=== PATIENT | male | born 1950 | race Caucasian/White ===

== ENCOUNTER 2016-11-12 08:51 | Inpatient (IN) | payer MEDICARE, OTHER ==
[2016-11-12] VITALS (17 sets, daily range): BP systolic 72–136; BP diastolic 44–91; PULSE 102–128; RESP 17–23; TEMP 97–100.4; O2SAT 90–100
[~2016-11-12] VITALS: Ht 177.8 cm; Wt 81.3 kg
[~2016-11-12 08:51] MED LIST: ALBU0.08 NEB; ATEN25TA PO; CARD180C5 PO; DULC10SU3 RECTAL; ENOX60P SQ; FOLI1TAB4 PO; LEVA750T PO; LIPI40TA PO; LISI-519 PO; MAGN400T3 PO; METO25TA3 PO; METR-1 PO; PLAV75TA29 PO; PRED10 PO; REST15CA PO; SPIRCAP INH; THERTAB15 PO; VENTAER INH; VITA100T2 PO; VITA500T PO; ZINC220C3 PO
[2016-11-12] MEDS ORDERED: PIPERACIL-TAZO 4.5 GM PREMIX 100 ML IV STA (09:08)
[2016-11-12] MEDS ORDERED: SODIUM CHLOR 0.9% 1000 ML INJ 700 ML IV ONE (09:08)
[2016-11-12] MEDS ORDERED: SODIUM CHLOR 0.9% 1000 ML INJ 1,000 ML IV ONE ×3 (09:08→13:30)
--- NOTE | 2016-11-12 10:06 | PD ---
HPI Chief Complaint: Altered Mental Status Time Seen by Provider: 09:08 Travel History International Travel<30 days: No Contact w/Intl Traveler<30days: No Traveled to known affect area: No History of Present Illness HPI This is a 65 year-old gentleman history of lung cancer, COPD, coronary artery disease, who presents from the snf with elevated temperature, hypotension, confusion. The patient was in the process of being started on antibiotics for a UTI however prior to starting the antibiotics, he was found to be profoundly hypotensive, confused with an elevated temperature. The patient also has multiple skin ulcers including his sacral area and his bilateral ankles. The patient is unable to give any history. He arrived his systolic blood pressure was in the 70s. He had a rectal temperature of 100.4. He was also tachycardic with a heart rate of 106. PFSH Past Medical History Cancer: No Cardiovascular Problems: No Diabetes: No Diminished Hearing: No Endocrine: No Genitourinary: No Hepatitis: No Hiatal Hernia: No Hypertension: Yes Immune Disorder: No Musculoskeletal: No Neurologic: No Psychiatric: No Respiratory: Yes (COPD) Thyroid Disease: No Past Surgical History Abdominal Surgery: Yes (appendectomy,left inguinal hernia repair x2) AICD: No Joint Replacement: No Oral Surgery: Yes (t&a) Pacemaker: No Other Surgery: Yes Social History Alcohol Use: No Tobacco Use: No Substance Use: No Allergies-Medications (Allergen,Severity, Reaction): Coded Allergies: No Known Allergies (Unverified , 07/08/16) Reported Meds & Prescriptions Reported Meds & Active Scripts Active Spiriva Handihaler (Tiotropium Inh) 18 Mcg Cap 18 Mcg INH DAILY 30 Days Ventolin Hfa 18 GM Inh (Albuterol Sulfate) 90 Mcg/Act Aer 2 Puff INH Q6H 30 Days Thera/Beta-Carotene (Multiple Vitamin) 1 Tab Tab 1 Tab PO DAILY 30 Days Zinc Sulfate 220 Mg Cap 220 Mg PO DAILY Vitamin B-1 (Thiamine HCl) 100 Mg Tab 100 Mg PO DAILY Lisinopril 5 Mg Tab 2.5 Mg PO DAILY Cardizem CD 24 HR (Diltiazem CD 24 HR) 180 Mg Caper 180 Mg PO DAILY Lipitor (Atorvastatin Calcium) 40 Mg Tab 40 Mg PO HS Atenolol 25 Mg Tab 12.5 Mg PO DAILY Vitamin C (Ascorbic Acid) 500 Mg Tab 500 Mg PO BID Reported Cipro (Ciprofloxacin HCl) 500 Mg Tab 500 Mg PO BID 7 Days Pyridium (Phenazopyridine HCl) 100 Mg Tab 100 Mg PO TID START:11/13/2016 Prosource Plus (Nutritional Supplements) 1 Liq Liq 30 Ml PO TID Lac-Hydrin (Lactic Acid (Ammonium Lactate)) 12% Lotn 1 Applic TOPICAL BID Apply to entire body excluding skin folds and web spaces Lovenox Inj (Enoxaparin Sodium) 100 Mg/Ml Syr 90 Mg SQ DAILY Remeron (Mirtazapine) 15 Mg Tab 15 Mg PO HS Ativan (Lorazepam) 0.5 Mg Tab 0.5 Mg PO Q8H PRN Ventolin Hfa 18 GM Inh (Albuterol Sulfate) 90 Mcg/Act Aer 2 Puff INH Q4H PRN Restoril (Temazepam) 15 Mg Cap 15 Mg PO HS Zofran (Ondansetron HCl) 8 Mg Tab 8 Mg PO Q8HR PRN Citroma Liq (Magnesium Citrate) 300 Ml Liq 300 Ml PO DAILY PRN Enema Disposable (Sodium Phosphates) 1 Veronica Veronica 1 Applic [place] DAILY PRN Milk of Magnesia Liq (Magnesium Hydroxide) 400 Mg/5 Ml Susp 30 Ml PO DAILY PRN Prednisone 10 Mg Tab 10 Mg PO DAILY Melatonin 3 Mg Tab 3 Mg PO HS Magnesium Oxide 400 Mg Tab 400 Mg PO BID Albuterol Neb (Albuterol Sulfate) 2.5 Mg/3 Ml Neb 2.5 Mg NEB Q2HR PRN Albuterol Neb (Albuterol Sulfate) 2.5 Mg/3 Ml Neb 2.5 Mg NEB QID Tylenol (Acetaminophen) 325 Mg Tab 650 Mg PO Q4H PRN Plavix (Clopidogrel Bisulfate) 75 Mg Tab 75 Mg PO DAILY Folate (Folic Acid) 1 Mg Tab 1 Mg PO DAILY Dulcolax Supp (Bisacodyl) 10 Mg Supp 10 Mg RECTAL DAILY PRN Review of Systems ROS Limitations: Clinical Condition, Altered Mental Status Except as stated in HPI: all other systems reviewed are Neg Physical Exam Narrative GENERAL: Elderly ill appearing gentleman in no acute respiratory distress. SKIN: Warm and dry. HEAD: Atraumatic. Normocephalic. EYES: No scleral icterus. No injection or drainage. ENT: No nasal bleeding or discharge. Dry mucous membranes NECK: Trachea midline. No JVD. CARDIOVASCULAR: Tachycardic with regular rhythm. No murmur appreciated. RESPIRATORY: No accessory muscle use. Clear to auscultation. Decreased respiratory effort GASTROINTESTINAL: Abdomen soft, cachectic, non-tender, nondistended. BACK: The patient has stage I and stage II pressure sores on his buttocks. There was a pressure dressing placed here. MUSCULOSKELETAL: Bilateral ankle pressure wounds. NEUROLOGICAL: Lethargic and obtunded. Would not follow commands but was observed moving his extremities on his own. Data Data Last Documented VS Vital Signs Date Time Temp Pulse Resp B/P Pulse Ox O2 Delivery O2 Flow Rate FiO2 11/12/16 11:00 98.4 104 17 104/59 98 Non-Rebreather 100 Orders Complete Blood Count With Diff (11/12/16 09:08) Comprehensive Metabolic Panel (11/12/16 09:08) Lactic Acid Sepsis Protocol (11/12/16 09:08) Urinalysis - C+S If Indicated (11/12/16 09:08) Blood Culture (11/12/16 09:08) Chest, Single Ap (11/12/16 09:08) Blood Glucose (11/12/16 09:08) Ecg Monitoring (11/12/16 09:08) Iv Access Insert/Monitor (11/12/16 09:08) Oximetry (11/12/16 09:08) Oxygen Administration (11/12/16 09:08) Piperacil-Tazo 4.5 Gm Premix (Zosyn 4.5 (11/12/16 09:08) Sodium Chlor 0.9% 1000 Ml Inj (Ns 1000 M (11/12/16 09:08) Sodium Chlor 0.9% 1000 Ml Inj (Ns 1000 M (11/12/16 09:08) Sodium Chlor 0.9% 1000 Ml Inj (Ns 1000 M (11/12/16 09:08) Consult Vascular Access Team (11/12/16 ) Vascular Poc Ultrasound (11/12/16 ) Norepinephrine-Dextrose Drip (Levophed-D (11/12/16 11:00) Urine Culture (11/12/16 09:57) Piperacil-Tazo 4.5 Gm Premix (Zosyn 4.5 (11/12/16 16:00) Admit To Inpatient (11/12/16 ) Code Status (11/12/16 10:57) Vital Signs (Adult) VILMA.Q1H (11/12/16 10:57) ^ Elevate Head Of Bed (11/12/16 10:57) Diet Npo (11/12/16 Lunch) Sodium Chlor 0.9% 1000 Ml Inj (Ns 1000 M (11/12/16 10:57) Sodium Chloride 0.9% Flush (Ns Flush) (11/12/16 11:00) Sodium Chloride 0.9% Flush (Ns Flush) (11/12/16 21:00) Acetaminophen (Tylenol) (11/12/16 12:00) Pantoprazole Inj (Protonix Inj) (11/13/16 09:00) Albuterol-Ipratropium Neb (Duoneb Neb) (11/12/16 16:00) Albuterol-Ipratropium Neb (Duoneb Neb) (11/12/16 12:00) Complete Blood Count With Diff (11/13/16 04:00) Comprehensive Metabolic Panel (11/13/16 04:00) Count Team Member / Telemetry (11/12/16 10:57) Enoxaparin Inj (Lovenox Inj) (11/12/16 12:00) Scd Bilateral/Knee High VILMA.BID (11/12/16 10:57) Benny Bilateral/Knee High VILMA.QSHIFT (11/12/16 10:57) ^ Initiate Protocol (11/12/16 10:57) ^ Instruction (11/12/16 10:57) [facility] [place] [facility] Information (11/12/16 11:00) Chlorhexidine 2% Cloth (Chlorhexidine 2% (11/13/16 04:00) Chlorhexidine 2% Cloth (Chlorhexidine 2% (11/12/16 11:00) Mrsa Pcr Surveillance (11/12/16 10:57) Inpatient Certification (11/12/16 ) Tiotropium Inh (Spiriva Inh) (11/13/16 09:00) Clopidogrel (Plavix) (11/13/16 09:00) Hydrocortisone Inj (Solucortef Inj) (11/12/16 14:00) Ct Thorax/ Chest Wo Iv Contras (11/12/16 ) Heparin Infusion VILMA.Q1H (11/12/16 11:08) Heparin-D5w Inj (Heparin-D5w Inj) (11/12/16 11:15) Act Partial Throm Time (Ptt) (11/12/16 11:08) Prothrombin Time / Inr (Pt) (11/12/16 11:08) Cbc No Diff, Includes Plts (11/12/16 11:08) Cbc No Diff, Includes Plts (11/15/16 06:00) Act Partial Throm Time (Ptt) (11/12/16 18:08) Occult Blood (Hemoccult) Stool (11/12/16 11:08) Labs Laboratory Tests Test 11/12/16 11/12/16 11/12/16 09:35 09:45 09:57 White Blood Count 4.4 TH/MM3 Red Blood Count 2.42 MIL/MM3 Hemoglobin 7.3 GM/DL Hematocrit 22.2 % Mean Corpuscular Volume 91.5 FL Mean Corpuscular Hemoglobin 30.1 PG Mean Corpuscular Hemoglobin 32.9 % Concent Red Cell Distribution Width 19.8 % Platelet Count 200 TH/MM3 Mean Platelet Volume 7.5 FL Neutrophils (%) (Auto) 87.3 % Lymphocytes (%) (Auto) 2.0 % Monocytes (%) (Auto) 10.4 % Eosinophils (%) (Auto) 0.2 % Basophils (%) (Auto) 0.1 % Neutrophils # (Auto) 3.9 TH/MM3 Lymphocytes # (Auto) 0.1 TH/MM3 Monocytes # (Auto) 0.5 TH/MM3 Eosinophils # (Auto) 0.0 TH/MM3 Basophils # (Auto) 0.0 TH/MM3 CBC Comment AUTO DIFF Differential Total Cells 100 Counted Neutrophils % (Manual) 33 % Band Neutrophils % 44 % Lymphocytes % 4 % Monocytes % 17 % Neutrophils # (Manual) 3.5 TH/MM3 Myelocytes 2 % Differential Comment FINAL DIFF MANUAL Toxic Vacuolation PRESENT Platelet Estimate NORMAL Platelet Morphology Comment NORMAL Sodium Level 133 MEQ/L Potassium Level 3.8 MEQ/L Chloride Level 98 MEQ/L Carbon Dioxide Level 23.3 MEQ/L Anion Gap 12 MEQ/L Blood Urea Nitrogen 36 MG/DL Creatinine 1.09 MG/DL Estimat Glomerular Filtration 67 ML/MIN Rate Random Glucose 103 MG/DL Calcium Level 7.4 MG/DL Protein Corrected Calcium 8.8 MG/DL Total Bilirubin 0.4 MG/DL Aspartate Amino Transf 11 U/L (AST/SGOT) Alanine Aminotransferase 11 U/L (ALT/SGPT) Alkaline Phosphatase 76 U/L Total Protein 4.7 GM/DL Albumin 1.5 GM/DL Lactic Acid Level 2.4 mmol/L Urine Color YELLOW Urine Turbidity HAZY Urine pH 7.0 Urine Specific [place] 1.022 Urine Protein 100 mg/dL Urine Glucose (UA) NEG mg/dL Urine Ketones TRACE mg/dL Urine Occult Blood MOD Urine Nitrite NEG Urine Bilirubin NEG Urine Urobilinogen 2.0 MG/DL Urine Leukocyte Esterase MOD Urine RBC /hpf Urine WBC /hpf Urine WBC Clumps MANY Urine Squamous Epithelial 3 /hpf Cells Urine Transitional Epithelial 11 /hpf Cells Urine Amorphous Sediment MOD Urine Mucus FEW /lpf Microscopic Urinalysis Comment CATH-CULTURE IND MDM Medical Decision Making Medical Screen Exam Complete: Yes Emergency Medical Condition: Yes Differential Diagnosis Sepsis versus metabolic arrangement versus dehydration Narrative Course This is a 65 year-old gentleman who presents from the snf with hypotension and fever. The patient has a known UTI and was to be started on antibiotics at the snf. He presents today with blood pressure in the 70 systolic. Sepsis protocol was initiated. He was given 3 L of IVD fluid. His blood pressure did increase to 104 systolic. He's been started on Zosyn as I believe the source is his urine. Dr. Shelia Dan, line tender [place], has been gracious enough to come to see the patient and he'll be taken to the intensive care unit. Diagnosis Primary Impression: Septic shock Additional Impressions: Hypotension Anemia UTI (urinary tract infection) Kiel Cox MD Nov 12, 2016 10:06
[2016-11-12 10:14] LABS: AUTOMATED NEUTROPHIL # 3.9 TH/MM3 (1.8-7.7); BASOPHIL % 0.1 % (0.0-2.0); EOSINOPHIL % 0.2 % (0.0-4.0); HEMATOCRIT 22.2 % (39.0-51.0); LYMPHOCYTE # 0.1 TH/MM3 (1.0-4.8); MEAN CELL VOLUME 91.5 FL (80.0-100.0); MEAN CORPUSCULAR HEMOGLOBIN 30.1 PG (27.0-34.0); MEAN CORPUSCULAR HGB CONC 32.9 % (32.0-36.0); MONO % 10.4 % (0.0-8.0); NEUT % 87.3 % (16.0-70.0); PLATELET COUNT 200 TH/MM3 (150-450); RED BLOOD COUNT 2.42 MIL/MM3 (4.50-5.90); RED CELL DISTRIBUTION WIDTH 19.8 % (11.6-17.2); WHITE BLOOD COUNT 4.4 TH/MM3 (4.0-11.0)
[2016-11-12] MEDS ORDERED: ALBU0.08 NEB ×2 (10:22)
[2016-11-12] MEDS ORDERED: MILKSUS PO (10:22)
[2016-11-12] MEDS ORDERED: REST15CA PO (10:22)
[2016-11-12] MEDS ORDERED: MAGN400T2 PO (10:22)
[2016-11-12] MEDS ORDERED: LORA-392 PO (10:22)
[2016-11-12] MEDS ORDERED: VENTAER INH (10:22)
[2016-11-12] MEDS ORDERED: ZOFR8TAB PO (10:22)
[2016-11-12] MEDS ORDERED: PHEN0.4T PO (10:22)
[2016-11-12] MEDS ORDERED: PRED10 PO (10:22)
[2016-11-12] MEDS ORDERED: PROSLIQ PO (10:22)
[2016-11-12] MEDS ORDERED: ENOX100P SQ (10:22)
[2016-11-12] MEDS ORDERED: CITRSOL4 PO (10:22)
[2016-11-12] MEDS ORDERED: ENEMENE5 PR (10:22)
[2016-11-12] MEDS ORDERED: CIPR-9 PO (10:22)
[2016-11-12] MEDS ORDERED: MELA3TAB PO (10:22)
[2016-11-12] MEDS ORDERED: REME15TA PO (10:22)
[2016-11-12] MEDS ORDERED: TYLE325T PO (10:22)
[2016-11-12] MEDS ORDERED: LAC-12LO3 TOPICAL (10:22)
[2016-11-12 10:30] LABS: HEMO FLAGS AUTO DIFF
[2016-11-12 10:41] LABS: BICARBONATE 23.3 MEQ/L (21.0-32.0); CALCIUM-PROTEIN CORRECTED 8.8 MG/DL (8.5-10.1); POTASSIUM 3.8 MEQ/L (3.5-5.1); TOTAL BILIRUBIN ADULT 0.4 MG/DL (0.2-1.0)
[2016-11-12 10:53] LABS: BANDS 44 % (0-6); MYELOCYTES 2 % (0-0); NEUTROPHIL # MANUAL DIFF 3.5 TH/MM3 (1.8-7.7); PLATELET ESTIMATE SMEAR NORMAL (NORMAL); PLATELET MORPHOLOGY NORMAL (NORMAL); POLYS (SEG NEUTROPHILS) 33 % (16-70); SCAN/DIFF FINAL DIFF MANUAL; WBC DIFF SAMPLE 100
[2016-11-12 10:55] LABS: TOXIC VACUOLATION PRESENT (NONE SEEN)
[2016-11-12 10:55] LABS: BLOOD, URINE MOD (NEG); COMMENT (UR) CATH-CULTURE IND; CULTURE IF INDICATED CATH CULTURE IND; GLUCOSE,URINE NEG (NEG); KETONE, URINE TRACE mg/dL (NEG); MUCUS URINE FEW /lpf (OCC); NITRITE,URINE NEG (NEG); SQUAMOUS EPITHELIAL CELL URINE 3 /hpf (0-5); TRANSITIONAL EPI CELLS, URINE 11 /hpf; URINE COLOR YELLOW (YELLW/STRAW)
--- NOTE | 2016-11-12 10:55 | RADRPT ---
EXAM DATE/TIME: 11/12/2016 09:30 [facility] COMPARISON: CT THORAX W CONTRAST, August 27, 2016, 11:52. CHEST SINGLE AP, August 29, 2016, 5:26. INDICATIONS : Shortness of breath. Altered mental status. MEDICAL HISTORY : Hypertension. Chronic obstructive pulmonary disease. SURGICAL HISTORY : None. ENCOUNTER: Initial ACUITY: 1 day PAIN SCORE: Non-responsive. LOCATION: Bilateral chest FINDINGS: Single AP view of the chest. There is evidence of reexpansion of the right lung when compared to the prior study of 08/29/2016. Small moderate size left pleural effusion is now seen. Small right pleural effusion. Patchy groundglass opacity at the right lung apex. Patchy parenchymal opacity in the left p erihilar region. CONCLUSION: Left greater than right pleural effusions. Bilateral patchy parenchymal opacity in the right lung ape x and left perihilar region. Prashant Valdez MD on November 12, 2016 at 10:49 Board Certified Radiologist. This report was verified electronically.
[2016-11-12] MEDS ORDERED: MISCELLANEOUS NURSING INFORMATION XX SCH (11:00)
[2016-11-12] MEDS ORDERED: NOREPINEPHRINE-DEXTROSE DRIP 250 ML IV SCH (11:00)
[2016-11-12] MEDS ORDERED: CHLORHEXIDINE GLUCONATE 2 % 1 PACK (2 CLOTHS) TOP PRN (11:00)
--- NOTE | 2016-11-12 11:10 | HHI.HP ---
HPI Service Critical Care Medicine Primary Care Physician Pravin Calvillo MD Admission Diagnosis Diagnosis: (1) Septic shock Diagnosis: Principal (2) UTI (urinary tract infection) Diagnosis: Principal (3) Acute encephalopathy Diagnosis: Principal (4) HCAP (healthcare-associated pneumonia) Diagnosis: Principal (5) Anemia Diagnosis: Principal (6) STEMI (ST elevation myocardial infarction) Diagnosis: Secondary (7) Afib Diagnosis: Secondary (8) Pulmonary embolism Diagnosis: Secondary (9) Non-small cell lung cancer (NSCLC) Diagnosis: Secondary (10) COPD (chronic obstructive pulmonary disease) Diagnosis: Secondary Chief Complaint: Altered mentation Septic shock Travel History International Travel<30 Days: No Contact w/Intl Traveler <30 Da: No Traveled to Known Affected Are: No History of Present Illness This is a 64-year-old male with history of COPD, hypertension, coronary artery disease, STEMI on 07/08/16 s/p PCI and DELMY (Dr. Crouch), history of C. difficile colitis, non-small cell lung cancer receiving chemoradiation per Dr. Monteiro, history of pulmonary embolism on Lovenox who was admitted to hospital recently from 07/08-08/31/16 with above diagnoses. During that admission he was noted to have a mediastinal and lung mass which was invading bilateral mainstem bronchi- subsequently diagnosed as a non-small cell lung cancer(adenocarcinoma). He had complete atelectasis of the right lung last admission which required bronchoscopy 2. With chemoradiation obstruction improved with resolution of atelectasis. [facility], hypotension, confusion. Apparently patient was to be started on antibiotics for a UTI however prior to starting the antibiotics, he was found to be profoundly hypotensive, confused and was sent to ER. The patient also was noted to have diarrhea. His initial systolic blood pressure was in the 70s, rectal temperature of 100.4 and also tachycardic with a heart rate in 100's. Source of infection seems to be UTI, though HCAP cannot be ruled out. X-ray and CT of the chest shows bilateral pleural effusions left larger than right associated with infiltrate/atelectasis. He has multiple skin ulcers including his sacral area and his bilateral ankles. Patient received 3 L normal saline bolus with improvement in blood pressure. Levophed ordered. I have started patient on stress dose steroids as he was receiving pred[facility]one [facility] . Patient received Zosyn in the ED. I will place patient on cefepime, Flagyl (hx of C Diff) and IV vancomycin. Infectious disease consulted for septic shock in an immunocompromised patient. Review of Systems ROS Limitations: Altered Mental Status Past Family Social History Allergies: Coded Allergies: No Known Allergies (Unverified , 07/08/16) Past Medical History Adenocarcinoma of the lung on chemotherapy with cisplatin/Taxotere, and radiotherapy STEMI 07/08/16 status post cardiac catheterization and PCI/DELMY to D1 (Dr. 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 Peripheral vascular disease status post revascularization of the lower extremities Past Surgical History Appendectomy Inguinal hernia repair 2 Recent left heart catheterization 07/08/16 with PCI/DELMY to D1 Reported Medications Metoprolol Tartrate 25 Mg Tab 25 Mg PO Q8HR Spiriva Handihaler (Tiotropium Inh) 18 Mcg Cap 18 Mcg INH DAILY 30 Days Ventolin Hfa 18 GM Inh (Albuterol Sulfate) 90 Mcg/Act Aer 2 Puff INH Q6H 30 Days Thera/Beta-Carotene (Multiple Vitamin) 1 Tab Tab 1 Tab PO DAILY 30 Days Levaquin (Levofloxacin) 750 Mg Tab 750 Mg PO DAILY 5 Days Zinc Sulfate 220 Mg Cap 220 Mg PO DAILY Vitamin B-1 (Thiamine HCl) 100 Mg Tab 100 Mg PO DAILY Restoril (Temazepam) 15 Mg Cap 15 Mg PO HS PRN Prednisone 10 Mg Tab 10 Mg PO BID Flagyl (Metronidazole) 500 Mg Tab 500 Mg PO Q8HR Magnesium Oxide 241.3 Mg Tab 400 Mg PO BID Lisinopril 5 Mg Tab 2.5 Mg PO DAILY Lovenox Inj (Enoxaparin Sodium) 60 Mg/0.6 Ml Syr 60 Mg SQ Q12H Cardizem CD 24 HR (Diltiazem CD 24 HR) 180 Mg Caper 180 Mg PO DAILY Lipitor (Atorvastatin Calcium) 40 Mg Tab 40 Mg PO HS Atenolol 25 Mg Tab 12.5 Mg PO DAILY Vitamin C (Ascorbic Acid) 500 Mg Tab 500 Mg PO BID Albuterol Neb (Albuterol Sulfate) 2.5 Mg/3 Ml Neb 2.5 Mg NEB Q2HR NEB PRN Plavix (Clopidogrel Bisulfate) 75 Mg Tab 75 Mg PO DAILY Folate (Folic Acid) 1 Mg Tab 1 Mg PO DAILY Dulcolax Supp (Bisacodyl) 10 Mg Supp 10 Mg RECTAL DAILY PRN Active Ordered Medications Reviewed Family History Family history significant for hypertension diabetes Social History [id number] history of smoking recently quit Drinks 1-2 beers daily Physical Exam Vital Signs Vital Signs Date Time Temp Pulse Resp B/P Pulse Ox O2 Delivery O2 Flow Rate FiO2 11/12/16 10:00 99.5 103 20 84/46 97 Non-Rebreather 100 11/12/16 09:30 105 21 87/49 98 Non-Rebreather 100 11/12/16 09:15 108 21 73/48 97 Non-Rebreather 100 11/12/16 09:01 100.4 107 22 72/44 100 Non-Rebreather 100 11/12/16 09:01 Non-Rebreather 100 11/12/16 09:01 100 11/12/16 09:01 T-piece 100 11/12/16 09:01 100.4 107 22 72/44 100 Physical Exam GENERAL: Elderly ill cachectic gentleman who appears pale, critically ill, lethargic SKIN: Warm and dry. HEAD: Atraumatic. Normocephalic. EYES: No scleral icterus. No injection or drainage. ENT: No nasal bleeding or discharge. Dry mucous membranes NECK: Trachea midline. No JVD. CARDIOVASCULAR: Tachycardic with regular rhythm. No murmur appreciated. RESPIRATORY: No accessory muscle use, diminished breath sound at bases. Bedside US shows moderate L pleural effusion GASTROINTESTINAL: Abdomen soft, cachectic, non-tender, nondistended. BACK/SKIN: The patient has stage I - II pressure sores on his presacral area and ankles. MUSCULOSKELETAL: Bilateral ankle pressure wounds. NEUROLOGICAL: Lethargic and obtunded. Opens eyes on repeated requests. Moves all extremities Laboratory Laboratory Tests Test 11/12/16 11/12/16 11/12/16 09:35 09:45 09:57 White Blood Count 4.4 Red Blood Count 2.42 Hemoglobin 7.3 Hematocrit 22.2 Mean Corpuscular Volume 91.5 Mean Corpuscular Hemoglobin 30.1 Mean Corpuscular Hemoglobin 32.9 Concent Red Cell Distribution Width 19.8 Platelet Count 200 Mean Platelet Volume 7.5 Neutrophils (%) (Auto) 87.3 Lymphocytes (%) (Auto) 2.0 Monocytes (%) (Auto) 10.4 Eosinophils (%) (Auto) 0.2 Basophils (%) (Auto) 0.1 Neutrophils # (Auto) 3.9 Lymphocytes # (Auto) 0.1 Monocytes # (Auto) 0.5 Eosinophils # (Auto) 0.0 Basophils # (Auto) 0.0 CBC Comment AUTO DIFF Differential Total Cells 100 Counted Neutrophils % (Manual) 33 Band Neutrophils % 44 Lymphocytes % 4 Monocytes % 17 Neutrophils # (Manual) 3.5 Myelocytes 2 Differential Comment FINAL DIFF MANUAL Toxic Vacuolation PRESENT Platelet Estimate NORMAL Platelet Morphology Comment NORMAL Sodium Level 133 Potassium Level 3.8 Chloride Level 98 Carbon Dioxide Level 23.3 Anion Gap 12 Blood Urea Nitrogen 36 Creatinine 1.09 Estimat Glomerular Filtration 67 Rate Random Glucose 103 Calcium Level 7.4 Protein Corrected Calcium 8.8 Total Bilirubin 0.4 Aspartate Amino Transf 11 (AST/SGOT) Alanine Aminotransferase 11 (ALT/SGPT) Alkaline Phosphatase 76 Total Protein 4.7 Albumin 1.5 Lactic Acid Level 2.4 Urine Color YELLOW Urine Turbidity HAZY Urine pH 7.0 Urine Specific [place] 1.022 Urine Protein 100 Urine Glucose (UA) NEG Urine Ketones TRACE Urine Occult Blood MOD Urine Nitrite NEG Urine Bilirubin NEG Urine Urobilinogen 2.0 Urine Leukocyte Esterase MOD Urine RBC Urine WBC Urine WBC Clumps MANY Urine Squamous Epithelial 3 Cells Urine Transitional Epithelial 11 Cells Urine Amorphous Sediment MOD Urine Mucus FEW Microscopic Urinalysis Comment CATH-CULTURE IND Date/Time Procedure Status Source Growth 11/12/16 09:57 Urine Culture Received Urine Clean Catch Pending 11/12/16 09:45 Aerobic Blood Culture Received Blood Peripheral Pending 11/12/16 09:45 Anaerobic Blood Culture Received Blood Peripheral Pending Result Diagram: 11/12/1693411/12/[address] cheat L>R pleural effusion Septic Shock Reassessment Heart: Irregular Lungs: Diminished Skin: Warm Peripheral Pulses: Weak Right Radial Weak Left Radial Capillary Refill: Sluggish Assessment and Plan Assessment and Plan NEURO: Acute metabolic encephalopathy Previous CVA -Minimize sedation, watch neuro status closely RESP: Respiratory insufficiency Left more than right pleural effusion Possible HCAP COPD Adenocarcinoma of the lung -Wean FiO2 to keep saturation more than 90% -DuoNeb every 6 hours scheduled and when necessary -On chronic prednisone, start stress dose steroids -Left pleural effusion-plan for thoracentesis with further fluid studies -Empiric antibiotics, follow up on culture -On chemoradiation per Dr. Monteiro CV: Hypotension Lactic acidosis Coronary artery disease Status post STEMI 07/08/16 with PCI/DELMY to D1 Normal saline IV fluids 3L bolus and 75 ml per hour Levophed to keep map above 75 Hold beta blockers and jakub inhibitors Continue Plavix Echo 08/15 EF 55-60% GI: Diarrhea History C. difficile colitis -Check for C. difficile, start empiric Flagyl IV -Nothing by mouth until hemodynamically stable, IV Protonix : -Monitor renal function closely. Noble catheter. Continue aggressive fluid hydration ID: Septic shock UTI Possible HCAP History of C. difficile colitis -Placed on IV vancomycin 1 continued cefepime and Flagyl -Follow up on blood urine and sputum cultures, follow bun C. difficile HEME: Non-small cell lung cancer Pulmonary embolism diagnosed on 07/08/16 -Hold Lovenox start IV heparin due to anticipated procedures -Had been started on chemoradiation therapy Dr. Monteiro -Consult heme onc and pulmonary once hemodynamically more stable ENDO: -Electrolyte replacement protocol, sliding scale insulin if needed PROPH: -Bilateral lower extremity SCDs. IV heparin, IV Protonix LINES: -Utilize peripheral IVs, central line if needed CC time 95 min Code Status Full Discussed Condition With Dr. Cox Problem Qualifiers (1) UTI (urinary tract infection): (2) Anemia: (3) STEMI (ST elevation myocardial infarction): Qualified Code: I21.3 - ST elevation myocardial infarction (STEMI), unspecified artery Shelia Dan MD Nov 12, 2016 11:10
[2016-11-12] MEDS ORDERED: Vancomycin Consult Pharmacy 1 EA OTHER SCH (11:15)
[2016-11-12] MEDS: SODIUM CHLOR 0.9% 1000 ML INJ 1,000 ML IV SCH ×2 (11:34→18:26)
[2016-11-12] MEDS ORDERED: ENOXAPARIN SODIUM 40 MG/0.4 ML SYRINGE SQ SCH (12:00)
[2016-11-12] MEDS ORDERED: RESP: ALBUTEROL 2.5 MG/IPRATROPIUM 0.5 MG NEB (PRN) INH (12:00)
[2016-11-12] MEDS ORDERED: VANCOMYCIN INJ 1,250 MG in SODIUM CHLOR 0.9% 250 ML INJ 250 ML IV ONE (12:00)
[2016-11-12 12:02] LABS: LACTIC ACID GHOST NOT REPORTABLE
--- NOTE | 2016-11-12 12:06 | RADRPT ---
EXAM DATE/TIME: 11/12/2016 11:23 [facility] COMPARISON: CT THORAX W CONTRAST, August 27, 2016, 11:52. CHEST SINGLE AP, November 12, 2016, 9:30. INDICATIONS : Abnormal chest xray. Effusion. Short of breath. RADIATION DOSE: 6.86 CTDIvol (mGy) MEDICAL HISTORY : Hypertension. Chronic obstructive pulmonary disease. SURGICAL HISTORY : Appendectomy. ENCOUNTER: Initial ACUITY: 1 day PAIN SCALE: Non-responsive LOCATION: chest TECHNIQUE: Volumetric scanning of the chest was performed. Using automated exposure control and adjustment of t he mA and/or kV according to patient size, radiation dose was kept as low as reasonably achievable to obtain optimal diagnostic quality images. FINDINGS: LUNGS: Moderate-sized areas of atelectasis bilaterally at the dependent portions of the lungs. Mild pulmonar y parenchymal emphysema with upper lobe predominance. PLEURAE: Moderate-sized left pleural effusion. Small right pleural effusion. MEDIASTINUM: Mediastinal lymphadenopathy is again identified. The confluent mass in the right hilar/precarinal/sub carinal region is less prominent than on the comparison study. It now measures 6.7 x 2.1 cm compared to 8.2 x 4.8 cm. Right paratracheal lymph node measures 1.9 cm on image #24 compared to 2.8 cm on the prior study. Coronary artery calcifications. AXILLAE: Within normal limits. No lymphadenopathy. MUSCULOSKELETAL: Within normal limits for patient age. MISCELLANEOUS: The visualized upper abdominal organs demonstrate no acute abnormality. CONCLUSION: 1. Bilateral pleural effusions left greater than right. Bilateral dependent parenchymal lung opacity indicating atelectasis. 2. Decrease in size of right hilar and mediastinal mass/enlarged lymph nodes. Prashant Valdez MD on November 12, 2016 at 11:55 Board Certified Radiologist. This report was verified electronically.
[2016-11-12] MEDS ORDERED: RESP: ALBUTEROL 2.5 MG/IPRATROPIUM 0.5 MG NEB (PRN) NEB (12:30)
[2016-11-12 13:25] LABS: BLOOD GAS BASE EXCESS -2.2 mmol/L (-2-2); BLOOD GAS CARBOXYHEMOGLOBIN 1.7 % (0-4); BLOOD GAS HCO3 20 mmol/L (22-26); BLOOD GAS METHEMOGLOBIN 1.2 % (0-2); BLOOD GAS O2 HGB SATURATION 95 % (90-100); BLOOD GAS OXYGEN CONTENT 9.7 Vol % (12.0-20.0); BLOOD GAS PCO2 24 mmHg (38-42); BLOOD GAS PO2 101 mmHg (61-120); BLOOD GAS TOTAL HGB 7.1 G/DL (12.0-16.0); CRITICAL VALUE YES; TEMP CORR TO 98.6
[2016-11-12 13:26] LABS: DRAW SITE LT RADIAL; FIO2 100 %; LITER FLOW 15 L/M; NUMBER OF ARTERIAL PUNCTURES 1; STAT YES; ULNAR PULSE PRESENT
[2016-11-12] MEDS ORDERED: TERBUTALINE INJ 1 MG/ML AMP SQ PRN (13:30)
[2016-11-12 13:33] LABS: MEAN CORPUSCULAR HGB CONC 33.8 % (32.0-36.0); PLATELET COUNT 210 TH/MM3 (150-450); RED BLOOD COUNT 2.26 MIL/MM3 (4.50-5.90); RED CELL DISTRIBUTION WIDTH 19.9 % (11.6-17.2); REVIEW FLAG FINAL
[2016-11-12 13:35] LABS: HEMATOCRIT 20.1 % (39.0-51.0)
[2016-11-12 13:41] LABS: APTT (PATIENT) 37.3 SEC (24.3-30.1); PROTHROMBIN TIME - PATIENT 11.2 SEC (9.8-11.6)
[2016-11-12] MEDS ORDERED: MORPHINE SULFATE 8 MG/ML INJ ONE ×2 (13:58→14:51)
[2016-11-12] MEDS ORDERED: LORazepam 2 MG/ML VIAL ONE ×3 (14:02→14:52)
[2016-11-12] MEDS ORDERED: LIDOCAINE 1%/EPINEPHrine 1:100,000 SOLN 30 ML VIAL ONE (15:09)
--- NOTE | 2016-11-12 15:19 | RADRPT ---
EXAM DATE/TIME: 11/12/2016 14:31 [facility] COMPARISON: CHEST SINGLE AP, November 12, 2016, 9:30. INDICATIONS : Status Post Central Line Placement. MEDICAL HISTORY : Hypertension. Chronic obstructive pulmonary disease. SURGICAL HISTORY : Appendectomy. ENCOUNTER: Initial ACUITY: 1 day PAIN SCORE: Non-responsive. LOCATION: Bilateral chest FINDINGS: Single AP view of the chest. Left subclavian central venous catheter is now seen. It courses into the neck. The tip the catheter is above the [id number] of the radiograph. Hazy bilateral opacity curt cating pleural effusions/parenchymal opacity unchanged. No evidence of pneumothorax. Cardiomediastina l silhouette unchanged. CONCLUSION: 1. Left subclavian central venous catheter coursing into the neck. Tip of the catheter is above the f [id number] of the radiograph. This finding was discussed with the patient's nurse. 2. No evidence of pneumothorax. 3. No change in bilateral pleural effusions/parenchymal opacity. Prashant Valdez MD on November 12, 2016 at 15:15 Board Certified Radiologist. This report was verified electronically.
--- NOTE | 2016-11-12 15:58 | PD.PROCEDR ---
Central Line Procedure REASON FOR PROCEDURE Central venous access PROCEDURE PERFORMED Central line placement: L subclavian CONSENT Informed consent for procedure was obtained and time out was performed. The risks and benefits of the procedure were discussed to include but limited to bleeding, clot formation, infection, and even . ANESTHESIA Local injection of 1% Lidocaine DESCRIPTION OF THE PROCEDURE The patient was placed in supine, mild Trendelenburg position. The area was exposed and cleansed with ChloraPrep, times two. Large sterile drape was used to cover the patient, with the site exposed, under sterile conditions including cap, face mask, sterile gown, and sterile gloves. The introducer needle was inserted with negative pressure in syringe and venous flash was obtained. The guide wire was then advanced with some restriction and the needle was removed. The dilator was used without any complications. Using Seldinger technique the 20 CM 7F triple lumen ABX coated catheter was advanced over the guide wire to a depth of 16 centimeters. The guide wire was removed. All ports were aspirated with dark venous blood return and flushed easily with sterile saline. All ports were capped. Antibiotic disc was placed around central line at puncture site. The central line was secured to the skin with two interrupted 2.0 silk sutures. The area was bandaged with sterile see-through central line bandage. CXR showed central line advancing into the L IJ. So this line was removed and the above procedure was repeated and new L subclavian central line placed without guidewire encountering any restriction COMPLICATIONS: No apparent complications ESTIMATED BLOOD LOSS: Less than 1 cc. Shelia Dan MD Nov 12, 2016 15:58
[2016-11-12] MEDS ORDERED: PIPERACIL-TAZO 4.5 GM PREMIX 100 ML IV SCH (16:00)
[2016-11-12] MEDS ORDERED: RESP: ALBUTEROL 2.5 MG/IPRATROPIUM 0.5 MG NEB (SCH) INH (16:00)
--- NOTE | 2016-11-12 16:01 | PD.PROCEDR ---
Procedure Note Procedure Procedure Notes: Thoracentesis Indication:Moderate to Large pleural effusion A time-out was completed verifying correct patient, procedure, site, positioning , and special equipment if applicable. The patient's left side was prepped and draped in a sterile manner after the appropriate infiltration level was confirmed by ultrasound. 1% lidocaine was used anesthetize the surrounding skin. A 10-blade scalpel used to make the incision. The thoracentesis Angio cath was then introduced without difficulty and needle was removed. Sample pleural fluid was collected for further lab study. Wound was taken brown colored appearing like old blood. Catheter was connected to Vacutainer bottle currently approximately 50 ML of thick viscous brown colored fluid drained. A post-procedure chest x-ray was ordered and the fluid will be sent for several studies. Estimated Blood Loss: <1 ml The patient tolerated the procedure well and there were no immediate complications. Plan is to place a 32F large bore chest tube due to suspicion of old hemothorax Shelia Dan MD Nov 12, 2016 16:01
--- NOTE | 2016-11-12 16:07 | PD.PROCEDR ---
Procedure Note Procedure THORACOSTOMY (CHEST TUBE) PLACEMENT Date: 11/12/16 Indication: Probable left hemothorax Performed by Dr. Shelia Dan MD A time-out was completed verifying correct patient, procedure, site, positioning , and special equipment if applicable. The patient was positioned appropriately for chest tube placement. The patient's left chest was prepped and draped in sterile fashion. 1% Lidocaine was used to anesthetize the surrounding skin area. A 1 cm skin incision was made in the mid-axillary line at the inframammary crease. Utilizing blunt dissection a subcutaneous tunnel was created cephalad just adjacent to the superior rib. The pleural space was entered bluntly and gush of blood tinged pleural fluid was observed. A finger was inserted into the pleural space to check for anatomy, and guide tube insertion. With the finger sweep, it was made sure there were no adhesions. A 32F thoracostomy tube was inserted and positioned appropriately. The chest tube was sutured securely to the skin and a sterile dressing applied. A Pleuro-Vac was attached to the chest tube and a chest x-ray ordered Estimated Blood Loss: 3ml The patient tolerated the procedure well and there were no complications. Shelia Dan MD Nov 12, 2016 16:07
[2016-11-12] MEDS: RESP: ALBUTEROL 2.5 MG/IPRATROPIUM 0.5 MG NEB (SCH) NEB ×2 (16:12→21:10)
--- NOTE | 2016-11-12 16:24 | PD.ID.CON ---
History of Present Illness Service ID Consult Requested By Reason for Consult Evaluation and Mment of Septic Shock, Post Obstructive Pneumonia, UTI. Primary Care Physician Pravin Calvillo MD Diagnoses: History of Present Illness is a 65 y/o CM who looks older than stated age. His PMHx is significant for COPD, pulmonary embolism, non-small cell lung cancer diagnosis adenocarcinoma along with the mediastinal mass status post chemotherapy as well as radiation therapy who follows with Dr. Rj Monteiro. Patient was recently admitted on July 08, 2016 for chest pain diagnosed with ST elevation PA status post PCI and DELMY by Dr. Crouch cardiology. Patient also was admitted between July 08 to August 31, 2016 and underwent evaluation with diagnosis of non-small cell adenoca lung cancer. At that time was noted to have a lung mass which was invading bilateral mainstem bronchi this was diagnosed to be adenocarcinoma non-small cell lung cancer. He had complete atelectasis of the right lung which required bronchoscopy 2. Patient also underwent chemoradiation therapy and the obstruction was resolved reportedly. With this background patient presents from the snf for fever, hypotension, and confusion. Reportedly patient was started on a antibiotic regimen for UTI prior to admission. He was found to be profoundly hypotensive, confused and was sent to [facility] emergency department. Patient was also noted to have diarrhea. Off note patient does have prior history of C. difficile infection in the past. Upon arrival in the emergency department patient's systolic blood pressure was in the 70s, rectal temperature of 100.4 and tachycardic with a heart rate of 100. Sepsis workup was initiated with blood cultures. X-ray and CT of the chest showed bilateral pleural effusions left greater than right associated with infiltrate or atelectasis. Patient received 3 L normal saline bolus in the emergency department and currently is on levo fed 20 mics. Patient also received stress dose steroids as he has COPD and was on prednisone for the same. Patient received Zosyn, cefepime, Flagyl and IV vancomycin in the emergency department. At the time of my evaluation patient is in the ICU currently on a nonrebreather, on levo fed, urine output okay. Patient has undergone several procedures so far during this admission which include placement of a left subclavian line, CT on left side with thoracentesis. From review of records it appears that patient may have had a left IJ line transiently which has now been removed. Patient also was found to have left- sided effusion and is thoracentesis was done and a chest tube is in place. He' s draining serosanguineous discharge from the chest tube which is at under waterseal drainage. Per review of records it appears that patient may have had a PICC line for chemotherapy infusion until Jul 2016 for chemotherapy. No h/o line infections. There currently is no PICC line or a port in place. Patient also has a chronic Noble indwelling that was present on admission but changed and UA obtained from new Noble catheter. Reportedly patient was on ciprofloxacin as well as Pyridium prior to presentation along with prednisone. Infectious disease is consulted for evaluation and management of septic shock, obstructive pneumonia and UTI. 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 Mediastinotomy mass History of pneumonia requiring bronchoscopy 2 Failure to thrive Hypercholesterolemia GERD Arthritis Immune compromised host. Past Surgical History Bronchoscopy 2 Appendectomy Inguinal hernia repair 2 Lung biopsy 2059 Colonoscopy 2011 Tonsillectomy Left-sided chest tube placement Left-sided thoracentesis. Reported Medications Reported Meds & Active Scripts Active Spiriva Handihaler (Tiotropium Inh) 18 Mcg Cap 18 Mcg INH DAILY 30 Days Ventolin Hfa 18 GM Inh (Albuterol Sulfate) 90 Mcg/Act Aer 2 Puff INH Q6H 30 Days Thera/Beta-Carotene (Multiple Vitamin) 1 Tab Tab 1 Tab PO DAILY 30 Days Zinc Sulfate 220 Mg Cap 220 Mg PO DAILY Vitamin B-1 (Thiamine HCl) 100 Mg Tab 100 Mg PO DAILY Lisinopril 5 Mg Tab 2.5 Mg PO DAILY Cardizem CD 24 HR (Diltiazem CD 24 HR) 180 Mg Caper 180 Mg PO DAILY Lipitor (Atorvastatin Calcium) 40 Mg Tab 40 Mg PO HS Atenolol 25 Mg Tab 12.5 Mg PO DAILY Vitamin C (Ascorbic Acid) 500 Mg Tab 500 Mg PO BID Reported Cipro (Ciprofloxacin HCl) 500 Mg Tab 500 Mg PO BID 7 Days Pyridium (Phenazopyridine HCl) 100 Mg Tab 100 Mg PO TID START:11/13/2016 Prosource Plus (Nutritional Supplements) 1 Liq Liq 30 Ml PO TID Lac-Hydrin (Lactic Acid (Ammonium Lactate)) 12% Lotn 1 Applic TOPICAL BID Apply to entire body excluding skin folds and web spaces Lovenox Inj (Enoxaparin Sodium) 100 Mg/Ml Syr 90 Mg SQ DAILY Remeron (Mirtazapine) 15 Mg Tab 15 Mg PO HS Ativan (Lorazepam) 0.5 Mg Tab 0.5 Mg PO Q8H PRN Ventolin Hfa 18 GM Inh (Albuterol Sulfate) 90 Mcg/Act Aer 2 Puff INH Q4H PRN Restoril (Temazepam) 15 Mg Cap 15 Mg PO HS Zofran (Ondansetron HCl) 8 Mg Tab 8 Mg PO Q8HR PRN Citroma Liq (Magnesium Citrate) 300 Ml Liq 300 Ml PO DAILY PRN Enema Disposable (Sodium Phosphates) 1 Veronica Veronica 1 Applic MI DAILY PRN Milk of Magnesia Liq (Magnesium Hydroxide) 400 Mg/5 Ml Susp 30 Ml PO DAILY PRN Prednisone 10 Mg Tab 10 Mg PO DAILY Melatonin 3 Mg Tab 3 Mg PO HS Magnesium Oxide 400 Mg Tab 400 Mg PO BID Albuterol Neb (Albuterol Sulfate) 2.5 Mg/3 Ml Neb 2.5 Mg NEB Q2HR PRN Albuterol Neb (Albuterol Sulfate) 2.5 Mg/3 Ml Neb 2.5 Mg NEB QID Tylenol (Acetaminophen) 325 Mg Tab 650 Mg PO Q4H PRN Plavix (Clopidogrel Bisulfate) 75 Mg Tab 75 Mg PO DAILY Folate (Folic Acid) 1 Mg Tab 1 Mg PO DAILY Dulcolax Supp (Bisacodyl) 10 Mg Supp 10 Mg RECTAL DAILY PRN Active Ordered Medications Current Medications Medications (Trade) Dose Ordered Sig/Elvia Route Start Time Stop Time Status Last Admin (NS 1000 ml Inj) 1,000 ml @ 150 mls/hr Q6H40M IV 11/12/16 10:57 11/12/16 11:34 (NS Flush) 2 ml UNSCH PRN IV FLUSH 11/12/16 11:00 (NS Flush) 2 ml BID IV FLUSH 11/12/16 21:00 (Tylenol) 650 mg Q6H PRN PO 11/12/16 12:00 (Protonix Inj) 40 mg DAILY IV 11/13/16 09:00 Miscellaneous Information 1 Q361D XX 11/12/16 11:00 (Chlorhexidine 2% Cloth) 3 pack Taper DAILY@04 TOP 11/13/16 04:00 11/09/17 03:59 (Chlorhexidine 2% Cloth) 3 pack UNSCH PRN TOP 11/12/16 11:00 (Spiriva Inh) 18 mcg DAILY INH 11/13/16 09:00 (Plavix) 75 mg DAILY PO 11/13/16 09:00 Hydrocortisone Sodium Succinate 100 mg 100 mg Q8HR IV PUSH 11/12/16 14:00 Heparin Sodium/ Dextrose 250 ml @ 0 mls/hr TITRATE IV 11/12/16 11:15 (Vancomycin Consult Pharmacy) 0 ml @ 0 mls/hr UNSCH OTHER 11/12/16 11:15 Albumin Human 25 gm 25 gm Q12H IV 11/12/16 12:00 11/13/16 11:59 Cefepime HCl 2000 mg/Sodium Chloride 100 ml @ 200 mls/hr Q8H IV 11/12/16 13:00 Metronidazole 100 ml @ 100 mls/hr Q8H IV 11/12/16 14:00 (Vancomycin Inj/ NS 250 ml Inj) 250 ml @ 250 mls/hr Q18H IV 11/13/16 06:00 Miscellaneous Information SPECIFIC LAB TO BE DRAWN:VA... ONCE ONCE XX 11/13/16 23:45 11/13/16 23:46 (Levophed-Dextrose Drip) 250 ml @ 0 mls/hr TITRATE IV 11/12/16 13:30 Terbutaline Sulfate 1 mg 1 mg UNSCH PRN SQ 11/12/16 13:30 (Pitressin Inj/ D5W 100 ml Inj) 100 ml @ 0 mls/hr Q0M IV 11/12/16 13:20 Family History Could not be obtained. Per review of records it appears that there is a family history of coronary artery disease and diabetes mellitus. Social History Prior to being placed at snf patient used to live at home with his . He is retired. He has a [id number] smoking history he quit approximately 6 months prior to this admission. He reportedly drinks 1-2 beers per day. No drugs. Physical Exam Vital Signs Vital Signs Date Time Temp Pulse Resp B/P Pulse Ox O2 Delivery O2 Flow Rate FiO2 11/12/16 16:13 100 Non-Rebreather 12.00 11/12/16 11:57 102 21 117/56 100 Non-Rebreather 100 11/12/16 11:00 98.4 104 17 104/59 98 Non-Rebreather 100 11/12/16 10:00 99.5 103 20 84/46 97 Non-Rebreather 100 11/12/16 09:30 105 21 87/49 98 Non-Rebreather 100 11/12/16 09:15 108 21 73/48 97 Non-Rebreather 100 11/12/16 09:01 100.4 107 22 72/44 100 Non-Rebreather 100 11/12/16 09:01 Non-Rebreather 100 11/12/16 09:01 100 11/12/16 09:01 T-piece 100 11/12/16 09:01 100.4 107 22 72/44 100 Physical Exam GENERAL: Thin built chronically ill appearing male who looks older stated age. SKIN: No generalized rash. But skin extremely fragile infuse of flare of his tape place. HEAD: Atraumatic. Normocephalic. No temporal or scalp tenderness. EYES: Pupils equal round and reactive. Extraocular motions intact. No scleral icterus. No injection or drainage. ENT: Nose without bleeding, purulent drainage or septal hematoma. Throat without erythema, tonsillar hypertrophy or exudate. Uvula midline. Airway patent. NECK: Trachea midline. Supple, nontender, no meningeal signs. CARDIOVASCULAR: Heart sounds audible. No murmur appreciated. RESPIRATORY: Breath sounds decreased left more than right. GASTROINTESTINAL: Abdomen soft, non-tender, nondistended. MUSCULOSKELETAL: Pressure ulcers noted on lower extremity as well as sacral region. No pedal edema. No joint effusions. NEUROLOGICAL: Sedated (received Ativan for procedures) Psych could not be assessed. IV line sites with no evidence of infection. Laboratory Laboratory Tests Test 11/12/16 11/12/16 11/12/16 11/12/16 09:35 09:45 09:57 13:12 White Blood Count 4.4 Red Blood Count 2.42 Hemoglobin 7.3 Hematocrit 22.2 Mean Corpuscular Volume 91.5 Mean Corpuscular Hemoglobin 30.1 Mean Corpuscular Hemoglobin 32.9 Concent Red Cell Distribution Width 19.8 Platelet Count 200 Mean Platelet Volume 7.5 Neutrophils (%) (Auto) 87.3 Lymphocytes (%) (Auto) 2.0 Monocytes (%) (Auto) 10.4 Eosinophils (%) (Auto) 0.2 Basophils (%) (Auto) 0.1 Neutrophils # (Auto) 3.9 Lymphocytes # (Auto) 0.1 Monocytes # (Auto) 0.5 Eosinophils # (Auto) 0.0 Basophils # (Auto) 0.0 CBC Comment AUTO DIFF Differential Total Cells 100 Counted Neutrophils % (Manual) 33 Band Neutrophils % 44 Lymphocytes % 4 Monocytes % 17 Neutrophils # (Manual) 3.5 Myelocytes 2 Differential Comment FINAL DIFF MANUAL Toxic Vacuolation PRESENT Platelet Estimate NORMAL Platelet Morphology Comment NORMAL Sodium Level 133 Potassium Level 3.8 Chloride Level 98 Carbon Dioxide Level 23.3 Anion Gap 12 Blood Urea Nitrogen 36 Creatinine 1.09 Estimat Glomerular Filtration 67 Rate Random Glucose 103 Calcium Level 7.4 Protein Corrected Calcium 8.8 Total Bilirubin 0.4 Aspartate Amino Transf 11 (AST/SGOT) Alanine Aminotransferase 11 (ALT/SGPT) Alkaline Phosphatase 76 Total Protein 4.7 Albumin 1.5 Lactic Acid Level 2.4 Urine Color YELLOW Urine Turbidity HAZY Urine pH 7.0 Urine Specific Nash 1.022 Urine Protein 100 Urine Glucose (UA) NEG Urine Ketones TRACE Urine Occult Blood MOD Urine Nitrite NEG Urine Bilirubin NEG Urine Urobilinogen 2.0 Urine Leukocyte Esterase MOD Urine RBC Urine WBC Urine WBC Clumps MANY Urine Squamous Epithelial 3 Cells Urine Transitional Epithelial 11 Cells Urine Amorphous Sediment MOD Urine Mucus FEW Microscopic Urinalysis Comment CATH-CULTURE IND Blood Gas Puncture Site LT RADIAL Blood Gas Patient Temperature 98.6 Blood Gas HCO3 20 Blood Gas Base Excess -2.2 Blood Gas Oxygen Saturation 95 Arterial Blood pH 7.54 Arterial Blood Partial 24 Pressure CO2 Arterial Blood Partial 101 Pressure O2 Arterial Blood Oxygen Content 9.7 Arterial Blood 1.7 Carboxyhemoglobin Arterial Blood Methemoglobin 1.2 Blood Gas Hemoglobin 7.1 Oxygen Delivery Device Non-Rebreathing Mask Blood Gas Liter Flow 15 Blood Gas Inspired Oxygen 100 Test 11/12/16 13:22 White Blood Count 5.0 Red Blood Count 2.26 Hemoglobin 6.8 Hematocrit 20.1 Mean Corpuscular Volume 89.0 Mean Corpuscular Hemoglobin 30.0 Mean Corpuscular Hemoglobin 33.8 Concent Red Cell Distribution Width 19.9 Platelet Count 210 Mean Platelet Volume 7.3 Prothrombin Time 11.2 Prothromb Time International 1.0 Ratio Activated Partial 37.3 Thromboplast Time Lactic Acid Level 1.4 Blood Type B NEGATIVE Antibody Screen NEGATIVE Crossmatch Leukocyte-Reduced Red Blood Cells Blood Bank Comment Date/Time Procedure Status Source Growth 11/12/16 15:17 Gram Stain Received Fluid Pleural Fluid Pending 11/12/16 15:17 Body Fluid Culture Received Fluid Pleural Fluid Pending 11/12/16 15:17 Fungal Smear Received Fluid Pleural Fluid Pending 11/12/16 15:17 Fungal Culture Received Fluid Pleural Fluid Pending 11/12/16 15:17 Acid Fast Stain Received Fluid Pleural Fluid Pending 11/12/16 15:17 Mycobacterial Culture Received Fluid Pleural Fluid Pending 11/12/16 09:57 Urine Culture Received Urine Clean Catch Pending 11/12/16 09:45 Aerobic Blood Culture Received Blood Peripheral Pending 11/12/16 09:45 Anaerobic Blood Culture Received Blood Peripheral Pending Result Diagram: 11/12/16 1322 11/12/16 0935 Imaging Last Impressions Chest X-Ray 11/12/16 0908 Signed Impressions: Service Date/Time: Saturday, November 12, 2016 09:30 - CONCLUSION: Left greater than right pleural effusions. Bilateral patchy parenchymal opacity in the right lung apex and left perihilar region. Prashant Valdez MD Chest CT 11/12/16 0000 Signed Impressions: Service Date/Time: Saturday, November 12, 2016 11:23 - CONCLUSION: 1. Bilateral pleural effusions left greater than right. Bilateral dependent parenchymal lung opacity indicating atelectasis. 2. Decrease in size of right hilar and mediastinal mass/enlarged lymph nodes. Prashant Valdez MD Assessment and Plan Assessment and Plan Septic shock present on admission. Catheter associated UTI present on admission.(Has a chronic indwelling catheter. Was being treated with ciprofloxacin on admission.) Possible postobstructive or aspiration pneumonia. Left-sided pleural effusion s/p thoracentesis and CT placement Left side. Studies pending likely related to cancer or hemothorax. Rule out Empyema. Acute anemia: Blood loss query GI versus other site. Acute respiratory failure. Mild abnormal LFTs: ? sepsis related Acute metabolic encephalopathy: Likely infection related. Immune compromised host. Non-small cell adenocarcinoma of the lung with obstruction and mediastinal mass. Recs: Follow ruiz cultures Will d.w when PICC line was removed and which side it was present. Pt recd chemo using a PICC line reportedly. Continue Vanco IV (target 15-20) for bacteremia Continue Cefepime IV Continue Flagyl IV for now.(follow if diarrhea, or abdominal pain: may need CT A /P in am or if change in clinical condition) One dose IV Genta pending cultures Follow cultures Follow thoracentesis studies. Follow clinically. Imaging reviewed by me. lopez BOALÑOS and : fluid c.w ? empyema on initial CT placement. Later fluid serosanguinous. No family in room. Noted pt is full code. Melba Michel MD Nov 12, 2016 16:24
[2016-11-12 16:53] LABS: TOTAL PROTEIN,PLEURAL FLUID 2.6 GM/DL
--- NOTE | 2016-11-12 16:57 | RADRPT ---
EXAM DATE/TIME: 11/12/2016 15:53 [facility] COMPARISON: CHEST SINGLE AP, November 12, 2016, 14:31. INDICATIONS : Central line placement. MEDICAL HISTORY : Sepsis. Hypertension Chronic obstructive pulmonary disease. SURGICAL HISTORY : Appendectomy. ENCOUNTER: Subsequent ACUITY: 1 day PAIN SCORE: Non-responsive. LOCATION: Bilateral chest FINDINGS: Left chest tube present without pneumothorax. Left central line in superior vena cava. Bilateral most ly basilar airspace disease and small effusions. No pneumothorax. CONCLUSION: 1. Placement of left central line tip in superior vena cava. Left chest tube without pneumothorax. De crease in left effusion since chest tube placement. Cj Crouch MD on November 12, 2016 at 16:55 Board Certified Radiologist. This report was verified electronically.
[2016-11-12] MEDS: NOREPINEPHRINE-DEXTROSE DRIP 250 ML IV SCH ×2 (16:58→18:48)
[2016-11-12] MEDS: metroNIDAZOLE 500 MG INJ 100 ML IV SCH (16:59)
[2016-11-12] MEDS: HYDROCORTISONE SOD SUCCINATE 100 MG VIAL IV PUSH SCH (16:59)
[2016-11-12] MEDS: ALBUMIN HUMAN 25% 25 GM/100 ML BAGP IV SCH (17:00)
[2016-11-12] MEDS ORDERED: GENTAMICIN 80 MG PREMIX 100 ML IV ONE (17:00)
[2016-11-12 17:06] LABS: PLEURAL FLUID LYMPHS 1 %
[2016-11-12] MEDS: HEPARIN-D5W INJ 250 ML IV SCH (17:43)
[2016-11-12] MEDS: CEFEPIME INJ 2,000 MG in SODIUM CHLORIDE 0.9% INJ 100 ML IV SCH ×2 (18:25→21:09)
[2016-11-12] MEDS ORDERED: CHLORHEXIDINE GLUCONATE 2 % 1 PACK (2 CLOTHS)(extra cloths) TOP PRN (18:30)
[2016-11-13] VITALS (21 sets, daily range): BP systolic 97–154; BP diastolic 61–94; PULSE 86–161; RESP 15–22; TEMP 95.7–98.4; O2SAT 94–100
[2016-11-13] MEDS: ALBUMIN HUMAN 25% 25 GM/100 ML BAGP IV SCH (00:59)
[2016-11-13] MEDS: metroNIDAZOLE 500 MG INJ 100 ML IV SCH ×4 (01:04→21:08)
[2016-11-13] MEDS: HYDROCORTISONE SOD SUCCINATE 100 MG VIAL IV PUSH SCH ×4 (01:07→21:06)
[2016-11-13 01:29] LABS: APTT (PATIENT) 103.6 SEC (24.3-30.1)
[2016-11-13] MEDS: RESP: ALBUTEROL 2.5 MG/IPRATROPIUM 0.5 MG NEB (SCH) NEB ×4 (03:26→21:23)
[2016-11-13] MEDS ORDERED: CHLORHEXIDINE GLUCONATE 2 % 1 PACK (2 CLOTHS) TOP SCH (04:00)
[2016-11-13] MEDS: CHLORHEXIDINE GLUCONATE 2 % 1 PACK (2 CLOTHS)(taper/protocol) TOP SCH (04:00)
[2016-11-13 04:43] LABS: AUTOMATED NEUTROPHIL # 5.9 TH/MM3 (1.8-7.7); BASOPHIL % 0.2 % (0.0-2.0); EOSINOPHIL % 0.1 % (0.0-4.0); HEMATOCRIT 22.6 % (39.0-51.0); LYMPH % 1.3 % (9.0-44.0); LYMPHOCYTE # 0.1 TH/MM3 (1.0-4.8); MEAN CELL VOLUME 89.3 FL (80.0-100.0); MEAN CORPUSCULAR HEMOGLOBIN 30.1 PG (27.0-34.0); MEAN CORPUSCULAR HGB CONC 33.7 % (32.0-36.0); MONO % 4.8 % (0.0-8.0); NEUT % 93.6 % (16.0-70.0); PLATELET COUNT 183 TH/MM3 (150-450); RED BLOOD COUNT 2.53 MIL/MM3 (4.50-5.90); WHITE BLOOD COUNT 6.3 TH/MM3 (4.0-11.0)
[2016-11-13 04:52] LABS: APTT (PATIENT) 82.6 SEC (24.3-30.1)
[2016-11-13 04:55] LABS: HEMO FLAGS AUTO DIFF
[2016-11-13] MEDS: CEFEPIME INJ 2,000 MG in SODIUM CHLORIDE 0.9% INJ 100 ML IV SCH ×3 (04:59→21:08)
[2016-11-13 05:21] LABS: CALCIUM-PROTEIN CORRECTED 8.2 MG/DL (8.5-10.1); TOTAL BILIRUBIN ADULT 0.5 MG/DL (0.2-1.0)
[2016-11-13 05:30] LABS: POTASSIUM 2.7 MEQ/L (3.5-5.1)
[2016-11-13] MEDS: SODIUM CHLOR 0.9% 1000 ML INJ 1,000 ML IV SCH ×2 (06:27→09:07)
[2016-11-13] MEDS: SODIUM CHLORIDE 0.9% FLUSH 5 ML FLUSH IV FLUSH SCH ×3 (06:27→21:09)
[2016-11-13 07:49] LABS: BANDS 37 % (0-6); MYELOCYTES 2 % (0-0); NEUTROPHIL # MANUAL DIFF 6.1 TH/MM3 (1.8-7.7); OVALOCYTES 1+ (NORMAL); PLATELET ESTIMATE SMEAR NORMAL (NORMAL); PLATELET MORPHOLOGY NORMAL (NORMAL); POLYS (SEG NEUTROPHILS) 58 % (16-70); TOXIC GRANULATION 2+ (NORMAL); WBC DIFF SAMPLE 100
[2016-11-13 07:50] LABS: SCAN/DIFF FINAL DIFF MANUAL
[2016-11-13] MEDS: TIOTROPIUM BROMIDE 18 MCG INH INH SCH (09:00)
[2016-11-13] MEDS: CLOPIDOGREL 75 MG TAB PO SCH (09:00)
[2016-11-13] MEDS: PANTOPRAZOLE SODIUM 40 MG VIAL IV SCH (09:07)
[2016-11-13] MEDS ORDERED: MAGNESIUM OXIDE 400 MG TAB PO PRN (09:45)
[2016-11-13] MEDS ORDERED: MAGNESIUM SULFATE INJ 4 GM in SODIUM CHLORIDE 0.9% INJ 92 ML IV PRN (09:45)
[2016-11-13] MEDS ORDERED: POTASSIUM PHOSPHATE MONOBASIC 500 MG TAB PO PRN (09:45)
[2016-11-13] MEDS ORDERED: POTASSIUM CHLOR 40 MEQ PREMIX 100 ML IV PRN (09:45)
[2016-11-13] MEDS ORDERED: POTASSIUM CL 40 MEQ/30 ML LIQ UDC PO/TUBE PRN ×2 (09:45)
[2016-11-13] MEDS ORDERED: POTASSIUM PHOSPHATE INJ 30 MMOL in SODIUM CHLOR 0.9% 250 ML INJ 250 ML IV PRN (09:45)
[2016-11-13] MEDS ORDERED: POTASSIUM PHOSPHATE MONOBASIC 500 MG TAB PO/TUBE PRN (09:45)
[2016-11-13] MEDS: POTASSIUM CHLOR 40 MEQ PREMIX 100 ML IV PRN (10:10)
[2016-11-13] MEDS: VASOPRESSIN INJ 40 UNITS in DEXTROSE 5% IN WATER 100ML INJ 98 ML IV SCH ×2 (10:10)
[2016-11-13] MEDS ORDERED: GLUCAGON 1 MG/ML VIAL OTHER PRN (10:15)
[2016-11-13] MEDS: INSULIN NovoLIN REGULAR SUPPLEMENTAL SCALE SQ SCH ×3 (10:15→22:15)
[2016-11-13] MEDS ORDERED: DEXTROSE 50% IN WATER 50 ML VIAL(D50) IV PUSH PRN (10:15)
--- NOTE | 2016-11-13 10:17 | HHI.CCPN ---
Subjective Remarks/Hospital Course This is a 64-year-old male with history of COPD, hypertension, coronary artery disease, STEMI on 07/08/16 s/p PCI and DELMY (Dr. Crouch), history of C. difficile colitis, non-small cell lung cancer receiving chemoradiation per Dr. Monteiro, history of pulmonary embolism on Lovenox who was admitted to hospital recently from 07/08-08/31/16 with above diagnoses. During that admission he was noted to have a mediastinal and lung mass which was invading bilateral mainstem bronchi- subsequently diagnosed as a non-small cell lung cancer(adenocarcinoma). He had complete atelectasis of the right lung last admission which required bronchoscopy 2. With chemoradiation obstruction improved with resolution of atelectasis. [facility] for fever, hypotension, confusion. Apparently patient was to be started on antibiotics for a UTI however prior to starting the antibiotics, he was found to be profoundly hypotensive, confused and was sent to ER. The patient also was noted to have diarrhea. His initial systolic blood pressure was in the 70s, rectal temperature of 100.4 and also tachycardic with a heart rate in 100's. Source of infection seems to be UTI, though HCAP cannot be ruled out. X-ray and CT of the chest shows bilateral pleural effusions left larger than right associated with infiltrate/atelectasis. He has multiple skin ulcers including his sacral area and his bilateral ankles. Patient received 3 L normal saline bolus with improvement in blood pressure. Levophed ordered. I have started patient on stress dose steroids as he was receiving prednisone at the [facility] . Patient received Zosyn in the ED. I will place patient on cefepime, Flagyl (hx of C Diff) and IV vancomycin. Infectious disease consulted for septic shock in an immunocompromised patient. 11/13 Patient is on 35% VM, afebrile. Off Levophed Objective Vital Signs Date Time Temp Pulse Resp B/P Pulse Ox O2 Delivery O2 Flow Rate FiO2 11/13/16 09:28 94 Venturi Mask 35 11/13/16 09:00 92 16 146/92 11/13/16 08:00 95.7 Intake and Output 11/12/16 11/12/16 11/13/16 08:00 16:00 00:00 Intake Total 2472 ml 1428 ml Output Total 200 ml 500 ml Balance 2272 ml 928 ml Result Diagram: 11/13/16 0430 11/13/16 0430 Other Results Laboratory Tests Test 11/12/16 11/12/16 11/12/16 11/12/16 13:12 13:22 15:17 18:36 Blood Gas Puncture Site LT RADIAL Blood Gas Patient Temperature 98.6 Blood Gas HCO3 20 mmol/L Blood Gas Base Excess -2.2 mmol/L Blood Gas Oxygen Saturation 95 % Arterial Blood pH 7.54 Arterial Blood Partial 24 mmHg Pressure CO2 Arterial Blood Partial 101 mmHg Pressure O2 Arterial Blood Oxygen Content 9.7 Vol % Arterial Blood 1.7 % Carboxyhemoglobin Arterial Blood Methemoglobin 1.2 % Blood Gas Hemoglobin 7.1 G/DL Oxygen Delivery Device Non-Rebreathing Mask Blood Gas Liter Flow 15 L/M Blood Gas Inspired Oxygen 100 % White Blood Count 5.0 TH/MM3 Red Blood Count 2.26 MIL/MM3 Hemoglobin 6.8 GM/DL Hematocrit 20.1 % Mean Corpuscular Volume 89.0 FL Mean Corpuscular Hemoglobin 30.0 PG Mean Corpuscular Hemoglobin 33.8 % Concent Red Cell Distribution Width 19.9 % Platelet Count 210 TH/MM3 Mean Platelet Volume 7.3 FL Prothrombin Time 11.2 SEC Prothromb Time International 1.0 RATIO Ratio Activated Partial 37.3 SEC 63.0 SEC Thromboplast Time Lactic Acid Level 1.4 mmol/L Blood Type B NEGATIVE Antibody Screen NEGATIVE Crossmatch Leukocyte-Reduced Red Blood Cells Blood Bank Comment Pleural Fluid pH 8.0 Pleural Fluid WBC 1380 /MM3 Pleural Fluid RBC 1826 /MM3 Pleural Fluid Neutrophils 95 % Pleural Fluid Lymphocytes 1 % Pleural Fluid Monocytes 2 % Pleural Fluid Histiocytes 2 % Pleural Fluid Total Protein 2.6 GM/DL Pleural Fluid LDH 3550 U/L Pleural Fluid Glucose 40 MG/DL Pleural Fluid Amylase 10 U/L Test 11/13/16 11/13/16 00:45 04:30 Activated Partial 103.6 SEC 82.6 SEC Thromboplast Time White Blood Count 6.3 TH/MM3 Red Blood Count 2.53 MIL/MM3 Hemoglobin 7.6 GM/DL Hematocrit 22.6 % Mean Corpuscular Volume 89.3 FL Mean Corpuscular Hemoglobin 30.1 PG Mean Corpuscular Hemoglobin 33.7 % Concent Red Cell Distribution Width 18.0 % Platelet Count 183 TH/MM3 Mean Platelet Volume 6.6 FL Neutrophils (%) (Auto) 93.6 % Lymphocytes (%) (Auto) 1.3 % Monocytes (%) (Auto) 4.8 % Eosinophils (%) (Auto) 0.1 % Basophils (%) (Auto) 0.2 % Neutrophils # (Auto) 5.9 TH/MM3 Lymphocytes # (Auto) 0.1 TH/MM3 Monocytes # (Auto) 0.3 TH/MM3 Eosinophils # (Auto) 0.0 TH/MM3 Basophils # (Auto) 0.0 TH/MM3 CBC Comment AUTO DIFF Differential Total Cells 100 Counted Neutrophils % (Manual) 58 % Band Neutrophils % 37 % Lymphocytes % 1 % Monocytes % 2 % Neutrophils # (Manual) 6.1 TH/MM3 Myelocytes 2 % Differential Comment FINAL DIFF MANUAL Toxic Granulation 2+ Platelet Estimate NORMAL Platelet Morphology Comment NORMAL Ovalocytes 1+ Sodium Level 136 MEQ/L Potassium Level 2.7 MEQ/L Chloride Level 104 MEQ/L Carbon Dioxide Level 20.0 MEQ/L Anion Gap 12 MEQ/L Blood Urea Nitrogen 25 MG/DL Creatinine 0.38 MG/DL Estimat Glomerular Filtration 228 ML/MIN Rate Random Glucose 186 MG/DL Calcium Level 6.9 MG/DL Protein Corrected Calcium 8.2 MG/DL Total Bilirubin 0.5 MG/DL Aspartate Amino Transf 7 U/L (AST/SGOT) Alanine Aminotransferase 10 U/L (ALT/SGPT) Alkaline Phosphatase 68 U/L Total Protein 4.7 GM/DL Albumin 2.0 GM/DL Imaging Last Impressions Chest X-Ray 11/12/16 0908 Signed Impressions: Service Date/Time: Saturday, November 12, 2016 09:30 - CONCLUSION: Left greater than right pleural effusions. Bilateral patchy parenchymal opacity in the right lung apex and left perihilar region. Prashant Valdez MD Chest CT 11/12/16 0000 Signed Impressions: Service Date/Time: Saturday, November 12, 2016 11:23 - CONCLUSION: 1. Bilateral pleural effusions left greater than right. Bilateral dependent parenchymal lung opacity indicating atelectasis. 2. Decrease in size of right hilar and mediastinal mass/enlarged lymph nodes. Prashant Valdez MD Objective Remarks GENERAL: Elderly ill cachectic gentleman who appears pale, critically ill, lethargic SKIN: Warm and dry. HEAD: Atraumatic. Normocephalic. EYES: No scleral icterus. No injection or drainage. ENT: No nasal bleeding or discharge. Dry mucous membranes NECK: Trachea midline. No JVD. CARDIOVASCULAR: Tachycardic with regular rhythm. No murmur appreciated. RESPIRATORY: No accessory muscle use, diminished breath sound at bases. GASTROINTESTINAL: Abdomen soft, cachectic, non-tender, nondistended. BACK/SKIN: The patient has stage I - II pressure sores on his presacral area and ankles. MUSCULOSKELETAL: Bilateral ankle pressure wounds. NEUROLOGICAL: Opens eyes on repeated requests. Moves all extremities A/P Assessment and Plan NEURO: Acute metabolic encephalopathy Previous CVA -Minimize sedation, watch neuro status closely RESP: Respiratory insufficiency Left more than right pleural effusion Possible HCAP COPD Adenocarcinoma of the lung -Wean FiO2 to keep saturation more than 90% -DuoNeb every 6 hours scheduled and when necessary -On chronic prednisone, on Solucortef 100mg IV Q8 -s/p CT placement 11/12 for left pleural effusion-monitor CT drainage. Exudative effusion per LDH criteria -Empiric antibiotics, follow up on culture -On chemoradiation per Dr. Monteiro CV: Hypotension -resolved Lactic acidosis Coronary artery disease Status post STEMI 07/08/16 with PCI/DELMY to D1 s/p Normal saline IV fluids 3L bolus Off Levophed monitor HR and BP keep MAP>65mmHg Continue Plavix Echo 08/15 EF 55-60% GI: Diarrhea History C. difficile colitis --Speech eval , diet per speech, IV Protonix : -Monitor renal function, I/O's, electrolytes replacement per protocol -D/c IVF. Will need K replacement today ID: Septic shock UTI Possible HCAP History of C. difficile colitis -Continue with abx per ID ( Vanco, Cefepime, Flagyl IV) -Follow up on blood urine and sputum cultures, check C-diff PCR -Check strep pneumonia and Legionella urinary Ag HEME: Non-small cell lung cancer Pulmonary embolism diagnosed on 07/08/16 -Monitor CBC -Had been started on chemoradiation therapy Dr. Monteiro -Consult heme onc and pulmonary once hemodynamically more stable ENDO: -Electrolyte replacement protocol, sliding scale insulin for glycemic control PROPH: -Bilateral lower extremity SCDs. IV heparin, IV Protonix LINES: -Utilize peripheral IVs, Left subclavian CVP placed 11/12 level 3 Jimmy Fernandes MD Nov 13, 2016 10:17
[2016-11-13] MEDS: VANCOMYCIN 1,000 MG/NS 250 ML IV SCH ×2 (11:32)
[2016-11-13 11:39] LABS: APTT (PATIENT) 99.4 SEC (24.3-30.1)
--- NOTE | 2016-11-13 14:13 | HHI.IDPN ---
Subjective Subjective Remarks is a 65 y/o CM who looks older than stated age. His PMHx is significant for COPD, pulmonary embolism, non-small cell lung cancer diagnosis adenocarcinoma along with the mediastinal mass status post chemotherapy as well as radiation therapy who follows with Dr. Rj Monteiro. Patient was recently admitted on July 08, 2016 for chest pain diagnosed with ST elevation MD status post PCI and DELMY by Dr. Crouch cardiology. Patient also was admitted between July 08 to August 31, 2016 and underwent evaluation with diagnosis of non-small cell adenoca lung cancer. At that time was noted to have a lung mass which was invading bilateral mainstem bronchi this was diagnosed to be adenocarcinoma non-small cell lung cancer. He had complete atelectasis of the right lung which required bronchoscopy 2. Patient also underwent chemoradiation therapy and the obstruction was resolved reportedly. Overnight events reviewed No fever No rash No diarrhea More alert, responds appropriately. Antibiotics Cefepime IV Vanco IV Flagyl IV Lines Line sites with no e/o infection Past Medical History reviewed Allergies: Coded Allergies: No Known Allergies (Unverified , 07/08/16) Objective . Vital Signs Date Time Temp Pulse Resp B/P Pulse Ox O2 Delivery O2 Flow Rate FiO2 11/13/16 13:00 96.9 100 21 111/65 98 11/13/16 12:00 100 11/13/16 12:00 96.9 100 21 111/65 98 11/13/16 12:00 98 Nasal Cannula 3.00 11/13/16 11:00 96.6 106 15 111/73 95 11/13/16 10:00 103 11/13/16 10:00 95.9 100 17 127/65 98 11/13/16 09:28 94 Venturi Mask 35 11/13/16 09:00 92 16 146/92 97 11/13/16 08:00 97 Venturi Mask 35 11/13/16 08:00 95.7 86 15 133/77 98 11/13/16 08:00 87 11/13/16 07:00 88 18 124/73 99 11/13/16 06:00 101 11/13/16 04:00 98.4 97 18 137/82 98 11/13/16 04:00 93 11/13/16 04:00 94 Venturi Mask 40 11/13/16 03:27 Venturi Mask 31 11/13/16 02:00 91 11/13/16 00:00 91 11/13/16 00:00 97.0 106 16 154/94 96 11/13/16 00:00 Simple Mask 7.00 50 11/12/16 22:00 104 11/12/16 20:00 97.0 109 18 97/55 99 11/12/16 20:00 98 Simple Mask 7.00 11/12/16 20:00 108 11/12/16 19:31 99 Simple Mask 7.00 11/12/16 18:00 97.6 110 19 114/65 100 11/12/16 18:00 110 11/12/16 17:00 98.0 121 19 91/55 99 11/12/16 16:13 100 Non-Rebreather 12.00 11/12/16 16:00 98.0 128 17 102/56 93 11/12/16 16:00 93 Simple Mask 7.00 11/12/16 16:00 128 11/12/16 15:00 117 21 88/54 100 11/12/16 11/12/16 11/13/16 15:00 23:00 07:00 Intake Total 2472 ml 1428 ml 1661 ml Output Total 200 ml 500 ml 450 ml Balance 2272 ml 928 ml 1211 ml Intake IV Total 2147 ml 1428 ml 1661 ml Packed Cells 325 ml Output Urine Total 200 ml 250 ml 400 ml Chest Tube Drainage Total 250 ml 50 ml # Bowel Movements 3 . Laboratory Tests Test 11/12/16 11/12/16 11/13/16 09:35 13:22 04:30 White Blood Count 4.4 TH/MM3 5.0 TH/MM3 6.3 TH/MM3 Red Blood Count 2.42 MIL/MM3 2.26 MIL/MM3 2.53 MIL/MM3 Hemoglobin 7.3 GM/DL 6.8 GM/DL 7.6 GM/DL Hematocrit 22.2 % 20.1 % 22.6 % Mean Corpuscular Volume 91.5 FL 89.0 FL 89.3 FL Mean Corpuscular Hemoglobin 30.1 PG 30.0 PG 30.1 PG Mean Corpuscular Hemoglobin 32.9 % 33.8 % 33.7 % Concent Red Cell Distribution Width 19.8 % 19.9 % 18.0 % Platelet Count 200 TH/MM3 210 TH/MM3 183 TH/MM3 Mean Platelet Volume 7.5 FL 7.3 FL 6.6 FL Neutrophils (%) (Auto) 87.3 % 93.6 % Lymphocytes (%) (Auto) 2.0 % 1.3 % Monocytes (%) (Auto) 10.4 % 4.8 % Eosinophils (%) (Auto) 0.2 % 0.1 % Basophils (%) (Auto) 0.1 % 0.2 % Neutrophils # (Auto) 3.9 TH/MM3 5.9 TH/MM3 Lymphocytes # (Auto) 0.1 TH/MM3 0.1 TH/MM3 Monocytes # (Auto) 0.5 TH/MM3 0.3 TH/MM3 Eosinophils # (Auto) 0.0 TH/MM3 0.0 TH/MM3 Basophils # (Auto) 0.0 TH/MM3 0.0 TH/MM3 CBC Comment AUTO DIFF AUTO DIFF Differential Total Cells 100 100 Counted Neutrophils % (Manual) 33 % 58 % Band Neutrophils % 44 % 37 % Lymphocytes % 4 % 1 % Monocytes % 17 % 2 % Neutrophils # (Manual) 3.5 TH/MM3 6.1 TH/MM3 Myelocytes 2 % 2 % Differential Comment FINAL DIFF FINAL DIFF MANUAL MANUAL Toxic Vacuolation PRESENT Platelet Estimate NORMAL NORMAL Platelet Morphology Comment NORMAL NORMAL Toxic Granulation 2+ Ovalocytes 1+ Laboratory Tests Test 11/12/16 11/12/16 11/12/16 11/13/16 09:35 09:45 13:22 04:30 Sodium Level 133 MEQ/L 136 MEQ/L Potassium Level 3.8 MEQ/L 2.7 MEQ/L Chloride Level 98 MEQ/L 104 MEQ/L Carbon Dioxide Level 23.3 MEQ/L 20.0 MEQ/L Anion Gap 12 MEQ/L 12 MEQ/L Blood Urea Nitrogen 36 MG/DL 25 MG/DL Creatinine 1.09 MG/DL 0.38 MG/DL Estimat Glomerular Filtration 67 ML/MIN 228 ML/MIN Rate Random Glucose 103 MG/DL 186 MG/DL Calcium Level 7.4 MG/DL 6.9 MG/DL Protein Corrected Calcium 8.8 MG/DL 8.2 MG/DL Total Bilirubin 0.4 MG/DL 0.5 MG/DL Aspartate Amino Transf 11 U/L 7 U/L (AST/SGOT) Alanine Aminotransferase 11 U/L 10 U/L (ALT/SGPT) Alkaline Phosphatase 76 U/L 68 U/L Total Protein 4.7 GM/DL 4.7 GM/DL Albumin 1.5 GM/DL 2.0 GM/DL Lactic Acid Level 2.4 mmol/L 1.4 mmol/L Phosphorus Level 2.4 MG/DL Microbiology Date/Time Procedure Status Source Growth 11/12/16 09:35 Aerobic Blood Culture - Preliminary Resulted Blood Peripheral NO GROWTH IN 1 DAY 11/12/16 09:35 Anaerobic Blood Culture - Preliminary Resulted Staphylococcus Aureus 11/12/16 09:45 Aerobic Blood Culture - Preliminary Resulted Blood Peripheral Gram Positive Cocci 11/12/16 09:45 Anaerobic Blood Culture - Preliminary Resulted Gram Positive Cocci 11/12/16 09:57 Urine Culture - Preliminary Resulted Urine Clean Catch Gram Negative Tony Staphylococcus Species 11/12/16 15:17 Gram Stain - Final Resulted Fluid Pleural Fluid 11/12/16 15:17 Body Fluid Culture - Preliminary Resulted Fluid Pleural Fluid NO GROWTH IN 24 HOURS. 11/12/16 15:17 Acid Fast Stain Received Fluid Pleural Fluid Pending 11/12/16 15:17 Mycobacterial Culture Received Fluid Pleural Fluid Pending 11/12/16 15:17 Fungal Smear - Final Resulted Fluid Pleural Fluid NO FUNGAL ELEMENTS SEEN. 11/12/16 15:17 Fungal Culture Resulted Fluid Pleural Fluid Pending 11/13/16 09:18 Legionella Antigen - Final Complete Urine Catheterized Urine PRESUMPTIVE NEGATIVE FOR LEGIONELLA P... 11/13/16 09:18 Streptococcus pneumoniae Antigen (M - Final Complete Urine Catheterized Urine PRESUMPTIVE NEGATIVE FOR STREPTOCOCCU... Imaging Last Impressions Chest X-Ray 11/12/16 0908 Signed Impressions: Service Date/Time: Saturday, November 12, 2016 09:30 - CONCLUSION: Left greater than right pleural effusions. Bilateral patchy parenchymal opacity in the right lung apex and left perihilar region. Prashant Valdez MD Chest CT 11/12/16 0000 Signed Impressions: Service Date/Time: Saturday, November 12, 2016 11:23 - CONCLUSION: 1. Bilateral pleural effusions left greater than right. Bilateral dependent parenchymal lung opacity indicating atelectasis. 2. Decrease in size of right hilar and mediastinal mass/enlarged lymph nodes. Prashant Valdez MD Physical Exam GENERAL: Thin built chronically ill appearing male who looks older stated age. SKIN: No generalized rash. But skin extremely fragile infuse of flare of his tape place. HEAD: Atraumatic. Normocephalic. No temporal or scalp tenderness. EYES: Pupils equal round and reactive. Extraocular motions intact. No scleral icterus. No injection or drainage. ENT: Nose without bleeding, purulent drainage or septal hematoma. Throat without erythema, tonsillar hypertrophy or exudate. Uvula midline. Airway patent. NECK: Trachea midline. Supple, nontender, no meningeal signs. CARDIOVASCULAR: Heart sounds audible. No murmur appreciated. RESPIRATORY: Breath sounds decreased left more than right. GASTROINTESTINAL: Abdomen soft, non-tender, nondistended. MUSCULOSKELETAL: Pressure ulcers noted on lower extremity as well as sacral region. No pedal edema. No joint effusions. NEUROLOGICAL: Sedated (received Ativan for procedures) Psych could not be assessed. IV line sites with no evidence of infection. Assessment & Plan Remarks Septic shock present on admission. MSSA bacteremia Catheter associated UTI present on admission.(Has a chronic indwelling catheter. Was being treated with ciprofloxacin on admission.) Gram negative UTI infection Possible postobstructive or aspiration pneumonia. Left-sided pleural effusion s/p thoracentesis and CT placement Left side. Studies pending likely related to cancer or hemothorax. Rule out Empyema. Acute anemia: Blood loss query GI versus other site. Acute respiratory failure. Mild abnormal LFTs: ? sepsis related Acute metabolic encephalopathy: Likely infection related. Immune compromised host. Non-small cell adenocarcinoma of the lung with obstruction and mediastinal mass. Recs: Follow ruiz cultures Continue Vanco IV (target 15-20) for bacteremia Continue Cefepime IV Continue Flagyl IV ok to change to oral when able to tolerate oral. Follow cultures Follow thoracentesis studies. Follow clinically. No family in room. Noted pt is full code. Melba Michel MD Nov 13, 2016 14:13
--- NOTE | 2016-11-13 14:42 | EKG ---
Date Performed: 11/12/2016 Time Performed: 09:21:57 PTAGE: 65 years EKG: SINUS TACHYCARDIA ABNORMAL RHYTHM ECG PREVIOUS TRACING : 08/14/2016 10.59 DOCTOR: Chao Phillips Interpretating Date/Time 11/13/2016 14:36:00
[2016-11-13 18:05] LABS: APTT (PATIENT) 49.4 SEC (24.3-30.1)
[2016-11-13] MEDS: HEPARIN-D5W INJ 250 ML IV SCH (21:05)
[2016-11-13] MEDS: ACETAMINOPHEN 325 MG TAB PO PRN (21:07)
[2016-11-13] MEDS ORDERED: METOPROLOL TARTRATE 5 MG/5 ML VIAL IV PUSH ONE (22:45)
[2016-11-13] MEDS ORDERED: MORPHINE SULFATE 4 MG/ML INJ IM ONE (22:45)
--- NOTE | 2016-11-13 23:14 | RADRPT ---
EXAM DATE/TIME: 11/13/2016 22:42 [facility] COMPARISON: CHEST SINGLE AP, November 12, 2016, 15:53. INDICATIONS : Respiratory disease. MEDICAL HISTORY : Sepsis. Hypertension Chronic obstructive pulmonary disease. SURGICAL HISTORY : Appendectomy. ENCOUNTER: Subsequent ACUITY: 2 days PAIN SCORE: 0/10 LOCATION: Bilateral chest FINDINGS: There is a left chest tube in place without a pneumothorax. There is a left subclavian line in place with the tip overlying the SVC. There is increased density throughout the lungs especially the bases with silhouetting of the hemidiaphragms. The heart size is normal. CONCLUSION: Diffuse consolidation likely representing edema. Some degree or effusions needs to be considered. Sy Edwards MD on November 13, 2016 at 23:10 Board Certified Radiologist. This report was verified electronically.
[2016-11-14] VITALS (13 sets, daily range): BP systolic 89–120; BP diastolic 58–82; PULSE 102–144; RESP 18–22; TEMP 97.8–98.4; O2SAT 90–96
[2016-11-14] MEDS ORDERED: DILTIAZEM INJ 125 MG in SODIUM CHLORIDE 0.9% INJ 100 ML IV SCH (00:30)
[2016-11-14 01:05] LABS: MEAN CORPUSCULAR HEMOGLOBIN 29.7 PG (27.0-34.0); MEAN CORPUSCULAR HGB CONC 33.4 % (32.0-36.0); PLATELET COUNT 199 TH/MM3 (150-450); RED BLOOD COUNT 2.34 MIL/MM3 (4.50-5.90); RED CELL DISTRIBUTION WIDTH 18.7 % (11.6-17.2); WHITE BLOOD COUNT 13.7 TH/MM3 (4.0-11.0)
[2016-11-14 01:06] LABS: REVIEW FLAG FINAL
[2016-11-14 01:10] LABS: HEMATOCRIT 20.8 % (39.0-51.0)
[2016-11-14 01:10] LABS: APTT (PATIENT) 52.8 SEC (24.3-30.1)
[2016-11-14 01:18] LABS: POTASSIUM 3.5 MEQ/L (3.5-5.1)
[2016-11-14] MEDS: RESP: ALBUTEROL 2.5 MG/IPRATROPIUM 0.5 MG NEB (SCH) NEB ×4 (03:05→21:26)
[2016-11-14] MEDS: CHLORHEXIDINE GLUCONATE 2 % 1 PACK (2 CLOTHS)(taper/protocol) TOP SCH (04:00)
[2016-11-14] MEDS: INSULIN NovoLIN REGULAR SUPPLEMENTAL SCALE SQ SCH ×4 (04:15→23:06)
[2016-11-14] MEDS ORDERED: PHARMACY ORDERED LAB XX ONE (05:45)
[2016-11-14] MEDS: VANCOMYCIN 1,000 MG/NS 250 ML IV SCH ×2 (05:46)
[2016-11-14] MEDS: metroNIDAZOLE 500 MG INJ 100 ML IV SCH (05:46)
[2016-11-14] MEDS: HYDROCORTISONE SOD SUCCINATE 100 MG VIAL IV PUSH SCH ×3 (05:46→20:25)
[2016-11-14] MEDS: CEFEPIME INJ 2,000 MG in SODIUM CHLORIDE 0.9% INJ 100 ML IV SCH (05:46)
[2016-11-14 06:25] LABS: AUTOMATED NEUTROPHIL # 15.8 TH/MM3 (1.8-7.7); BASOPHIL % 0.1 % (0.0-2.0); HEMATOCRIT 24.5 % (39.0-51.0); LYMPHOCYTE # 0.2 TH/MM3 (1.0-4.8); MEAN CELL VOLUME 87.3 FL (80.0-100.0); MEAN CORPUSCULAR HGB CONC 33.2 % (32.0-36.0); MONO % 2.5 % (0.0-8.0); NEUT % 96.4 % (16.0-70.0); PLATELET COUNT 203 TH/MM3 (150-450); RED BLOOD COUNT 2.81 MIL/MM3 (4.50-5.90); RED CELL DISTRIBUTION WIDTH 18.7 % (11.6-17.2); WHITE BLOOD COUNT 16.4 TH/MM3 (4.0-11.0)
[2016-11-14 06:26] LABS: HEMO FLAGS AUTO DIFF
--- NOTE | 2016-11-14 06:26 | RADRPT ---
EXAM DATE/TIME: 11/14/2016 05:00 [facility] COMPARISON: CHEST SINGLE AP, November 13, 2016, 22:42. INDICATIONS : Respiratory distress. MEDICAL HISTORY : Sepsis. Hypertension Chronic obstructive pulmonary disease. SURGICAL HISTORY : Appendectomy. ENCOUNTER: Subsequent ACUITY: 3 days PAIN SCORE: Non-responsive. LOCATION: Bilateral chest FINDINGS: There is a left-sided chest tube in place. A pneumothorax is not seen. There is a left subclavian bharat e with the tip overlying the SVC. The heart size is normal. There is increased density throughout bot h lungs being worse at the bases. The silhouette of the hemidiaphragms. CONCLUSION: Diffuse increased density likely representing a combination of edema, bilateral effusions, and some d egree of consolidation and/or atelectasis at the mid and lower lungs. Sy Edwards MD on November 14, 2016 at 6:24 Board Certified Radiologist. This report was verified electronically.
[2016-11-14 06:40] LABS: APTT (PATIENT) 61.4 SEC (24.3-30.1)
[2016-11-14] MEDS ORDERED: BUMETANIDE INJ 1 MG/4 ML VIAL IV PUSH ONE (07:15)
[2016-11-14 07:18] LABS: BICARBONATE 19.2 MEQ/L (21.0-32.0); MAGNESIUM 1.5 MG/DL (1.5-2.5); POTASSIUM 3.2 MEQ/L (3.5-5.1)
--- NOTE | 2016-11-14 07:21 | HHI.CCPN ---
Subjective Remarks/Hospital Course This is a 64-year-old male with history of COPD, hypertension, coronary artery disease, STEMI on 07/08/16 s/p PCI and DELMY (Dr. Crouch), history of C. difficile colitis, non-small cell lung cancer receiving chemoradiation per Dr. Monteiro, history of pulmonary embolism on Lovenox who was admitted to hospital recently from 07/08-08/31/16 with above diagnoses. During that admission he was noted to have a mediastinal and lung mass which was invading bilateral mainstem bronchi- subsequently diagnosed as a non-small cell lung cancer(adenocarcinoma). He had complete atelectasis of the right lung last admission which required bronchoscopy 2. With chemoradiation obstruction improved with resolution of atelectasis. Today patient was brought from the sn[facility] for fever, hypotension, confusion. Apparently patient was to be started on antibiotics for a UTI however prior to starting the antibiotics, he was found to be profoundly hypotensive, confused and was sent to ER. The patient also was noted to have diarrhea. His initial systolic blood pressure was in the 70s, rectal temperature of 100.4 and also tachycardic with a heart rate in 100's. Source of infection seems to be UTI, though HCAP cannot be ruled out. X-ray and CT of the chest shows bilateral pleural effusions left larger than right associated with infiltrate/atelectasis. He has multiple skin ulcers including his sacral area and his bilateral ankles. Patient received 3 L normal saline bolus with improvement in blood pressure. Levophed ordered. I have started patient on stress dose steroids as he was receiving prednisone at the snf . Patient received Zosyn in the ED. I will place patient on cefepime, Flagyl (hx of C Diff) and IV vancomycin. Infectious disease consulted for septic shock in an immunocompromised patient. 11/13 Patient is on 35% VM, afebrile. Off Levophed 11/14 Patient was started on Cardizem drip 15mg/hr overnight in addition was given Lopressor 2.5mg IV x1 for tachycardia. Afebrile. On Heparin drip. s/p transfusion 1u PRBC for Hgb 6.9 now 8.1. Objective Vital Signs Date Time Temp Pulse Resp B/P Pulse Ox O2 Delivery O2 Flow Rate FiO2 11/13/16 22:00 150 11/13/16 21:22 94 Nasal Cannula 2.00 11/13/16 19:00 98.1 18 102/63 11/13/16 09:28 35 Intake and Output 11/13/16 11/13/16 11/14/16 08:00 16:00 00:00 Intake Total 1661 ml 1499 ml 647 ml Output Total 450 ml 345 ml 280 ml Balance 1211 ml 1154 ml 367 ml Result Diagram: 11/14/16 0550 11/13/16 0430 Other Results Laboratory Tests Test 11/13/16 11/13/16 11/13/16 11/14/16 09:10 14:58 16:30 00:15 Activated Partial 99.4 SEC 49.4 SEC 52.8 SEC Thromboplast Time Nasal Screen MRSA (PCR) NEGATIVE Test 11/14/16 11/14/16 11/14/16 00:35 02:52 05:50 White Blood Count 13.7 TH/MM3 16.4 TH/MM3 Red Blood Count 2.34 MIL/MM3 2.81 MIL/MM3 Hemoglobin 6.9 GM/DL 8.1 GM/DL Hematocrit 20.8 % 24.5 % Mean Corpuscular Volume 89.0 FL 87.3 FL Mean Corpuscular Hemoglobin 29.7 PG 29.0 PG Mean Corpuscular Hemoglobin 33.4 % 33.2 % Concent Red Cell Distribution Width 18.7 % 18.7 % Platelet Count 199 TH/MM3 203 TH/MM3 Mean Platelet Volume 7.2 FL 7.4 FL Blood Type B NEGATIVE Crossmatch Leukocyte-Reduced Red Blood Cells Blood Bank Comment Neutrophils (%) (Auto) 96.4 % Lymphocytes (%) (Auto) 1.0 % Monocytes (%) (Auto) 2.5 % Eosinophils (%) (Auto) 0.0 % Basophils (%) (Auto) 0.1 % Neutrophils # (Auto) 15.8 TH/MM3 Lymphocytes # (Auto) 0.2 TH/MM3 Monocytes # (Auto) 0.4 TH/MM3 Eosinophils # (Auto) 0.0 TH/MM3 Basophils # (Auto) 0.0 TH/MM3 CBC Comment AUTO DIFF Activated Partial 61.4 SEC Thromboplast Time Imaging Last Impressions Chest X-Ray 11/14/16 0600 Signed Impressions: Service Date/Time: Monday, November 14, 2016 05:00 - CONCLUSION: Diffuse increased density likely representing a combination of edema, bilateral effusions, and some degree of consolidation and/or atelectasis at the mid and lower lungs. Sy Edwards MD Chest CT 11/12/16 0000 Signed Impressions: Service Date/Time: Saturday, November 12, 2016 11:23 - CONCLUSION: 1. Bilateral pleural effusions left greater than right. Bilateral dependent parenchymal lung opacity indicating atelectasis. 2. Decrease in size of right hilar and mediastinal mass/enlarged lymph nodes. Prashant Valdez MD Objective Remarks GENERAL: Elderly ill cachectic gentleman who appears pale, critically ill, lethargic SKIN: Warm and dry. HEAD: Atraumatic. Normocephalic. EYES: No scleral icterus. No injection or drainage. ENT: No nasal bleeding or discharge. Dry mucous membranes NECK: Trachea midline. No JVD. CARDIOVASCULAR: Tachycardic with regular rhythm. No murmur appreciated. RESPIRATORY: No accessory muscle use, diminished breath sound at bases. GASTROINTESTINAL: Abdomen soft, cachectic, non-tender, nondistended. BACK/SKIN: The patient has stage I - II pressure sores on his presacral area and ankles. MUSCULOSKELETAL: Bilateral ankle pressure wounds. NEUROLOGICAL: Opens eyes on repeated requests. Moves all extremities A/P Assessment and Plan NEURO: Acute metabolic encephalopathy Previous CVA -Minimize sedation, monitor neuro status closely. Awake and alert RESP: Respiratory insufficiency Left more than right pleural effusion Possible HCAP COPD Adenocarcinoma of the lung -Wean FiO2 to keep saturation more than 90% -DuoNeb every 6 hours scheduled and when necessary -On chronic prednisone, on Solucortef 100mg IV Q8 -s/p CT placement 11/12 for left pleural effusion-monitor CT drainage. Exudative effusion per LDH criteria -On chemoradiation per Dr. Monteiro CV: Hypotension -resolved Lactic acidosis Coronary artery disease Status post STEMI 07/08/16 with PCI/DELMY to D1 s/p Normal saline IV fluids 3L bolus On Vasopressin monitor HR and BP keep MAP>65mmHg Wean off Cardizem drip, place on Lopressor 2.5mg IV Q6 Continue Plavix Echo 08/15 EF 55-60% GI: Diarrhea History C. difficile colitis --On full liquid diet advance as celeste. IV Protonix : -Monitor renal function, I/O's, electrolytes replacement per protocol -Diurese with Bumex 1mg x1 ID: Septic shock UTI Possible HCAP History of C. difficile colitis -Continue with abx per ID ( Rocephin, Cefazolin, Flagyl) -BC 11/12 : GPC, Staph Aureus -Urine cx 11/12: Proteus, staph species -Strep pneumonia and Legionella urinary Ag negative -Fluid cx 11/12: NGTD HEME: Non-small cell lung cancer Pulmonary embolism diagnosed on 07/08/16 -Monitor CBC, s/p transfusion 1u PRBC overnight. -Had been started on chemoradiation therapy Dr. Monteiro -Consult heme onc ENDO: -Electrolyte replacement protocol, sliding scale insulin for glycemic control PROPH: -Bilateral lower extremity SCDs. IV heparin, IV Protonix LINES: -Utilize peripheral IVs, Left subclavian CVP placed 11/12 level 3 Jimmy Fernandes MD Nov 14, 2016 07:21
[2016-11-14 07:42] LABS: CALCIUM-PROTEIN CORRECTED 8.5 MG/DL (8.5-10.1)
[2016-11-14] MEDS: METOPROLOL TARTRATE 5 MG/5 ML VIAL IV PUSH SCH ×5 (08:00→20:25)
[2016-11-14 08:02] LABS: BANDS 25 % (0-6); METAMYELOCYTES 1 % (0-1); NEUTROPHIL # MANUAL DIFF 15.6 TH/MM3 (1.8-7.7); POLYS (SEG NEUTROPHILS) 69 % (16-70); WBC DIFF SAMPLE 100
[2016-11-14 08:03] LABS: ACANTHOCYTES 1+ (NORMAL); PLATELET ESTIMATE SMEAR NORMAL (NORMAL); PLATELET MORPHOLOGY NORMAL (NORMAL)
[2016-11-14 08:04] LABS: HELMET CELLS OCC (NORMAL); KERATOCYTES OCC (NORMAL); SCAN/DIFF FINAL DIFF MANUAL; TOXIC GRANULATION 1+ (NORMAL)
[2016-11-14] MEDS: CLOPIDOGREL 75 MG TAB PO SCH (08:29)
[2016-11-14] MEDS: ceFAZolin 2 GM PREMIX 50 ML IV SCH ×3 (08:29→23:02)
[2016-11-14] MEDS: POTASSIUM CHLOR 40 MEQ PREMIX 100 ML IV PRN ×2 (08:29→10:54)
[2016-11-14] MEDS: PANTOPRAZOLE SODIUM 40 MG VIAL IV SCH (08:30)
[2016-11-14] MEDS: SODIUM CHLORIDE 0.9% FLUSH 5 ML FLUSH IV FLUSH SCH ×2 (08:30→20:25)
[2016-11-14] MEDS: TIOTROPIUM BROMIDE 18 MCG INH INH SCH (08:53)
[2016-11-14] MEDS ORDERED: LEVOFLOXACIN 500 MG TAB PO SCH (09:00)
--- NOTE | 2016-11-14 10:14 | MB ---
cc: ANNA KULKARNI MD DATE OF 12/14/1930 REASON FOR CONSULTATION Patient with a history of [id number] lung cancer who was admitted with hypotension and sepsis. HISTORY OF PRESENT ILLNESS Mr. Trujillo is a 55-year-old male who has a diagnosis of oan-vxcht-aqfo lung cancer with adenomyosis carcinoma histology. History was of EGFR, ALK fusion and ROS mutation negative. He has undergone concurrent chemotherapy and radiation. He receives cisplatin and Taxol. OTHER MEDICAL PROBLEMS 1. History of tobacco abuse. 2. COPD. 3. Hypertension. 4. Hyperlipidemia. 5. 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 6. Pulmonary embolism. He was brought to the emergency room with hypotension, confusion and fevers. He was found to have a UTI. The patient is currently admitted to the Intensive Care Unit and is on IV antibiotics. With respect to the history of his lung cancer, he was diagnosed with bulky mediastinal disease. Additionally, he had compression of his bronchus. There was some improvement of his tumor bulk with concurrent chemotherapy and radiation. He was recently seen in the clinic. The patient has been declining overall with respect to his performance status. He has been in a rehab facility. He is unable to ambulate. Based on most recent imaging, he has developed metastatic disease. However, imaging on this admission shows some improvement in mediastinal adenopathy. The right paratracheal node is also somewhat smaller. He was found to have bilateral pleural effusions, left greater than right. There was also parenchymal lung opacity with atelectasis concerning for pneumonia. Upon admission the patient received aggressive fluid resuscitation. He was started on vasopressors. He is currently on IV antibiotics including cefepime, Flagyl and IV vancomycin. The patient has improved overnight. He has a chest tube in place to drain his pleural effusion. He is awake and alert. He is currently on a nasal cannula with 4 liters of oxygen. His O2 sats are at 96%. He has been afebrile. Today his is at bedside and has numerous questions. REVIEW OF SYSTEMS A comprehensive 14-point review of systems was completed which is negative except as described in the HPI. PAST MEDICAL HISTORY 1. Non-small cell lung cancer with adenocarcinoma histology. 2. Hypertension. 3. Hyperlipidemia. 4. COPD. 5. Tobacco abuse. 6. History of CVA with residual left-sided weakness. 7. Peripheral vascular disease status post revascularization of the lower extremities. 8. History of coronary artery disease/NV, status post cardiac catheterization with PCI and drug eluding stent. PAST SURGICAL HISTORY 1. Appendectomy. 2. Inguinal hernia repair x 2. 3. Left heart catheterization with PCI. MEDICATIONS 1. Metoprolol 25 mg one tablet p.o. q.8 hours which has been stopped. 2. Spiriva 18 mcg INH daily. 3. Ventolin 18 grams INH. 4. Levaquin 750 mg one tablet p.o. daily. He was on this antibiotic prior to his admission. 5. Temazepam 15 mg one tablet p.o. q.h.s. 6. Prednisone 10 mg p.o. b.i.d. 7. Magnesium oxide 400 mg p.o. b.i.d. 8. Lisinopril 5 mg/2.5 one mg tablet p.o. daily which is on hold. 9. Lovenox injection 60 mg subcu q.12 hours. 10. Cardizem 180 mg one tablet p.o. daily on hold. 11. Lipitor 40 mg one tablet p.o. q.h.s. 12. Plavix 75 mg one tablet p.o. daily. INPATIENT MEDICATIONS 1. Vancomycin 1 gram IV q.18 hours. 2. Sliding-scale insulin oral thrush. 3. Flagyl 500 mg IV q.8 hours. 4. Cefepime 2 grams IV q.8 hours oral. 5. DuoNebs. ALLERGIES No known drug allergies. SOCIAL HISTORY He is currently in a rehab facility. He is . He has quit smoking but has more than 60 pack-years of smoking history. FAMILY HISTORY Reviewed. It is noncontributory to this admission. PHYSICAL EXAMINATION VITAL SIGNS: Blood pressure is 102/63, pulse is in the 100s, temperature is 98.1, O2 sats are 95% on nasal cannula which is now weaned down to 2 liters per minute. General: Acutely ill patient who is weak. HEENT: Pupils are equal, round, reactive to light. EOMI. No oral thrush. No oral lesions. NECK: Supple. No JVD, no bruits, no lymphadenopathy. CHEST: Bilateral rhonchi and wheezing, scattered. Left chest tube in place with serosanguineous output. There is approximately 800 cc of fluid in the container. Bilateral diminished breath sounds. ABDOMEN: Soft, nontender, nondistended. Bowel sounds are present. EXTREMITIES: Without any edema, erythema or cyanosis. SKIN: He has multiple bruises on his arms from IV sticks. The right arm is swollen. NEURO: No focal deficits. PSYCHIATRIC: Mood and affect is appropriate. LABORATORY DATA WBC is 6.3, hemoglobin is 7.6. On admission his hemoglobin was 7.3 and then dropped to 6.8. Platelet count is 183. Serum chemistries show sodium of 136, potassium of 2.7, chloride is 104, CO2 is 20, BUN is 25, creatinine is 0.38, calcium is 6.9, phosphorus is 2.4, total bilirubin is 0.5, AST 7, ALT 10, total protein is 4.7, albumin is 2. IMAGING STUDIES CT of the chest was reviewed. This shows bilateral pleural effusions, left greater than right. There is bilateral dependent parenchymal lung opacity. There is decrease in the size of the right hilar mediastinal mass and lymphadenopathy. ASSESSMENT AND PLAN This is a 65-year-old male with a past medical history of [id number] lung cancer with adenocarcinoma histology, history of COPD, tobacco abuse, hypertension, history of coronary artery disease/NV status post cardiac cath with PCI and drug-eluding stent, history of pulmonary embolism was on Lovenox. He presents to the emergency room with fevers, hypotension and confusion. 1. Sepsis with possible UTI and pneumonia/hypotension: I agree with aggressive resuscitation. The patient is currently on vasopressors. He is currently on IV antibiotics. Blood cultures are pending. Clinically he is doing better today with improvement in oxygenation. 2. Dvk-aczyt-imez lung cancer with adenocarcinoma histology. CT scan show improvement in mediastinal disease. However, he does have pleural effusions. We will follow up on his cytology. If the effusions are malignant, then he will have Stage IV disease. He has a very poor performance status. This will be a major factor in deciding his treatment in the future. He will need to substantially improve clinically. 3. Acute anemia. Hemoglobin of 7.6. Since he is hypotensive, I would recommend keeping his hemoglobin greater than 8. I will transfuse him an additional 1 unit of packed red blood cells. 4. Hypokalemia with potassium of 2.7. Replace potassium. 5. Hypophosphatemia. Replace phosphorus. 6. Malnutrition with an albumin of 2. Thank you for allowing me to participate in the care of this patient. I will continue to follow this patient along. MD PAUL Gordon/JOAQUÍN /10:43 PM /9:50 AM
--- NOTE | 2016-11-14 11:13 | HHI.IDPN ---
Subjective Subjective Remarks is a 65 y/o CM who looks older than stated age. His PMHx is significant for COPD, pulmonary embolism, non-small cell lung cancer diagnosis adenocarcinoma along with the mediastinal mass status post chemotherapy as well as radiation therapy who follows with Dr. Rj Monteiro. Patient was recently admitted on July 08, 2016 for chest pain diagnosed with ST elevation NH status post PCI and DELMY by Dr. Crouch cardiology. Patient also was admitted between July 08 to August 31, 2016 and underwent evaluation with diagnosis of non-small cell adenoca lung cancer. At that time was noted to have a lung mass which was invading bilateral mainstem bronchi this was diagnosed to be adenocarcinoma non-small cell lung cancer. He had complete atelectasis of the right lung which required bronchoscopy 2. Patient also underwent chemoradiation therapy and the obstruction was resolved reportedly. Overnight events reviewed No fever No rash No diarrhea More alert, interactive with family. Off Levophed On Vasopressin Antibiotics Cefepime IV Vanco IV Flagyl IV Lines Line sites with no e/o infection Past Medical History reviewed Allergies: Coded Allergies: No Known Allergies (Unverified , 07/08/16) Objective . Vital Signs Date Time Temp Pulse Resp B/P Pulse Ox O2 Delivery O2 Flow Rate FiO2 11/14/16 09:51 94 Nasal Cannula 2.00 11/14/16 08:00 102 11/14/16 08:00 93 Nasal Cannula 2.00 11/14/16 08:00 97.8 102 20 114/58 93 11/14/16 06:00 104 11/14/16 04:00 98.0 128 20 94/61 90 11/14/16 04:00 128 11/14/16 04:00 94 Nasal Cannula 2.00 11/14/16 00:00 93 Nasal Cannula 2.00 11/14/16 00:00 98.4 144 20 93/58 93 11/14/16 00:00 144 11/13/16 22:00 150 11/13/16 21:22 94 Nasal Cannula 2.00 11/13/16 20:00 93 Nasal Cannula 2.00 11/13/16 20:00 161 11/13/16 19:00 98.1 108 18 102/63 97 11/13/16 18:00 97.7 108 22 97/61 97 11/13/16 18:00 108 11/13/16 17:00 97.7 108 20 109/61 94 11/13/16 16:00 109 11/13/16 16:00 95 Nasal Cannula 2.00 11/13/16 16:00 97.7 109 18 102/66 95 11/13/16 15:00 97.3 108 22 98/63 100 11/13/16 14:00 97.3 103 22 103/62 100 11/13/16 14:00 103 11/13/16 13:00 96.9 100 21 111/65 98 11/13/16 12:00 100 11/13/16 12:00 96.9 100 21 111/65 98 11/13/16 12:00 98 Nasal Cannula 3.00 11/13/16 11/13/16 11/14/16 14:59 22:59 06:59 Intake Total 1499 ml 647 ml 741 ml Output Total 345 ml 280 ml 270 ml Balance 1154 ml 367 ml 471 ml Intake Oral 50 ml 100 ml 100 ml IV Total 1449 ml 547 ml 291 ml Packed Cells 350 ml Output Urine Total 315 ml 250 ml 250 ml Chest Tube Drainage Total 30 ml 30 ml 20 ml # Bowel Movements 0 . Laboratory Tests Test 11/12/16 11/13/16 11/14/16 11/14/16 13:22 04:30 00:35 05:50 White Blood Count 5.0 TH/MM3 6.3 TH/MM3 13.7 TH/MM3 16.4 TH/MM3 Red Blood Count 2.26 MIL/MM3 2.53 MIL/MM3 2.34 MIL/MM3 2.81 MIL/MM3 Hemoglobin 6.8 GM/DL 7.6 GM/DL 6.9 GM/DL 8.1 GM/DL Hematocrit 20.1 % 22.6 % 20.8 % 24.5 % Mean Corpuscular Volume 89.0 FL 89.3 FL 89.0 FL 87.3 FL Mean Corpuscular Hemoglobin 30.0 PG 30.1 PG 29.7 PG 29.0 PG Mean Corpuscular Hemoglobin 33.8 % 33.7 % 33.4 % 33.2 % Concent Red Cell Distribution Width 19.9 % 18.0 % 18.7 % 18.7 % Platelet Count 210 TH/MM3 183 TH/MM3 199 TH/MM3 203 TH/MM3 Mean Platelet Volume 7.3 FL 6.6 FL 7.2 FL 7.4 FL Neutrophils (%) (Auto) 93.6 % 96.4 % Lymphocytes (%) (Auto) 1.3 % 1.0 % Monocytes (%) (Auto) 4.8 % 2.5 % Eosinophils (%) (Auto) 0.1 % 0.0 % Basophils (%) (Auto) 0.2 % 0.1 % Neutrophils # (Auto) 5.9 TH/MM3 15.8 TH/MM3 Lymphocytes # (Auto) 0.1 TH/MM3 0.2 TH/MM3 Monocytes # (Auto) 0.3 TH/MM3 0.4 TH/MM3 Eosinophils # (Auto) 0.0 TH/MM3 0.0 TH/MM3 Basophils # (Auto) 0.0 TH/MM3 0.0 TH/MM3 CBC Comment AUTO DIFF AUTO DIFF Differential Total Cells 100 100 Counted Neutrophils % (Manual) 58 % 69 % Band Neutrophils % 37 % 25 % Lymphocytes % 1 % 1 % Monocytes % 2 % 4 % Neutrophils # (Manual) 6.1 TH/MM3 15.6 TH/MM3 Myelocytes 2 % Differential Comment FINAL DIFF FINAL DIFF MANUAL MANUAL Toxic Granulation 2+ 1+ Platelet Estimate NORMAL NORMAL Platelet Morphology Comment NORMAL NORMAL Ovalocytes 1+ Metamyelocytes 1 % Helmet Cells OCC Acanthocytes 1+ Keratocytes OCC Laboratory Tests Test 11/12/16 11/13/16 11/13/16 11/14/16 13:22 00:00 04:30 05:50 Lactic Acid Level 1.4 mmol/L Potassium Level 3.5 MEQ/L 2.7 MEQ/L 3.2 MEQ/L Phosphorus Level 2.3 MG/DL 2.4 MG/DL 2.7 MG/DL Sodium Level 136 MEQ/L 138 MEQ/L Chloride Level 104 MEQ/L 107 MEQ/L Carbon Dioxide Level 20.0 MEQ/L 19.2 MEQ/L Anion Gap 12 MEQ/L 12 MEQ/L Blood Urea Nitrogen 25 MG/DL 24 MG/DL Creatinine 0.38 MG/DL 0.41 MG/DL Estimat Glomerular Filtration 228 ML/MIN 209 ML/MIN Rate Random Glucose 186 MG/DL 158 MG/DL Calcium Level 6.9 MG/DL 7.2 MG/DL Protein Corrected Calcium 8.2 MG/DL 8.5 MG/DL Total Bilirubin 0.5 MG/DL Aspartate Amino Transf 7 U/L (AST/SGOT) Alanine Aminotransferase 10 U/L (ALT/SGPT) Alkaline Phosphatase 68 U/L Total Protein 4.7 GM/DL 4.8 GM/DL Albumin 2.0 GM/DL Magnesium Level 1.5 MG/DL Microbiology Date/Time Procedure Status Source Growth 11/12/16 09:35 Aerobic Blood Culture - Preliminary Resulted Blood Peripheral Staphylococcus Aureus 11/12/16 09:35 Anaerobic Blood Culture - Final Resulted Staphylococcus Aureus 11/12/16 09:45 Aerobic Blood Culture - Preliminary Resulted Blood Peripheral Staphylococcus Aureus 11/12/16 09:45 Anaerobic Blood Culture - Preliminary Resulted Staphylococcus Aureus 11/12/16 09:57 Urine Culture - Final Complete Urine Clean Catch Proteus Mirabilis Staphylococcus Aureus 11/12/16 15:17 Gram Stain - Final Resulted Fluid Pleural Fluid 11/12/16 15:17 Body Fluid Culture - Preliminary Resulted Fluid Pleural Fluid NO GROWTH IN 48 HOURS. 11/12/16 15:17 Acid Fast Stain Received Fluid Pleural Fluid Pending 11/12/16 15:17 Mycobacterial Culture Received Fluid Pleural Fluid Pending 11/12/16 15:17 Fungal Smear - Final Resulted Fluid Pleural Fluid NO FUNGAL ELEMENTS SEEN. 11/12/16 15:17 Fungal Culture Resulted Fluid Pleural Fluid Pending 11/13/16 09:18 Legionella Antigen - Final Complete Urine Catheterized Urine PRESUMPTIVE NEGATIVE FOR LEGIONELLA P... 11/13/16 09:18 Streptococcus pneumoniae Antigen (M - Final Complete Urine Catheterized Urine PRESUMPTIVE NEGATIVE FOR STREPTOCOCCU... 11/13/16 14:50 Aerobic Blood Culture Received Blood Peripheral Pending 11/13/16 14:50 Anaerobic Blood Culture Received Blood Peripheral Pending 11/13/16 14:58 Aerobic Blood Culture Received Blood Peripheral Pending 11/13/16 14:58 Anaerobic Blood Culture Received Blood Peripheral Pending Imaging Last Impressions Chest X-Ray 11/12/16 0908 Signed Impressions: Service Date/Time: Saturday, November 12, 2016 09:30 - CONCLUSION: Left greater than right pleural effusions. Bilateral patchy parenchymal opacity in the right lung apex and left perihilar region. Prashant Valdez MD Chest CT 11/12/16 0000 Signed Impressions: Service Date/Time: Saturday, November 12, 2016 11:23 - CONCLUSION: 1. Bilateral pleural effusions left greater than right. Bilateral dependent parenchymal lung opacity indicating atelectasis. 2. Decrease in size of right hilar and mediastinal mass/enlarged lymph nodes. Prashant Valdez MD Physical Exam GENERAL: Thin built chronically ill appearing male who looks older stated age. SKIN: No generalized rash. But skin extremely fragile infuse of flare of his tape place. HEAD: Atraumatic. Normocephalic. No temporal or scalp tenderness. EYES: Pupils equal round and reactive. Extraocular motions intact. No scleral icterus. No injection or drainage. ENT: Nose without bleeding, purulent drainage or septal hematoma. Throat without erythema, tonsillar hypertrophy or exudate. Uvula midline. Airway patent. NECK: Trachea midline. Supple, nontender, no meningeal signs. CARDIOVASCULAR: Heart sounds audible. No murmur appreciated. RESPIRATORY: Breath sounds decreased left more than right. GASTROINTESTINAL: Abdomen soft, non-tender, nondistended. MUSCULOSKELETAL: Pressure ulcers noted on lower extremity as well as sacral region. No pedal edema. No joint effusions. NEUROLOGICAL: Alert and oriented. Psych could not be assessed. IV line sites with no evidence of infection. Assessment & Plan Remarks Septic shock present on admission. MSSA bacteremia MSSA in urine : ? translocation. Proteus UTI Catheter associated UTI present on admission.(Has a chronic indwelling catheter. Was being treated with ciprofloxacin on admission.) Gram negative UTI infection Possible postobstructive or aspiration pneumonia. Left-sided pleural effusion s/p thoracentesis and CT placement Left side. Studies pending likely related to cancer or hemothorax. Rule out Empyema. Acute anemia: Blood loss query GI versus other site. Acute respiratory failure. Mild abnormal LFTs: ? sepsis related Acute metabolic encephalopathy: Likely infection related. Immune compromised host. Non-small cell adenocarcinoma of the lung with obstruction and mediastinal mass. Recs: Follow ruiz cultures DC Vanco IV DC Cefepime IV Levaquin oral (resistant Proteus: DC Levaquin) Start Ancef IV for MSSA bacteremia Start Ceftriaxone IV (for proteus UTI and Aspiration PNA) Continue Flagyl change to oral. Follow cultures Follow thoracentesis studies. Follow clinically. No family in room. Noted pt is full code. Melba Michel MD Nov 14, 2016 11:13
--- NOTE | 2016-11-14 11:45 | PD.ONC.PN ---
Subjective Subjective Remarks Afebrile overnight. Patient feeling tired today. He says he has been trying to rest. Objective Data Date Time Temp Pulse Resp B/P Pulse Ox O2 Delivery O2 Flow Rate FiO2 11/14/16 09:51 94 Nasal Cannula 2.00 11/14/16 08:00 102 11/14/16 08:00 93 Nasal Cannula 2.00 11/14/16 08:00 97.8 102 20 114/58 93 11/14/16 06:00 104 11/14/16 04:00 98.0 128 20 94/61 90 11/14/16 04:00 128 11/14/16 04:00 94 Nasal Cannula 2.00 11/14/16 00:00 93 Nasal Cannula 2.00 11/14/16 00:00 98.4 144 20 93/58 93 11/14/16 00:00 144 11/13/16 22:00 150 11/13/16 21:22 94 Nasal Cannula 2.00 11/13/16 20:00 93 Nasal Cannula 2.00 11/13/16 20:00 161 11/13/16 19:00 98.1 108 18 102/63 97 11/13/16 18:00 97.7 108 22 97/61 97 11/13/16 18:00 108 11/13/16 17:00 97.7 108 20 109/61 94 11/13/16 16:00 109 11/13/16 16:00 95 Nasal Cannula 2.00 11/13/16 16:00 97.7 109 18 102/66 95 11/13/16 15:00 97.3 108 22 98/63 100 11/13/16 14:00 97.3 103 22 103/62 100 11/13/16 14:00 103 11/13/16 13:00 96.9 100 21 111/65 98 11/13/16 12:00 100 11/13/16 12:00 96.9 100 21 111/65 98 11/13/16 12:00 98 Nasal Cannula 3.00 11/14/16 11/14/16 11/14/16 07:00 15:00 23:00 Intake Total 741 ml Output Total 270 ml Balance 471 ml Result Diagram: 11/14/16 0550 11/14/16 0550 Laboratory Results Laboratory Tests Test 11/13/16 11/13/16 11/14/1621/17 14:58 16:30 00:15 00:35 Activated Partial 49.4 SEC 52.8 SEC Thromboplast Time Nasal Screen MRSA (PCR) NEGATIVE White Blood Count 13.7 TH/MM3 Red Blood Count 2.34 MIL/MM3 Hemoglobin 6.9 GM/DL Hematocrit 20.8 % Mean Corpuscular Volume 89.0 FL Mean Corpuscular Hemoglobin 29.7 PG Mean Corpuscular Hemoglobin 33.4 % Concent Red Cell Distribution Width 18.7 % Platelet Count 199 TH/MM3 Mean Platelet Volume 7.2 FL Test 11/14/16 11/14/16 02:52 05:50 Blood Type B NEGATIVE Crossmatch Leukocyte-Reduced Red Blood Cells Blood Bank Comment White Blood Count 16.4 TH/MM3 Red Blood Count 2.81 MIL/MM3 Hemoglobin 8.1 GM/DL Hematocrit 24.5 % Mean Corpuscular Volume 87.3 FL Mean Corpuscular Hemoglobin 29.0 PG Mean Corpuscular Hemoglobin 33.2 % Concent Red Cell Distribution Width 18.7 % Platelet Count 203 TH/MM3 Mean Platelet Volume 7.4 FL Neutrophils (%) (Auto) 96.4 % Lymphocytes (%) (Auto) 1.0 % Monocytes (%) (Auto) 2.5 % Eosinophils (%) (Auto) 0.0 % Basophils (%) (Auto) 0.1 % Neutrophils # (Auto) 15.8 TH/MM3 Lymphocytes # (Auto) 0.2 TH/MM3 Monocytes # (Auto) 0.4 TH/MM3 Eosinophils # (Auto) 0.0 TH/MM3 Basophils # (Auto) 0.0 TH/MM3 CBC Comment AUTO DIFF Differential Total Cells 100 Counted Neutrophils % (Manual) 69 % Band Neutrophils % 25 % Lymphocytes % 1 % Monocytes % 4 % Neutrophils # (Manual) 15.6 TH/MM3 Metamyelocytes 1 % Differential Comment FINAL DIFF MANUAL Toxic Granulation 1+ Platelet Estimate NORMAL Platelet Morphology Comment NORMAL Helmet Cells OCC Acanthocytes 1+ Keratocytes OCC Activated Partial 61.4 SEC Thromboplast Time Sodium Level 138 MEQ/L Potassium Level 3.2 MEQ/L Chloride Level 107 MEQ/L Carbon Dioxide Level 19.2 MEQ/L Anion Gap 12 MEQ/L Blood Urea Nitrogen 24 MG/DL Creatinine 0.41 MG/DL Estimat Glomerular Filtration 209 ML/MIN Rate Random Glucose 158 MG/DL Calcium Level 7.2 MG/DL Protein Corrected Calcium 8.5 MG/DL Phosphorus Level 2.7 MG/DL Magnesium Level 1.5 MG/DL Total Protein 4.8 GM/DL Vancomycin Level Trough 10.2 MCG/ML Culture Results Microbiology Date/Time Procedure Status Source Growth 11/12/16 09:35 Aerobic Blood Culture - Preliminary Resulted Blood Peripheral Staphylococcus Aureus 11/12/16 09:35 Anaerobic Blood Culture - Final Resulted Staphylococcus Aureus 11/12/16 09:45 Aerobic Blood Culture - Preliminary Resulted Blood Peripheral Staphylococcus Aureus 11/12/16 09:45 Anaerobic Blood Culture - Preliminary Resulted Staphylococcus Aureus 11/12/16 09:57 Urine Culture - Final Complete Urine Clean Catch Proteus Mirabilis Staphylococcus Aureus 11/12/16 15:17 Gram Stain - Final Resulted Fluid Pleural Fluid 11/12/16 15:17 Body Fluid Culture - Preliminary Resulted Fluid Pleural Fluid NO GROWTH IN 48 HOURS. 11/12/16 15:17 Acid Fast Stain Received Fluid Pleural Fluid Pending 11/12/16 15:17 Mycobacterial Culture Received Fluid Pleural Fluid Pending 11/12/16 15:17 Fungal Smear - Final Resulted Fluid Pleural Fluid NO FUNGAL ELEMENTS SEEN. 11/12/16 15:17 Fungal Culture Resulted Fluid Pleural Fluid Pending 11/13/16 09:18 Legionella Antigen - Final Complete Urine Catheterized Urine PRESUMPTIVE NEGATIVE FOR LEGIONELLA P... 11/13/16 09:18 Streptococcus pneumoniae Antigen (M - Final Complete Urine Catheterized Urine PRESUMPTIVE NEGATIVE FOR STREPTOCOCCU... 11/13/16 14:50 Aerobic Blood Culture - Preliminary Resulted Blood Peripheral NO GROWTH IN 1 DAY 11/13/16 14:50 Anaerobic Blood Culture - Preliminary Resulted Blood Peripheral NO GROWTH IN 1 DAY 11/13/16 14:58 Aerobic Blood Culture - Preliminary Resulted Blood Peripheral NO GROWTH IN 1 DAY 11/13/16 14:58 Anaerobic Blood Culture - Preliminary Resulted Blood Peripheral NO GROWTH IN 1 DAY Imaging Studies Last 24 hours Impressions Chest X-Ray 11/14/16 0600 Signed Impressions: Service Date/Time: Monday, November 14, 2016 05:00 - CONCLUSION: Diffuse increased density likely representing a combination of edema, bilateral effusions, and some degree of consolidation and/or atelectasis at the mid and lower lungs. Sy Edwards MD Administered Medications Medications (Trade) Dose Ordered Sig/Elvia Route PRN Reason Start Time Stop Time Status Last Admin Dose Admin IV Flush (NS Flush) 2 ml BID IV FLUSH 11/12/16 21:00 11/14/16 08:30 Acetaminophen (Tylenol) 650 mg Q6H PRN PO PAIN 1-10 AND/OR FEVER >101F 11/12/16 12:00 11/13/16 21:07 Pantoprazole Sodium (Protonix Inj) 40 mg DAILY IV 11/13/16 09:00 11/14/16 08:30 Tiotropium Douglas (Spiriva Inh) 18 mcg DAILY INH 11/13/16 09:00 11/14/16 08:53 Clopidogrel Bisulfate (Plavix) 75 mg DAILY PO 11/13/16 09:00 11/14/16 08:29 Hydrocortisone Sodium Succinate 100 mg 100 mg Q8HR IV PUSH 11/12/16 14:00 11/14/16 05:46 Heparin Sodium/ Dextrose 250 ml @ 0 mls/hr TITRATE IV 11/12/16 11:15 11/13/16 21:05 Norepinephrine Bitartrate 250 ml @ 0 mls/hr TITRATE IV 11/12/16 13:30 11/12/16 18:48 Vasopressin/ Dextrose (Pitressin Inj/ D5W 100 ml Inj) 100 ml @ 0 mls/hr Q0M IV 11/12/16 13:20 11/13/16 10:10 Miscellaneous Information Patient in critical care unit? Ass... [id number] XX 11/12/16 18:30 11/12/16 18:30 Chlorhexidine Gluconate 3 pack 3 pack DAILY@04 TOP 11/13/16 04:00 11/17/16 04:01 11/14/16 04:00 Potassium Chloride 100 ml @ 50 mls/hr Q2H PRN IV For Potassium 2.8 - 3.2 mEq/L 11/13/16 09:45 11/14/16 10:54 Potassium Phosphate/Sodium Chloride (Potassium Phosphate Inj/NS 250 ml Inj) 260 ml @ 42 mls/hr UNSCH PRN IV SEE LABEL COMMENTS 11/13/16 09:45 11/13/16 13:05 Insulin Human Regular 1 1 Q6H SQ 11/13/16 10:15 11/14/16 10:53 Diltiazem HCl 125 mg/Sodium Chloride 125 ml @ 0 mls/hr TITRATE IV 11/14/16 00:30 11/14/16 01:30 Cefazolin Sodium/ Dextrose (Ancef 2 Gm Premix) 50 ml @ 100 mls/hr Q8H IV 11/14/16 08:00 11/14/16 08:29 Objective Remarks GENERAL: Chronically ill male, lying in bed, very weak appearing. SKIN: Warm and dry. HEAD: Normocephalic. EYES: No injection or drainage. NECK: Supple, trachea midline. CARDIOVASCULAR: IRR, rate in 130s RESPIRATORY: anterior donaldson with scattered rhonchi GASTROINTESTINAL: Abdomen soft, non-tender, nondistended. EXTREMITIES: No cyanosis MUSCULOSKELETAL: severely deconditioned. NEUROLOGICAL: awake but lethargic. Assessment/Plan Problem List: (1) Septic shock Status: Acute Plan: --currently on vasopressors + IV abx --BC no growth --CT chest showed bilateral pleural effusions, left greater than right. 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 --was some improvement of his tumor bulk with concurrent chemotherapy and radiation. --recently seen in the clinic and has declining PFS (3) Pleural effusion Status: Acute Plan: --could be cardiac vs malignant -- If the effusions are malignant, then he will have Stage IV disease. (4) Normocytic anemia Status: Acute Plan: -- recommend keeping his hemoglobin greater than 8. Assessment 65y/o with NSCLC admitted with sepsis. h/o tobacco abuse. COPD. Hypertension. Hyperlipidemia. 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 Pulmonary embolism. Peripheral vascular disease status post revascularization of the lower extremities. History of coronary artery disease/OR, status post cardiac catheterization with PCI and drug eluding stent. Plan 1. monitor hgb 2. continue antibiotics 3. supportive care. Attending Statement The exam, history, and the medical decision-making described in the above note were completed with the assistance of the mid-level provider. I reviewed and agree with the findings presented. I attest that I had a [id number] encounter with the patient on the same day, and personally performed and documented my assessment and findings in the medical record. Lizbeth Cameron Nov 14, 2016 11:45 Rj Monteiro MD Nov 15, 2016 14:22
[2016-11-14] MEDS: cefTRIAXone INJ 2,000 MG in SODIUM CHLORIDE 0.9% INJ 100 ML IV SCH (12:03)
[2016-11-14] MEDS: metroNIDAZOLE 500 MG TAB PO SCH ×2 (13:21→20:24)
[2016-11-14] MEDS: VASOPRESSIN INJ 40 UNITS in DEXTROSE 5% IN WATER 100ML INJ 98 ML IV SCH ×2 (15:43)
[2016-11-14] MEDS ORDERED: METOPROLOL TARTRATE 5 MG/5 ML VIAL IV PUSH ONE ×2 (15:45→17:45)
[2016-11-14] MEDS ORDERED: TERBUTALINE INJ 1 MG/ML AMP SQ PRN ×2 (16:15)
[2016-11-14] MEDS: PHENYLEPHRINE INJ 40 MG in DEXTROSE 5% IN WATE 500 ML INJ 496 ML IV SCH ×2 (16:28)
[2016-11-14] MEDS: SODIUM CHLORIDE 0.9% FLUSH 5 ML FLUSH IV FLUSH PRN (20:25)
--- NOTE | 2016-11-14 21:06 | EKG ---
Date Performed: 11/14/2016 Time Performed: 09:09:49 PTAGE: 65 years EKG: ATRIAL FIBRILLATION WITH RAPID VENTRICULAR RESPONSE COMPARED TO PREVIOUS TRACING PATIENT NO W IN AFIB WITH RAPID VENTRICULAR RESPONSE. ABNORMAL RHYTHM ECG PREVIOUS TRACING : 11/12/2016 09.21 DOCTOR: Tigre Sheridan Interpretating Date/Time 11/14/2016 21:06:23
[2016-11-15] VITALS (14 sets, daily range): BP systolic 109–135; BP diastolic 68–95; PULSE 89–141; RESP 18–28; TEMP 97–98.3; O2SAT 90–96
[2016-11-15] MEDS: METOPROLOL TARTRATE 5 MG/5 ML VIAL IV PUSH SCH (01:16)
[2016-11-15] MEDS: SODIUM CHLORIDE 0.9% FLUSH 5 ML FLUSH IV FLUSH PRN ×3 (01:16→08:28)
[2016-11-15] MEDS: CHLORHEXIDINE GLUCONATE 2 % 1 PACK (2 CLOTHS)(taper/protocol) TOP SCH (04:00)
[2016-11-15] MEDS ORDERED: AMIODARONE 150 MG/D5W 97 ML BOLUS 10 MINUTES IV ONE ×2 (04:00)
[2016-11-15] MEDS: RESP: ALBUTEROL 2.5 MG/IPRATROPIUM 0.5 MG NEB (SCH) NEB ×4 (04:00→21:38)
[2016-11-15] MEDS: INSULIN NovoLIN REGULAR SUPPLEMENTAL SCALE SQ SCH ×4 (04:15→22:15)
[2016-11-15] MEDS: HEPARIN-D5W INJ 250 ML IV SCH ×2 (04:35→15:16)
[2016-11-15] MEDS: HYDROCORTISONE SOD SUCCINATE 100 MG VIAL IV PUSH SCH ×3 (06:02→22:18)
[2016-11-15] MEDS: metroNIDAZOLE 500 MG TAB PO SCH ×3 (06:02→22:18)
[2016-11-15 06:18] LABS: HEMATOCRIT 30.3 % (39.0-51.0); MEAN CELL VOLUME 85.8 FL (80.0-100.0); MEAN CORPUSCULAR HEMOGLOBIN 28.6 PG (27.0-34.0); MEAN CORPUSCULAR HGB CONC 33.3 % (32.0-36.0); PLATELET COUNT 364 TH/MM3 (150-450); RED BLOOD COUNT 3.53 MIL/MM3 (4.50-5.90); RED CELL DISTRIBUTION WIDTH 18.8 % (11.6-17.2); WHITE BLOOD COUNT 47.9 TH/MM3 (4.0-11.0)
[2016-11-15 06:28] LABS: HEMO FLAGS AUTO DIFF
[2016-11-15 07:22] LABS: BICARBONATE 20.6 MEQ/L (21.0-32.0); MAGNESIUM 1.4 MG/DL (1.5-2.5)
[2016-11-15 07:25] LABS: POTASSIUM 2.8 MEQ/L (3.5-5.1)
[2016-11-15 07:45] LABS: APTT (PATIENT) 66.7 SEC (24.3-30.1)
--- NOTE | 2016-11-15 07:59 | HHI.CCPN ---
Subjective Remarks/Hospital Course This is a 64-year-old male with history of COPD, hypertension, coronary artery disease, STEMI on 07/08/16 s/p PCI and DELMY (Dr. Crouch), history of C. difficile colitis, non-small cell lung cancer receiving chemoradiation per Dr. Monteiro, history of pulmonary embolism on Lovenox who was admitted to hospital recently from 07/08-08/31/16 with above diagnoses. During that admission he was noted to have a mediastinal and lung mass which was invading bilateral mainstem bronchi- subsequently diagnosed as a non-small cell lung cancer(adenocarcinoma). He had complete atelectasis of the right lung last admission which required bronchoscopy 2. With chemoradiation obstruction improved with resolution of atelectasis. Today patient was brought from the intermediate for fever, hypotension, confusion. Apparently patient was to be started on antibiotics for a UTI however prior to starting the antibiotics, he was found to be profoundly hypotensive, confused and was sent to ER. The patient also was noted to have diarrhea. His initial systolic blood pressure was in the 70s, rectal temperature of 100.4 and also tachycardic with a heart rate in 100's. Source of infection seems to be UTI, though HCAP cannot be ruled out. X-ray and CT of the chest shows bilateral pleural effusions left larger than right associated with infiltrate/atelectasis. He has multiple skin ulcers including his sacral area and his bilateral ankles. Patient received 3 L normal saline bolus with improvement in blood pressure. Levophed ordered. I have started patient on stress dose steroids as he was receiving prednisone at the intermediate . Patient received Zosyn in the ED. I will place patient on cefepime, Flagyl (hx of C Diff) and IV vancomycin. Infectious disease consulted for septic shock in an immunocompromised patient. 11/13 Patient is on 35% VM, afebrile. Off Levophed 11/14 Patient was started on Cardizem drip 15mg/hr overnight in addition was given Lopressor 2.5mg IV x1 for tachycardia. Afebrile. On Heparin drip. s/p transfusion 1u PRBC for Hgb 6.9 now 8.1. 11/15 Patient is on Neosyn 40 mics, off vasopressin. He was given Amiodarone bolus overnight for Afib with RVR HR remains 120-130's. Afebrile. Objective Vital Signs Date Time Temp Pulse Resp B/P Pulse Ox O2 Delivery O2 Flow Rate FiO2 11/15/16 06:00 123 11/15/16 04:00 98.3 24 128/95 92 11/15/16 04:00 Nasal Cannula 3.00 11/13/16 09:28 35 Intake and Output 11/14/16 11/14/16 11/15/16 08:00 16:00 00:00 Intake Total 741 ml 575 ml 324 ml Output Total 270 ml 1550 ml 430 ml Balance 471 ml -975 ml -106 ml Result Diagram: 11/15/16 0410 11/15/16 0410 Other Results Laboratory Tests Test 11/14/16 11/15/16 18:10 04:10 Potassium Level 3.0 MEQ/L 2.8 MEQ/L White Blood Count 47.9 TH/MM3 Red Blood Count 3.53 MIL/MM3 Hemoglobin 10.1 GM/DL Hematocrit 30.3 % Mean Corpuscular Volume 85.8 FL Mean Corpuscular Hemoglobin 28.6 PG Mean Corpuscular Hemoglobin 33.3 % Concent Red Cell Distribution Width 18.8 % Platelet Count 364 TH/MM3 Mean Platelet Volume 7.1 FL Neutrophils (%) (Auto) % Lymphocytes (%) (Auto) % Monocytes (%) (Auto) % Eosinophils (%) (Auto) % Basophils (%) (Auto) % Neutrophils # (Auto) TH/MM3 Lymphocytes # (Auto) TH/MM3 Monocytes # (Auto) TH/MM3 Eosinophils # (Auto) TH/MM3 Basophils # (Auto) TH/MM3 CBC Comment AUTO DIFF Sodium Level 139 MEQ/L Chloride Level 107 MEQ/L Carbon Dioxide Level 20.6 MEQ/L Anion Gap 11 MEQ/L Blood Urea Nitrogen 9 MG/DL Creatinine 0.50 MG/DL Estimat Glomerular Filtration 166 ML/MIN Rate Random Glucose 129 MG/DL Calcium Level 7.7 MG/DL Phosphorus Level 1.5 MG/DL Magnesium Level 1.4 MG/DL Imaging Last Impressions Chest X-Ray 11/14/16 0600 Signed Impressions: Service Date/Time: Monday, November 14, 2016 05:00 - CONCLUSION: Diffuse increased density likely representing a combination of edema, bilateral effusions, and some degree of consolidation and/or atelectasis at the mid and lower lungs. Sy Edwards MD Chest CT 2/19/17 0000 Signed Impressions: Service Date/Time: Saturday, November 12, 2016 11:23 - CONCLUSION: 1. Bilateral pleural effusions left greater than right. Bilateral dependent parenchymal lung opacity indicating atelectasis. 2. Decrease in size of right hilar and mediastinal mass/enlarged lymph nodes. Prashant Valdez MD Objective Remarks GENERAL: Elderly ill cachectic gentleman who appears pale, critically ill, SKIN: Warm and dry. HEAD: Atraumatic. Normocephalic. EYES: No scleral icterus. No injection or drainage. ENT: No nasal bleeding or discharge. Dry mucous membranes NECK: Trachea midline. No JVD. CARDIOVASCULAR: Tachycardic with regular rhythm. No murmur appreciated. RESPIRATORY: No accessory muscle use, diminished breath sound at bases. GASTROINTESTINAL: Abdomen soft, cachectic, non-tender, nondistended. BACK/SKIN: The patient has stage I - II pressure sores on his presacral area and ankles. MUSCULOSKELETAL: Bilateral ankle pressure wounds. NEUROLOGICAL: Opens eyes on repeated requests. Moves all extremities A/P Assessment and Plan NEURO: Acute metabolic encephalopathy Previous CVA -Minimize sedation, monitor neuro status closely. Awake and alert RESP: Respiratory insufficiency Left more than right pleural effusion Possible HCAP COPD Adenocarcinoma of the lung -Wean FiO2 to keep saturation more than 90% -DuoNeb every 6 hours scheduled and when necessary -On chronic prednisone, on Solucortef 100mg IV Q8 -s/p CT placement 11/12 for left pleural effusion-monitor CT drainage. Exudative effusion per LDH criteria -On chemoradiation per Dr. Monteiro CV: Afib with RVR Hypotension - Coronary artery disease Status post STEMI 07/08/16 with PCI/DELMY to D1 off Neosyn monitor HR and BP keep MAP>65mmHg. Lactic acid 1.4 today Continue with Amiodarone drip will add Cardizem drip discussed with Dr. Crouch. Check 2D echo to eval LV function, Echo 08/15 EF 55-60% Continue Plavix, check cardiac enzymes, TSH, Cards eval. GI: Diarrhea History C. difficile colitis --Will get modified barium swallow per speech recommendations r/o aspiration. - On IV IV Protonix : -Monitor renal function, I/O's, electrolytes replacement per protocol -Will need K, Mg, Phos replacement today ID: Staph Bacteremia Septic shock UTI Possible HCAP History of C. difficile colitis -Continue with abx per ID- Dr. Fabien Michel ( Rocephin, Cefazolin, Flagyl) add PO Vanco 125mg QID. monitor for signs of infections ( Fever, WBC) repeat CBC, check C-diff PCR -BC 11/13: NGTD -BC 11/12 : Staph Aureus -Urine cx 11/12: Proteus Mirabilis, staph species -Strep pneumonia and Legionella urinary Ag negative -Fluid cx 11/12: NGTD HEME: Non-small cell lung cancer Pulmonary embolism diagnosed on 07/08/16 -Monitor CBC, -Had been started on chemoradiation therapy Dr. Monteiro -Heme onc is following- Dr. Monteiro ENDO: -Electrolyte replacement protocol, sliding scale insulin for glycemic control PROPH: -Bilateral lower extremity SCDs. IV heparin, IV Protonix LINES: -Utilize peripheral IVs, Left subclavian CVP placed 11/12 Level 3 Jimmy Fernandes MD Nov 15, 2016 07:59
[2016-11-15 08:05] LABS: BANDS 6 % (0-6); METAMYELOCYTES 1 % (0-1); MYELOCYTES 6 % (0-0); NEUTROPHIL # MANUAL DIFF 45.5 TH/MM3 (1.8-7.7); POLYS (SEG NEUTROPHILS) 82 % (16-70); WBC DIFF SAMPLE 100
[2016-11-15 08:08] LABS: ACANTHOCYTES OCC (NORMAL); BURR CELLS 1+ (NORMAL); TOXIC GRANULATION 1+ (NORMAL)
[2016-11-15 08:09] LABS: PLATELET ESTIMATE SMEAR NORMAL (NORMAL); PLATELET MORPHOLOGY NORMAL (NORMAL); SCAN/DIFF FINAL DIFF MANUAL
[2016-11-15] MEDS: ceFAZolin 2 GM PREMIX 50 ML IV SCH ×3 (08:26→22:17)
[2016-11-15] MEDS: POTASSIUM CHLOR 40 MEQ PREMIX 100 ML IV PRN ×2 (08:26→11:25)
[2016-11-15] MEDS: PANTOPRAZOLE SODIUM 40 MG VIAL IV SCH (08:27)
[2016-11-15] MEDS: SODIUM CHLORIDE 0.9% FLUSH 5 ML FLUSH IV FLUSH SCH ×2 (08:28→22:21)
[2016-11-15] MEDS: CLOPIDOGREL 75 MG TAB PO SCH (08:28)
[2016-11-15] MEDS: TIOTROPIUM BROMIDE 18 MCG INH INH SCH (08:29)
[2016-11-15 08:38] LABS: AUTOMATED NEUTROPHIL # 40.9 TH/MM3 (1.8-7.7); BASOPHIL % 0.1 % (0.0-2.0); HEMATOCRIT 29.6 % (39.0-51.0); LYMPH % 1.1 % (9.0-44.0); LYMPHOCYTE # 0.5 TH/MM3 (1.0-4.8); MEAN CELL VOLUME 86.4 FL (80.0-100.0); MEAN CORPUSCULAR HEMOGLOBIN 28.2 PG (27.0-34.0); MEAN CORPUSCULAR HGB CONC 32.7 % (32.0-36.0); MONO % 2.7 % (0.0-8.0); NEUT % 96.1 % (16.0-70.0); PLATELET COUNT 317 TH/MM3 (150-450); RED BLOOD COUNT 3.43 MIL/MM3 (4.50-5.90); WHITE BLOOD COUNT 42.6 TH/MM3 (4.0-11.0)
[2016-11-15 08:39] LABS: HEMO FLAGS AUTO DIFF
--- NOTE | 2016-11-15 09:06 | RADRPT ---
EXAM DATE/TIME: 11/15/2016 08:10 [facility] COMPARISON: CHEST SINGLE AP, November 14, 2016, 5:00. INDICATIONS : Short of breath. MEDICAL HISTORY : Hypertension. SURGICAL HISTORY : Appendectomy. ENCOUNTER: Initial ACUITY: 4 - 6 days PAIN SCORE: 1/10 LOCATION: Bilateral chest FINDINGS: Left chest tube remains in place with no pneumothorax. Left subclavian venous catheter are unchanged. Pulmonary opacities persist in the majority probably representing some degree of pleural effusion st able on the right and minimally improved with better definition hemidiaphragm on the left. CONCLUSION: Essentially stable chest Luca Alford MD on November 15, 2016 at 9:04 Board Certified Radiologist. This report was verified electronically.
[2016-11-15] MEDS: AMIODARONE INJ 450 MG in DEXTROSE 5% IN WATE(EXCEL) INJ 241 ML IV SCH ×6 (09:07→22:19)
[2016-11-15 09:15] LABS: BANDS 15 % (0-6); MYELOCYTES 4 % (0-0); NEUTROPHIL # MANUAL DIFF 40.9 TH/MM3 (1.8-7.7); POLYS (SEG NEUTROPHILS) 77 % (16-70); WBC DIFF SAMPLE 100
[2016-11-15 09:16] LABS: TOXIC GRANULATION 1+ (NORMAL)
[2016-11-15 09:17] LABS: ACANTHOCYTES OCC (NORMAL); BURR CELLS 1+ (NORMAL); PLATELET ESTIMATE SMEAR NORMAL (NORMAL); PLATELET MORPHOLOGY NORMAL (NORMAL); SCAN/DIFF FINAL DIFF MANUAL
[2016-11-15] MEDS: cefTRIAXone INJ 2,000 MG in SODIUM CHLORIDE 0.9% INJ 100 ML IV SCH (11:26)
[2016-11-15] MEDS ORDERED: DIGOXIN 0.5 MG/2 ML VIAL IV PUSH ONE ×3 (12:15→21:15)
[2016-11-15] MEDS: VANCOMYCIN 500 MG VIAL (FOR ORAL USE ONLY) PO SCH ×3 (12:34→22:19)
[2016-11-15] MEDS: PHENYLEPHRINE INJ 40 MG in DEXTROSE 5% IN WATE 500 ML INJ 496 ML IV SCH ×2 (12:54)
--- NOTE | 2016-11-15 14:19 | PD.ONC.PN ---
Subjective Subjective Remarks remains critically ill. had Afib with RVR overnight.On Cardiazem GTT and amiodarone awake and alert. chest tube in place. Objective Data Date Time Temp Pulse Resp B/P Pulse Ox O2 Delivery O2 Flow Rate FiO2 11/15/16 06:00 123 11/15/16 04:00 125 11/15/16 04:00 98.3 125 24 128/95 92 11/15/16 04:00 92 Nasal Cannula 3.00 11/15/16 02:00 139 11/15/16 00:00 97.8 136 18 124/72 96 11/15/16 00:00 96 Nasal Cannula 5.00 11/15/16 00:00 136 11/14/16 22:00 123 11/14/16 21:26 96 Nasal Cannula 3.00 11/14/16 20:00 132 11/14/16 20:00 98.0 132 22 120/82 96 11/14/16 20:00 96 Nasal Cannula 5.00 11/14/16 18:00 91 Nasal Cannula 5.00 11/14/16 18:00 128 11/14/16 16:00 91 Nasal Cannula 5.00 11/14/16 16:00 130 11/14/16 16:00 98.3 128 22 89/58 91 11/14/16 14:30 93 Nasal Cannula 5.00 11/15/16 11/15/16 11/15/16 07:00 15:00 23:00 Intake Total 535 ml Output Total 210 ml Balance 325 ml Result Diagram: 11/15/16 0800 11/15/16 0410 Laboratory Results Laboratory Tests Test 11/14/16 11/15/16 11/15/16 11/15/16 18:10 04:10 07:20 08:00 Potassium Level 3.0 MEQ/L 2.8 MEQ/L White Blood Count 47.9 TH/MM3 42.6 TH/MM3 Red Blood Count 3.53 MIL/MM3 3.43 MIL/MM3 Hemoglobin 10.1 GM/DL 9.7 GM/DL Hematocrit 30.3 % 29.6 % Mean Corpuscular Volume 85.8 FL 86.4 FL Mean Corpuscular Hemoglobin 28.6 PG 28.2 PG Mean Corpuscular Hemoglobin 33.3 % 32.7 % Concent Red Cell Distribution Width 18.8 % 19.0 % Platelet Count 364 TH/MM3 317 TH/MM3 Mean Platelet Volume 7.1 FL 6.8 FL Neutrophils (%) (Auto) % 96.1 % Lymphocytes (%) (Auto) % 1.1 % Monocytes (%) (Auto) % 2.7 % Eosinophils (%) (Auto) % 0.0 % Basophils (%) (Auto) % 0.1 % Neutrophils # (Auto) TH/MM3 40.9 TH/MM3 Lymphocytes # (Auto) TH/MM3 0.5 TH/MM3 Monocytes # (Auto) TH/MM3 1.2 TH/MM3 Eosinophils # (Auto) TH/MM3 0.0 TH/MM3 Basophils # (Auto) TH/MM3 0.0 TH/MM3 CBC Comment AUTO DIFF AUTO DIFF Differential Total Cells 100 100 Counted Neutrophils % (Manual) 82 % 77 % Band Neutrophils % 6 % 15 % Lymphocytes % 2 % 1 % Monocytes % 3 % 3 % Neutrophils # (Manual) 45.5 TH/MM3 40.9 TH/MM3 Metamyelocytes 1 % Myelocytes 6 % 4 % Differential Comment FINAL DIFF FINAL DIFF MANUAL MANUAL Toxic Granulation 1+ 1+ Platelet Estimate NORMAL NORMAL Platelet Morphology Comment NORMAL NORMAL Yulissa Cells 1+ 1+ Acanthocytes OCC OCC Sodium Level 139 MEQ/L Chloride Level 107 MEQ/L Carbon Dioxide Level 20.6 MEQ/L Anion Gap 11 MEQ/L Blood Urea Nitrogen 9 MG/DL Creatinine 0.50 MG/DL Estimat Glomerular Filtration 166 ML/MIN Rate Random Glucose 129 MG/DL Calcium Level 7.7 MG/DL Phosphorus Level 1.5 MG/DL Magnesium Level 1.4 MG/DL Activated Partial 66.7 SEC Thromboplast Time Lactic Acid Level 1.4 mmol/L Total Creatine Kinase 23 U/L Troponin I 0.02 NG/ML Thyroid Stimulating Hormone 0.983 uIU/ML 3rd Gen Culture Results Microbiology Date/Time Procedure Status Source Growth 11/12/16 15:17 Gram Stain - Final Complete Fluid Pleural Fluid 11/12/16 15:17 Body Fluid Culture - Final Complete Fluid Pleural Fluid NO GROWTH IN 72 HRS.--AEROBICALLY OR ... 11/12/16 15:17 Acid Fast Stain - Final Resulted Fluid Pleural Fluid NO ACID FAST BACILLI SEEN 11/12/16 15:17 Mycobacterial Culture Resulted Fluid Pleural Fluid Pending 11/12/16 15:17 Fungal Smear - Final Resulted Fluid Pleural Fluid NO FUNGAL ELEMENTS SEEN. 11/12/16 15:17 Fungal Culture Resulted Fluid Pleural Fluid Pending 11/13/16 09:18 Legionella Antigen - Final Complete Urine Catheterized Urine PRESUMPTIVE NEGATIVE FOR LEGIONELLA P... 11/13/16 09:18 Streptococcus pneumoniae Antigen (M - Final Complete Urine Catheterized Urine PRESUMPTIVE NEGATIVE FOR STREPTOCOCCU... 11/13/16 14:50 Aerobic Blood Culture - Preliminary Resulted Blood Peripheral NO GROWTH IN 2 DAYS 11/13/16 14:50 Anaerobic Blood Culture - Preliminary Resulted Blood Peripheral NO GROWTH IN 2 DAYS 11/13/16 14:58 Aerobic Blood Culture - Preliminary Resulted Blood Peripheral NO GROWTH IN 2 DAYS 11/13/16 14:58 Anaerobic Blood Culture - Preliminary Resulted Blood Peripheral NO GROWTH IN 2 DAYS Imaging Studies Last 24 hours Impressions Chest X-Ray 11/15/16 0000 Signed Impressions: Service Date/Time: Tuesday, November 15, 2016 08:10 - CONCLUSION: Essentially stable chest Luca Alford MD Administered Medications Medications (Trade) Dose Ordered Sig/Elvia Route PRN Reason Start Time Stop Time Status Last Admin Dose Admin IV Flush (NS Flush) 2 ml UNSCH PRN IV FLUSH FLUSH AFTER USING IV ACCESS 11/12/16 11:00 11/15/16 08:28 IV Flush (NS Flush) 2 ml BID IV FLUSH 11/12/16 21:00 11/15/16 08:28 Acetaminophen (Tylenol) 650 mg Q6H PRN PO PAIN 1-10 AND/OR FEVER >101F 11/12/16 12:00 11/13/16 21:07 Pantoprazole Sodium (Protonix Inj) 40 mg DAILY IV 11/13/16 09:00 11/15/16 08:27 Tiotropium Chester (Spiriva Inh) 18 mcg DAILY INH 11/13/16 09:00 11/15/16 08:29 Clopidogrel Bisulfate (Plavix) 75 mg DAILY PO 11/13/16 09:00 11/15/16 08:28 Hydrocortisone Sodium Succinate 100 mg 100 mg Q8HR IV PUSH 11/12/16 14:00 11/15/16 06:02 Heparin Sodium/ Dextrose 250 ml @ 0 mls/hr TITRATE IV 11/12/16 11:15 11/15/16 04:35 Norepinephrine Bitartrate 250 ml @ 0 mls/hr TITRATE IV 11/12/16 13:30 11/12/16 18:48 Vasopressin/ Dextrose (Pitressin Inj/ D5W 100 ml Inj) 100 ml @ 0 mls/hr Q0M IV 11/12/16 13:20 11/14/16 15:43 Miscellaneous Information Patient in critical care unit? Ass... [id number] XX 11/12/16 18:30 11/12/16 18:30 Chlorhexidine Gluconate 3 pack 3 pack DAILY@04 TOP 11/13/16 04:00 11/17/16 04:01 11/15/16 04:00 Potassium Chloride 100 ml @ 50 mls/hr Q2H PRN IV For Potassium 2.8 - 3.2 mEq/L 11/13/16 09:45 11/15/16 11:25 Potassium Phosphate/Sodium Chloride (Potassium Phosphate Inj/NS 250 ml Inj) 260 ml @ 42 mls/hr UNSCH PRN IV SEE LABEL COMMENTS 11/13/16 09:45 11/13/16 13:05 Insulin Human Regular 1 1 Q6H SQ 11/13/16 10:15 11/14/16 23:06 Diltiazem HCl 125 mg/Sodium Chloride 125 ml @ 0 mls/hr TITRATE IV 11/14/16 00:30 11/14/16 01:30 Cefazolin Sodium/ Dextrose (Ancef 2 Gm Premix) 50 ml @ 100 mls/hr Q8H IV 11/14/16 08:00 11/15/16 08:26 Metronidazole 500 mg 500 mg Q8HR PO 11/14/16 14:00 11/15/16 06:02 Ceftriaxone Sodium 2000 mg/ Sodium Chloride 100 ml @ 200 mls/hr Q24H IV 11/14/16 11:00 11/15/16 11:26 Phenylephrine HCl 40 mg/Dextrose 500 ml @ 0 mls/hr TITRATE IV 11/14/16 17:15 11/15/16 12:54 Amiodarone HCl/ Dextrose (Cordarone Inj/ D5W (Hemlock) Inj) 250 ml @ 0 mls/hr CONTINUOUS IV 11/15/16 07:45 11/15/16 09:07 Vancomycin HCl (VANCOMYCIN for oral use only) 125 mg QID PO 11/15/16 13:00 11/15/16 12:34 Objective Remarks GENERAL: critically ill NECK: Supple, trachea midline. No JVD or lymphadenopathy. LYMPHATIC: No adenopathy. CARDIOVASCULAR: IRIR. RESPIRATORY: b/l rhochi. decreased sounds at bases. chest tube in place GASTROINTESTINAL: Abdomen soft, non-tender, nondistended. EXTREMITIES: No cyanosis, or edema. Assessment/Plan Problem List: (1) Septic shock Status: Acute Plan: --currently on vasopressors + IV abx --BC no growth --CT chest showed bilateral pleural effusions, left greater than right. 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 --was some improvement of his tumor bulk with concurrent chemotherapy and radiation. --recently seen in the clinic and has declining PFS (3) Pleural effusion Status: Acute Plan: --could be cardiac vs malignant -- If the effusions are malignant, then he will have Stage IV disease. (4) Normocytic anemia Status: Acute Plan: -- recommend keeping his hemoglobin greater than 8. Assessment 65y/o with NSCLC admitted with sepsis. h/o tobacco abuse. COPD. Hypertension. Hyperlipidemia. 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 Pulmonary embolism. Peripheral vascular disease status post revascularization of the lower extremities. History of coronary artery disease/MT, status post cardiac catheterization with PCI and drug eluding stent. Plan Leukocytosis due to infection/sepsis. on abx. appreciate ID assistance Anemia: Hb stable. Transfuse to keep Hb > 7.5 Supprotive care per primary team . Cytology results pending from pleural fluid Poor prognosis with multiple co-mobilities. Rj Monteiro MD Nov 15, 2016 14:19
[2016-11-15] MEDS ORDERED: DILTIAZEM HCL 25 MG/5 ML VIAL IV ONE ×2 (15:15→17:00)
[2016-11-15 16:39] LABS: BLOOD GAS CARBOXYHEMOGLOBIN 1.5 % (0-4); BLOOD GAS HCO3 18 mmol/L (22-26); BLOOD GAS O2 HGB SATURATION 90 % (90-100); BLOOD GAS OXYGEN CONTENT 13.2 Vol % (12.0-20.0); BLOOD GAS PCO2 22 mmHg (38-42); BLOOD GAS PO2 60 mmHg (61-120); BLOOD GAS TOTAL HGB 10.5 G/DL (12.0-16.0); TEMP CORR TO 98.6
[2016-11-15 16:40] LABS: CRITICAL VALUE YES; DRAW SITE RT RADIAL; LITER FLOW 4 L/M; NUMBER OF ARTERIAL PUNCTURES 1; OXYGEN DEVICE NASAL CANNULA; STAT NO; ULNAR PULSE PRESENT
[2016-11-15] MEDS: SODIUM PHOSPHATE INJ 30 MMOL in SODIUM CHLOR 0.9% 250 ML INJ 240 ML IV PRN (16:59)
[2016-11-15] MEDS: MAGNESIUM SULFATE INJ 2 GM in SODIUM CHLORIDE 0.9% INJ 96 ML IV PRN (16:59)
[2016-11-15] MEDS: DILTIAZEM INJ 125 MG in SODIUM CHLORIDE 0.9% INJ 100 ML IV SCH ×2 (17:49→22:19)
--- NOTE | 2016-11-15 18:45 | HHI.IDPN ---
Subjective Subjective Remarks is a 65 y/o CM who looks older than stated age. His PMHx is significant for COPD, pulmonary embolism, non-small cell lung cancer diagnosis adenocarcinoma along with the mediastinal mass status post chemotherapy as well as radiation therapy who follows with Dr. Rj Monteiro. Patient was recently admitted on July 08, 2016 for chest pain diagnosed with ST elevation CA status post PCI and DELMY by Dr. Crouch cardiology. Patient also was admitted between July 08 to August 31, 2016 and underwent evaluation with diagnosis of non-small cell adenoca lung cancer. At that time was noted to have a lung mass which was invading bilateral mainstem bronchi this was diagnosed to be adenocarcinoma non-small cell lung cancer. He had complete atelectasis of the right lung which required bronchoscopy 2. Patient also underwent chemoradiation therapy and the obstruction was resolved reportedly. Delayed entry patient seen at 10:30 am ~ Overnight events reviewed No fever No rash No diarrhea More alert, interactive with family. On Vasopressin Afib with RVR persistent. Cardiology consulted. WBC elevated markedly but clinically no change to suggest worsening sepsis. Antibiotics Ancef IV Ceftriaxone IV Flagyl oral Lines Line sites with no e/o infection Past Medical History reviewed Allergies: Coded Allergies: No Known Allergies (Unverified , 07/08/16) Objective . Vital Signs Date Time Temp Pulse Resp B/P Pulse Ox O2 Delivery O2 Flow Rate FiO2 11/15/16 16:00 129 11/15/16 14:00 125 11/15/16 12:00 131 11/15/16 10:00 131 11/15/16 08:00 137 11/15/16 06:00 123 11/15/16 04:00 125 11/15/16 04:00 98.3 125 24 128/95 92 11/15/16 04:00 92 Nasal Cannula 3.00 11/15/16 02:00 139 11/15/16 00:00 97.8 136 18 124/72 96 11/15/16 00:00 96 Nasal Cannula 5.00 11/15/16 00:00 136 11/14/16 22:00 123 11/14/16 21:26 96 Nasal Cannula 3.00 11/14/16 20:00 132 11/14/16 20:00 98.0 132 22 120/82 96 11/14/16 20:00 96 Nasal Cannula 5.00 11/14/16 11/14/1617 15:00 23:00 07:00 Intake Total 575 ml 324 ml 535 ml Output Total 1550 ml 430 ml 210 ml Balance -975 ml -106 ml 325 ml Intake Oral 120 ml 50 ml 50 ml IV Total 455 ml 274 ml 485 ml Output Urine Total 1500 ml 400 ml 200 ml Chest Tube Drainage Total 50 ml 30 ml 10 ml # Bowel Movements 1 . Laboratory Tests Test 11/14/16 11/14/16 11/15/16 11/15/16 00:35 05:50 04:10 08:00 White Blood Count 13.7 TH/MM3 16.4 TH/MM3 47.9 TH/MM3 42.6 TH/MM3 Red Blood Count 2.34 MIL/MM3 2.81 MIL/MM3 3.53 MIL/MM3 3.43 MIL/MM3 Hemoglobin 6.9 GM/DL 8.1 GM/DL 10.1 GM/DL 9.7 GM/DL Hematocrit 20.8 % 24.5 % 30.3 % 29.6 % Mean Corpuscular Volume 89.0 FL 87.3 FL 85.8 FL 86.4 FL Mean Corpuscular Hemoglobin 29.7 PG 29.0 PG 28.6 PG 28.2 PG Mean Corpuscular Hemoglobin 33.4 % 33.2 % 33.3 % 32.7 % Concent Red Cell Distribution Width 18.7 % 18.7 % 18.8 % 19.0 % Platelet Count 199 TH/MM3 203 TH/MM3 364 TH/MM3 317 TH/MM3 Mean Platelet Volume 7.2 FL 7.4 FL 7.1 FL 6.8 FL Neutrophils (%) (Auto) 96.4 % % 96.1 % Lymphocytes (%) (Auto) 1.0 % % 1.1 % Monocytes (%) (Auto) 2.5 % % 2.7 % Eosinophils (%) (Auto) 0.0 % % 0.0 % Basophils (%) (Auto) 0.1 % % 0.1 % Neutrophils # (Auto) 15.8 TH/MM3 TH/MM3 40.9 TH/MM3 Lymphocytes # (Auto) 0.2 TH/MM3 TH/MM3 0.5 TH/MM3 Monocytes # (Auto) 0.4 TH/MM3 TH/MM3 1.2 TH/MM3 Eosinophils # (Auto) 0.0 TH/MM3 TH/MM3 0.0 TH/MM3 Basophils # (Auto) 0.0 TH/MM3 TH/MM3 0.0 TH/MM3 CBC Comment AUTO DIFF AUTO DIFF AUTO DIFF Differential Total Cells 100 100 100 Counted Neutrophils % (Manual) 69 % 82 % 77 % Band Neutrophils % 25 % 6 % 15 % Lymphocytes % 1 % 2 % 1 % Monocytes % 4 % 3 % 3 % Neutrophils # (Manual) 15.6 TH/MM3 45.5 TH/MM3 40.9 TH/MM3 Metamyelocytes 1 % 1 % Differential Comment FINAL DIFF FINAL DIFF FINAL DIFF MANUAL MANUAL MANUAL Toxic Granulation 1+ 1+ 1+ Platelet Estimate NORMAL NORMAL NORMAL Platelet Morphology Comment NORMAL NORMAL NORMAL Helmet Cells OCC Acanthocytes 1+ OCC OCC Keratocytes OCC Myelocytes 6 % 4 % Yulissa Cells 1+ 1+ Laboratory Tests Test 11/14/16 11/14/16 11/15/16 11/15/16 05:50 18:10 04:10 08:00 Sodium Level 138 MEQ/L 139 MEQ/L Potassium Level 3.2 MEQ/L 3.0 MEQ/L 2.8 MEQ/L Chloride Level 107 MEQ/L 107 MEQ/L Carbon Dioxide Level 19.2 MEQ/L 20.6 MEQ/L Anion Gap 12 MEQ/L 11 MEQ/L Blood Urea Nitrogen 24 MG/DL 9 MG/DL Creatinine 0.41 MG/DL 0.50 MG/DL Estimat Glomerular Filtration 209 ML/MIN 166 ML/MIN Rate Random Glucose 158 MG/DL 129 MG/DL Calcium Level 7.2 MG/DL 7.7 MG/DL Protein Corrected Calcium 8.5 MG/DL Phosphorus Level 2.7 MG/DL 1.5 MG/DL Magnesium Level 1.5 MG/DL 1.4 MG/DL Total Protein 4.8 GM/DL Lactic Acid Level 1.4 mmol/L Total Creatine Kinase 23 U/L Troponin I 0.02 NG/ML Thyroid Stimulating Hormone 0.983 uIU/ML 3rd Gen Microbiology Date/Time Procedure Status Source Growth 11/13/16 09:18 Legionella Antigen - Final Complete Urine Catheterized Urine PRESUMPTIVE NEGATIVE FOR LEGIONELLA P... 11/13/16 09:18 Streptococcus pneumoniae Antigen (M - Final Complete Urine Catheterized Urine PRESUMPTIVE NEGATIVE FOR STREPTOCOCCU... 11/13/16 14:50 Aerobic Blood Culture - Preliminary Resulted Blood Peripheral NO GROWTH IN 2 DAYS 11/13/16 14:50 Anaerobic Blood Culture - Preliminary Resulted Blood Peripheral NO GROWTH IN 2 DAYS 11/13/16 14:58 Aerobic Blood Culture - Preliminary Resulted Blood Peripheral NO GROWTH IN 2 DAYS 11/13/16 14:58 Anaerobic Blood Culture - Preliminary Resulted Blood Peripheral NO GROWTH IN 2 DAYS Imaging Last Impressions Chest X-Ray 11/12/16 0908 Signed Impressions: Service Date/Time: Saturday, November 12, 2016 09:30 - CONCLUSION: Left greater than right pleural effusions. Bilateral patchy parenchymal opacity in the right lung apex and left perihilar region. Prashant Valdez MD Chest CT 11/12/16 0000 Signed Impressions: Service Date/Time: Saturday, November 12, 2016 11:23 - CONCLUSION: 1. Bilateral pleural effusions left greater than right. Bilateral dependent parenchymal lung opacity indicating atelectasis. 2. Decrease in size of right hilar and mediastinal mass/enlarged lymph nodes. Prashant Valdez MD Physical Exam GENERAL: Thin built chronically ill appearing male who looks older stated age. SKIN: No generalized rash. But skin extremely fragile infuse of flare of his tape place. HEAD: Atraumatic. Normocephalic. No temporal or scalp tenderness. EYES: Pupils equal round and reactive. Extraocular motions intact. No scleral icterus. No injection or drainage. ENT: Nose without bleeding, purulent drainage or septal hematoma. Throat without erythema, tonsillar hypertrophy or exudate. Uvula midline. Airway patent. NECK: Trachea midline. Supple, nontender, no meningeal signs. CARDIOVASCULAR: Heart sounds audible. No murmur appreciated. RESPIRATORY: Breath sounds decreased left more than right. CT still in place. GASTROINTESTINAL: Abdomen soft, non-tender, nondistended. MUSCULOSKELETAL: Pressure ulcers noted on lower extremity as well as sacral region. No pedal edema. No joint effusions. NEUROLOGICAL: Alert and oriented. Psych could not be assessed. IV line sites with no evidence of infection. Assessment & Plan Remarks Septic shock present on admission. MSSA bacteremia MSSA in urine : ? translocation. Proteus UTI Prior h.o cdiff. Catheter associated UTI present on admission.(Has a chronic indwelling catheter. Was being treated with ciprofloxacin on admission.) Gram negative UTI infection Possible postobstructive or aspiration pneumonia. Left-sided pleural effusion s/p thoracentesis and CT placement Left side. Studies pending likely related to cancer or hemothorax. Rule out Empyema. Acute anemia: Blood loss query GI versus other site. Acute respiratory failure. Mild abnormal LFTs: ? sepsis related Acute metabolic encephalopathy: Likely infection related. Immune compromised host. Non-small cell adenocarcinoma of the lung with obstruction and mediastinal mass. Recs: Follow ruiz cultures Continue Ancef IV for MSSA bacteremia Continue Ceftriaxone IV (for proteus UTI and Aspiration PNA) Continue Flagyl change to oral. Start Oral Vanco Check Cdiff PCR. Patient has prior h.o Cdiff. Check 2 D ECHO May need repeat CT C/A/P if WBC still remains high and no source given MSSA bacteremia would like to r.o dissemination and follow up on Pleural effusion and Pneumonia. Follow cultures Follow thoracentesis studies. Follow clinically. No family in room. Noted pt is full code. Melba Michel MD Nov 15, 2016 18:45
--- NOTE | 2016-11-15 20:03 | EC ---
Study Study Date:11/15/2016 STUDY CONCLUSIONS SUMMARY - Left ventricle: The cavity size was normal. Wall thickness was normal. Systolic function was moderately reduced. The estimated ejection fraction was in the range of 35% to 40%. Wall motion was normal; there were no regional wall motion abnormalities. - Aortic valve: Trace regurgitation. If LV function is below 40, please consider prescribing an ACEI or ARB or document rationale for non-use. PROCEDURE DATA STUDY STATUS: Elective. Procedure: Transthoracic echocardiography. Image quality was good. Scanning was performed from the parasternal, apical, and subcostal acoustic windows. Study completion: The patient tolerated the procedure well. Transthoracic echocardiography. M-mode, complete 2D, complete spectral Doppler, and color Doppler. Patient status: Inpatient. CARDIAC ANATOMY LEFT VENTRICLE: The cavity size was normal. Wall thickness was normal. Systolic function was moderately reduced. The estimated ejection fraction was in the range of 35% to 40%. Wall motion was normal; there were no regional wall motion abnormalities. AORTIC VALVE: Trileaflet; normal thickness leaflets. Doppler: Transvalvular velocity was within the normal range. There was no stenosis. Trace regurgitation. AORTA: Aortic root: The aortic root was normal in size. MITRAL VALVE: Structurally normal valve. Doppler: Transvalvular velocity was within the normal range. There was no evidence for stenosis. Trace regurgitation. Peak gradient: 3mm Hg (D). LEFT ATRIUM: The atrium was normal in size. RIGHT VENTRICLE: The cavity size was normal. Wall thickness was normal. PULMONIC VALVE: Doppler: Transvalvular velocity was within the normal range. There was no evidence for stenosis. No regurgitation. TRICUSPID VALVE: Structurally normal valve. Doppler: Transvalvular velocity was within the normal range. Trace regurgitation. PULMONARY ARTERY: The main pulmonary artery was normal-sized. Systolic pressure was within the normal range. RIGHT ATRIUM: The atrium was normal in size. PERICARDIUM: There was no pericardial effusion. SYSTEMIC VEINS: Inferior vena cava: The vessel was normal in size. BASIC MEASUREMENTS ADULT Normal Left ventricle LV internal dimension, ED, chordal level, 44.4 mm 43-52 PLAX LV internal dimension, ES, chordal level, *41.2 mm 23-38 PLAX Fractional shortening, chordal level, PLAX *7 % >29 LV posterior wall thickness, ED 6.55 mm IVS/LVPW ratio, ED 1.27 <1.3 Ventricular septum Septal thickness, ED 8.33 mm Left atrium Anterior-posterior dimension 33 mm Right ventricle RV internal dimension, ED, PLAX 20.5 mm 19-38 DOPPLER MEASUREMENTS ADULT Normal Main pulmonary artery Pressure, S 28 mm Hg =30 Mitral valve Peak E-wave velocity 82.9 cm/s Peak gradient, D 3 mm Hg Tricuspid valve Regurgitant peak velocity 184 cm/s Peak RV-RA gradient, S 14 mm Hg Maximal regurgitant velocity 184 cm/s Systemic veins Estimated CVP 5 mm Hg Right ventricle RV pressure, S 28 mm Hg <30 LEGEND: Mean values are shown as u=mean value. Asterisk (*) huddleston values outside specified normal range. Amended Quadrat, Terry [id number]
--- NOTE | 2016-11-15 20:48 | MB ---
cc: YISSEL RIVERO M.D. DATE OF CONSULTATION 11/15/2016 REASON FOR CONSULTATION Atrial fibrillation with rapid ventricular response. HISTORY OF PRESENT ILLNESS The patient is a 65-year-old white male with a history of multiple medical problems including recently diagnosed non-small cell cancer of the lung, COPD, CVA, pulmonary embolism, coronary artery disease, paroxysmal atrial fibrillation who was initially admitted with hypotension, fever, confusion, sepsis. Here in hospital he has been in atrial fibrillation with rapid ventricular response. He denies chest pain, shortness of breath, palpitations, dizziness, syncope, near-syncope, paroxysmal nocturnal dyspnea, pedal edema. PAST MEDICAL HISTORY 1. Hypertension. 2. COPD. 3. Two CVAs, the last one approximately 2008 with now residual left-sided weakness. 4. Left lower lobe pulmonary embolism diagnosed June 2016. 5. Coronary artery disease status post ST elevation myocardial infarction and subsequent stenting of the diagonal by Dr. Chao Crouch 07/08/2016. 6. [id number]-[id number] lung cancer status post radiation therapy and chemotherapy. He is to receive further chemotherapy in the future. 7. Paroxysmal atrial fibrillation apparently diagnosed July 2016. PAST SURGICAL HISTORY 1. Irrigation and debridement of necrotic right calf muscle tissue 06/22/2015. 2. Appendectomy. 3. Left inguinal hernia repair x2. 4. Tonsillectomy. MEDICATIONS His current cardiac medications: 1. Amiodarone drip. 2. Plavix 75 mg p.o. daily. 3. Heparin drip. ALLERGIES NO KNOWN DRUG ALLERGIES. FAMILY HISTORY Noncontributory. SOCIAL HISTORY The patient quit smoking a few months ago. He denies alcohol abuse. REVIEW OF SYSTEMS As in the history of present illness otherwise negative or noncontributory. He also denies headache, abdominal pain, melena, dyspepsia, bright red blood per rectum, nausea, vomiting. PHYSICAL EXAMINATION VITAL SIGNS: His blood pressure 128/95 with a pulse of 123. Respiratory rate 24. GENERAL: He is a well-developed, well-nourished white male in no acute distress. HEENT/NECK: Jugular venous pressure is normal. Carotid pulses are 2+ bilaterally and without bruits. LUNGS: Examination of the chest reveals clear lung donaldson anteriorly. CARDIOVASCULAR: On cardiac examination he has a tachycardic, irregular rhythm without S3 or murmur. ABDOMEN: He has a soft, nontender abdomen. Bowel sounds are present. There is no definite hepatosplenomegaly. EXTREMITIES: Examination of the extremities reveals no clubbing, cyanosis or edema. LABORATORY DATA Includes WBC 42.6, hemoglobin 9.7, platelets 317. Potassium 2.8, BUN 9, creatinine 0.50, magnesium 1.4. PTT 66.7. IMPRESSION Elevated heart rates, atrial fibrillation in this 65-year-old white male with a history of coronary artery disease, pulmonary embolism, [id number] lung cancer, CVA, COPD, paroxysmal atrial fibrillation. At this time he continues to have heart rates in 120s. For the most part he is asymptomatic. There is no definite evidence for recurrent acute coronary syndrome. The etiology of the elevated heart rates may be multifactorial including sepsis, dehydration, pulmonary embolism, respiratory insufficiency. An echocardiogram about 3 months ago reportedly showed ejection fraction of 60%. There was no definite evidence for congestive heart failure. RECOMMENDATIONS 1. Consider trying to resume intravenous Cardizem. 2. Intravenous digoxin. 3. Continue intravenous amiodarone. 4. Dual antiplatelet therapy for his history of drug-eluting stent; would resume aspirin and continue Plavix. 5. Replete his potassium. MD SUKI Almonte/DAVINA /4:23 PM /7:48 PM HALINA
[2016-11-15] MEDS ORDERED: AMIODARONE INJ 150 MG in DEXTROSE 5% IN WATER 100ML INJ 97 ML IV ONE ×2 (21:15)
[2016-11-15] MEDS: TEMAZEPAM 7.5 MG CAP PO PRN (22:47)
[2016-11-16] VITALS (14 sets, daily range): BP systolic 107–135; BP diastolic 67–87; PULSE 81–95; RESP 18–25; TEMP 97–97.9; O2SAT 92–99
[2016-11-16] MEDS: RESP: ALBUTEROL 2.5 MG/IPRATROPIUM 0.5 MG NEB (SCH) NEB ×2 (04:00→10:15)
[2016-11-16] MEDS: CHLORHEXIDINE GLUCONATE 2 % 1 PACK (2 CLOTHS)(taper/protocol) TOP SCH (04:00)
[2016-11-16] MEDS: INSULIN NovoLIN REGULAR SUPPLEMENTAL SCALE SQ SCH ×4 (04:15→22:09)
--- NOTE | 2016-11-16 05:41 | RADRPT ---
EXAM DATE/TIME: 11/16/2016 03:48 [place] COMPARISON: CHEST SINGLE AP, November 15, 2016, 8:10. INDICATIONS : Shortness of breath, possible pulmonary disease. MEDICAL HISTORY : Hypertension. SURGICAL HISTORY : Appendectomy. ENCOUNTER: Subsequent ACUITY: 4 - 6 days PAIN SCORE: 0/10 LOCATION: Bilateral chest FINDINGS: The heart size is normal. The lungs demonstrate diffuse consolidation. Bilateral effusions are presen t. There is a left chest tube in place. There is a left subclavian line good position. CONCLUSION: Diffuse consolidation and bilateral effusions likely related to diffuse edema. This appears worse on the current exam. Sy Edwards MD on November 16, 2016 at 5:38 Board Certified Radiologist. This report was verified electronically.
[2016-11-16] MEDS: HYDROCORTISONE SOD SUCCINATE 100 MG VIAL IV PUSH SCH ×3 (05:50→22:02)
[2016-11-16] MEDS: metroNIDAZOLE 500 MG TAB PO SCH ×3 (05:50→22:02)
[2016-11-16 07:12] LABS: APTT (PATIENT) 36.9 SEC (24.3-30.1)
[2016-11-16 07:20] LABS: HEMATOCRIT 27.3 % (39.0-51.0); MEAN CELL VOLUME 87.5 FL (80.0-100.0); MEAN CORPUSCULAR HEMOGLOBIN 28.7 PG (27.0-34.0); MEAN CORPUSCULAR HGB CONC 32.8 % (32.0-36.0); PLATELET COUNT 242 TH/MM3 (150-450); RED BLOOD COUNT 3.12 MIL/MM3 (4.50-5.90); WHITE BLOOD COUNT 35.7 TH/MM3 (4.0-11.0)
[2016-11-16 07:21] LABS: HEMO FLAGS AUTO DIFF
[2016-11-16] MEDS: ceFAZolin 2 GM PREMIX 50 ML IV SCH ×2 (08:00→16:00)
[2016-11-16 08:05] LABS: BICARBONATE 19.9 MEQ/L (21.0-32.0); MAGNESIUM 1.7 MG/DL (1.5-2.5)
[2016-11-16 08:09] LABS: ACANTHOCYTES OCC (NORMAL); BANDS 6 % (0-6); METAMYELOCYTES 1 % (0-1); MYELOCYTES 1 % (0-0); NEUTROPHIL # MANUAL DIFF 35.7 TH/MM3 (1.8-7.7); PLATELET ESTIMATE SMEAR NORMAL (NORMAL); PLATELET MORPHOLOGY NORMAL (NORMAL); POLYS (SEG NEUTROPHILS) 91 % (16-70); PROMYELOCYTES 1 % (0-0); SCAN/DIFF FINAL DIFF MANUAL; WBC DIFF SAMPLE 100
--- NOTE | 2016-11-16 08:22 | PD.CARD.PN ---
Subjective Subjective Remarks Denies CP, dyspnea, dizziness, palpitations, nausea. Slept well. Objective Medications Item Value Date Time Diltiazem HCl 125 125 ml @ 0 mls/hr 11/15/16 1630 mg/Sodium Chloride TITRATE/IV 11/15/162218 Amiodarone HCl 250 ml @ 0 mls/hr 11/15/16 0745 450 mg/Dextrose CONTINUOUS/IV 11/15/162218 Clopidogrel 75 mg 11/13/16 0900 Bisulfate DAILY/PO 11/15/16 0828 (Plavix) Vital Signs / I&O Vital Signs Date Time Temp Pulse Resp B/P Pulse Ox O2 Delivery O2 Flow Rate FiO2 11/16/16 08:17 92 Nasal Cannula 2.00 11/16/16 06:00 90 11/16/16 04:00 89 11/16/16 04:00 93 Nasal Cannula 4.00 11/16/16 04:00 97.7 89 25 111/71 93 11/16/16 02:00 87 11/16/16 00:00 87 11/16/16 00:00 97.0 87 19 107/67 95 11/16/16 00:00 95 Nasal Cannula 4.00 11/15/16 23:00 91 11/15/16 23:00 91 11/15/16 22:00 91 11/15/16 21:39 94 Nasal Cannula 4.00 11/15/16 20:00 89 11/15/16 20:00 93 Nasal Cannula 4.00 11/15/16 20:00 97.0 89 23 124/73 93 11/15/16 18:00 129 11/15/16 16:00 97.7 129 28 109/68 90 11/15/16 16:00 129 11/15/16 16:00 93 Nasal Cannula 4.00 11/15/16 14:00 125 11/15/16 12:00 98.1 131 26 123/83 94 11/15/16 12:00 94 Nasal Cannula 4.00 11/15/16 12:00 131 11/15/16 10:00 131 I/O 11/15/16 11/15/16 11/15/16 11/16/16 11/16/16 11/16/16 07:00 15:00 23:00 07:00 15:00 23:00 Intake Total 535 ml 1042 ml 730 ml 261 ml Output Total 210 ml 150 ml 250 ml 160 ml Balance 325 ml 892 ml 480 ml 101 ml Intake Oral 50 ml 100 ml 30 ml IV Total 485 ml 942 ml 700 ml 261 ml Output Urine Total 200 ml 150 ml 250 ml 150 ml Chest Tube Drainage Total 10 ml 10 ml # Bowel Movements 0 Physical Exam GENERAL: Well developed, well nourished. No acute distress. HEENT: Jugular venous pressure is normal. CHEST: Lungs clear to auscultation anteriorly. CARDIAC: Regular rate and rhythm without S3, S4, or murmur. ABDOMEN: Soft, nontender, no hepatosplenomegaly. Bowel sounds present. EXTREMITIES: No clubbing, cyanosis, or edema. Laboratory Laboratory Tests Test 11/15/16 11/15/16 11/16/16 16:30 22:00 05:40 Blood Gas Puncture Site RT RADIAL Blood Gas Patient Temperature 98.6 Blood Gas HCO3 18 mmol/L Blood Gas Base Excess -5.0 mmol/L Blood Gas Oxygen Saturation 90 % Arterial Blood pH 7.52 Arterial Blood Partial 22 mmHg Pressure CO2 Arterial Blood Partial 60 mmHg Pressure O2 Arterial Blood Oxygen Content 13.2 Vol % Arterial Blood 1.5 % Carboxyhemoglobin Arterial Blood Methemoglobin 1.0 % Blood Gas Hemoglobin 10.5 G/DL Oxygen Delivery Device NASAL CANNULA Blood Gas Liter Flow 4 L/M Potassium Level 3.2 MEQ/L White Blood Count 35.7 TH/MM3 Red Blood Count 3.12 MIL/MM3 Hemoglobin 9.0 GM/DL Hematocrit 27.3 % Mean Corpuscular Volume 87.5 FL Mean Corpuscular Hemoglobin 28.7 PG Mean Corpuscular Hemoglobin 32.8 % Concent Red Cell Distribution Width 19.0 % Platelet Count 242 TH/MM3 Mean Platelet Volume 6.9 FL Neutrophils (%) (Auto) % Lymphocytes (%) (Auto) % Monocytes (%) (Auto) % Eosinophils (%) (Auto) % Basophils (%) (Auto) % Neutrophils # (Auto) TH/MM3 Lymphocytes # (Auto) TH/MM3 Monocytes # (Auto) TH/MM3 Eosinophils # (Auto) TH/MM3 Basophils # (Auto) TH/MM3 CBC Comment AUTO DIFF Differential Total Cells 100 Counted Neutrophils % (Manual) 91 % Band Neutrophils % 6 % Neutrophils # (Manual) 35.7 TH/MM3 Metamyelocytes 1 % Myelocytes 1 % Promyelocytes 1 % Differential Comment FINAL DIFF MANUAL Platelet Estimate NORMAL Platelet Morphology Comment NORMAL Acanthocytes OCC Activated Partial 36.9 SEC Thromboplast Time Sodium Level 137 MEQ/L Chloride Level 105 MEQ/L Carbon Dioxide Level 19.9 MEQ/L Anion Gap 12 MEQ/L Blood Urea Nitrogen 19 MG/DL Creatinine 0.43 MG/DL Estimat Glomerular Filtration 197 ML/MIN Rate Random Glucose 119 MG/DL Calcium Level 7.2 MG/DL Phosphorus Level 2.5 MG/DL Magnesium Level 1.7 MG/DL Assessment and Plan Problem List: (1) Paroxysmal atrial fibrillation Assessment and Plan: Back in NSR with occasional PACs. Recommend continue IV Cardizem as BP's tolerate. Continue IV Amiodarone. Thromboembolic risk overall low. Rec daily baby aspirin. (2) CAD (coronary artery disease) Assessment and Plan: History of STEMI, stent diagonal 06/2016. Stable. No recurrent angina. EF reportedly normal on 07/2016 echo. Code Status full code Discussed Condition With patient Problem Qualifiers (1) CAD (coronary artery disease): Qualified Code: I25.10 - Coronary artery disease involving [place] coronary artery of [place] heart without angina pectoris Rene Kaiser MD Nov 16, 2016 08:22
[2016-11-16 08:23] LABS: CALCIUM-PROTEIN CORRECTED 8.6 MG/DL (8.5-10.1)
[2016-11-16 08:26] LABS: POTASSIUM 2.9 MEQ/L (3.5-5.1)
[2016-11-16] MEDS: TIOTROPIUM BROMIDE 18 MCG INH INH SCH (09:00)
[2016-11-16] MEDS: cefTRIAXone INJ 2,000 MG in SODIUM CHLORIDE 0.9% INJ 100 ML IV SCH (11:00)
--- NOTE | 2016-11-16 11:05 | PD.ONC.PN ---
Subjective Subjective Remarks Afebrile overnight. Patient with at bedside. He is waiting to go for barium swallow today. Objective Data Date Time Temp Pulse Resp B/P Pulse Ox O2 Delivery O2 Flow Rate FiO2 11/16/16 10:17 95 Nasal Cannula 3.00 11/16/16 08:17 92 Nasal Cannula 2.00 11/16/16 06:00 90 11/16/16 04:00 89 11/16/16 04:00 93 Nasal Cannula 4.00 11/16/16 04:00 97.7 89 25 111/71 93 11/16/16 02:00 87 11/16/16 00:00 87 11/16/16 00:00 97.0 87 19 107/67 95 11/16/16 00:00 95 Nasal Cannula 4.00 11/15/16 23:00 91 11/15/16 23:00 91 11/15/16 22:00 91 11/15/16 21:39 94 Nasal Cannula 4.00 11/15/16 20:00 89 11/15/16 20:00 93 Nasal Cannula 4.00 11/15/16 20:00 97.0 89 23 124/73 93 11/15/16 18:00 129 11/15/16 16:00 97.7 129 28 109/68 90 11/15/16 16:00 129 11/15/16 16:00 93 Nasal Cannula 4.00 11/15/16 14:00 125 11/15/16 12:00 98.1 131 26 123/83 94 11/15/16 12:00 94 Nasal Cannula 4.00 11/15/16 12:00 131 11/16/16 11/16/16 11/16/16 07:00 15:00 23:00 Intake Total 261 ml Output Total 160 ml Balance 101 ml Result Diagram: 11/16/16 0540 11/16/16 0540 Laboratory Results Laboratory Tests Test 11/15/16 11/15/16 11/16/16 16:30 22:00 05:40 Blood Gas Puncture Site RT RADIAL Blood Gas Patient Temperature 98.6 Blood Gas HCO3 18 mmol/L Blood Gas Base Excess -5.0 mmol/L Blood Gas Oxygen Saturation 90 % Arterial Blood pH 7.52 Arterial Blood Partial 22 mmHg Pressure CO2 Arterial Blood Partial 60 mmHg Pressure O2 Arterial Blood Oxygen Content 13.2 Vol % Arterial Blood 1.5 % Carboxyhemoglobin Arterial Blood Methemoglobin 1.0 % Blood Gas Hemoglobin 10.5 G/DL Oxygen Delivery Device NASAL CANNULA Blood Gas Liter Flow 4 L/M Potassium Level 3.2 MEQ/L 2.9 MEQ/L White Blood Count 35.7 TH/MM3 Red Blood Count 3.12 MIL/MM3 Hemoglobin 9.0 GM/DL Hematocrit 27.3 % Mean Corpuscular Volume 87.5 FL Mean Corpuscular Hemoglobin 28.7 PG Mean Corpuscular Hemoglobin 32.8 % Concent Red Cell Distribution Width 19.0 % Platelet Count 242 TH/MM3 Mean Platelet Volume 6.9 FL Neutrophils (%) (Auto) % Lymphocytes (%) (Auto) % Monocytes (%) (Auto) % Eosinophils (%) (Auto) % Basophils (%) (Auto) % Neutrophils # (Auto) TH/MM3 Lymphocytes # (Auto) TH/MM3 Monocytes # (Auto) TH/MM3 Eosinophils # (Auto) TH/MM3 Basophils # (Auto) TH/MM3 CBC Comment AUTO DIFF Differential Total Cells 100 Counted Neutrophils % (Manual) 91 % Band Neutrophils % 6 % Neutrophils # (Manual) 35.7 TH/MM3 Metamyelocytes 1 % Myelocytes 1 % Promyelocytes 1 % Differential Comment FINAL DIFF MANUAL Platelet Estimate NORMAL Platelet Morphology Comment NORMAL Acanthocytes OCC Activated Partial 36.9 SEC Thromboplast Time Sodium Level 137 MEQ/L Chloride Level 105 MEQ/L Carbon Dioxide Level 19.9 MEQ/L Anion Gap 12 MEQ/L Blood Urea Nitrogen 19 MG/DL Creatinine 0.43 MG/DL Estimat Glomerular Filtration 197 ML/MIN Rate Random Glucose 119 MG/DL Calcium Level 7.2 MG/DL Protein Corrected Calcium 8.6 MG/DL Phosphorus Level 2.5 MG/DL Magnesium Level 1.7 MG/DL Total Protein 4.6 GM/DL Culture Results Microbiology Date/Time Procedure Status Source Growth 11/13/16 14:50 Aerobic Blood Culture - Preliminary Resulted Blood Peripheral NO GROWTH IN 2 DAYS 11/13/16 14:50 Anaerobic Blood Culture - Preliminary Resulted Blood Peripheral NO GROWTH IN 2 DAYS 11/13/16 14:58 Aerobic Blood Culture - Preliminary Resulted Blood Peripheral NO GROWTH IN 2 DAYS 11/13/16 14:58 Anaerobic Blood Culture - Preliminary Resulted Blood Peripheral NO GROWTH IN 2 DAYS Imaging Studies Last 24 hours Impressions Chest X-Ray 11/16/16 0000 Signed Impressions: Service Date/Time: October 03:48 - CONCLUSION: Diffuse consolidation and bilateral effusions likely related to diffuse edema. This appears worse on the current exam. Sy Edwards MD Administered Medications Medications (Trade) Dose Ordered Sig/Elvia Route PRN Reason Start Time Stop Time Status Last Admin Dose Admin IV Flush (NS Flush) 2 ml UNSCH PRN IV FLUSH FLUSH AFTER USING IV ACCESS 11/12/16 11:00 11/15/16 08:28 IV Flush (NS Flush) 2 ml BID IV FLUSH 11/12/16 21:00 11/15/16 22:21 Acetaminophen (Tylenol) 650 mg Q6H PRN PO PAIN 1-10 AND/OR FEVER >101F 11/12/16 12:00 11/13/16 21:07 Pantoprazole Sodium (Protonix Inj) 40 mg DAILY IV 11/13/16 09:00 11/15/16 08:27 Tiotropium [place] (Spiriva Inh) 18 mcg DAILY INH 11/13/16 09:00 11/15/16 08:29 Clopidogrel Bisulfate (Plavix) 75 mg DAILY PO 11/13/16 09:00 11/15/16 08:28 Hydrocortisone Sodium Succinate 100 mg 100 mg Q8HR IV PUSH 11/12/16 14:00 11/16/16 05:50 Heparin Sodium/ Dextrose 250 ml @ 0 mls/hr TITRATE IV 11/12/16 11:15 11/15/16 15:16 Norepinephrine Bitartrate 250 ml @ 0 mls/hr TITRATE IV 11/12/16 13:30 11/12/16 18:48 Vasopressin/ Dextrose (Pitressin Inj/ D5W 100 ml Inj) 100 ml @ 0 mls/hr Q0M IV 11/12/16 13:20 11/14/16 15:43 Miscellaneous Information Patient in critical care unit? Ass... [id number] XX 11/12/16 18:30 11/12/16 18:30 Chlorhexidine Gluconate 3 pack 3 pack DAILY@04 TOP 11/13/16 04:00 11/17/16 04:01 11/16/16 04:00 Potassium Chloride 100 ml @ 50 mls/hr Q2H PRN IV For Potassium 2.8 - 3.2 mEq/L 11/13/16 09:45 11/15/16 11:25 Magnesium Sulfate 2 gm/Sodium Chloride 100 ml @ 50 mls/hr UNSCH PRN IV For Magnesium 1.2 - 1.6 mg/dL 11/13/16 09:45 11/15/16 16:59 Sodium Phosphate 30 mmol/Sodium Chloride 250 ml @ 42 mls/hr UNSCH PRN IV For Phosphorus < 2.5 mg/dL 11/13/16 09:45 11/15/16 16:59 Potassium Phosphate/Sodium Chloride (Potassium Phosphate Inj/NS 250 ml Inj) 260 ml @ 42 mls/hr UNSCH PRN IV SEE LABEL COMMENTS 11/13/16 09:45 11/13/16 13:05 Insulin Human Regular 1 1 Q6H SQ 11/13/16 10:15 11/15/16 17:48 Diltiazem HCl 125 mg/Sodium Chloride 125 ml @ 0 mls/hr TITRATE IV 11/14/16 00:30 Hold 11/14/16 01:30 Cefazolin Sodium/ Dextrose (Ancef 2 Gm Premix) 50 ml @ 100 mls/hr Q8H IV 11/14/16 08:00 11/15/16 22:17 Metronidazole 500 mg 500 mg Q8HR PO 11/14/16 14:00 11/16/16 05:50 Ceftriaxone Sodium 2000 mg/ Sodium Chloride 100 ml @ 200 mls/hr Q24H IV 11/14/16 11:00 11/15/16 11:26 Phenylephrine HCl 40 mg/Dextrose 500 ml @ 0 mls/hr TITRATE IV 11/14/16 17:15 11/15/16 12:54 Amiodarone HCl/ Dextrose (Cordarone Inj/ D5W ([place]) Inj) 250 ml @ 0 mls/hr CONTINUOUS IV 11/15/16 07:45 11/15/16 22:19 Vancomycin HCl 125 mg 125 mg QID PO 11/15/16 13:00 11/15/16 22:19 Diltiazem HCl/ Sodium Chloride (Cardizem Inj/NS Inj) 125 ml @ 0 mls/hr TITRATE IV 11/15/16 16:30 11/15/16 22:19 Temazepam (Restoril) 7.5 mg HS PRN PO SLEEP 11/15/16 22:45 11/15/16 22:47 Objective Remarks GENERAL: Chronically ill male, supine in bed. Cheerful today. SKIN: Warm and dry. HEAD: Normocephalic. EYES: No injection or drainage. NECK: Supple, trachea midline. CARDIOVASCULAR: IRR RESPIRATORY: scattered rhonchi in anterior lung [place]. GASTROINTESTINAL: Abdomen soft, non-tender, nondistended. EXTREMITIES: No cyanosis MUSCULOSKELETAL: severely deconditioned. NEUROLOGICAL: awake and alert. normal speech. Assessment/Plan Problem List: (1) Septic shock Status: Acute Plan: --currently on vasopressors + IV abx --BC no growth --CT chest showed bilateral pleural effusions, left greater than right. 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 --was some improvement of his tumor bulk with concurrent chemotherapy and radiation. --recently seen in the clinic and has declining PFS (3) Pleural effusion Status: Acute Plan: --could be cardiac vs malignant -- If the effusions are malignant, then he will have Stage IV disease. (4) Normocytic anemia Status: Acute Plan: -- recommend keeping his hemoglobin greater than 8. (5) Afib Status: Chronic Plan: --on cardizem drip --on heparin gtt --cardiology following. Assessment 65y/o with NSCLC admitted with sepsis. h/o tobacco abuse. COPD. Hypertension. Hyperlipidemia. 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 Pulmonary embolism. Peripheral vascular disease status post revascularization of the lower extremities. History of coronary artery disease/[place], status post cardiac catheterization with PCI and drug eluding stent. Plan 1. continue supportive care 2. no transfusion needed at present 3. I had a discussion with patient and at bedside regarding code status. We discussed what it means to be a full code, including shock, ACLS drugs, chest compressions and potential intubation. They indicated they were not aware what full code meant and seemed to want more time to process the information. The indicated to me that she had been told by family members that she should make the patient a "DNR" but wasn't really sure what it meant. I talked with them about the patient's multiple comorbidities and extremely poor prognosis. I recommended a no code status given these multiple comorbidities and diagnosis of NSCLC, but reiterated the decision was Mr. Trujillo 's to make. They expressed appreciation for the conversation. I offered to have the palliative care service sit down and talk with both of them about code status further and overall goals of care. They seemed very interested in this, so I have placed a consult to palliative care. d/w Dr. Dan, patient, patient's nurse Attending Statement The exam, history, and the medical decision-making described in the above note were completed with the assistance of the mid-level provider. I reviewed and agree with the findings presented. I attest that I had a [id number] encounter with the patient on the same day, and personally performed and documented my assessment and findings in the medical record. poor prognosis.Wants to be DNR. palliative care consulted. appreciate their assistance. Long discussion with patient and Lizbeth Cameron Nov 16, 2016 11:05 Rj Monteiro MD Nov 16, 2016 20:14
[2016-11-16] MEDS: POTASSIUM CHLOR 20 MEQ PREMIX 100 ML IV PRN (11:10)
[2016-11-16] MEDS: SODIUM CHLORIDE 0.9% FLUSH 5 ML FLUSH IV FLUSH SCH ×2 (11:10→22:04)
[2016-11-16] MEDS: VANCOMYCIN 500 MG VIAL (FOR ORAL USE ONLY) PO SCH ×4 (11:11→22:03)
[2016-11-16] MEDS: ASPIRIN EC 81 MG TABEC PO SCH (11:11)
[2016-11-16] MEDS: CLOPIDOGREL 75 MG TAB PO SCH (11:11)
[2016-11-16] MEDS: PANTOPRAZOLE SODIUM 40 MG VIAL IV SCH (11:12)
--- NOTE | 2016-11-16 15:22 | HHI.CCPN ---
Subjective Remarks/Hospital Course This is a 64-year-old male with history of COPD, hypertension, coronary artery disease, STEMI on 07/08/16 s/p PCI and DELMY (Dr. Crouch), history of C. difficile colitis, non-small cell lung cancer receiving chemoradiation per Dr. Monteiro, history of pulmonary embolism on Lovenox who was admitted to hospital recently from 07/08-08/31/16 with above diagnoses. During that admission he was noted to have a mediastinal and lung mass which was invading bilateral mainstem bronchi- subsequently diagnosed as a non-small cell lung cancer(adenocarcinoma). He had complete atelectasis of the right lung last admission which required bronchoscopy 2. With chemoradiation obstruction improved with resolution of atelectasis. [facility], hypotension, confusion. Apparently patient was to be started on antibiotics for a UTI however prior to starting the antibiotics, he was found to be profoundly hypotensive, confused and was sent to ER. The patient also was noted to have diarrhea. His initial systolic blood pressure was in the 70s, rectal temperature of 100.4 and also tachycardic with a heart rate in 100's. Source of infection seems to be UTI, though HCAP cannot be ruled out. X-ray and CT of the chest shows bilateral pleural effusions left larger than right associated with infiltrate/atelectasis. He has multiple skin ulcers including his sacral area and his bilateral ankles. Patient received 3 L normal saline bolus with improvement in blood pressure. Levophed ordered. I have started patient on stress dose steroids as he was receiving pred[facility]one [facility] . Patient received Zosyn in the ED. I will place patient on cefepime, Flagyl (hx of C Diff) and IV vancomycin. Infectious disease consulted for septic shock in an immunocompromised patient. 11/13 Patient is on 35% VM, afebrile. Off Levophed 11/14 Patient was started on Cardizem drip 15mg/hr overnight in addition was given Lopressor 2.5mg IV x1 for tachycardia. Afebrile. On Heparin drip. s/p transfusion 1u PRBC for Hgb 6.9 now 8.1. 11/15 Patient is on Neosyn 40 mics, off vasopressin. He was given Amiodarone bolus overnight for Afib with RVR HR remains 120-130's. Afebrile. 11/16: Remains on Cardizem and amiodarone. Off vasopressors. Patient's CXR appears worse. He does not appear in distress. Palliative care consulted and family and patient will decide on hospice after d/w Dr. Monteiro Objective Vital Signs Date Time Temp Pulse Resp B/P Pulse Ox O2 Delivery O2 Flow Rate FiO2 11/16/16 10:17 95 Nasal Cannula 3.00 11/16/16 06:00 90 11/16/16 04:00 97.7 25 111/71 11/13/16 09:28 35 Intake and Output 11/15/16 11/15/16 11/16/16 08:00 16:00 00:00 Intake Total 535 ml 1042 ml 730 ml Output Total 210 ml 150 ml 250 ml Balance 325 ml 892 ml 480 ml Result Diagram: 11/16/16 0540 11/16/16 0540 Other Results Laboratory Tests Test 11/15/16 16:30 Blood Gas Puncture Site RT RADIAL Blood Gas Patient Temperature 98.6 Blood Gas HCO3 18 mmol/L (22-26) Blood Gas Base Excess -5.0 mmol/L (-2-2) Blood Gas Oxygen Saturation 90 % (90-100) Arterial Blood pH 7.52 (7.380-7.420) Arterial Blood Partial 22 mmHg (38-42) Pressure CO2 Arterial Blood Partial 60 mmHg Pressure O2 (61-120) Arterial Blood Oxygen Content 13.2 Vol % (12.0-20.0) Arterial Blood 1.5 % (0-4) Carboxyhemoglobin Arterial Blood Methemoglobin 1.0 % (0-2) Blood Gas Hemoglobin 10.5 G/DL (12.0-16.0) Oxygen Delivery Device NASAL CANNULA Blood Gas Liter Flow 4 L/M Imaging Last Impressions Chest X-Ray 11/14/16 0600 Signed Impressions: Service Date/Time: Monday, November 14, 2016 05:00 - CONCLUSION: Diffuse increased density likely representing a combination of edema, bilateral effusions, and some degree of consolidation and/or atelectasis at the mid and lower lungs. Sy Edwards MD Chest CT 11/12/16 0000 Signed Impressions: Service Date/Time: Saturday, November 12, 2016 11:23 - CONCLUSION: 1. Bilateral pleural effusions left greater than right. Bilateral dependent parenchymal lung opacity indicating atelectasis. 2. Decrease in size of right hilar and mediastinal mass/enlarged lymph nodes. Prashant Valdez MD Objective Remarks GENERAL: Elderly ill cachectic gentleman who appears pale, critically ill, SKIN: Warm and dry. HEAD: Atraumatic. Normocephalic. EYES: No scleral icterus. No injection or drainage. ENT: No nasal bleeding or discharge. Dry mucous membranes NECK: Trachea midline. No JVD. CARDIOVASCULAR: Tachycardic with regular rhythm. No murmur appreciated. On Cardizem and amiodarone infusion RESPIRATORY: No accessory muscle use, diminished breath sound at bases. GASTROINTESTINAL: Abdomen soft, cachectic, non-tender, nondistended. BACK/SKIN: The patient has stage I - II pressure sores on his presacral area and ankles. MUSCULOSKELETAL: Bilateral ankle pressure wounds. NEUROLOGICAL: Opens eyes to command and follows commands. Moves all extremities Urinary Catheter: Yes Assessment to: Continue Vascular Central Line Catheter: Yes Assessment to: Continue A/P Assessment and Plan NEURO: Acute metabolic encephalopathy Previous CVA -Minimize sedation, monitor neuro status closely. Awake and alert RESP: Respiratory insufficiency Left more than right pleural effusion Possible HCAP COPD Adenocarcinoma of the lung -Wean FiO2 to keep saturation more than 90% -DuoNeb every 6 hours scheduled and when necessary -On chronic prednisone, on Solucortef 100mg IV Q8 -s/p CT placement 11/12 for left pleural effusion-monitor CT drainage. Exudative effusion per LDH criteria. -Drainage is minimal, remove chest tube in 24 hours -Chemoradiation per Dr. Monteiro CV: Afib with RVR Hypotension - Coronary artery disease Status post STEMI 07/08/16 with PCI/DELMY to D1 off Neosyn monitor HR and BP keep MAP>65mmHg. Lactic acid 1.4 today Continue with Amiodarone drip and Cardizem drip discussed with Dr. Crouch. Echo 08/15 EF 55-60% Continue Plavix GI: Diarrhea History C. difficile colitis - Diet per speech recommendation - On IV IV Protonix : -Monitor renal function, I/O's, electrolytes replacement per protocol ID: Staph Bacteremia Septic shock UTI Possible HCAP History of C. difficile colitis -Continue with abx per ID- Dr. Fabien Michel ( Rocephin, Cefazolin, Flagyl) PO Vanco 125mg QID. -monitor for signs of infections ( Fever, WBC) repeat CBC, check C-diff PCR -BC 11/13: NGTD -BC 11/12 : Staph Aureus -Urine cx 11/12: Proteus Mirabilis, staph species -Strep pneumonia and Legionella urinary Ag negative -Fluid cx 11/12: NGTD HEME: Non-small cell lung cancer Pulmonary embolism diagnosed on 07/08/16 -Monitor CBC, -Had been started on chemoradiation therapy Dr. Monteiro -Heme onc is following- Dr. Monteiro ENDO: -Electrolyte replacement protocol, sliding scale insulin for glycemic control PROPH: -Bilateral lower extremity SCDs. IV heparin, IV Protonix LINES: -Utilize peripheral IVs, Left subclavian CVP placed 11/12 Level 2 Patient may opt for Hospice after discussion with Shelia Peralta MD Nov 16, 2016 15:22 Shelia Dan MD Nov 16, 2016 15:22
--- NOTE | 2016-11-16 15:27 | PD.CONS ---
Consult Service Palliative Care Consult Requested By Claudine Barroso Primary Care Physician Pravin Calvillo MD . Reason for Consultation a. To assist with evaluation and management of symptoms including: Dyspnea b. To assist medical decision maker(s) with: better understanding of current medical conditions; weighing benefits/burdens of medical treatment options; making medical treatment decisions. . HPI History of Present Illness This 65-year-old male, with a past history of metastatic non-small cell adenocarcinoma of lung June 2016, chemotherapy and radiation, anemia, COPD, CVA, PVD, failure to thrive, and DVT/PE, presented to the hospital from his halfway with altered mental status, fever, and hypotension on 11/12/16. The patient was admitted here 07/08/16 because of chest pain and shortness of breath, and he was found to have an acute MS and underwent stenting. At the same time, he was noted to have a large left lung mass with adenopathy, and biopsy revealed non-small cell adenocarcinoma. He began radiation therapy on , and began cisplatin/Taxotere soon thereafter. He had a prolonged hospitalization, but was finally discharged to a nursing home facility on 08/31/16. Some rehab/therapy was attempted, but the patient and his report that he was never able to stand on his own or ambulate again. His most recent chemotherapy treatment was 10 or 11 days ago. He remained in the halfway until becoming ill and presenting to the emergency department now with signs of sepsis. In the emergency department, findings included: * Confusion, hypotension, fever, multiple skin tears, cachexia * Temp 100.4, pulse 104, respirations 17, and initial blood pressure in the 70s. Oxygen saturation was 98% on a nonrebreather * White count 4.4, hemoglobin 7.3 * Sodium 133, creatinine 1.09, albumin 1.5 * Lactic acid 2.4 * Urinalysis consistent with UTI * Chest x-ray revealed the mass, adenopathy, and new pleural effusions bilateral Resuscitation was begun with fluids, and antibiotics were started after cultures were obtained. Blood cultures eventually grew staph aureus, and the urine grew Proteus. The patient required pressor drugs intermittently the first day or 2. He remained somewhat hypoxic, requiring initially nonrebreather , then a Ventimask at 35%, and now nasal cannula oxygen at 4 L. An echocardiogram revealed that his ejection fraction was down to 35-40%. He developed rapid atrial fib, and that was controlled with Cardizem. He had a thoracentesis, and then a left thoracostomy tube was placed. The patient remained profoundly weak, and the chest x-ray today appeared worse, with more consolidation and persistent effusions. Palliative Care was consulted to assist with symptom management, and to enter into discussions with the patient and his regarding the current medical problems, the poor overall prognosis, and the benefits and burdens of the various treatment choices going forward. . Function/Cognitive Trajectory Prior to the patient's July 08, 2016 admission, he had become somewhat weaker but was still ambulating independently. The patient and his report that he has not been able to stand or walk since that admission. In fact, the reports, "his legs are basically gone" and profoundly weak. He continues to lose weight. The confusion he had when he was admitted with the sepsis seems to have cleared now. . Review of Systems Constitutional: COMPLAINS OF: Fever, Weight loss Endocrine: DENIES: Polyuria Eyes: DENIES: Eye inflammation Ears, nose, mouth, throat: DENIES: Epistaxis Respiratory: COMPLAINS OF: Cough, Shortness of breath Cardiovascular: COMPLAINS OF: Dyspnea on Exertion, DENIES: Chest pain Gastrointestinal: DENIES: Bloody stools, Diarrhea, Vomiting Genitourinary: DENIES: Hematuria Musculoskeletal: DENIES: Back pain, Neck pain Integumentary: DENIES: Rash Hematologic/Lymphatics: COMPLAINS OF: Bruising (arms and legs) Immunologic/Allergic: DENIES: Urticaria Neurologic: DENIES: Localized weakness, Seizures Psychiatric: COMPLAINS OF: Confusion, Depression, DENIES: Hallucinations Past Family Social History Coded Allergies: No Known Allergies (Unverified , 07/08/16) Past Medical History * Septic shock * Hypoxic respiratory failure * Metastatic adenocarcinoma of lung, status post radiation and chemotherapy * New pleural effusions, s/p thoracentesis and thoracostomy * Anemia * History of DVT, history of PE June 2016 * COPD * History of C. difficile infection * Hypertension * History of CVA 2, with left-sided weakness * History of PVD and revascularization * Malnutrition, failure to thrive . Past Surgical History * Tonsils * Appendectomy * Hernia 2 * Heart catheterization 07/09 * Revascularization of legs / PVD * Lung biopsy . Reported Medications Spiriva Handihaler (Tiotropium Inh) 18 Mcg Cap 18 Mcg INH DAILY 30 Days Ventolin Hfa 18 GM Inh (Albuterol Sulfate) 90 Mcg/Act Aer 2 Puff INH Q6H 30 Days Thera/Beta-Carotene (Multiple Vitamin) 1 Tab Tab 1 Tab PO DAILY 30 Days Zinc Sulfate 220 Mg Cap 220 Mg PO DAILY Vitamin B-1 (Thiamine HCl) 100 Mg Tab 100 Mg PO DAILY Lisinopril 5 Mg Tab 2.5 Mg PO DAILY Cardizem CD 24 HR (Diltiazem CD 24 HR) 180 Mg Caper 180 Mg PO DAILY Lipitor (Atorvastatin Calcium) 40 Mg Tab 40 Mg PO HS Atenolol 25 Mg Tab 12.5 Mg PO DAILY Vitamin C (Ascorbic Acid) 500 Mg Tab 500 Mg PO BID Cipro (Ciprofloxacin HCl) 500 Mg Tab 500 Mg PO BID 7 Days Pyridium (Phenazopyridine HCl) 100 Mg Tab 100 Mg PO TID START:11/13/2016 Prosource Plus (Nutritional Supplements) 1 Liq Liq 30 Ml PO TID Lac-Hydrin (Lactic Acid (Ammonium Lactate)) 12% Lotn 1 Applic TOPICAL BID Apply to entire body excluding skin folds and web spaces Lovenox Inj (Enoxaparin Sodium) 100 Mg/Ml Syr 90 Mg SQ DAILY Remeron (Mirtazapine) 15 Mg Tab 15 Mg PO HS Ativan (Lorazepam) 0.5 Mg Tab 0.5 Mg PO Q8H PRN Ventolin Hfa 18 GM Inh (Albuterol Sulfate) 90 Mcg/Act Aer 2 Puff INH Q4H PRN Restoril (Temazepam) 15 Mg Cap 15 Mg PO HS Zofran (Ondansetron HCl) 8 Mg Tab 8 Mg PO Q8HR PRN Citroma Liq (Magnesium Citrate) 300 Ml Liq 300 Ml PO DAILY PRN Enema Disposable (Sodium Phosphates) 1 Veronica Veronica 1 Applic MA DAILY PRN Milk of Magnesia Liq (Magnesium Hydroxide) 400 Mg/5 Ml Susp 30 Ml PO DAILY PRN Prednisone 10 Mg Tab 10 Mg PO DAILY Melatonin 3 Mg Tab 3 Mg PO HS Magnesium Oxide 400 Mg Tab 400 Mg PO BID Albuterol Neb (Albuterol Sulfate) 2.5 Mg/3 Ml Neb 2.5 Mg NEB Q2HR PRN Albuterol Neb (Albuterol Sulfate) 2.5 Mg/3 Ml Neb 2.5 Mg NEB QID Tylenol (Acetaminophen) 325 Mg Tab 650 Mg PO Q4H PRN Plavix (Clopidogrel Bisulfate) 75 Mg Tab 75 Mg PO DAILY Folate (Folic Acid) 1 Mg Tab 1 Mg PO DAILY Dulcolax Supp (Bisacodyl) 10 Mg Supp 10 Mg RECTAL DAILY PRN . Current Medications Medications (Trade) Dose Ordered Sig/Elvia Route Start Time Stop Time Status Last Admin (NS Flush) 2 ml UNSCH PRN IV FLUSH 11/12/16 11:00 11/15/16 08:28 (NS Flush) 2 ml BID IV FLUSH 11/12/16 21:00 11/16/16 11:10 (Tylenol) 650 mg Q6H PRN PO 11/12/16 12:00 11/13/16 21:07 (Protonix Inj) 40 mg DAILY IV 11/13/16 09:00 11/16/16 11:12 (Spiriva Inh) 18 mcg DAILY INH 11/13/16 09:00 11/15/16 08:29 (Plavix) 75 mg DAILY PO 11/13/16 09:00 11/16/16 11:11 Hydrocortisone Sodium Succinate 100 mg 100 mg Q8HR IV PUSH 11/12/16 14:00 11/16/16 05:50 Heparin Sodium/ Dextrose 250 ml @ 0 mls/hr TITRATE IV 11/12/16 11:15 11/15/16 15:16 (Levophed-Dextrose Drip) 250 ml @ 0 mls/hr TITRATE IV 11/12/16 13:30 11/12/16 18:48 Terbutaline Sulfate 1 mg 1 mg UNSCH PRN SQ 11/12/16 13:30 (Pitressin Inj/ D5W 100 ml Inj) 100 ml @ 0 mls/hr Q0M IV 11/12/16 13:20 11/14/16 15:43 Miscellaneous Information Patient in critical care unit? Ass... Q361D XX 11/12/16 18:30 11/12/16 18:30 (Chlorhexidine 2% Cloth) 3 pack DAILY@04 TOP 11/13/16 04:00 11/17/16 04:01 11/16/16 04:00 Chlorhexidine Gluconate 3 pack 3 pack UNSCH PRN TOP 11/12/16 18:30 11/17/16 18:18 Potassium Chloride 100 ml @ 50 mls/hr Q2H PRN IV 11/13/16 09:45 11/15/16 11:25 (KCl 20 Meq Premix Inj) 100 ml @ 50 mls/hr Q2H PRN IV 11/13/16 09:45 11/16/16 11:10 Potassium Chloride 40 meq 40 meq UNSCH PRN PO/TUBE 11/13/16 09:45 Potassium Chloride 100 ml @ 25 mls/hr UNSCH PRN IV 11/13/16 09:45 Potassium Chloride 100 ml @ 50 mls/hr Q2H PRN IV 11/13/16 09:45 (Magnesium Sulfate Inj/NS Inj) 100 ml @ 50 mls/hr UNSCH PRN IV 11/13/16 09:45 Magnesium Oxide 800 mg 800 mg UNSCH PRN PO 11/13/16 09:45 (Magnesium Sulfate Inj/NS Inj) 100 ml @ 50 mls/hr UNSCH PRN IV 11/13/16 09:45 11/15/16 16:59 Potassium Phosphate 2000 mg 2,000 mg Q4H PRN PO 11/13/16 09:45 (Sodium Phosphate Inj/NS 250 ml Inj) 250 ml @ 42 mls/hr UNSCH PRN IV 11/13/16 09:45 11/15/16 16:59 (KCl 40 Meq/30 ml Liq) 40 meq UNSCH PRN PO/TUBE 11/13/16 09:45 Potassium Phosphate 2000 mg 2,000 mg UNSCH PRN PO/TUBE 11/13/16 09:45 (Potassium Phosphate Inj/NS 250 ml Inj) 260 ml @ 42 mls/hr UNSCH PRN IV 11/13/16 09:45 11/13/16 13:05 (D50w (Vial) Inj) 25 ml UNSCH PRN IV PUSH 11/13/16 10:15 (Glucagon Inj) 1 mg UNSCH PRN OTHER 11/13/16 10:15 Insulin Human Regular 1 1 Q6H SQ 11/13/16 10:15 11/15/16 17:48 Diltiazem HCl 125 mg/Sodium Chloride 125 ml @ 0 mls/hr TITRATE IV 11/14/16 00:30 Hold 11/14/16 01:30 (Ancef 2 Gm Premix) 50 ml @ 100 mls/hr Q8H IV 11/14/16 08:00 11/15/16 22:17 Metronidazole 500 mg 500 mg Q8HR PO 11/14/16 14:00 11/16/16 05:50 Ceftriaxone Sodium 2000 mg/ Sodium Chloride 100 ml @ 200 mls/hr Q24H IV 11/14/16 11:00 11/15/16 11:26 (Neosynephrine Inj/D5W 500 ml Inj) 500 ml @ 0 mls/hr TITRATE IV 11/14/16 17:15 11/15/16 12:54 Terbutaline Sulfate 1 mg 1 mg UNSCH PRN SQ 11/14/16 16:15 (Cordarone Inj/ D5W ([place]) Inj) 250 ml @ 0 mls/hr CONTINUOUS IV 11/15/16 07:45 11/15/16 22:19 Vancomycin HCl 125 mg 125 mg QID PO 11/15/16 13:00 11/16/16 11:11 (Cardizem Inj/NS Inj) 125 ml @ 0 mls/hr TITRATE IV 11/15/16 16:30 11/15/16 22:19 (Restoril) 7.5 mg HS PRN PO 11/15/16 22:45 11/15/16 22:47 (Ecotrin Ec) 81 mg DAILY PO 11/16/16 09:00 11/16/16 11:11 Family History The patient's mother is living at age 98. The patient's father at 88 of "old age." A grandfather had prostate cancer, but there is no family history of lung cancer. . Substance Use Tobacco: The patient smoked for more than 50 years, but quit about 4 months ago. Alcohol: Occasional. Prescription med abuse: None Illicits: None . Psychosocial History The patient was born in [place], and moved to [place] with his 22 years ago. He had been living with his locally, but they report that they are now essentially homeless. The patient was twice, currently for 36 years. The patient and his each had 1 child prior to their current marriage, and then had 2 children together, both living in [place]. 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 . Spiritual/Cultural Factors The patient reports he is not spiritual or latter day, and he does not desire college specialist visits. . Living Will: Never completed Health Care Surrogate: Never completed Durable Power of Mechanic And Welder: Never completed Today's verbally stated goals: The patient says that just today he understands that he is terminal, and what is important to him now is to be able to get back home and spend time with his and family. He would like to speak with hospice about their services. He also does not want to be on artificial life support machines or to be resuscitated. . Family/friends goals: The patient's concurs with the patient's goals and requests. . Ethical and Legal Issues There are no ethical issues that would impact his care were decision-making at this time. The patient has capacity for decision-making at this time. When he loses that capacity in the upcoming days, his will be his proxy decision maker. . Physical Exam Vital Signs Date Time Temp Pulse Resp B/P Pulse Ox O2 Delivery O2 Flow Rate FiO2 11/16/16 10:17 95 Nasal Cannula 3.00 11/16/16 08:17 92 Nasal Cannula 2.00 11/16/16 06:00 90 11/16/16 04:00 89 11/16/16 04:00 93 Nasal Cannula 4.00 11/16/16 04:00 97.7 89 25 111/71 93 11/16/16 02:00 87 11/16/16 00:00 87 11/16/16 00:00 97.0 87 19 107/67 95 11/16/16 00:00 95 Nasal Cannula 4.00 11/15/16 23:00 91 11/15/16 23:00 91 11/15/16 22:00 91 11/15/16 21:39 94 Nasal Cannula 4.00 11/15/16 20:00 89 11/15/16 20:00 93 Nasal Cannula 4.00 11/15/16 20:00 97.0 89 23 124/73 93 11/15/16 18:00 129 11/15/16 16:00 97.7 129 28 109/68 90 11/15/16 16:00 129 11/15/16 16:00 93 Nasal Cannula 4.00 11/15/16 11/16/16 19:00 07:00 Intake Total 1042 ml 991 ml Output Total 150 ml 410 ml Balance 892 ml 581 ml Intake Oral 100 ml 30 ml IV Total 942 ml 961 ml Output Urine Total 150 ml 400 ml Chest Tube Drainage Total 10 ml # Bowel Movements 0 Exam CONSTITUTIONAL/GENERAL: This is a profoundly weak and somewhat cachectic patient , in mild respiratory distress. TUBES/LINES/DRAINS: IV, nasal cannula SKIN: No jaundice, rashes, or lesions. Ecchymoses and some skin tears on upper extremities. Skin temperature appropriate. Not diaphoretic. HEAD: Atraumatic. Normocephalic. EYES: Pupils equal and round and reactive. Extraocular motions intact. No scleral icterus. No injection or drainage. Fundi not examined. ENT: Hearing grossly normal. Nose without bleeding or purulent drainage. Throat without visible erythema, exudates, masses, or lesions. NECK: Trachea midline. Supple, nontender. No palpable thyroid enlargement or nodularity. CARDIOVASCULAR: Irregularly irregular rhythm without murmurs or rubs. No JVD. Peripheral pulses weak/symmetric. RESPIRATORY/CHEST: Symmetric, mildly labored respirations. Scattered rales and rhonchi. GASTROINTESTINAL: Abdomen soft, non-tender, nondistended. No hepato-splenomegaly , or palpable masses. No guarding. Bowel sounds present. GENITOURINARY: Without palpable bladder distension. MUSCULOSKELETAL: Extremities without clubbing, cyanosis, but there is some 1+ edema in his right arm and both feet.. No joint tenderness or effusion noted. No calf tenderness. No mottling or clubbing. LYMPHATICS: No palpable cervical or supraclavicular adenopathy. NEUROLOGICAL: Awake and alert. He is profoundly weak globally. Follows commands. Cognitively sharp. Moves all extremities. PSYCHIATRIC: No obvious anxiety/depression. no apparent hallucinations or other psychotic thought process. . Diagnostic Tests Laboratory Laboratory Tests Test 11/13/16 11/13/16 11/14/16 11/14/16 14:58 16:30 00:15 00:35 Activated Partial 49.4 SEC 52.8 SEC Thromboplast Time (24.3-30.1) (24.3-30.1) Nasal Screen MRSA (PCR) NEGATIVE (NEGATIVE) White Blood Count 13.7 TH/MM3 (4.0-11.0) Red Blood Count 2.34 MIL/MM3 (4.50-5.90) Hemoglobin 6.9 GM/DL (13.0-17.0) Hematocrit 20.8 % (39.0-51.0) Mean Corpuscular Volume 89.0 FL (80.0-100.0) Mean Corpuscular Hemoglobin 29.7 PG (27.0-34.0) Mean Corpuscular Hemoglobin 33.4 % Concent (32.0-36.0) Red Cell Distribution Width 18.7 % (11.6-17.2) Platelet Count 199 TH/MM3 (150-450) Mean Platelet Volume 7.2 FL (7.0-11.0) Test 11/14/16 11/14/16 11/14/16 11/15/16 02:52 05:50 18:10 04:10 Blood Type B NEGATIVE Crossmatch Leukocyte-Reduced Red Blood Cells Blood Bank Comment White Blood Count 16.4 TH/MM3 47.9 TH/MM3 (4.0-11.0) (4.0-11.0) Red Blood Count 2.81 MIL/MM3 3.53 MIL/MM3 (4.50-5.90) (4.50-5.90) Hemoglobin 8.1 GM/DL 10.1 GM/DL (13.0-17.0) (13.0-17.0) Hematocrit 24.5 % 30.3 % (39.0-51.0) (39.0-51.0) Mean Corpuscular Volume 87.3 FL 85.8 FL (80.0-100.0) (80.0-100.0) Mean Corpuscular Hemoglobin 29.0 PG 28.6 PG (27.0-34.0) (27.0-34.0) Mean Corpuscular Hemoglobin 33.2 % 33.3 % Concent (32.0-36.0) (32.0-36.0) Red Cell Distribution Width 18.7 % 18.8 % (11.6-17.2) (11.6-17.2) Platelet Count 203 TH/MM3 364 TH/MM3 (150-450) (150-450) Mean Platelet Volume 7.4 FL 7.1 FL (7.0-11.0) (7.0-11.0) Neutrophils (%) (Auto) 96.4 % % (16.0-70.0) (16.0-70.0) Lymphocytes (%) (Auto) 1.0 % % (9.0-44.0) (9.0-44.0) Monocytes (%) (Auto) 2.5 % (0.0-8.0) % (0.0-8.0) Eosinophils (%) (Auto) 0.0 % (0.0-4.0) % (0.0-4.0) Basophils (%) (Auto) 0.1 % (0.0-2.0) % (0.0-2.0) Neutrophils # (Auto) 15.8 TH/MM3 TH/MM3 (1.8-7.7) (1.8-7.7) Lymphocytes # (Auto) 0.2 TH/MM3 TH/MM3 (1.0-4.8) (1.0-4.8) Monocytes # (Auto) 0.4 TH/MM3 TH/MM3 (0-0.9) (0-0.9) Eosinophils # (Auto) 0.0 TH/MM3 TH/MM3 (0-0.4) (0-0.4) Basophils # (Auto) 0.0 TH/MM3 TH/MM3 (0-0.2) (0-0.2) CBC Comment AUTO DIFF AUTO DIFF Differential Total Cells 100 100 Counted Neutrophils % (Manual) 69 % (16-70) 82 % (16-70) Band Neutrophils % 25 % (0-6) 6 % (0-6) Lymphocytes % 1 % (9-44) 2 % (9-44) Monocytes % 4 % (0-8) 3 % (0-8) Neutrophils # (Manual) 15.6 TH/MM3 45.5 TH/MM3 (1.8-7.7) (1.8-7.7) Metamyelocytes 1 % (0-1) 1 % (0-1) Differential Comment FINAL DIFF FINAL DIFF MANUAL MANUAL Toxic Granulation 1+ (NORMAL) 1+ (NORMAL) Platelet Estimate NORMAL NORMAL (NORMAL) (NORMAL) Platelet Morphology Comment NORMAL NORMAL (NORMAL) (NORMAL) Helmet Cells OCC (NORMAL) Acanthocytes 1+ (NORMAL) OCC (NORMAL) Keratocytes OCC (NORMAL) Activated Partial 61.4 SEC Thromboplast Time (24.3-30.1) Sodium Level 138 MEQ/L 139 MEQ/L (136-145) (136-145) Potassium Level 3.2 MEQ/L 3.0 MEQ/L 2.8 MEQ/L (3.5-5.1) (3.5-5.1) (3.5-5.1) Chloride Level 107 MEQ/L 107 MEQ/L (98-107) (98-107) Carbon Dioxide Level 19.2 MEQ/L 20.6 MEQ/L (21.0-32.0) (21.0-32.0) Anion Gap 12 MEQ/L (5-15) 11 MEQ/L (5-15) Blood Urea Nitrogen 24 MG/DL (7-18) 9 MG/DL (7-18) Creatinine 0.41 MG/DL 0.50 MG/DL (0.60-1.30) (0.60-1.30) Estimat Glomerular Filtration 209 ML/MIN 166 ML/MIN Rate (>89) (>89) Random Glucose 158 MG/DL 129 MG/DL (74-106) (74-106) Calcium Level 7.2 MG/DL 7.7 MG/DL (8.5-10.1) (8.5-10.1) Protein Corrected Calcium 8.5 MG/DL (8.5-10.1) Phosphorus Level 2.7 MG/DL 1.5 MG/DL (2.5-4.9) (2.5-4.9) Magnesium Level 1.5 MG/DL 1.4 MG/DL (1.5-2.5) (1.5-2.5) Total Protein 4.8 GM/DL (6.4-8.2) Vancomycin Level Trough 10.2 MCG/ML (5.0-10.0) Myelocytes 6 % (0-0) Yulissa Cells 1+ (NORMAL) Test 11/15/16 11/15/16 11/15/16 11/15/16 07:20 08:00 16:30 22:00 Activated Partial 66.7 SEC Thromboplast Time (24.3-30.1) White Blood Count 42.6 TH/MM3 (4.0-11.0) Red Blood Count 3.43 MIL/MM3 (4.50-5.90) Hemoglobin 9.7 GM/DL (13.0-17.0) Hematocrit 29.6 % (39.0-51.0) Mean Corpuscular Volume 86.4 FL (80.0-100.0) Mean Corpuscular Hemoglobin 28.2 PG (27.0-34.0) Mean Corpuscular Hemoglobin 32.7 % Concent (32.0-36.0) Red Cell Distribution Width 19.0 % (11.6-17.2) Platelet Count 317 TH/MM3 (150-450) Mean Platelet Volume 6.8 FL (7.0-11.0) Neutrophils (%) (Auto) 96.1 % (16.0-70.0) Lymphocytes (%) (Auto) 1.1 % (9.0-44.0) Monocytes (%) (Auto) 2.7 % (0.0-8.0) Eosinophils (%) (Auto) 0.0 % (0.0-4.0) Basophils (%) (Auto) 0.1 % (0.0-2.0) Neutrophils # (Auto) 40.9 TH/MM3 (1.8-7.7) Lymphocytes # (Auto) 0.5 TH/MM3 (1.0-4.8) Monocytes # (Auto) 1.2 TH/MM3 (0-0.9) Eosinophils # (Auto) 0.0 TH/MM3 (0-0.4) Basophils # (Auto) 0.0 TH/MM3 (0-0.2) CBC Comment AUTO DIFF Differential Total Cells 100 Counted Neutrophils % (Manual) 77 % (16-70) Band Neutrophils % 15 % (0-6) Lymphocytes % 1 % (9-44) Monocytes % 3 % (0-8) Neutrophils # (Manual) 40.9 TH/MM3 (1.8-7.7) Myelocytes 4 % (0-0) Differential Comment FINAL DIFF MANUAL Toxic Granulation 1+ (NORMAL) Platelet Estimate NORMAL (NORMAL) Platelet Morphology Comment NORMAL (NORMAL) Yulissa Cells 1+ (NORMAL) Acanthocytes OCC (NORMAL) Lactic Acid Level 1.4 mmol/L (0.4-2.0) Total Creatine Kinase 23 U/L (39-308) Troponin I 0.02 NG/ML (0.02-0.05) Thyroid Stimulating Hormone 0.983 uIU/ML 3rd Gen (0.358-3.740) Blood Gas Puncture Site RT RADIAL Blood Gas Patient Temperature 98.6 Blood Gas HCO3 18 mmol/L (22-26) Blood Gas Base Excess -5.0 mmol/L (-2-2) Blood Gas Oxygen Saturation 90 % (90-100) Arterial Blood pH 7.52 (7.380-7.420) Arterial Blood Partial 22 mmHg (38-42) Pressure CO2 Arterial Blood Partial 60 mmHg Pressure O2 (61-120) Arterial Blood Oxygen Content 13.2 Vol % (12.0-20.0) Arterial Blood 1.5 % (0-4) Carboxyhemoglobin Arterial Blood Methemoglobin 1.0 % (0-2) Blood Gas Hemoglobin 10.5 G/DL (12.0-16.0) Oxygen Delivery Device NASAL CANNULA Blood Gas Liter Flow 4 L/M Potassium Level 3.2 MEQ/L (3.5-5.1) Test 11/16/16 05:40 White Blood Count 35.7 TH/MM3 (4.0-11.0) Red Blood Count 3.12 MIL/MM3 (4.50-5.90) Hemoglobin 9.0 GM/DL (13.0-17.0) Hematocrit 27.3 % (39.0-51.0) Mean Corpuscular Volume 87.5 FL (80.0-100.0) Mean Corpuscular Hemoglobin 28.7 PG (27.0-34.0) Mean Corpuscular Hemoglobin 32.8 % Concent (32.0-36.0) Red Cell Distribution Width 19.0 % (11.6-17.2) Platelet Count 242 TH/MM3 (150-450) Mean Platelet Volume 6.9 FL (7.0-11.0) Neutrophils (%) (Auto) % (16.0-70.0) Lymphocytes (%) (Auto) % (9.0-44.0) Monocytes (%) (Auto) % (0.0-8.0) Eosinophils (%) (Auto) % (0.0-4.0) Basophils (%) (Auto) % (0.0-2.0) Neutrophils # (Auto) TH/MM3 (1.8-7.7) Lymphocytes # (Auto) TH/MM3 (1.0-4.8) Monocytes # (Auto) TH/MM3 (0-0.9) Eosinophils # (Auto) TH/MM3 (0-0.4) Basophils # (Auto) TH/MM3 (0-0.2) CBC Comment AUTO DIFF Differential Total Cells 100 Counted Neutrophils % (Manual) 91 % (16-70) Band Neutrophils % 6 % (0-6) Neutrophils # (Manual) 35.7 TH/MM3 (1.8-7.7) Metamyelocytes 1 % (0-1) Myelocytes 1 % (0-0) Promyelocytes 1 % (0-0) Differential Comment FINAL DIFF MANUAL Platelet Estimate NORMAL (NORMAL) Platelet Morphology Comment NORMAL (NORMAL) Acanthocytes OCC (NORMAL) Activated Partial 36.9 SEC Thromboplast Time (24.3-30.1) Sodium Level 137 MEQ/L (136-145) Potassium Level 2.9 MEQ/L (3.5-5.1) Chloride Level 105 MEQ/L (98-107) Carbon Dioxide Level 19.9 MEQ/L (21.0-32.0) Anion Gap 12 MEQ/L (5-15) Blood Urea Nitrogen 19 MG/DL (7-18) Creatinine 0.43 MG/DL (0.60-1.30) Estimat Glomerular Filtration 197 ML/MIN Rate (>89) Random Glucose 119 MG/DL (74-106) Calcium Level 7.2 MG/DL (8.5-10.1) Protein Corrected Calcium 8.6 MG/DL (8.5-10.1) Phosphorus Level 2.5 MG/DL (2.5-4.9) Magnesium Level 1.7 MG/DL (1.5-2.5) Total Protein 4.6 GM/DL (6.4-8.2) Result Diagram: 11/16/16 0540 11/16/16 0540 Microbiology Microbiology Date/Time Procedure Status Source Growth 11/13/16 14:58 Aerobic Blood Culture - Preliminary Resulted Blood Peripheral NO GROWTH IN 3 DAYS 11/13/16 14:58 Anaerobic Blood Culture - Preliminary Resulted Blood Peripheral NO GROWTH IN 3 DAYS Imaging Last Impressions Chest X-Ray 11/16/16 0000 Signed Impressions: Service Date/Time: October 03:48 - CONCLUSION: Diffuse consolidation and bilateral effusions likely related to diffuse edema. This appears worse on the current exam. Sy Edwards MD Chest CT 11/12/16 0000 Signed Impressions: Service Date/Time: Saturday, November 12, 2016 11:23 - CONCLUSION: 1. Bilateral pleural effusions left greater than right. Bilateral dependent parenchymal lung opacity indicating atelectasis. 2. Decrease in size of right hilar and mediastinal mass/enlarged lymph nodes. Prashant Valdez MD Patient/Family Conference Present at Family Conference: Patient's is at bedside. . Family Conference Time (mins): 41 Family Conference Location: Bedside Issues Discussed: * Palliative care role, purpose, approach * Hospice care role, purpose, approach; hospice Care Center options and processes * Additional medical, psychosocial, and spiritual history * Patients general health, functional status, and cognitive changes in the months leading up to the current hospitalization * Patient/family understanding of the current medical problems * Patient/family understanding of prognosis * Patients goals of care as best understood from advance directives and/or conversations and/or values * Current medical treatment options and benefits/burdens of those options * Likely scenarios comparing ongoing aggressive care with a transition to comfort measures only * Questions answered to the best of my ability * Palliative care contact information provided . Assessment and Plan Disease Oriented Problem List: (1) septic shock / UTI / bacteremia (2) hypoxic respiratory failure (3) metastatic adenocarcinoma of lung, s/p radiation and chemotherapy (4) homelessness (5) Pleural effusions, s/p thoracentesis and thoracostomy (6) malnutrition, failure to thrive (7) history of C. 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 They have 2 children locally. Spiritual: He says he is not spiritual or latter day, and he does not desire college specialist visits. Legal: The patient has capacity for decision-making at this time. When he loses that capacity in the upcoming days, his will be his proxy decision maker. Ethical issues impacting care: None. . Important Contacts Spouse: Tala Trujillo [phone], but she is almost always at the bedside and [place] [facility] [place] . Prognosis The patient is terminal. He likely has just days or weeks to live. . Code Status: No Code Plan * DO NOT RESUSCITATE - per request of patient and spouse 11/16/16. * DECISION-MAKING: The patient has capacity for decision-making at this time. When he loses that capacity in the upcoming days, his will be his proxy decision maker. * GOALS: The patient says that just today he understands that he is terminal, and what is important to him now is to be able to get back out of the hospital and spend time with his and family. He would like to speak with hospice about their services, and perhaps [facility]. He also does not want to be on artificial life support machines or to be resuscitated. * SYMPTOMS: The patient still has some dyspnea, although that has improved. If he does transition to comfort care, he will benefit from judicious opiate and benzodiazepine dosing to manage his dyspnea. * Hospice consulted. * Palliative Care will continue to follow the patient during this hospitalization . Time Spent Total Floor Time (mins): 93 Face to Face Time (mins): 59 >50% Counseling/Coord of Care: Yes (d/w Claudine Ramirez PA-C, and with RN) Thank you for the opportunity to participate in the care of Mr. Trujillo. Attestation To help prompt me to consider important information that might be impacting today's encounter and assessment, information from prior notes written by myself or my colleagues may have been "brought forward" into today's note. My signature on this note, however, is an attestation that I personally performed the exam, history, and/or decision-making noted today, and, unless otherwise indicated, the interactions with patient, family, and staff as well as the review of records all occurred today. I also attest that the listed assessment and stated plan reflect my best clinical judgment today based on the combination of historical information, prior notes, and today's exam/ interactions. When time spent is documented, it refers only to time spent today by the signer, or if indicated, combined time spent today by collaborating physician/nurse practitioner. Luz Martinez MD Nov 16, 2016 15:27
--- NOTE | 2016-11-16 18:38 | EKG ---
Date Performed: 11/16/2016 Time Performed: 11:00:07 PTAGE: 65 years EKG: Sinus rhythm LOW QRS VOLTAGE IN EXTREMITY LEADS BORDERLINE ECG PREVIOUS TRACING : 11/14/2016 09.09 Compared to the previous tracing, previously afib DOCTOR: Kenroy Brown Interpretating Date/Time 11/16/2016 18:37:39
[2016-11-16] MEDS: DILTIAZEM INJ 125 MG in SODIUM CHLORIDE 0.9% INJ 100 ML IV SCH (22:01)
[2016-11-16] MEDS: TEMAZEPAM 7.5 MG CAP PO PRN (22:01)
[2016-11-16] MEDS: AMIODARONE INJ 450 MG in DEXTROSE 5% IN WATE(EXCEL) INJ 241 ML IV SCH ×2 (22:01)
[2016-11-16] MEDS: HEPARIN-D5W INJ 250 ML IV SCH (22:06)
[2016-11-16 23:09] LABS: APTT (PATIENT) 73.1 SEC (24.3-30.1)
[2016-11-17] VITALS (11 sets, daily range): BP systolic 108–135; BP diastolic 61–80; PULSE 81–89; RESP 20–27; TEMP 97–98.2; O2SAT 92–98
[2016-11-17] MEDS: ceFAZolin 2 GM PREMIX 50 ML IV SCH ×3 (01:53→17:57)
[2016-11-17] MEDS: CHLORHEXIDINE GLUCONATE 2 % 1 PACK (2 CLOTHS)(taper/protocol) TOP SCH (04:00)
[2016-11-17] MEDS: INSULIN NovoLIN REGULAR SUPPLEMENTAL SCALE SQ SCH ×4 (04:15→22:15)
[2016-11-17 05:58] LABS: APTT (PATIENT) 121.3 SEC (24.3-30.1)
[2016-11-17] MEDS: HYDROCORTISONE SOD SUCCINATE 100 MG VIAL IV PUSH SCH ×3 (06:33→22:14)
[2016-11-17] MEDS: metroNIDAZOLE 500 MG TAB PO SCH ×3 (06:33→22:14)
[2016-11-17] MEDS: POTASSIUM CHLOR 20 MEQ PREMIX 100 ML IV PRN (06:47)
--- NOTE | 2016-11-17 08:27 | PD.CARD.PN ---
Subjective Subjective Remarks Denies CP, dyspnea, palpitations, dizziness, PND. Slept well. Objective Medications Item Value Date Time Aspirin 81 mg 11/16/16 0900 (Ecotrin Ec) DAILY/PO 11/16/16 1111 Diltiazem HCl 125 125 ml @ 0 mls/hr 11/15/16 1630 mg/Sodium Chloride TITRATE/IV 11/16/162200 Amiodarone HCl 250 ml @ 0 mls/hr 11/15/16 0745 450 mg/Dextrose CONTINUOUS/IV 11/16/16 220 Clopidogrel 75 mg 11/13/16 0900 Bisulfate DAILY/PO 11/16/16 1111 (Plavix) Heparin Sodium/ 250 ml @ 0 mls/hr 11/12/16 1115 Dextrose TITRATE/IV 11/16/166 Vital Signs / I&O Vital Signs Date Time Temp Pulse Resp B/P Pulse Ox O2 Delivery O2 Flow Rate FiO2 11/17/16 08:03 96 Nasal Cannula 3.00 11/17/16 07:00 86 11/17/16 04:00 97.4 88 22 134/77 92 11/17/16 04:00 93 Nasal Cannula 3.00 11/17/16 00:00 93 Nasal Cannula 3.00 11/17/16 00:00 97.7 81 22 135/77 93 11/16/16 23:00 81 11/16/16 20:36 99 4.00 11/16/16 20:00 97.7 91 25 135/85 97 11/16/16 20:00 97 Nasal Cannula 3.00 11/16/16 16:00 95 Nasal Cannula 4.00 11/16/16 16:00 97.3 85 24 127/74 97 11/16/16 15:00 91 11/16/16 12:00 97.8 95 22 130/80 96 11/16/16 12:00 95 Nasal Cannula 4.00 11/16/16 10:17 95 Nasal Cannula 3.00 I/O 11/16/16 11/16/16 11/16/16 11/17/16 11/17/16 11/17/16 07:00 15:00 23:00 07:00 15:00 23:00 Intake Total 261 ml 246 ml 468 ml 360 ml Output Total 160 ml 600 ml 250 ml 30 ml Balance 101 ml -354 ml 218 ml 330 ml Intake Oral 30 ml 50 ml IV Total 261 ml 246 ml 438 ml 310 ml Output Urine Total 150 ml 600 ml 250 ml 20 ml Chest Tube Drainage Total 10 ml 10 ml Physical Exam GENERAL: Well developed, well nourished. No acute distress. HEENT: Jugular venous pressure is normal. CHEST: Lungs clear to auscultation anteriorly. CARDIAC: Regular rate and rhythm without S3, S4, or murmur. ABDOMEN: Soft, nontender, no hepatosplenomegaly. Bowel sounds present. EXTREMITIES: No clubbing, cyanosis, or edema. Laboratory Laboratory Tests Test 11/16/16 11/17/16 22:00 04:25 Activated Partial 73.1 SEC 121.3 SEC Thromboplast Time Potassium Level 3.3 MEQ/L Assessment and Plan Problem List: (1) Paroxysmal atrial fibrillation Assessment and Plan: Remains in NSR with occasional PACs. Recommend change IV Cardizem to IV metoprolol given his severely reduced EF. Continue IV Amiodarone. With EF now down to about 30% thromboembolic risk at least moderately elevated. (2) CAD (coronary artery disease) Assessment and Plan: History of STEMI, stent diagonal 06/2016. Stable. No recurrent angina. Continue Plavix, baby aspirin. (3) Dilated cardiomyopathy Assessment and Plan: Echo this admission reviewed. Suspect EF closer to 30% rather than 35-40%. CXR suggestive of CHF. REC diuresis, add beta elan, NICHOLAS-I. Code Status no code Discussed Condition With patient Problem Qualifiers (1) CAD (coronary artery disease): Qualified Code: I25.10 - Coronary artery disease involving [place] coronary artery of [place] heart without angina pectoris Rene Kaiser MD Nov 17, 2016 08:27
[2016-11-17] MEDS ORDERED: FUROSEMIDE 40 MG/4 ML VIAL IV PUSH SCH (09:00)
[2016-11-17] MEDS: ASPIRIN EC 81 MG TABEC PO SCH (09:00)
[2016-11-17] MEDS: TIOTROPIUM BROMIDE 18 MCG INH INH SCH (09:00)
[2016-11-17] MEDS: VANCOMYCIN 500 MG VIAL (FOR ORAL USE ONLY) PO SCH ×4 (09:00→22:15)
[2016-11-17] MEDS: ENALAPRILAT 2.5 MG/2 ML VIAL IV PUSH SCH (10:07)
[2016-11-17] MEDS: METOPROLOL TARTRATE 5 MG/5 ML VIAL IV PUSH SCH ×3 (10:08→21:00)
[2016-11-17] MEDS: CLOPIDOGREL 75 MG TAB PO SCH (10:08)
[2016-11-17] MEDS: PANTOPRAZOLE SODIUM 40 MG VIAL IV SCH (10:08)
[2016-11-17] MEDS: SODIUM CHLORIDE 0.9% FLUSH 5 ML FLUSH IV FLUSH SCH ×2 (10:28→22:15)
[2016-11-17] MEDS: cefTRIAXone INJ 2,000 MG in SODIUM CHLORIDE 0.9% INJ 100 ML IV SCH (11:00)
[2016-11-17] MEDS: AMIODARONE INJ 450 MG in DEXTROSE 5% IN WATE(EXCEL) INJ 241 ML IV SCH ×2 (12:59)
--- NOTE | 2016-11-17 16:24 | HHI.CCPN ---
Subjective Remarks/Hospital Course This is a 64-year-old male with history of COPD, hypertension, coronary artery disease, STEMI on 07/08/16 s/p PCI and DELMY (Dr. Crouch), history of C. difficile colitis, non-small cell lung cancer receiving chemoradiation per Dr. Monteiro, history of pulmonary embolism on Lovenox who was admitted to hospital recently from 07/08-08/31/16 with above diagnoses. During that admission he was noted to have a mediastinal and lung mass which was invading bilateral mainstem bronchi- subsequently diagnosed as a non-small cell lung cancer(adenocarcinoma). He had complete atelectasis of the right lung last admission which required bronchoscopy 2. With chemoradiation obstruction improved with resolution of atelectasis. Today patient was brought from the custodial for fever, hypotension, confusion. Apparently patient was to be started on antibiotics for a UTI however prior to starting the antibiotics, he was found to be profoundly hypotensive, confused and was sent to ER. The patient also was noted to have diarrhea. His initial systolic blood pressure was in the 70s, rectal temperature of 100.4 and also tachycardic with a heart rate in 100's. Source of infection seems to be UTI, though HCAP cannot be ruled out. X-ray and CT of the chest shows bilateral pleural effusions left larger than right associated with infiltrate/atelectasis. He has multiple skin ulcers including his sacral area and his bilateral ankles. Patient received 3 L normal saline bolus with improvement in blood pressure. Levophed ordered. I have started patient on stress dose steroids as he was receiving prednisone at the custodial . Patient received Zosyn in the ED. I will place patient on cefepime, Flagyl (hx of C Diff) and IV vancomycin. Infectious disease consulted for septic shock in an immunocompromised patient. 11/13 Patient is on 35% VM, afebrile. Off Levophed 11/14 Patient was started on Cardizem drip 15mg/hr overnight in addition was given Lopressor 2.5mg IV x1 for tachycardia. Afebrile. On Heparin drip. s/p transfusion 1u PRBC for Hgb 6.9 now 8.1. 11/15 Patient is on Neosyn 40 mics, off vasopressin. He was given Amiodarone bolus overnight for Afib with RVR HR remains 120-130's. Afebrile. 11/16: Remains on Cardizem and amiodarone. Off vasopressors. Patient's CXR appears worse. He does not appear in distress. Palliative care consulted and family and patient will decide on hospice after d/w Dr. Monteiro 11/17: Bedside ultrasound shows fairly large left pleural effusion despite chest tube. Possibly loculated. We'll hold off thoracentesis to additional chest tube and the patient makes decisions about comfort measures versus aggressive care. Patient waiting to talk to Dr. Monteiro to decide on hospice Objective Vital Signs Date Time Temp Pulse Resp B/P Pulse Ox O2 Delivery O2 Flow Rate FiO2 11/17/16 08:03 96 Nasal Cannula 3.00 11/17/16 07:00 86 11/17/16 04:00 97.4 22 134/77 11/13/16 09:28 35 Intake and Output 11/16/16 11/16/16 11/17/16 08:00 16:00 00:00 Intake Total 261 ml 246 ml 468 ml Output Total 160 ml 600 ml 250 ml Balance 101 ml -354 ml 218 ml Result Diagram: 11/16/16 0540 11/17/16 0425 Imaging Last Impressions Chest X-Ray 11/14/16 0600 Signed Impressions: Service Date/Time: Monday, November 14, 2016 05:00 - CONCLUSION: Diffuse increased density likely representing a combination of edema, bilateral effusions, and some degree of consolidation and/or atelectasis at the mid and lower lungs. Sy Edwards MD Chest CT 11/12/16 0000 Signed Impressions: Service Date/Time: Saturday, November 12, 2016 11:23 - CONCLUSION: 1. Bilateral pleural effusions left greater than right. Bilateral dependent parenchymal lung opacity indicating atelectasis. 2. Decrease in size of right hilar and mediastinal mass/enlarged lymph nodes. Prashant Valdez MD Objective Remarks GENERAL: Elderly ill cachectic gentleman who appears pale, ill SKIN: Warm and dry. HEAD: Atraumatic. Normocephalic. EYES: No scleral icterus. No injection or drainage. ENT: No nasal bleeding or discharge. Dry mucous membranes NECK: Trachea midline. No JVD. CARDIOVASCULAR: Tachycardic with regular rhythm. No murmur appreciated. On amiodarone infusion RESPIRATORY: No accessory muscle use, diminished breath sound at bases. L chest tube with minimal output. US shows large L pl effusion GASTROINTESTINAL: Abdomen soft, cachectic, non-tender, nondistended. BACK/SKIN: The patient has stage I - II pressure sores on his presacral area and ankles. MUSCULOSKELETAL: Bilateral ankle pressure wounds. NEUROLOGICAL: Opens eyes to command and follows commands. Moves all extremities A/P Assessment and Plan NEURO: Acute metabolic encephalopathy Previous CVA -Minimize sedation, monitor neuro status closely. Awake and alert RESP: Respiratory insufficiency Left more than right pleural effusion Possible HCAP COPD Adenocarcinoma of the lung -Wean FiO2 to keep saturation more than 90% -DuoNeb every 6 hours scheduled and when necessary -On chronic prednisone, on Solucortef 100mg IV Q8 -s/p CT placement 11/12 for left pleural effusion-monitor CT drainage. Exudative effusion per LDH criteria. -Drainage is minimal, but patient continues to have large left pleural effusion -After discussion with Dr. Joseph if patient wants to have aggressive care, proceed with second lower chest tube placement -Chemoradiation per Dr. Monteiro CV: Afib with RVR Hypotension - Coronary artery disease Status post STEMI 07/08/16 with PCI/DELMY to D1 off Neosyn monitor HR and BP keep MAP>65mmHg. Lactic acid 1.4 today Continue with Amiodarone drip and IV metoprolol per Dr. Kaiser IV Lasix started by Dr. Kaiser, EF 30% according to him Continue Plavix GI: Diarrhea History C. difficile colitis - Diet per speech recommendation - On IV IV Protonix : -Monitor renal function, I/O's, electrolytes replacement per protocol ID: Staph Bacteremia Septic shock UTI Possible HCAP History of C. difficile colitis -Continue with abx per ID- Dr. Fabien Michel ( Rocephin, Cefazolin, Flagyl) PO Vanco 125mg QID. -monitor for signs of infections ( Fever, WBC) repeat CBC, check C-diff PCR -BC 11/13: NGTD -BC 11/12 : Staph Aureus -Urine cx 11/12: Proteus Mirabilis, staph species -Strep pneumonia and Legionella urinary Ag negative -Fluid cx 11/12: NGTD HEME: Non-small cell lung cancer Pulmonary embolism diagnosed on 07/08/16 -Monitor CBC, -Had been started on chemoradiation therapy Dr. Monteiro -Heme onc is following- Dr. Monteiro ENDO: -Electrolyte replacement protocol, sliding scale insulin for glycemic control PROPH: -Bilateral lower extremity SCDs. IV heparin, IV Protonix LINES: -Utilize peripheral IVs, Left subclavian CVP placed 11/12 Level 2 Patient may opt for Hospice after discussion with Dr. Monteiro. Shelia Dan MD Nov 17, 2016 16:24
--- NOTE | 2016-11-17 16:29 | HHI.HCPN ---
Reason for visit a. To assist with evaluation and management of symptoms including: Dyspnea b. To assist medical decision maker(s) with: better understanding of current medical conditions; weighing benefits/burdens of medical treatment options; making medical treatment decisions. . Subjective/Interval History INTERVAL NOTE: The patient thinks his breathing is a little better. He denies pain. He tells me that his oncologist came by and informed him that he was too weak to get any more chemotherapy. The patient says "I am stubborn, I am going to get stronger." I told him that, with advanced cancer, he will not have improving strength, and in fact will continue to decline. He says, "I know that 's what she say, but I am stubborn." The patient's says she supports her 's decisions, and they do not want hospice services at this time. I told him that usually, in advanced cancer patients, life is not shortened by engaging hospice services; he says "not now." As per initial consultation on 11/16/16 by Sheree Martinez MD: This 65-year-old male, with a past history of metastatic non-small cell adenocarcinoma of lung June 2016, chemotherapy and radiation, anemia, COPD, CVA, PVD, failure to thrive, and DVT/PE, presented to the hospital from his assisted with altered mental status, fever, and hypotension on 11/12/16. The patient was admitted here 07/08/16 because of chest pain and shortness of breath, and he was found to have an acute ND and underwent stenting. At the same time, he was noted to have a large left lung mass with adenopathy, and biopsy revealed non-small cell adenocarcinoma. He began radiation therapy on , and began cisplatin/Taxotere soon thereafter. He had a prolonged hospitalization, but was finally discharged to a [facility] facility on 08/31/16. Some rehab/therapy was attempted, but the patient and his report that he was never able to stand on his own or ambulate again. His most recent chemotherapy treatment was 10 or 11 days ago. He remained in the assisted until becoming ill and presenting to the emergency department now with signs of sepsis. In the emergency department, findings included: * Confusion, hypotension, fever, multiple skin tears, cachexia * Temp 100.4, pulse 104, respirations 17, and initial blood pressure in the 70s. Oxygen saturation was 98% on a nonrebreather * White count 4.4, hemoglobin 7.3 * Sodium 133, creatinine 1.09, albumin 1.5 * Lactic acid 2.4 * Urinalysis consistent with UTI * Chest x-ray revealed the mass, adenopathy, and new pleural effusions bilateral Resuscitation was begun with fluids, and antibiotics were started after cultures were obtained. Blood cultures eventually grew staph aureus, and the urine grew Proteus. The patient required pressor drugs intermittently the first day or 2. He remained somewhat hypoxic, requiring initially nonrebreather , then a Ventimask at 35%, and now nasal cannula oxygen at 4 L. An echocardiogram revealed that his ejection fraction was down to 35-40%. He developed rapid atrial fib, and that was controlled with Cardizem. He had a thoracentesis, and then a left thoracostomy tube was placed. The patient remained profoundly weak, and the chest x-ray today appeared worse, with more consolidation and persistent effusions. Palliative Care was consulted to assist with symptom management, and to enter into discussions with the patient and his regarding the current medical problems, the poor overall prognosis, and the benefits and burdens of the various treatment choices going forward. . Family/friend interactions Patient's is present again, and we reviewed his terminal diagnosis and condition . Advance Directives Living Will: Never completed Health Care Surrogate: Never completed Durable Power of Medical Case Worker: Never completed Objective Vital Signs Date Time Temp Pulse Resp B/P Pulse Ox O2 Delivery O2 Flow Rate FiO2 11/17/16 08:03 96 Nasal Cannula 3.00 11/17/16 07:00 86 11/17/16 04:00 97.4 88 22 134/77 92 11/17/16 04:00 93 Nasal Cannula 3.00 11/17/16 00:00 93 Nasal Cannula 3.00 11/17/16 00:00 97.7 81 22 135/77 93 11/16/16 23:00 81 11/16/16 20:36 99 4.00 11/16/16 20:00 97.7 91 25 135/85 97 11/16/16 20:00 97 Nasal Cannula 3.00 Intake & Output 11/17/16 11/17/16 07:00 19:00 Intake Total 828 ml Output Total 280 ml Balance 548 ml Intake Oral 80 ml IV Total 748 ml Output Urine Total 270 ml Chest Tube Drainage Total 10 ml Physical Exam CONSTITUTIONAL/GENERAL: This is a profoundly weak and somewhat cachectic patient , in no distress. NECK: Trachea midline. Supple, nontender. No palpable thyroid enlargement or nodularity. CARDIOVASCULAR: Irregularly irregular rhythm without murmurs or rubs. No JVD. Peripheral pulses weak/symmetric. RESPIRATORY/CHEST: Symmetric, mildly labored respirations. Scattered rales and rhonchi. GASTROINTESTINAL: Abdomen soft, non-tender, nondistended. No hepato-splenomegaly , or palpable masses. No guarding. Bowel sounds present. GENITOURINARY: Without palpable bladder distension. MUSCULOSKELETAL: Extremities without clubbing, cyanosis, but there is some 1+ edema in his right arm and both feet.. No joint tenderness or effusion noted. No calf tenderness. No mottling or clubbing. NEUROLOGICAL: Awake and alert. He is profoundly weak globally. Follows commands. Cognitively sharp. Moves all extremities. PSYCHIATRIC: No obvious anxiety/depression. no apparent hallucinations or other psychotic thought process. . Diagnostic Tests Laboratory Laboratory Tests Test 11/14/16 11/15/16 11/15/16 11/15/16 18:10 04:10 07:20 08:00 Potassium Level 3.0 MEQ/L 2.8 MEQ/L (3.5-5.1) (3.5-5.1) White Blood Count 47.9 TH/MM3 42.6 TH/MM3 (4.0-11.0) (4.0-11.0) Red Blood Count 3.53 MIL/MM3 3.43 MIL/MM3 (4.50-5.90) (4.50-5.90) Hemoglobin 10.1 GM/DL 9.7 GM/DL (13.0-17.0) (13.0-17.0) Hematocrit 30.3 % 29.6 % (39.0-51.0) (39.0-51.0) Mean Corpuscular Volume 85.8 FL 86.4 FL (80.0-100.0) (80.0-100.0) Mean Corpuscular Hemoglobin 28.6 PG 28.2 PG (27.0-34.0) (27.0-34.0) Mean Corpuscular Hemoglobin 33.3 % 32.7 % Concent (32.0-36.0) (32.0-36.0) Red Cell Distribution Width 18.8 % 19.0 % (11.6-17.2) (11.6-17.2) Platelet Count 364 TH/MM3 317 TH/MM3 (150-450) (150-450) Mean Platelet Volume 7.1 FL 6.8 FL (7.0-11.0) (7.0-11.0) Neutrophils (%) (Auto) % (16.0-70.0) 96.1 % (16.0-70.0) Lymphocytes (%) (Auto) % (9.0-44.0) 1.1 % (9.0-44.0) Monocytes (%) (Auto) % (0.0-8.0) 2.7 % (0.0-8.0) Eosinophils (%) (Auto) % (0.0-4.0) 0.0 % (0.0-4.0) Basophils (%) (Auto) % (0.0-2.0) 0.1 % (0.0-2.0) Neutrophils # (Auto) TH/MM3 40.9 TH/MM3 (1.8-7.7) (1.8-7.7) Lymphocytes # (Auto) TH/MM3 0.5 TH/MM3 (1.0-4.8) (1.0-4.8) Monocytes # (Auto) TH/MM3 (0-0.9) 1.2 TH/MM3 (0-0.9) Eosinophils # (Auto) TH/MM3 (0-0.4) 0.0 TH/MM3 (0-0.4) Basophils # (Auto) TH/MM3 (0-0.2) 0.0 TH/MM3 (0-0.2) CBC Comment AUTO DIFF AUTO DIFF Differential Total Cells 100 100 Counted Neutrophils % (Manual) 82 % (16-70) 77 % (16-70) Band Neutrophils % 6 % (0-6) 15 % (0-6) Lymphocytes % 2 % (9-44) 1 % (9-44) Monocytes % 3 % (0-8) 3 % (0-8) Neutrophils # (Manual) 45.5 TH/MM3 40.9 TH/MM3 (1.8-7.7) (1.8-7.7) Metamyelocytes 1 % (0-1) Myelocytes 6 % (0-0) 4 % (0-0) Differential Comment FINAL DIFF FINAL DIFF MANUAL MANUAL Toxic Granulation 1+ (NORMAL) 1+ (NORMAL) Platelet Estimate NORMAL NORMAL (NORMAL) (NORMAL) Platelet Morphology Comment NORMAL NORMAL (NORMAL) (NORMAL) Yulissa Cells 1+ (NORMAL) 1+ (NORMAL) Acanthocytes OCC (NORMAL) OCC (NORMAL) Sodium Level 139 MEQ/L (136-145) Chloride Level 107 MEQ/L (98-107) Carbon Dioxide Level 20.6 MEQ/L (21.0-32.0) Anion Gap 11 MEQ/L (5-15) Blood Urea Nitrogen 9 MG/DL (7-18) Creatinine 0.50 MG/DL (0.60-1.30) Estimat Glomerular Filtration 166 ML/MIN Rate (>89) Random Glucose 129 MG/DL (74-106) Calcium Level 7.7 MG/DL (8.5-10.1) Phosphorus Level 1.5 MG/DL (2.5-4.9) Magnesium Level 1.4 MG/DL (1.5-2.5) Activated Partial 66.7 SEC Thromboplast Time (24.3-30.1) Lactic Acid Level 1.4 mmol/L (0.4-2.0) Total Creatine Kinase 23 U/L (39-308) Troponin I 0.02 NG/ML (0.02-0.05) Thyroid Stimulating Hormone 0.983 uIU/ML 3rd Gen (0.358-3.740) Test 11/15/16 11/15/16 11/16/16 11/16/16 16:30 22:00 05:40 22:00 Blood Gas Puncture Site RT RADIAL Blood Gas Patient Temperature 98.6 Blood Gas HCO3 18 mmol/L (22-26) Blood Gas Base Excess -5.0 mmol/L (-2-2) Blood Gas Oxygen Saturation 90 % (90-100) Arterial Blood pH 7.52 (7.380-7.420) Arterial Blood Partial 22 mmHg (38-42) Pressure CO2 Arterial Blood Partial 60 mmHg Pressure O2 (61-120) Arterial Blood Oxygen Content 13.2 Vol % (12.0-20.0) Arterial Blood 1.5 % (0-4) Carboxyhemoglobin Arterial Blood Methemoglobin 1.0 % (0-2) Blood Gas Hemoglobin 10.5 G/DL (12.0-16.0) Oxygen Delivery Device NASAL CANNULA Blood Gas Liter Flow 4 L/M Potassium Level 3.2 MEQ/L 2.9 MEQ/L (3.5-5.1) (3.5-5.1) White Blood Count 35.7 TH/MM3 (4.0-11.0) Red Blood Count 3.12 MIL/MM3 (4.50-5.90) Hemoglobin 9.0 GM/DL (13.0-17.0) Hematocrit 27.3 % (39.0-51.0) Mean Corpuscular Volume 87.5 FL (80.0-100.0) Mean Corpuscular Hemoglobin 28.7 PG (27.0-34.0) Mean Corpuscular Hemoglobin 32.8 % Concent (32.0-36.0) Red Cell Distribution Width 19.0 % (11.6-17.2) Platelet Count 242 TH/MM3 (150-450) Mean Platelet Volume 6.9 FL (7.0-11.0) Neutrophils (%) (Auto) % (16.0-70.0) Lymphocytes (%) (Auto) % (9.0-44.0) Monocytes (%) (Auto) % (0.0-8.0) Eosinophils (%) (Auto) % (0.0-4.0) Basophils (%) (Auto) % (0.0-2.0) Neutrophils # (Auto) TH/MM3 (1.8-7.7) Lymphocytes # (Auto) TH/MM3 (1.0-4.8) Monocytes # (Auto) TH/MM3 (0-0.9) Eosinophils # (Auto) TH/MM3 (0-0.4) Basophils # (Auto) TH/MM3 (0-0.2) CBC Comment AUTO DIFF Differential Total Cells 100 Counted Neutrophils % (Manual) 91 % (16-70) Band Neutrophils % 6 % (0-6) Neutrophils # (Manual) 35.7 TH/MM3 (1.8-7.7) Metamyelocytes 1 % (0-1) Myelocytes 1 % (0-0) Promyelocytes 1 % (0-0) Differential Comment FINAL DIFF MANUAL Platelet Estimate NORMAL (NORMAL) Platelet Morphology Comment NORMAL (NORMAL) Acanthocytes OCC (NORMAL) Activated Partial 36.9 SEC 73.1 SEC Thromboplast Time (24.3-30.1) (24.3-30.1) Sodium Level 137 MEQ/L (136-145) Chloride Level 105 MEQ/L (98-107) Carbon Dioxide Level 19.9 MEQ/L (21.0-32.0) Anion Gap 12 MEQ/L (5-15) Blood Urea Nitrogen 19 MG/DL (7-18) Creatinine 0.43 MG/DL (0.60-1.30) Estimat Glomerular Filtration 197 ML/MIN Rate (>89) Random Glucose 119 MG/DL (74-106) Calcium Level 7.2 MG/DL (8.5-10.1) Protein Corrected Calcium 8.6 MG/DL (8.5-10.1) Phosphorus Level 2.5 MG/DL (2.5-4.9) Magnesium Level 1.7 MG/DL (1.5-2.5) Total Protein 4.6 GM/DL (6.4-8.2) Test 11/17/16 04:25 Activated Partial 121.3 SEC Thromboplast Time (24.3-30.1) Potassium Level 3.3 MEQ/L (3.5-5.1) Result Diagram: 11/16/16 0540 11/17/16 0425 Imaging Last Impressions Chest X-Ray 11/16/16 0000 Signed Impressions: Service Date/Time: October 03:48 - CONCLUSION: Diffuse consolidation and bilateral effusions likely related to diffuse edema. This appears worse on the current exam. Sy Edwards MD Chest CT 11/12/16 0000 Signed Impressions: Service Date/Time: Saturday, November 12, 2016 11:23 - CONCLUSION: 1. Bilateral pleural effusions left greater than right. Bilateral dependent parenchymal lung opacity indicating atelectasis. 2. Decrease in size of right hilar and mediastinal mass/enlarged lymph nodes. Prashant Valdez MD Procedures Thoracentesis and thoracostomy, left chest . Assessment and Plan Disease Oriented Problem List: (1) septic shock / UTI / bacteremia (2) hypoxic respiratory failure (3) metastatic adenocarcinoma of lung, s/p radiation and chemotherapy (4) homelessness (5) Pleural effusions, s/p thoracentesis and thoracostomy (6) malnutrition, failure to thrive (7) history of C. 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 They have 2 children locally. Spiritual: He says he is not spiritual or mandaeism, and he does not desire milk hauler visits. Legal: The patient has capacity for decision-making at this time. When he loses that capacity in the upcoming days, his will be his proxy decision maker. Ethical issues impacting care: None. . Important Contacts Spouse: Tala Trujillo [phone], but she is almost always at the bedside and [place] [facility] [place] essentially [place] . Prognosis The patient is terminal. He likely has just days or weeks to live. . Code Status: No Code Plan * DO NOT RESUSCITATE - per request of patient and spouse 11/16/16. * DECISION-MAKING: The patient has capacity for decision-making at this time. When he loses that capacity in the upcoming days, his will be his proxy decision maker. * GOALS: The patient says that he understands that he is terminal, but he does not want to "give up." He tells me that his oncologist came by 11/17/16 and informed him that he was too weak to get any more chemotherapy. The patient says "I am stubborn, I am going to get stronger." I told him that, with advanced cancer, he will not have improving strength, and in fact will continue to decline. He says, "I know that's what they say, but I am stubborn." The patient's says she supports her 's decisions, and they do not want hospice services at this time. I told him that usually, in advanced cancer patients, life is not shortened by engaging hospice services; he says "not now. ". * SYMPTOMS: The patient still has some dyspnea, although that has improved. If he does transition to comfort care, he will benefit from judicious opiate and benzodiazepine dosing to manage his dyspnea. * Hospice will continue to follow the patient, as I anticipate he will continue to decline in the upcoming days and at some point will accept hospice services. * Palliative Care will continue to follow the patient during this hospitalization . Time Spent Total Floor Time (mins): 37 Face to Face Time (mins): 19 >50% Counseling/Coord of Care: Yes (d/w RN) Attestation To help prompt me to consider important information that might be impacting today's encounter and assessment, information from prior notes written by myself or my colleagues may have been "brought forward" into today's note. My signature on this note, however, is an attestation that I personally performed the exam, history, and/or decision-making noted today, and, unless otherwise indicated, the interactions with patient, family, and staff as well as the review of records all occurred today. I also attest that the listed assessment and stated plan reflect my best clinical judgment today based on the combination of historical information, prior notes, and today's exam/ interactions. When time spent is documented, it refers only to time spent today by the signer, or if indicated, combined time spent today by collaborating physician/nurse practitioner. Luz Martinez MD Nov 17, 2016 16:29
[2016-11-17 16:31] LABS: APTT (PATIENT) 60.8 SEC (24.3-30.1)
[2016-11-17] MEDS: POTASSIUM CHLOR 40 MEQ PREMIX 100 ML IV PRN ×2 (17:58→22:14)
--- NOTE | 2016-11-17 21:34 | PD.ONC.PN ---
Subjective Subjective Remarks I had a long conversation with the patient and his and explained to them that he has several comorbidities and he is acutely very ill and he would not be able to get any treatment for his lung cancer. I discussed his poor prognosis and that his recovery would be very difficult. Answered their questions. He and his stated that they would like to pursue everything possible at this time and hope for his recovery. Continue full supportive care at this. discussed with Dr. Dan Objective Data Date Time Temp Pulse Resp B/P Pulse Ox O2 Delivery O2 Flow Rate FiO2 11/17/16 20:19 93 Nasal Cannula 3.00 11/17/16 16:00 96 Nasal Cannula 3.00 11/17/16 16:00 97.7 89 20 108/61 98 11/17/16 15:00 86 11/17/16 12:00 96 Nasal Cannula 3.00 11/17/16 12:00 97.5 89 20 118/61 95 11/17/16 08:03 96 Nasal Cannula 3.00 11/17/16 08:00 93 Nasal Cannula 3.00 11/17/16 08:00 97.0 83 20 130/72 95 11/17/16 07:00 86 11/17/16 04:00 97.4 88 22 134/77 92 11/17/16 04:00 93 Nasal Cannula 3.00 11/17/16 00:00 93 Nasal Cannula 3.00 11/17/16 00:00 97.7 81 22 135/77 93 11/16/16 23:00 81 11/17/16 11/17/16 11/17/16 07:00 15:00 23:00 Intake Total 360 ml 1273 ml Output Total 30 ml 1400 ml Balance 330 ml -127 ml Result Diagram: 11/16/16 0540 11/17/16 1545 Laboratory Results Laboratory Tests Test 11/16/16 11/17/16 11/17/16 22:00 04:25 15:45 Activated Partial 73.1 SEC 121.3 SEC 60.8 SEC Thromboplast Time Potassium Level 3.3 MEQ/L 2.6 MEQ/L Administered Medications Medications (Trade) Dose Ordered Sig/Elvia Route PRN Reason Start Time Stop Time Status Last Admin Dose Admin IV Flush (NS Flush) 2 ml UNSCH PRN IV FLUSH FLUSH AFTER USING IV ACCESS 11/12/16 11:00 11/15/16 08:28 IV Flush (NS Flush) 2 ml BID IV FLUSH 11/12/16 21:00 11/17/16 10:28 Acetaminophen (Tylenol) 650 mg Q6H PRN PO PAIN 1-10 AND/OR FEVER >101F 11/12/16 12:00 11/13/16 21:07 Pantoprazole Sodium (Protonix Inj) 40 mg DAILY IV 11/13/16 09:00 11/17/16 10:08 Tiotropium [place] (Spiriva Inh) 18 mcg DAILY INH 11/13/16 09:00 11/15/16 08:29 Clopidogrel Bisulfate (Plavix) 75 mg DAILY PO 11/13/16 09:00 Future Hold 11/17/16 10:08 Hydrocortisone Sodium Succinate 100 mg 100 mg Q8HR IV PUSH 11/12/16 14:00 11/17/16 15:48 Heparin Sodium/ Dextrose 250 ml @ 0 mls/hr TITRATE IV 11/12/16 11:15 Future Hold 11/16/16 22:06 Norepinephrine Bitartrate 250 ml @ 0 mls/hr TITRATE IV 11/12/16 13:30 11/12/16 18:48 Vasopressin/ Dextrose (Pitressin Inj/ D5W 100 ml Inj) 100 ml @ 0 mls/hr Q0M IV 11/12/16 13:20 11/14/16 15:43 Miscellaneous Information Patient in critical care unit? Ass... [id number] 11/12/16 18:30 11/12/16 18:30 Potassium Chloride 100 ml @ 50 mls/hr Q2H PRN IV For Potassium 2.8 - 3.2 mEq/L 11/13/16 09:45 11/17/16 17:58 Potassium Chloride 100 ml @ 50 mls/hr Q2H PRN IV For Potassium 2.8 - 3.2 mEq/L 11/13/16 09:45 11/16/16 11:10 Potassium Chloride 100 ml @ 50 mls/hr Q2H PRN IV For Potassium 3.3 - 3.5 mEq/L 11/13/16 09:45 11/17/16 06:47 Magnesium Sulfate 2 gm/Sodium Chloride 100 ml @ 50 mls/hr UNSCH PRN IV For Magnesium 1.2 - 1.6 mg/dL 11/13/16 09:45 11/15/16 16:59 Sodium Phosphate 30 mmol/Sodium Chloride 250 ml @ 42 mls/hr UNSCH PRN IV For Phosphorus < 2.5 mg/dL 11/13/16 09:45 11/15/16 16:59 Potassium Phosphate/Sodium Chloride (Potassium Phosphate Inj/NS 250 ml Inj) 260 ml @ 42 mls/hr UNSCH PRN IV SEE LABEL COMMENTS 11/13/16 09:45 11/13/16 13:05 Insulin Human Regular 1 1 Q6H SQ 11/13/16 10:15 11/16/16 16:15 Cefazolin Sodium/ Dextrose (Ancef 2 Gm Premix) 50 ml @ 100 mls/hr Q8H IV 11/14/16 08:00 11/17/16 17:57 Metronidazole 500 mg 500 mg Q8HR PO 11/14/16 14:00 11/17/16 15:48 Ceftriaxone Sodium 2000 mg/ Sodium Chloride 100 ml @ 200 mls/hr Q24H IV 11/14/16 11:00 11/17/16 11:00 Phenylephrine HCl 40 mg/Dextrose 500 ml @ 0 mls/hr TITRATE IV 11/14/16 17:15 11/15/16 12:54 Amiodarone HCl/ Dextrose (Cordarone Inj/ D5W ([place]) Inj) 250 ml @ 0 mls/hr CONTINUOUS IV 11/15/16 07:45 11/17/16 12:59 Vancomycin HCl (VANCOMYCIN for oral use only) 125 mg QID PO 11/15/16 13:00 11/16/16 22:03 Temazepam (Restoril) 7.5 mg HS PRN PO SLEEP 11/15/16 22:45 11/16/16 22:01 Aspirin (Ecotrin Ec) 81 mg DAILY PO 11/16/16 09:00 Future Hold 11/17/16 09:00 Metoprolol Tartrate (Lopressor Inj) 5 mg Q6H IV PUSH 11/17/16 09:00 11/17/16 15:48 Enalaprilat (Vasotec Inj) 2.5 mg DAILY IV PUSH 11/17/16 09:00 11/17/16 10:07 Objective Remarks GENERAL: acutely ill SKIN: Warm and dry. LYMPHATIC: No adenopathy. CARDIOVASCULAR: Regular rate and rhythm without murmurs. RESPIRATORY:scattered rhonchi, chest tube in place GASTROINTESTINAL: Abdomen soft, non-tender, nondistended. EXTREMITIES: No cyanosis, or edema. Assessment/Plan Problem List: (1) Septic shock Status: Acute Plan: --currently on vasopressors + IV abx --BC no growth --CT chest showed bilateral pleural effusions, left greater than right. 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 --was some improvement of his tumor bulk with concurrent chemotherapy and radiation. --recently seen in the clinic and has declining PFS (3) Pleural effusion Status: Acute Plan: --could be cardiac vs malignant -- If the effusions are malignant, then he will have Stage IV disease. (4) Normocytic anemia Status: Acute Plan: -- recommend keeping his hemoglobin greater than 8. (5) Afib Status: Chronic Plan: --on cardizem drip --on heparin gtt --cardiology following. Assessment 65y/o with NSCLC admitted with sepsis. h/o tobacco abuse. COPD. Hypertension. Hyperlipidemia. 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 Pulmonary embolism. Peripheral vascular disease status post revascularization of the lower extremities. History of coronary artery disease/AK, status post cardiac catheterization with PCI and drug eluding stent. Plan 1. continue supportive care 2. no transfusion needed at present Rj Monteiro MD Nov 17, 2016 21:34
[2016-11-17] MEDS: FUROSEMIDE 40 MG/4 ML VIAL IV PUSH SCH (22:14)
[2016-11-17] MEDS: TEMAZEPAM 7.5 MG CAP PO PRN (22:14)
[2016-11-18] VITALS (12 sets, daily range): BP systolic 93–137; BP diastolic 63–88; PULSE 82–104; RESP 15–23; TEMP 97–98.2; O2SAT 93–100
[2016-11-18] MEDS: METOPROLOL TARTRATE 5 MG/5 ML VIAL IV PUSH SCH ×2 (03:00→09:47)
[2016-11-18] MEDS: ceFAZolin 2 GM PREMIX 50 ML IV SCH ×2 (03:01→09:46)
[2016-11-18] MEDS: AMIODARONE INJ 450 MG in DEXTROSE 5% IN WATE(EXCEL) INJ 241 ML IV SCH ×2 (03:01)
[2016-11-18] MEDS: INSULIN NovoLIN REGULAR SUPPLEMENTAL SCALE SQ SCH ×4 (04:15→21:48)
--- NOTE | 2016-11-18 04:39 | RADRPT ---
EXAM DATE/TIME: 11/18/2016 03:34 [facility] COMPARISON: CHEST SINGLE AP, November 16, 2016, 3:48. INDICATIONS : No significant change has occurred. MEDICAL HISTORY : Hypertension. SURGICAL HISTORY : Appendectomy. ENCOUNTER: Subsequent ACUITY: 1 week PAIN SCORE: 0/10 LOCATION: Bilateral chest FINDINGS: A single view of the chest demonstrates the lungs to be symmetrically aerated without evidence of mas s, infiltrate or effusion. The cardiomediastinal contours are unremarkable. Osseous structures are intact. CONCLUSION: Bilateral effusions and consolidation are again seen right greater than left. Left subclavian line an d left-sided chest tube are present. I do not see a pneumothorax. Heart size normal. Jan Arias MD on November 18, 2016 at 4:37 Board Certified Radiologist. This report was verified electronically.
[2016-11-18] MEDS: metroNIDAZOLE 500 MG TAB PO SCH ×3 (05:39→21:37)
[2016-11-18] MEDS: HYDROCORTISONE SOD SUCCINATE 100 MG VIAL IV PUSH SCH ×3 (05:40→21:37)
[2016-11-18 06:49] LABS: ALKALINE PHOSPHATASE 105 U/L (45-117); ALT (GPT) LESS THAN 6 U/L (12-78); ANION GAP 11 MEQ/L (5-15); AST (GOT) 6 U/L (15-37); BICARBONATE 24.5 MEQ/L (21.0-32.0); BLOOD UREA NITROGEN 13 MG/DL (7-18); CALCIUM-PROTEIN CORRECTED 8.8 MG/DL (8.5-10.1); CHLORIDE 104 MEQ/L (98-107); GLOMERULAR FILTRATION RATE 162 ML/MIN (>89); MAGNESIUM 1.1 MG/DL (1.5-2.5); SODIUM (NA) 139 MEQ/L (136-145); TOTAL BILIRUBIN ADULT 0.2 MG/DL (0.2-1.0)
[2016-11-18 06:53] LABS: POTASSIUM 2.7 MEQ/L (3.5-5.1)
[2016-11-18] MEDS: POTASSIUM CHLOR 40 MEQ PREMIX 100 ML IV PRN ×2 (06:57→09:46)
[2016-11-18 07:09] LABS: AUTOMATED NEUTROPHIL # 47.4 TH/MM3 (1.8-7.7); BASOPHIL % 0.1 % (0.0-2.0); HEMATOCRIT 32.2 % (39.0-51.0); LYMPH % 0.9 % (9.0-44.0); LYMPHOCYTE # 0.4 TH/MM3 (1.0-4.8); MEAN CELL VOLUME 87.4 FL (80.0-100.0); MEAN CORPUSCULAR HEMOGLOBIN 27.8 PG (27.0-34.0); MEAN CORPUSCULAR HGB CONC 31.8 % (32.0-36.0); MONO % 1.9 % (0.0-8.0); NEUT % 97.1 % (16.0-70.0); PLATELET COUNT 323 TH/MM3 (150-450); RED BLOOD COUNT 3.69 MIL/MM3 (4.50-5.90); WHITE BLOOD COUNT 48.8 TH/MM3 (4.0-11.0)
[2016-11-18 07:43] LABS: HEMO FLAGS AUTO DIFF
[2016-11-18] MEDS: cefTRIAXone INJ 2,000 MG in SODIUM CHLORIDE 0.9% INJ 100 ML IV SCH (09:46)
[2016-11-18] MEDS: SODIUM CHLORIDE 0.9% FLUSH 5 ML FLUSH IV FLUSH SCH ×2 (09:46→19:56)
[2016-11-18] MEDS: SODIUM CHLORIDE 0.9% FLUSH 5 ML FLUSH IV FLUSH PRN (09:47)
[2016-11-18] MEDS: ENALAPRILAT 2.5 MG/2 ML VIAL IV PUSH SCH (09:47)
[2016-11-18] MEDS: FUROSEMIDE 40 MG/4 ML VIAL IV PUSH SCH ×2 (09:47→19:55)
[2016-11-18] MEDS: PANTOPRAZOLE SODIUM 40 MG VIAL IV SCH (09:53)
[2016-11-18] MEDS: VANCOMYCIN 500 MG VIAL (FOR ORAL USE ONLY) PO SCH ×2 (09:53→14:31)
[2016-11-18] MEDS: TIOTROPIUM BROMIDE 18 MCG INH INH SCH (09:54)
--- NOTE | 2016-11-18 10:17 | PD.CARD.PN ---
Subjective Subjective Remarks Denies pain, dyspnea, dizziness, nausea, palpitations. Objective Medications Item Value Date Time Furosemide 40 mg 11/17/16 2100 (Lasix Inj) Q12H/IV PUSH 11/18/16 0947 Metoprolol 5 mg 11/17/16 0900 Tartrate Q6H/IV PUSH 11/18/16 0947 (Lopressor Inj) Enalaprilat 2.5 mg 11/17/16 0900 (Vasotec Inj) DAILY/IV PUSH 11/18/16 0947 Amiodarone HCl 250 ml @ 0 mls/hr 11/15/16 0745 450 mg/Dextrose CONTINUOUS/IV 11/18/16 0301 Vital Signs / I&O Vital Signs Date Time Temp Pulse Resp B/P Pulse Ox O2 Delivery O2 Flow Rate FiO2 11/18/16 07:45 98 Nasal Cannula 2.00 11/18/16 04:00 97 Nasal Cannula 3.00 11/18/16 04:00 98.2 86 19 132/80 97 11/18/16 00:00 96 Nasal Cannula 3.00 11/18/16 00:00 98.2 82 19 116/74 96 11/17/16 23:00 88 11/17/16 20:19 93 Nasal Cannula 3.00 11/17/16 20:00 98.2 88 27 114/80 94 11/17/16 20:00 94 Nasal Cannula 3.00 11/17/16 16:00 96 Nasal Cannula 3.00 11/17/16 16:00 97.7 89 20 108/61 98 11/17/16 15:00 86 11/17/16 12:00 96 Nasal Cannula 3.00 11/17/16 12:00 97.5 89 20 118/61 95 I/O 11/17/16 11/17/16 11/17/16 11/18/16 11/18/16 11/18/16 07:00 15:00 23:00 07:00 15:00 23:00 Intake Total 360 ml 1273 ml 424 ml 202 ml Output Total 30 ml 1400 ml 1200 ml 1450 ml Balance 330 ml -127 ml -776 ml -1248 ml Intake Oral 50 ml 240 ml IV Total 310 ml 1033 ml 424 ml 202 ml Output Urine Total 20 ml 1400 ml 1200 ml 1400 ml Chest Tube Drainage Total 10 ml 50 ml Physical Exam GENERAL: Well developed, well nourished. No acute distress. HEENT: Jugular venous pressure is normal. CHEST: Diminished breath sounds diffusely. CARDIAC: Regular rate and rhythm without S3, S4, or murmur. ABDOMEN: Soft, nontender, no hepatosplenomegaly. Bowel sounds present. EXTREMITIES: No clubbing, cyanosis, or edema. Laboratory Laboratory Tests Test 11/17/16 11/17/16 11/18/16 15:45 22:30 05:45 Activated Partial 60.8 SEC Thromboplast Time Potassium Level 2.6 MEQ/L 4.2 MEQ/L 2.7 MEQ/L White Blood Count 48.8 TH/MM3 Red Blood Count 3.69 MIL/MM3 Hemoglobin 10.3 GM/DL Hematocrit 32.2 % Mean Corpuscular Volume 87.4 FL Mean Corpuscular Hemoglobin 27.8 PG Mean Corpuscular Hemoglobin 31.8 % Concent Red Cell Distribution Width 19.0 % Platelet Count 323 TH/MM3 Mean Platelet Volume 7.0 FL Neutrophils (%) (Auto) 97.1 % Lymphocytes (%) (Auto) 0.9 % Monocytes (%) (Auto) 1.9 % Eosinophils (%) (Auto) 0.0 % Basophils (%) (Auto) 0.1 % Neutrophils # (Auto) 47.4 TH/MM3 Lymphocytes # (Auto) 0.4 TH/MM3 Monocytes # (Auto) 0.9 TH/MM3 Eosinophils # (Auto) 0.0 TH/MM3 Basophils # (Auto) 0.0 TH/MM3 CBC Comment AUTO DIFF Sodium Level 139 MEQ/L Chloride Level 104 MEQ/L Carbon Dioxide Level 24.5 MEQ/L Anion Gap 11 MEQ/L Blood Urea Nitrogen 13 MG/DL Creatinine 0.51 MG/DL Estimat Glomerular Filtration 162 ML/MIN Rate Random Glucose 145 MG/DL Calcium Level 7.4 MG/DL Protein Corrected Calcium 8.8 MG/DL Magnesium Level 1.1 MG/DL Total Bilirubin 0.2 MG/DL Aspartate Amino Transf 6 U/L (AST/SGOT) Alanine Aminotransferase LESS THAN 6 U/L (ALT/SGPT) Alkaline Phosphatase 105 U/L Total Protein 4.7 GM/DL Albumin 1.7 GM/DL Assessment and Plan Problem List: (1) Paroxysmal atrial fibrillation Assessment and Plan: Remains in NSR. Recommend change IV Amiodarone/ metoprolol to oral administration. With EF now down to about 30% thromboembolic risk at least moderately elevated. (2) CAD (coronary artery disease) Assessment and Plan: History of STEMI, stent diagonal 06/2016. Stable. No recurrent angina. Resume Plavix, baby aspirin when possible. (3) Dilated cardiomyopathy Assessment and Plan: Echo this admission reviewed. Suspect EF closer to 30% rather than 35-40%. CXR suggestive of CHF. REC diuresis, beta elan, NICHOLAS- I. Await thoracentesis. Code Status No Code Discussed Condition With patient and Problem Qualifiers (1) CAD (coronary artery disease): Qualified Code: I25.10 - Coronary artery disease involving [place] coronary artery of [place] heart without angina pectoris Rene Kaiser MD Nov 18, 2016 10:17
[2016-11-18] MEDS: METOPROLOL TARTRATE 25 MG TAB PO SCH ×2 (10:30→19:56)
--- NOTE | 2016-11-18 10:51 | PD.PROCEDR ---
Procedure Note Procedure Procedure Notes: Right Thoracentesis Indication: Large right pleural effusion A time-out was completed verifying correct patient, procedure, site, positioning , and special equipment if applicable. The patient's right side was prepped and draped in a sterile manner after the appropriate infiltration level was confirmed by ultrasound. 1% lidocaine was used anesthetize the surrounding skin. A 10-blade scalpel used to make the incision. The thoracentesis Angio cath was then introduced without difficulty and needle was removed. Sample pleural fluid was collected for further lab study. Catheter was connected to Vacutainer bottle and approximately 1250 clear straw-colored pleural fluid drained. A post-procedure chest x-ray was ordered and the fluid will be sent for several studies. Estimated Blood Loss: <1 ml Shelia Dan MD Nov 18, 2016 10:51
--- NOTE | 2016-11-18 11:13 | HHI.CCPN ---
Subjective Remarks/Hospital Course This is a 64-year-old male with history of COPD, hypertension, coronary artery disease, STEMI on 07/08/16 s/p PCI and DELMY (Dr. Crouch), history of C. difficile colitis, non-small cell lung cancer receiving chemoradiation per Dr. Monteiro, history of pulmonary embolism on Lovenox who was admitted to hospital recently from 07/08-08/31/16 with above diagnoses. During that admission he was noted to have a mediastinal and lung mass which was invading bilateral mainstem bronchi- subsequently diagnosed as a non-small cell lung cancer(adenocarcinoma). He had complete atelectasis of the right lung last admission which required bronchoscopy 2. With chemoradiation obstruction improved with resolution of atelectasis. [facility] fever, hypotension, confusion. Apparently patient was to be started on antibiotics for a UTI however prior to starting the antibiotics, he was found to be profoundly hypotensive, confused and was sent to ER. The patient also was noted to have diarrhea. His initial systolic blood pressure was in the 70s, rectal temperature of 100.4 and also tachycardic with a heart rate in 100's. Source of infection seems to be UTI, though HCAP cannot be ruled out. X-ray and CT of the chest shows bilateral pleural effusions left larger than right associated with infiltrate/atelectasis. He has multiple skin ulcers including his sacral area and his bilateral ankles. Patient received 3 L normal saline bolus with improvement in blood pressure. Levophed ordered. I have started patient on stress dose steroids as he was receiving prednisone at the prison . Patient received Zosyn in the ED. I will place patient on cefepime, Flagyl (hx of C Diff) and IV vancomycin. Infectious disease consulted for septic shock in an immunocompromised patient. 11/13 Patient is on 35% VM, afebrile. Off Levophed 11/14 Patient was started on Cardizem drip 15mg/hr overnight in addition was given Lopressor 2.5mg IV x1 for tachycardia. Afebrile. On Heparin drip. s/p transfusion 1u PRBC for Hgb 6.9 now 8.1. 11/15 Patient is on Neosyn 40 mics, off vasopressin. He was given Amiodarone bolus overnight for Afib with RVR HR remains 120-130's. Afebrile. 11/16: Remains on Cardizem and amiodarone. Off vasopressors. Patient's CXR appears worse. He does not appear in distress. Palliative care consulted and family and patient will decide on hospice after d/w Dr. Monteiro 11/17: Bedside ultrasound shows fairly large left pleural effusion despite chest tube. Possibly loculated. We'll hold off thoracentesis to additional chest tube and the patient makes decisions about comfort measures versus aggressive care. Patient waiting to talk to Dr. Monteiro to decide on hospice 11/18: Patient declined hospice and wants to continue aggressive care at this time. White count has increased to 48.9 with 97% neutrophils, I have requested ID reevaluation. Large right pleural effusion drained today 1.2 L clear fluid. UO 4L in 24 hours Objective Vital Signs Date Time Temp Pulse Resp B/P Pulse Ox O2 Delivery O2 Flow Rate FiO2 11/18/16 07:45 98 Nasal Cannula 2.00 11/18/16 04:00 98.2 86 19 132/80 Intake and Output 11/17/16 11/17/16 11/18/16 08:00 16:00 00:00 Intake Total 360 ml 1273 ml 424 ml Output Total 30 ml 1400 ml 1200 ml Balance 330 ml -127 ml -776 ml Result Diagram: 11/18/16 0545 11/18/16 0545 Imaging Last Impressions Chest X-Ray 11/14/16 0600 Signed Impressions: Service Date/Time: Monday, November 14, 2016 05:00 - CONCLUSION: Diffuse increased density likely representing a combination of edema, bilateral effusions, and some degree of consolidation and/or atelectasis at the mid and lower lungs. Sy Edwards MD Chest CT 11/12/16 0000 Signed Impressions: Service Date/Time: Saturday, November 12, 2016 11:23 - CONCLUSION: 1. Bilateral pleural effusions left greater than right. Bilateral dependent parenchymal lung opacity indicating atelectasis. 2. Decrease in size of right hilar and mediastinal mass/enlarged lymph nodes. Prashant Valdez MD Objective Remarks GENERAL: Elderly ill cachectic gentleman who appears pale, ill SKIN: Warm and dry. HEAD: Atraumatic. Normocephalic. EYES: No scleral icterus. No injection or drainage. ENT: No nasal bleeding or discharge. Dry mucous membranes NECK: Trachea midline. No JVD. CARDIOVASCULAR: Tachycardic with regular rhythm. No murmur appreciated. On amiodarone infusion. Hepin held for thoracentesis RESPIRATORY: No accessory muscle use, diminished breath sound at bases. L chest tube with minimal output. US shows large r pl effusion. s/p thoracentesis 11/18 with 1.2 L removed GASTROINTESTINAL: Abdomen soft, cachectic, non-tender, nondistended. BACK/SKIN: The patient has stage I - II pressure sores on his presacral area and ankles. MUSCULOSKELETAL: Bilateral ankle pressure wounds. NEUROLOGICAL: Opens eyes to command and follows commands. Moves all extremities A/P Assessment and Plan NEURO: Acute metabolic encephalopathy Previous CVA -Minimize sedation, monitor neuro status closely. Awake and alert RESP: Respiratory insufficiency Bilateral pleural effusion Possible HCAP COPD Adenocarcinoma of the lung -Wean FiO2 to keep saturation more than 90% -DuoNeb every 6 hours scheduled and when necessary -At home on chronic prednisone, on Solucortef 100mg IV Q8-reduce to 50 q 8 -s/p CT placement 11/12 for left pleural effusion-monitor CT drainage. Exudative effusion per LDH criteria. -Drainage is minimal, but patient continues to have moderate left pleural effusion-plan for thoracentesis today -Status post right thoracentesis with 1.2L fluid removed, appears transudative -After discussion with Dr. Joseph patient wants to continue aggressive care, proceed with second lower chest tube placement -Chemoradiation per Dr. Monteiro CV: Acute on chronic systolic heart failure Ischemic cardiomyopathy Afib with RVR Hypotension Coronary artery disease Status post STEMI 07/08/16 with PCI/DELMY to D1 Started on IV Lasix 40 mg IV q12 on 11/17/16 with excellent urine output DC Amiodarone drip -change to PO 400 mg daily and metoprolol 12.5 mg by mouth twice a day EF 30% according to him Continue Plavix GI: Diarrhea History C. difficile colitis - Diet per speech recommendation - On IV IV Protonix : -Monitor renal function, I/O's, electrolytes replacement per protocol ID: Staph Bacteremia Severe sepsis with worsening leukocytosis UTI Possible HCAP History of C. difficile colitis -Continue with abx per ID- Dr. Fabien Michel ( Rocephin, Cefazolin, Flagyl) PO Vanco 125mg QID. -monitor for signs of infections ( Fever, WBC) repeat CBC, check C-diff PCR -BC 11/13: NGTD -BC 11/12 : Staph Aureus -Urine cx 11/12: Proteus Mirabilis, staph species -Strep pneumonia and Legionella urinary Ag negative -Fluid cx 11/12: NGTD HEME: Non-small cell lung cancer Pulmonary embolism diagnosed on 07/08/16 -Monitor CBC, -Had been started on chemoradiation therapy Dr. Monteiro -[facility] is following- Dr. Monteiro -Heparin on hold for thoracentesis ENDO: -Electrolyte replacement protocol, sliding scale insulin for glycemic control PROPH: -Bilateral lower extremity SCDs. IV heparin, IV Protonix LINES: -Utilize peripheral IVs, Left subclavian CVP placed 11/12 Level 3 Shelia Dan MD Nov 18, 2016 11:12
--- NOTE | 2016-11-18 11:51 | RADRPT ---
EXAM DATE/TIME: 11/18/2016 10:55 [facility] COMPARISON: CHEST SINGLE AP, November 18, 2016, 3:34. INDICATIONS : Post right thoracentesis MEDICAL HISTORY : Hypertension. SURGICAL HISTORY : None. ENCOUNTER: Initial ACUITY: 1 day PAIN SCORE: Non-responsive. LOCATION: Right chest FINDINGS: Single AP view of the chest. Left-sided subclavian central venous catheter and left-sided chest tube remain in place. Right-sided pleural effusion no longer seen. Left-sided pleural effusion unchanged. No evidence of pneumothorax. Cardiomediastinal silhouette unchanged. CONCLUSION: 1. No change in left pleural effusion. 2. Right pleural effusion no longer seen. 3. No evidence of pneumothorax. Prashant Valdez MD on November 18, 2016 at 11:48 Board Certified Radiologist. This report was verified electronically.
[2016-11-18] MEDS: POTASSIUM CHLORIDE 10 MEQ CONTROLLED RELEASE TAB PO SCH (12:08)
[2016-11-18] MEDS: AMIODARONE 200 MG TAB PO SCH (12:09)
[2016-11-18 13:05] LABS: TOTAL PROTEIN,PLEURAL FLUID 1.4 GM/DL
[2016-11-18] MEDS ORDERED: MORPHINE SULFATE 8 MG/ML INJ ONE (14:06)
[2016-11-18] MEDS ORDERED: ALBUMIN HUMAN 25% 25 GM/100 ML BAGP IV ONE ×2 (14:17→14:45)
[2016-11-18] MEDS ORDERED: VASOPRESSIN INJ 40 UNITS in DEXTROSE 5% IN WATER 100ML INJ 98 ML IV SCH ×2 (14:45)
[2016-11-18] MEDS ORDERED: MORPHINE SULFATE 4 MG/ML INJ IV ONE (14:45)
[2016-11-18 14:47] LABS: PLEURAL FLUID LYMPHS 33 %
--- NOTE | 2016-11-18 14:52 | PD.PROCEDR ---
Procedure Note Procedure PIGTAIL CHEST TUBE) PLACEMENT Date: 11/18/16 Indication: large L pleural effusion despite large L chest tube Performed by Dr. Shelia Dan MD A time-out was completed verifying correct patient, procedure, site, positioning , and special equipment if applicable. The patient was positioned appropriately for chest tube placement. The patient's left chest was prepped and draped in sterile fashion. 1% Lidocaine was used to anesthetize the surrounding skin area. A 1 cm skin incision was made at the site marked with US. 18 f access needle was introduced into the pleural space, and dark leni colored pleura fluid was aspirated. A guide wire was placed and track was dilated. A 10F pigtail chest tube was inserted over guide wire using Seldinger technique. The chest tube was sutured securely to the skin and a sterile Stay Fix dressing applied. A Pleuro-Vac was attached to the chest tube and a chest x-ray ordered Estimated Blood Loss: <1ml The patient tolerated the procedure well and there were no complications. There was intermittent airleak and initial output was 400 ml of dark leni fluid Shelia Dan MD Nov 18, 2016 14:52
--- NOTE | 2016-11-18 15:20 | RADRPT ---
EXAM DATE/TIME: 11/18/2016 14:38 [facility] COMPARISON: CHEST SINGLE AP, November 18, 2016, 10:55. INDICATIONS : Short of Breath, Left Side Pigtail Chest Tube. MEDICAL HISTORY : Hypertension. SURGICAL HISTORY : Appendectomy. ENCOUNTER: Subsequent ACUITY: 1 week PAIN SCORE: 0/10 LOCATION: Bilateral chest FINDINGS: A single view of the chest demonstrates 2 left-sided chest tubes. No pneumothorax. Left subclavian ce ntral line in stable position. Left lung is better aerated. Right midlung and right basilar density. The cardiomediastinal contours are unremarkable. Right clavicle fracture. CONCLUSION: Left lung better aerated. 2 left-sided chest tubes without pneumothorax. Right midlung and right basilar density. Albaro Singleton MD on November 18, 2016 at 15:17 Board Certified Radiologist. This report was verified electronically.
[2016-11-18 15:23] LABS: BANDS 7 % (0-6); METAMYELOCYTES 1 % (0-1); MYELOCYTES 3 % (0-0); NEUTROPHIL # MANUAL DIFF 48.3 TH/MM3 (1.8-7.7); POLYS (SEG NEUTROPHILS) 88 % (16-70); WBC DIFF SAMPLE 100
[2016-11-18 15:24] LABS: PLATELET ESTIMATE SMEAR NORMAL (NORMAL); PLATELET MORPHOLOGY NORMAL (NORMAL); SCAN/DIFF FINAL DIFF MANUAL
--- NOTE | 2016-11-18 15:53 | HHI.IDPN ---
Subjective Subjective Remarks ID COVERAGE is a 65 y/o CM who looks older than stated age. His PMHx is significant for COPD, pulmonary embolism, non-small cell lung cancer diagnosis adenocarcinoma along with the mediastinal mass status post chemotherapy as well as radiation therapy who follows with Dr. Rj Monteiro. Patient was recently admitted on July 08, 2016 for chest pain diagnosed with ST elevation [place] status post PCI and DELMY by Dr. Crouch cardiology. Patient also was admitted between July 08 to August 31, 2016 and underwent evaluation with diagnosis of non-small cell adenoca lung cancer. At that time was noted to have a lung mass which was invading bilateral mainstem bronchi this was diagnosed to be adenocarcinoma non-small cell lung cancer. He had complete atelectasis of the right lung which required bronchoscopy 2. Patient also underwent chemoradiation therapy and the obstruction was resolved reportedly. Notes reviewed Asked by Dr Dan to see to evaluate for worsening leukocytosis Temps ok Off pressors Has R thoracentesis, L tap and placement of second CT Has been on Rx for MSSA Bacteremia and Proteus/MSSA UTI His pleural fluid C/S L is negative Last BC, one with [facility] Has central line place 11/12 No diarrhea Monitor shows NSR Patient declined hospice, and still wants aggressive care Antibiotics Ancef IV Ceftriaxone IV Flagyl oral Lines Line sites with no e/o infection Past Medical History reviewed Allergies: Coded Allergies: No Known Allergies (Unverified , 07/08/16) Objective . Vital Signs Date Time Temp Pulse Resp B/P Pulse Ox O2 Delivery O2 Flow Rate FiO2 11/18/16 07:45 98 Nasal Cannula 2.00 11/18/16 04:00 97 Nasal Cannula 3.00 11/18/16 04:00 98.2 86 19 132/80 97 11/18/16 00:00 96 Nasal Cannula 3.00 11/18/16 00:00 98.2 82 19 116/74 96 11/17/16 23:00 88 11/17/16 20:19 93 Nasal Cannula 3.00 11/17/16 20:00 98.2 88 27 114/80 94 11/17/16 20:00 94 Nasal Cannula 3.00 11/17/16 16:00 96 Nasal Cannula 3.00 11/17/16 16:00 97.7 89 20 108/61 98 11/17/16 11/17/16 11/18/16 15:00 23:00 07:00 Intake Total 1273 ml 424 ml 202 ml Output Total 1400 ml 1200 ml 1450 ml Balance -127 ml -776 ml -1248 ml Intake Oral 240 ml IV Total 1033 ml 424 ml 202 ml Output Urine Total 1400 ml 1200 ml 1400 ml Chest Tube Drainage Total 50 ml . Laboratory Tests Test 11/18/16 05:45 White Blood Count 48.8 TH/MM3 Red Blood Count 3.69 MIL/MM3 Hemoglobin 10.3 GM/DL Hematocrit 32.2 % Mean Corpuscular Volume 87.4 FL Mean Corpuscular Hemoglobin 27.8 PG Mean Corpuscular Hemoglobin 31.8 % Concent Red Cell Distribution Width 19.0 % Platelet Count 323 TH/MM3 Mean Platelet Volume 7.0 FL Neutrophils (%) (Auto) 97.1 % Lymphocytes (%) (Auto) 0.9 % Monocytes (%) (Auto) 1.9 % Eosinophils (%) (Auto) 0.0 % Basophils (%) (Auto) 0.1 % Neutrophils # (Auto) 47.4 TH/MM3 Lymphocytes # (Auto) 0.4 TH/MM3 Monocytes # (Auto) 0.9 TH/MM3 Eosinophils # (Auto) 0.0 TH/MM3 Basophils # (Auto) 0.0 TH/MM3 CBC Comment AUTO DIFF Differential Total Cells 100 Counted Neutrophils % (Manual) 88 % Band Neutrophils % 7 % Monocytes % 1 % Neutrophils # (Manual) 48.3 TH/MM3 Metamyelocytes 1 % Myelocytes 3 % Differential Comment FINAL DIFF MANUAL Platelet Estimate NORMAL Platelet Morphology Comment NORMAL Laboratory Tests Test 11/17/16 11/17/16 11/17/16 11/18/16 04:25 15:45 22:30 05:45 Potassium Level 3.3 MEQ/L 2.6 MEQ/L 4.2 MEQ/L 2.7 MEQ/L Sodium Level 139 MEQ/L Chloride Level 104 MEQ/L Carbon Dioxide Level 24.5 MEQ/L Anion Gap 11 MEQ/L Blood Urea Nitrogen 13 MG/DL Creatinine 0.51 MG/DL Estimat Glomerular Filtration 162 ML/MIN Rate Random Glucose 145 MG/DL Calcium Level 7.4 MG/DL Protein Corrected Calcium 8.8 MG/DL Magnesium Level 1.1 MG/DL Total Bilirubin 0.2 MG/DL Aspartate Amino Transf 6 U/L (AST/SGOT) Alanine Aminotransferase LESS THAN 6 U/L (ALT/SGPT) Alkaline Phosphatase 105 U/L Total Protein 4.7 GM/DL Albumin 1.7 GM/DL Microbiology Date/Time Procedure Status Source Growth 11/18/16 10:40 Gram Stain Received Fluid Pleural Fluid Pending 11/18/16 10:40 Body Fluid Culture Received Fluid Pleural Fluid Pending 11/18/16 10:40 Acid Fast Stain Received Fluid Pleural Fluid Pending 11/18/16 10:40 Mycobacterial Culture Received Fluid Pleural Fluid Pending 11/18/16 10:40 Fungal Smear Received Fluid Pleural Fluid Pending 11/18/16 10:40 Fungal Culture Received Fluid Pleural Fluid Pending Imaging Chest X-Ray 11/18/16 0600 Signed Impressions: Service Date/Time: Friday, November 18, 2016 03:34 - CONCLUSION: Bilateral effusions and consolidation are again seen right greater than left. Left subclavian line and left-sided chest tube are present. I do not see a pneumothorax. Heart size normal. Jan Arias MD Chest CT 11/12/16 0000 Signed Impressions: Service Date/Time: Saturday, November 12, 2016 11:23 - CONCLUSION: 1. Bilateral pleural effusions left greater than right. Bilateral dependent parenchymal lung opacity indicating atelectasis. 2. Decrease in size of right hilar and mediastinal mass/enlarged lymph nodes. Prashant Valdez MD Chest X-Ray 11/12/16 0908 Signed Impressions: Service Date/Time: Saturday, November 12, 2016 09:30 - CONCLUSION: Left greater than right pleural effusions. Bilateral patchy parenchymal opacity in the right lung apex and left perihilar region. Prashant Valdez MD Chest CT 11/12/16 0000 Signed Impressions: Service Date/Time: Saturday, November 12, 2016 11:23 - CONCLUSION: 1. Bilateral pleural effusions left greater than right. Bilateral dependent parenchymal lung opacity indicating atelectasis. 2. Decrease in size of right hilar and mediastinal mass/enlarged lymph nodes. Prashant Valdez MD Physical Exam GENERAL: Chronically ill appearing male who looks older stated age. NAD. Awake and alert SKIN: Dry skin, warm. No generalized rash. HEAD: Atraumatic. Normocephalic. No temporal or scalp tenderness. EYES: Pale conjunctiva, no petechia. No scleral icterus. No injection or drainage. ENT: Nose without bleeding, or purulent drainage. Dry oral mucosa. Throat without erythema, or exudate. NECK: Trachea midline. Supple, nontender, no meningeal signs. CARDIOVASCULAR: Heart sounds audible. No murmur appreciated. RESPIRATORY: Breath sounds decreased at both bases. 2 CT on L side, one more serosanguineous output than the other. GASTROINTESTINAL: Abdomen soft, non-tender, nondistended. BS (+) MUSCULOSKELETAL: Pressure ulcers noted on lower extremity as well as sacral region. Mild pedal edema. No joint effusions. NEUROLOGICAL: Alert and oriented. Psych Calm and cooperative IV line sites with no evidence of infection. : Noble in place, with some sediment Assessment & Plan Remarks Septic shock present on admission. MSSA bacteremia MSSA in urine : ? translocation. Proteus UTI, catheter related Prior h.o cdiff. - no diarrhea currently Bilateral pleural effusions - has had jonnie tap, has 2 CT on L Acute anemia: Blood loss query GI versus other site. Acute respiratory failure. Mild abnormal LFTs: ? sepsis related Acute metabolic encephalopathy: Likely infection related. Immune compromised host. Non-small cell adenocarcinoma of the lung with obstruction and mediastinal mass. Worsening leukocytosis - ?new infection Recs: Agree with repeat BC UA and C/S Follow new pleural fluid C/S Add IV Vancomycin Change to cefepime and stop Ancef and Rocephin Add antifungal Continue Flagyl Follow CBC Monitor progress Stop oral vanco Will follow Spoke with WilfredRhianna MD Nov 18, 2016 15:53
[2016-11-18] MEDS ORDERED: VANCOMYCIN INJ 1,000 MG in SODIUM CHLOR 0.9% 250 ML INJ 250 ML IV ONE (16:15)
[2016-11-18] MEDS ORDERED: Vancomycin Consult Pharmacy 1 EA OTHER SCH (16:15)
[2016-11-18] MEDS: CEFEPIME INJ 2,000 MG in SODIUM CHLORIDE 0.9% INJ 100 ML IV SCH (17:54)
[2016-11-18] MEDS: MICAFUNGIN INJ 100 MG in SODIUM CHLORIDE 0.9% INJ 100 ML IV SCH (17:54)
[2016-11-18] MEDS: VANCOMYCIN INJ 1,500 MG in SODIUM CHLORID 0.9% 500 ML INJ 500 ML IV SCH (17:55)
[2016-11-18] MEDS: TEMAZEPAM 7.5 MG CAP PO PRN (21:37)
[2016-11-18] MEDS: POTASSIUM CHLOR 20 MEQ PREMIX 100 ML IV PRN (23:15)
[2016-11-19] VITALS (14 sets, daily range): BP systolic 87–149; BP diastolic 50–82; PULSE 63–96; RESP 13–19; TEMP 97.1–98; O2SAT 96–100
[2016-11-19] MEDS: POTASSIUM CHLOR 20 MEQ PREMIX 100 ML IV PRN ×3 (01:58→05:02)
[2016-11-19] MEDS: INSULIN NovoLIN REGULAR SUPPLEMENTAL SCALE SQ SCH ×4 (04:15→22:15)
--- NOTE | 2016-11-19 04:58 | RADRPT ---
EXAM DATE/TIME: 11/19/2016 03:22 [facility] COMPARISON: CHEST SINGLE AP, November 18, 2016, 14:38. INDICATIONS : Shortness of breath, possible pulmonary disease. MEDICAL HISTORY : Hypertension. SURGICAL HISTORY : Appendectomy. ENCOUNTER: Subsequent ACUITY: 1 week PAIN SCORE: 0/10 LOCATION: Bilateral chest FINDINGS: Left basilar chest tube, left subclavian line and left apical chest tube again noted. There is a smal l right effusion and patchy bilateral basilar airspace disease, slightly increased. CONCLUSION: Mild increased airspace disease. Jan Arias MD on November 19, 2016 at 4:56 Board Certified Radiologist. This report was verified electronically.
[2016-11-19] MEDS: CEFEPIME INJ 2,000 MG in SODIUM CHLORIDE 0.9% INJ 100 ML IV SCH ×2 (05:02→18:11)
[2016-11-19] MEDS: metroNIDAZOLE 500 MG TAB PO SCH ×3 (05:37→20:43)
[2016-11-19] MEDS: VANCOMYCIN INJ 1,500 MG in SODIUM CHLORID 0.9% 500 ML INJ 500 ML IV SCH ×2 (05:37→18:11)
[2016-11-19] MEDS: HYDROCORTISONE SOD SUCCINATE 100 MG VIAL IV PUSH SCH ×3 (05:38→20:42)
[2016-11-19 05:45] LABS: AUTOMATED NEUTROPHIL # 44.3 TH/MM3 (1.8-7.7); BASOPHIL % 0.1 % (0.0-2.0); HEMATOCRIT 29.8 % (39.0-51.0); LYMPH % 0.9 % (9.0-44.0); LYMPHOCYTE # 0.4 TH/MM3 (1.0-4.8); MEAN CELL VOLUME 87.6 FL (80.0-100.0); MEAN CORPUSCULAR HEMOGLOBIN 28.5 PG (27.0-34.0); MEAN CORPUSCULAR HGB CONC 32.5 % (32.0-36.0); MONO % 2.4 % (0.0-8.0); NEUT % 96.6 % (16.0-70.0); PLATELET COUNT 284 TH/MM3 (150-450); RED CELL DISTRIBUTION WIDTH 18.8 % (11.6-17.2); WHITE BLOOD COUNT 45.9 TH/MM3 (4.0-11.0)
[2016-11-19 05:55] LABS: HEMO FLAGS AUTO DIFF
[2016-11-19 05:58] LABS: ALT (GPT) LESS THAN 6 U/L (12-78); ANION GAP 9 MEQ/L (5-15); AST (GOT) 8 U/L (15-37); BLOOD UREA NITROGEN 14 MG/DL (7-18); CHLORIDE 105 MEQ/L (98-107); GLOMERULAR FILTRATION RATE 197 ML/MIN (>89); POTASSIUM 3.9 MEQ/L (3.5-5.1); SODIUM (NA) 140 MEQ/L (136-145)
[2016-11-19 06:01] LABS: ALKALINE PHOSPHATASE 81 U/L (45-117); CALCIUM-PROTEIN CORRECTED 8.8 MG/DL (8.5-10.1); TOTAL BILIRUBIN ADULT 0.3 MG/DL (0.2-1.0)
[2016-11-19] MEDS ORDERED: HEPARIN-D5W INJ 250 ML IV SCH (07:30)
[2016-11-19] MEDS: PANTOPRAZOLE SODIUM 40 MG VIAL IV SCH (08:46)
[2016-11-19] MEDS: ENALAPRILAT 2.5 MG/2 ML VIAL IV PUSH SCH (08:47)
[2016-11-19] MEDS: FUROSEMIDE 40 MG/4 ML VIAL IV PUSH SCH ×2 (08:49→20:43)
[2016-11-19] MEDS: POTASSIUM CHLORIDE 10 MEQ CONTROLLED RELEASE TAB PO SCH (08:50)
[2016-11-19] MEDS: METOPROLOL TARTRATE 25 MG TAB PO SCH ×2 (08:51→20:43)
[2016-11-19] MEDS: AMIODARONE 200 MG TAB PO SCH (08:51)
[2016-11-19 08:55] LABS: HEMATOCRIT 30.1 % (39.0-51.0); MEAN CELL VOLUME 87.7 FL (80.0-100.0); MEAN CORPUSCULAR HEMOGLOBIN 28.3 PG (27.0-34.0); MEAN CORPUSCULAR HGB CONC 32.2 % (32.0-36.0); PLATELET COUNT 289 TH/MM3 (150-450); RED BLOOD COUNT 3.44 MIL/MM3 (4.50-5.90); RED CELL DISTRIBUTION WIDTH 18.8 % (11.6-17.2); WHITE BLOOD COUNT 45.5 TH/MM3 (4.0-11.0)
[2016-11-19] MEDS: SODIUM CHLORIDE 0.9% FLUSH 5 ML FLUSH IV FLUSH PRN (09:00)
[2016-11-19] MEDS: SODIUM CHLORIDE 0.9% FLUSH 5 ML FLUSH IV FLUSH SCH ×2 (09:00→20:43)
[2016-11-19 09:01] LABS: REVIEW FLAG FINAL
[2016-11-19 09:08] LABS: APTT (PATIENT) 35.3 SEC (24.3-30.1); INTERNATIONAL NORMALIZED RATIO 1.2 RATIO; PROTHROMBIN TIME - PATIENT 13.4 SEC (9.8-11.6)
[2016-11-19] MEDS: TIOTROPIUM BROMIDE 18 MCG INH INH SCH (09:09)
--- NOTE | 2016-11-19 09:40 | HHI.IDPN ---
Subjective Subjective Remarks ID COVERAGE is a 65 y/o CM who looks older than stated age. His PMHx is significant for COPD, pulmonary embolism, non-small cell lung cancer diagnosis adenocarcinoma along with the mediastinal mass status post chemotherapy as well as radiation therapy who follows with Dr. Rj Monteiro. Patient was recently admitted on July 08, 2016 for chest pain diagnosed with ST elevation LA status post PCI and DELMY by Dr. Crouch cardiology. Patient also was admitted between July 08 to August 31, 2016 and underwent evaluation with diagnosis of non-small cell adenoca lung cancer. At that time was noted to have a lung mass which was invading bilateral mainstem bronchi this was diagnosed to be adenocarcinoma non-small cell lung cancer. He had complete atelectasis of the right lung which required bronchoscopy 2. Patient also underwent chemoradiation therapy and the obstruction was resolved reportedly. Notes reviewed Temps ok Feels better today, slept well last night One BC 11/13 with GPC, no ID yet Has R thoracentesis, L tap and placement of second CT One of CT not draining a lot Has been on Rx for MSSA Bacteremia and Proteus/MSSA UTI His pleural fluid C/S L is negative Has central line place 11/12 No diarrhea Monitor shows NSR Patient declined hospice, and still wants aggressive care Antibiotics Cefepime Flagyl Micafungin Vancomycin Lines Line sites with no e/o infection Past Medical History reviewed Allergies: Coded Allergies: No Known Allergies (Unverified , 07/08/16) Objective . Vital Signs Date Time Temp Pulse Resp B/P Pulse Ox O2 Delivery O2 Flow Rate FiO2 11/19/16 07:39 100 Nasal Cannula 2.00 11/19/16 06:00 81 11/19/16 04:00 98 Nasal Cannula 3.00 11/19/16 04:00 76 11/19/16 04:00 97.1 76 13 136/73 98 11/19/16 02:00 63 11/19/16 00:00 99 Nasal Cannula 3.00 11/19/16 00:00 77 11/19/16 00:00 97.3 77 18 106/66 99 11/18/16 22:00 82 11/18/16 20:00 93 Nasal Cannula 3.00 11/18/16 20:00 97.0 100 21 105/65 100 11/18/16 20:00 100 11/18/16 19:42 94 Nasal Cannula 2.00 11/18/16 18:00 93 11/18/16 16:00 93 Nasal Cannula 3.00 11/18/16 16:00 93 11/18/16 16:00 98.2 93 15 93/65 93 11/18/16 14:00 104 11/18/16 12:00 98.0 90 23 99/63 94 11/18/16 12:00 90 11/18/16 12:00 94 Nasal Cannula 3.00 11/18/16 10:00 88 11/18/16 11/18/16 11/19/16 15:00 23:00 07:00 Intake Total 747 ml 698 ml 1063 ml Output Total 1180 ml 825 ml 1175 ml Balance -433 ml -127 ml -112 ml Intake Oral 240 ml 50 ml 50 ml IV Total 507 ml 648 ml 1013 ml Output Urine Total 750 ml 700 ml 1150 ml Chest Tube Drainage Total 430 ml 125 ml 25 ml # Bowel Movements 0 . Laboratory Tests Test 11/18/16 11/19/16 11/19/16 05:45 04:56 08:00 White Blood Count 48.8 TH/MM3 45.9 TH/MM3 45.5 TH/MM3 Red Blood Count 3.69 MIL/MM3 3.40 MIL/MM3 3.44 MIL/MM3 Hemoglobin 10.3 GM/DL 9.7 GM/DL 9.7 GM/DL Hematocrit 32.2 % 29.8 % 30.1 % Mean Corpuscular Volume 87.4 FL 87.6 FL 87.7 FL Mean Corpuscular Hemoglobin 27.8 PG 28.5 PG 28.3 PG Mean Corpuscular Hemoglobin 31.8 % 32.5 % 32.2 % Concent Red Cell Distribution Width 19.0 % 18.8 % 18.8 % Platelet Count 323 TH/MM3 284 TH/MM3 289 TH/MM3 Mean Platelet Volume 7.0 FL 6.8 FL 6.9 FL Neutrophils (%) (Auto) 97.1 % 96.6 % Lymphocytes (%) (Auto) 0.9 % 0.9 % Monocytes (%) (Auto) 1.9 % 2.4 % Eosinophils (%) (Auto) 0.0 % 0.0 % Basophils (%) (Auto) 0.1 % 0.1 % Neutrophils # (Auto) 47.4 TH/MM3 44.3 TH/MM3 Lymphocytes # (Auto) 0.4 TH/MM3 0.4 TH/MM3 Monocytes # (Auto) 0.9 TH/MM3 1.1 TH/MM3 Eosinophils # (Auto) 0.0 TH/MM3 0.0 TH/MM3 Basophils # (Auto) 0.0 TH/MM3 0.0 TH/MM3 CBC Comment AUTO DIFF AUTO DIFF Differential Total Cells 100 Counted Neutrophils % (Manual) 88 % Band Neutrophils % 7 % Monocytes % 1 % Neutrophils # (Manual) 48.3 TH/MM3 Metamyelocytes 1 % Myelocytes 3 % Differential Comment FINAL DIFF MANUAL Platelet Estimate NORMAL Platelet Morphology Comment NORMAL Laboratory Tests Test 11/17/16 11/17/16 11/18/16 11/18/16 15:45 22:30 05:45 22:10 Potassium Level 2.6 MEQ/L 4.2 MEQ/L 2.7 MEQ/L 2.8 MEQ/L Sodium Level 139 MEQ/L Chloride Level 104 MEQ/L Carbon Dioxide Level 24.5 MEQ/L Anion Gap 11 MEQ/L Blood Urea Nitrogen 13 MG/DL Creatinine 0.51 MG/DL Estimat Glomerular Filtration 162 ML/MIN Rate Random Glucose 145 MG/DL Calcium Level 7.4 MG/DL Protein Corrected Calcium 8.8 MG/DL Magnesium Level 1.1 MG/DL Total Bilirubin 0.2 MG/DL Aspartate Amino Transf 6 U/L (AST/SGOT) Alanine Aminotransferase LESS THAN 6 U/L (ALT/SGPT) Alkaline Phosphatase 105 U/L Total Protein 4.7 GM/DL Albumin 1.7 GM/DL Test 11/19/16 04:56 Sodium Level 140 MEQ/L Potassium Level 3.9 MEQ/L Chloride Level 105 MEQ/L Carbon Dioxide Level 26.0 MEQ/L Anion Gap 9 MEQ/L Blood Urea Nitrogen 14 MG/DL Creatinine 0.43 MG/DL Estimat Glomerular Filtration 197 ML/MIN Rate Random Glucose 111 MG/DL Calcium Level 7.3 MG/DL Protein Corrected Calcium 8.8 MG/DL Magnesium Level 1.0 MG/DL Total Bilirubin 0.3 MG/DL Aspartate Amino Transf 8 U/L (AST/SGOT) Alanine Aminotransferase LESS THAN 6 U/L (ALT/SGPT) Alkaline Phosphatase 81 U/L Total Protein 4.5 GM/DL Albumin 2.0 GM/DL Microbiology Date/Time Procedure Status Source Growth 11/18/16 10:40 Gram Stain - Final Resulted Fluid Pleural Fluid 11/18/16 10:40 Body Fluid Culture Resulted Fluid Pleural Fluid Pending 11/18/16 10:40 Acid Fast Stain Received Fluid Pleural Fluid Pending 11/18/16 10:40 Mycobacterial Culture Received Fluid Pleural Fluid Pending 11/18/16 10:40 Fungal Smear Received Fluid Pleural Fluid Pending 11/18/16 10:40 Fungal Culture Received Fluid Pleural Fluid Pending 11/19/16 08:00 Gram Stain Received Fluid Pleural Fluid Pending 11/19/16 08:00 Body Fluid Culture Received Fluid Pleural Fluid Pending 11/19/16 08:00 Acid Fast Stain Received Fluid Pleural Fluid Pending 11/19/16 08:00 Mycobacterial Culture Received Fluid Pleural Fluid Pending 11/19/16 08:00 Fungal Smear Received Fluid Pleural Fluid Pending 11/19/16 08:00 Fungal Culture Received Fluid Pleural Fluid Pending Imaging Chest X-Ray 11/18/16 0600 Signed Impressions: Service Date/Time: Friday, November 18, 2016 03:34 - CONCLUSION: Bilateral effusions and consolidation are again seen right greater than left. Left subclavian line and left-sided chest tube are present. I do not see a pneumothorax. Heart size normal. Jan Arias MD Chest CT 11/12/16 0000 Signed Impressions: Service Date/Time: Saturday, November 12, 2016 11:23 - CONCLUSION: 1. Bilateral pleural effusions left greater than right. Bilateral dependent parenchymal lung opacity indicating atelectasis. 2. Decrease in size of right hilar and mediastinal mass/enlarged lymph nodes. Prashant Valdez MD Chest X-Ray 11/12/16 0908 Signed Impressions: Service Date/Time: Saturday, November 12, 2016 09:30 - CONCLUSION: Left greater than right pleural effusions. Bilateral patchy parenchymal opacity in the right lung apex and left perihilar region. Prashant Valdez MD Chest CT 11/12/16 0000 Signed Impressions: Service Date/Time: Saturday, November 12, 2016 11:23 - CONCLUSION: 1. Bilateral pleural effusions left greater than right. Bilateral dependent parenchymal lung opacity indicating atelectasis. 2. Decrease in size of right hilar and mediastinal mass/enlarged lymph nodes. Prashant Valdez MD Physical Exam GENERAL: Chronically ill appearing, NAD. Awake and alert SKIN: Dry skin, warm. No generalized rash. No emboli HEENT: Pale conjunctiva, no petechia or hemorrhage. No scleral icterus. No injection or drainage. ENT: Nose without bleeding, or purulent drainage. Dry oral mucosa. Throat without erythema, or exudate. NECK: Trachea midline. Supple, nontender, no meningeal signs. CARDIOVASCULAR: Heart sounds audible. No murmur appreciated. RESPIRATORY: Breath sounds decreased at both bases. 2 CT on L side. GASTROINTESTINAL: Abdomen soft, non-tender, nondistended. BS (+) MUSCULOSKELETAL: Mild pedal edema. No joint effusions. NEUROLOGICAL: Alert and oriented. Psych Calm and cooperative IV line sites with no evidence of infection. : Noble in place, with some sediment Assessment & Plan Remarks Septic shock present on admission. MSSA bacteremia MSSA in urine : ? translocation. Proteus UTI, catheter related Prior h.o cdiff. - no diarrhea currently Bilateral pleural effusions - has had jonnie tap, has 2 CT on L Acute anemia: Blood loss query GI versus other site. Acute respiratory failure. Mild abnormal LFTs: ? sepsis related Acute metabolic encephalopathy: Likely infection related. Immune compromised host. Non-small cell adenocarcinoma of the lung with obstruction and mediastinal mass. Worsening leukocytosis - ?new infection Recs: Follow new C/S Continue IV Vancomycin Continue Cefepime IV Continue Micafungin IV Continue Flagyl PO Follow CBC Monitor progress Will follow Rhianna Hardin MD Nov 19, 2016 09:40
[2016-11-19 10:12] LABS: PLEURAL FLUID LYMPHS 1 %
--- NOTE | 2016-11-19 10:13 | PD.CARD.PN ---
Subjective Subjective Remarks Denies dyspnea, CP, dizziness, palpitations, PND. Slept fairly well. Appetite good. Objective Medications Item Value Date Time Heparin Sodium/ 250 ml @ 0 mls/hr 11/19/16 0730 Dextrose TITRATE/IV 11/19/16 0858 Metoprolol 12.5 mg 11/18/16 1030 Tartrate Q12HR/PO 11/19/16 0851 (Lopressor) Amiodarone HCl 400 mg 11/18/16 1030 (Cordarone) DAILY/PO 11/19/16 0851 Furosemide 40 mg 11/17/16 2100 (Lasix Inj) Q12H/IV PUSH 11/19/16 0849 Enalaprilat 2.5 mg 11/17/16 0900 (Vasotec Inj) DAILY/IV PUSH 11/19/16 0847 Vital Signs / I&O Vital Signs Date Time Temp Pulse Resp B/P Pulse Ox O2 Delivery O2 Flow Rate FiO2 11/19/16 07:39 100 Nasal Cannula 2.00 11/19/16 06:00 81 11/19/16 04:00 98 Nasal Cannula 3.00 11/19/16 04:00 76 11/19/16 04:00 97.1 76 13 136/73 98 11/19/16 02:00 63 11/19/16 00:00 99 Nasal Cannula 3.00 11/19/16 00:00 77 11/19/16 00:00 97.3 77 18 106/66 99 11/18/16 22:00 82 11/18/16 20:00 93 Nasal Cannula 3.00 11/18/16 20:00 97.0 100 21 105/65 100 11/18/16 20:00 100 11/18/16 19:42 94 Nasal Cannula 2.00 11/18/16 18:00 93 11/18/16 16:00 93 Nasal Cannula 3.00 11/18/16 16:00 93 11/18/16 16:00 98.2 93 15 93/65 93 11/18/16 14:00 104 11/18/16 12:00 98.0 90 23 99/63 94 11/18/16 12:00 90 11/18/16 12:00 94 Nasal Cannula 3.00 I/O 11/18/16 11/18/16 11/18/16 11/19/16 11/19/1611/19/17 07:00 15:00 23:00 07:00 15:00 23:00 Intake Total 202 ml 747 ml 698 ml 1063 ml Output Total 1450 ml 1180 ml 825 ml 1175 ml Balance -1248 ml -433 ml -127 ml -112 ml Intake Oral 240 ml 50 ml 50 ml IV Total 202 ml 507 ml 648 ml 1013 ml Output Urine Total 1400 ml 750 ml 700 ml 1150 ml Chest Tube Drainage Total 50 ml 430 ml 125 ml 25 ml # Bowel Movements 0 Physical Exam GENERAL: Well developed, well nourished. No acute distress. HEENT: Jugular venous pressure is normal. CHEST: Diminished breath sounds diffusely. CARDIAC: Regular rate and rhythm without S3, S4, or murmur. ABDOMEN: Soft, nontender, no hepatosplenomegaly. Bowel sounds present. EXTREMITIES: No clubbing, cyanosis, or edema. Laboratory Laboratory Tests Test 11/18/16 11/18/16 11/19/16 11/19/16 10:40 22:10 04:56 08:00 Pleural Fluid pH 8.0 Pleural Fluid WBC 51 /MM3 Pleural Fluid RBC 0 /MM3 Pleural Fluid Neutrophils 56 % Pleural Fluid Lymphocytes 33 % Pleural Fluid Monocytes 11 % Pleural Fluid Comment Pleural Fluid Total Protein 1.4 GM/DL Pleural Fluid LDH 129 U/L Pleural Fluid Glucose 142 MG/DL Pleural Fluid Amylase 14 U/L Potassium Level 2.8 MEQ/L 3.9 MEQ/L White Blood Count 45.9 TH/MM3 45.5 TH/MM3 Red Blood Count 3.40 MIL/MM3 3.44 MIL/MM3 Hemoglobin 9.7 GM/DL 9.7 GM/DL Hematocrit 29.8 % 30.1 % Mean Corpuscular Volume 87.6 FL 87.7 FL Mean Corpuscular Hemoglobin 28.5 PG 28.3 PG Mean Corpuscular Hemoglobin 32.5 % 32.2 % Concent Red Cell Distribution Width 18.8 % 18.8 % Platelet Count 284 TH/MM3 289 TH/MM3 Mean Platelet Volume 6.8 FL 6.9 FL Neutrophils (%) (Auto) 96.6 % Lymphocytes (%) (Auto) 0.9 % Monocytes (%) (Auto) 2.4 % Eosinophils (%) (Auto) 0.0 % Basophils (%) (Auto) 0.1 % Neutrophils # (Auto) 44.3 TH/MM3 Lymphocytes # (Auto) 0.4 TH/MM3 Monocytes # (Auto) 1.1 TH/MM3 Eosinophils # (Auto) 0.0 TH/MM3 Basophils # (Auto) 0.0 TH/MM3 CBC Comment AUTO DIFF Sodium Level 140 MEQ/L Chloride Level 105 MEQ/L Carbon Dioxide Level 26.0 MEQ/L Anion Gap 9 MEQ/L Blood Urea Nitrogen 14 MG/DL Creatinine 0.43 MG/DL Estimat Glomerular Filtration 197 ML/MIN Rate Random Glucose 111 MG/DL Calcium Level 7.3 MG/DL Protein Corrected Calcium 8.8 MG/DL Magnesium Level 1.0 MG/DL Total Bilirubin 0.3 MG/DL Aspartate Amino Transf 8 U/L (AST/SGOT) Alanine Aminotransferase LESS THAN 6 U/L (ALT/SGPT) Alkaline Phosphatase 81 U/L Total Protein 4.5 GM/DL Albumin 2.0 GM/DL Prothrombin Time 13.4 SEC Prothromb Time International 1.2 RATIO Ratio Activated Partial 35.3 SEC Thromboplast Time Assessment and Plan Problem List: (1) Paroxysmal atrial fibrillation Assessment and Plan: Remains in NSR. Tolerating medications. Continue oral Amiodarone, metoprolol. With EF now down to about 30% thromboembolic risk at least moderately elevated. Consider starting oral anticoagulation therapy at some point. (2) Dilated cardiomyopathy Assessment and Plan: Echo this admission reviewed. Suspect EF closer to 30% rather than 35-40%. CXR suggestive of CHF. Patient asymptomatic, stable s/p thoracentesis. REC diuresis, beta elan, NICHOLAS-I. (3) CAD (coronary artery disease) Assessment and Plan: History of STEMI, stent diagonal 06/2016. Stable. No recurrent angina. Resume Plavix, baby aspirin when possible. Code Status No Code Discussed Condition With patient Problem Qualifiers (1) CAD (coronary artery disease): Qualified Code: I25.10 - Coronary artery disease involving [place]well coronary artery of cantwell heart without angina pectoris Rene Kaiser MD Nov 19, 2016 10:13
[2016-11-19 10:25] LABS: BANDS 15 % (0-6); MYELOCYTES 2 % (0-0); NEUTROPHIL # MANUAL DIFF 43.1 TH/MM3 (1.8-7.7); POLYS (SEG NEUTROPHILS) 77 % (16-70); WBC DIFF SAMPLE 100
[2016-11-19 10:26] LABS: BURR CELLS 1+ (NORMAL); OVALOCYTES 1+ (NORMAL); PLATELET ESTIMATE SMEAR NORMAL (NORMAL); PLATELET MORPHOLOGY NORMAL (NORMAL); SCAN/DIFF FINAL DIFF MANUAL; TOXIC GRANULATION 1+ (NORMAL)
[2016-11-19 10:34] LABS: TOTAL PROTEIN,PLEURAL FLUID 1.7 GM/DL
--- NOTE | 2016-11-19 13:47 | HHI.CCPN ---
Subjective Remarks/Hospital Course This is a 64-year-old male with history of COPD, hypertension, coronary artery disease, STEMI on 07/08/16 s/p PCI and DELMY (Dr. Crouch), history of C. difficile colitis, non-small cell lung cancer receiving chemoradiation per Dr. Monteiro, history of pulmonary embolism on Lovenox who was admitted to hospital recently from 07/08-08/31/16 with above diagnoses. During that admission he was noted to have a mediastinal and lung mass which was invading bilateral mainstem bronchi- subsequently diagnosed as a non-small cell lung cancer(adenocarcinoma). He had complete atelectasis of the right lung last admission which required bronchoscopy 2. With chemoradiation obstruction improved with resolution of atelectasis. Today patient was brought from the care home for fever, hypotension, confusion. Apparently patient was to be started on antibiotics for a UTI however prior to starting the antibiotics, he was found to be profoundly hypotensive, confused and was sent to ER. The patient also was noted to have diarrhea. His initial systolic blood pressure was in the 70s, rectal temperature of 100.4 and also tachycardic with a heart rate in 100's. Source of infection seems to be UTI, though HCAP cannot be ruled out. X-ray and CT of the chest shows bilateral pleural effusions left larger than right associated with infiltrate/atelectasis. He has multiple skin ulcers including his sacral area and his bilateral ankles. Patient received 3 L normal saline bolus with improvement in blood pressure. Levophed ordered. I have started patient on stress dose steroids as he was receiving prednisone at the care home . Patient received Zosyn in the ED. I will place patient on cefepime, Flagyl (hx of C Diff) and IV vancomycin. Infectious disease consulted for septic shock in an immunocompromised patient. 11/13 Patient is on 35% VM, afebrile. Off Levophed 11/14 Patient was started on Cardizem drip 15mg/hr overnight in addition was given Lopressor 2.5mg IV x1 for tachycardia. Afebrile. On Heparin drip. s/p transfusion 1u PRBC for Hgb 6.9 now 8.1. 11/15 Patient is on Neosyn 40 mics, off vasopressin. He was given Amiodarone bolus overnight for Afib with RVR HR remains 120-130's. Afebrile. 11/16: Remains on Cardizem and amiodarone. Off vasopressors. Patient's CXR appears worse. He does not appear in distress. Palliative care consulted and family and patient will decide on hospice after d/w Dr. Monteiro 11/17: Bedside ultrasound shows fairly large left pleural effusion despite chest tube. Possibly loculated. We'll hold off thoracentesis to additional chest tube and the patient makes decisions about comfort measures versus aggressive care. Patient waiting to talk to Dr. Monteiro to decide on hospice 11/18: Patient declined hospice and wants to continue aggressive care at this time. White count has increased to 48.9 with 97% neutrophils, I have requested ID reevaluation. Large right pleural effusion drained today 1.2 L clear fluid. UO 4L in 24 hours 11/19/16: Patient had right thoracentesis yesterday 11/18 with 1.2 L pleural fluid removed. A new left pigtail chest tube was placed also yesterday 11/18 with 580 mL of slightly blood-tinged pleural fluid removal over 24 hours. Patient now on nasal cannula tolerating well. Left 32 [place] chest tube was removed today Objective Vital Signs Date Time Temp Pulse Resp B/P Pulse Ox O2 Delivery O2 Flow Rate FiO2 11/19/16 07:39 100 Nasal Cannula 2.00 11/19/16 06:00 81 11/19/16 04:00 97.1 13 136/73 Intake and Output 11/18/16 11/18/16 11/19/16 08:00 16:00 00:00 Intake Total 202 ml 747 ml 698 ml Output Total 1450 ml 1180 ml 825 ml Balance -1248 ml -433 ml -127 ml Result Diagram: 11/19/16 0800 11/19/16 0456 Imaging Last Impressions Chest X-Ray 11/14/16 0600 Signed Impressions: Service Date/Time: Monday, November 14, 2016 05:00 - CONCLUSION: Diffuse increased density likely representing a combination of edema, bilateral effusions, and some degree of consolidation and/or atelectasis at the mid and lower lungs. Sy Edwards MD Chest CT 11/12/16 0000 Signed Impressions: Service Date/Time: Saturday, November 12, 2016 11:23 - CONCLUSION: 1. Bilateral pleural effusions left greater than right. Bilateral dependent parenchymal lung opacity indicating atelectasis. 2. Decrease in size of right hilar and mediastinal mass/enlarged lymph nodes. Prsahant Valdez MD Objective Remarks GENERAL: Elderly ill cachectic gentleman who appears pale, ill SKIN: Warm and dry. HEAD: Atraumatic. Normocephalic. EYES: No scleral icterus. No injection or drainage. ENT: No nasal bleeding or discharge. Dry mucous membranes NECK: Trachea midline. No JVD. CARDIOVASCULAR: Tachycardic with regular rhythm. No murmur appreciated. On amiodarone infusion. RESPIRATORY: No accessory muscle use, diminished breath sound at bases. s/p thoracentesis 11/18 with 1.2 L removed GASTROINTESTINAL: Abdomen soft, cachectic, non-tender, nondistended. BACK/SKIN: The patient has stage I - II pressure sores on his presacral area and ankles. MUSCULOSKELETAL: Bilateral ankle pressure wounds. NEUROLOGICAL: Opens eyes to command and follows commands. Moves all extremities A/P Assessment and Plan NEURO: Acute metabolic encephalopathy-resolved Previous CVA -Minimize sedation, monitor neuro status closely. Awake and alert RESP: Respiratory insufficiency Bilateral pleural effusion Possible HCAP COPD Adenocarcinoma of the lung -Wean FiO2 to keep saturation more than 90% -DuoNeb every 6 hours scheduled and when necessary -At home on chronic prednisone, on Solucortef 100mg IV Q8-reduce to 50 q 8 -s/p 32F CT placement 11/12 for left pleural effusion-Exudative effusion per LDH criteria. Removed today 11/19/16 -Status post right thoracentesis with 1.2L fluid removed, appears transudative -Status post left pigtail catheter placement for drainage of lower pleural effusion-580 ml output since placement on 11/18/16 -After discussion with Dr. Monteiro patient wants to continue aggressive care CV: Acute on chronic systolic heart failure Ischemic cardiomyopathy Afib with RVR Hypotension Coronary artery disease Status post STEMI 07/08/16 with PCI/DELMY to D1 IV Lasix 40 mg IV q12 on 11/17/16 with excellent urine output Amiodarone 400 mg daily and metoprolol 12.5 mg by mouth twice a day EF 30% according to him Continue Plavix GI: Diarrhea History C. difficile colitis - Diet per speech recommendation - On IV IV Protonix : -Monitor renal function, I/O's, electrolytes replacement per protocol ID: Staph aureus Bacteremia Severe sepsis with worsening leukocytosis UTI Possible HCAP History of C. difficile colitis -Continue with abx per ID- Dr. Fabien Michel ( Rocephin, Cefazolin, Flagyl) PO Vanco 125mg QID. -monitor for signs of infections ( Fever, WBC) repeat CBC, check C-diff PCR -BC 11/13: / . S Aureus -BC 11/12 : Staph Aureus -Urine cx 11/12: Proteus Mirabilis, staph species -Strep pneumonia and Legionella urinary Ag negative -Fluid cx 11/12: NGTD HEME: Non-small cell lung cancer Pulmonary embolism diagnosed on 07/08/16 -Monitor CBC, -Had been started on chemoradiation therapy Dr. Monteiro -[facility] is following- Dr. Monteiro -Heparin on hold for thoracentesis, resumed today ENDO: -Electrolyte replacement protocol, sliding scale insulin for glycemic control PROPH: -Bilateral lower extremity SCDs. IV heparin, IV Protonix LINES: -Utilize peripheral IVs, Left subclavian CVP placed 11/12 Level 2 PT/OT Shelia Dan MD Nov 19, 2016 13:47 Shelia Dan MD Nov 19, 2016 13:47
--- NOTE | 2016-11-19 14:20 | RADRPT ---
EXAM DATE/TIME: 11/19/2016 13:52 [facility] COMPARISON: CHEST SINGLE AP, November 19, 2016, 3:22. INDICATIONS : Respiratory disease Chest tube MEDICAL HISTORY : Hypertension. SURGICAL HISTORY : Appendectomy. Left chest tube, infusaport ENCOUNTER: Subsequent ACUITY: 1 week PAIN SCORE: 6/10 LOCATION: Bilateral chest FINDINGS: Patchy consolidation again seen in the bases, right more so than left and given differences in techni que not significantly changed. No large effusion seen. No pneumothorax. Large caliber chest tube previously seen at the apex has been removed. A small caliber chest tube rem ains at the base. I don't see a pneumothorax. Heart size stable, within normal limits. Left subclavian central venous catheter with tip in the supe rior vena cava again noted. CONCLUSION: 1. No significant change mild basilar consolidation, right more so the left. 2. The left chest tube at the apex has been removed. The chest tube at the left base remains. No pneu mothorax seen. Sy Egan MD on November 19, 2016 at 14:17 Board Certified Radiologist. This report was verified electronically.
[2016-11-19] MEDS ORDERED: MORPHINE SULFATE 4 MG/ML INJ IV ONE (16:00)
[2016-11-19] MEDS ORDERED: ALBUMIN HUMAN 25% 25 GM/100 ML BAGP IV ONE (16:00)
[2016-11-19 16:03] LABS: ALKALINE PHOSPHATASE 97 U/L (45-117); ALT (GPT) LESS THAN 6 U/L (12-78); ANION GAP 9 MEQ/L (5-15); AST (GOT) 9 U/L (15-37); BICARBONATE 26.8 MEQ/L (21.0-32.0); BLOOD UREA NITROGEN 14 MG/DL (7-18); CALCIUM-PROTEIN CORRECTED 8.7 MG/DL (8.5-10.1); CHLORIDE 104 MEQ/L (98-107); GLOMERULAR FILTRATION RATE 178 ML/MIN (>89); SODIUM (NA) 140 MEQ/L (136-145); TOTAL BILIRUBIN ADULT 0.3 MG/DL (0.2-1.0)
[2016-11-19 16:06] LABS: POTASSIUM 2.7 MEQ/L (3.5-5.1)
[2016-11-19] MEDS: MICAFUNGIN INJ 100 MG in SODIUM CHLORIDE 0.9% INJ 100 ML IV SCH (16:26)
[2016-11-19] MEDS: POTASSIUM CHLOR 40 MEQ PREMIX 100 ML IV SCH ×3 (18:12→22:39)
[2016-11-19 18:14] LABS: APTT (PATIENT) GREATER THAN 153.4 SEC (24.3-30.1)
[2016-11-19 20:13] LABS: APTT (PATIENT) GREATER THAN 153.4 SEC (24.3-30.1)
[2016-11-19] MEDS: TEMAZEPAM 7.5 MG CAP PO PRN (22:39)
[2016-11-19 22:52] LABS: APTT (PATIENT) 105.6 SEC (24.3-30.1)
[2016-11-20] VITALS (14 sets, daily range): BP systolic 112–144; BP diastolic 72–80; PULSE 78–97; RESP 13–22; TEMP 97.6–99; O2SAT 92–99
[2016-11-20 01:07] LABS: APTT (PATIENT) GREATER THAN 153.4 SEC (24.3-30.1)
[2016-11-20 02:29] LABS: APTT (PATIENT) 97.6 SEC (24.3-30.1)
[2016-11-20] MEDS: INSULIN NovoLIN REGULAR SUPPLEMENTAL SCALE SQ SCH ×4 (04:15→21:24)
[2016-11-20 04:21] LABS: AUTOMATED NEUTROPHIL # 40.4 TH/MM3 (1.8-7.7); BASOPHIL # 0.4 TH/MM3 (0-0.2); BASOPHIL % 0.9 % (0.0-2.0); HEMATOCRIT 27.7 % (39.0-51.0); LYMPH % 0.8 % (9.0-44.0); LYMPHOCYTE # 0.3 TH/MM3 (1.0-4.8); MEAN CORPUSCULAR HEMOGLOBIN 28.8 PG (27.0-34.0); MEAN CORPUSCULAR HGB CONC 32.7 % (32.0-36.0); MONO % 3.1 % (0.0-8.0); NEUT % 95.2 % (16.0-70.0); PLATELET COUNT 275 TH/MM3 (150-450); RED BLOOD COUNT 3.14 MIL/MM3 (4.50-5.90); RED CELL DISTRIBUTION WIDTH 18.9 % (11.6-17.2); WHITE BLOOD COUNT 42.5 TH/MM3 (4.0-11.0)
[2016-11-20 04:35] LABS: HEMO FLAGS AUTO DIFF
[2016-11-20 04:38] LABS: ALKALINE PHOSPHATASE 80 U/L (45-117); ALT (GPT) LESS THAN 6 U/L (12-78); ANION GAP 9 MEQ/L (5-15); AST (GOT) 6 U/L (15-37); BICARBONATE 27.3 MEQ/L (21.0-32.0); BLOOD UREA NITROGEN 14 MG/DL (7-18); CALCIUM-PROTEIN CORRECTED 8.6 MG/DL (8.5-10.1); CHLORIDE 107 MEQ/L (98-107); GLOMERULAR FILTRATION RATE 178 ML/MIN (>89); MAGNESIUM 1.4 MG/DL (1.5-2.5); POTASSIUM 3.4 MEQ/L (3.5-5.1); SODIUM (NA) 143 MEQ/L (136-145); TOTAL BILIRUBIN ADULT 0.4 MG/DL (0.2-1.0)
[2016-11-20 04:45] LABS: APTT (PATIENT) 122.3 SEC (24.3-30.1)
[2016-11-20] MEDS: POTASSIUM CHLOR 20 MEQ PREMIX 100 ML IV PRN ×2 (04:50→06:26)
[2016-11-20] MEDS ORDERED: PHARMACY ORDERED LAB XX ONE (05:45)
[2016-11-20] MEDS: metroNIDAZOLE 500 MG TAB PO SCH ×3 (05:57→21:13)
[2016-11-20] MEDS: HYDROCORTISONE SOD SUCCINATE 100 MG VIAL IV PUSH SCH ×3 (05:59→21:14)
[2016-11-20] MEDS: CEFEPIME INJ 2,000 MG in SODIUM CHLORIDE 0.9% INJ 100 ML IV SCH ×2 (05:59→16:47)
[2016-11-20] MEDS: VANCOMYCIN INJ 1,500 MG in SODIUM CHLORID 0.9% 500 ML INJ 500 ML IV SCH (06:24)
[2016-11-20 06:33] LABS: APTT (PATIENT) 41.3 SEC (24.3-30.1)
[2016-11-20 07:08] LABS: BANDS 12 % (0-6); METAMYELOCYTES 1 % (0-1); MYELOCYTES 2 % (0-0); NEUTROPHIL # MANUAL DIFF 41.7 TH/MM3 (1.8-7.7); POLYS (SEG NEUTROPHILS) 83 % (16-70); WBC DIFF SAMPLE 100
[2016-11-20 07:09] LABS: ACANTHOCYTES OCC (NORMAL); HELMET CELLS OCC (NORMAL)
[2016-11-20 07:10] LABS: PLATELET ESTIMATE SMEAR NORMAL (NORMAL); PLATELET MORPHOLOGY NORMAL (NORMAL); SCAN/DIFF FINAL DIFF MANUAL
[2016-11-20] MEDS: ENALAPRIL MALEATE 2.5 MG TAB PO SCH (08:48)
[2016-11-20] MEDS: AMIODARONE 200 MG TAB PO SCH (08:48)
[2016-11-20] MEDS: METOPROLOL TARTRATE 25 MG TAB PO SCH ×2 (08:48→19:55)
[2016-11-20] MEDS: POTASSIUM CHLORIDE 10 MEQ CONTROLLED RELEASE TAB PO SCH (08:49)
[2016-11-20] MEDS: SODIUM CHLORIDE 0.9% FLUSH 5 ML FLUSH IV FLUSH SCH ×2 (08:50→19:55)
[2016-11-20] MEDS: PANTOPRAZOLE SODIUM 40 MG VIAL IV SCH (08:50)
[2016-11-20] MEDS: FUROSEMIDE 40 MG/4 ML VIAL IV PUSH SCH ×2 (08:50→19:54)
[2016-11-20] MEDS: TIOTROPIUM BROMIDE 18 MCG INH INH SCH (08:50)
--- NOTE | 2016-11-20 09:14 | PD.CARD.PN ---
Subjective Subjective Remarks Denies pain, dyspnea, palpitations, nausea, dizziness. Slept fairly well. Objective Medications Item Value Date Time Vasopressin 40 100 ml @ 0 mls/hr 11/12/16 1320 units/Dextrose Q0M/IV 11/14/16 1543 Norepinephrine 250 ml @ 0 mls/hr 11/12/16 1330 Bitartrate TITRATE/IV 11/12/16 1848 Enalapril Maleate 2.5 mg 11/20/16 0900 (Vasotec) DAILY/PO 11/20/16 0848 Heparin Sodium/ 250 ml @ 0 mls/hr 11/19/16 0730 Dextrose TITRATE/IV 11/19/16 0858 Amiodarone HCl 400 mg 11/18/16 1030 (Cordarone) DAILY/PO 11/20/16 0848 Metoprolol 12.5 mg 11/18/16 1030 Tartrate Q12HR/PO 11/20/16 0848 (Lopressor) Furosemide 40 mg 11/17/16 2100 (Lasix Inj) Q12H/IV PUSH 11/20/16 0850 Vital Signs / I&O Vital Signs Date Time Temp Pulse Resp B/P Pulse Ox O2 Delivery O2 Flow Rate FiO2 11/20/16 06:00 87 11/20/16 04:00 82 11/20/16 04:00 98.0 96 17 129/76 97 11/20/16 04:00 97 Nasal Cannula 1.50 11/20/16 02:00 81 11/20/16 00:00 99 Nasal Cannula 1.50 11/20/16 00:00 98.0 96 18 123/72 99 11/20/16 00:00 78 11/19/16 22:00 92 11/19/16 20:00 96 11/19/16 20:00 99 Nasal Cannula 3.00 11/19/16 20:00 98.0 96 18 101/65 99 11/19/16 19:55 96 Nasal Cannula 2.00 11/19/16 18:00 87 11/19/16 16:00 98.0 87 17 96/62 99 11/19/16 16:00 99 Nasal Cannula 3.00 11/19/16 16:00 87 11/19/16 14:00 90 11/19/16 12:00 97 Nasal Cannula 3.00 11/19/16 12:00 80 11/19/16 12:00 97.8 80 19 87/50 97 11/19/16 10:00 88 I/O 11/19/16 11/19/16 11/19/16 11/20/16 11/20/16 11/20/16 07:00 15:00 23:00 07:00 15:00 23:00 Intake Total 1063 ml 1170 ml 1061 ml 358 ml Output Total 1175 ml 1430 ml 1800 ml 570 ml Balance -112 ml -260 ml -739 ml -212 ml Intake Oral 50 ml 400 ml 50 ml 50 ml IV Total 1013 ml 770 ml 1011 ml 308 ml Output Urine Total 1150 ml 1350 ml 1800 ml 550 ml Chest Tube Drainage Total 25 ml 80 ml 20 ml # Bowel Movements 0 0 0 0 Physical Exam GENERAL: Well developed, well nourished. No acute distress. HEENT: Jugular venous pressure is normal. CHEST: Diminished breath sounds diffusely. CARDIAC: Regular rate and rhythm without S3, S4, or murmur. ABDOMEN: Soft, nontender, no hepatosplenomegaly. Bowel sounds present. EXTREMITIES: No clubbing, cyanosis, or edema. Laboratory Laboratory Tests Test 11/19/16 11/19/16 11/19/16 11/19/16 14:55 16:30 18:30 22:00 Sodium Level 140 MEQ/L Potassium Level 2.7 MEQ/L Chloride Level 104 MEQ/L Carbon Dioxide Level 26.8 MEQ/L Anion Gap 9 MEQ/L Blood Urea Nitrogen 14 MG/DL Creatinine 0.47 MG/DL Estimat Glomerular Filtration 178 ML/MIN Rate Random Glucose 180 MG/DL Calcium Level 7.3 MG/DL Protein Corrected Calcium 8.7 MG/DL Total Bilirubin 0.3 MG/DL Aspartate Amino Transf 9 U/L (AST/SGOT) Alanine Aminotransferase LESS THAN 6 U/L (ALT/SGPT) Alkaline Phosphatase 97 U/L Total Protein 4.6 GM/DL Albumin 2.0 GM/DL Activated Partial GREATER THAN GREATER THAN 105.6 SEC Thromboplast Time 153.4 SEC 153.4 SEC Test 11/20/16 11/20/16 11/20/16 11/20/16 00:00 02:05 04:00 05:45 Activated Partial GREATER THAN 97.6 SEC 122.3 SEC Thromboplast Time 153.4 SEC White Blood Count 42.5 TH/MM3 Red Blood Count 3.14 MIL/MM3 Hemoglobin 9.1 GM/DL Hematocrit 27.7 % Mean Corpuscular Volume 88.0 FL Mean Corpuscular Hemoglobin 28.8 PG Mean Corpuscular Hemoglobin 32.7 % Concent Red Cell Distribution Width 18.9 % Platelet Count 275 TH/MM3 Mean Platelet Volume 6.7 FL Neutrophils (%) (Auto) 95.2 % Lymphocytes (%) (Auto) 0.8 % Monocytes (%) (Auto) 3.1 % Eosinophils (%) (Auto) 0.0 % Basophils (%) (Auto) 0.9 % Neutrophils # (Auto) 40.4 TH/MM3 Lymphocytes # (Auto) 0.3 TH/MM3 Monocytes # (Auto) 1.3 TH/MM3 Eosinophils # (Auto) 0.0 TH/MM3 Basophils # (Auto) 0.4 TH/MM3 CBC Comment AUTO DIFF Differential Total Cells 100 Counted Neutrophils % (Manual) 83 % Band Neutrophils % 12 % Monocytes % 2 % Neutrophils # (Manual) 41.7 TH/MM3 Metamyelocytes 1 % Myelocytes 2 % Differential Comment FINAL DIFF MANUAL Platelet Estimate NORMAL Platelet Morphology Comment NORMAL Helmet Cells OCC Acanthocytes OCC Sodium Level 143 MEQ/L Potassium Level 3.4 MEQ/L Chloride Level 107 MEQ/L Carbon Dioxide Level 27.3 MEQ/L Anion Gap 9 MEQ/L Blood Urea Nitrogen 14 MG/DL Creatinine 0.47 MG/DL Estimat Glomerular Filtration 178 ML/MIN Rate Random Glucose 133 MG/DL Calcium Level 7.3 MG/DL Protein Corrected Calcium 8.6 MG/DL Magnesium Level 1.4 MG/DL Total Bilirubin 0.4 MG/DL Aspartate Amino Transf 6 U/L (AST/SGOT) Alanine Aminotransferase LESS THAN 6 U/L (ALT/SGPT) Alkaline Phosphatase 80 U/L Total Protein 4.8 GM/DL Albumin 2.2 GM/DL Vancomycin Level Trough 26.1 MCG/ML Test 11/20/16 06:00 Activated Partial 41.3 SEC Thromboplast Time Assessment and Plan Problem List: (1) Paroxysmal atrial fibrillation Assessment and Plan: Remains in NSR. Tolerating medications. Continue oral Amiodarone, metoprolol. With EF now down to about 30% thromboembolic risk at least moderately elevated. Consider starting oral anticoagulation therapy at some point. Rec try to maintain K > 4.0 while on Amiodarone. (2) Dilated cardiomyopathy Assessment and Plan: Echo this admission reviewed. Suspect EF closer to 30% rather than 35-40%. CXR suggestive of CHF. Patient asymptomatic, stable s/p thoracentesis. REC diuresis, beta elan, NICHOLAS-I. (3) CAD (coronary artery disease) Assessment and Plan: History of STEMI, stent diagonal 06/2016. Stable. No recurrent angina. Resume Plavix, baby aspirin when possible. Code Status No Code Discussed Condition With patient and Problem Qualifiers (1) CAD (coronary artery disease): Qualified Code: I25.10 - Coronary artery disease involving [place] coronary artery of [place] heart without angina pectoris Rene Kaiser MD Nov 20, 2016 09:14
--- NOTE | 2016-11-20 12:02 | RADRPT ---
EXAM DATE/TIME: 11/20/2016 10:33 [facility] COMPARISON: CHEST SINGLE AP, November 19, 2016, 13:52. INDICATIONS : Respiratory disease. MEDICAL HISTORY : Carcinoma, lung. Hypertension SURGICAL HISTORY : Appendectomy. Peripheral vascular stent. ENCOUNTER: Subsequent ACUITY: 2 weeks PAIN SCORE: 0/10 LOCATION: chest FINDINGS: A single view of the chest demonstrates improving bibasilar airspace disease. Pigtail catheter left l ower chest. Left subclavian central line stable position. Osseous structures are intact. CONCLUSION: 1. Improving bibasilar airspace disease. 2. Left-sided chest tube without pneumothorax. Albaro Singleton MD on November 20, 2016 at 12:00 Board Certified Radiologist. This report was verified electronically.
--- NOTE | 2016-11-20 12:19 | HHI.IDPN ---
Subjective Subjective Remarks ID COVERAGE is a 65 y/o CM who looks older than stated age. His PMHx is significant for COPD, pulmonary embolism, non-small cell lung cancer diagnosis adenocarcinoma along with the mediastinal mass status post chemotherapy as well as radiation therapy who follows with Dr. Rj Monteiro. Patient was recently admitted on July 08, 2016 for chest pain diagnosed with ST elevation NH status post PCI and DELMY by Dr. Crouch cardiology. Patient also was admitted between July 08 to August 31, 2016 and underwent evaluation with diagnosis of non-small cell adenoca lung cancer. At that time was noted to have a lung mass which was invading bilateral mainstem bronchi this was diagnosed to be adenocarcinoma non-small cell lung cancer. He had complete atelectasis of the right lung which required bronchoscopy 2. Patient also underwent chemoradiation therapy and the obstruction was resolved reportedly. Notes reviewed Temps ok One of CT removed yesterday WBC slightly down 42K Nothing new in C/S One BC 11/13 with MSSA Has R thoracentesis, L tap and placement of second CT Has been on Rx for MSSA Bacteremia and Proteus/MSSA UTI His pleural fluid C/S L is negative Has central line place 11/12 No diarrhea Antibiotics Cefepime Flagyl Micafungin Vancomycin Lines Line sites with no e/o infection Past Medical History reviewed Allergies: Coded Allergies: No Known Allergies (Unverified , 07/08/16) Objective . Vital Signs Date Time Temp Pulse Resp B/P Pulse Ox O2 Delivery O2 Flow Rate FiO2 11/20/16 11:22 99 Nasal Cannula 2.00 11/20/16 08:00 96 Nasal Cannula 1.50 11/20/16 06:00 87 11/20/16 04:00 82 11/20/16 04:00 98.0 96 17 129/76 97 11/20/16 04:00 97 Nasal Cannula 1.50 11/20/16 02:00 81 11/20/16 00:00 99 Nasal Cannula 1.50 11/20/16 00:00 98.0 96 18 123/72 99 11/20/16 00:00 78 11/19/16 22:00 92 11/19/16 20:00 96 11/19/16 20:00 99 Nasal Cannula 3.00 11/19/16 20:00 98.0 96 18 101/65 99 11/19/16 19:55 96 Nasal Cannula 2.00 11/19/16 18:00 87 11/19/16 16:00 98.0 87 17 96/62 99 11/19/16 16:00 99 Nasal Cannula 3.00 11/19/16 16:00 87 11/19/16 14:00 90 11/19/16 11/19/16 11/20/16 15:00 23:00 07:00 Intake Total 1170 ml 1061 ml 358 ml Output Total 1430 ml 1800 ml 570 ml Balance -260 ml -739 ml -212 ml Intake Oral 400 ml 50 ml 50 ml IV Total 770 ml 1011 ml 308 ml Output Urine Total 1350 ml 1800 ml 550 ml Chest Tube Drainage Total 80 ml 20 ml # Bowel Movements 0 0 0 . Laboratory Tests Test 11/19/16 11/19/16 11/20/16 04:56 08:00 04:00 White Blood Count 45.9 TH/MM3 45.5 TH/MM3 42.5 TH/MM3 Red Blood Count 3.40 MIL/MM3 3.44 MIL/MM3 3.14 MIL/MM3 Hemoglobin 9.7 GM/DL 9.7 GM/DL 9.1 GM/DL Hematocrit 29.8 % 30.1 % 27.7 % Mean Corpuscular Volume 87.6 FL 87.7 FL 88.0 FL Mean Corpuscular Hemoglobin 28.5 PG 28.3 PG 28.8 PG Mean Corpuscular Hemoglobin 32.5 % 32.2 % 32.7 % Concent Red Cell Distribution Width 18.8 % 18.8 % 18.9 % Platelet Count 284 TH/MM3 289 TH/MM3 275 TH/MM3 Mean Platelet Volume 6.8 FL 6.9 FL 6.7 FL Neutrophils (%) (Auto) 96.6 % 95.2 % Lymphocytes (%) (Auto) 0.9 % 0.8 % Monocytes (%) (Auto) 2.4 % 3.1 % Eosinophils (%) (Auto) 0.0 % 0.0 % Basophils (%) (Auto) 0.1 % 0.9 % Neutrophils # (Auto) 44.3 TH/MM3 40.4 TH/MM3 Lymphocytes # (Auto) 0.4 TH/MM3 0.3 TH/MM3 Monocytes # (Auto) 1.1 TH/MM3 1.3 TH/MM3 Eosinophils # (Auto) 0.0 TH/MM3 0.0 TH/MM3 Basophils # (Auto) 0.0 TH/MM3 0.4 TH/MM3 CBC Comment AUTO DIFF AUTO DIFF Differential Total Cells 100 100 Counted Neutrophils % (Manual) 77 % 83 % Band Neutrophils % 15 % 12 % Lymphocytes % 3 % Monocytes % 3 % 2 % Neutrophils # (Manual) 43.1 TH/MM3 41.7 TH/MM3 Myelocytes 2 % 2 % Differential Comment FINAL DIFF FINAL DIFF MANUAL MANUAL Toxic Granulation 1+ Platelet Estimate NORMAL NORMAL Platelet Morphology Comment NORMAL NORMAL Ovalocytes 1+ Yulissa Cells 1+ Metamyelocytes 1 % Helmet Cells OCC Acanthocytes OCC Laboratory Tests Test 11/18/16 11/19/16 11/19/16 11/20/16 22:10 04:56 14:55 04:00 Potassium Level 2.8 MEQ/L 3.9 MEQ/L 2.7 MEQ/L 3.4 MEQ/L Sodium Level 140 MEQ/L 140 MEQ/L 143 MEQ/L Chloride Level 105 MEQ/L 104 MEQ/L 107 MEQ/L Carbon Dioxide Level 26.0 MEQ/L 26.8 MEQ/L 27.3 MEQ/L Anion Gap 9 MEQ/L 9 MEQ/L 9 MEQ/L Blood Urea Nitrogen 14 MG/DL 14 MG/DL 14 MG/DL Creatinine 0.43 MG/DL 0.47 MG/DL 0.47 MG/DL Estimat Glomerular Filtration 197 ML/MIN 178 ML/MIN 178 ML/MIN Rate Random Glucose 111 MG/DL 180 MG/DL 133 MG/DL Calcium Level 7.3 MG/DL 7.3 MG/DL 7.3 MG/DL Protein Corrected Calcium 8.8 MG/DL 8.7 MG/DL 8.6 MG/DL Magnesium Level 1.0 MG/DL 1.4 MG/DL Total Bilirubin 0.3 MG/DL 0.3 MG/DL 0.4 MG/DL Aspartate Amino Transf 8 U/L 9 U/L 6 U/L (AST/SGOT) Alanine Aminotransferase LESS THAN 6 U/L LESS THAN 6 U/L LESS THAN 6 U/L (ALT/SGPT) Alkaline Phosphatase 81 U/L 97 U/L 80 U/L Total Protein 4.5 GM/DL 4.6 GM/DL 4.8 GM/DL Albumin 2.0 GM/DL 2.0 GM/DL 2.2 GM/DL Microbiology Date/Time Procedure Status Source Growth 11/18/16 10:40 Gram Stain - Final Resulted Fluid Pleural Fluid 11/18/16 10:40 Body Fluid Culture - Preliminary Resulted Fluid Pleural Fluid NO GROWTH IN 48 HOURS. 11/18/16 10:40 Acid Fast Stain Received Fluid Pleural Fluid Pending 11/18/16 10:40 Mycobacterial Culture Received Fluid Pleural Fluid Pending 11/18/16 10:40 Fungal Smear Received Fluid Pleural Fluid Pending 11/18/16 10:40 Fungal Culture Received Fluid Pleural Fluid Pending 11/19/16 08:00 Gram Stain - Final Resulted Fluid Pleural Fluid 11/19/16 08:00 Body Fluid Culture - Preliminary Resulted Fluid Pleural Fluid NO GROWTH IN 24 HOURS. 11/19/16 08:00 Acid Fast Stain Received Fluid Pleural Fluid Pending 11/19/16 08:00 Mycobacterial Culture Received Fluid Pleural Fluid Pending 11/19/16 08:00 Fungal Smear - Final Resulted Fluid Pleural Fluid NO FUNGAL ELEMENTS SEEN. 11/19/16 08:00 Fungal Culture Resulted Fluid Pleural Fluid Pending Imaging Chest X-Ray 11/18/16 0600 Signed Impressions: Service Date/Time: Friday, November 18, 2016 03:34 - CONCLUSION: Bilateral effusions and consolidation are again seen right greater than left. Left subclavian line and left-sided chest tube are present. I do not see a pneumothorax. Heart size normal. Jan Arias MD Chest CT 11/12/16 0000 Signed Impressions: Service Date/Time: Saturday, November 12, 2016 11:23 - CONCLUSION: 1. Bilateral pleural effusions left greater than right. Bilateral dependent parenchymal lung opacity indicating atelectasis. 2. Decrease in size of right hilar and mediastinal mass/enlarged lymph nodes. Prashant Valdez MD Chest X-Ray 11/12/16 0908 Signed Impressions: Service Date/Time: Saturday, November 12, 2016 09:30 - CONCLUSION: Left greater than right pleural effusions. Bilateral patchy parenchymal opacity in the right lung apex and left perihilar region. Prashant Valdez MD Chest CT 11/12/16 0000 Signed Impressions: Service Date/Time: Saturday, November 12, 2016 11:23 - CONCLUSION: 1. Bilateral pleural effusions left greater than right. Bilateral dependent parenchymal lung opacity indicating atelectasis. 2. Decrease in size of right hilar and mediastinal mass/enlarged lymph nodes. Prashant Valdez MD Physical Exam GENERAL: NAD. Awake and alert SKIN: Dry skin, warm. No generalized rash. No emboli HEENT: Pale conjunctiva, no petechia or hemorrhage. No scleral icterus. Dry oral mucosa. NECK: Trachea midline. Supple, nontender, no meningeal signs. CARDIOVASCULAR: Heart sounds audible. No murmur appreciated. RESPIRATORY: Breath sounds decreased at both bases. One CT on L side. GASTROINTESTINAL: Abdomen soft, non-tender, nondistended. BS (+) MUSCULOSKELETAL: Mild pedal edema. No joint effusions. NEUROLOGICAL: Alert and oriented. Psych Calm and cooperative IV line sites with no evidence of infection. : Noble in place, with some sediment Assessment & Plan Remarks Septic shock present on admission. MSSA bacteremia MSSA in urine : ? translocation. Proteus UTI, catheter related Prior h.o cdiff. - no diarrhea currently Bilateral pleural effusions - has had jonnie tap, has 2 CT on L Acute anemia: Blood loss query GI versus other site. Acute respiratory failure. Mild abnormal LFTs: ? sepsis related Acute metabolic encephalopathy: Likely infection related. Immune compromised host. Non-small cell adenocarcinoma of the lung with obstruction and mediastinal mass. Worsening leukocytosis - ?new infection Recs: Follow new C/S - deescalate Abx once C/S finalized Continue IV Vancomycin Continue Cefepime IV Continue Micafungin IV Continue Flagyl PO Follow CBC Monitor progress Will follow Rhianna Hardin MD Nov 20, 2016 12:19
--- NOTE | 2016-11-20 12:22 | HHI.CCPN ---
Subjective Remarks/Hospital Course This is a 64-year-old male with history of COPD, hypertension, coronary artery disease, STEMI on 07/08/16 s/p PCI and DELMY (Dr. Crouch), history of C. difficile colitis, non-small cell lung cancer receiving chemoradiation per Dr. Monteiro, history of pulmonary embolism on Lovenox who was admitted to hospital recently from 07/08-08/31/16 with above diagnoses. During that admission he was noted to have a mediastinal and lung mass which was invading bilateral mainstem bronchi- subsequently diagnosed as a non-small cell lung cancer(adenocarcinoma). He had complete atelectasis of the right lung last admission which required bronchoscopy 2. With chemoradiation obstruction improved with resolution of atelectasis. Today patient was brought from the [facility] for fever, hypotension, confusion. Apparently patient was to be started on antibiotics for a UTI however prior to starting the antibiotics, he was found to be profoundly hypotensive, confused and was sent to ER. The patient also was noted to have diarrhea. His initial systolic blood pressure was in the 70s, rectal temperature of 100.4 and also tachycardic with a heart rate in 100's. Source of infection seems to be UTI, though HCAP cannot be ruled out. X-ray and CT of the chest shows bilateral pleural effusions left larger than right associated with infiltrate/atelectasis. He has multiple skin ulcers including his sacral area and his bilateral ankles. Patient received 3 L normal saline bolus with improvement in blood pressure. Levophed ordered. I have started patient on stress dose steroids as he was receiving prednisone at the [facility] . Patient received Zosyn in the ED. I will place patient on cefepime, Flagyl (hx of C Diff) and IV vancomycin. Infectious disease consulted for septic shock in an immunocompromised patient. 11/13 Patient is on 35% VM, afebrile. Off Levophed 11/14 Patient was started on Cardizem drip 15mg/hr overnight in addition was given Lopressor 2.5mg IV x1 for tachycardia. Afebrile. On Heparin drip. s/p transfusion 1u PRBC for Hgb 6.9 now 8.1. 11/15 Patient is on Neosyn 40 mics, off vasopressin. He was given Amiodarone bolus overnight for Afib with RVR HR remains 120-130's. Afebrile. 11/16: Remains on Cardizem and amiodarone. Off vasopressors. Patient's CXR appears worse. He does not appear in distress. Palliative care consulted and family and patient will decide on hospice after d/w Dr. Monteiro 11/17: Bedside ultrasound shows fairly large left pleural effusion despite chest tube. Possibly loculated. We'll hold off thoracentesis to additional chest tube and the patient makes decisions about comfort measures versus aggressive care. Patient waiting to talk to Dr. Monteiro to decide on hospice 11/18: Patient declined hospice and wants to continue aggressive care at this time. White count has increased to 48.9 with 97% neutrophils, I have requested ID reevaluation. Large right pleural effusion drained today 1.2 L clear fluid. UO 4L in 24 hours 11/19/16: Patient had right thoracentesis yesterday 11/18 with 1.2 L pleural fluid removed. A new left pigtail chest tube was placed also yesterday 11/18 with 580 mL of slightly blood-tinged pleural fluid removal over 24 hours. Patient now on nasal cannula tolerating well. Left 32 [place] chest tube was removed today 11/20: Breathing more comfortably now. Large bore chest tube removed yesterday. No pneumothorax. WBC count slightly improved from 45.5 to 42.5 Objective Vital Signs Date Time Temp Pulse Resp B/P Pulse Ox O2 Delivery O2 Flow Rate FiO2 11/20/16 11:22 99 Nasal Cannula 2.00 11/20/16 06:00 87 11/20/16 04:00 98.0 17 129/76 Intake and Output 11/19/16 11/19/16 11/20/16 08:00 16:00 00:00 Intake Total 1063 ml 1170 ml 1061 ml Output Total 1175 ml 1430 ml 1800 ml Balance -112 ml -260 ml -739 ml Result Diagram: 11/20/16 0400 11/20/16 0400 Imaging Last Impressions Chest X-Ray 11/14/16 0600 Signed Impressions: Service Date/Time: Monday, November 14, 2016 05:00 - CONCLUSION: Diffuse increased density likely representing a combination of edema, bilateral effusions, and some degree of consolidation and/or atelectasis at the mid and lower lungs. Sy Edwards MD Chest CT 11/12/16 0000 Signed Impressions: Service Date/Time: Saturday, November 12, 2016 11:23 - CONCLUSION: 1. Bilateral pleural effusions left greater than right. Bilateral dependent parenchymal lung opacity indicating atelectasis. 2. Decrease in size of right hilar and mediastinal mass/enlarged lymph nodes. Prashant Valdez MD Objective Remarks GENERAL: Elderly ill cachectic gentleman who appears pale, ill SKIN: Warm and dry. HEAD: Atraumatic. Normocephalic. EYES: No scleral icterus. No injection or drainage. ENT: No nasal bleeding or discharge. Dry mucous membranes NECK: Trachea midline. No JVD. CARDIOVASCULAR: Heart rate-controlled. No murmur appreciated. RESPIRATORY: No accessory muscle use, diminished breath sound at bases. s/p thoracentesis 11/18 with 1.2 L removed GASTROINTESTINAL: Abdomen soft, cachectic, non-tender, nondistended. BACK/SKIN: The patient has stage I - II pressure sores on his presacral area and ankles. MUSCULOSKELETAL: Bilateral ankle pressure wounds. NEUROLOGICAL: Opens eyes to command and follows commands. Moves all extremities Urinary Catheter: Yes Assessment to: Continue A/P Assessment and Plan NEURO: Acute metabolic encephalopathy-resolved Previous CVA -Minimize sedation, monitor neuro status closely. Awake and alert RESP: Respiratory insufficiency Bilateral pleural effusion Possible HCAP COPD Adenocarcinoma of the lung History of pulmonary embolus -Wean FiO2 to keep saturation more than 90% -DuoNeb every 6 hours scheduled and when necessary -At home on chronic prednisone, on Solucortef 50 q 8 -s/p 32F CT placement 11/12 for left pleural effusion-Exudative effusion per LDH criteria. Removed 11/19/16 -Status post right thoracentesis with 1.2L fluid removed, appears transudative -Status post left pigtail catheter placement for drainage of lower pleural effusion-on 11/18/16. 100 ml output in 24 hours -After discussion with Dr. Monteiro patient wants to continue aggressive care CV: Acute on chronic systolic heart failure Ischemic cardiomyopathy Afib with RVR Hypotension Coronary artery disease Status post STEMI 07/08/16 with PCI/DELMY to D1 IV Lasix 40 mg IV q12 on 11/17/16 with excellent urine output Amiodarone 400 mg daily and metoprolol 12.5 mg by mouth twice a day EF 30% according to him Continue Plavix GI: Diarrhea History C. difficile colitis - Diet per speech recommendation - On IV IV Protonix : -Monitor renal function, I/O's, electrolytes replacement per protocol ID: Staph aureus Bacteremia Severe sepsis with worsening leukocytosis UTI Possible HCAP History of C. difficile colitis -Continue with abx per ID- Dr. Fabien Michel. Continue IV Vancomycin, Cefepime IV, Micafungin IV and Flagyl PO -monitor for signs of infections ( Fever, WBC) repeat CBC, check C-diff PCR -BC 11/13: 09/25 . S Aureus -BC 11/12 : Staph Aureus -Urine cx 11/12: Proteus Mirabilis, staph species -Strep pneumonia and Legionella urinary Ag negative -Fluid cx 11/12: NGTD HEME: Non-small cell lung cancer Pulmonary embolism diagnosed on 07/08/16 -Monitor CBC, -Had been started on chemoradiation therapy Dr. Monteiro -Heme onc is following- Dr. Monteiro -Heparin gtt DC and start Lovenox 60 mg q12 11/20/16 ENDO: -Electrolyte replacement protocol, sliding scale insulin for glycemic control PROPH: -Bilateral lower extremity SCDs. IV heparin-DC and start Lovenox 60 mg subcutaneous every 12, IV Protonix LINES: -Utilize peripheral IVs, Left subclavian CVP placed 11/12-DC after establishing PIV Level 2 PT/OT Shelia Dan MD Nov 20, 2016 12:22
--- NOTE | 2016-11-20 14:14 | PD.ONC.PN ---
Subjective Subjective Remarks Afebrile overnight. Patient resting. No family members at bedside. He says he is tired of being poked and prodded, "but I'm not ready to give up yet." Objective Data Date Time Temp Pulse Resp B/P Pulse Ox O2 Delivery O2 Flow Rate FiO2 11/20/16 11:22 99 Nasal Cannula 2.00 11/20/16 08:00 96 Nasal Cannula 1.50 11/20/16 06:00 87 11/20/16 04:00 82 11/20/16 04:00 98.0 96 17 129/76 97 11/20/16 04:00 97 Nasal Cannula 1.50 11/20/16 02:00 81 11/20/16 00:00 99 Nasal Cannula 1.50 11/20/16 00:00 98.0 96 18 123/72 99 11/20/16 00:00 78 11/19/16 22:00 92 11/19/16 20:00 96 11/19/16 20:00 99 Nasal Cannula 3.00 11/19/16 20:00 98.0 96 18 101/65 99 11/19/16 19:55 96 Nasal Cannula 2.00 11/19/16 18:00 87 11/19/16 16:00 98.0 87 17 96/62 99 11/19/16 16:00 99 Nasal Cannula 3.00 11/19/16 16:00 87 11/20/16 11/20/16 11/20/16 07:00 15:00 23:00 Intake Total 358 ml Output Total 570 ml Balance -212 ml Result Diagram: 11/20/16 0400 11/20/16 0400 Laboratory Results Laboratory Tests Test 11/19/16 11/19/16 11/19/16 11/19/16 14:55 16:30 18:30 22:00 Sodium Level 140 MEQ/L Potassium Level 2.7 MEQ/L Chloride Level 104 MEQ/L Carbon Dioxide Level 26.8 MEQ/L Anion Gap 9 MEQ/L Blood Urea Nitrogen 14 MG/DL Creatinine 0.47 MG/DL Estimat Glomerular Filtration 178 ML/MIN Rate Random Glucose 180 MG/DL Calcium Level 7.3 MG/DL Protein Corrected Calcium 8.7 MG/DL Total Bilirubin 0.3 MG/DL Aspartate Amino Transf 9 U/L (AST/SGOT) Alanine Aminotransferase LESS THAN 6 U/L (ALT/SGPT) Alkaline Phosphatase 97 U/L Total Protein 4.6 GM/DL Albumin 2.0 GM/DL Activated Partial GREATER THAN GREATER THAN 105.6 SEC Thromboplast Time 153.4 SEC 153.4 SEC Test 11/20/16 11/20/16 11/20/16 11/20/16 00:00 02:05 04:00 05:45 Activated Partial GREATER THAN 97.6 SEC 122.3 SEC Thromboplast Time 153.4 SEC White Blood Count 42.5 TH/MM3 Red Blood Count 3.14 MIL/MM3 Hemoglobin 9.1 GM/DL Hematocrit 27.7 % Mean Corpuscular Volume 88.0 FL Mean Corpuscular Hemoglobin 28.8 PG Mean Corpuscular Hemoglobin 32.7 % Concent Red Cell Distribution Width 18.9 % Platelet Count 275 TH/MM3 Mean Platelet Volume 6.7 FL Neutrophils (%) (Auto) 95.2 % Lymphocytes (%) (Auto) 0.8 % Monocytes (%) (Auto) 3.1 % Eosinophils (%) (Auto) 0.0 % Basophils (%) (Auto) 0.9 % Neutrophils # (Auto) 40.4 TH/MM3 Lymphocytes # (Auto) 0.3 TH/MM3 Monocytes # (Auto) 1.3 TH/MM3 Eosinophils # (Auto) 0.0 TH/MM3 Basophils # (Auto) 0.4 TH/MM3 CBC Comment AUTO DIFF Differential Total Cells 100 Counted Neutrophils % (Manual) 83 % Band Neutrophils % 12 % Monocytes % 2 % Neutrophils # (Manual) 41.7 TH/MM3 Metamyelocytes 1 % Myelocytes 2 % Differential Comment FINAL DIFF MANUAL Platelet Estimate NORMAL Platelet Morphology Comment NORMAL Helmet Cells OCC Acanthocytes OCC Sodium Level 143 MEQ/L Potassium Level 3.4 MEQ/L Chloride Level 107 MEQ/L Carbon Dioxide Level 27.3 MEQ/L Anion Gap 9 MEQ/L Blood Urea Nitrogen 14 MG/DL Creatinine 0.47 MG/DL Estimat Glomerular Filtration 178 ML/MIN Rate Random Glucose 133 MG/DL Calcium Level 7.3 MG/DL Protein Corrected Calcium 8.6 MG/DL Magnesium Level 1.4 MG/DL Total Bilirubin 0.4 MG/DL Aspartate Amino Transf 6 U/L (AST/SGOT) Alanine Aminotransferase LESS THAN 6 U/L (ALT/SGPT) Alkaline Phosphatase 80 U/L Total Protein 4.8 GM/DL Albumin 2.2 GM/DL Vancomycin Level Trough 26.1 MCG/ML Test 11/20/16 06:00 Activated Partial 41.3 SEC Thromboplast Time Culture Results Microbiology Date/Time Procedure Status Source Growth 11/18/16 10:40 Gram Stain - Final Resulted Fluid Pleural Fluid 11/18/16 10:40 Body Fluid Culture - Preliminary Resulted Fluid Pleural Fluid NO GROWTH IN 48 HOURS. 11/18/16 10:40 Acid Fast Stain Received Fluid Pleural Fluid Pending 11/18/16 10:40 Mycobacterial Culture Received Fluid Pleural Fluid Pending 11/18/16 10:40 Fungal Smear Received Fluid Pleural Fluid Pending 11/18/16 10:40 Fungal Culture Received Fluid Pleural Fluid Pending 11/19/16 08:00 Gram Stain - Final Resulted Fluid Pleural Fluid 11/19/16 08:00 Body Fluid Culture - Preliminary Resulted Fluid Pleural Fluid NO GROWTH IN 24 HOURS. 11/19/16 08:00 Acid Fast Stain Received Fluid Pleural Fluid Pending 11/19/16 08:00 Mycobacterial Culture Received Fluid Pleural Fluid Pending 11/19/16 08:00 Fungal Smear - Final Resulted Fluid Pleural Fluid NO FUNGAL ELEMENTS SEEN. 11/19/16 08:00 Fungal Culture Resulted Fluid Pleural Fluid Pending Imaging Studies Last 24 hours Impressions Chest X-Ray 11/20/16 0000 Signed Impressions: Service Date/Time: Sunday, November 20, 2016 10:33 - CONCLUSION: 1. Improving bibasilar airspace disease. 2. Left-sided chest tube without pneumothorax. Albaro Singleton MD Administered Medications Medications (Trade) Dose Ordered Sig/Elvia Route PRN Reason Start Time Stop Time Status Last Admin Dose Admin IV Flush (NS Flush) 2 ml UNSCH PRN IV FLUSH FLUSH AFTER USING IV ACCESS 11/12/16 11:00 11/19/16 09:00 IV Flush (NS Flush) 2 ml BID IV FLUSH 11/12/16 21:00 11/20/16 08:50 Acetaminophen (Tylenol) 650 mg Q6H PRN PO PAIN 1-10 AND/OR FEVER >101F 11/12/16 12:00 11/13/16 21:07 Pantoprazole Sodium (Protonix Inj) 40 mg DAILY IV 11/13/16 09:00 11/20/16 08:50 Tiotropium [place] (Spiriva Inh) 18 mcg DAILY INH 11/13/16 09:00 11/20/16 08:50 Clopidogrel Bisulfate 75 mg 75 mg DAILY PO 11/13/16 09:00 Hold 11/17/16 10:08 Norepinephrine Bitartrate (Levophed-Dextrose Drip) 250 ml @ 0 mls/hr TITRATE IV 11/12/16 13:30 11/12/16 18:48 Miscellaneous Information Patient in critical care unit? Ass... [id number] XX 11/12/16 18:30 11/12/16 18:30 Potassium Chloride 100 ml @ 50 mls/hr Q2H PRN IV For Potassium 2.8 - 3.2 mEq/L 11/13/16 09:45 11/18/16 09:46 Potassium Chloride 100 ml @ 50 mls/hr Q2H PRN IV For Potassium 2.8 - 3.2 mEq/L 11/13/16 09:45 11/19/16 05:02 Potassium Chloride 100 ml @ 50 mls/hr Q2H PRN IV For Potassium 3.3 - 3.5 mEq/L 11/13/16 09:45 11/20/16 06:26 Magnesium Sulfate 4 gm/Sodium Chloride 100 ml @ 50 mls/hr UNSCH PRN IV For Magnesium 0.9 - 1.1 mg/dL 11/13/16 09:45 11/19/16 09:02 Magnesium Sulfate 2 gm/Sodium Chloride 100 ml @ 50 mls/hr UNSCH PRN IV For Magnesium 1.2 - 1.6 mg/dL 11/13/16 09:45 11/15/16 16:59 Sodium Phosphate 30 mmol/Sodium Chloride 250 ml @ 42 mls/hr UNSCH PRN IV For Phosphorus < 2.5 mg/dL 11/13/16 09:45 11/15/16 16:59 Potassium Phosphate/Sodium Chloride (Potassium Phosphate Inj/NS 250 ml Inj) 260 ml @ 42 mls/hr UNSCH PRN IV SEE LABEL COMMENTS 11/13/16 09:45 11/13/16 13:05 Insulin Human Regular (NovoLIN R SUPPLEMENTAL SCALE) 1 Q6H SQ 11/13/16 10:15 11/19/16 16:25 Metronidazole 500 mg 500 mg Q8HR PO 11/14/16 14:00 11/20/16 05:57 Phenylephrine HCl/ Dextrose (Neosynephrine Inj/D5W 500 ml Inj) 500 ml @ 0 mls/hr TITRATE IV 11/14/16 17:15 11/15/16 12:54 Temazepam (Restoril) 7.5 mg HS PRN PO SLEEP 11/15/16 22:45 11/19/16 22:39 Aspirin (Ecotrin Ec) 81 mg DAILY PO 11/16/16 09:00 Hold 11/17/16 09:00 Furosemide (Lasix Inj) 40 mg Q12H IV PUSH 11/17/16 21:00 11/20/16 08:50 Amiodarone HCl (Cordarone) 400 mg DAILY PO 11/18/16 10:30 11/20/16 08:48 Metoprolol Tartrate (Lopressor) 12.5 mg Q12HR PO 11/18/16 10:30 11/20/16 08:48 Potassium Chloride (KCl) 30 meq DAILY PO 11/18/16 12:00 11/20/16 08:49 Hydrocortisone Sodium Succinate 50 mg 50 mg Q8HR IV PUSH 11/18/16 14:00 11/20/16 05:59 Vasopressin 40 units/Dextrose 100 ml @ 0 mls/hr Q0M IV 11/18/16 14:45 11/18/16 14:59 Cefepime HCl 2000 mg/Sodium Chloride 100 ml @ 200 mls/hr Q12H IV 11/18/16 18:00 11/20/16 05:59 Micafungin Sodium 100 mg/Sodium Chloride 100 ml @ 100 mls/hr Q24H IV 11/18/16 17:00 11/19/16 16:26 Vancomycin HCl/ Sodium Chloride (Vancomycin Inj/ NS 500 ml Inj) 515 ml @ 250 mls/hr Q12H IV 11/18/16 18:00 Hold 11/20/16 06:24 Enalapril Maleate (Vasotec) 2.5 mg DAILY PO 11/20/16 09:00 11/20/16 08:48 Objective Remarks GENERAL: Chronically ill frail male, lying in bed. SKIN: Warm and dry. ecchymoses noted on bilateral arms HEAD: Normocephalic. EYES: No scleral icterus. No injection or drainage. NECK: Supple, trachea midline. CARDIOVASCULAR: +S1/S2 RESPIRATORY: Breath sounds equal bilaterally. No accessory muscle use. GASTROINTESTINAL: Abdomen soft, non-tender, nondistended. EXTREMITIES: No cyanosis NEUROLOGICAL: awake and alert, normal speech. Assessment/Plan Problem List: (1) Septic shock Status: Acute Plan: --on IV abx --BC, 11/13 +S. Aureus --CT chest showed bilateral pleural effusions, left greater than right. 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 --was some improvement of his tumor bulk with concurrent chemotherapy and radiation. (3) Pleural effusion Status: Acute Plan: --s/p pigtail chest tube placement, 11/18, cytology pending --could be cardiac vs malignant -- If the effusions are malignant, then he will have Stage IV disease. (4) Normocytic anemia Status: Acute Plan: -- recommend keeping his hemoglobin greater than 8. (5) Afib Status: Chronic Plan: --on Lovenox 60mg SQ BID --cardiology following. --on Amiodarone + Lopressor Assessment 65y/o with NSCLC admitted with sepsis. h/o tobacco abuse. COPD. Hypertension. Hyperlipidemia. 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 Pulmonary embolism. Peripheral vascular disease status post revascularization of the lower extremities. History of coronary artery disease/RI, status post cardiac catheterization with PCI and drug eluding stent. Plan 1. monitor CBC 2. continue aggressive, supportive care. Attending Statement The exam, history, and the medical decision-making described in the above note were completed with the assistance of the mid-level provider. I reviewed and agree with the findings presented. I attest that I had a [id number] encounter with the patient on the same day, and personally performed and documented my assessment and findings in the medical record. Lizbeth Cameron Nov 20, 2016 14:14 Rj Monteiro MD Nov 20, 2016 22:53
[2016-11-20] MEDS: POTASSIUM CHLOR 40 MEQ PREMIX 100 ML IV PRN ×2 (14:55→16:47)
--- NOTE | 2016-11-20 15:56 | HHI.HCPN ---
Reason for visit a. To assist with evaluation and management of symptoms including: Dyspnea b. To assist medical decision maker(s) with: better understanding of current medical conditions; weighing benefits/burdens of medical treatment options; making medical treatment decisions. . Subjective/Interval History Pt currently denies pain and stated he is breathing better after chest tube place. I asked him if he was ready for hospice. He reaffirms that he was not ready for hospice. When I ask him why? "Do you think hospice will kill you, and just give you comfort meds?" He stated "no, I am just not ready to ." He understands that he is going to pass away from his cancer. Ask him if there are anything I could clarify for him about hospice. "He just stated, I am just not ready to ." Continue to endorse DNR. Pt's was not at bedside. He is appreciative of the visit, amenable for me to continue to follow. Family/friend interactions no family at bedside today. Advance Directives Living Will: Never completed Health Care Surrogate: Never completed Durable Power of Field Scout: Never completed Objective Vital Signs Date Time Temp Pulse Resp B/P Pulse Ox O2 Delivery O2 Flow Rate FiO2 11/20/16 14:00 88 11/20/16 12:00 98.3 97 22 112/76 97 11/20/16 12:00 97 Nasal Cannula 1.50 11/20/16 12:00 87 11/20/16 11:22 99 Nasal Cannula 2.00 11/20/16 10:00 90 11/20/16 08:00 97.6 96 13 144/79 96 11/20/16 08:00 86 11/20/16 08:00 96 Nasal Cannula 1.50 11/20/16 06:00 87 11/20/16 04:00 82 11/20/16 04:00 98.0 96 17 129/76 97 11/20/16 04:00 97 Nasal Cannula 1.50 11/20/16 02:00 81 11/20/16 00:00 99 Nasal Cannula 1.50 11/20/16 00:00 98.0 96 18 123/72 99 11/20/16 00:00 78 11/19/16 22:00 92 11/19/16 20:00 96 11/19/16 20:00 99 Nasal Cannula 3.00 11/19/16 20:00 98.0 96 18 101/65 99 11/19/16 19:55 96 Nasal Cannula 2.00 11/19/16 18:00 87 11/19/16 16:00 98.0 87 17 96/62 99 11/19/16 16:00 99 Nasal Cannula 3.00 11/19/16 16:00 87 Intake & Output 11/20/16 11/20/16 07:00 19:00 Intake Total 1419 ml 783 ml Output Total 2370 ml 1445 ml Balance -951 ml -662 ml Intake Oral 100 ml 120 ml IV Total 1319 ml 663 ml Output Urine Total 2350 ml 1425 ml Chest Tube Drainage Total 20 ml 20 ml # Bowel Movements 0 1 Physical Exam CONSTITUTIONAL/GENERAL: This is a profoundly weak and somewhat cachectic patient , in no distress. NECK: Trachea midline. Supple, nontender. No palpable thyroid enlargement or nodularity. CARDIOVASCULAR: Irregularly irregular rhythm without murmurs or rubs. No JVD. Peripheral pulses weak/symmetric. RESPIRATORY/CHEST: Symmetric, mildly labored respirations. Scattered rales and rhonchi. chest tube. GASTROINTESTINAL: Abdomen soft, non-tender, nondistended. No hepato-splenomegaly , or palpable masses. No guarding. Bowel sounds present. GENITOURINARY: Without palpable bladder distension. MUSCULOSKELETAL: Extremities without clubbing, cyanosis, but there is some 1+ edema in his right arm and both feet.. No joint tenderness or effusion noted. No calf tenderness. No mottling or clubbing. NEUROLOGICAL: Awake and alert. He is profoundly weak globally. Follows commands. Cognitively sharp. Moves all extremities. PSYCHIATRIC: No obvious anxiety/depression. no apparent hallucinations or other psychotic thought process. . Diagnostic Tests Laboratory Laboratory Tests Test 11/17/16 11/17/16 11/18/16 11/18/16 15:45 22:30 05:45 10:40 Activated Partial 60.8 SEC Thromboplast Time (24.3-30.1) Potassium Level 2.6 MEQ/L 4.2 MEQ/L 2.7 MEQ/L (3.5-5.1) (3.5-5.1) (3.5-5.1) White Blood Count 48.8 TH/MM3 (4.0-11.0) Red Blood Count 3.69 MIL/MM3 (4.50-5.90) Hemoglobin 10.3 GM/DL (13.0-17.0) Hematocrit 32.2 % (39.0-51.0) Mean Corpuscular Volume 87.4 FL (80.0-100.0) Mean Corpuscular Hemoglobin 27.8 PG (27.0-34.0) Mean Corpuscular Hemoglobin 31.8 % Concent (32.0-36.0) Red Cell Distribution Width 19.0 % (11.6-17.2) Platelet Count 323 TH/MM3 (150-450) Mean Platelet Volume 7.0 FL (7.0-11.0) Neutrophils (%) (Auto) 97.1 % (16.0-70.0) Lymphocytes (%) (Auto) 0.9 % (9.0-44.0) Monocytes (%) (Auto) 1.9 % (0.0-8.0) Eosinophils (%) (Auto) 0.0 % (0.0-4.0) Basophils (%) (Auto) 0.1 % (0.0-2.0) Neutrophils # (Auto) 47.4 TH/MM3 (1.8-7.7) Lymphocytes # (Auto) 0.4 TH/MM3 (1.0-4.8) Monocytes # (Auto) 0.9 TH/MM3 (0-0.9) Eosinophils # (Auto) 0.0 TH/MM3 (0-0.4) Basophils # (Auto) 0.0 TH/MM3 (0-0.2) CBC Comment AUTO DIFF Differential Total Cells 100 Counted Neutrophils % (Manual) 88 % (16-70) Band Neutrophils % 7 % (0-6) Monocytes % 1 % (0-8) Neutrophils # (Manual) 48.3 TH/MM3 (1.8-7.7) Metamyelocytes 1 % (0-1) Myelocytes 3 % (0-0) Differential Comment FINAL DIFF MANUAL Platelet Estimate NORMAL (NORMAL) Platelet Morphology Comment NORMAL (NORMAL) Sodium Level 139 MEQ/L (136-145) Chloride Level 104 MEQ/L (98-107) Carbon Dioxide Level 24.5 MEQ/L (21.0-32.0) Anion Gap 11 MEQ/L (5-15) Blood Urea Nitrogen 13 MG/DL (7-18) Creatinine 0.51 MG/DL (0.60-1.30) Estimat Glomerular Filtration 162 ML/MIN Rate (>89) Random Glucose 145 MG/DL (74-106) Calcium Level 7.4 MG/DL (8.5-10.1) Protein Corrected Calcium 8.8 MG/DL (8.5-10.1) Magnesium Level 1.1 MG/DL (1.5-2.5) Total Bilirubin 0.2 MG/DL (0.2-1.0) Aspartate Amino Transf 6 U/L (15-37) (AST/SGOT) Alanine Aminotransferase LESS THAN 6 (ALT/SGPT) U/L (12-78) Alkaline Phosphatase 105 U/L (45-117) Total Protein 4.7 GM/DL (6.4-8.2) Albumin 1.7 GM/DL (3.4-5.0) Pleural Fluid pH 8.0 Pleural Fluid WBC 51 /MM3 (0-10) Pleural Fluid RBC 0 /MM3 (0-0) Pleural Fluid Neutrophils 56 % Pleural Fluid Lymphocytes 33 % Pleural Fluid Monocytes 11 % Pleural Fluid Comment Pleural Fluid Total Protein 1.4 GM/DL Pleural Fluid LDH 129 U/L Pleural Fluid Glucose 142 MG/DL Pleural Fluid Amylase 14 U/L Test 11/18/16 11/19/16 11/19/16 11/19/16 22:10 04:56 08:00 14:55 Potassium Level 2.8 MEQ/L 3.9 MEQ/L 2.7 MEQ/L (3.5-5.1) (3.5-5.1) (3.5-5.1) White Blood Count 45.9 TH/MM3 45.5 TH/MM3 (4.0-11.0) (4.0-11.0) Red Blood Count 3.40 MIL/MM3 3.44 MIL/MM3 (4.50-5.90) (4.50-5.90) Hemoglobin 9.7 GM/DL 9.7 GM/DL (13.0-17.0) (13.0-17.0) Hematocrit 29.8 % 30.1 % (39.0-51.0) (39.0-51.0) Mean Corpuscular Volume 87.6 FL 87.7 FL (80.0-100.0) (80.0-100.0) Mean Corpuscular Hemoglobin 28.5 PG 28.3 PG (27.0-34.0) (27.0-34.0) Mean Corpuscular Hemoglobin 32.5 % 32.2 % Concent (32.0-36.0) (32.0-36.0) Red Cell Distribution Width 18.8 % 18.8 % (11.6-17.2) (11.6-17.2) Platelet Count 284 TH/MM3 289 TH/MM3 (150-450) (150-450) Mean Platelet Volume 6.8 FL 6.9 FL (7.0-11.0) (7.0-11.0) Neutrophils (%) (Auto) 96.6 % (16.0-70.0) Lymphocytes (%) (Auto) 0.9 % (9.0-44.0) Monocytes (%) (Auto) 2.4 % (0.0-8.0) Eosinophils (%) (Auto) 0.0 % (0.0-4.0) Basophils (%) (Auto) 0.1 % (0.0-2.0) Neutrophils # (Auto) 44.3 TH/MM3 (1.8-7.7) Lymphocytes # (Auto) 0.4 TH/MM3 (1.0-4.8) Monocytes # (Auto) 1.1 TH/MM3 (0-0.9) Eosinophils # (Auto) 0.0 TH/MM3 (0-0.4) Basophils # (Auto) 0.0 TH/MM3 (0-0.2) CBC Comment AUTO DIFF Differential Total Cells 100 Counted Neutrophils % (Manual) 77 % (16-70) Band Neutrophils % 15 % (0-6) Lymphocytes % 3 % (9-44) Monocytes % 3 % (0-8) Neutrophils # (Manual) 43.1 TH/MM3 (1.8-7.7) Myelocytes 2 % (0-0) Differential Comment FINAL DIFF MANUAL Toxic Granulation 1+ (NORMAL) Platelet Estimate NORMAL (NORMAL) Platelet Morphology Comment NORMAL (NORMAL) Ovalocytes 1+ (NORMAL) [place] Cells 1+ (NORMAL) Sodium Level 140 MEQ/L 140 MEQ/L (136-145) (136-145) Chloride Level 105 MEQ/L 104 MEQ/L (98-107) (98-107) Carbon Dioxide Level 26.0 MEQ/L 26.8 MEQ/L (21.0-32.0) (21.0-32.0) Anion Gap 9 MEQ/L (5-15) 9 MEQ/L (5-15) Blood Urea Nitrogen 14 MG/DL (7-18) 14 MG/DL (7-18) Creatinine 0.43 MG/DL 0.47 MG/DL (0.60-1.30) (0.60-1.30) Estimat Glomerular Filtration 197 ML/MIN 178 ML/MIN Rate (>89) (>89) Random Glucose 111 MG/DL 180 MG/DL (74-106) (74-106) Calcium Level 7.3 MG/DL 7.3 MG/DL (8.5-10.1) (8.5-10.1) Protein Corrected Calcium 8.8 MG/DL 8.7 MG/DL (8.5-10.1) (8.5-10.1) Magnesium Level 1.0 MG/DL (1.5-2.5) Total Bilirubin 0.3 MG/DL 0.3 MG/DL (0.2-1.0) (0.2-1.0) Aspartate Amino Transf 8 U/L (15-37) 9 U/L (15-37) (AST/SGOT) Alanine Aminotransferase LESS THAN 6 LESS THAN 6 (ALT/SGPT) U/L (12-78) U/L (12-78) Alkaline Phosphatase 81 U/L (45-117) 97 U/L (45-117) Total Protein 4.5 GM/DL 4.6 GM/DL (6.4-8.2) (6.4-8.2) Albumin 2.0 GM/DL 2.0 GM/DL (3.4-5.0) (3.4-5.0) Prothrombin Time 13.4 SEC (9.8-11.6) Prothromb Time International 1.2 RATIO Ratio Activated Partial 35.3 SEC Thromboplast Time (24.3-30.1) Pleural Fluid WBC 2187 /MM3 (0-10) Pleural Fluid RBC 28617 /MM3 (0-0) Pleural Fluid Neutrophils 99 % Pleural Fluid Lymphocytes 1 % Pleural Fluid Total Protein 1.7 GM/DL Pleural Fluid LDH 2753 U/L Pleural Fluid Glucose 22 MG/DL Pleural Fluid Amylase 10 U/L Test 11/19/16 11/19/16 11/19/16 11/20/16 16:30 18:30 22:00 00:00 Activated Partial GREATER THAN GREATER THAN 105.6 SEC GREATER THAN Thromboplast Time 153.4 SEC 153.4 SEC (24.3-30.1) 153.4 SEC (24.3-30.1) (24.3-30.1) (24.3-30.1) Test 11/20/16 11/20/16 11/20/16 11/20/16 02:05 04:00 05:45 06:00 Activated Partial 97.6 SEC 122.3 SEC 41.3 SEC Thromboplast Time (24.3-30.1) (24.3-30.1) (24.3-30.1) White Blood Count 42.5 TH/MM3 (4.0-11.0) Red Blood Count 3.14 MIL/MM3 (4.50-5.90) Hemoglobin 9.1 GM/DL (13.0-17.0) Hematocrit 27.7 % (39.0-51.0) Mean Corpuscular Volume 88.0 FL (80.0-100.0) Mean Corpuscular Hemoglobin 28.8 PG (27.0-34.0) Mean Corpuscular Hemoglobin 32.7 % Concent (32.0-36.0) Red Cell Distribution Width 18.9 % (11.6-17.2) Platelet Count 275 TH/MM3 (150-450) Mean Platelet Volume 6.7 FL (7.0-11.0) Neutrophils (%) (Auto) 95.2 % (16.0-70.0) Lymphocytes (%) (Auto) 0.8 % (9.0-44.0) Monocytes (%) (Auto) 3.1 % (0.0-8.0) Eosinophils (%) (Auto) 0.0 % (0.0-4.0) Basophils (%) (Auto) 0.9 % (0.0-2.0) Neutrophils # (Auto) 40.4 TH/MM3 (1.8-7.7) Lymphocytes # (Auto) 0.3 TH/MM3 (1.0-4.8) Monocytes # (Auto) 1.3 TH/MM3 (0-0.9) Eosinophils # (Auto) 0.0 TH/MM3 (0-0.4) Basophils # (Auto) 0.4 TH/MM3 (0-0.2) CBC Comment AUTO DIFF Differential Total Cells 100 Counted Neutrophils % (Manual) 83 % (16-70) Band Neutrophils % 12 % (0-6) Monocytes % 2 % (0-8) Neutrophils # (Manual) 41.7 TH/MM3 (1.8-7.7) Metamyelocytes 1 % (0-1) Myelocytes 2 % (0-0) Differential Comment FINAL DIFF MANUAL Platelet Estimate NORMAL (NORMAL) Platelet Morphology Comment NORMAL (NORMAL) Helmet Cells OCC (NORMAL) Acanthocytes OCC (NORMAL) Sodium Level 143 MEQ/L (136-145) Potassium Level 3.4 MEQ/L (3.5-5.1) Chloride Level 107 MEQ/L (98-107) Carbon Dioxide Level 27.3 MEQ/L (21.0-32.0) Anion Gap 9 MEQ/L (5-15) Blood Urea Nitrogen 14 MG/DL (7-18) Creatinine 0.47 MG/DL (0.60-1.30) Estimat Glomerular Filtration 178 ML/MIN Rate (>89) Random Glucose 133 MG/DL (74-106) Calcium Level 7.3 MG/DL (8.5-10.1) Protein Corrected Calcium 8.6 MG/DL (8.5-10.1) Magnesium Level 1.4 MG/DL (1.5-2.5) Total Bilirubin 0.4 MG/DL (0.2-1.0) Aspartate Amino Transf 6 U/L (15-37) (AST/SGOT) Alanine Aminotransferase LESS THAN 6 (ALT/SGPT) U/L (12-78) Alkaline Phosphatase 80 U/L (45-117) Total Protein 4.8 GM/DL (6.4-8.2) Albumin 2.2 GM/DL (3.4-5.0) Vancomycin Level Trough 26.1 MCG/ML (5.0-10.0) Test 11/20/16 12:00 Activated Partial 72.0 SEC Thromboplast Time (24.3-30.1) Potassium Level 2.7 MEQ/L (3.5-5.1) Result Diagram: 11/20/16 0400 11/20/16 1200 Microbiology Microbiology Date/Time Procedure Status Source Growth 11/18/16 10:40 Gram Stain - Final Resulted Fluid Pleural Fluid 11/18/16 10:40 Body Fluid Culture - Preliminary Resulted Fluid Pleural Fluid NO GROWTH IN 48 HOURS. 11/18/16 10:40 Acid Fast Stain Received Fluid Pleural Fluid Pending 11/18/16 10:40 Mycobacterial Culture Received Fluid Pleural Fluid Pending 11/18/16 10:40 Fungal Smear Received Fluid Pleural Fluid Pending 11/18/16 10:40 Fungal Culture Received Fluid Pleural Fluid Pending 11/19/16 08:00 Gram Stain - Final Resulted Fluid Pleural Fluid 11/19/16 08:00 Body Fluid Culture - Preliminary Resulted Fluid Pleural Fluid NO GROWTH IN 24 HOURS. 11/19/16 08:00 Acid Fast Stain Received Fluid Pleural Fluid Pending 11/19/16 08:00 Mycobacterial Culture Received Fluid Pleural Fluid Pending 11/19/16 08:00 Fungal Smear - Final Resulted Fluid Pleural Fluid NO FUNGAL ELEMENTS SEEN. 11/19/16 08:00 Fungal Culture Resulted Fluid Pleural Fluid Pending Procedures Thoracentesis and thoracostomy, left chest . Assessment and Plan Disease Oriented Problem List: (1) septic shock / UTI / bacteremia (2) hypoxic respiratory failure (3) metastatic adenocarcinoma of lung, s/p radiation and chemotherapy (4) homelessness (5) Pleural effusions, s/p thoracentesis and thoracostomy (6) malnutrition, failure to thrive (7) history of C. 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 They have 2 children locally. Spiritual: He says he is not spiritual or presybeterian, and he does not desire community service coordinator visits. Legal: The patient has capacity for decision-making at this time. When he loses that capacity in the upcoming days, his will be his proxy decision maker. Ethical issues impacting care: None. . Important Contacts Spouse: Tala Trujillo [phone], but she is almost always at the bedside and staying overnight in the [facility] since they are essentially homeless . Prognosis The patient is terminal. He likely has just days or weeks to live. . Code Status: No Code Plan * DO NOT RESUSCITATE - per request of patient and spouse 11/16/16. * DECISION-MAKING: The patient has capacity for decision-making at this time. When he loses that capacity in the upcoming days, his will be his proxy decision maker. * Previous Discussion The patient says that he understands that he is terminal, but he does not want to "give up." He tells me that his oncologist came by 11/17 and informed him that he was too weak to get any more chemotherapy. The patient says "I am stubborn, I am going to get stronger." I told him that, with advanced cancer, he will not have improving strength, and in fact will continue to decline. He says, "I know that's what they say, but I am stubborn. " The patient's says she supports her 's decisions, and they do not want hospice services at this time. I told him that usually, in advanced cancer patients, life is not shortened by engaging hospice services; he says "not now.". * Goals of care discussion today (_ He reaffirms that he was not ready for hospice. When I ask him why ? "Do you think hospice will kill you, and just give you comfort meds?" He stated "no, I am just not ready to ." He understands that he is going to pass away from his cancer. Ask him if there are anything I could clarify for him about hospice. "He just stated, I am just not ready to ." Continue to endorse DNR. * SYMPTOMS: The patient still has some dyspnea, although that has improved. If he does transition to comfort care, he will benefit from judicious opiate and benzodiazepine dosing to manage his dyspnea. * Hospice will continue to follow. * Palliative Care as well, will continue to follow the patient during this hospitalization . Time Spent Total Floor Time (mins): 45 Face to Face Time (mins): 35 Attestation To help prompt me to consider important information that might be impacting today's encounter and assessment, information from prior notes written by myself or my colleagues may have been "brought forward" into today's note. My signature on this note, however, is an attestation that I personally performed the exam, history, and/or decision-making noted today, and, unless otherwise indicated, the interactions with patient, family, and staff as well as the review of records all occurred today. I also attest that the listed assessment and stated plan reflect my best clinical judgment today based on the combination of historical information, prior notes, and today's exam/ interactions. When time spent is documented, it refers only to time spent today by the signer, or if indicated, combined time spent today by collaborating physician/nurse practitioner. Shahzad Van MD Nov 20, 2016 15:56
[2016-11-20] MEDS: MICAFUNGIN INJ 100 MG in SODIUM CHLORIDE 0.9% INJ 100 ML IV SCH (16:47)
[2016-11-20] MEDS: ENOXAPARIN SODIUM 60 MG/0.6 ML SYRINGE SQ SCH (16:48)
[2016-11-20 18:40] LABS: AUTOMATED NEUTROPHIL # 39.8 TH/MM3 (1.8-7.7); BASOPHIL # 0.1 TH/MM3 (0-0.2); BASOPHIL % 0.4 % (0.0-2.0); HEMATOCRIT 29.2 % (39.0-51.0); LYMPH % 0.6 % (9.0-44.0); LYMPHOCYTE # 0.2 TH/MM3 (1.0-4.8); MEAN CELL VOLUME 88.1 FL (80.0-100.0); MEAN CORPUSCULAR HEMOGLOBIN 28.3 PG (27.0-34.0); MEAN CORPUSCULAR HGB CONC 32.1 % (32.0-36.0); MONO % 2.7 % (0.0-8.0); NEUT % 96.3 % (16.0-70.0); PLATELET COUNT 301 TH/MM3 (150-450); RED BLOOD COUNT 3.31 MIL/MM3 (4.50-5.90); RED CELL DISTRIBUTION WIDTH 19.1 % (11.6-17.2); WHITE BLOOD COUNT 41.4 TH/MM3 (4.0-11.0)
[2016-11-20 18:43] LABS: HEMO FLAGS AUTO DIFF
[2016-11-20 19:02] LABS: ALKALINE PHOSPHATASE 84 U/L (45-117); ALT (GPT) LESS THAN 6 U/L (12-78); ANION GAP 8 MEQ/L (5-15); AST (GOT) 9 U/L (15-37); BICARBONATE 28.2 MEQ/L (21.0-32.0); BLOOD UREA NITROGEN 12 MG/DL (7-18); CALCIUM-PROTEIN CORRECTED 8.3 MG/DL (8.5-10.1); CHLORIDE 104 MEQ/L (98-107); GLOMERULAR FILTRATION RATE 187 ML/MIN (>89); MAGNESIUM 1.3 MG/DL (1.5-2.5); POTASSIUM 3.8 MEQ/L (3.5-5.1); SODIUM (NA) 140 MEQ/L (136-145); TOTAL BILIRUBIN ADULT 0.4 MG/DL (0.2-1.0)
[2016-11-20 19:24] LABS: MYELOCYTES 2 % (0-0); POLYS (SEG NEUTROPHILS) 97 % (16-70); WBC DIFF SAMPLE 100
[2016-11-20 19:25] LABS: OVALOCYTES 1+ (NORMAL); PLATELET ESTIMATE SMEAR NORMAL (NORMAL); PLATELET MORPHOLOGY NORMAL (NORMAL); SCAN/DIFF FINAL DIFF MANUAL
[2016-11-20] MEDS: TEMAZEPAM 7.5 MG CAP PO PRN (21:13)
[2016-11-21] VITALS (14 sets, daily range): BP systolic 77–129; BP diastolic 57–80; PULSE 85–103; RESP 16–26; TEMP 98.4–99.1; O2SAT 93–99
[2016-11-21] MEDS: INSULIN NovoLIN REGULAR SUPPLEMENTAL SCALE SQ SCH ×4 (04:15→22:12)
[2016-11-21] MEDS: ENOXAPARIN SODIUM 60 MG/0.6 ML SYRINGE SQ SCH ×2 (04:20→17:11)
[2016-11-21] MEDS: metroNIDAZOLE 500 MG TAB PO SCH ×3 (04:21→22:12)
[2016-11-21] MEDS: CEFEPIME INJ 2,000 MG in SODIUM CHLORIDE 0.9% INJ 100 ML IV SCH ×2 (04:21→17:11)
[2016-11-21] MEDS: HYDROCORTISONE SOD SUCCINATE 100 MG VIAL IV PUSH SCH ×2 (04:21→20:16)
[2016-11-21 06:07] LABS: AUTOMATED NEUTROPHIL # 40.8 TH/MM3 (1.8-7.7); BASOPHIL % 0.1 % (0.0-2.0); LYMPH % 0.9 % (9.0-44.0); LYMPHOCYTE # 0.4 TH/MM3 (1.0-4.8); MEAN CELL VOLUME 87.6 FL (80.0-100.0); MEAN CORPUSCULAR HEMOGLOBIN 28.6 PG (27.0-34.0); MEAN CORPUSCULAR HGB CONC 32.7 % (32.0-36.0); PLATELET COUNT 302 TH/MM3 (150-450)
[2016-11-21 06:29] LABS: HEMO FLAGS AUTO DIFF
--- NOTE | 2016-11-21 06:55 | RADRPT ---
EXAM DATE/TIME: 11/21/2016 05:25 [facility] COMPARISON: CHEST SINGLE AP, November 20, 2016, 10:33. INDICATIONS : Respiratory disease. MEDICAL HISTORY : Hypertension. Chronic obstructive pulmonary disease. SURGICAL HISTORY : Appendectomy. ENCOUNTER: Subsequent ACUITY: 1 week PAIN SCORE: Non-responsive. LOCATION: Bilateral chest FINDINGS: Left central line tip is in superior vena cava. There is a left-sided chest tube without significant pneumothorax. Bilateral mostly basilar airspace disease is present. Heart size within normal limits. CONCLUSION: 1. Small caliber left chest tube without significant pneumothorax. Left central line tip in superior vena cava. Stable bilateral airspace disease over the last day. Cj Crouch MD on November 21, 2016 at 6:52 Board Certified Radiologist. This report was verified electronically.
--- NOTE | 2016-11-21 06:55 | MB ---
cc: JAMAAL WAYNE DATE OF CONSULTATION: 11/20/2016 REASON FOR CONSULTATION Respiratory distress and COPD. HISTORY OF PRESENT ILLNESS This 64-year-old white male with a history of COPD, history of non-small cell lung cancer and hypertension as well as coronary artery disease has received radiation therapy for a right hilar lower lobe mass over the past two months. The patient also has a known history of pulmonary embolism and has been on Lovenox. He has a past history of STEMI in June 2016 status post PCI. He was admitted this past week with a history of fever, chills, hypotension and confusion. The patient had been on antibiotics but apparently was confused and severely hypotensive and had loose stools. He was given IV fluids and pressors and had urine and blood cultures. He was started on broad-spectrum antibiotic therapy. He also has had significant leg swelling as well as multiple skin ulcers and has had chronic right basilar atelectasis as well as bilateral pleural effusions requiring thoracentesis. Upon admission he was also on oxygen via nasal cannula. Since admission he has been treated by the infectious disease service for sepsis as well as C. diff colitis and UTI. The patient improved over the past five days and is now on oxygen at two liters nasal cannula maintaining a sat of 96%. He is alert and oriented, cooperative and breathing easier. He does have an occasional cough but no hemoptysis and no fevers or chills. PAST MEDICAL HISTORY 1. STEMI on 07/08/2016 status post cardiac cath and PCI. 2. Adenocarcinoma of the right lung status post radiation therapy as well as chemotherapy with cisplatin and Taxotere. 3. Acute pulmonary embolism diagnosed in June, has been on Lovenox. 4. Hypertension. 5. History of CVA with left leg weakness. 6. Peripheral vascular disease status post revascularization. PAST SURGICAL HISTORY 1. Hernia repair x2. 2. Appendectomy. 3. Cardiac cath. ALLERGIES No drug allergies. HABITS The patient smoked one pack per day for 50 years and quit. Alcohol use moderate. MEDICATIONS Med list was reviewed and includes: 1. Spiriva, one capsule a day. 2. Ventolin two puffs p.r.n. 3. Prednisone 10 mg b.i.d. 4. Flagyl 500 mg t.i.d. 5. Lisinopril 2.5 mg a day. 6. Lovenox 60 mg subcu q.12h. 7. Lipitor 40 mg h.s. 8. Plavix 75 mg daily. 9. Metoprolol 25 mg every 8 hours. 10.Multivitamin. REVIEW OF SYSTEMS The patient has lost weight. He has inability to sit up or walk. He has ulcers of his skin and heels. He has leg swelling. Denies calf muscle pains. He has dizzy attacks, postnasal drip, wheezing and cough, epigastric distress, loss of appetite, dysphagia, depression and anxiety. PHYSICAL EXAMINATION GENERAL: This is a thinly built elderly man who is pale and dyspneic and appears chronically ill. VITAL SIGNS: Blood pressure 90/60, pulse 110, respirations 24, temperature 98.2 HEENT: Head normocephalic. Pupils are reactive. Tongue moist. Throat is injected. Nasal mucosa is edematous. NECK: Supple. No bruits or thyroid enlargement. CHEST: Decreased breath sounds at the bases, mostly the right base with crackles at the lung bases. HEART: The heart sounds are irregular, S1 and S2, no murmur, no S3. ABDOMEN: Soft, nontender. No organomegaly. Bowel sounds are active. EXTREMITIES: Decreased peripheral pulses. NEUROLOGIC: Reflexes are 1+. The patient does have weakness of the lower extremities with some muscle wasting. SKIN: Skin ulcerations. MENTAL STATUS: Mentation is normal. The patient is alert and cooperative. IMPRESSION 1. Chronic right basilar atelectasis with pleural effusion. 2. Adenocarcinoma of the right lung with metastatic disease. 3. Status post chemotherapy and radiation therapy. 4. History of C. diff colitis. 5. History of coronary artery disease. 6. Hypertension. PLAN The patient will be maintained on O2 at 2.5 liters. Continue Lovenox 60 mg subcu b.i.d. and nebulized albuterol solution q.6h. p.r.n. Will continue with hydrocortisone 50 mg b.i.d. and continue with antibiotic coverage per the infectious disease service which includes cefepime and Flagyl. Lasix will be added 40 mg q.12h. and electrolytes and CBC to be repeated. Diet and aspiration precautions have been started. The patient will be given an incentive spirometer to use every 2-3 hours. Thank you for this consultation. MD BRITNI Hernández/AYLIN /6:19 PM /6:37 AM
[2016-11-21 06:58] LABS: ALKALINE PHOSPHATASE 77 U/L (45-117); ALT (GPT) LESS THAN 6 U/L (12-78); ANION GAP 9 MEQ/L (5-15); AST (GOT) 5 U/L (15-37); BICARBONATE 29.3 MEQ/L (21.0-32.0); BLOOD UREA NITROGEN 14 MG/DL (7-18); CALCIUM-PROTEIN CORRECTED 8.6 MG/DL (8.5-10.1); GLOMERULAR FILTRATION RATE 166 ML/MIN (>89); MAGNESIUM 1.1 MG/DL (1.5-2.5); POTASSIUM 2.9 MEQ/L (3.5-5.1); SODIUM (NA) 141 MEQ/L (136-145); TOTAL BILIRUBIN ADULT 0.4 MG/DL (0.2-1.0)
[2016-11-21 07:32] LABS: CHLORIDE 103 MEQ/L (98-107)
[2016-11-21 08:16] LABS: BANDS 6 % (0-6); METAMYELOCYTES 1 % (0-1); MYELOCYTES 1 % (0-0); POLYS (SEG NEUTROPHILS) 85 % (16-70); WBC DIFF SAMPLE 100
[2016-11-21 08:17] LABS: KERATOCYTES OCC (NORMAL); PLATELET ESTIMATE SMEAR NORMAL (NORMAL); PLATELET MORPHOLOGY NORMAL (NORMAL); SCAN/DIFF FINAL DIFF MANUAL
[2016-11-21] MEDS: METOPROLOL TARTRATE 25 MG TAB PO SCH ×3 (09:00→20:17)
[2016-11-21] MEDS: ENALAPRIL MALEATE 2.5 MG TAB PO SCH ×2 (09:00→10:15)
[2016-11-21] MEDS: MAGNESIUM SULFATE 1 GM PREMIX 100 ML IV SCH ×2 (10:14→17:11)
[2016-11-21] MEDS: NS + KCL 40 MEQ INJ 1,000 ML IV SCH ×2 (10:14→17:12)
[2016-11-21] MEDS: AMIODARONE 200 MG TAB PO SCH (10:15)
[2016-11-21] MEDS: FUROSEMIDE 40 MG/4 ML VIAL IV PUSH SCH ×2 (10:15→20:16)
[2016-11-21] MEDS: PANTOPRAZOLE SODIUM 40 MG VIAL IV SCH (10:15)
[2016-11-21] MEDS: POTASSIUM CHLORIDE 10 MEQ CONTROLLED RELEASE TAB PO SCH (10:16)
[2016-11-21] MEDS: SODIUM CHLORIDE 0.9% FLUSH 5 ML FLUSH IV FLUSH SCH ×2 (10:16→20:17)
[2016-11-21] MEDS: TIOTROPIUM BROMIDE 18 MCG INH INH SCH (10:16)
--- NOTE | 2016-11-21 10:17 | HHI.CCPN ---
Subjective Remarks/Hospital Course This is a 64-year-old male with history of COPD, hypertension, coronary artery disease, STEMI on 07/08/16 s/p PCI and DELMY (Dr. Crouch), history of C. difficile colitis, non-small cell lung cancer receiving chemoradiation per Dr. Monteiro, history of pulmonary embolism on Lovenox who was admitted to hospital recently from 07/08-08/31/16 with above diagnoses. During that admission he was noted to have a mediastinal and lung mass which was invading bilateral mainstem bronchi- subsequently diagnosed as a non-small cell lung cancer(adenocarcinoma). He had complete atelectasis of the right lung last admission which required bronchoscopy 2. With chemoradiation obstruction improved with resolution of atelectasis. Today patient was brought from the skilled nursing for fever, hypotension, confusion. Apparently patient was to be started on antibiotics for a UTI however prior to starting the antibiotics, he was found to be profoundly hypotensive, confused and was sent to ER. The patient also was noted to have diarrhea. His initial systolic blood pressure was in the 70s, rectal temperature of 100.4 and also tachycardic with a heart rate in 100's. Source of infection seems to be UTI, though HCAP cannot be ruled out. X-ray and CT of the chest shows bilateral pleural effusions left larger than right associated with infiltrate/atelectasis. He has multiple skin ulcers including his sacral area and his bilateral ankles. Patient received 3 L normal saline bolus with improvement in blood pressure. Levophed ordered. I have started patient on stress dose steroids as he was receiving prednisone at the skilled nursing . Patient received Zosyn in the ED. I will place patient on cefepime, Flagyl (hx of C Diff) and IV vancomycin. Infectious disease consulted for septic shock in an immunocompromised patient. 11/13 Patient is on 35% VM, afebrile. Off Levophed 11/14 Patient was started on Cardizem drip 15mg/hr overnight in addition was given Lopressor 2.5mg IV x1 for tachycardia. Afebrile. On Heparin drip. s/p transfusion 1u PRBC for Hgb 6.9 now 8.1. 11/15 Patient is on Neosyn 40 mics, off vasopressin. He was given Amiodarone bolus overnight for Afib with RVR HR remains 120-130's. Afebrile. 11/16: Remains on Cardizem and amiodarone. Off vasopressors. Patient's CXR appears worse. He does not appear in distress. Palliative care consulted and family and patient will decide on hospice after d/w Dr. Monteiro 11/17: Bedside ultrasound shows fairly large left pleural effusion despite chest tube. Possibly loculated. We'll hold off thoracentesis to additional chest tube and the patient makes decisions about comfort measures versus aggressive care. Patient waiting to talk to Dr. Monteiro to decide on hospice 11/18: Patient declined hospice and wants to continue aggressive care at this time. White count has increased to 48.9 with 97% neutrophils, I have requested ID reevaluation. Large right pleural effusion drained today 1.2 L clear fluid. UO 4L in 24 hours 11/19/16: Patient had right thoracentesis yesterday 11/18 with 1.2 L pleural fluid removed. A new left pigtail chest tube was placed also yesterday 11/18 with 580 mL of slightly blood-tinged pleural fluid removal over 24 hours. Patient now on nasal cannula tolerating well. Left 32 [place] chest tube was removed today 11/20: Breathing more comfortably now. Large bore chest tube removed yesterday. No pneumothorax. WBC count slightly improved from 45.5 to 42.5 11/21 No acute events overnight. Patient is lying in bed in NAD. Afebrile. WBC 43 Objective Vital Signs Date Time Temp Pulse Resp B/P Pulse Ox O2 Delivery O2 Flow Rate FiO2 11/21/16 07:44 99 Nasal Cannula 2.00 11/21/16 06:00 92 11/21/16 04:00 98.9 21 124/80 Intake and Output 11/20/16 11/20/16 11/21/16 08:00 16:00 00:00 Intake Total 358 ml 783 ml 560 ml Output Total 570 ml 1445 ml 1550 ml Balance -212 ml -662 ml -990 ml Result Diagram: 11/21/16 0530 11/21/16 0530 Other Results Laboratory Tests Test 11/20/16 11/20/16 11/21/16 12:00 17:45 05:30 Activated Partial 72.0 SEC Thromboplast Time Potassium Level 2.7 MEQ/L 3.8 MEQ/L 2.9 MEQ/L White Blood Count 41.4 TH/MM3 43.0 TH/MM3 Red Blood Count 3.31 MIL/MM3 3.20 MIL/MM3 Hemoglobin 9.4 GM/DL 9.2 GM/DL Hematocrit 29.2 % 28.0 % Mean Corpuscular Volume 88.1 FL 87.6 FL Mean Corpuscular Hemoglobin 28.3 PG 28.6 PG Mean Corpuscular Hemoglobin 32.1 % 32.7 % Concent Red Cell Distribution Width 19.1 % 19.0 % Platelet Count 301 TH/MM3 302 TH/MM3 Mean Platelet Volume 7.0 FL 7.1 FL Neutrophils (%) (Auto) 96.3 % 95.0 % Lymphocytes (%) (Auto) 0.6 % 0.9 % Monocytes (%) (Auto) 2.7 % 4.0 % Eosinophils (%) (Auto) 0.0 % 0.0 % Basophils (%) (Auto) 0.4 % 0.1 % Neutrophils # (Auto) 39.8 TH/MM3 40.8 TH/MM3 Lymphocytes # (Auto) 0.2 TH/MM3 0.4 TH/MM3 Monocytes # (Auto) 1.1 TH/MM3 1.7 TH/MM3 Eosinophils # (Auto) 0.0 TH/MM3 0.0 TH/MM3 Basophils # (Auto) 0.1 TH/MM3 0.0 TH/MM3 CBC Comment AUTO DIFF AUTO DIFF Differential Total Cells 100 100 Counted Neutrophils % (Manual) 97 % 85 % Lymphocytes % 1 % 4 % Neutrophils # (Manual) 41.0 TH/MM3 40.0 TH/MM3 Myelocytes 2 % 1 % Differential Comment FINAL DIFF FINAL DIFF MANUAL MANUAL Platelet Estimate NORMAL NORMAL Platelet Morphology Comment NORMAL NORMAL Ovalocytes 1+ Sodium Level 140 MEQ/L 141 MEQ/L Chloride Level 104 MEQ/L 103 MEQ/L Carbon Dioxide Level 28.2 MEQ/L 29.3 MEQ/L Anion Gap 8 MEQ/L 9 MEQ/L Blood Urea Nitrogen 12 MG/DL 14 MG/DL Creatinine 0.45 MG/DL 0.50 MG/DL Estimat Glomerular Filtration 187 ML/MIN 166 ML/MIN Rate Random Glucose 103 MG/DL 118 MG/DL Calcium Level 7.2 MG/DL 7.3 MG/DL Protein Corrected Calcium 8.3 MG/DL 8.6 MG/DL Magnesium Level 1.3 MG/DL 1.1 MG/DL Total Bilirubin 0.4 MG/DL 0.4 MG/DL Aspartate Amino Transf 9 U/L 5 U/L (AST/SGOT) Alanine Aminotransferase LESS THAN 6 U/L LESS THAN 6 U/L (ALT/SGPT) Alkaline Phosphatase 84 U/L 77 U/L Total Protein 5.0 GM/DL 4.8 GM/DL Albumin 2.2 GM/DL 2.1 GM/DL Band Neutrophils % 6 % Monocytes % 3 % Metamyelocytes 1 % Keratocytes OCC Imaging Last Impressions Chest X-Ray 11/21/16 0600 Signed Impressions: Service Date/Time: Monday, November 21, 2016 05:25 - CONCLUSION: 1. Small caliber left chest tube without significant pneumothorax. Left central line tip in superior vena cava. Stable bilateral airspace disease over the last day. Cj Crouch MD Chest CT 11/12/16 0000 Signed Impressions: Service Date/Time: Saturday, November 12, 2016 11:23 - CONCLUSION: 1. Bilateral pleural effusions left greater than right. Bilateral dependent parenchymal lung opacity indicating atelectasis. 2. Decrease in size of right hilar and mediastinal mass/enlarged lymph nodes. Prashant Valdez MD Objective Remarks GENERAL: Patient is lying in be din NAD SKIN: Warm and dry. HEAD: Normocephalic. EYES: No scleral icterus. No injection or drainage. NECK: Supple, trachea midline. No JVD or lymphadenopathy. CARDIOVASCULAR: Regular rate and rhythm without murmurs, gallops, or rubs. RESPIRATORY: Breath sounds equal bilaterally. No accessory muscle use. GASTROINTESTINAL: Abdomen soft, non-tender, nondistended. MUSCULOSKELETAL: No cyanosis, or edema. BACK: Nontender without obvious deformity. No CVA tenderness. Neuro: Awake and alert A/P Assessment and Plan NEURO: Acute metabolic encephalopathy-resolved Previous CVA -Minimize sedation, monitor neuro status closely. Awake and alert RESP: Respiratory insufficiency Bilateral pleural effusion Possible HCAP COPD Adenocarcinoma of the lung History of pulmonary embolus -Continue with oxygen keep sat >92% -DuoNeb every 6 hours scheduled and when necessary -At home on chronic prednisone, decrease Solucortef 50 mg q 12 -s/p 32F CT placement 11/12 for left pleural effusion-Exudative effusion per LDH criteria. Removed 11/19/16 -Status post right thoracentesis with 1.2L fluid removed, appears transudative -Status post left pigtail catheter placement for drainage of lower pleural effusion-on 11/18/16. CV: Acute on chronic systolic heart failure Ischemic cardiomyopathy Afib with RVR Hypotension Coronary artery disease Status post STEMI 07/08/16 with PCI/DELMY to D1 Monitor HR and BP keep MAP>65mmHg Amiodarone 400 mg daily and metoprolol 12.5 mg by mouth twice a day EF 30-35%, no RWMA Continue Plavix GI: Diarrhea History C. difficile colitis - On PO diet - On IV IV Protonix : -Monitor renal function, I/O's, electrolytes replacement per protocol -Will need K replacement today ID: Staph aureus Bacteremia Severe sepsis with worsening leukocytosis UTI Possible HCAP History of C. difficile colitis -Continue with abx per ID- Dr. Fabien Michel. Continue IV Vancomycin, Cefepime IV, Micafungin IV and Flagyl PO -monitor for signs of infections ( Fever, WBC) follow up on BC -BC 11/13: 1/2 . S Aureus -BC 11/12 : Staph Aureus -Urine cx 11/12: Proteus Mirabilis, staph species -Strep pneumonia and Legionella urinary Ag negative -Fluid cx 11/12: NGTD HEME: Non-small cell lung cancer Pulmonary embolism diagnosed on 07/08/16 -Monitor CBC, -Had been started on chemoradiation therapy Dr. Monteiro -Heme onc is following- Dr. Monteiro -On Lovenox 60 mg q12 ENDO: -Electrolyte replacement protocol, sliding scale insulin for glycemic control PROPH: -Bilateral lower extremity SCDs. On Lovenox 60 mg subcutaneous every 12, IV Protonix LINES: -Utilize peripheral IVs, Left subclavian CVP placed 11/12-DC after establishing PIV Level 3 PT/OT Jimmy Fernandes MD Nov 21, 2016 10:17
--- NOTE | 2016-11-21 10:19 | HHI.IDPN ---
Subjective Subjective Remarks is a 65 y/o CM who looks older than stated age. His PMHx is significant for COPD, pulmonary embolism, non-small cell lung cancer diagnosis adenocarcinoma along with the mediastinal mass status post chemotherapy as well as radiation therapy who follows with Dr. Rj Monteiro. Patient was recently admitted on July 08, 2016 for chest pain diagnosed with ST elevation [place] status post PCI and DELMY by Dr. Crouch cardiology. Patient also was admitted between July 08 to August 31, 2016 and underwent evaluation with diagnosis of non-small cell adenoca lung cancer. At that time was noted to have a lung mass which was invading bilateral mainstem bronchi this was diagnosed to be adenocarcinoma non-small cell lung cancer. He had complete atelectasis of the right lung which required bronchoscopy 2. Patient also underwent chemoradiation therapy and the obstruction was resolved reportedly. Notes reviewed Temps ok WBC slightly down 43K One BC 11/13 with MSSA Has been on Rx for MSSA Bacteremia and Proteus/MSSA UTI His pleural fluid C/S L is negative Has central line place 11/12 No diarrhea UO ok Awake and responsive. Antibiotics Cefepime Flagyl Micafungin Vancomycin Lines Line sites with no e/o infection Past Medical History reviewed Allergies: Coded Allergies: No Known Allergies (Unverified , 07/08/16) Objective . Vital Signs Date Time Temp Pulse Resp B/P Pulse Ox O2 Delivery O2 Flow Rate FiO2 11/21/16 07:44 99 Nasal Cannula 2.00 11/21/16 06:00 92 11/21/16 04:00 97 Nasal Cannula 2.00 11/21/16 04:00 89 11/21/16 04:00 98.9 89 21 124/80 97 11/21/16 02:00 86 11/21/16 00:00 93 Nasal Cannula 2.00 11/21/16 00:00 99.1 85 21 105/64 93 11/21/16 00:00 85 11/20/16 22:00 82 11/20/16 20:00 92 11/20/16 20:00 99.0 93 21 124/74 92 11/20/16 20:00 92 Nasal Cannula 2.00 11/20/16 19:52 92 Nasal Cannula 2.00 11/20/16 18:00 95 11/20/16 16:00 88 11/20/16 16:00 98 Nasal Cannula 1.50 11/20/16 16:00 98.6 88 18 135/80 98 11/20/16 14:00 88 11/20/16 12:00 98.3 97 22 112/76 97 11/20/16 12:00 97 Nasal Cannula 1.50 11/20/16 12:00 87 11/20/16 11:22 99 Nasal Cannula 2.00 11/20/16 11/20/16 11/21/16 15:00 23:00 07:00 Intake Total 783 ml 560 ml 580 ml Output Total 1445 ml 1550 ml 1150 ml Balance -662 ml -990 ml -570 ml Intake Oral 120 ml 480 ml IV Total 663 ml 560 ml 100 ml Output Urine Total 1425 ml 1500 ml 1150 ml Chest Tube Drainage Total 20 ml 50 ml # Bowel Movements 1 1 . Laboratory Tests Test 11/20/16 11/20/16 11/21/16 04:00 17:45 05:30 White Blood Count 42.5 TH/MM3 41.4 TH/MM3 43.0 TH/MM3 Red Blood Count 3.14 MIL/MM3 3.31 MIL/MM3 3.20 MIL/MM3 Hemoglobin 9.1 GM/DL 9.4 GM/DL 9.2 GM/DL Hematocrit 27.7 % 29.2 % 28.0 % Mean Corpuscular Volume 88.0 FL 88.1 FL 87.6 FL Mean Corpuscular Hemoglobin 28.8 PG 28.3 PG 28.6 PG Mean Corpuscular Hemoglobin 32.7 % 32.1 % 32.7 % Concent Red Cell Distribution Width 18.9 % 19.1 % 19.0 % Platelet Count 275 TH/MM3 301 TH/MM3 302 TH/MM3 Mean Platelet Volume 6.7 FL 7.0 FL 7.1 FL Neutrophils (%) (Auto) 95.2 % 96.3 % 95.0 % Lymphocytes (%) (Auto) 0.8 % 0.6 % 0.9 % Monocytes (%) (Auto) 3.1 % 2.7 % 4.0 % Eosinophils (%) (Auto) 0.0 % 0.0 % 0.0 % Basophils (%) (Auto) 0.9 % 0.4 % 0.1 % Neutrophils # (Auto) 40.4 TH/MM3 39.8 TH/MM3 40.8 TH/MM3 Lymphocytes # (Auto) 0.3 TH/MM3 0.2 TH/MM3 0.4 TH/MM3 Monocytes # (Auto) 1.3 TH/MM3 1.1 TH/MM3 1.7 TH/MM3 Eosinophils # (Auto) 0.0 TH/MM3 0.0 TH/MM3 0.0 TH/MM3 Basophils # (Auto) 0.4 TH/MM3 0.1 TH/MM3 0.0 TH/MM3 CBC Comment AUTO DIFF AUTO DIFF AUTO DIFF Differential Total Cells 100 100 100 Counted Neutrophils % (Manual) 83 % 97 % 85 % Band Neutrophils % 12 % 6 % Monocytes % 2 % 3 % Neutrophils # (Manual) 41.7 TH/MM3 41.0 TH/MM3 40.0 TH/MM3 Metamyelocytes 1 % 1 % Myelocytes 2 % 2 % 1 % Differential Comment FINAL DIFF FINAL DIFF FINAL DIFF MANUAL MANUAL MANUAL Platelet Estimate NORMAL NORMAL NORMAL Platelet Morphology Comment NORMAL NORMAL NORMAL Helmet Cells OCC Acanthocytes OCC Lymphocytes % 1 % 4 % Ovalocytes 1+ Keratocytes OCC Laboratory Tests Test 11/19/16 11/20/16 11/20/16 11/20/16 14:55 04:00 12:00 17:45 Sodium Level 140 MEQ/L 143 MEQ/L 140 MEQ/L Potassium Level 2.7 MEQ/L 3.4 MEQ/L 2.7 MEQ/L 3.8 MEQ/L Chloride Level 104 MEQ/L 107 MEQ/L 104 MEQ/L Carbon Dioxide Level 26.8 MEQ/L 27.3 MEQ/L 28.2 MEQ/L Anion Gap 9 MEQ/L 9 MEQ/L 8 MEQ/L Blood Urea Nitrogen 14 MG/DL 14 MG/DL 12 MG/DL Creatinine 0.47 MG/DL 0.47 MG/DL 0.45 MG/DL Estimat Glomerular Filtration 178 ML/MIN 178 ML/MIN 187 ML/MIN Rate Random Glucose 180 MG/DL 133 MG/DL 103 MG/DL Calcium Level 7.3 MG/DL 7.3 MG/DL 7.2 MG/DL Protein Corrected Calcium 8.7 MG/DL 8.6 MG/DL 8.3 MG/DL Total Bilirubin 0.3 MG/DL 0.4 MG/DL 0.4 MG/DL Aspartate Amino Transf 9 U/L 6 U/L 9 U/L (AST/SGOT) Alanine Aminotransferase LESS THAN 6 U/L LESS THAN 6 U/L LESS THAN 6 U/L (ALT/SGPT) Alkaline Phosphatase 97 U/L 80 U/L 84 U/L Total Protein 4.6 GM/DL 4.8 GM/DL 5.0 GM/DL Albumin 2.0 GM/DL 2.2 GM/DL 2.2 GM/DL Magnesium Level 1.4 MG/DL 1.3 MG/DL Test 11/21/16 05:30 Sodium Level 141 MEQ/L Potassium Level 2.9 MEQ/L Chloride Level 103 MEQ/L Carbon Dioxide Level 29.3 MEQ/L Anion Gap 9 MEQ/L Blood Urea Nitrogen 14 MG/DL Creatinine 0.50 MG/DL Estimat Glomerular Filtration 166 ML/MIN Rate Random Glucose 118 MG/DL Calcium Level 7.3 MG/DL Protein Corrected Calcium 8.6 MG/DL Magnesium Level 1.1 MG/DL Total Bilirubin 0.4 MG/DL Aspartate Amino Transf 5 U/L (AST/SGOT) Alanine Aminotransferase LESS THAN 6 U/L (ALT/SGPT) Alkaline Phosphatase 77 U/L Total Protein 4.8 GM/DL Albumin 2.1 GM/DL Microbiology Date/Time Procedure Status Source Growth 11/18/16 10:40 Gram Stain - Final Complete Fluid Pleural Fluid 11/18/16 10:40 Body Fluid Culture - Final Complete Fluid Pleural Fluid NO GROWTH IN 72 HRS.--AEROBICALLY OR ... 11/18/16 10:40 Acid Fast Stain Received Fluid Pleural Fluid Pending 11/18/16 10:40 Mycobacterial Culture Received Fluid Pleural Fluid Pending 11/18/16 10:40 Fungal Smear - Final Resulted Fluid Pleural Fluid NO FUNGAL ELEMENTS SEEN. 11/18/16 10:40 Fungal Culture Resulted Fluid Pleural Fluid Pending 11/19/16 08:00 Gram Stain - Final Resulted Fluid Pleural Fluid 11/19/16 08:00 Body Fluid Culture - Preliminary Resulted Fluid Pleural Fluid NO GROWTH IN 48 HOURS. 11/19/16 08:00 Acid Fast Stain Received Fluid Pleural Fluid Pending 11/19/16 08:00 Mycobacterial Culture Received Fluid Pleural Fluid Pending 11/19/16 08:00 Fungal Smear - Final Resulted Fluid Pleural Fluid NO FUNGAL ELEMENTS SEEN. 11/19/16 08:00 Fungal Culture Resulted Fluid Pleural Fluid Pending Imaging Chest X-Ray 11/18/16 0600 Signed Impressions: Service Date/Time: Friday, November 18, 2016 03:34 - CONCLUSION: Bilateral effusions and consolidation are again seen right greater than left. Left subclavian line and left-sided chest tube are present. I do not see a pneumothorax. Heart size normal. Jan Arias MD Chest CT 11/12/16 0000 Signed Impressions: Service Date/Time: Saturday, November 12, 2016 11:23 - CONCLUSION: 1. Bilateral pleural effusions left greater than right. Bilateral dependent parenchymal lung opacity indicating atelectasis. 2. Decrease in size of right hilar and mediastinal mass/enlarged lymph nodes. Prashant Valdez MD Chest X-Ray 11/12/16 0908 Signed Impressions: Service Date/Time: Saturday, November 12, 2016 09:30 - CONCLUSION: Left greater than right pleural effusions. Bilateral patchy parenchymal opacity in the right lung apex and left perihilar region. Prashant Valdez MD Chest CT 11/12/16 0000 Signed Impressions: Service Date/Time: Saturday, November 12, 2016 11:23 - CONCLUSION: 1. Bilateral pleural effusions left greater than right. Bilateral dependent parenchymal lung opacity indicating atelectasis. 2. Decrease in size of right hilar and mediastinal mass/enlarged lymph nodes. Prashant Valdez MD Physical Exam GENERAL: NAD. Awake and alert SKIN: Dry skin, warm. No generalized rash. No emboli HEENT: Pale conjunctiva, no petechia or hemorrhage. No scleral icterus. Dry oral mucosa. NECK: Trachea midline. Supple, nontender, no meningeal signs. CARDIOVASCULAR: Heart sounds audible. No murmur appreciated. RESPIRATORY: Breath sounds decreased at both bases. One CT on L side. GASTROINTESTINAL: Abdomen soft, non-tender, nondistended. BS (+) MUSCULOSKELETAL: Mild pedal edema. No joint effusions. NEUROLOGICAL: Alert and oriented. Psych Calm and cooperative IV line sites with no evidence of infection. : Noble in place, with some sediment Assessment & Plan Remarks Septic shock present on admission. MSSA bacteremia MSSA in urine : ? translocation. Proteus UTI, catheter related Prior h.o cdiff. - no diarrhea currently Bilateral pleural effusions - has had jonnie tap, has 2 CT on L Acute anemia: Blood loss query GI versus other site. Acute respiratory failure. Mild abnormal LFTs: ? sepsis related Acute metabolic encephalopathy: Likely infection related. Immune compromised host. Non-small cell adenocarcinoma of the lung with obstruction and mediastinal mass. Worsening leukocytosis - ?new infection Recs: Delayed positive blood culture from 11/13. Repeat Blood cultures : 1 from periphery and 1 from CL. Continue IV Vancomycin (target 15-20) ? new CL associated BSI. Continue Cefepime IV Continue Micafungin IV (new BSI workup ongoing, will deescalate) Continue Flagyl PO Follow CBC Monitor progress Will follow 2D ECHO negative. Not a good candidate for RUDY. d/w and . Melba Michel MD Nov 21, 2016 10:19
[2016-11-21] MEDS ORDERED: PILL SPLITTER OTHER PRN (11:00)
--- NOTE | 2016-11-21 12:07 | PD.ONC.PN ---
Subjective Subjective Remarks Afebrile overnight. Patient had a hard time sleeping last night. It was noisy in [facility] [place] and he is tired today. Objective Data Date Time Temp Pulse Resp B/P Pulse Ox O2 Delivery O2 Flow Rate FiO2 11/21/16 07:44 99 Nasal Cannula 2.00 11/21/16 06:00 92 11/21/16 04:00 97 Nasal Cannula 2.00 11/21/16 04:00 89 11/21/16 04:00 98.9 89 21 124/80 97 11/21/16 02:00 86 11/21/16 00:00 93 Nasal Cannula 2.00 11/21/16 00:00 99.1 85 21 105/64 93 11/21/16 00:00 85 11/20/16 22:00 82 11/20/16 20:00 92 11/20/16 20:00 99.0 93 21 124/74 92 11/20/16 20:00 92 Nasal Cannula 2.00 11/20/16 19:52 92 Nasal Cannula 2.00 11/20/16 18:00 95 11/20/16 16:00 88 11/20/16 16:00 98 Nasal Cannula 1.50 11/20/16 16:00 98.6 88 18 135/80 98 11/20/16 14:00 88 11/21/16 11/21/16 11/21/16 07:00 15:00 23:00 Intake Total 580 ml Output Total 1150 ml Balance -570 ml Result Diagram: 11/21/16 0530 11/21/16 0530 Laboratory Results Laboratory Tests Test 11/20/16 11/21/16 17:45 05:30 White Blood Count 41.4 TH/MM3 43.0 TH/MM3 Red Blood Count 3.31 MIL/MM3 3.20 MIL/MM3 Hemoglobin 9.4 GM/DL 9.2 GM/DL Hematocrit 29.2 % 28.0 % Mean Corpuscular Volume 88.1 FL 87.6 FL Mean Corpuscular Hemoglobin 28.3 PG 28.6 PG Mean Corpuscular Hemoglobin 32.1 % 32.7 % Concent Red Cell Distribution Width 19.1 % 19.0 % Platelet Count 301 TH/MM3 302 TH/MM3 Mean Platelet Volume 7.0 FL 7.1 FL Neutrophils (%) (Auto) 96.3 % 95.0 % Lymphocytes (%) (Auto) 0.6 % 0.9 % Monocytes (%) (Auto) 2.7 % 4.0 % Eosinophils (%) (Auto) 0.0 % 0.0 % Basophils (%) (Auto) 0.4 % 0.1 % Neutrophils # (Auto) 39.8 TH/MM3 40.8 TH/MM3 Lymphocytes # (Auto) 0.2 TH/MM3 0.4 TH/MM3 Monocytes # (Auto) 1.1 TH/MM3 1.7 TH/MM3 Eosinophils # (Auto) 0.0 TH/MM3 0.0 TH/MM3 Basophils # (Auto) 0.1 TH/MM3 0.0 TH/MM3 CBC Comment AUTO DIFF AUTO DIFF Differential Total Cells 100 100 Counted Neutrophils % (Manual) 97 % 85 % Lymphocytes % 1 % 4 % Neutrophils # (Manual) 41.0 TH/MM3 40.0 TH/MM3 Myelocytes 2 % 1 % Differential Comment FINAL DIFF FINAL DIFF MANUAL MANUAL Platelet Estimate NORMAL NORMAL Platelet Morphology Comment NORMAL NORMAL Ovalocytes 1+ Sodium Level 140 MEQ/L 141 MEQ/L Potassium Level 3.8 MEQ/L 2.9 MEQ/L Chloride Level 104 MEQ/L 103 MEQ/L Carbon Dioxide Level 28.2 MEQ/L 29.3 MEQ/L Anion Gap 8 MEQ/L 9 MEQ/L Blood Urea Nitrogen 12 MG/DL 14 MG/DL Creatinine 0.45 MG/DL 0.50 MG/DL Estimat Glomerular Filtration 187 ML/MIN 166 ML/MIN Rate Random Glucose 103 MG/DL 118 MG/DL Calcium Level 7.2 MG/DL 7.3 MG/DL Protein Corrected Calcium 8.3 MG/DL 8.6 MG/DL Magnesium Level 1.3 MG/DL 1.1 MG/DL Total Bilirubin 0.4 MG/DL 0.4 MG/DL Aspartate Amino Transf 9 U/L 5 U/L (AST/SGOT) Alanine Aminotransferase LESS THAN 6 U/L LESS THAN 6 U/L (ALT/SGPT) Alkaline Phosphatase 84 U/L 77 U/L Total Protein 5.0 GM/DL 4.8 GM/DL Albumin 2.2 GM/DL 2.1 GM/DL Band Neutrophils % 6 % Monocytes % 3 % Metamyelocytes 1 % Keratocytes OCC Culture Results Microbiology Date/Time Procedure Status Source Growth 11/19/16 08:00 Gram Stain - Final Resulted Fluid Pleural Fluid 11/19/16 08:00 Body Fluid Culture - Preliminary Resulted Fluid Pleural Fluid NO GROWTH IN 48 HOURS. 11/19/16 08:00 Acid Fast Stain Received Fluid Pleural Fluid Pending 11/19/16 08:00 Mycobacterial Culture Received Fluid Pleural Fluid Pending 11/19/16 08:00 Fungal Smear - Final Resulted Fluid Pleural Fluid NO FUNGAL ELEMENTS SEEN. 11/19/16 08:00 Fungal Culture Resulted Fluid Pleural Fluid Pending Imaging Studies Last 24 hours Impressions Chest X-Ray 11/21/16 0600 Signed Impressions: Service Date/Time: Monday, November 21, 2016 05:25 - CONCLUSION: 1. Small caliber left chest tube without significant pneumothorax. Left central line tip in superior vena cava. Stable bilateral airspace disease over the last day. Cj rCouch MD Administered Medications Medications (Trade) Dose Ordered Sig/Elvia Route PRN Reason Start Time Stop Time Status Last Admin Dose Admin IV Flush (NS Flush) 2 ml UNSCH PRN IV FLUSH FLUSH AFTER USING IV ACCESS 11/12/16 11:00 11/19/16 09:00 IV Flush (NS Flush) 2 ml BID IV FLUSH 11/12/16 21:00 11/21/16 10:16 Acetaminophen (Tylenol) 650 mg Q6H PRN PO PAIN 1-10 AND/OR FEVER >101F 11/12/16 12:00 11/13/16 21:07 Pantoprazole Sodium (Protonix Inj) 40 mg DAILY IV 11/13/16 09:00 11/21/16 10:15 Tiotropium [place] (Spiriva Inh) 18 mcg DAILY INH 11/13/16 09:00 11/21/16 10:16 Clopidogrel Bisulfate 75 mg 75 mg DAILY PO 11/13/16 09:00 Hold 11/17/16 10:08 Norepinephrine Bitartrate (Levophed-Dextrose Drip) 250 ml @ 0 mls/hr TITRATE IV 11/12/16 13:30 11/12/16 18:48 Miscellaneous Information Patient in critical care unit? Ass... [id number] XX 11/12/16 18:30 11/12/16 18:30 Potassium Chloride 100 ml @ 50 mls/hr Q2H PRN IV For Potassium 2.8 - 3.2 mEq/L 11/13/16 09:45 11/20/16 16:47 Potassium Chloride 100 ml @ 50 mls/hr Q2H PRN IV For Potassium 2.8 - 3.2 mEq/L 11/13/16 09:45 11/19/16 05:02 Potassium Chloride 100 ml @ 50 mls/hr Q2H PRN IV For Potassium 3.3 - 3.5 mEq/L 11/13/16 09:45 11/20/16 06:26 Magnesium Sulfate 4 gm/Sodium Chloride 100 ml @ 50 mls/hr UNSCH PRN IV For Magnesium 0.9 - 1.1 mg/dL 11/13/16 09:45 11/19/16 09:02 Magnesium Sulfate 2 gm/Sodium Chloride 100 ml @ 50 mls/hr UNSCH PRN IV For Magnesium 1.2 - 1.6 mg/dL 11/13/16 09:45 11/15/16 16:59 Sodium Phosphate 30 mmol/Sodium Chloride 250 ml @ 42 mls/hr UNSCH PRN IV For Phosphorus < 2.5 mg/dL 11/13/16 09:45 11/15/16 16:59 Potassium Phosphate/Sodium Chloride (Potassium Phosphate Inj/NS 250 ml Inj) 260 ml @ 42 mls/hr UNSCH PRN IV SEE LABEL COMMENTS 11/13/16 09:45 11/13/16 13:05 Insulin Human Regular (NovoLIN R SUPPLEMENTAL SCALE) 1 Q6H SQ 11/13/16 10:15 11/20/16 21:24 Metronidazole 500 mg 500 mg Q8HR PO 11/14/16 14:00 11/21/16 04:21 Phenylephrine HCl/ Dextrose (Neosynephrine Inj/D5W 500 ml Inj) 500 ml @ 0 mls/hr TITRATE IV 11/14/16 17:15 11/15/16 12:54 Temazepam (Restoril) 7.5 mg HS PRN PO SLEEP 11/15/16 22:45 11/20/16 21:13 Aspirin (Ecotrin Ec) 81 mg DAILY PO 11/16/16 09:00 Hold 11/17/16 09:00 Furosemide (Lasix Inj) 40 mg Q12H IV PUSH 11/17/16 21:00 11/21/16 10:15 Amiodarone HCl (Cordarone) 400 mg DAILY PO 11/18/16 10:30 11/21/16 10:15 Metoprolol Tartrate (Lopressor) 12.5 mg Q12HR PO 11/18/16 10:30 11/21/16 10:15 Potassium Chloride 30 meq 30 meq DAILY PO 11/18/16 12:00 11/21/16 10:16 Vasopressin 40 units/Dextrose 100 ml @ 0 mls/hr Q0M IV 11/18/16 14:45 11/18/16 14:59 Cefepime HCl 2000 mg/Sodium Chloride 100 ml @ 200 mls/hr Q12H IV 11/18/16 18:00 11/21/16 04:21 Micafungin Sodium 100 mg/Sodium Chloride 100 ml @ 100 mls/hr Q24H IV 11/18/16 17:00 11/20/16 16:47 Vancomycin HCl/ Sodium Chloride (Vancomycin Inj/ NS 500 ml Inj) 515 ml @ 250 mls/hr Q12H IV 11/18/16 18:00 Hold 11/20/16 06:24 Enalapril Maleate (Vasotec) 2.5 mg DAILY PO 11/20/16 09:00 11/21/16 10:15 Enoxaparin Sodium 60 mg 60 mg Q12H SQ 11/20/16 16:00 11/21/16 04:20 Potassium Chloride/Sodium Chloride (NS + KCl 40 Meq Inj) 1,000 ml @ 100 mls/hr Q10H IV 11/21/16 08:00 11/21/16 10:14 Objective Remarks GENERAL: Weak elderly male, supine in bed. SKIN: Warm and dry. ecchymoses noted on bilateral arms HEAD: Normocephalic. EYES: No scleral icterus. No injection or drainage. NECK: Supple, trachea midline. CARDIOVASCULAR: +S1/S2 RESPIRATORY: Breath sounds equal bilaterally. No accessory muscle use. GASTROINTESTINAL: Abdomen soft, non-tender, nondistended. EXTREMITIES: No cyanosis. bilateral lower extremities in heel protectors NEUROLOGICAL: awake but fatigued. normal speech. Assessment/Plan Problem List: (1) Septic shock Status: Acute Plan: --on IV abx --BC, 11/13 +S. Aureus --CT chest showed bilateral pleural effusions, left greater than right. 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 --was some improvement of his tumor bulk with concurrent chemotherapy and radiation. (3) Pleural effusion Status: Acute Plan: --s/p pigtail chest tube placement, 11/18, cytology pending --could be cardiac vs malignant -- If the effusions are malignant, then he will have Stage IV disease. (4) Normocytic anemia Status: Acute Plan: -- recommend keeping his hemoglobin greater than 8. (5) Afib Status: Chronic Plan: --on Lovenox 60mg SQ BID --cardiology following. --on Amiodarone + Lopressor Assessment 65y/o with NSCLC admitted with sepsis. h/o tobacco abuse. COPD. Hypertension. Hyperlipidemia. 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 Pulmonary embolism. Peripheral vascular disease status post revascularization of the lower extremities. History of coronary artery disease/[place], status post cardiac catheterization with PCI and drug eluding stent. Plan 1. continue supportive care 2. continue abx 3. monitor CBC 4. await cytology from thoracentesis Attending Statement The exam, history, and the medical decision-making described in the above note were completed with the assistance of the mid-level provider. I reviewed and agree with the findings presented. I attest that I had a [id number] encounter with the patient on the same day, and personally performed and documented my assessment and findings in the medical record. Remains very weak. Leukocytosis improving. anemia stable. Replace electrolytes. ongoing supportive care. Lizbeth Cameron Nov 21, 2016 12:06 Rj Monteiro MD Nov 21, 2016 23:50
[2016-11-21] MEDS: POTASSIUM CHLOR 20 MEQ PREMIX 100 ML IV PRN ×4 (12:30→12:42)
--- NOTE | 2016-11-21 13:21 | PD.CARD.PN ---
Subjective Subjective Remarks Feels "OK". Denies dyspnea, CP, dizziness, palpitations, PND. Slept well. Objective Medications Item Value Date Time Potassium 1,000 ml @ 100 mls/hr 11/21/16 0800 Chloride/Sodium Q10H/IV 11/21/16 1014 Chloride Enoxaparin Sodium 60 mg 11/20/16 1600 (Lovenox Inj) Q12H/SQ 11/21/16 0420 Enalapril Maleate 2.5 mg 11/20/16 0900 (Vasotec) DAILY/PO Potassium Chloride 30 meq 11/18/16 1200 (KCl) DAILY/PO 11/21/16 1016 Amiodarone HCl 400 mg 11/18/16 1030 (Cordarone) DAILY/PO 11/21/16 1015 Metoprolol 12.5 mg 11/18/16 1030 Tartrate Q12HR/PO (Lopressor) Furosemide 40 mg 11/17/16 2100 (Lasix Inj) Q12H/IV PUSH 11/21/16 1015 Vital Signs / I&O Vital Signs Date Time Temp Pulse Resp B/P Pulse Ox O2 Delivery O2 Flow Rate FiO2 11/21/16 07:44 99 Nasal Cannula 2.00 11/21/16 06:00 92 11/21/16 04:00 97 Nasal Cannula 2.00 11/21/16 04:00 89 11/21/16 04:00 98.9 89 21 124/80 97 11/21/16 02:00 86 11/21/16 00:00 93 Nasal Cannula 2.00 11/21/16 00:00 99.1 85 21 105/64 93 11/21/16 00:00 85 11/20/16 22:00 82 11/20/16 20:00 92 11/20/16 20:00 99.0 93 21 124/74 92 11/20/16 20:00 92 Nasal Cannula 2.00 11/20/16 19:52 92 Nasal Cannula 2.00 11/20/16 18:00 95 11/20/16 16:00 88 11/20/16 16:00 98 Nasal Cannula 1.50 11/20/16 16:00 98.6 88 18 135/80 98 11/20/16 14:00 88 I/O 11/20/16 11/20/16 11/20/16 11/21/1617 2/28/17 07:00 15:00 23:00 07:00 15:00 23:00 Intake Total 358 ml 783 ml 560 ml 580 ml Output Total 570 ml 1445 ml 1550 ml 1150 ml Balance -212 ml -662 ml -990 ml -570 ml Intake Oral 50 ml 120 ml 480 ml IV Total 308 ml 663 ml 560 ml 100 ml Output Urine Total 550 ml 1425 ml 1500 ml 1150 ml Chest Tube Drainage Total 20 ml 20 ml 50 ml # Bowel Movements 0 1 1 Physical Exam GENERAL: Well developed, well nourished. No acute distress. HEENT: Jugular venous pressure is normal. CHEST: Diminished breath sounds diffusely. CARDIAC: Regular rate and rhythm without S3, S4, or murmur. ABDOMEN: Soft, nontender, no hepatosplenomegaly. Bowel sounds present. EXTREMITIES: No clubbing, cyanosis, or edema. Laboratory Laboratory Tests Test 11/20/16 11/21/16 17:45 05:30 White Blood Count 41.4 TH/MM3 43.0 TH/MM3 Red Blood Count 3.31 MIL/MM3 3.20 MIL/MM3 Hemoglobin 9.4 GM/DL 9.2 GM/DL Hematocrit 29.2 % 28.0 % Mean Corpuscular Volume 88.1 FL 87.6 FL Mean Corpuscular Hemoglobin 28.3 PG 28.6 PG Mean Corpuscular Hemoglobin 32.1 % 32.7 % Concent Red Cell Distribution Width 19.1 % 19.0 % Platelet Count 301 TH/MM3 302 TH/MM3 Mean Platelet Volume 7.0 FL 7.1 FL Neutrophils (%) (Auto) 96.3 % 95.0 % Lymphocytes (%) (Auto) 0.6 % 0.9 % Monocytes (%) (Auto) 2.7 % 4.0 % Eosinophils (%) (Auto) 0.0 % 0.0 % Basophils (%) (Auto) 0.4 % 0.1 % Neutrophils # (Auto) 39.8 TH/MM3 40.8 TH/MM3 Lymphocytes # (Auto) 0.2 TH/MM3 0.4 TH/MM3 Monocytes # (Auto) 1.1 TH/MM3 1.7 TH/MM3 Eosinophils # (Auto) 0.0 TH/MM3 0.0 TH/MM3 Basophils # (Auto) 0.1 TH/MM3 0.0 TH/MM3 CBC Comment AUTO DIFF AUTO DIFF Differential Total Cells 100 100 Counted Neutrophils % (Manual) 97 % 85 % Lymphocytes % 1 % 4 % Neutrophils # (Manual) 41.0 TH/MM3 40.0 TH/MM3 Myelocytes 2 % 1 % Differential Comment FINAL DIFF FINAL DIFF MANUAL MANUAL Platelet Estimate NORMAL NORMAL Platelet Morphology Comment NORMAL NORMAL Ovalocytes 1+ Sodium Level 140 MEQ/L 141 MEQ/L Potassium Level 3.8 MEQ/L 2.9 MEQ/L Chloride Level 104 MEQ/L 103 MEQ/L Carbon Dioxide Level 28.2 MEQ/L 29.3 MEQ/L Anion Gap 8 MEQ/L 9 MEQ/L Blood Urea Nitrogen 12 MG/DL 14 MG/DL Creatinine 0.45 MG/DL 0.50 MG/DL Estimat Glomerular Filtration 187 ML/MIN 166 ML/MIN Rate Random Glucose 103 MG/DL 118 MG/DL Calcium Level 7.2 MG/DL 7.3 MG/DL Protein Corrected Calcium 8.3 MG/DL 8.6 MG/DL Magnesium Level 1.3 MG/DL 1.1 MG/DL Total Bilirubin 0.4 MG/DL 0.4 MG/DL Aspartate Amino Transf 9 U/L 5 U/L (AST/SGOT) Alanine Aminotransferase LESS THAN 6 U/L LESS THAN 6 U/L (ALT/SGPT) Alkaline Phosphatase 84 U/L 77 U/L Total Protein 5.0 GM/DL 4.8 GM/DL Albumin 2.2 GM/DL 2.1 GM/DL Band Neutrophils % 6 % Monocytes % 3 % Metamyelocytes 1 % Keratocytes OCC Assessment and Plan Problem List: (1) Paroxysmal atrial fibrillation Assessment and Plan: Remains in NSR. Tolerating medications. Continue oral Amiodarone, metoprolol. With EF now down to about 30% thromboembolic risk at least moderately elevated. Consider starting oral anticoagulation therapy at some point. Rec try to maintain K > 4.0 while on Amiodarone. (2) Dilated cardiomyopathy Assessment and Plan: Echo this admission reviewed. Suspect EF closer to 30% rather than 35-40%. CXR suggestive of CHF. Patient asymptomatic, stable s/p thoracentesis. REC continued diuresis, beta elan, NICHOLAS-I. (3) CAD (coronary artery disease) Assessment and Plan: History of STEMI, stent diagonal 06/2016. Stable. No recurrent angina. Resume Plavix, baby aspirin when possible. Code Status No Code Discussed Condition With patient Problem Qualifiers (1) CAD (coronary artery disease): Qualified Code: I25.10 - Coronary artery disease involving [place] coronary artery of [place] heart without angina pectoris Rene Kaiser MD Nov 21, 2016 13:21
[2016-11-21] MEDS ORDERED: MAGNESIUM SULFATE 1 GM PREMIX 100 ML IV SCH (15:15)
[2016-11-21] MEDS: MICAFUNGIN INJ 100 MG in SODIUM CHLORIDE 0.9% INJ 100 ML IV SCH (17:27)
--- NOTE | 2016-11-21 18:05 | HHI.PR ---
Subjective Remarks He is breathing better. Chest tube still draining on left. O2 sat 95 o 3 l. Objective Vital Signs Date Time Temp Pulse Resp B/P Pulse Ox O2 Delivery O2 Flow Rate FiO2 11/21/16 16:00 98 11/21/16 16:00 98.9 98 21 118/76 98 11/21/16 16:00 98 Nasal Cannula 2.00 11/21/16 14:00 96 11/21/16 12:00 96 Nasal Cannula 2.00 11/21/16 12:00 96 11/21/16 12:00 98.5 96 26 77/57 96 11/21/16 10:00 93 11/21/16 08:00 93 11/21/16 08:00 98.8 93 20 129/79 98 11/21/16 08:00 98 Nasal Cannula 2.00 11/21/16 07:44 99 Nasal Cannula 2.00 11/21/16 06:00 92 11/21/16 04:00 97 Nasal Cannula 2.00 11/21/16 04:00 89 11/21/16 04:00 98.9 89 21 124/80 97 11/21/16 02:00 86 11/21/16 00:00 93 Nasal Cannula 2.00 11/21/16 00:00 99.1 85 21 105/64 93 11/21/16 00:00 85 11/20/16 22:00 82 11/20/16 20:00 92 11/20/16 20:00 99.0 93 21 124/74 92 11/20/16 20:00 92 Nasal Cannula 2.00 11/20/16 19:52 92 Nasal Cannula 2.00 I/O 11/20/16 11/20/16 11/20/16 11/21/16 11/21/16 11/21/16 07:00 15:00 23:00 07:00 15:00 23:00 Intake Total 358 ml 783 ml 560 ml 580 ml 901 ml Output Total 570 ml 1445 ml 1550 ml 1150 ml 1120 ml Balance -212 ml -662 ml -990 ml -570 ml -219 ml Intake Oral 50 ml 120 ml 480 ml 100 ml IV Total 308 ml 663 ml 560 ml 100 ml 801 ml Output Urine Total 550 ml 1425 ml 1500 ml 1150 ml 1100 ml Chest Tube Drainage Total 20 ml 20 ml 50 ml 20 ml # Bowel Movements 0 1 1 2 Result Diagram: 11/21/1630 11/21/1630 Objective Remarks GENERAL: This is a thinly built elderly man who is pale and and appears chronically ill. HEENT: Head normocephalic. Pupils are reactive. Tongue moist. Throat is dry. Nasal mucosa is edematous. NECK: Supple. No bruits or thyroid enlargement. CHEST: Decreased breath sounds at the bases, mostly the right base with crackles at the lung bases. HEART: The heart sounds are irregular, S1 and S2, no murmur, no S3. ABDOMEN: Soft, nontender. No organomegaly. Bowel sounds are active. EXTREMITIES: Decreased peripheral pulses. NEUROLOGIC: Reflexes are 1+. The patient does have weakness of the lower extremities with some muscle wasting. SKIN: Skin ulcerations. MENTAL STATUS: Mentation is normal. The patient is alert and cooperative. Assessment and Plan Assessment and Plan IMPRESSION 1. Chronic right basilar atelectasis with pleural effusion. 2. Adenocarcinoma of the right lung with metastatic disease. 3. Status post chemotherapy and radiation therapy. 4. History of C. diff colitis. 5. History of coronary artery disease. 6. Hypertension. Plan : 1. O2 at 2 L. 2. IS q3h at bedside. 3. Chest tube to Drainage 4. Cont Antibiotics Cefipime /Flagyl/Zithromax 5. Chest X ray in am. 6. Duoneb nebs qid. 7. Will clamp chest tube and Rpt Chest X ray Rubia Lora MD Nov 21, 2016 18:05
[2016-11-21] MEDS: TEMAZEPAM 7.5 MG CAP PO PRN (22:16)
[2016-11-22] VITALS (12 sets, daily range): BP systolic 116–152; BP diastolic 72–88; PULSE 64–86; RESP 14–20; TEMP 97.5–98.3; O2SAT 92–99
[2016-11-22] MEDS: INSULIN NovoLIN REGULAR SUPPLEMENTAL SCALE SQ SCH ×4 (04:15→22:15)
[2016-11-22] MEDS: metroNIDAZOLE 500 MG TAB PO SCH ×3 (05:32→20:43)
[2016-11-22] MEDS: CEFEPIME INJ 2,000 MG in SODIUM CHLORIDE 0.9% INJ 100 ML IV SCH ×2 (05:32→17:01)
[2016-11-22] MEDS: ENOXAPARIN SODIUM 60 MG/0.6 ML SYRINGE SQ SCH ×2 (05:33→16:32)
[2016-11-22] MEDS: NS + KCL 40 MEQ INJ 1,000 ML IV SCH (05:33)
[2016-11-22 05:56] LABS: AUTOMATED NEUTROPHIL # 37.7 TH/MM3 (1.8-7.7); BASOPHIL # 0.2 TH/MM3 (0-0.2); BASOPHIL % 0.5 % (0.0-2.0); HEMATOCRIT 27.6 % (39.0-51.0); LYMPH % 0.8 % (9.0-44.0); LYMPHOCYTE # 0.3 TH/MM3 (1.0-4.8); MEAN CELL VOLUME 88.4 FL (80.0-100.0); MEAN CORPUSCULAR HGB CONC 32.8 % (32.0-36.0); NEUT % 94.7 % (16.0-70.0); PLATELET COUNT 266 TH/MM3 (150-450); RED BLOOD COUNT 3.13 MIL/MM3 (4.50-5.90); RED CELL DISTRIBUTION WIDTH 19.1 % (11.6-17.2); WHITE BLOOD COUNT 39.8 TH/MM3 (4.0-11.0)
[2016-11-22] MEDS ORDERED: PHARMACY ORDERED LAB XX ONE (06:00)
[2016-11-22 06:02] LABS: HEMO FLAGS AUTO DIFF
[2016-11-22 06:26] LABS: BICARBONATE 25.5 MEQ/L (21.0-32.0); MAGNESIUM 1.6 MG/DL (1.5-2.5); POTASSIUM 4.4 MEQ/L (3.5-5.1)
[2016-11-22 06:38] LABS: CALCIUM-PROTEIN CORRECTED 8.4 MG/DL (8.5-10.1)
--- NOTE | 2016-11-22 06:51 | RADRPT ---
EXAM DATE/TIME: 11/22/2016 05:06 [facility] COMPARISON: CHEST SINGLE AP, November 21, 2016, 5:25. INDICATIONS : Infiltrate. MEDICAL HISTORY : None. SURGICAL HISTORY : None. ENCOUNTER: Subsequent ACUITY: 3 days PAIN SCORE: Non-responsive. LOCATION: Bilateral chest FINDINGS: Small caliber left chest tube present without pneumothorax. Mild basilar airspace disease similar to November 21. Heart size normal. Previous left central line has been removed. CONCLUSION: 1. Small caliber left chest tube without pneumothorax. Basal airspace disease similar to November 21. Cj Crouch MD on November 22, 2016 at 6:48 Board Certified Radiologist. This report was verified electronically.
[2016-11-22 08:07] LABS: BANDS 14 % (0-6); METAMYELOCYTES 1 % (0-1); NEUTROPHIL # MANUAL DIFF 39.4 TH/MM3 (1.8-7.7); POLYS (SEG NEUTROPHILS) 84 % (16-70); WBC DIFF SAMPLE 100
[2016-11-22 08:08] LABS: ACANTHOCYTES OCC (NORMAL); PLATELET ESTIMATE SMEAR NORMAL (NORMAL); PLATELET MORPHOLOGY NORMAL (NORMAL)
[2016-11-22 08:09] LABS: OVALOCYTES 1+ (NORMAL); SCAN/DIFF FINAL DIFF MANUAL
--- NOTE | 2016-11-22 08:46 | HHI.CCPN ---
Subjective Remarks/Hospital Course This is a 64-year-old male with history of COPD, hypertension, coronary artery disease, STEMI on 07/08/16 s/p PCI and DELMY (Dr. Crouch), history of C. difficile colitis, non-small cell lung cancer receiving chemoradiation per Dr. Monteiro, history of pulmonary embolism on Lovenox who was admitted to hospital recently from 07/08-08/31/16 with above diagnoses. During that admission he was noted to have a mediastinal and lung mass which was invading bilateral mainstem bronchi- subsequently diagnosed as a non-small cell lung cancer(adenocarcinoma). He had complete atelectasis of the right lung last admission which required bronchoscopy 2. With chemoradiation obstruction improved with resolution of atelectasis. Today patient was brought from the assisted for fever, hypotension, confusion. Apparently patient was to be started on antibiotics for a UTI however prior to starting the antibiotics, he was found to be profoundly hypotensive, confused and was sent to ER. The patient also was noted to have diarrhea. His initial systolic blood pressure was in the 70s, rectal temperature of 100.4 and also tachycardic with a heart rate in 100's. Source of infection seems to be UTI, though HCAP cannot be ruled out. X-ray and CT of the chest shows bilateral pleural effusions left larger than right associated with infiltrate/atelectasis. He has multiple skin ulcers including his sacral area and his bilateral ankles. Patient received 3 L normal saline bolus with improvement in blood pressure. Levophed ordered. I have started patient on stress dose steroids as he was receiving prednisone at the assisted . Patient received Zosyn in the ED. I will place patient on cefepime, Flagyl (hx of C Diff) and IV vancomycin. Infectious disease consulted for septic shock in an immunocompromised patient. 11/13 Patient is on 35% VM, afebrile. Off Levophed 11/14 Patient was started on Cardizem drip 15mg/hr overnight in addition was given Lopressor 2.5mg IV x1 for tachycardia. Afebrile. On Heparin drip. s/p transfusion 1u PRBC for Hgb 6.9 now 8.1. 11/15 Patient is on Neosyn 40 mics, off vasopressin. He was given Amiodarone bolus overnight for Afib with RVR HR remains 120-130's. Afebrile. 11/16: Remains on Cardizem and amiodarone. Off vasopressors. Patient's CXR appears worse. He does not appear in distress. Palliative care consulted and family and patient will decide on hospice after d/w Dr. Monteiro 11/17: Bedside ultrasound shows fairly large left pleural effusion despite chest tube. Possibly loculated. We'll hold off thoracentesis to additional chest tube and the patient makes decisions about comfort measures versus aggressive care. Patient waiting to talk to Dr. Monteiro to decide on hospice 11/18: Patient declined hospice and wants to continue aggressive care at this time. White count has increased to 48.9 with 97% neutrophils, I have requested ID reevaluation. Large right pleural effusion drained today 1.2 L clear fluid. UO 4L in 24 hours 11/19/16: Patient had right thoracentesis yesterday 11/18 with 1.2 L pleural fluid removed. A new left pigtail chest tube was placed also yesterday 11/18 with 580 mL of slightly blood-tinged pleural fluid removal over 24 hours. Patient now on nasal cannula tolerating well. Left 32 Russian chest tube was removed today 11/20: Breathing more comfortably now. Large bore chest tube removed yesterday. No pneumothorax. WBC count slightly improved from 45.5 to 42.5 11/21 No acute events overnight. Patient is lying in bed in NAD. Afebrile. WBC 43 11/22 Patient is on 2L oxygen with good sats. Afebrile. WBC 39 today from 43. Awake and alert. Objective Vital Signs Date Time Temp Pulse Resp B/P Pulse Ox O2 Delivery O2 Flow Rate FiO2 11/22/16 07:35 97 Nasal Cannula 2.00 11/22/16 06:00 81 11/22/16 04:00 97.5 16 152/88 Intake and Output 11/21/16 11/21/16 11/22/16 08:00 16:00 00:00 Intake Total 580 ml 901 ml 1333 ml Output Total 1150 ml 1120 ml 300 ml Balance -570 ml -219 ml 1033 ml Result Diagram: 11/22/16 0516 11/22/16 0516 Other Results Laboratory Tests Test 11/22/16 05:16 White Blood Count 39.8 TH/MM3 Red Blood Count 3.13 MIL/MM3 Hemoglobin 9.1 GM/DL Hematocrit 27.6 % Mean Corpuscular Volume 88.4 FL Mean Corpuscular Hemoglobin 29.0 PG Mean Corpuscular Hemoglobin 32.8 % Concent Red Cell Distribution Width 19.1 % Platelet Count 266 TH/MM3 Mean Platelet Volume 7.1 FL Neutrophils (%) (Auto) 94.7 % Lymphocytes (%) (Auto) 0.8 % Monocytes (%) (Auto) 4.0 % Eosinophils (%) (Auto) 0.0 % Basophils (%) (Auto) 0.5 % Neutrophils # (Auto) 37.7 TH/MM3 Lymphocytes # (Auto) 0.3 TH/MM3 Monocytes # (Auto) 1.6 TH/MM3 Eosinophils # (Auto) 0.0 TH/MM3 Basophils # (Auto) 0.2 TH/MM3 CBC Comment AUTO DIFF Differential Total Cells 100 Counted Neutrophils % (Manual) 84 % Band Neutrophils % 14 % Monocytes % 1 % Neutrophils # (Manual) 39.4 TH/MM3 Metamyelocytes 1 % Differential Comment FINAL DIFF MANUAL Platelet Estimate NORMAL Platelet Morphology Comment NORMAL Ovalocytes 1+ Acanthocytes OCC Sodium Level 141 MEQ/L Potassium Level 4.4 MEQ/L Chloride Level 108 MEQ/L Carbon Dioxide Level 25.5 MEQ/L Anion Gap 8 MEQ/L Blood Urea Nitrogen 14 MG/DL Creatinine 0.48 MG/DL Estimat Glomerular Filtration 174 ML/MIN Rate Random Glucose 118 MG/DL Calcium Level 7.1 MG/DL Protein Corrected Calcium 8.4 MG/DL Phosphorus Level 1.1 MG/DL Magnesium Level 1.6 MG/DL Total Protein 4.8 GM/DL Random Vancomycin Level 16.8 COMMENT Imaging Last Impressions Chest X-Ray 11/22/16 0600 Signed Impressions: Service Date/Time: Tuesday, November 22, 2016 05:06 - CONCLUSION: 1. Small caliber left chest tube without pneumothorax. Basal airspace disease similar to November 21. Cj Crouch MD Chest CT 11/12/16 0000 Signed Impressions: Service Date/Time: Saturday, November 12, 2016 11:23 - CONCLUSION: 1. Bilateral pleural effusions left greater than right. Bilateral dependent parenchymal lung opacity indicating atelectasis. 2. Decrease in size of right hilar and mediastinal mass/enlarged lymph nodes. Prashant Valdez MD Objective Remarks GENERAL: Patient is lying in be din NAD SKIN: Warm and dry. HEAD: Normocephalic. EYES: No scleral icterus. No injection or drainage. NECK: Supple, trachea midline. No JVD or lymphadenopathy. CARDIOVASCULAR: Regular rate and rhythm without murmurs, gallops, or rubs. RESPIRATORY: Breath sounds equal bilaterally. No accessory muscle use. GASTROINTESTINAL: Abdomen soft, non-tender, nondistended. MUSCULOSKELETAL: No cyanosis, or edema. BACK: Nontender without obvious deformity. No CVA tenderness. Neuro: Awake and alert A/P Assessment and Plan NEURO: Acute metabolic encephalopathy-resolved Previous CVA -Minimize sedation, monitor neuro status closely. Awake and alert RESP: Respiratory insufficiency Bilateral pleural effusion Possible HCAP COPD Adenocarcinoma of the lung History of pulmonary embolus -Continue with oxygen keep sat >92% -DuoNeb every 6 hours scheduled and when necessary -At home on chronic prednisone, Solucortef 50 mg q 12 -s/p 32F CT placement 11/12 for left pleural effusion-Exudative effusion per LDH criteria. Removed 11/19/16 -Status post right thoracentesis with 1.2L fluid removed, appears transudative -Status post left pigtail catheter placement for drainage of lower pleural effusion-on 11/18/16. Monitor CT drainage CV: Acute on chronic systolic heart failure Ischemic cardiomyopathy Afib with RVR Hypotension Coronary artery disease Status post STEMI 07/08/16 with PCI/DELMY to D1 Monitor HR and BP keep MAP>65mmHg Amiodarone 400 mg daily and metoprolol 12.5 mg by mouth twice a day EF 30-35%, no RWMA Continue Plavix GI: Diarrhea History C. difficile colitis - On PO diet - On IV IV Protonix : -Monitor renal function, I/O's, electrolytes replacement per protocol -Will need phos replacement today. d/c lasix and IVF ID: Staph aureus Bacteremia Severe sepsis with worsening leukocytosis UTI Possible HCAP History of C. difficile colitis -Continue with abx per ID- Dr. Fabien Michel. Continue IV Vancomycin, Cefepime IV, Micafungin IV and Flagyl PO -monitor for signs of infections ( Fever, WBC) follow up on cultures -BC 11/13: 09/25 . S Aureus -BC 11/12 : Staph Aureus -Urine cx 11/12: Proteus Mirabilis, staph species -Strep pneumonia and Legionella urinary Ag negative -Fluid cx 11/12: NGTD HEME: Non-small cell lung cancer Pulmonary embolism diagnosed on 07/08/16 -Monitor CBC, -Had been started on chemoradiation therapy Dr. Monteiro -Heme onc is following- Dr. Monteiro -On Lovenox 60 mg q12 ENDO: -Electrolyte replacement protocol, sliding scale insulin for glycemic control PROPH: -Bilateral lower extremity SCDs. On Lovenox 60 mg subcutaneous every 12, IV Protonix LINES: -Utilize peripheral IVs, Level 3 PT/OT Jimmy Fernandes MD Nov 22, 2016 08:46 Jimmy Fernandes MD Nov 22, 2016 08:46
[2016-11-22] MEDS: SODIUM PHOSPHATE INJ 30 MMOL in SODIUM CHLOR 0.9% 250 ML INJ 240 ML IV PRN (09:22)
[2016-11-22] MEDS: ENALAPRIL MALEATE 2.5 MG TAB PO SCH (09:45)
[2016-11-22] MEDS: METOPROLOL TARTRATE 25 MG TAB PO SCH ×2 (09:45→20:43)
[2016-11-22] MEDS: AMIODARONE 200 MG TAB PO SCH (09:45)
[2016-11-22] MEDS: PANTOPRAZOLE SODIUM 40 MG VIAL IV SCH (09:46)
[2016-11-22] MEDS: HYDROCORTISONE SOD SUCCINATE 100 MG VIAL IV PUSH SCH (09:46)
[2016-11-22] MEDS: SODIUM CHLORIDE 0.9% FLUSH 5 ML FLUSH IV FLUSH SCH ×2 (09:46→20:43)
[2016-11-22] MEDS: TIOTROPIUM BROMIDE 18 MCG INH INH SCH (09:47)
[2016-11-22] MEDS ORDERED: VANCOMYCIN 1,000 MG/NS 250 ML IV ONE ×2 (10:00)
--- NOTE | 2016-11-22 10:15 | PD.CARD.PN ---
Subjective Subjective Remarks Denies dyspnea, CP, dizziness, nausea, palpitations, PND. Objective Medications Item Value Date Time Enoxaparin Sodium 60 mg 11/20/16 1600 (Lovenox Inj) Q12H/SQ 11/22/16 0533 Enalapril Maleate 2.5 mg 11/20/16 0900 (Vasotec) DAILY/PO 11/22/16 0945 Amiodarone HCl 400 mg 11/18/16 1030 (Cordarone) DAILY/PO 11/22/16 0945 Metoprolol 12.5 mg 11/18/16 1030 Tartrate Q12HR/PO 11/22/16 0945 (Lopressor) Vital Signs / I&O Vital Signs Date Time Temp Pulse Resp B/P Pulse Ox O2 Delivery O2 Flow Rate FiO2 11/22/16 08:00 97.6 83 17 147/85 96 11/22/16 07:35 97 Nasal Cannula 2.00 11/22/16 06:00 81 11/22/16 04:00 97.5 79 16 152/88 96 11/22/16 04:00 96 Nasal Cannula 2.00 11/22/16 04:00 79 11/22/16 02:00 79 11/22/16 00:00 92 Nasal Cannula 2.00 11/22/16 00:00 79 11/22/16 00:00 97.9 79 16 136/79 92 11/21/16 22:00 87 11/21/16 20:00 98.4 99 16 127/72 11/21/16 20:00 99 11/21/16 20:00 Nasal Cannula 2.00 11/21/16 19:45 97 Nasal Cannula 2.00 11/21/16 18:00 103 11/21/16 16:00 98 11/21/16 16:00 98.9 98 21 118/76 98 11/21/16 16:00 98 Nasal Cannula 2.00 11/21/16 14:00 96 11/21/16 12:00 96 Nasal Cannula 2.00 11/21/16 12:00 96 11/21/16 12:00 98.5 96 26 77/57 96 I/O 11/21/16 11/21/16 11/21/16 11/22/16 11/22/16 11/22/16 07:00 15:00 23:00 07:00 15:00 23:00 Intake Total 580 ml 901 ml 1333 ml 707 ml Output Total 1150 ml 1120 ml 300 ml 200 ml Balance -570 ml -219 ml 1033 ml 507 ml Intake Oral 480 ml 100 ml 200 ml IV Total 100 ml 801 ml 1133 ml 707 ml Output Urine Total 1150 ml 1100 ml 300 ml 200 ml Chest Tube Drainage Total 20 ml 0 ml 0 ml # Bowel Movements 1 2 1 0 Physical Exam GENERAL: Well developed, well nourished. No acute distress. HEENT: Jugular venous pressure is normal. CHEST: Diminished breath sounds diffusely. CARDIAC: Regular rate and rhythm without S3, S4, or murmur. ABDOMEN: Soft, nontender, no hepatosplenomegaly. Bowel sounds present. EXTREMITIES: No clubbing, cyanosis, or edema. Laboratory Laboratory Tests Test 11/22/16 05:16 White Blood Count 39.8 TH/MM3 Red Blood Count 3.13 MIL/MM3 Hemoglobin 9.1 GM/DL Hematocrit 27.6 % Mean Corpuscular Volume 88.4 FL Mean Corpuscular Hemoglobin 29.0 PG Mean Corpuscular Hemoglobin 32.8 % Concent Red Cell Distribution Width 19.1 % Platelet Count 266 TH/MM3 Mean Platelet Volume 7.1 FL Neutrophils (%) (Auto) 94.7 % Lymphocytes (%) (Auto) 0.8 % Monocytes (%) (Auto) 4.0 % Eosinophils (%) (Auto) 0.0 % Basophils (%) (Auto) 0.5 % Neutrophils # (Auto) 37.7 TH/MM3 Lymphocytes # (Auto) 0.3 TH/MM3 Monocytes # (Auto) 1.6 TH/MM3 Eosinophils # (Auto) 0.0 TH/MM3 Basophils # (Auto) 0.2 TH/MM3 CBC Comment AUTO DIFF Differential Total Cells 100 Counted Neutrophils % (Manual) 84 % Band Neutrophils % 14 % Monocytes % 1 % Neutrophils # (Manual) 39.4 TH/MM3 Metamyelocytes 1 % Differential Comment FINAL DIFF MANUAL Platelet Estimate NORMAL Platelet Morphology Comment NORMAL Ovalocytes 1+ Acanthocytes OCC Sodium Level 141 MEQ/L Potassium Level 4.4 MEQ/L Chloride Level 108 MEQ/L Carbon Dioxide Level 25.5 MEQ/L Anion Gap 8 MEQ/L Blood Urea Nitrogen 14 MG/DL Creatinine 0.48 MG/DL Estimat Glomerular Filtration 174 ML/MIN Rate Random Glucose 118 MG/DL Calcium Level 7.1 MG/DL Protein Corrected Calcium 8.4 MG/DL Phosphorus Level 1.1 MG/DL Magnesium Level 1.6 MG/DL Total Protein 4.8 GM/DL Random Vancomycin Level 16.8 COMMENT Assessment and Plan Problem List: (1) Paroxysmal atrial fibrillation Assessment and Plan: Remains in NSR. Tolerating medications. Continue oral Amiodarone, metoprolol. With EF now down to about 30% thromboembolic risk at least moderately elevated. Consider starting oral anticoagulation therapy with Xarelto 20 mg qd, and when started stop aspirin, continue Plavix. (2) Dilated cardiomyopathy Assessment and Plan: Echo this admission reviewed. Suspect EF closer to 30% rather than 35-40%. CXR today largely unchanged. REC continued diuresis, beta elan, NICHOLAS-I. (3) CAD (coronary artery disease) Assessment and Plan: History of STEMI, stent diagonal 06/2016. Stable. No recurrent angina. Resume Plavix, baby aspirin Code Status No Code Discussed Condition With patient Problem Qualifiers (1) CAD (coronary artery disease): Qualified Code: I25.10 - Coronary artery disease involving [place] coronary artery of [place] heart without angina pectoris Rene Kaiser MD Nov 22, 2016 10:15
--- NOTE | 2016-11-22 11:54 | HHI.IDPN ---
Subjective Subjective Remarks is a 65 y/o CM who looks older than stated age. His PMHx is significant for COPD, pulmonary embolism, non-small cell lung cancer diagnosis adenocarcinoma along with the mediastinal mass status post chemotherapy as well as radiation therapy who follows with Dr. Rj Monteiro. Patient was recently admitted on July 08, 2016 for chest pain diagnosed with ST elevation WI status post PCI and DELMY by Dr. Crouch cardiology. Patient also was admitted between July 08 to August 31, 2016 and underwent evaluation with diagnosis of non-small cell adenoca lung cancer. At that time was noted to have a lung mass which was invading bilateral mainstem bronchi this was diagnosed to be adenocarcinoma non-small cell lung cancer. He had complete atelectasis of the right lung which required bronchoscopy 2. Patient also underwent chemoradiation therapy and the obstruction was resolved reportedly. Overnight events reviewed with RN. Sandrita rincon. Periods of hypothermia. WBC slightly down 39.8 K Has been on Rx for MSSA Bacteremia and Proteus/MSSA UTI His pleural fluid C/S L is negative, still has CL. Has central line place 11/12 No diarrhea UO ok Awake and responsive. Antibiotics Cefepime Flagyl Micafungin Vancomycin Lines Line sites with no e/o infection Past Medical History reviewed Allergies: Coded Allergies: No Known Allergies (Unverified , 07/08/16) Objective . Vital Signs Date Time Temp Pulse Resp B/P Pulse Ox O2 Delivery O2 Flow Rate FiO2 11/22/16 08:00 97.6 83 17 147/85 96 11/22/16 07:35 97 Nasal Cannula 2.00 11/22/16 06:00 81 11/22/16 04:00 97.5 79 16 152/88 96 11/22/16 04:00 96 Nasal Cannula 2.00 11/22/16 04:00 79 11/22/16 02:00 79 11/22/16 00:00 92 Nasal Cannula 2.00 11/22/16 00:00 79 11/22/16 00:00 97.9 79 16 136/79 92 11/21/16 22:00 87 11/21/16 20:00 98.4 99 16 127/72 11/21/16 20:00 99 11/21/16 20:00 Nasal Cannula 2.00 11/21/16 19:45 97 Nasal Cannula 2.00 11/21/16 18:00 103 11/21/16 16:00 98 11/21/16 16:00 98.9 98 21 118/76 98 11/21/16 16:00 98 Nasal Cannula 2.00 11/21/16 14:00 96 11/21/16 12:00 96 Nasal Cannula 2.00 11/21/16 12:00 96 11/21/16 12:00 98.5 96 26 77/57 96 11/21/16 11/21/16 11/22/16 15:00 23:00 07:00 Intake Total 901 ml 1333 ml 707 ml Output Total 1120 ml 300 ml 200 ml Balance -219 ml 1033 ml 507 ml Intake Oral 100 ml 200 ml IV Total 801 ml 1133 ml 707 ml Output Urine Total 1100 ml 300 ml 200 ml Chest Tube Drainage Total 20 ml 0 ml 0 ml # Bowel Movements 2 1 0 . Laboratory Tests Test 11/20/16 11/21/16 11/22/16 17:45 05:30 05:16 White Blood Count 41.4 TH/MM3 43.0 TH/MM3 39.8 TH/MM3 Red Blood Count 3.31 MIL/MM3 3.20 MIL/MM3 3.13 MIL/MM3 Hemoglobin 9.4 GM/DL 9.2 GM/DL 9.1 GM/DL Hematocrit 29.2 % 28.0 % 27.6 % Mean Corpuscular Volume 88.1 FL 87.6 FL 88.4 FL Mean Corpuscular Hemoglobin 28.3 PG 28.6 PG 29.0 PG Mean Corpuscular Hemoglobin 32.1 % 32.7 % 32.8 % Concent Red Cell Distribution Width 19.1 % 19.0 % 19.1 % Platelet Count 301 TH/MM3 302 TH/MM3 266 TH/MM3 Mean Platelet Volume 7.0 FL 7.1 FL 7.1 FL Neutrophils (%) (Auto) 96.3 % 95.0 % 94.7 % Lymphocytes (%) (Auto) 0.6 % 0.9 % 0.8 % Monocytes (%) (Auto) 2.7 % 4.0 % 4.0 % Eosinophils (%) (Auto) 0.0 % 0.0 % 0.0 % Basophils (%) (Auto) 0.4 % 0.1 % 0.5 % Neutrophils # (Auto) 39.8 TH/MM3 40.8 TH/MM3 37.7 TH/MM3 Lymphocytes # (Auto) 0.2 TH/MM3 0.4 TH/MM3 0.3 TH/MM3 Monocytes # (Auto) 1.1 TH/MM3 1.7 TH/MM3 1.6 TH/MM3 Eosinophils # (Auto) 0.0 TH/MM3 0.0 TH/MM3 0.0 TH/MM3 Basophils # (Auto) 0.1 TH/MM3 0.0 TH/MM3 0.2 TH/MM3 CBC Comment AUTO DIFF AUTO DIFF AUTO DIFF Differential Total Cells 100 100 100 Counted Neutrophils % (Manual) 97 % 85 % 84 % Lymphocytes % 1 % 4 % Neutrophils # (Manual) 41.0 TH/MM3 40.0 TH/MM3 39.4 TH/MM3 Myelocytes 2 % 1 % Differential Comment FINAL DIFF FINAL DIFF FINAL DIFF MANUAL MANUAL MANUAL Platelet Estimate NORMAL NORMAL NORMAL Platelet Morphology Comment NORMAL NORMAL NORMAL Ovalocytes 1+ 1+ Band Neutrophils % 6 % 14 % Monocytes % 3 % 1 % Metamyelocytes 1 % 1 % Keratocytes OCC Acanthocytes OCC Laboratory Tests Test 11/20/16 11/20/16 11/21/16 11/22/16 12:00 17:45 05:30 05:16 Potassium Level 2.7 MEQ/L 3.8 MEQ/L 2.9 MEQ/L 4.4 MEQ/L Sodium Level 140 MEQ/L 141 MEQ/L 141 MEQ/L Chloride Level 104 MEQ/L 103 MEQ/L 108 MEQ/L Carbon Dioxide Level 28.2 MEQ/L 29.3 MEQ/L 25.5 MEQ/L Anion Gap 8 MEQ/L 9 MEQ/L 8 MEQ/L Blood Urea Nitrogen 12 MG/DL 14 MG/DL 14 MG/DL Creatinine 0.45 MG/DL 0.50 MG/DL 0.48 MG/DL Estimat Glomerular Filtration 187 ML/MIN 166 ML/MIN 174 ML/MIN Rate Random Glucose 103 MG/DL 118 MG/DL 118 MG/DL Calcium Level 7.2 MG/DL 7.3 MG/DL 7.1 MG/DL Protein Corrected Calcium 8.3 MG/DL 8.6 MG/DL 8.4 MG/DL Magnesium Level 1.3 MG/DL 1.1 MG/DL 1.6 MG/DL Total Bilirubin 0.4 MG/DL 0.4 MG/DL Aspartate Amino Transf 9 U/L 5 U/L (AST/SGOT) Alanine Aminotransferase LESS THAN 6 U/L LESS THAN 6 U/L (ALT/SGPT) Alkaline Phosphatase 84 U/L 77 U/L Total Protein 5.0 GM/DL 4.8 GM/DL 4.8 GM/DL Albumin 2.2 GM/DL 2.1 GM/DL Phosphorus Level 1.1 MG/DL Microbiology Date/Time Procedure Status Source Growth 11/21/16 10:30 Aerobic Blood Culture - Preliminary Resulted Blood Line NO GROWTH IN 1 DAY 11/21/16 10:30 Anaerobic Blood Culture - Preliminary Resulted Blood Line NO GROWTH IN 1 DAY 11/21/16 10:30 Aerobic Blood Culture - Preliminary Resulted Blood Peripheral NO GROWTH IN 1 DAY 11/21/16 10:30 Anaerobic Blood Culture - Preliminary Resulted Blood Peripheral NO GROWTH IN 1 DAY 11/21/16 10:30 Wound Culture - Preliminary Resulted Catheter Tip Central Venous Line NO GROWTH IN 24 HOURS. 11/21/16 10:30 Fungal Culture Received Catheter Tip Central Venous Line Pending Imaging Chest X-Ray 11/18/16 0600 Signed Impressions: Service Date/Time: Friday, November 18, 2016 03:34 - CONCLUSION: Bilateral effusions and consolidation are again seen right greater than left. Left subclavian line and left-sided chest tube are present. I do not see a pneumothorax. Heart size normal. Jan Arias MD Chest CT 11/12/16 0000 Signed Impressions: Service Date/Time: Saturday, November 12, 2016 11:23 - CONCLUSION: 1. Bilateral pleural effusions left greater than right. Bilateral dependent parenchymal lung opacity indicating atelectasis. 2. Decrease in size of right hilar and mediastinal mass/enlarged lymph nodes. Prashant Valdez MD Chest X-Ray 11/12/16 0908 Signed Impressions: Service Date/Time: Saturday, November 12, 2016 09:30 - CONCLUSION: Left greater than right pleural effusions. Bilateral patchy parenchymal opacity in the right lung apex and left perihilar region. Prashant Valdez MD Chest CT 11/12/16 0000 Signed Impressions: Service Date/Time: Saturday, November 12, 2016 11:23 - CONCLUSION: 1. Bilateral pleural effusions left greater than right. Bilateral dependent parenchymal lung opacity indicating atelectasis. 2. Decrease in size of right hilar and mediastinal mass/enlarged lymph nodes. Prashant Valdez MD Physical Exam GENERAL: NAD. Awake and alert SKIN: Dry skin, warm. No generalized rash. No emboli HEENT: Pale conjunctiva, no petechia or hemorrhage. No scleral icterus. Dry oral mucosa. NECK: Trachea midline. Supple, nontender, no meningeal signs. CARDIOVASCULAR: Heart sounds audible. No murmur appreciated. RESPIRATORY: Breath sounds decreased at both bases. One CT on L side. GASTROINTESTINAL: Abdomen soft, non-tender, nondistended. BS (+) MUSCULOSKELETAL: Mild pedal edema. No joint effusions. NEUROLOGICAL: Alert and oriented. Psych Calm and cooperative IV line sites with no evidence of infection. : Noble in place, with some sediment Assessment & Plan Remarks Septic shock present on admission. MSSA bacteremia MSSA in urine : ? translocation. Proteus UTI, catheter related Prior h.o cdiff. - no diarrhea currently Bilateral pleural effusions - has had jonnie tap, has 2 CT on L Acute anemia: Blood loss query GI versus other site. Acute respiratory failure. Mild abnormal LFTs: ? sepsis related Acute metabolic encephalopathy: Likely infection related. Immune compromised host. Non-small cell adenocarcinoma of the lung with obstruction and mediastinal mass. Worsening leukocytosis - ?new infection Recs: Delayed positive blood culture from 11/13. Follow repeat Blood cultures : 1 from periphery and 1 from CL. Continue IV Vancomycin (target 15-20) ? new CL associated BSI. Continue Cefepime IV Continue Micafungin IV (new BSI workup ongoing, will deescalate) Continue Flagyl PO Follow CBC Monitor progress Will follow 2D ECHO negative. Not a good candidate for RUDY. d/w . Melba Michel MD Nov 22, 2016 11:54
[2016-11-22] MEDS: MICAFUNGIN INJ 100 MG in SODIUM CHLORIDE 0.9% INJ 100 ML IV SCH (16:33)
--- NOTE | 2016-11-22 17:42 | HHI.PR ---
Subjective Remarks No change . Chest tube still draining on left. O2 sat 96 on 2 l. No fever. On Antibiotics per ID Objective Vital Signs Date Time Temp Pulse Resp B/P Pulse Ox O2 Delivery O2 Flow Rate FiO2 11/22/16 16:00 82 11/22/16 16:00 98.0 82 18 116/72 99 11/22/16 16:00 99 Nasal Cannula 2.00 11/22/16 12:00 97.5 85 14 136/81 96 11/22/16 12:00 85 11/22/16 12:00 96 Nasal Cannula 2.00 11/22/16 08:00 97.6 83 17 147/85 96 11/22/16 08:00 64 11/22/16 08:00 96 Nasal Cannula 2.00 11/22/16 07:35 97 Nasal Cannula 2.00 11/22/16 06:00 81 11/22/16 04:00 97.5 79 16 152/88 96 11/22/16 04:00 96 Nasal Cannula 2.00 11/22/16 04:00 79 11/22/16 02:00 79 11/22/16 00:00 92 Nasal Cannula 2.00 11/22/16 00:00 79 11/22/16 00:00 97.9 79 16 136/79 92 11/21/16 22:00 87 11/21/16 20:00 98.4 99 16 127/72 11/21/16 20:00 99 11/21/16 20:00 Nasal Cannula 2.00 11/21/16 19:45 97 Nasal Cannula 2.00 11/21/16 18:00 103 I/O 11/21/16 11/21/16 11/21/16 11/22/16 11/22/16 11/22/16 07:00 15:00 23:00 07:00 15:00 23:00 Intake Total 580 ml 901 ml 1333 ml 707 ml 1083 ml Output Total 1150 ml 1120 ml 300 ml 200 ml 500 ml Balance -570 ml -219 ml 1033 ml 507 ml 583 ml Intake Oral 480 ml 100 ml 200 ml IV Total 100 ml 801 ml 1133 ml 707 ml 1083 ml Output Urine Total 1150 ml 1100 ml 300 ml 200 ml 475 ml Chest Tube Drainage Total 20 ml 0 ml 0 ml 25 ml # Bowel Movements 1 2 1 0 1 Result Diagram: 11/22/16 0516 11/22/16 0516 Objective Remarks GENERAL: This is a thinly built elderly man who is pale and and appears chronically ill. HEENT: Head normocephalic. Pupils are reactive. Tongue moist. Throat is dry. Nasal mucosa is clear. NECK: Supple. No bruits or thyroid enlargement. CHEST: Decreased breath sounds at the bases, mostly the right base with crackles at the lung bases. HEART: The heart sounds are irregular, S1 and S2, no murmur, no S3. ABDOMEN: Soft, nontender. No organomegaly. Bowel sounds are active. EXTREMITIES: Decreased peripheral pulses. NEUROLOGIC: Reflexes are 1+. The patient does have weakness of the lower extremities with some muscle wasting. SKIN: Skin ulcerations. MENTAL STATUS: Mentation is normal. The patient is alert and cooperative. Assessment and Plan Assessment and Plan IMPRESSION 1. Chronic right basilar atelectasis with pleural effusion. 2. Adenocarcinoma of the right lung with metastatic disease. 3. Status post chemotherapy and radiation therapy. 4. History of C. diff colitis. 5. History of coronary artery disease. 6. Hypertension. Plan : 1. O2 at 2 L. 2. IS q3h at bedside. 3. Chest tube to Drainage 4. Cont Antibiotics Cefipime /Flagyl/Zithromax 5. Switch Hydrocortisone to prednisone 20 mg daily. 6. Daiana brown qid. Rubia Lora MD Nov 22, 2016 17:42
[2016-11-22] MEDS: MAGNESIUM SULFATE INJ 2 GM in SODIUM CHLORIDE 0.9% INJ 96 ML IV PRN (20:43)
--- NOTE | 2016-11-22 23:49 | PD.ONC.PN ---
Subjective Subjective Remarks Patient seen earlier in the day, afebrile. denies any pain very weak. does not like hospital food. says trying to eat Objective Data Date Time Temp Pulse Resp B/P Pulse Ox O2 Delivery O2 Flow Rate FiO2 11/22/16 19:25 98 Nasal Cannula 2.00 11/22/16 18:00 84 11/22/16 16:00 82 11/22/16 16:00 98.0 82 18 116/72 99 11/22/16 16:00 99 Nasal Cannula 2.00 11/22/16 12:00 97.5 85 14 136/81 96 11/22/16 12:00 85 11/22/16 12:00 96 Nasal Cannula 2.00 11/22/16 08:00 97.6 83 17 147/85 96 11/22/16 08:00 64 11/22/16 08:00 96 Nasal Cannula 2.00 11/22/16 07:35 97 Nasal Cannula 2.00 11/22/16 06:00 81 11/22/16 04:00 97.5 79 16 152/88 96 11/22/16 04:00 96 Nasal Cannula 2.00 11/22/16 04:00 79 11/22/16 02:00 79 11/22/16 00:00 92 Nasal Cannula 2.00 11/22/16 00:00 79 11/22/16 00:00 97.9 79 16 136/79 92 11/22/16 11/22/16 11/22/16 07:00 15:00 23:00 Intake Total 707 ml 1083 ml Output Total 200 ml 500 ml Balance 507 ml 583 ml Result Diagram: 11/22/16 0516 11/22/16 0516 Laboratory Results Laboratory Tests Test 11/22/16 05:16 White Blood Count 39.8 TH/MM3 Red Blood Count 3.13 MIL/MM3 Hemoglobin 9.1 GM/DL Hematocrit 27.6 % Mean Corpuscular Volume 88.4 FL Mean Corpuscular Hemoglobin 29.0 PG Mean Corpuscular Hemoglobin 32.8 % Concent Red Cell Distribution Width 19.1 % Platelet Count 266 TH/MM3 Mean Platelet Volume 7.1 FL Neutrophils (%) (Auto) 94.7 % Lymphocytes (%) (Auto) 0.8 % Monocytes (%) (Auto) 4.0 % Eosinophils (%) (Auto) 0.0 % Basophils (%) (Auto) 0.5 % Neutrophils # (Auto) 37.7 TH/MM3 Lymphocytes # (Auto) 0.3 TH/MM3 Monocytes # (Auto) 1.6 TH/MM3 Eosinophils # (Auto) 0.0 TH/MM3 Basophils # (Auto) 0.2 TH/MM3 CBC Comment AUTO DIFF Differential Total Cells 100 Counted Neutrophils % (Manual) 84 % Band Neutrophils % 14 % Monocytes % 1 % Neutrophils # (Manual) 39.4 TH/MM3 Metamyelocytes 1 % Differential Comment FINAL DIFF MANUAL Platelet Estimate NORMAL Platelet Morphology Comment NORMAL Ovalocytes 1+ Acanthocytes OCC Sodium Level 141 MEQ/L Potassium Level 4.4 MEQ/L Chloride Level 108 MEQ/L Carbon Dioxide Level 25.5 MEQ/L Anion Gap 8 MEQ/L Blood Urea Nitrogen 14 MG/DL Creatinine 0.48 MG/DL Estimat Glomerular Filtration 174 ML/MIN Rate Random Glucose 118 MG/DL Calcium Level 7.1 MG/DL Protein Corrected Calcium 8.4 MG/DL Phosphorus Level 1.1 MG/DL Magnesium Level 1.6 MG/DL Total Protein 4.8 GM/DL Random Vancomycin Level 16.8 COMMENT Culture Results Microbiology Date/Time Procedure Status Source Growth 11/21/16 10:30 Aerobic Blood Culture - Preliminary Resulted Blood Line NO GROWTH IN 1 DAY 11/21/16 10:30 Anaerobic Blood Culture - Preliminary Resulted Blood Line NO GROWTH IN 1 DAY 11/21/16 10:30 Aerobic Blood Culture - Preliminary Resulted Blood Peripheral NO GROWTH IN 1 DAY 11/21/16 10:30 Anaerobic Blood Culture - Preliminary Resulted Blood Peripheral NO GROWTH IN 1 DAY 11/21/16 10:30 Wound Culture - Preliminary Resulted Catheter Tip Central Venous Line NO GROWTH IN 24 HOURS. 11/21/16 10:30 Fungal Culture Received Catheter Tip Central Venous Line Pending Imaging Studies Last 24 hours Impressions Chest X-Ray 11/22/16 0600 Signed Impressions: Service Date/Time: Tuesday, November 22, 2016 05:06 - CONCLUSION: 1. Small caliber left chest tube without pneumothorax. Basal airspace disease similar to November 21. Cj Crouch MD Administered Medications Medications (Trade) Dose Ordered Sig/Elvia Route PRN Reason Start Time Stop Time Status Last Admin Dose Admin IV Flush (NS Flush) 2 ml UNSCH PRN IV FLUSH FLUSH AFTER USING IV ACCESS 11/12/16 11:00 11/19/16 09:00 IV Flush (NS Flush) 2 ml BID IV FLUSH 11/12/16 21:00 11/22/16 09:46 Acetaminophen (Tylenol) 650 mg Q6H PRN PO PAIN 1-10 AND/OR FEVER >101F 11/12/16 12:00 11/13/16 21:07 Pantoprazole Sodium (Protonix Inj) 40 mg DAILY IV 11/13/16 09:00 11/22/16 09:46 Tiotropium [place] (Spiriva Inh) 18 mcg DAILY INH 11/13/16 09:00 11/22/16 09:47 Clopidogrel Bisulfate 75 mg 75 mg DAILY PO 11/13/16 09:00 11/17/16 10:08 Norepinephrine Bitartrate (Levophed-Dextrose Drip) 250 ml @ 0 mls/hr TITRATE IV 11/12/16 13:30 11/12/16 18:48 Miscellaneous Information Patient in critical care unit? Ass... [id number] XX 11/12/16 18:30 11/12/16 18:30 Potassium Chloride 100 ml @ 50 mls/hr Q2H PRN IV For Potassium 2.8 - 3.2 mEq/L 11/13/16 09:45 11/20/16 16:47 Potassium Chloride 100 ml @ 50 mls/hr Q2H PRN IV For Potassium 2.8 - 3.2 mEq/L 11/13/16 09:45 11/21/16 12:42 Potassium Chloride 100 ml @ 50 mls/hr Q2H PRN IV For Potassium 3.3 - 3.5 mEq/L 11/13/16 09:45 11/20/16 06:26 Magnesium Sulfate 4 gm/Sodium Chloride 100 ml @ 50 mls/hr UNSCH PRN IV For Magnesium 0.9 - 1.1 mg/dL 11/13/16 09:45 11/19/16 09:02 Magnesium Sulfate 2 gm/Sodium Chloride 100 ml @ 50 mls/hr UNSCH PRN IV For Magnesium 1.2 - 1.6 mg/dL 11/13/16 09:45 11/22/16 20:43 Sodium Phosphate 30 mmol/Sodium Chloride 250 ml @ 42 mls/hr UNSCH PRN IV For Phosphorus < 2.5 mg/dL 11/13/16 09:45 11/22/16 09:22 Potassium Phosphate/Sodium Chloride (Potassium Phosphate Inj/NS 250 ml Inj) 260 ml @ 42 mls/hr UNSCH PRN IV SEE LABEL COMMENTS 11/13/16 09:45 11/13/16 13:05 Insulin Human Regular (NovoLIN R SUPPLEMENTAL SCALE) 1 Q6H SQ 11/13/16 10:15 11/21/16 22:12 Metronidazole 500 mg 500 mg Q8HR PO 11/14/16 14:00 11/22/16 20:43 Phenylephrine HCl/ Dextrose (Neosynephrine Inj/D5W 500 ml Inj) 500 ml @ 0 mls/hr TITRATE IV 11/14/16 17:15 11/15/16 12:54 Temazepam (Restoril) 7.5 mg HS PRN PO SLEEP 11/15/16 22:45 11/21/16 22:16 Aspirin (Ecotrin Ec) 81 mg DAILY PO 11/16/16 09:00 11/17/16 09:00 Amiodarone HCl 400 mg 400 mg DAILY PO 11/18/16 10:30 11/22/16 09:45 Vasopressin 40 units/Dextrose 100 ml @ 0 mls/hr Q0M IV 11/18/16 14:45 11/18/16 14:59 Cefepime HCl 2000 mg/Sodium Chloride 100 ml @ 200 mls/hr Q12H IV 11/18/16 18:00 11/22/16 17:01 Micafungin Sodium/ Sodium Chloride (Mycamine Inj/NS Inj) 100 ml @ 100 mls/hr Q24H IV 11/18/16 17:00 11/22/16 16:33 Enoxaparin Sodium (Lovenox Inj) 60 mg Q12H SQ 11/20/16 16:00 11/22/16 16:32 Metoprolol Tartrate (Lopressor) 25 mg Q12HR PO 11/22/16 21:00 11/22/16 20:43 Objective Remarks GENERAL: acutely sick SKIN: Warm and dry. LYMPHATIC: No adenopathy. CARDIOVASCULAR: Regular rate and rhythm without murmurs. RESPIRATORY: Breath sounds equal bilaterally. No accessory muscle use. GASTROINTESTINAL: Abdomen soft, non-tender, nondistended. EXTREMITIES: No cyanosis, or edema. Assessment/Plan Problem List: (1) Septic shock Status: Acute Plan: --on IV abx --BC, 11/13 +S. Aureus --CT chest showed bilateral pleural effusions, left greater than right. 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 --was some improvement of his tumor bulk with concurrent chemotherapy and radiation. (3) Pleural effusion Status: Acute Plan: --s/p pigtail chest tube placement, 11/18, cytology pending --could be cardiac vs malignant -- If the effusions are malignant, then he will have Stage IV disease. (4) Normocytic anemia Status: Acute Plan: -- recommend keeping his hemoglobin greater than 8. (5) Afib Status: Chronic Plan: --on Lovenox 60mg SQ BID --cardiology following. --on Amiodarone + Lopressor Assessment 65y/o with NSCLC admitted with sepsis. h/o tobacco abuse. COPD. Hypertension. Hyperlipidemia. 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 Pulmonary embolism. Peripheral vascular disease status post revascularization of the lower extremities. History of coronary artery disease/DC, status post cardiac catheterization with PCI and drug eluding stent. Plan 1. continue supportive care 2. Pleural fluid negative for malignancy 3. difficult road to any meaningful improvement. patient wants to continue aggressive care Rj Monteiro MD Nov 22, 2016 23:49
[2016-11-23] VITALS (14 sets, daily range): BP systolic 116–151; BP diastolic 69–82; PULSE 75–85; RESP 18–21; TEMP 98.1–98.9; O2SAT 97–100
[2016-11-23] MEDS: TEMAZEPAM 7.5 MG CAP PO PRN ×2 (00:57→21:49)
[2016-11-23] MEDS: INSULIN NovoLIN REGULAR SUPPLEMENTAL SCALE SQ SCH ×4 (04:15→22:15)
[2016-11-23 04:37] LABS: AUTOMATED NEUTROPHIL # 34.5 TH/MM3 (1.8-7.7); BASOPHIL # 0.1 TH/MM3 (0-0.2); BASOPHIL % 0.4 % (0.0-2.0); HEMATOCRIT 27.5 % (39.0-51.0); LYMPHOCYTE # 0.4 TH/MM3 (1.0-4.8); MEAN CELL VOLUME 88.8 FL (80.0-100.0); MEAN CORPUSCULAR HEMOGLOBIN 28.9 PG (27.0-34.0); MEAN CORPUSCULAR HGB CONC 32.5 % (32.0-36.0); MONO % 4.9 % (0.0-8.0); NEUT % 93.7 % (16.0-70.0); PLATELET COUNT 250 TH/MM3 (150-450); RED BLOOD COUNT 3.09 MIL/MM3 (4.50-5.90); RED CELL DISTRIBUTION WIDTH 19.3 % (11.6-17.2); WHITE BLOOD COUNT 36.8 TH/MM3 (4.0-11.0)
[2016-11-23 04:41] LABS: HEMO FLAGS AUTO DIFF
[2016-11-23 05:05] LABS: ALKALINE PHOSPHATASE 76 U/L (45-117); ALT (GPT) LESS THAN 6 U/L (12-78); ANION GAP 10 MEQ/L (5-15); AST (GOT) 8 U/L (15-37); BICARBONATE 24.9 MEQ/L (21.0-32.0); BLOOD UREA NITROGEN 13 MG/DL (7-18); CALCIUM-PROTEIN CORRECTED 8.4 MG/DL (8.5-10.1); CHLORIDE 108 MEQ/L (98-107); GLOMERULAR FILTRATION RATE 215 ML/MIN (>89); MAGNESIUM 1.7 MG/DL (1.5-2.5); SODIUM (NA) 143 MEQ/L (136-145); TOTAL BILIRUBIN ADULT 0.4 MG/DL (0.2-1.0)
[2016-11-23] MEDS: CEFEPIME INJ 2,000 MG in SODIUM CHLORIDE 0.9% INJ 100 ML IV SCH ×2 (05:31→18:00)
[2016-11-23] MEDS: ENOXAPARIN SODIUM 60 MG/0.6 ML SYRINGE SQ SCH ×2 (05:32→16:00)
[2016-11-23] MEDS: metroNIDAZOLE 500 MG TAB PO SCH ×3 (05:32→21:49)
[2016-11-23 07:28] LABS: BANDS 6 % (0-6); NEUTROPHIL # MANUAL DIFF 35.3 TH/MM3 (1.8-7.7); OVALOCYTES 1+ (NORMAL); PLATELET ESTIMATE SMEAR NORMAL (NORMAL); PLATELET MORPHOLOGY NORMAL (NORMAL); POLYS (SEG NEUTROPHILS) 90 % (16-70); SCAN/DIFF FINAL DIFF MANUAL; TOXIC GRANULATION 2+ (NORMAL); WBC DIFF SAMPLE 100
[2016-11-23] MEDS: NS + KCL 20 MEQ INJ 1,000 ML IV SCH ×2 (08:00→18:00)
[2016-11-23] MEDS ORDERED: POTASSIUM PHOSPHATE INJ 30 MMOL in SODIUM CHLOR 0.9% 250 ML INJ 250 ML IV ONE (08:00)
--- NOTE | 2016-11-23 08:02 | PD.CARD.PN ---
Subjective Subjective Remarks Denies pain, dyspnea, dizziness, palpitations, nausea, abdominal pain. Slept fairly well. Objective Medications Item Value Date Time Enalapril Maleate 5 mg 11/23/16 0900 (Vasotec) DAILY/PO Metoprolol 25 mg 11/22/16 2100 Tartrate Q12HR/PO 11/22/16 2043 (Lopressor) Enoxaparin Sodium 60 mg 11/20/16 1600 (Lovenox Inj) Q12H/SQ 11/23/16 0532 Amiodarone HCl 400 mg 11/18/16 1030 (Cordarone) DAILY/PO 11/22/16 0945 Aspirin 81 mg 11/16/16 0900 (Ecotrin Ec) DAILY/PO 11/17/16 0900 Clopidogrel 75 mg 11/13/16 0900 Bisulfate DAILY/PO 11/17/16 1008 (Plavix) Vital Signs / I&O Vital Signs Date Time Temp Pulse Resp B/P Pulse Ox O2 Delivery O2 Flow Rate FiO2 11/23/16 06:00 80 11/23/16 04:00 99 Nasal Cannula 2.00 11/23/16 04:00 76 11/23/16 04:00 98.4 76 19 126/73 99 11/23/16 02:00 75 11/23/16 00:00 97 Nasal Cannula 2.00 11/23/16 00:00 98.6 81 21 122/69 97 11/23/16 00:00 81 11/22/16 22:00 82 11/22/16 20:00 98.3 86 20 137/79 99 11/22/16 20:00 86 11/22/16 20:00 99 Nasal Cannula 2.00 11/22/16 19:25 98 Nasal Cannula 2.00 11/22/16 18:00 84 11/22/16 16:00 82 11/22/16 16:00 98.0 82 18 116/72 99 11/22/16 16:00 99 Nasal Cannula 2.00 11/22/16 12:00 97.5 85 14 136/81 96 11/22/16 12:00 85 11/22/16 12:00 96 Nasal Cannula 2.00 11/22/16 08:00 97.6 83 17 147/85 96 11/22/16 08:00 64 11/22/16 08:00 96 Nasal Cannula 2.00 I/O 11/22/16 11/22/16 11/22/16 11/23/16 11/23/16 11/23/16 07:00 15:00 23:00 07:00 15:00 23:00 Intake Total 707 ml 1083 ml 931 ml 276 ml Output Total 200 ml 500 ml 400 ml 250 ml Balance 507 ml 583 ml 531 ml 26 ml Intake Oral 480 ml 100 ml IV Total 707 ml 1083 ml 451 ml 176 ml Output Urine Total 200 ml 475 ml 400 ml 250 ml Chest Tube Drainage Total 0 ml 25 ml 0 ml # Bowel Movements 0 1 0 1 Physical Exam GENERAL: Well developed, well nourished. No acute distress. HEENT: Jugular venous pressure is normal. CHEST: Diminished breath sounds diffusely. CARDIAC: Regular rate and rhythm without S3, S4, or murmur. ABDOMEN: Soft, nontender, no hepatosplenomegaly. Bowel sounds present. EXTREMITIES: No clubbing, cyanosis, or edema. Laboratory Laboratory Tests Test 11/23/16 03:45 White Blood Count 36.8 TH/MM3 Red Blood Count 3.09 MIL/MM3 Hemoglobin 8.9 GM/DL Hematocrit 27.5 % Mean Corpuscular Volume 88.8 FL Mean Corpuscular Hemoglobin 28.9 PG Mean Corpuscular Hemoglobin 32.5 % Concent Red Cell Distribution Width 19.3 % Platelet Count 250 TH/MM3 Mean Platelet Volume 7.3 FL Neutrophils (%) (Auto) 93.7 % Lymphocytes (%) (Auto) 1.0 % Monocytes (%) (Auto) 4.9 % Eosinophils (%) (Auto) 0.0 % Basophils (%) (Auto) 0.4 % Neutrophils # (Auto) 34.5 TH/MM3 Lymphocytes # (Auto) 0.4 TH/MM3 Monocytes # (Auto) 1.8 TH/MM3 Eosinophils # (Auto) 0.0 TH/MM3 Basophils # (Auto) 0.1 TH/MM3 CBC Comment AUTO DIFF Differential Total Cells 100 Counted Neutrophils % (Manual) 90 % Band Neutrophils % 6 % Monocytes % 4 % Neutrophils # (Manual) 35.3 TH/MM3 Differential Comment FINAL DIFF MANUAL Toxic Granulation 2+ Platelet Estimate NORMAL Platelet Morphology Comment NORMAL Ovalocytes 1+ Sodium Level 143 MEQ/L Potassium Level 3.0 MEQ/L Chloride Level 108 MEQ/L Carbon Dioxide Level 24.9 MEQ/L Anion Gap 10 MEQ/L Blood Urea Nitrogen 13 MG/DL Creatinine 0.40 MG/DL Estimat Glomerular Filtration 215 ML/MIN Rate Random Glucose 96 MG/DL Calcium Level 7.1 MG/DL Protein Corrected Calcium 8.4 MG/DL Phosphorus Level 2.0 MG/DL Magnesium Level 1.7 MG/DL Total Bilirubin 0.4 MG/DL Aspartate Amino Transf 8 U/L (AST/SGOT) Alanine Aminotransferase LESS THAN 6 U/L (ALT/SGPT) Alkaline Phosphatase 76 U/L Total Protein 4.8 GM/DL Albumin 1.8 GM/DL Random Vancomycin Level 8.2 COMMENT Assessment and Plan Problem List: (1) Paroxysmal atrial fibrillation Assessment and Plan: Remains in NSR. Continue oral Amiodarone, decrease dose to 200 mg qd, metoprolol. With EF now down to about 30% thromboembolic risk at least moderately elevated. Consider starting oral anticoagulation therapy with Xarelto 20 mg qd, and when Xarelto started, stop aspirin, continue Plavix. Will f/u PRN rest of hospital stay. He can f/u with Dr. Chao Crouch after discharge. (2) Dilated cardiomyopathy Assessment and Plan: Echo this admission reviewed. Suspect EF closer to 30% rather than 35-40%. No new recommendations. (3) CAD (coronary artery disease) Assessment and Plan: History of STEMI, stent diagonal 06/2016. Stable. No recurrent angina. Continue aspirin, Plavix. Would try to avoid holding Plavix as there will be a high risk of stent thrombosis and myocardial infarction. Code Status No Code. Discussed Condition With patient Problem Qualifiers (1) CAD (coronary artery disease): Qualified Code: I25.10 - Coronary artery disease involving rincon coronary artery of rincon heart without angina pectoris Rene Kaiser MD Nov 23, 2016 08:02
[2016-11-23] MEDS: METOPROLOL TARTRATE 25 MG TAB PO SCH ×2 (09:00→21:49)
[2016-11-23] MEDS: ENALAPRIL MALEATE 2.5 MG TAB PO SCH (09:00)
[2016-11-23] MEDS: predniSONE 20 MG TAB PO SCH (09:00)
[2016-11-23] MEDS: TIOTROPIUM BROMIDE 18 MCG INH INH SCH (09:00)
[2016-11-23] MEDS: CLOPIDOGREL 75 MG TAB PO SCH (09:00)
[2016-11-23] MEDS: PANTOPRAZOLE SODIUM 40 MG VIAL IV SCH (09:00)
[2016-11-23] MEDS: AMIODARONE 200 MG TAB PO SCH (09:00)
[2016-11-23] MEDS: ASPIRIN EC 81 MG TABEC PO SCH (09:00)
[2016-11-23] MEDS: SODIUM CHLORIDE 0.9% FLUSH 5 ML FLUSH IV FLUSH SCH ×2 (09:00→21:00)
--- NOTE | 2016-11-23 09:09 | HHI.CCPN ---
Subjective Remarks/Hospital Course This is a 64-year-old male with history of COPD, hypertension, coronary artery disease, STEMI on 07/08/16 s/p PCI and DELMY (Dr. Crouch), history of C. difficile colitis, non-small cell lung cancer receiving chemoradiation per Dr. Monteiro, history of pulmonary embolism on Lovenox who was admitted to hospital recently from 07/08-08/31/16 with above diagnoses. During that admission he was noted to have a mediastinal and lung mass which was invading bilateral mainstem bronchi- subsequently diagnosed as a non-small cell lung cancer(adenocarcinoma). He had complete atelectasis of the right lung last admission which required bronchoscopy 2. With chemoradiation obstruction improved with resolution of atelectasis. Today patient was brought from the [place] [facility] for fever, hypotension, confusion. Apparently patient was to be started on antibiotics for a UTI however prior to starting the antibiotics, he was found to be profoundly hypotensive, confused and was sent to ER. The patient also was noted to have diarrhea. His initial systolic blood pressure was in the 70s, rectal temperature of 100.4 and also tachycardic with a heart rate in 100's. Source of infection seems to be UTI, though HCAP cannot be ruled out. X-ray and CT of the chest shows bilateral pleural effusions left larger than right associated with infiltrate/atelectasis. He has multiple skin ulcers including his sacral area and his bilateral ankles. Patient received 3 L normal saline bolus with improvement in blood pressure. Levophed ordered. I have started patient on stress dose steroids as he was receiving prednisone at the [place] [facility] . Patient received Zosyn in the ED. I will place patient on cefepime, Flagyl (hx of C Diff) and IV vancomycin. Infectious disease consulted for septic shock in an immunocompromised patient. 11/13 Patient is on 35% VM, afebrile. Off Levophed 11/14 Patient was started on Cardizem drip 15mg/hr overnight in addition was given Lopressor 2.5mg IV x1 for tachycardia. Afebrile. On Heparin drip. s/p transfusion 1u PRBC for Hgb 6.9 now 8.1. 11/15 Patient is on Neosyn 40 mics, off vasopressin. He was given Amiodarone bolus overnight for Afib with RVR HR remains 120-130's. Afebrile. 11/16: Remains on Cardizem and amiodarone. Off vasopressors. Patient's CXR appears worse. He does not appear in distress. Palliative care consulted and family and patient will decide on hospice after d/w Dr. Monteiro 11/17: Bedside ultrasound shows fairly large left pleural effusion despite chest tube. Possibly loculated. We'll hold off thoracentesis to additional chest tube and the patient makes decisions about comfort measures versus aggressive care. Patient waiting to talk to Dr. Monteiro to decide on hospice 11/18: Patient declined hospice and wants to continue aggressive care at this time. White count has increased to 48.9 with 97% neutrophils, I have requested ID reevaluation. Large right pleural effusion drained today 1.2 L clear fluid. UO 4L in 24 hours 11/19/16: Patient had right thoracentesis yesterday 11/18 with 1.2 L pleural fluid removed. A new left pigtail chest tube was placed also yesterday 11/18 with 580 mL of slightly blood-tinged pleural fluid removal over 24 hours. Patient now on nasal cannula tolerating well. Left [address] [place] chest tube was removed today 11/20: Breathing more comfortably now. Large bore chest tube removed yesterday. No pneumothorax. WBC count slightly improved from 45.5 to 42.5 11/21 No acute events overnight. Patient is lying in bed in NAD. Afebrile. WBC 43 11/22 Patient is on 2L oxygen with good sats. Afebrile. WBC 39 today from 43. Awake and alert. 11/23 No acute events overnight. WBC trending down 36 today. Afebrile. Objective Vital Signs Date Time Temp Pulse Resp B/P Pulse Ox O2 Delivery O2 Flow Rate FiO2 11/23/16 08:42 100 Nasal Cannula 2.00 11/23/16 06:00 80 11/23/16 04:00 98.4 19 126/73 Intake and Output 11/22/16 11/22/16 11/23/16 08:00 16:00 00:00 Intake Total 707 ml 1083 ml 931 ml Output Total 200 ml 500 ml 400 ml Balance 507 ml 583 ml 531 ml Result Diagram: 11/23/16 0345 11/23/16 0345 Other Results Laboratory Tests Test 11/23/16 03:45 White Blood Count 36.8 TH/MM3 Red Blood Count 3.09 MIL/MM3 Hemoglobin 8.9 GM/DL Hematocrit 27.5 % Mean Corpuscular Volume 88.8 FL Mean Corpuscular Hemoglobin 28.9 PG Mean Corpuscular Hemoglobin 32.5 % Concent Red Cell Distribution Width 19.3 % Platelet Count 250 TH/MM3 Mean Platelet Volume 7.3 FL Neutrophils (%) (Auto) 93.7 % Lymphocytes (%) (Auto) 1.0 % Monocytes (%) (Auto) 4.9 % Eosinophils (%) (Auto) 0.0 % Basophils (%) (Auto) 0.4 % Neutrophils # (Auto) 34.5 TH/MM3 Lymphocytes # (Auto) 0.4 TH/MM3 Monocytes # (Auto) 1.8 TH/MM3 Eosinophils # (Auto) 0.0 TH/MM3 Basophils # (Auto) 0.1 TH/MM3 CBC Comment AUTO DIFF Differential Total Cells 100 Counted Neutrophils % (Manual) 90 % Band Neutrophils % 6 % Monocytes % 4 % Neutrophils # (Manual) 35.3 TH/MM3 Differential Comment FINAL DIFF MANUAL Toxic Granulation 2+ Platelet Estimate NORMAL Platelet Morphology Comment NORMAL Ovalocytes 1+ Sodium Level 143 MEQ/L Potassium Level 3.0 MEQ/L Chloride Level 108 MEQ/L Carbon Dioxide Level 24.9 MEQ/L Anion Gap 10 MEQ/L Blood Urea Nitrogen 13 MG/DL Creatinine 0.40 MG/DL Estimat Glomerular Filtration 215 ML/MIN Rate Random Glucose 96 MG/DL Calcium Level 7.1 MG/DL Protein Corrected Calcium 8.4 MG/DL Phosphorus Level 2.0 MG/DL Magnesium Level 1.7 MG/DL Total Bilirubin 0.4 MG/DL Aspartate Amino Transf 8 U/L (AST/SGOT) Alanine Aminotransferase LESS THAN 6 U/L (ALT/SGPT) Alkaline Phosphatase 76 U/L Total Protein 4.8 GM/DL Albumin 1.8 GM/DL Random Vancomycin Level 8.2 COMMENT Imaging Last Impressions Chest X-Ray 11/22/16 0600 Signed Impressions: Service Date/Time: Tuesday, November 22, 2016 05:06 - CONCLUSION: 1. Small caliber left chest tube without pneumothorax. Basal airspace disease similar to November 21. Cj Crouch MD Chest CT 11/12/16 0000 Signed Impressions: Service Date/Time: Saturday, November 12, 2016 11:23 - CONCLUSION: 1. Bilateral pleural effusions left greater than right. Bilateral dependent parenchymal lung opacity indicating atelectasis. 2. Decrease in size of right hilar and mediastinal mass/enlarged lymph nodes. Prashant Valdez MD Objective Remarks GENERAL: Patient is lying in be din NAD SKIN: Warm and dry. HEAD: Normocephalic. EYES: No scleral icterus. No injection or drainage. NECK: Supple, trachea midline. No JVD or lymphadenopathy. CARDIOVASCULAR: Regular rate and rhythm without murmurs, gallops, or rubs. RESPIRATORY: Breath sounds equal bilaterally. No accessory muscle use. GASTROINTESTINAL: Abdomen soft, non-tender, nondistended. MUSCULOSKELETAL: No cyanosis, or edema. BACK: Nontender without obvious deformity. No CVA tenderness. Neuro: Awake and alert A/P Assessment and Plan NEURO: Acute metabolic encephalopathy-resolved Previous CVA -Minimize sedation, monitor neuro status closely. Awake and alert RESP: Respiratory insufficiency Bilateral pleural effusion Possible HCAP COPD Adenocarcinoma of the lung History of pulmonary embolus -Continue with oxygen keep sat >92% -DuoNeb every 6 hours scheduled and when necessary -At home on chronic prednisone, Solucortef 50 mg q 12 -s/p 32F CT placement 11/12 for left pleural effusion-Exudative effusion per LDH criteria. Removed 11/19/16 -Cytology negative for malignancy -Status post right thoracentesis with 1.2L fluid removed, appears transudative -Status post left pigtail catheter placement for drainage of lower pleural effusion-on 11/18/16. -CT clamped repeat CXR showed no PTX or effusions and clearing of pulmonary parenchyma. Pigtail catheter was subsequently d/brooke. -Patient had open wound from previous CT placement 3 sutures were placed. CV: Acute on chronic systolic heart failure Ischemic cardiomyopathy Afib with RVR Hypotension Coronary artery disease Status post STEMI 07/08/16 with PCI/DELMY to D1 Monitor HR and BP keep MAP>65mmHg Amiodarone 400 mg daily and metoprolol 12.5 mg by mouth twice a day EF 30-35%, no RWMA Continue Plavix GI: Diarrhea History C. difficile colitis - On PO diet - On IV IV Protonix : -Monitor renal function, I/O's, electrolytes replacement per protocol -Will need K,phos replacement today. ID: Staph aureus Bacteremia Severe sepsis with worsening leukocytosis UTI Possible HCAP History of C. difficile colitis -Continue with abx per ID- Dr. Fabien Michel. Continue IV Vancomycin, Cefepime IV, Micafungin IV and Flagyl PO -Monitor for signs of infections ( Fever, WBC) WBC trending down. -BC 11/13: 09/25 . S Aureus -BC 11/12 : Staph Aureus -Urine cx 11/12: Proteus Mirabilis, staph species -Strep pneumonia and Legionella urinary Ag negative -Recheck C-diff PCR HEME: Non-small cell lung cancer Pulmonary embolism diagnosed on 07/08/16 -Monitor CBC, -Had been started on chemoradiation therapy Dr. Monteiro -Heme onc is following- Dr. Monteiro -On Lovenox 60 mg q12 ENDO: -Electrolyte replacement protocol, sliding scale insulin for glycemic control PROPH: -Bilateral lower extremity SCDs. On Lovenox 60 mg subcutaneous every 12, IV Protonix LINES: -Utilize peripheral IVs, Will sign off and transfer care to [facility] Level 2 PT/OT Jimmy Fernandes MD Nov 23, 2016 09:09
[2016-11-23] MEDS ORDERED: VANCOMYCIN 1,000 MG/NS 250 ML IV SCH ×2 (10:00)
--- NOTE | 2016-11-23 10:58 | HHI.IDPN ---
Subjective Subjective Remarks is a 65 y/o CM who looks older than stated age. His PMHx is significant for COPD, pulmonary embolism, non-small cell lung cancer diagnosis adenocarcinoma along with the mediastinal mass status post chemotherapy as well as radiation therapy who follows with Dr. Rj Monteiro. Patient was recently admitted on July 08, 2016 for chest pain diagnosed with ST elevation NM status post PCI and DELMY by Dr. Crouch cardiology. Patient also was admitted between July 08 to August 31, 2016 and underwent evaluation with diagnosis of non-small cell adenoca lung cancer. At that time was noted to have a lung mass which was invading bilateral mainstem bronchi this was diagnosed to be adenocarcinoma non-small cell lung cancer. He had complete atelectasis of the right lung which required bronchoscopy 2. Patient also underwent chemoradiation therapy and the obstruction was resolved reportedly. Overnight events reviewed with RN. Temmiroslava ok. Periods of hypothermia. WBC slightly down 36.8 K RN reports several episodes of loose watery diarrhea. Chest tube being clamped and repeat CXR planned for later today. No rash Sitting up in bed with lot of assistance from RN and PT. Antibiotics Cefepime Flagyl Micafungin Vancomycin Lines Line sites with no e/o infection Past Medical History reviewed Allergies: Coded Allergies: No Known Allergies (Unverified , 07/08/16) Objective . Vital Signs Date Time Temp Pulse Resp B/P Pulse Ox O2 Delivery O2 Flow Rate FiO2 11/23/16 08:42 100 Nasal Cannula 2.00 11/23/16 06:00 80 11/23/16 04:00 99 Nasal Cannula 2.00 11/23/16 04:00 76 11/23/16 04:00 98.4 76 19 126/73 99 11/23/16 02:00 75 11/23/16 00:00 97 Nasal Cannula 2.00 11/23/16 00:00 98.6 81 21 122/69 97 11/23/16 00:00 81 11/22/16 22:00 82 11/22/16 20:00 98.3 86 20 137/79 99 11/22/16 20:00 86 11/22/16 20:00 99 Nasal Cannula 2.00 11/22/16 19:25 98 Nasal Cannula 2.00 11/22/16 18:00 84 11/22/16 16:00 82 11/22/16 16:00 98.0 82 18 116/72 99 11/22/16 16:00 99 Nasal Cannula 2.00 11/22/16 12:00 97.5 85 14 136/81 96 11/22/16 12:00 85 11/22/16 12:00 96 Nasal Cannula 2.00 11/22/16 11/22/16 11/23/16 15:00 23:00 07:00 Intake Total 1083 ml 931 ml 276 ml Output Total 500 ml 400 ml 250 ml Balance 583 ml 531 ml 26 ml Intake Oral 480 ml 100 ml IV Total 1083 ml 451 ml 176 ml Output Urine Total 475 ml 400 ml 250 ml Chest Tube Drainage Total 25 ml 0 ml # Bowel Movements 1 0 1 . Laboratory Tests Test 11/22/16 11/23/16 05:16 03:45 White Blood Count 39.8 TH/MM3 36.8 TH/MM3 Red Blood Count 3.13 MIL/MM3 3.09 MIL/MM3 Hemoglobin 9.1 GM/DL 8.9 GM/DL Hematocrit 27.6 % 27.5 % Mean Corpuscular Volume 88.4 FL 88.8 FL Mean Corpuscular Hemoglobin 29.0 PG 28.9 PG Mean Corpuscular Hemoglobin 32.8 % 32.5 % Concent Red Cell Distribution Width 19.1 % 19.3 % Platelet Count 266 TH/MM3 250 TH/MM3 Mean Platelet Volume 7.1 FL 7.3 FL Neutrophils (%) (Auto) 94.7 % 93.7 % Lymphocytes (%) (Auto) 0.8 % 1.0 % Monocytes (%) (Auto) 4.0 % 4.9 % Eosinophils (%) (Auto) 0.0 % 0.0 % Basophils (%) (Auto) 0.5 % 0.4 % Neutrophils # (Auto) 37.7 TH/MM3 34.5 TH/MM3 Lymphocytes # (Auto) 0.3 TH/MM3 0.4 TH/MM3 Monocytes # (Auto) 1.6 TH/MM3 1.8 TH/MM3 Eosinophils # (Auto) 0.0 TH/MM3 0.0 TH/MM3 Basophils # (Auto) 0.2 TH/MM3 0.1 TH/MM3 CBC Comment AUTO DIFF AUTO DIFF Differential Total Cells 100 100 Counted Neutrophils % (Manual) 84 % 90 % Band Neutrophils % 14 % 6 % Monocytes % 1 % 4 % Neutrophils # (Manual) 39.4 TH/MM3 35.3 TH/MM3 Metamyelocytes 1 % Differential Comment FINAL DIFF FINAL DIFF MANUAL MANUAL Platelet Estimate NORMAL NORMAL Platelet Morphology Comment NORMAL NORMAL Ovalocytes 1+ 1+ Acanthocytes OCC Toxic Granulation 2+ Laboratory Tests Test 11/22/16 11/23/16 05:16 03:45 Sodium Level 141 MEQ/L 143 MEQ/L Potassium Level 4.4 MEQ/L 3.0 MEQ/L Chloride Level 108 MEQ/L 108 MEQ/L Carbon Dioxide Level 25.5 MEQ/L 24.9 MEQ/L Anion Gap 8 MEQ/L 10 MEQ/L Blood Urea Nitrogen 14 MG/DL 13 MG/DL Creatinine 0.48 MG/DL 0.40 MG/DL Estimat Glomerular Filtration 174 ML/MIN 215 ML/MIN Rate Random Glucose 118 MG/DL 96 MG/DL Calcium Level 7.1 MG/DL 7.1 MG/DL Protein Corrected Calcium 8.4 MG/DL 8.4 MG/DL Phosphorus Level 1.1 MG/DL 2.0 MG/DL Magnesium Level 1.6 MG/DL 1.7 MG/DL Total Protein 4.8 GM/DL 4.8 GM/DL Total Bilirubin 0.4 MG/DL Aspartate Amino Transf 8 U/L (AST/SGOT) Alanine Aminotransferase LESS THAN 6 U/L (ALT/SGPT) Alkaline Phosphatase 76 U/L Albumin 1.8 GM/DL Microbiology Date/Time Procedure Status Source Growth 11/21/16 10:30 Aerobic Blood Culture - Preliminary Resulted Blood Line NO GROWTH IN 1 DAY 11/21/16 10:30 Anaerobic Blood Culture - Preliminary Resulted Blood Line NO GROWTH IN 1 DAY 11/21/16 10:30 Aerobic Blood Culture - Preliminary Resulted Blood Peripheral NO GROWTH IN 1 DAY 11/21/16 10:30 Anaerobic Blood Culture - Preliminary Resulted Blood Peripheral NO GROWTH IN 1 DAY 11/21/16 10:30 Wound Culture - Preliminary Resulted Catheter Tip Central Venous Line NO GROWTH IN 48 HOURS. 11/21/16 10:30 Fungal Culture Received Catheter Tip Central Venous Line Pending Imaging Chest X-Ray 11/18/16 0600 Signed Impressions: Service Date/Time: Friday, November 18, 2016 03:34 - CONCLUSION: Bilateral effusions and consolidation are again seen right greater than left. Left subclavian line and left-sided chest tube are present. I do not see a pneumothorax. Heart size normal. Jan Arias MD Chest CT 2/19/17 0000 Signed Impressions: Service Date/Time: Saturday, November 12, 2016 11:23 - CONCLUSION: 1. Bilateral pleural effusions left greater than right. Bilateral dependent parenchymal lung opacity indicating atelectasis. 2. Decrease in size of right hilar and mediastinal mass/enlarged lymph nodes. Prashant Valdez MD Chest X-Ray 11/12/16 0908 Signed Impressions: Service Date/Time: Saturday, November 12, 2016 09:30 - CONCLUSION: Left greater than right pleural effusions. Bilateral patchy parenchymal opacity in the right lung apex and left perihilar region. Prashant Valdez MD Chest CT 11/12/16 0000 Signed Impressions: Service Date/Time: Saturday, November 12, 2016 11:23 - CONCLUSION: 1. Bilateral pleural effusions left greater than right. Bilateral dependent parenchymal lung opacity indicating atelectasis. 2. Decrease in size of right hilar and mediastinal mass/enlarged lymph nodes. Prashant Valdez MD Physical Exam GENERAL: NAD. Awake and alert SKIN: Dry skin, warm. No generalized rash. No emboli HEENT: Pale conjunctiva, no petechia or hemorrhage. No scleral icterus. Dry oral mucosa. NECK: Trachea midline. Supple, nontender, no meningeal signs. CARDIOVASCULAR: Heart sounds audible. No murmur appreciated. RESPIRATORY: Breath sounds decreased at both bases. One CT on L side. GASTROINTESTINAL: Abdomen soft, non-tender, nondistended. BS (+) MUSCULOSKELETAL: Mild pedal edema. No joint effusions. NEUROLOGICAL: Alert and oriented. Psych Calm and cooperative IV line sites with no evidence of infection. : Noble in place, with some sediment Assessment & Plan Remarks Septic shock present on admission. MSSA bacteremia MSSA in urine : ? translocation. Pneumonia with effusions. Proteus UTI, catheter related Prior h.o cdiff. - no diarrhea currently Bilateral pleural effusions - has had jonnie tap, has 2 CT on L Acute anemia: Blood loss query GI versus other site. Acute respiratory failure. Mild abnormal LFTs: ? sepsis related Acute metabolic encephalopathy: Likely infection related. Immune compromised host. Non-small cell adenocarcinoma of the lung with obstruction and mediastinal mass. Worsening leukocytosis - ?new infection Recs: DC Vanco IV DC Micafungin IV Continue Cefepime IV Continue Flagyl PO Check Cdiff PCR. CXR after clamping chest tube. Monitor progress d/w and RN. Melba Michel MD Nov 23, 2016 10:58
--- NOTE | 2016-11-23 12:49 | RADRPT ---
EXAM DATE/TIME: 11/23/2016 12:24 [facility] COMPARISON: CHEST SINGLE AP, November 22, 2016, 5:06. INDICATIONS : Evaluate chest tube MEDICAL HISTORY : Hypertension. Chronic obstructive pulmonary disease. SURGICAL HISTORY : Appendectomy. ENCOUNTER: Subsequent ACUITY: 1 week PAIN SCORE: Non-responsive. LOCATION: Bilateral chest FINDINGS: There is a small bore chest tube in place at the left lung base. There is no pneumothorax. No effusio n is seen. There is partial interval clearing of the right lung base. The heart is normal in size. Th e bony structures are grossly intact. CONCLUSION: 1. Small bore chest tube on the left. No pneumothorax. 2. Interval clearing of the pulmonary parenchyma compared to previous. Constantino Huynh MD on November 23, 2016 at 12:45 Board Certified Radiologist. This report was verified electronically.
[2016-11-23] MEDS ORDERED: LIDOCAINE HCL 1% 50 ML VIAL ONE (13:19)
[2016-11-23 15:56] LABS: C. DIFF EPI 027 PRESUMPTIVE NEGATIVE (NEGATIVE); C. DIFF TOXIN PCR NEGATIVE (NEGATIVE)
--- NOTE | 2016-11-23 16:03 | HHI.HCPN ---
Reason for visit a. To assist with evaluation and management of symptoms including: Dyspnea b. To assist medical decision maker(s) with: better understanding of current medical conditions; weighing benefits/burdens of medical treatment options; making medical treatment decisions. . Subjective/Interval History Pt currently denies any complaints, except some dyspnea at times. He however states it is mild and much better than before. Pt alert and oriented. Revisited goals of care, and reviewed what hospice services can do. Told pt currently, he appears to be relatively stable and the way he is now, he will not right away if he signed on with hospice. I did tell him, with his cancer, he will pass even without hospice. He understands, but does not want to go to hospice right now. I was able to speak with , who supports husbands decision. Family/friend interactions see above. Advance Directives Living Will: Never completed Health Care Surrogate: Never completed Durable Power of Personal Financial Counselor: Never completed Objective Vital Signs Date Time Temp Pulse Resp B/P Pulse Ox O2 Delivery O2 Flow Rate FiO2 11/23/16 10:00 80 11/23/16 08:42 100 Nasal Cannula 2.00 11/23/16 08:00 99 Nasal Cannula 2.00 11/23/16 08:00 80 11/23/16 08:00 84 11/23/16 06:00 80 11/23/16 04:00 99 Nasal Cannula 2.00 11/23/16 04:00 76 11/23/16 04:00 98.4 76 19 126/73 99 11/23/16 02:00 75 11/23/16 00:00 97 Nasal Cannula 2.00 11/23/16 00:00 98.6 81 21 122/69 97 11/23/16 00:00 81 11/22/16 22:00 82 11/22/16 20:00 98.3 86 20 137/79 99 11/22/16 20:00 86 11/22/16 20:00 99 Nasal Cannula 2.00 11/22/16 19:25 98 Nasal Cannula 2.00 11/22/16 18:00 84 11/22/16 16:00 82 11/22/16 16:00 98.0 82 18 116/72 99 11/22/16 16:00 99 Nasal Cannula 2.00 Intake & Output 11/23/16 11/23/16 07:00 19:00 Intake Total 1207 ml Output Total 650 ml Balance 557 ml Intake Oral 580 ml IV Total 627 ml Output Urine Total 650 ml Chest Tube Drainage Total 0 ml # Bowel Movements 1 Physical Exam CONSTITUTIONAL/GENERAL: This is a profoundly weak and somewhat cachectic patient , in no distress. NECK: Trachea midline. Supple, nontender. No palpable thyroid enlargement or nodularity. CARDIOVASCULAR: Irregularly irregular rhythm without murmurs or rubs. No JVD. Peripheral pulses weak/symmetric. RESPIRATORY/CHEST: Symmetric, mildly labored respirations. Scattered rales and rhonchi. chest tube. GASTROINTESTINAL: Abdomen soft, non-tender, nondistended. No hepato-splenomegaly , or palpable masses. No guarding. Bowel sounds present. GENITOURINARY: Without palpable bladder distension. MUSCULOSKELETAL: Extremities without clubbing, cyanosis, but there is some 1+ edema in his right arm and both feet.. No joint tenderness or effusion noted. No calf tenderness. No mottling or clubbing. NEUROLOGICAL: Awake and alert. He is profoundly weak globally. Follows commands. Cognitively sharp. Moves all extremities. PSYCHIATRIC: No obvious anxiety/depression. no apparent hallucinations or other psychotic thought process. . Diagnostic Tests Laboratory Laboratory Tests Test 11/20/16 11/21/16 11/22/16 11/23/16 17:45 05:30 05:16 03:45 White Blood Count 41.4 TH/MM3 43.0 TH/MM3 39.8 TH/MM3 36.8 TH/MM3 (4.0-11.0) (4.0-11.0) (4.0-11.0) (4.0-11.0) Red Blood Count 3.31 MIL/MM3 3.20 MIL/MM3 3.13 MIL/MM3 3.09 MIL/MM3 (4.50-5.90) (4.50-5.90) (4.50-5.90) (4.50-5.90) Hemoglobin 9.4 GM/DL 9.2 GM/DL 9.1 GM/DL 8.9 GM/DL (13.0-17.0) (13.0-17.0) (13.0-17.0) (13.0-17.0) Hematocrit 29.2 % 28.0 % 27.6 % 27.5 % (39.0-51.0) (39.0-51.0) (39.0-51.0) (39.0-51.0) Mean Corpuscular Volume 88.1 FL 87.6 FL 88.4 FL 88.8 FL (80.0-100.0) (80.0-100.0) (80.0-100.0) (80.0-100.0) Mean Corpuscular Hemoglobin 28.3 PG 28.6 PG 29.0 PG 28.9 PG (27.0-34.0) (27.0-34.0) (27.0-34.0) (27.0-34.0) Mean Corpuscular Hemoglobin 32.1 % 32.7 % 32.8 % 32.5 % Concent (32.0-36.0) (32.0-36.0) (32.0-36.0) (32.0-36.0) Red Cell Distribution Width 19.1 % 19.0 % 19.1 % 19.3 % (11.6-17.2) (11.6-17.2) (11.6-17.2) (11.6-17.2) Platelet Count 301 TH/MM3 302 TH/MM3 266 TH/MM3 250 TH/MM3 (150-450) (150-450) (150-450) (150-450) Mean Platelet Volume 7.0 FL 7.1 FL 7.1 FL 7.3 FL (7.0-11.0) (7.0-11.0) (7.0-11.0) (7.0-11.0) Neutrophils (%) (Auto) 96.3 % 95.0 % 94.7 % 93.7 % (16.0-70.0) (16.0-70.0) (16.0-70.0) (16.0-70.0) Lymphocytes (%) (Auto) 0.6 % 0.9 % 0.8 % 1.0 % (9.0-44.0) (9.0-44.0) (9.0-44.0) (9.0-44.0) Monocytes (%) (Auto) 2.7 % (0.0-8.0) 4.0 % (0.0-8.0) 4.0 % (0.0-8.0) 4.9 % (0.0- 8.0) Eosinophils (%) (Auto) 0.0 % (0.0-4.0) 0.0 % (0.0-4.0) 0.0 % (0.0-4.0) 0.0 % ( 0.0-4.0) Basophils (%) (Auto) 0.4 % (0.0-2.0) 0.1 % (0.0-2.0) 0.5 % (0.0-2.0) 0.4 % (0.0- 2.0) Neutrophils # (Auto) 39.8 TH/MM3 40.8 TH/MM3 37.7 TH/MM3 34.5 TH/MM3 (1.8-7.7) (1.8-7.7) (1.8-7.7) (1.8-7.7) Lymphocytes # (Auto) 0.2 TH/MM3 0.4 TH/MM3 0.3 TH/MM3 0.4 TH/MM3 (1.0-4.8) (1.0-4.8) (1.0-4.8) (1.0-4.8) Monocytes # (Auto) 1.1 TH/MM3 1.7 TH/MM3 1.6 TH/MM3 1.8 TH/MM3 (0-0.9) (0-0.9) (0-0.9) (0-0.9) Eosinophils # (Auto) 0.0 TH/MM3 0.0 TH/MM3 0.0 TH/MM3 0.0 TH/MM3 (0-0.4) (0-0.4) (0-0.4) (0-0.4) Basophils # (Auto) 0.1 TH/MM3 0.0 TH/MM3 0.2 TH/MM3 0.1 TH/MM3 (0-0.2) (0-0.2) (0-0.2) (0-0.2) CBC Comment AUTO DIFF AUTO DIFF AUTO DIFF AUTO DIFF Differential Total Cells 100 100 100 100 Counted Neutrophils % (Manual) 97 % (16-70) 85 % (16-70) 84 % (16-70) 90 % (16-70) Lymphocytes % 1 % (9-44) 4 % (9-44) Neutrophils # (Manual) 41.0 TH/MM3 40.0 TH/MM3 39.4 TH/MM3 35.3 TH/MM3 (1.8-7.7) (1.8-7.7) (1.8-7.7) (1.8-7.7) Myelocytes 2 % (0-0) 1 % (0-0) Differential Comment FINAL DIFF FINAL DIFF FINAL DIFF FINAL DIFF MANUAL MANUAL MANUAL MANUAL Platelet Estimate NORMAL NORMAL NORMAL NORMAL (NORMAL) (NORMAL) (NORMAL) (NORMAL) Platelet Morphology Comment NORMAL NORMAL NORMAL NORMAL (NORMAL) (NORMAL) (NORMAL) (NORMAL) Ovalocytes 1+ (NORMAL) 1+ (NORMAL) 1+ (NORMAL) Sodium Level 140 MEQ/L 141 MEQ/L 141 MEQ/L 143 MEQ/L (136-145) (136-145) (136-145) (136-145) Potassium Level 3.8 MEQ/L 2.9 MEQ/L 4.4 MEQ/L 3.0 MEQ/L (3.5-5.1) (3.5-5.1) (3.5-5.1) (3.5-5.1) Chloride Level 104 MEQ/L 103 MEQ/L 108 MEQ/L 108 MEQ/L (98-107) (98-107) (98-107) (98-107) Carbon Dioxide Level 28.2 MEQ/L 29.3 MEQ/L 25.5 MEQ/L 24.9 MEQ/L (21.0-32.0) (21.0-32.0) (21.0-32.0) (21.0-32.0) Anion Gap 8 MEQ/L (5-15) 9 MEQ/L (5-15) 8 MEQ/L (5-15) 10 MEQ/L (5-15) Blood Urea Nitrogen 12 MG/DL (7-18) 14 MG/DL (7-18) 14 MG/DL (7-18) 13 MG/DL (7- 18) Creatinine 0.45 MG/DL 0.50 MG/DL 0.48 MG/DL 0.40 MG/DL (0.60-1.30) (0.60-1.30) (0.60-1.30) (0.60-1.30) Estimat Glomerular Filtration 187 ML/MIN 166 ML/MIN 174 ML/MIN 215 ML/MIN Rate (>89) (>89) (>89) (>89) Random Glucose 103 MG/DL 118 MG/DL 118 MG/DL 96 MG/DL (74-106) (74-106) (74-106) (74-106) Calcium Level 7.2 MG/DL 7.3 MG/DL 7.1 MG/DL 7.1 MG/DL (8.5-10.1) (8.5-10.1) (8.5-10.1) (8.5-10.1) Protein Corrected Calcium 8.3 MG/DL 8.6 MG/DL 8.4 MG/DL 8.4 MG/DL (8.5-10.1) (8.5-10.1) (8.5-10.1) (8.5-10.1) Magnesium Level 1.3 MG/DL 1.1 MG/DL 1.6 MG/DL 1.7 MG/DL (1.5-2.5) (1.5-2.5) (1.5-2.5) (1.5-2.5) Total Bilirubin 0.4 MG/DL 0.4 MG/DL 0.4 MG/DL (0.2-1.0) (0.2-1.0) (0.2-1.0) Aspartate Amino Transf 9 U/L (15-37) 5 U/L (15-37) 8 U/L (15-37) (AST/SGOT) Alanine Aminotransferase LESS THAN 6 LESS THAN 6 LESS THAN 6 (ALT/SGPT) U/L (12-78) U/L (12-78) U/L (12-78) Alkaline Phosphatase 84 U/L (45-117) 77 U/L (45-117) 76 U/L (45-117) Total Protein 5.0 GM/DL 4.8 GM/DL 4.8 GM/DL 4.8 GM/DL (6.4-8.2) (6.4-8.2) (6.4-8.2) (6.4-8.2) Albumin 2.2 GM/DL 2.1 GM/DL 1.8 GM/DL (3.4-5.0) (3.4-5.0) (3.4-5.0) Band Neutrophils % 6 % (0-6) 14 % (0-6) 6 % (0-6) Monocytes % 3 % (0-8) 1 % (0-8) 4 % (0-8) Metamyelocytes 1 % (0-1) 1 % (0-1) Keratocytes OCC (NORMAL) Acanthocytes OCC (NORMAL) Phosphorus Level 1.1 MG/DL 2.0 MG/DL (2.5-4.9) (2.5-4.9) Random Vancomycin Level 16.8 COMMENT 8.2 COMMENT Toxic Granulation 2+ (NORMAL) Test 11/23/16 11:30 Stool C. difficile Toxin (PCR) NEGATIVE (NEGATIVE) Stl C. difficile Toxin PRESUMPTIVE Epiderm 027 NEGATIVE (NEGATIVE) Result Diagram: 11/23/16 0345 11/23/16 0345 Microbiology Microbiology Date/Time Procedure Status Source Growth 11/21/16 10:30 Aerobic Blood Culture - Preliminary Resulted Blood Line NO GROWTH IN 2 DAYS 11/21/16 10:30 Anaerobic Blood Culture - Preliminary Resulted Blood Line NO GROWTH IN 2 DAYS 11/21/16 10:30 Aerobic Blood Culture - Preliminary Resulted Blood Peripheral NO GROWTH IN 2 DAYS 11/21/16 10:30 Anaerobic Blood Culture - Preliminary Resulted Blood Peripheral NO GROWTH IN 2 DAYS 11/21/16 10:30 Wound Culture - Preliminary Resulted Catheter Tip Central Venous Line NO GROWTH IN 48 HOURS. 11/21/16 10:30 Fungal Culture Received Catheter Tip Central Venous Line Pending Imaging Last Impressions Chest X-Ray 11/23/16 0000 Signed Impressions: Service Date/Time: November 12:24 - CONCLUSION: 1. Small bore chest tube on the left. No pneumothorax. 2. Interval clearing of the pulmonary parenchyma compared to previous. Constantino Huynh MD Chest CT 11/12/16 0000 Signed Impressions: Service Date/Time: Saturday, November 12, 2016 11:23 - CONCLUSION: 1. Bilateral pleural effusions left greater than right. Bilateral dependent parenchymal lung opacity indicating atelectasis. 2. Decrease in size of right hilar and mediastinal mass/enlarged lymph nodes. Prashant Valdez MD Procedures Thoracentesis and thoracostomy, left chest . Assessment and Plan Disease Oriented Problem List: (1) septic shock / UTI / bacteremia (2) hypoxic respiratory failure (3) metastatic adenocarcinoma of lung, s/p radiation and chemotherapy (4) homelessness (5) Pleural effusions, s/p thoracentesis and thoracostomy (6) malnutrition, failure to thrive (7) history of C. 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 They have 2 children locally. Spiritual: He says he is not spiritual or faith, and he does not desire leaf sorter visits. Legal: The patient has capacity for decision-making at this time. When he loses that capacity in the upcoming days, his will be his proxy decision maker. Ethical issues impacting care: None. . Important Contacts Spouse: Tala Trujillo [phone], but she is almost always at the bedside and staying overnight in the [facility] [place] essentially [place] . Prognosis The patient is terminal. He likely has just days or weeks to live. . Code Status: No Code Plan * DO NOT RESUSCITATE - per request of patient and spouse 11/16/16. * DECISION-MAKING: The patient has capacity for decision-making at this time. When he loses that capacity in the upcoming days, his will be his proxy decision maker. * Previous Discussion The patient says that he understands that he is terminal, but he does not want to "give up." He tells me that his oncologist came by 11/17 and informed him that he was too weak to get any more chemotherapy. The patient says "I am stubborn, I am going to get stronger." I told him that, with advanced cancer, he will not have improving strength, and in fact will continue to decline. He says, "I know that's what they say, but I am stubborn. " The patient's says she supports her 's decisions, and they do not want hospice services at this time. I told him that usually, in advanced cancer patients, life is not shortened by engaging hospice services; he says "not now.". * Goals of care discussion today (11/23/2016)_ Declines Hospice services at the current time. * SYMPTOMS: The patient still has some dyspnea, although that has improved. * Hospice will continue to follow. * Palliative Care as well, will continue to follow the patient during this hospitalization. I suspect pt will not change and the decision to focus on just comfort measures only will be with spouse. . Shahzad Van MD Nov 23, 2016 16:03
--- NOTE | 2016-11-23 17:25 | HHI.PR ---
Subjective Remarks Resting today. Chest tube on left. O2 sat 96 on 2 l. No fever. On Antibiotics per ID Objective Vital Signs Date Time Temp Pulse Resp B/P Pulse Ox O2 Delivery O2 Flow Rate FiO2 11/23/16 16:58 82 11/23/16 16:00 100 Nasal Cannula 2.00 11/23/16 12:00 100 Nasal Cannula 2.00 11/23/16 12:00 85 11/23/16 10:00 80 11/23/16 08:42 100 Nasal Cannula 2.00 11/23/16 08:00 99 Nasal Cannula 2.00 11/23/16 08:00 80 11/23/16 08:00 84 11/23/16 06:00 80 11/23/16 04:00 99 Nasal Cannula 2.00 11/23/16 04:00 76 11/23/16 04:00 98.4 76 19 126/73 99 11/23/16 02:00 75 11/23/16 00:00 97 Nasal Cannula 2.00 11/23/16 00:00 98.6 81 21 122/69 97 11/23/16 00:00 81 11/22/16 22:00 82 11/22/16 20:00 98.3 86 20 137/79 99 11/22/16 20:00 86 11/22/16 20:00 99 Nasal Cannula 2.00 11/22/16 19:25 98 Nasal Cannula 2.00 11/22/16 18:00 84 I/O 11/22/16 11/22/16 11/22/16 11/23/16 11/23/16 11/23/16 07:00 15:00 23:00 07:00 15:00 23:00 Intake Total 707 ml 1083 ml 931 ml 276 ml 1190 ml Output Total 200 ml 500 ml 400 ml 250 ml 400 ml Balance 507 ml 583 ml 531 ml 26 ml 790 ml Intake Oral 480 ml 100 ml 225 ml IV Total 707 ml 1083 ml 451 ml 176 ml 965 ml Output Urine Total 200 ml 475 ml 400 ml 250 ml 400 ml Chest Tube Drainage Total 0 ml 25 ml 0 ml # Bowel Movements 0 1 0 1 1 Result Diagram: 11/23/16 0345 11/23/16 0345 Objective Remarks GENERAL: This is a thinly built elderly man who is pale and and appears chronically ill. HEENT: Head normocephalic. Pupils are reactive. Tongue moist. Throat is dry. Nasal mucosa is clear. NECK: Supple. No bruits or thyroid enlargement. CHEST: Decreased breath sounds at the bases, mostly the right base with occ crackles at the lung bases. HEART: The heart sounds are irregular, S1 and S2, no murmur, no S3. ABDOMEN: Soft, nontender. No organomegaly. Bowel sounds are active. EXTREMITIES: Decreased peripheral pulses.Edema ++ NEUROLOGIC: Reflexes are 1+. The patient does have weakness of the lower extremities with some muscle wasting. SKIN: Skin ulcerations. MENTAL STATUS: Mentation is normal. The patient is alert and cooperative. Assessment and Plan Assessment and Plan IMPRESSION 1. Chronic right basilar atelectasis with pleural effusion. 2. Adenocarcinoma of the right lung with metastatic disease. 3. Status post chemotherapy and radiation therapy. 4. History of C. diff colitis. 5. History of coronary artery disease. 6. Hypertension. Plan : 1. O2 at 2 L. 2. IS q3h at bedside. 3. Chest tube to Drainage and clamp in am 4. Cont Antibiotics Cefipime /Flagyl/Zithromax 5. prednisone 20 mg daily. 6. Daiana brown qid. Rubia Lora MD Nov 23, 2016 17:25
--- NOTE | 2016-11-23 21:36 | PD.ONC.PN ---
Subjective Subjective Remarks no complaints/resting comfortable no fevers/chills no bleeding appetite is poor Objective Data Date Time Temp Pulse Resp B/P Pulse Ox O2 Delivery O2 Flow Rate FiO2 11/23/16 18:00 84 11/23/16 16:58 82 11/23/16 16:00 98.4 78 20 151/80 100 11/23/16 16:00 100 Nasal Cannula 2.00 11/23/16 12:00 100 Nasal Cannula 2.00 11/23/16 12:00 85 11/23/16 12:00 98.5 80 20 151/82 100 11/23/16 10:00 80 11/23/16 08:42 100 Nasal Cannula 2.00 11/23/16 08:00 99 Nasal Cannula 2.00 11/23/16 08:00 80 11/23/16 08:00 98.9 77 20 131/74 100 11/23/16 08:00 84 11/23/16 06:00 80 11/23/16 04:00 99 Nasal Cannula 2.00 11/23/16 04:00 76 11/23/16 04:00 98.4 76 19 126/73 99 11/23/16 02:00 75 11/23/16 00:00 97 Nasal Cannula 2.00 11/23/16 00:00 98.6 81 21 122/69 97 11/23/16 00:00 81 11/22/16 22:00 82 11/23/16 11/23/16 11/23/16 06:59 14:59 22:59 Intake Total 276 ml 1190 ml Output Total 250 ml 400 ml Balance 26 ml 790 ml Result Diagram: 11/23/1634411/23/162024 Laboratory Results Laboratory Tests Test 11/23/16 11/23/16 11/23/16 11/23/16 03:45 11:30 20:15 20:25 White Blood Count 36.8 TH/MM3 Red Blood Count 3.09 MIL/MM3 Hemoglobin 8.9 GM/DL Hematocrit 27.5 % Mean Corpuscular Volume 88.8 FL Mean Corpuscular Hemoglobin 28.9 PG Mean Corpuscular Hemoglobin 32.5 % Concent Red Cell Distribution Width 19.3 % Platelet Count 250 TH/MM3 Mean Platelet Volume 7.3 FL Neutrophils (%) (Auto) 93.7 % Lymphocytes (%) (Auto) 1.0 % Monocytes (%) (Auto) 4.9 % Eosinophils (%) (Auto) 0.0 % Basophils (%) (Auto) 0.4 % Neutrophils # (Auto) 34.5 TH/MM3 Lymphocytes # (Auto) 0.4 TH/MM3 Monocytes # (Auto) 1.8 TH/MM3 Eosinophils # (Auto) 0.0 TH/MM3 Basophils # (Auto) 0.1 TH/MM3 CBC Comment AUTO DIFF Differential Total Cells 100 Counted Neutrophils % (Manual) 90 % Band Neutrophils % 6 % Monocytes % 4 % Neutrophils # (Manual) 35.3 TH/MM3 Differential Comment FINAL DIFF MANUAL Toxic Granulation 2+ Platelet Estimate NORMAL Platelet Morphology Comment NORMAL Ovalocytes 1+ Sodium Level 143 MEQ/L Potassium Level 3.0 MEQ/L 3.5 MEQ/L Chloride Level 108 MEQ/L Carbon Dioxide Level 24.9 MEQ/L Anion Gap 10 MEQ/L Blood Urea Nitrogen 13 MG/DL Creatinine 0.40 MG/DL Estimat Glomerular Filtration 215 ML/MIN Rate Random Glucose 96 MG/DL Calcium Level 7.1 MG/DL Protein Corrected Calcium 8.4 MG/DL Phosphorus Level 2.0 MG/DL 3.1 MG/DL Magnesium Level 1.7 MG/DL Total Bilirubin 0.4 MG/DL Aspartate Amino Transf 8 U/L (AST/SGOT) Alanine Aminotransferase LESS THAN 6 U/L (ALT/SGPT) Alkaline Phosphatase 76 U/L Total Protein 4.8 GM/DL Albumin 1.8 GM/DL Random Vancomycin Level 8.2 COMMENT Stool C. difficile Toxin (PCR) NEGATIVE Stl C. difficile Toxin PRESUMPTIVE Epiderm 027 NEGATIVE Culture Results Microbiology Date/Time Procedure Status Source Growth 11/21/16 10:30 Aerobic Blood Culture - Preliminary Resulted Blood Line NO GROWTH IN 2 DAYS 11/21/16 10:30 Anaerobic Blood Culture - Preliminary Resulted Blood Line NO GROWTH IN 2 DAYS 11/21/16 10:30 Aerobic Blood Culture - Preliminary Resulted Blood Peripheral NO GROWTH IN 2 DAYS 11/21/16 10:30 Anaerobic Blood Culture - Preliminary Resulted Blood Peripheral NO GROWTH IN 2 DAYS 11/21/16 10:30 Wound Culture - Preliminary Resulted Catheter Tip Central Venous Line NO GROWTH IN 48 HOURS. 11/21/16 10:30 Fungal Culture Received Catheter Tip Central Venous Line Pending Imaging Studies Last 24 hours Impressions Chest X-Ray 11/23/16 0000 Signed Impressions: Service Date/Time: November 12:24 - CONCLUSION: 1. Small bore chest tube on the left. No pneumothorax. 2. Interval clearing of the pulmonary parenchyma compared to previous. Constantino Huynh MD Administered Medications Medications (Trade) Dose Ordered Sig/Elvia Route PRN Reason Start Time Stop Time Status Last Admin Dose Admin IV Flush (NS Flush) 2 ml UNSCH PRN IV FLUSH FLUSH AFTER USING IV ACCESS 11/12/16 11:00 11/19/16 09:00 IV Flush (NS Flush) 2 ml BID IV FLUSH 11/12/16 21:00 11/22/16 09:46 Acetaminophen (Tylenol) 650 mg Q6H PRN PO PAIN 1-10 AND/OR FEVER >101F 11/12/16 12:00 11/13/16 21:07 Pantoprazole Sodium (Protonix Inj) 40 mg DAILY IV 11/13/16 09:00 11/23/16 09:00 Tiotropium Tunica (Spiriva Inh) 18 mcg DAILY INH 11/13/16 09:00 11/22/16 09:47 Clopidogrel Bisulfate 75 mg 75 mg DAILY PO 11/13/16 09:00 11/23/16 09:00 Norepinephrine Bitartrate (Levophed-Dextrose Drip) 250 ml @ 0 mls/hr TITRATE IV 11/12/16 13:30 11/12/16 18:48 Miscellaneous Information Patient in critical care unit? Ass... [id number] XX 11/12/16 18:30 11/12/16 18:30 Potassium Chloride 100 ml @ 50 mls/hr Q2H PRN IV For Potassium 2.8 - 3.2 mEq/L 11/13/16 09:45 11/20/16 16:47 Potassium Chloride 100 ml @ 50 mls/hr Q2H PRN IV For Potassium 2.8 - 3.2 mEq/L 11/13/16 09:45 11/21/16 12:42 Potassium Chloride 100 ml @ 50 mls/hr Q2H PRN IV For Potassium 3.3 - 3.5 mEq/L 11/13/16 09:45 11/20/16 06:26 Magnesium Sulfate 4 gm/Sodium Chloride 100 ml @ 50 mls/hr UNSCH PRN IV For Magnesium 0.9 - 1.1 mg/dL 11/13/16 09:45 11/19/16 09:02 Magnesium Sulfate 2 gm/Sodium Chloride 100 ml @ 50 mls/hr UNSCH PRN IV For Magnesium 1.2 - 1.6 mg/dL 11/13/16 09:45 11/22/16 20:43 Sodium Phosphate 30 mmol/Sodium Chloride 250 ml @ 42 mls/hr UNSCH PRN IV For Phosphorus < 2.5 mg/dL 11/13/16 09:45 11/22/16 09:22 Potassium Phosphate/Sodium Chloride (Potassium Phosphate Inj/NS 250 ml Inj) 260 ml @ 42 mls/hr UNSCH PRN IV SEE LABEL COMMENTS 11/13/16 09:45 11/13/16 13:05 Insulin Human Regular (NovoLIN R SUPPLEMENTAL SCALE) 1 Q6H SQ 11/13/16 10:15 11/21/16 22:12 Metronidazole 500 mg 500 mg Q8HR PO 11/14/16 14:00 11/23/16 14:00 Phenylephrine HCl/ Dextrose (Neosynephrine Inj/D5W 500 ml Inj) 500 ml @ 0 mls/hr TITRATE IV 11/14/16 17:15 11/15/16 12:54 Temazepam (Restoril) 7.5 mg HS PRN PO SLEEP 11/15/16 22:45 11/23/16 00:57 Aspirin 81 mg 81 mg DAILY PO 11/16/16 09:00 11/23/16 09:00 Vasopressin 40 units/Dextrose 100 ml @ 0 mls/hr Q0M IV 11/18/16 14:45 11/18/16 14:59 Cefepime HCl/ Sodium Chloride (Maxipime Inj/NS Inj) 100 ml @ 200 mls/hr Q12H IV 11/18/16 18:00 11/23/16 18:00 Enoxaparin Sodium (Lovenox Inj) 60 mg Q12H SQ 11/20/16 16:00 11/23/16 16:00 Enalapril Maleate (Vasotec) 5 mg DAILY PO 11/23/16 09:00 11/23/16 09:00 Metoprolol Tartrate (Lopressor) 25 mg Q12HR PO 11/22/16 21:00 11/23/16 09:00 Prednisone 20 mg 20 mg DAILY PO 11/23/16 09:00 11/23/16 09:00 Potassium Chloride/Sodium Chloride (NS + KCl 20 Meq Inj) 1,000 ml @ 100 mls/hr Q10H IV 11/23/16 08:00 11/23/16 08:00 Amiodarone HCl (Cordarone) 200 mg DAILY PO 11/23/16 09:00 11/23/16 09:00 Objective Remarks GENERAL: acute ill/deconditioned SKIN: Warm and dry. NECK: Supple, trachea midline. No JVD or lymphadenopathy. LYMPHATIC: No adenopathy. CARDIOVASCULAR: Regular rate and rhythm without murmurs. RESPIRATORY: b/l scattered rhonchi GASTROINTESTINAL: Abdomen soft, non-tender, nondistended. EXTREMITIES: No cyanosis, or edema. Assessment/Plan Problem List: (1) Septic shock Status: Acute Plan: --on IV abx --BC, 11/13 +S. Aureus --CT chest showed bilateral pleural effusions, left greater than right. 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 --was some improvement of his tumor bulk with concurrent chemotherapy and radiation. (3) Pleural effusion Status: Acute Plan: --s/p pigtail chest tube placement, 11/18, cytology pending --could be cardiac vs malignant -- If the effusions are malignant, then he will have Stage IV disease. (4) Normocytic anemia Status: Acute Plan: -- recommend keeping his hemoglobin greater than 8. (5) Afib Status: Chronic Plan: --on Lovenox 60mg SQ BID --cardiology following. --on Amiodarone + Lopressor Assessment 65y/o with NSCLC admitted with sepsis. h/o tobacco abuse. COPD. Hypertension. Hyperlipidemia. 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 Pulmonary embolism. Peripheral vascular disease status post revascularization of the lower extremities. History of coronary artery disease/[place], status post cardiac catheterization with PCI and drug eluding stent. Plan 1. ongoing supportive care. 2. Not a candidate for chemotherapy for Lung cancer 3. discussed with patient Rj Monteiro MD Nov 23, 2016 21:36
[2016-11-24] VITALS (13 sets, daily range): BP systolic 91–122; BP diastolic 59–75; PULSE 67–87; RESP 16–21; TEMP 96.7–98.3; O2SAT 96–100
[2016-11-24] MEDS: NS + KCL 20 MEQ INJ 1,000 ML IV SCH ×2 (04:00→22:44)
[2016-11-24] MEDS: INSULIN NovoLIN REGULAR SUPPLEMENTAL SCALE SQ SCH ×4 (04:15→22:15)
[2016-11-24] MEDS: ENOXAPARIN SODIUM 60 MG/0.6 ML SYRINGE SQ SCH ×2 (05:18→16:00)
[2016-11-24] MEDS: metroNIDAZOLE 500 MG TAB PO SCH ×3 (05:18→20:28)
[2016-11-24] MEDS: CEFEPIME INJ 2,000 MG in SODIUM CHLORIDE 0.9% INJ 100 ML IV SCH ×2 (05:19→18:00)
[2016-11-24 06:54] LABS: ALKALINE PHOSPHATASE 80 U/L (45-117); ALT (GPT) LESS THAN 6 U/L (12-78); ANION GAP 9 MEQ/L (5-15); AST (GOT) 8 U/L (15-37); BICARBONATE 24.4 MEQ/L (21.0-32.0); BLOOD UREA NITROGEN 14 MG/DL (7-18); CALCIUM-PROTEIN CORRECTED 7.9 MG/DL (8.5-10.1); CHLORIDE 109 MEQ/L (98-107); GLOMERULAR FILTRATION RATE 209 ML/MIN (>89); MAGNESIUM 1.4 MG/DL (1.5-2.5); POTASSIUM 3.5 MEQ/L (3.5-5.1); SODIUM (NA) 142 MEQ/L (136-145); TOTAL BILIRUBIN ADULT 0.3 MG/DL (0.2-1.0)
[2016-11-24] MEDS: CLOPIDOGREL 75 MG TAB PO SCH (09:00)
[2016-11-24] MEDS: ASPIRIN EC 81 MG TABEC PO SCH (09:00)
[2016-11-24] MEDS: ENALAPRIL MALEATE 2.5 MG TAB PO SCH (09:00)
[2016-11-24] MEDS: TIOTROPIUM BROMIDE 18 MCG INH INH SCH (09:00)
[2016-11-24] MEDS: SODIUM CHLORIDE 0.9% FLUSH 5 ML FLUSH IV FLUSH SCH ×2 (09:00→20:29)
[2016-11-24] MEDS: predniSONE 20 MG TAB PO SCH (09:00)
[2016-11-24] MEDS: AMIODARONE 200 MG TAB PO SCH (09:00)
[2016-11-24] MEDS: PANTOPRAZOLE SODIUM 40 MG VIAL IV SCH (09:00)
[2016-11-24] MEDS: METOPROLOL TARTRATE 25 MG TAB PO SCH ×2 (09:00→20:29)
[2016-11-24] MEDS ORDERED: PHARMACY ORDERED LAB XX ONE (09:45)
[2016-11-24] MEDS: MAGNESIUM SULFATE 1 GM PREMIX 100 ML IV SCH ×2 (11:00→12:00)
[2016-11-24 11:21] LABS: HEMATOCRIT 27.8 % (39.0-51.0); HEMO FLAGS AUTO DIFF; MEAN CELL VOLUME 87.7 FL (80.0-100.0); MEAN CORPUSCULAR HEMOGLOBIN 28.4 PG (27.0-34.0); MEAN CORPUSCULAR HGB CONC 32.3 % (32.0-36.0); PLATELET COUNT 258 TH/MM3 (150-450); RED BLOOD COUNT 3.17 MIL/MM3 (4.50-5.90); RED CELL DISTRIBUTION WIDTH 18.8 % (11.6-17.2); WHITE BLOOD COUNT 48.6 TH/MM3 (4.0-11.0)
[2016-11-24 11:58] LABS: NEUTROPHIL # MANUAL DIFF 43.7 TH/MM3 (1.8-7.7); POLYS (SEG NEUTROPHILS) 90 % (16-70); WBC DIFF SAMPLE 100
[2016-11-24 11:59] LABS: ACANTHOCYTES OCC (NORMAL); OVALOCYTES 1+ (NORMAL); PLATELET ESTIMATE SMEAR NORMAL (NORMAL); PLATELET MORPHOLOGY NORMAL (NORMAL); SCAN/DIFF FINAL DIFF MANUAL
[2016-11-24] MEDS ORDERED: POTASSIUM PHOSPHATE INJ 15 MMOL in SODIUM CHLORIDE 0.9% INJ 150 ML IV ONE (12:00)
--- NOTE | 2016-11-24 17:44 | HHI.PR ---
Subjective Remarks This is a 64-year-old male with history of COPD, hypertension, coronary artery disease, STEMI on 07/08/16 s/p PCI and DELMY (Dr. Crouch), history of C. difficile colitis, non-small cell lung cancer receiving chemoradiation per Dr. Monteiro, history of pulmonary embolism on Lovenox who was admitted to hospital recently from 07/08-08/31/16 with above diagnoses. During that admission he was noted to have a mediastinal and lung mass which was invading bilateral mainstem bronchi- subsequently diagnosed as a non-small cell lung cancer(adenocarcinoma). He had complete atelectasis of the right lung last admission which required bronchoscopy 2. With chemoradiation obstruction improved with resolution of atelectasis. Today patient was brought from the [facility] for fever, hypotension, confusion. Apparently patient was to be started on antibiotics for a UTI however prior to starting the antibiotics, he was found to be profoundly hypotensive, confused and was sent to ER. The patient also was noted to have diarrhea. His initial systolic blood pressure was in the 70s, rectal temperature of 100.4 and also tachycardic with a heart rate in 100's. Source of infection seems to be UTI, though HCAP cannot be ruled out. X-ray and CT of the chest shows bilateral pleural effusions left larger than right associated with infiltrate/atelectasis. He has multiple skin ulcers including his sacral area and his bilateral ankles. Patient received 3 L normal saline bolus with improvement in blood pressure. Levophed ordered. I have started patient on stress dose steroids as he was receiving prednisone at the [facility] . Patient received Zosyn in the ED. I will place patient on cefepime, Flagyl (hx of C Diff) and IV vancomycin. Infectious disease consulted for septic shock in an immunocompromised patient. 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 11/13 Patient is on 35% VM, afebrile. Off Levophed 11/14 Patient was started on Cardizem drip 15mg/hr overnight in addition was given Lopressor 2.5mg IV x1 for tachycardia. Afebrile. On Heparin drip. s/p transfusion 1u PRBC for Hgb 6.9 now 8.1. 11/15 Patient is on Neosyn 40 mics, off vasopressin. He was given Amiodarone bolus overnight for Afib with RVR HR remains 120-130's. Afebrile. 11/16: Remains on Cardizem and amiodarone. Off vasopressors. Patient's CXR appears worse. He does not appear in distress. Palliative care consulted and family and patient will decide on hospice after d/w Dr. Monteiro 11/17: Bedside ultrasound shows fairly large left pleural effusion despite chest tube. Possibly loculated. We'll hold off thoracentesis to additional chest tube and the patient makes decisions about comfort measures versus aggressive care. Patient waiting to talk to Dr. Monteiro to decide on hospice 11/18: Patient declined hospice and wants to continue aggressive care at this time. White count has increased to 48.9 with 97% neutrophils, I have requested ID reevaluation. Large right pleural effusion drained today 1.2 L clear fluid. UO 4L in 24 hours 11/19/16: Patient had right thoracentesis yesterday 11/18 with 1.2 L pleural fluid removed. A new left pigtail chest tube was placed also yesterday 11/18 with 580 mL of slightly blood-tinged pleural fluid removal over 24 hours. Patient now on nasal cannula tolerating well. Left 32 Mongolian chest tube was removed today 11/20: Breathing more comfortably now. Large bore chest tube removed yesterday. No pneumothorax. WBC count slightly improved from 45.5 to 42.5 11/21 No acute events overnight. Patient is lying in bed in NAD. Afebrile. WBC 43 11/22 Patient is on 2L oxygen with good sats. Afebrile. WBC 39 today from 43. Awake and alert. 11/23 No acute events overnight. WBC trending down 36 today. Afebrile. 11/24 patient transferred to Hospitalist team for today. as per Infectious Disease specialist MSSA Bacteremia, MSSA in Urine, Pneumonia with Effusions, Proteus UTI, Prior history of Diarrhea, Discontinued Vancomycin, Discontinued Micafungin continued Cefepime and Flagyl by mouth, check C Diff PCR, Objective Vital Signs Date Time Temp Pulse Resp B/P Pulse Ox O2 Delivery O2 Flow Rate FiO2 11/24/16 16:00 81 11/24/16 16:00 96 Room Air 11/24/16 12:24 100 Nasal Cannula 2.00 11/24/16 12:00 97 Room Air 11/24/16 08:00 77 11/24/16 08:00 98 Room Air 11/24/16 06:00 80 11/24/16 04:00 100 Nasal Cannula 2.00 11/24/16 04:00 98.2 78 21 122/75 100 11/24/16 04:00 78 11/24/16 02:00 72 11/24/16 00:00 98.3 72 16 113/68 100 11/24/16 00:00 72 11/24/16 00:00 100 Nasal Cannula 2.00 11/23/16 22:00 80 11/23/16 20:00 98.1 83 18 116/73 100 11/23/16 20:00 83 11/23/16 20:00 100 Nasal Cannula 2.00 11/23/16 19:12 100 Nasal Cannula 2.00 11/23/16 18:00 84 I/O 11/23/16 11/23/16 11/23/16 11/24/16 11/24/16 11/24/16 07:00 15:00 23:00 07:00 15:00 23:00 Intake Total 276 ml 1190 ml 1523 ml 775 ml 1295 ml Output Total 250 ml 400 ml 500 ml 75 ml 110 ml Balance 26 ml 790 ml 1023 ml 700 ml 1185 ml Intake Oral 100 ml 225 ml 200 ml 100 ml 400 ml IV Total 176 ml 965 ml 1323 ml 675 ml 895 ml Output Urine Total 250 ml 400 ml 500 ml 75 ml 110 ml # Bowel Movements 1 1 1 0 1 Result Diagram: 11/24/16 1051 11/24/16 0551 Imaging Last Impressions Chest X-Ray 11/23/16 0000 Signed Impressions: Service Date/Time: November 12:24 - CONCLUSION: 1. Small bore chest tube on the left. No pneumothorax. 2. Interval clearing of the pulmonary parenchyma compared to previous. Constantino Huynh MD Chest CT 11/12/16 0000 Signed Impressions: Service Date/Time: Saturday, November 12, 2016 11:23 - CONCLUSION: 1. Bilateral pleural effusions left greater than right. Bilateral dependent parenchymal lung opacity indicating atelectasis. 2. Decrease in size of right hilar and mediastinal mass/enlarged lymph nodes. Prashant Valdez MD Procedures Thoracentesis, Pigtail, Chest tube placement. Other Results Laboratory Tests Test 2/11/20/16 11/20/16 11/21/16 04:00 05:45 12:00 05:30 Helmet Cells OCC Vancomycin Level Trough 26.1 MCG/ML Activated Partial 72.0 SEC Thromboplast Time Myelocytes 1 % Keratocytes OCC Test 11/22/16 11/23/16 11/23/16 11/24/16 05:16 03:45 11:30 05:51 Metamyelocytes 1 % Band Neutrophils % 6 % Toxic Granulation 2+ Random Vancomycin Level 8.2 COMMENT Stool C. difficile Toxin (PCR) NEGATIVE Stl C. difficile Toxin PRESUMPTIVE Epiderm 027 NEGATIVE Sodium Level 142 MEQ/L Potassium Level 3.5 MEQ/L Chloride Level 109 MEQ/L Carbon Dioxide Level 24.4 MEQ/L Anion Gap 9 MEQ/L Blood Urea Nitrogen 14 MG/DL Creatinine 0.41 MG/DL Estimat Glomerular Filtration 209 ML/MIN Rate Random Glucose 75 MG/DL Calcium Level 6.7 MG/DL Protein Corrected Calcium 7.9 MG/DL Phosphorus Level 2.1 MG/DL Magnesium Level 1.4 MG/DL Total Bilirubin 0.3 MG/DL Aspartate Amino Transf 8 U/L (AST/SGOT) Alanine Aminotransferase LESS THAN 6 U/L (ALT/SGPT) Alkaline Phosphatase 80 U/L Total Protein 4.7 GM/DL Albumin 1.7 GM/DL Test 11/24/16 10:51 White Blood Count 48.6 TH/MM3 Red Blood Count 3.17 MIL/MM3 Hemoglobin 9.0 GM/DL Hematocrit 27.8 % Mean Corpuscular Volume 87.7 FL Mean Corpuscular Hemoglobin 28.4 PG Mean Corpuscular Hemoglobin 32.3 % Concent Red Cell Distribution Width 18.8 % Platelet Count 258 TH/MM3 Mean Platelet Volume 7.1 FL Neutrophils (%) (Auto) % Lymphocytes (%) (Auto) % Monocytes (%) (Auto) % Eosinophils (%) (Auto) % Basophils (%) (Auto) % Neutrophils # (Auto) TH/MM3 Lymphocytes # (Auto) TH/MM3 Monocytes # (Auto) TH/MM3 Eosinophils # (Auto) TH/MM3 Basophils # (Auto) TH/MM3 CBC Comment AUTO DIFF Differential Total Cells 100 Counted Neutrophils % (Manual) 90 % Lymphocytes % 3 % Monocytes % 7 % Neutrophils # (Manual) 43.7 TH/MM3 Differential Comment FINAL DIFF MANUAL Platelet Estimate NORMAL Platelet Morphology Comment NORMAL Ovalocytes 1+ Acanthocytes OCC Hematology Comments Objective Remarks GENERAL: Patient is lying in be din NAD SKIN: Warm and dry. HEAD: Normocephalic. EYES: No scleral icterus. No injection or drainage. NECK: Supple, trachea midline. No JVD or lymphadenopathy. CARDIOVASCULAR: Regular rate and rhythm without murmurs, gallops, or rubs. RESPIRATORY: Breath sounds equal bilaterally. No accessory muscle use. GASTROINTESTINAL: Abdomen soft, non-tender, nondistended. MUSCULOSKELETAL: No cyanosis, or edema. BACK: Nontender without obvious deformity. No CVA tenderness. Neuro: Awake and alert Medications and IVs Current Medications Medications (Trade) Dose Ordered Sig/Elvia Route Start Time Stop Time Status Last Admin (NS Flush) 2 ml UNSCH PRN IV FLUSH 11/12/16 11:00 11/19/16 09:00 (NS Flush) 2 ml BID IV FLUSH 11/12/16 21:00 11/23/16 21:00 (Tylenol) 650 mg Q6H PRN PO 11/12/16 12:00 11/13/16 21:07 (Protonix Inj) 40 mg DAILY IV 11/13/16 09:00 11/24/16 09:00 (Spiriva Inh) 18 mcg DAILY INH 11/13/16 09:00 11/22/16 09:47 Clopidogrel Bisulfate 75 mg 75 mg DAILY PO 11/13/16 09:00 11/24/16 09:00 (Levophed-Dextrose Drip) 250 ml @ 0 mls/hr TITRATE IV 11/12/16 13:30 11/12/16 18:48 Miscellaneous Information Patient in critical care unit? Ass... Q361D XX 11/12/16 18:30 11/12/16 18:30 Potassium Chloride 100 ml @ 50 mls/hr Q2H PRN IV 11/13/16 09:45 11/20/16 16:47 (KCl 20 Meq Premix Inj) 100 ml @ 50 mls/hr Q2H PRN IV 11/13/16 09:45 11/21/16 12:42 Potassium Chloride 40 meq 40 meq UNSCH PRN PO/TUBE 11/13/16 09:45 Potassium Chloride 100 ml @ 25 mls/hr UNSCH PRN IV 11/13/16 09:45 Potassium Chloride 100 ml @ 50 mls/hr Q2H PRN IV 11/13/16 09:45 11/20/16 06:26 (Magnesium Sulfate Inj/NS Inj) 100 ml @ 50 mls/hr UNSCH PRN IV 11/13/16 09:45 11/19/16 09:02 Magnesium Oxide 800 mg 800 mg UNSCH PRN PO 11/13/16 09:45 (Magnesium Sulfate Inj/NS Inj) 100 ml @ 50 mls/hr UNSCH PRN IV 11/13/16 09:45 11/22/16 20:43 Potassium Phosphate 2000 mg 2,000 mg Q4H PRN PO 11/13/16 09:45 (Sodium Phosphate Inj/NS 250 ml Inj) 250 ml @ 42 mls/hr UNSCH PRN IV 11/13/16 09:45 11/22/16 09:22 (KCl 40 Meq/30 ml Liq) 40 meq UNSCH PRN PO/TUBE 11/13/16 09:45 Potassium Phosphate 2000 mg 2,000 mg UNSCH PRN PO/TUBE 11/13/16 09:45 (Potassium Phosphate Inj/NS 250 ml Inj) 260 ml @ 42 mls/hr UNSCH PRN IV 11/13/16 09:45 11/13/16 13:05 (D50w (Vial) Inj) 25 ml UNSCH PRN IV PUSH 11/13/16 10:15 (Glucagon Inj) 1 mg UNSCH PRN OTHER 11/13/16 10:15 (NovoLIN R SUPPLEMENTAL SCALE) 1 Q6H SQ 11/13/16 10:15 11/21/16 22:12 Metronidazole 500 mg 500 mg Q8HR PO 11/14/16 14:00 11/24/16 14:00 (Neosynephrine Inj/D5W 500 ml Inj) 500 ml @ 0 mls/hr TITRATE IV 11/14/16 17:15 11/15/16 12:54 (Brethine Inj) 1 mg UNSCH PRN SQ 11/14/16 16:15 (Restoril) 7.5 mg HS PRN PO 11/15/16 22:45 11/23/16 21:49 Aspirin 81 mg 81 mg DAILY PO 11/16/16 09:00 11/24/16 09:00 Vasopressin 40 units/Dextrose 100 ml @ 0 mls/hr Q0M IV 11/18/16 14:45 11/18/16 14:59 (Maxipime Inj/NS Inj) 100 ml @ 200 mls/hr Q12H IV 11/18/16 18:00 11/24/16 05:19 (Lovenox Inj) 60 mg Q12H SQ 11/20/16 16:00 11/24/16 16:00 (Pill Splitter) 1 ea UNSCH PRN OTHER 11/21/16 11:00 (Vasotec) 5 mg DAILY PO 11/23/16 09:00 11/24/16 09:00 (Lopressor) 25 mg Q12HR PO 11/22/16 21:00 11/24/16 09:00 Prednisone 20 mg 20 mg DAILY PO 11/23/16 09:00 11/24/16 09:00 (NS + KCl 20 Meq Inj) 1,000 ml @ 100 mls/hr Q10H IV 11/23/16 08:00 11/24/16 04:00 (Cordarone) 200 mg DAILY PO 11/23/16 09:00 11/24/16 09:00 A/P Assessment and Plan 1. Acute Metabolic Encephalopathy Resolved, as per high school library media specialist recommended to minimize sedation 2. Respiratory Insufficiency/Bilateral Pleural Effusion/Possible HCAP/COPD/ Adenocarcinoma of the lung/History of PE continue to keep oxygen saturation over 92%, Bronchodilator, Mucolytic, incentive spirometry, Steroids. Status post Chest tube placement 11/12 Exudate effusion per LDH criteria, removed 11/19/16 Cytology negative for malignancy, Status post right thoracentesis with 1.2 L fluid removed, Transudate status post Pigtail catheter drainage of Lower pleural effusion, 11/18/16. Removed Chest tube 3. Acute on chronic systolic heart failure, Ischemic cardiomyopathy, Atrial Fibrillation with RVR. 4. Hypotension/CAD/status post STEMI 07/08/16 with PCI/DELMY to D1, on Amiodarone 400 mg daily and Metoprolol 12.5 mg BID. EF 30-35% Continue Plavix. 5. Diarrhea/History of C Diff Colitis. On Protonix as per Manager Interventional. 6. Staph aureus Bacteremia/Severe Sepsis with worsening Leukocytosis, UTI/ Possible HCAP, History of C Diff Colitis Continue management as per ID specialist Doctor Marilu, IV Vancomycin, Cefepime, MIcafungin IV, Flagyl by Mouth Urine Proteus MIrabilis Staph species. 7. Non Small cell lung cancer/Pulmonary Emboli diagnosed 07/08/16. on Chemoradiation therapy by Doctor Monteiro weapons specialist following, Doctor Monteiro, Lovenox 60 mg q12 hours. -Bilateral lower extremity SCDs. On Lovenox 60 mg subcutaneous every 12, IV Protonix Following recommendations by PT/OT. Okay to Transfer to oncology floor. Discharge Planning Not yet cleared by counseling specialist for discharge. Chaka Haro MD Nov 24, 2016 17:44
[2016-11-24] MEDS: TEMAZEPAM 7.5 MG CAP PO PRN (22:43)
--- NOTE | 2016-11-24 23:46 | PD.ONC.PN ---
Subjective Subjective Remarks Patient seen earlier in the day. late note entry awake and alert. clinically looks much better today eating and siting up d/w window caser to oncology floor Objective Data Date Time Temp Pulse Resp B/P Pulse Ox O2 Delivery O2 Flow Rate FiO2 11/24/16 22:00 67 11/24/16 20:00 98.3 87 17 102/68 98 11/24/16 20:00 85 11/24/16 20:00 98 Room Air 11/24/16 19:41 98 21 11/24/16 18:11 86 11/24/16 16:00 81 11/24/16 16:00 98.0 77 21 112/59 100 11/24/16 16:00 96 Room Air 11/24/16 12:24 100 Nasal Cannula 2.00 11/24/16 12:00 97 Room Air 11/24/16 12:00 98.0 71 18 91/62 99 11/24/16 08:00 77 11/24/16 08:00 98 Room Air 11/24/16 06:00 80 11/24/16 04:00 100 Nasal Cannula 2.00 11/24/16 04:00 98.2 78 21 122/75 100 11/24/16 04:00 78 11/24/16 02:00 72 11/24/16 00:00 98.3 72 16 113/68 100 11/24/16 00:00 72 11/24/16 00:00 100 Nasal Cannula 2.00 11/24/16 11/24/16 11/24/16 07:00 15:00 23:00 Intake Total 775 ml 1295 ml 1440 ml Output Total 75 ml 110 ml 550 ml Balance 700 ml 1185 ml 890 ml Result Diagram: 11/24/16 1051 11/24/16 0551 Laboratory Results Laboratory Tests Test 11/24/16 11/24/16 05:51 10:51 Sodium Level 142 MEQ/L Potassium Level 3.5 MEQ/L Chloride Level 109 MEQ/L Carbon Dioxide Level 24.4 MEQ/L Anion Gap 9 MEQ/L Blood Urea Nitrogen 14 MG/DL Creatinine 0.41 MG/DL Estimat Glomerular Filtration 209 ML/MIN Rate Random Glucose 75 MG/DL Calcium Level 6.7 MG/DL Protein Corrected Calcium 7.9 MG/DL Phosphorus Level 2.1 MG/DL Magnesium Level 1.4 MG/DL Total Bilirubin 0.3 MG/DL Aspartate Amino Transf 8 U/L (AST/SGOT) Alanine Aminotransferase LESS THAN 6 U/L (ALT/SGPT) Alkaline Phosphatase 80 U/L Total Protein 4.7 GM/DL Albumin 1.7 GM/DL White Blood Count 48.6 TH/MM3 Red Blood Count 3.17 MIL/MM3 Hemoglobin 9.0 GM/DL Hematocrit 27.8 % Mean Corpuscular Volume 87.7 FL Mean Corpuscular Hemoglobin 28.4 PG Mean Corpuscular Hemoglobin 32.3 % Concent Red Cell Distribution Width 18.8 % Platelet Count 258 TH/MM3 Mean Platelet Volume 7.1 FL Neutrophils (%) (Auto) % Lymphocytes (%) (Auto) % Monocytes (%) (Auto) % Eosinophils (%) (Auto) % Basophils (%) (Auto) % Neutrophils # (Auto) TH/MM3 Lymphocytes # (Auto) TH/MM3 Monocytes # (Auto) TH/MM3 Eosinophils # (Auto) TH/MM3 Basophils # (Auto) TH/MM3 CBC Comment AUTO DIFF Differential Total Cells 100 Counted Neutrophils % (Manual) 90 % Lymphocytes % 3 % Monocytes % 7 % Neutrophils # (Manual) 43.7 TH/MM3 Differential Comment FINAL DIFF MANUAL Platelet Estimate NORMAL Platelet Morphology Comment NORMAL Ovalocytes 1+ Acanthocytes OCC Hematology Comments Administered Medications Medications (Trade) Dose Ordered Sig/Elvia Route PRN Reason Start Time Stop Time Status Last Admin Dose Admin IV Flush (NS Flush) 2 ml UNSCH PRN IV FLUSH FLUSH AFTER USING IV ACCESS 11/12/16 11:00 11/19/16 09:00 IV Flush (NS Flush) 2 ml BID IV FLUSH 11/12/16 21:00 11/24/16 20:29 Acetaminophen (Tylenol) 650 mg Q6H PRN PO PAIN 1-10 AND/OR FEVER >101F 11/12/16 12:00 11/13/16 21:07 Pantoprazole Sodium (Protonix Inj) 40 mg DAILY IV 11/13/16 09:00 11/24/16 09:00 Tiotropium [place] (Spiriva Inh) 18 mcg DAILY INH 11/13/16 09:00 11/22/16 09:47 Clopidogrel Bisulfate 75 mg 75 mg DAILY PO 11/13/16 09:00 11/24/16 09:00 Norepinephrine Bitartrate (Levophed-Dextrose Drip) 250 ml @ 0 mls/hr TITRATE IV 11/12/16 13:30 11/12/16 18:48 Miscellaneous Information Patient in critical care unit? Ass... Q361D XX 11/12/16 18:30 11/12/16 18:30 Insulin Human Regular (NovoLIN R SUPPLEMENTAL SCALE) 1 Q6H SQ 11/13/16 10:15 11/21/16 22:12 Metronidazole 500 mg 500 mg Q8HR PO 11/14/16 14:00 11/24/16 20:28 Phenylephrine HCl/ Dextrose (Neosynephrine Inj/D5W 500 ml Inj) 500 ml @ 0 mls/hr TITRATE IV 11/14/16 17:15 11/15/16 12:54 Temazepam (Restoril) 7.5 mg HS PRN PO SLEEP 11/15/16 22:45 11/24/16 22:43 Aspirin 81 mg 81 mg DAILY PO 11/16/16 09:00 11/24/16 09:00 Vasopressin 40 units/Dextrose 100 ml @ 0 mls/hr Q0M IV 11/18/16 14:45 11/18/16 14:59 Cefepime HCl/ Sodium Chloride (Maxipime Inj/NS Inj) 100 ml @ 200 mls/hr Q12H IV 11/18/16 18:00 11/24/16 18:00 Enoxaparin Sodium (Lovenox Inj) 60 mg Q12H SQ 11/20/16 16:00 11/24/16 16:00 Enalapril Maleate (Vasotec) 5 mg DAILY PO 11/23/16 09:00 11/24/16 09:00 Metoprolol Tartrate (Lopressor) 25 mg Q12HR PO 11/22/16 21:00 11/24/16 20:29 Prednisone 20 mg 20 mg DAILY PO 11/23/16 09:00 11/24/16 09:00 Potassium Chloride/Sodium Chloride (NS + KCl 20 Meq Inj) 1,000 ml @ 100 mls/hr Q10H IV 11/23/16 08:00 11/24/16 22:44 Amiodarone HCl (Cordarone) 200 mg DAILY PO 11/23/16 09:00 11/24/16 09:00 Objective Remarks GENERAL: acutely ill, SKIN: Warm and dry. NECK: Supple, trachea midline. No JVD or lymphadenopathy. LYMPHATIC: No adenopathy. CARDIOVASCULAR: Regular rate and rhythm without murmurs. RESPIRATORY: diffused scattered rhonchi GASTROINTESTINAL: Abdomen soft, non-tender, nondistended. EXTREMITIES: No cyanosis, or edema. Assessment/Plan Problem List: (1) Septic shock Status: Acute Plan: --on IV abx --BC, 11/13 +S. Aureus --CT chest showed bilateral pleural effusions, left greater than right. 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 --was some improvement of his tumor bulk with concurrent chemotherapy and radiation. (3) Pleural effusion Status: Acute Plan: --s/p pigtail chest tube placement, 11/18, cytology pending --could be cardiac vs malignant -- If the effusions are malignant, then he will have Stage IV disease. (4) Normocytic anemia Status: Acute Plan: -- recommend keeping his hemoglobin greater than 8. (5) Afib Status: Chronic Plan: --on Lovenox 60mg SQ BID --cardiology following. --on Amiodarone + Lopressor Assessment 65y/o with NSCLC admitted with sepsis. h/o tobacco abuse. COPD. Hypertension. Hyperlipidemia. 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 Pulmonary embolism. Peripheral vascular disease status post revascularization of the lower extremities. History of coronary artery disease/[place], status post cardiac catheterization with PCI and drug eluding stent. Plan 1. Anemia stable-- 2/2 to chemotherapy/illnes--No transfusion today. check stool heme-occult 2. Hypomagnesemia/Hypophosphatemia: replace mag and phosph 3. MSSA bactremia/HCAP; on abx per ID 4. Malnutrition: encourage oral intake. ensure tid with meals 5. Lung Cancer: not a candidate for treatment at this time. Transfer to Oncology floor. d/w RN Discussed with patient and . Rj Monteiro MD Nov 24, 2016 23:46
[2016-11-25] VITALS (9 sets, daily range): BP systolic 100–164; BP diastolic 65–89; PULSE 68–90; RESP 16–22; TEMP 95.5–98.2; O2SAT 93–99
[2016-11-25] MEDS: INSULIN NovoLIN REGULAR SUPPLEMENTAL SCALE SQ SCH ×4 (04:15→21:48)
[2016-11-25] MEDS: ENOXAPARIN SODIUM 60 MG/0.6 ML SYRINGE SQ SCH ×2 (04:16→15:40)
[2016-11-25] MEDS: CEFEPIME INJ 2,000 MG in SODIUM CHLORIDE 0.9% INJ 100 ML IV SCH ×2 (06:03→18:00)
[2016-11-25] MEDS: metroNIDAZOLE 500 MG TAB PO SCH ×3 (06:04→21:48)
[2016-11-25 07:21] LABS: HEMATOCRIT 27.9 % (39.0-51.0); MEAN CELL VOLUME 88.7 FL (80.0-100.0); MEAN CORPUSCULAR HEMOGLOBIN 28.3 PG (27.0-34.0); MEAN CORPUSCULAR HGB CONC 31.9 % (32.0-36.0); PLATELET COUNT 244 TH/MM3 (150-450); RED BLOOD COUNT 3.15 MIL/MM3 (4.50-5.90); RED CELL DISTRIBUTION WIDTH 19.2 % (11.6-17.2); WHITE BLOOD COUNT 37.4 TH/MM3 (4.0-11.0)
[2016-11-25 07:31] LABS: REVIEW FLAG FINAL
[2016-11-25] MEDS ORDERED: POTASSIUM PHOSPHATE INJ 21 MMOL in SODIUM CHLORIDE 0.9% INJ 150 ML IV ONE (08:00)
[2016-11-25 09:40] LABS: BICARBONATE 22.9 MEQ/L (21.0-32.0); MAGNESIUM 1.4 MG/DL (1.5-2.5); POTASSIUM 3.4 MEQ/L (3.5-5.1)
[2016-11-25] MEDS: PANTOPRAZOLE SODIUM 40 MG VIAL IV SCH (10:18)
[2016-11-25] MEDS: METOPROLOL TARTRATE 25 MG TAB PO SCH ×3 (10:18→21:48)
[2016-11-25] MEDS: CLOPIDOGREL 75 MG TAB PO SCH ×2 (10:18→10:31)
[2016-11-25] MEDS: ASPIRIN EC 81 MG TABEC PO SCH ×2 (10:18→10:31)
[2016-11-25] MEDS: predniSONE 20 MG TAB PO SCH ×2 (10:18→10:31)
[2016-11-25] MEDS: AMIODARONE 200 MG TAB PO SCH ×2 (10:19→10:31)
[2016-11-25] MEDS: SODIUM CHLORIDE 0.9% FLUSH 5 ML FLUSH IV FLUSH SCH ×2 (10:33→21:00)
[2016-11-25] MEDS: TIOTROPIUM BROMIDE 18 MCG INH INH SCH (12:49)
[2016-11-25] MEDS: NS + KCL 20 MEQ INJ 1,000 ML IV SCH (12:54)
--- NOTE | 2016-11-25 17:17 | HHI.PR ---
Subjective Remarks This is a 64-year-old male with history of COPD, hypertension, coronary artery disease, STEMI on 07/08/16 s/p PCI and DELMY (Dr. Crouch), history of C. difficile colitis, non-small cell lung cancer receiving chemoradiation per Dr. Monteiro, history of pulmonary embolism on Lovenox who was admitted to hospital recently from 07/08-08/31/16 with above diagnoses. During that admission he was noted to have a mediastinal and lung mass which was invading bilateral mainstem bronchi- subsequently diagnosed as a non-small cell lung cancer(adenocarcinoma). He had complete atelectasis of the right lung last admission which required bronchoscopy 2. With chemoradiation obstruction improved with resolution of atelectasis. Today [facility] for fever, hypotension, confusion. Apparently patient was to be started on antibiotics for a UTI however prior to starting the antibiotics, he was found to be profoundly hypotensive, confused and was sent to ER. The patient also was noted to have diarrhea. His initial systolic blood pressure was in the 70s, rectal temperature of 100.4 and also tachycardic with a heart rate in 100's. Source of infection seems to be UTI, though HCAP cannot be ruled out. X-ray and CT of the chest shows bilateral pleural effusions left larger than right associated with infiltrate/atelectasis. He has multiple skin ulcers including his sacral area and his bilateral ankles. Patient received 3 L normal saline bolus with improvement in blood pressure. Levophed ordered. I have started patient on stress dose steroids as he was receiving pred[facility]one at the [facility] . Patient received Zosyn in the ED. I will place patient on cefepime, Flagyl (hx of C Diff) and IV vancomycin. Infectious disease consulted for septic shock in an immunocompromised patient. Biochemistry Professor Notes. 11/13 Patient is on 35% VM, afebrile. Off Levophed 11/14 Patient was started on Cardizem drip 15mg/hr overnight in addition was given Lopressor 2.5mg IV x1 for tachycardia. Afebrile. On Heparin drip. s/p transfusion 1u PRBC for Hgb 6.9 now 8.1. 11/15 Patient is on Neosyn 40 mics, off vasopressin. He was given Amiodarone bolus overnight for Afib with RVR HR remains 120-130's. Afebrile. 11/16: Remains on Cardizem and amiodarone. Off vasopressors. Patient's CXR appears worse. He does not appear in distress. Palliative care consulted and family and patient will decide on hospice after d/w Dr. Monteiro 11/17: Bedside ultrasound shows fairly large left pleural effusion despite chest tube. Possibly loculated. We'll hold off thoracentesis to additional chest tube and the patient makes decisions about comfort measures versus aggressive care. Patient waiting to talk to Dr. Monteiro to decide on hospice 11/18: Patient declined hospice and wants to continue aggressive care at this time. White count has increased to 48.9 with 97% neutrophils, I have requested ID reevaluation. Large right pleural effusion drained today 1.2 L clear fluid. UO 4L in 24 hours 11/19/16: Patient had right thoracentesis yesterday 11/18 with 1.2 L pleural fluid removed. A new left pigtail chest tube was placed also yesterday 11/18 with 580 mL of slightly blood-tinged pleural fluid removal over 24 hours. Patient now on nasal cannula tolerating well. Left 32 [place] chest tube was removed today 11/20: Breathing more comfortably now. Large bore chest tube removed yesterday. No pneumothorax. WBC count slightly improved from 45.5 to 42.5 11/21 No acute events overnight. Patient is lying in bed in NAD. Afebrile. WBC 43 11/22 Patient is on 2L oxygen with good sats. Afebrile. WBC 39 today from 43. Awake and alert. 11/23 No acute events overnight. WBC trending down 36 today. Afebrile. 11/24 patient transferred to Hospitalist team for today. as per Infectious Disease specialist MSSA Bacteremia, MSSA in Urine, Pneumonia with Effusions, Proteus UTI, Prior history of Diarrhea, Discontinued Vancomycin, Discontinued Micafungin continued Cefepime and Flagyl by mouth, check C Diff PCR. 11/25 Patient stable in his bedroom, discussed with nurse Mr. Moreno replacing Phosphorus level. Objective Vital Signs Date Time Temp Pulse Resp B/P Pulse Ox O2 Delivery O2 Flow Rate FiO2 11/25/16 12:00 97.3 68 20 143/65 99 11/25/16 10:20 96 21 11/25/16 07:40 95.7 86 20 111/66 93 11/25/16 04:00 95.5 85 17 100/80 95 11/25/16 00:00 96.5 70 16 107/65 96 11/24/16 22:45 96.7 85 19 92/70 96 11/24/16 22:00 67 11/24/16 20:00 98.3 87 17 102/68 98 11/24/16 20:00 85 11/24/16 20:00 98 Room Air 11/24/16 19:41 98 21 11/24/16 18:11 86 I/O 11/24/16 11/24/16 11/24/16 11/25/16 11/25/16 11/25/16 07:00 15:00 23:00 07:00 15:00 23:00 Intake Total 775 ml 1295 ml 1440 ml 860 ml 840 ml Output Total 75 ml 110 ml 550 ml 200 ml Balance 700 ml 1185 ml 890 ml 860 ml 640 ml Intake Oral 100 ml 400 ml 240 ml 60 ml 840 ml IV Total 675 ml 895 ml 1200 ml 800 ml Output Urine Total 75 ml 110 ml 550 ml 200 ml Bladder Scan Volume Amount 189 ml 189 ml # Bowel Movements 0 1 0 1 Result Diagram: 11/25/16 0627 11/25/16 0828 Imaging Last Impressions Chest X-Ray 11/23/16 0000 Signed Impressions: Service Date/Time: November 12:24 - CONCLUSION: 1. Small bore chest tube on the left. No pneumothorax. 2. Interval clearing of the pulmonary parenchyma compared to previous. Constantino Huynh MD Chest CT 11/12/16 0000 Signed Impressions: Service Date/Time: Saturday, November 12, 2016 11:23 - CONCLUSION: 1. Bilateral pleural effusions left greater than right. Bilateral dependent parenchymal lung opacity indicating atelectasis. 2. Decrease in size of right hilar and mediastinal mass/enlarged lymph nodes. Prashant Valdez MD Procedures Thoracentesis, Pigtail, Chest tube placement. Other Results Laboratory Tests Test 11/21/16 11/22/16 11/23/16 11/23/16 05:30 05:16 03:45 11:30 Myelocytes 1 % Keratocytes OCC Metamyelocytes 1 % Band Neutrophils % 6 % Toxic Granulation 2+ Random Vancomycin Level 8.2 COMMENT Stool C. difficile Toxin (PCR) NEGATIVE Stl C. difficile Toxin PRESUMPTIVE Epiderm 027 NEGATIVE Test 11/24/16 11/24/16 11/25/16 11/25/16 05:51 10:51 06:27 08:28 Total Bilirubin 0.3 MG/DL Aspartate Amino Transf 8 U/L (AST/SGOT) Alanine Aminotransferase LESS THAN 6 U/L (ALT/SGPT) Alkaline Phosphatase 80 U/L Albumin 1.7 GM/DL Neutrophils (%) (Auto) % Lymphocytes (%) (Auto) % Monocytes (%) (Auto) % Eosinophils (%) (Auto) % Basophils (%) (Auto) % Neutrophils # (Auto) TH/MM3 Lymphocytes # (Auto) TH/MM3 Monocytes # (Auto) TH/MM3 Eosinophils # (Auto) TH/MM3 Basophils # (Auto) TH/MM3 CBC Comment AUTO DIFF Differential Total Cells 100 Counted Neutrophils % (Manual) 90 % Lymphocytes % 3 % Monocytes % 7 % Neutrophils # (Manual) 43.7 TH/MM3 Differential Comment FINAL DIFF MANUAL Platelet Estimate NORMAL Platelet Morphology Comment NORMAL Ovalocytes 1+ Acanthocytes OCC Hematology Comments White Blood Count 37.4 TH/MM3 Red Blood Count 3.15 MIL/MM3 Hemoglobin 8.9 GM/DL Hematocrit 27.9 % Mean Corpuscular Volume 88.7 FL Mean Corpuscular Hemoglobin 28.3 PG Mean Corpuscular Hemoglobin 31.9 % Concent Red Cell Distribution Width 19.2 % Platelet Count 244 TH/MM3 Mean Platelet Volume 6.9 FL Phosphorus Level 1.2 MG/DL Sodium Level 141 MEQ/L Potassium Level 3.4 MEQ/L Chloride Level 109 MEQ/L Carbon Dioxide Level 22.9 MEQ/L Anion Gap 9 MEQ/L Blood Urea Nitrogen 10 MG/DL Creatinine 0.38 MG/DL Estimat Glomerular Filtration 228 ML/MIN Rate Random Glucose 94 MG/DL Calcium Level 6.8 MG/DL Protein Corrected Calcium 8.0 MG/DL Magnesium Level 1.4 MG/DL Total Protein 4.8 GM/DL Objective Remarks GENERAL: Patient is lying in be din NAD SKIN: Warm and dry. HEAD: Normocephalic. EYES: No scleral icterus. No injection or drainage. NECK: Supple, trachea midline. No JVD or lymphadenopathy. CARDIOVASCULAR: Regular rate and rhythm without murmurs, gallops, or rubs. RESPIRATORY: Breath sounds equal bilaterally. No accessory muscle use. GASTROINTESTINAL: Abdomen soft, non-tender, nondistended. MUSCULOSKELETAL: No cyanosis, or edema. BACK: Nontender without obvious deformity. No CVA tenderness. Neuro: Awake and alert Medications and IVs Current Medications Medications (Trade) Dose Ordered Sig/Elvia Route Start Time Stop Time Status Last Admin (NS Flush) 2 ml UNSCH PRN IV FLUSH 11/12/16 11:00 11/19/16 09:00 (NS Flush) 2 ml BID IV FLUSH 11/12/16 21:00 11/24/16 20:29 (Tylenol) 650 mg Q6H PRN PO 11/12/16 12:00 11/13/16 21:07 (Protonix Inj) 40 mg DAILY IV 11/13/16 09:00 11/25/16 10:18 (Spiriva Inh) 18 mcg DAILY INH 11/13/16 09:00 11/25/16 12:49 Clopidogrel Bisulfate 75 mg 75 mg DAILY PO 11/13/16 09:00 11/25/16 10:31 (Levophed-Dextrose Drip) 250 ml @ 0 mls/hr TITRATE IV 11/12/16 13:30 11/12/16 18:48 Miscellaneous Information Patient in critical care unit? Ass... Q361D XX 11/12/16 18:30 11/12/16 18:30 (D50w (Vial) Inj) 25 ml UNSCH PRN IV PUSH 11/13/16 10:15 (Glucagon Inj) 1 mg UNSCH PRN OTHER 11/13/16 10:15 (NovoLIN R SUPPLEMENTAL SCALE) 1 Q6H SQ 11/13/16 10:15 11/21/16 22:12 Metronidazole 500 mg 500 mg Q8HR PO 11/14/16 14:00 11/25/16 12:55 (Neosynephrine Inj/D5W 500 ml Inj) 500 ml @ 0 mls/hr TITRATE IV 11/14/16 17:15 11/15/16 12:54 (Brethine Inj) 1 mg UNSCH PRN SQ 11/14/16 16:15 (Restoril) 7.5 mg HS PRN PO 11/15/16 22:45 11/24/16 22:43 Aspirin 81 mg 81 mg DAILY PO 11/16/16 09:00 11/25/16 10:31 Vasopressin 40 units/Dextrose 100 ml @ 0 mls/hr Q0M IV 11/18/16 14:45 11/18/16 14:59 (Maxipime Inj/NS Inj) 100 ml @ 200 mls/hr Q12H IV 11/18/16 18:00 11/25/16 06:03 (Lovenox Inj) 60 mg Q12H SQ 11/20/16 16:00 11/25/16 15:40 (Pill Splitter) 1 ea UNSCH PRN OTHER 11/21/16 11:00 (Lopressor) 25 mg Q12HR PO 11/22/16 21:00 11/25/16 10:31 Prednisone 20 mg 20 mg DAILY PO 11/23/16 09:00 11/25/16 10:31 (NS + KCl 20 Meq Inj) 1,000 ml @ 100 mls/hr Q10H IV 11/23/16 08:00 11/25/16 12:54 (Cordarone) 200 mg DAILY PO 11/23/16 09:00 11/25/16 10:31 (Vasotec) 5 mg DAILY PO 11/26/16 09:00 A/P Assessment and Plan 1. Acute Metabolic Encephalopathy Resolved. 2. Respiratory Insufficiency/Bilateral Pleural Effusion/Possible HCAP/COPD/ Adenocarcinoma of the lung/History of PE continue to keep oxygen saturation over 92%, Bronchodilator, Mucolytic, incentive spirometry, Steroids. Status post Chest tube placement 11/12 Exudate effusion per LDH criteria, removed 11/19/16 Cytology negative for malignancy, Status post right thoracentesis with 1.2 L fluid removed, Transudate status post Pigtail catheter drainage of Lower pleural effusion, 11/18/16. Removed Chest tube 3. Acute on chronic systolic heart failure, Ischemic cardiomyopathy, Atrial Fibrillation with RVR. 4. Hypotension/CAD/status post STEMI 07/08/16 with PCI/DELMY to D1, on Amiodarone 400 mg daily and Metoprolol 12.5 mg BID. EF 30-35% Continue Plavix. 5. Diarrhea/History of C Diff Colitis. On Protonix as per Parking Meter Installer. 6. Staph aureus Bacteremia/Severe Sepsis with worsening Leukocytosis, UTI/ Possible HCAP, History of C Diff Colitis Continue management as per ID specialist Doctor Marilu, IV Vancomycin, Cefepime, Micafungin IV, Flagyl by Mouth Urine Proteus Mirabilis Staph species. 7. Non Small cell lung cancer/Pulmonary Emboli diagnosed 07/08/16. on Chemoradiation therapy by Doctor Monteiro education program specialist following, Doctor Monteiro, Lovenox 60 mg q12 hours. 8. Electrolyte derangement Phosphorus and magnesium replaced and following. -Bilateral lower extremity SCDs. On Lovenox 60 mg subcutaneous every 12, IV Protonix Following recommendations by PT/OT. Seen in Oncology floor today Discharge Planning Not yet cleared by commissioning specialist for discharge. Chaka Haro MD Nov 25, 2016 17:17
[2016-11-25] MEDS: MAGNESIUM SULFATE 1 GM PREMIX 100 ML IV SCH ×2 (17:57→17:58)
[2016-11-25] MEDS: RESP: ALBUTEROL 2.5 MG/IPRATROPIUM 0.5 MG NEB (SCH) NEB (20:55)
[2016-11-25] MEDS: TEMAZEPAM 7.5 MG CAP PO PRN (21:50)
[2016-11-26] VITALS (10 sets, daily range): BP systolic 105–127; BP diastolic 66–83; PULSE 8–96; RESP 17–20; TEMP 96.5–98.1; O2SAT 92–96
[2016-11-26] MEDS: INSULIN NovoLIN REGULAR SUPPLEMENTAL SCALE SQ SCH ×4 (04:15→21:26)
[2016-11-26] MEDS: NS + KCL 20 MEQ INJ 1,000 ML IV SCH ×3 (04:37→16:31)
[2016-11-26] MEDS: ENOXAPARIN SODIUM 60 MG/0.6 ML SYRINGE SQ SCH ×2 (04:37→16:36)
[2016-11-26] MEDS: metroNIDAZOLE 500 MG TAB PO SCH ×3 (06:10→21:26)
[2016-11-26] MEDS: CEFEPIME INJ 2,000 MG in SODIUM CHLORIDE 0.9% INJ 100 ML IV SCH ×2 (06:10→16:33)
--- NOTE | 2016-11-26 08:25 | HHI.PR ---
Subjective Remarks This is a 64-year-old male with history of COPD, hypertension, coronary artery disease, STEMI on 07/08/16 s/p PCI and DELMY (Dr. Crouch), history of C. difficile colitis, non-small cell lung cancer receiving chemoradiation per Dr. Monteiro, history of pulmonary embolism on Lovenox who was admitted to hospital recently from 07/08-08/31/16 with above diagnoses. During that admission he was noted to have a mediastinal and lung mass which was invading bilateral mainstem bronchi- subsequently diagnosed as a non-small cell lung cancer(adenocarcinoma). He had complete atelectasis of the right lung last admission which required bronchoscopy 2. With chemoradiation obstruction improved with resolution of atelectasis. Today patient was brought from the [facility] for fever, hypotension, confusion. Apparently patient was to be started on antibiotics for a UTI however prior to starting the antibiotics, he was found to be profoundly hypotensive, confused and was sent to ER. The patient also was noted to have diarrhea. His initial systolic blood pressure was in the 70s, rectal temperature of 100.4 and also tachycardic with a heart rate in 100's. Source of infection seems to be UTI, though HCAP cannot be ruled out. X-ray and CT of the chest shows bilateral pleural effusions left larger than right associated with infiltrate/atelectasis. He has multiple skin ulcers including his sacral area and his bilateral ankles. Patient received 3 L normal saline bolus with improvement in blood pressure. Levophed ordered. I have started patient on stress dose steroids as he was receiving prednisone at the [facility] . Patient received Zosyn in the ED. I will place patient on cefepime, Flagyl (hx of C Diff) and IV vancomycin. Infectious disease consulted for septic shock in an immunocompromised patient. Videographer Notes. 11/13 Patient is on 35% VM, afebrile. Off Levophed 11/14 Patient was started on Cardizem drip 15mg/hr overnight in addition was given Lopressor 2.5mg IV x1 for tachycardia. Afebrile. On Heparin drip. s/p transfusion 1u PRBC for Hgb 6.9 now 8.1. 11/15 Patient is on Neosyn 40 mics, off vasopressin. He was given Amiodarone bolus overnight for Afib with RVR HR remains 120-130's. Afebrile. 11/16: Remains on Cardizem and amiodarone. Off vasopressors. Patient's CXR appears worse. He does not appear in distress. Palliative care consulted and family and patient will decide on hospice after d/w Dr. Monteiro 11/17: Bedside ultrasound shows fairly large left pleural effusion despite chest tube. Possibly loculated. We'll hold off thoracentesis to additional chest tube and the patient makes decisions about comfort measures versus aggressive care. Patient waiting to talk to Dr. Monteiro to decide on hospice 11/18: Patient declined hospice and wants to continue aggressive care at this time. White count has increased to 48.9 with 97% neutrophils, I have requested ID reevaluation. Large right pleural effusion drained today 1.2 L clear fluid. UO 4L in 24 hours 11/19/16: Patient had right thoracentesis yesterday 11/18 with 1.2 L pleural fluid removed. A new left pigtail chest tube was placed also yesterday 11/18 with 580 mL of slightly blood-tinged pleural fluid removal over 24 hours. Patient now on nasal cannula tolerating well. Left 32 [place] chest tube was removed today 11/20: Breathing more comfortably now. Large bore chest tube removed yesterday. No pneumothorax. WBC count slightly improved from 45.5 to 42.5 11/21 No acute events overnight. Patient is lying in bed in NAD. Afebrile. WBC 43 11/22 Patient is on 2L oxygen with good sats. Afebrile. WBC 39 today from 43. Awake and alert. 11/23 No acute events overnight. WBC trending down 36 today. Afebrile. 11/24 patient transferred to Hospitalist team for today. as per Infectious Disease specialist MSSA Bacteremia, MSSA in Urine, Pneumonia with Effusions, Proteus UTI, Prior history of Diarrhea, Discontinued Vancomycin, Discontinued Micafungin continued Cefepime and Flagyl by mouth, check C Diff PCR. 11/25 Patient stable in his bedroom, discussed with nurse Moreno replacing Phosphorus level. 11/26 Patient stable in his bedroom no nausea, vomit or diarrhea, discussed with patient and his . and nurse Trish Objective Vital Signs Date Time Temp Pulse Resp B/P Pulse Ox O2 Delivery O2 Flow Rate FiO2 11/26/16 04:00 97.3 80 18 116/69 92 11/26/16 00:00 96.5 92 18 127/69 94 11/25/16 20:55 93 21 11/25/16 20:00 98.2 90 17 135/75 94 11/25/16 17:00 97.4 82 22 133/78 97 11/25/16 12:00 97.3 68 20 143/65 99 11/25/16 10:20 96 21 I/O 11/25/16 11/25/16 11/25/16 11/26/16 11/26/16 11/26/16 07:00 15:00 23:00 07:00 15:00 23:00 Intake Total 860 ml 840 ml 240 ml Output Total 200 ml 125 ml 800 ml Balance 860 ml 640 ml 115 ml -800 ml Intake Oral 60 ml 840 ml 240 ml IV Total 800 ml Output Urine Total 200 ml 125 ml 800 ml Bladder Scan Volume Amount 189 ml 189 ml # Bowel Movements 1 0 Result Diagram: 11/25/16 0627 11/25/16 0828 Imaging Last Impressions Chest X-Ray 11/23/16 0000 Signed Impressions: Service Date/Time: November 12:24 - CONCLUSION: 1. Small bore chest tube on the left. No pneumothorax. 2. Interval clearing of the pulmonary parenchyma compared to previous. Constantino Huynh MD Chest CT 11/12/16 0000 Signed Impressions: Service Date/Time: Saturday, November 12, 2016 11:23 - CONCLUSION: 1. Bilateral pleural effusions left greater than right. Bilateral dependent parenchymal lung opacity indicating atelectasis. 2. Decrease in size of right hilar and mediastinal mass/enlarged lymph nodes. Prashant Valdez MD Procedures Thoracentesis, Pigtail, Chest tube placement. Other Results Laboratory Tests Test 11/22/16 11/23/16 11/23/16 11/24/16 05:16 03:45 11:30 05:51 Metamyelocytes 1 % Band Neutrophils % 6 % Toxic Granulation 2+ Random Vancomycin Level 8.2 COMMENT Stool C. difficile Toxin (PCR) NEGATIVE Stl C. difficile Toxin PRESUMPTIVE Epiderm 027 NEGATIVE Total Bilirubin 0.3 MG/DL Aspartate Amino Transf 8 U/L (AST/SGOT) Alanine Aminotransferase LESS THAN 6 U/L (ALT/SGPT) Alkaline Phosphatase 80 U/L Albumin 1.7 GM/DL Test 11/24/16 11/25/16 11/25/16 10:51 06:27 08:28 Neutrophils (%) (Auto) % Lymphocytes (%) (Auto) % Monocytes (%) (Auto) % Eosinophils (%) (Auto) % Basophils (%) (Auto) % Neutrophils # (Auto) TH/MM3 Lymphocytes # (Auto) TH/MM3 Monocytes # (Auto) TH/MM3 Eosinophils # (Auto) TH/MM3 Basophils # (Auto) TH/MM3 CBC Comment AUTO DIFF Differential Total Cells 100 Counted Neutrophils % (Manual) 90 % Lymphocytes % 3 % Monocytes % 7 % Neutrophils # (Manual) 43.7 TH/MM3 Differential Comment FINAL DIFF MANUAL Platelet Estimate NORMAL Platelet Morphology Comment NORMAL Ovalocytes 1+ Acanthocytes OCC Hematology Comments White Blood Count 37.4 TH/MM3 Red Blood Count 3.15 MIL/MM3 Hemoglobin 8.9 GM/DL Hematocrit 27.9 % Mean Corpuscular Volume 88.7 FL Mean Corpuscular Hemoglobin 28.3 PG Mean Corpuscular Hemoglobin 31.9 % Concent Red Cell Distribution Width 19.2 % Platelet Count 244 TH/MM3 Mean Platelet Volume 6.9 FL Phosphorus Level 1.2 MG/DL Sodium Level 141 MEQ/L Potassium Level 3.4 MEQ/L Chloride Level 109 MEQ/L Carbon Dioxide Level 22.9 MEQ/L Anion Gap 9 MEQ/L Blood Urea Nitrogen 10 MG/DL Creatinine 0.38 MG/DL Estimat Glomerular Filtration 228 ML/MIN Rate Random Glucose 94 MG/DL Calcium Level 6.8 MG/DL Protein Corrected Calcium 8.0 MG/DL Magnesium Level 1.4 MG/DL Total Protein 4.8 GM/DL Objective Remarks GENERAL: Patient is lying in be din NAD SKIN: Warm and dry. HEAD: Normocephalic. EYES: No scleral icterus. No injection or drainage. NECK: Supple, trachea midline. No JVD or lymphadenopathy. CARDIOVASCULAR: Regular rate and rhythm without murmurs, gallops, or rubs. RESPIRATORY: Breath sounds equal bilaterally. No accessory muscle use. GASTROINTESTINAL: Abdomen soft, non-tender, nondistended. MUSCULOSKELETAL: No cyanosis, or edema. BACK: Nontender without obvious deformity. No CVA tenderness. Neuro: Awake and alert Medications and IVs Current Medications Medications (Trade) Dose Ordered Sig/Elvia Route Start Time Stop Time Status Last Admin (NS Flush) 2 ml UNSCH PRN IV FLUSH 11/12/16 11:00 11/19/16 09:00 (NS Flush) 2 ml BID IV FLUSH 11/12/16 21:00 11/24/16 20:29 (Tylenol) 650 mg Q6H PRN PO 11/12/16 12:00 11/13/16 21:07 (Protonix Inj) 40 mg DAILY IV 11/13/16 09:00 11/25/16 10:18 (Spiriva Inh) 18 mcg DAILY INH 11/13/16 09:00 11/25/16 12:49 Clopidogrel Bisulfate 75 mg 75 mg DAILY PO 11/13/16 09:00 11/25/16 10:31 (Levophed-Dextrose Drip) 250 ml @ 0 mls/hr TITRATE IV 11/12/16 13:30 11/12/16 18:48 Miscellaneous Information Patient in critical care unit? Ass... Q361D XX 11/12/16 18:30 11/12/16 18:30 (D50w (Vial) Inj) 25 ml UNSCH PRN IV PUSH 11/13/16 10:15 (Glucagon Inj) 1 mg UNSCH PRN OTHER 11/13/16 10:15 (NovoLIN R SUPPLEMENTAL SCALE) 1 Q6H SQ 11/13/16 10:15 11/21/16 22:12 Metronidazole 500 mg 500 mg Q8HR PO 11/14/16 14:00 11/26/16 06:10 (Neosynephrine Inj/D5W 500 ml Inj) 500 ml @ 0 mls/hr TITRATE IV 11/14/16 17:15 11/15/16 12:54 (Brethine Inj) 1 mg UNSCH PRN SQ 11/14/16 16:15 (Restoril) 7.5 mg HS PRN PO 11/15/16 22:45 11/25/16 21:50 Aspirin 81 mg 81 mg DAILY PO 11/16/16 09:00 11/25/16 10:31 Vasopressin 40 units/Dextrose 100 ml @ 0 mls/hr Q0M IV 11/18/16 14:45 11/18/16 14:59 (Maxipime Inj/NS Inj) 100 ml @ 200 mls/hr Q12H IV 11/18/16 18:00 11/26/16 06:10 (Lovenox Inj) 60 mg Q12H SQ 11/20/16 16:00 11/26/16 04:37 (Pill Splitter) 1 ea UNSCH PRN OTHER 11/21/16 11:00 (Lopressor) 25 mg Q12HR PO 11/22/16 21:00 11/25/16 21:48 Prednisone 20 mg 20 mg DAILY PO 11/23/16 09:00 11/25/16 10:31 (NS + KCl 20 Meq Inj) 1,000 ml @ 100 mls/hr Q10H IV 11/23/16 08:00 11/26/16 04:37 (Cordarone) 200 mg DAILY PO 11/23/16 09:00 11/25/16 10:31 (Vasotec) 5 mg DAILY PO 11/26/16 09:00 A/P Assessment and Plan 1. Acute Metabolic Encephalopathy Resolved. 2. Respiratory Insufficiency/Bilateral Pleural Effusion/Possible HCAP/COPD/ Adenocarcinoma of the lung/History of PE continue to keep oxygen saturation over 92%, Bronchodilator, Mucolytic, incentive spirometry, Steroids. Status post Chest tube placement 11/12 Exudate effusion per LDH criteria, removed 11/19/16 Cytology negative for malignancy, Status post right thoracentesis with 1.2 L fluid removed, Transudate status post Pigtail catheter drainage of Lower pleural effusion, 11/18/16. Removed Chest tube 3. Acute on chronic systolic heart failure, Ischemic cardiomyopathy, Atrial Fibrillation with RVR. 4. Hypotension/CAD/status post STEMI 07/08/16 with PCI/DELMY to D1, on Amiodarone 400 mg daily and Metoprolol 12.5 mg BID. EF 30-35% Continue Plavix. 5. Diarrhea/History of C Diff Colitis. On Protonix as per Cracker Dough Mixer. 6. Staph aureus Bacteremia/Severe Sepsis with worsening Leukocytosis, UTI/ Possible HCAP, History of C Diff Colitis Continue management as per ID specialist Doctor Michel, IV Vancomycin, Cefepime, Micafungin IV, Flagyl by Mouth Urine Proteus Mirabilis Staph species. 7. Non Small cell lung cancer/Pulmonary Emboli diagnosed 07/08/16. on Chemoradiation therapy by Doctor Monteiro plant technical specialist following, Doctor Monteiro, Lovenox 60 mg q12 hours. 8. Electrolyte derangement Phosphorus and magnesium replaced and following. Bilateral lower extremity SCDs. On Lovenox 60 mg subcutaneous every 12, IV Protonix Following recommendations by PT/OT. Discussed with patient and his Mrs. Chambers, continue Physical Therapy and with nurse Mr. Moreno. Discharge Planning Not yet cleared by center specialists for discharge. Chaka Haro MD Nov 26, 2016 08:25
[2016-11-26] MEDS: PANTOPRAZOLE SODIUM 40 MG VIAL IV SCH (08:34)
[2016-11-26] MEDS: AMIODARONE 200 MG TAB PO SCH (08:35)
[2016-11-26] MEDS: METOPROLOL TARTRATE 25 MG TAB PO SCH ×2 (08:35→21:26)
[2016-11-26] MEDS: predniSONE 20 MG TAB PO SCH (08:35)
[2016-11-26] MEDS: ASPIRIN EC 81 MG TABEC PO SCH (08:35)
[2016-11-26] MEDS: ENALAPRIL MALEATE 5 MG TAB PO SCH (08:35)
[2016-11-26] MEDS: CLOPIDOGREL 75 MG TAB PO SCH (08:35)
[2016-11-26] MEDS: TIOTROPIUM BROMIDE 18 MCG INH INH SCH (08:36)
[2016-11-26] MEDS: SODIUM CHLORIDE 0.9% FLUSH 5 ML FLUSH IV FLUSH SCH ×2 (08:37→21:00)
[2016-11-26] MEDS: RESP: ALBUTEROL 2.5 MG/IPRATROPIUM 0.5 MG NEB (SCH) NEB ×3 (09:26→20:03)
[2016-11-26] MEDS: MAGNESIUM OXIDE 400 MG TAB PO SCH (21:26)
[2016-11-26] MEDS: TEMAZEPAM 7.5 MG CAP PO PRN (22:28)
[2016-11-27] VITALS (7 sets, daily range): BP systolic 119–139; BP diastolic 74–88; PULSE 90–105; RESP 17–20; TEMP 96.3–98.1; O2SAT 92–97
[2016-11-27] MEDS: NS + KCL 20 MEQ INJ 1,000 ML IV SCH ×3 (03:54→22:17)
[2016-11-27] MEDS: ENOXAPARIN SODIUM 60 MG/0.6 ML SYRINGE SQ SCH ×2 (04:15→16:00)
[2016-11-27] MEDS: INSULIN NovoLIN REGULAR SUPPLEMENTAL SCALE SQ SCH ×4 (04:15→22:15)
[2016-11-27] MEDS: CEFEPIME INJ 2,000 MG in SODIUM CHLORIDE 0.9% INJ 100 ML IV SCH (05:35)
[2016-11-27] MEDS: metroNIDAZOLE 500 MG TAB PO SCH (05:36)
[2016-11-27] MEDS: RESP: ALBUTEROL 2.5 MG/IPRATROPIUM 0.5 MG NEB (SCH) NEB ×3 (07:43→20:04)
[2016-11-27 07:50] LABS: HEMATOCRIT 24.9 % (39.0-51.0); MEAN CELL VOLUME 89.7 FL (80.0-100.0); MEAN CORPUSCULAR HEMOGLOBIN 28.8 PG (27.0-34.0); MEAN CORPUSCULAR HGB CONC 32.1 % (32.0-36.0); PLATELET COUNT 228 TH/MM3 (150-450); RED BLOOD COUNT 2.77 MIL/MM3 (4.50-5.90); RED CELL DISTRIBUTION WIDTH 19.2 % (11.6-17.2)
[2016-11-27 07:53] LABS: REVIEW FLAG FINAL
--- NOTE | 2016-11-27 08:10 | HHI.PR ---
Subjective Remarks This is a 64-year-old male with history of COPD, hypertension, coronary artery disease, STEMI on 07/08/16 s/p PCI and DELMY (Dr. Crouch), history of C. difficile colitis, non-small cell lung cancer receiving chemoradiation per Dr. Monteiro, history of pulmonary embolism on Lovenox who was admitted to hospital recently from 07/08-08/31/16 with above diagnoses. noted Mediastinal and Lung mass, as Non Small Cell Lung Cancer(Adenocarcinoma), status post Bronchoscopy. Brought from [facility] with fever, Hypotension, Encephalopathy, Septic, UTI, HCAP, ID specialist following, was in Intensive Care Unit received Zosyn in ER and given Cefepime and Flagyl by technical specialist cytology and Vancomycin. Felt Hanger Notes. 11/13 Patient is on 35% VM, afebrile. Off Levophed 11/14 Patient was started on Cardizem drip 15mg/hr overnight in addition was given Lopressor 2.5mg IV x1 for tachycardia. Afebrile. On Heparin drip. s/p transfusion 1u PRBC for Hgb 6.9 now 8.1. 11/15 Patient is on Neosyn 40 mics, off vasopressin. He was given Amiodarone bolus overnight for Afib with RVR HR remains 120-130's. Afebrile. 11/16: Remains on Cardizem and amiodarone. Off vasopressors. Patient's CXR appears worse. He does not appear in distress. Palliative care consulted and family and patient will decide on hospice after d/w Dr. Monteiro 11/17: Bedside ultrasound shows fairly large left pleural effusion despite chest tube. Possibly loculated. We'll hold off thoracentesis to additional chest tube and the patient makes decisions about comfort measures versus aggressive care. Patient waiting to talk to Dr. Monteiro to decide on hospice 11/18: Patient declined hospice and wants to continue aggressive care at this time. White count has increased to 48.9 with 97% neutrophils, I have requested ID reevaluation. Large right pleural effusion drained today 1.2 L clear fluid. UO 4L in 24 hours 11/19/16: Patient had right thoracentesis yesterday 11/18 with 1.2 L pleural fluid removed. A new left pigtail chest tube was placed also yesterday 11/18 with 580 mL of slightly blood-tinged pleural fluid removal over 24 hours. Patient now on nasal cannula tolerating well. Left 32 Azeri chest tube was removed today 11/20: Breathing more comfortably now. Large bore chest tube removed yesterday. No pneumothorax. WBC count slightly improved from 45.5 to 42.5 11/21 No acute events overnight. Patient is lying in bed in NAD. Afebrile. WBC 43 11/22 Patient is on 2L oxygen with good sats. Afebrile. WBC 39 today from 43. Awake and alert. 11/23 No acute events overnight. WBC trending down 36 today. Afebrile. 11/24 patient transferred to Hospitalist team for today. as per Infectious Disease specialist MSSA Bacteremia, MSSA in Urine, Pneumonia with Effusions, Proteus UTI, Prior history of Diarrhea, Discontinued Vancomycin, Discontinued Micafungin continued Cefepime and Flagyl by mouth, check C Diff PCR. 11/25 Patient stable in his bedroom, discussed with nurse Mr. Moreno replacing Phosphorus level. 11/26 Patient stable in his bedroom no nausea, vomit or diarrhea, discussed with patient and his . and nurse 11/27 Seen in the room in the presence of his , unable to continue further management for his Cancer due to multiple comorbidities, certified coding specialist recommends to keep Hemoglobin over 8 , continue Lovenox, CAD Cardiology following, to continue supportive care, as per ID specialist MSSA Bacteremia, BC negative, Pneumonia with effusions Proteus UTI catheter related, Prior C Diff, Persistent Leukocytosis, recommended to continue Rocephin Objective Vital Signs Date Time Temp Pulse Resp B/P Pulse Ox O2 Delivery O2 Flow Rate FiO2 11/27/16 07:50 96 21 11/27/16 04:00 98.1 98 17 139/86 96 11/26/16 23:48 98.1 95 17 127/83 96 11/26/16 22:00 96 11/26/16 20:05 94 11/26/16 20:00 98.0 90 17 124/74 94 11/26/16 16:30 97.5 78 18 111/82 96 11/26/16 13:25 97.8 8 20 105/66 96 11/26/16 09:27 94 21 I/O 11/26/16 11/26/16 11/26/16 11/27/16 11/27/16 11/27/16 07:00 15:00 23:00 07:00 15:00 23:00 Intake Total 600 ml 720 ml 240 ml Output Total 800 ml 250 ml 300 ml Balance -800 ml 350 ml 420 ml 240 ml Intake Oral 600 ml 720 ml 240 ml Output Urine Total 800 ml 250 ml 300 ml # Voids 0 # Bowel Movements 0 2 1 0 Result Diagram: 11/27/16 0606 11/25/16 0828 Imaging Last Impressions Chest X-Ray 11/23/16 0000 Signed Impressions: Service Date/Time: November 12:24 - CONCLUSION: 1. Small bore chest tube on the left. No pneumothorax. 2. Interval clearing of the pulmonary parenchyma compared to previous. Constantino Huynh MD Chest CT 11/12/16 0000 Signed Impressions: Service Date/Time: Saturday, November 12, 2016 11:23 - CONCLUSION: 1. Bilateral pleural effusions left greater than right. Bilateral dependent parenchymal lung opacity indicating atelectasis. 2. Decrease in size of right hilar and mediastinal mass/enlarged lymph nodes. Prashant Valdez MD Procedures Thoracentesis, Pigtail, Chest tube placement. Other Results Laboratory Tests Test 11/23/16 11/23/16 11/24/16 11/24/16 03:45 11:30 05:51 10:51 Band Neutrophils % 6 % Toxic Granulation 2+ Random Vancomycin Level 8.2 COMMENT Stool C. difficile Toxin (PCR) NEGATIVE Stl C. difficile Toxin PRESUMPTIVE Epiderm 027 NEGATIVE Total Bilirubin 0.3 MG/DL Aspartate Amino Transf 8 U/L (AST/SGOT) Alanine Aminotransferase LESS THAN 6 U/L (ALT/SGPT) Alkaline Phosphatase 80 U/L Albumin 1.7 GM/DL Neutrophils (%) (Auto) % Lymphocytes (%) (Auto) % Monocytes (%) (Auto) % Eosinophils (%) (Auto) % Basophils (%) (Auto) % Neutrophils # (Auto) TH/MM3 Lymphocytes # (Auto) TH/MM3 Monocytes # (Auto) TH/MM3 Eosinophils # (Auto) TH/MM3 Basophils # (Auto) TH/MM3 CBC Comment AUTO DIFF Differential Total Cells 100 Counted Neutrophils % (Manual) 90 % Lymphocytes % 3 % Monocytes % 7 % Neutrophils # (Manual) 43.7 TH/MM3 Differential Comment FINAL DIFF MANUAL Platelet Estimate NORMAL Platelet Morphology Comment NORMAL Ovalocytes 1+ Acanthocytes OCC Hematology Comments Test 11/25/16 11/25/16 11/27/16 06:27 08:28 06:06 Phosphorus Level 1.2 MG/DL Sodium Level 141 MEQ/L Potassium Level 3.4 MEQ/L Chloride Level 109 MEQ/L Carbon Dioxide Level 22.9 MEQ/L Anion Gap 9 MEQ/L Blood Urea Nitrogen 10 MG/DL Creatinine 0.38 MG/DL Estimat Glomerular Filtration 228 ML/MIN Rate Random Glucose 94 MG/DL Calcium Level 6.8 MG/DL Protein Corrected Calcium 8.0 MG/DL Magnesium Level 1.4 MG/DL Total Protein 4.8 GM/DL White Blood Count 37.0 TH/MM3 Red Blood Count 2.77 MIL/MM3 Hemoglobin 8.0 GM/DL Hematocrit 24.9 % Mean Corpuscular Volume 89.7 FL Mean Corpuscular Hemoglobin 28.8 PG Mean Corpuscular Hemoglobin 32.1 % Concent Red Cell Distribution Width 19.2 % Platelet Count 228 TH/MM3 Mean Platelet Volume 7.1 FL Objective Remarks GENERAL: Patient is lying in be din NAD SKIN: Warm and dry. HEAD: Normocephalic. EYES: No scleral icterus. No injection or drainage. NECK: Supple, trachea midline. No JVD or lymphadenopathy. CARDIOVASCULAR: Regular rate and rhythm without murmurs, gallops, or rubs. RESPIRATORY: Breath sounds equal bilaterally. No accessory muscle use. GASTROINTESTINAL: Abdomen soft, non-tender, nondistended. MUSCULOSKELETAL: No cyanosis, or edema. BACK: Nontender without obvious deformity. No CVA tenderness. Neuro: Awake and alert Medications and IVs Current Medications Medications (Trade) Dose Ordered Sig/Elvia Route Start Time Stop Time Status Last Admin (NS Flush) 2 ml UNSCH PRN IV FLUSH 11/12/16 11:00 11/19/16 09:00 (NS Flush) 2 ml BID IV FLUSH 11/12/16 21:00 11/26/16 08:37 (Tylenol) 650 mg Q6H PRN PO 11/12/16 12:00 11/13/16 21:07 (Protonix Inj) 40 mg DAILY IV 11/13/16 09:00 11/26/16 08:34 (Spiriva Inh) 18 mcg DAILY INH 11/13/16 09:00 11/26/16 08:36 Clopidogrel Bisulfate 75 mg 75 mg DAILY PO 11/13/16 09:00 11/26/16 08:35 (Levophed-Dextrose Drip) 250 ml @ 0 mls/hr TITRATE IV 11/12/16 13:30 11/12/16 18:48 Miscellaneous Information Patient in critical care unit? Ass... Q361D XX 11/12/16 18:30 11/12/16 18:30 (D50w (Vial) Inj) 25 ml UNSCH PRN IV PUSH 11/13/16 10:15 (Glucagon Inj) 1 mg UNSCH PRN OTHER 11/13/16 10:15 Insulin Human Regular 1 1 Q6H SQ 11/13/16 10:15 11/21/16 22:12 (Neosynephrine Inj/D5W 500 ml Inj) 500 ml @ 0 mls/hr TITRATE IV 11/14/16 17:15 11/15/16 12:54 (Brethine Inj) 1 mg UNSCH PRN SQ 11/14/16 16:15 (Restoril) 7.5 mg HS PRN PO 11/15/16 22:45 11/26/16 22:28 Aspirin 81 mg 81 mg DAILY PO 11/16/16 09:00 11/26/16 08:35 (Pitressin Inj/ D5W 100 ml Inj) 100 ml @ 0 mls/hr Q0M IV 11/18/16 14:45 11/18/16 14:59 (Lovenox Inj) 60 mg Q12H SQ 11/20/16 16:00 11/27/16 04:15 (Pill Splitter) 1 ea UNSCH PRN OTHER 11/21/16 11:00 (Lopressor) 25 mg Q12HR PO 11/22/16 21:00 11/26/16 21:26 Prednisone 20 mg 20 mg DAILY PO 11/23/16 09:00 11/26/16 08:35 (NS + KCl 20 Meq Inj) 1,000 ml @ 100 mls/hr Q10H IV 11/23/16 08:00 11/27/16 03:54 (Cordarone) 200 mg DAILY PO 11/23/16 09:00 11/26/16 08:35 (Vasotec) 5 mg DAILY PO 11/26/16 09:00 11/26/16 08:35 Magnesium Oxide 400 mg 400 mg Q12HR PO 11/26/16 21:00 11/26/16 21:26 (Rocephin Inj/NS Inj) 100 ml @ 200 mls/hr Q24H IV 11/27/16 07:00 A/P Assessment and Plan 1. Acute Metabolic Encephalopathy Resolved. 2. Respiratory Insufficiency/Bilateral Pleural Effusion/Possible HCAP/COPD/ Adenocarcinoma of the lung/History of PE continue to keep oxygen saturation over 92%, Bronchodilator, Mucolytic, incentive spirometry, Steroids. Status post Chest tube placement 11/12 Exudate effusion per LDH criteria, removed 11/19/16 Cytology negative for malignancy, Status post right thoracentesis with 1.2 L fluid removed, Transudate status post Pigtail catheter drainage of Lower pleural effusion, 11/18/16. Removed Chest tube. 3. Acute on chronic systolic heart failure, Ischemic cardiomyopathy, Atrial Fibrillation with RVR. 4. Hypotension/CAD/status post STEMI 07/08/16 with PCI/DELMY to D1, on Amiodarone 400 mg daily and Metoprolol 12.5 mg BID. EF 30-35% Continue Plavix. 5. Diarrhea/History of C Diff Colitis. On Protonix as per Disability Insurance Claim Examiner. 6. Staph aureus Bacteremia/Severe Sepsis with worsening Leukocytosis, UTI/ Possible HCAP, History of C Diff Colitis ID following, he was on Vancomycin, Cefepime, Micafungin, Flagyl by mouth at this time, continue on Ceftriaxone with Diagnosis of MSSA Bacteremia, BC negative, Pneumonia with effusions, Proteus UTI Catheter related. Continue management as per ID specialist Doctor Michel, IV Vancomycin, Cefepime, Micafungin IV, Flagyl by Mouth Urine Proteus Mirabilis Staph species. Prior C diff and persistent Leukocytosis. 7. Non Small cell lung cancer/Pulmonary Emboli diagnosed 07/08/16. on Chemoradiation therapy by Doctor Monteiro certified coding specialist following, Doctor Monteiro, Lovenox 60 mg q12 hours. 8. Electrolyte derangement Phosphorus and magnesium replaced and following. Bilateral lower extremity SCDs. On Lovenox 60 mg subcutaneous every 12, IV Protonix Following recommendations by PT/OT. Discussed with patient and his in the room Nurse Miss Hart Discharge Planning Not yet cleared by lead sustainability specialist for discharge. Chaka Haro MD Nov 27, 2016 08:10 Chaka Haro MD Nov 27, 2016 08:10
[2016-11-27 08:25] LABS: MAGNESIUM 1.4 MG/DL (1.5-2.5); POTASSIUM 3.2 MEQ/L (3.5-5.1)
[2016-11-27 08:40] LABS: CALCIUM-PROTEIN CORRECTED 8.2 MG/DL (8.5-10.1)
[2016-11-27] MEDS: PANTOPRAZOLE SODIUM 40 MG VIAL IV SCH (08:42)
[2016-11-27] MEDS: AMIODARONE 200 MG TAB PO SCH (08:43)
[2016-11-27] MEDS: METOPROLOL TARTRATE 25 MG TAB PO SCH ×2 (08:43→22:16)
[2016-11-27] MEDS: cefTRIAXone INJ 2,000 MG in SODIUM CHLORIDE 0.9% INJ 100 ML IV SCH (08:43)
[2016-11-27] MEDS: predniSONE 20 MG TAB PO SCH (08:43)
[2016-11-27] MEDS: ENALAPRIL MALEATE 5 MG TAB PO SCH (08:43)
[2016-11-27] MEDS: ASPIRIN EC 81 MG TABEC PO SCH (08:43)
[2016-11-27] MEDS: MAGNESIUM OXIDE 400 MG TAB PO SCH ×2 (08:43→22:16)
[2016-11-27] MEDS: CLOPIDOGREL 75 MG TAB PO SCH (08:43)
[2016-11-27] MEDS: SODIUM CHLORIDE 0.9% FLUSH 5 ML FLUSH IV FLUSH SCH ×2 (08:44→22:16)
[2016-11-27] MEDS: TIOTROPIUM BROMIDE 18 MCG INH INH SCH (09:00)
--- NOTE | 2016-11-27 10:25 | HHI.IDPN ---
Subjective Subjective Remarks ID COVERAGE is a 65 y/o CM who looks older than stated age. His PMHx is significant for COPD, pulmonary embolism, non-small cell lung cancer diagnosis adenocarcinoma along with the mediastinal mass status post chemotherapy as well as radiation therapy who follows with Dr. Rj Monteiro. Patient was recently admitted on July 08, 2016 for chest pain diagnosed with ST elevation SC status post PCI and DELMY by Dr. Crouch cardiology. Patient also was admitted between July 08 to August 31, 2016 and underwent evaluation with diagnosis of non-small cell adenoca lung cancer. At that time was noted to have a lung mass which was invading bilateral mainstem bronchi this was diagnosed to be adenocarcinoma non-small cell lung cancer. He had complete atelectasis of the right lung which required bronchoscopy 2. Patient also underwent chemoradiation therapy and the obstruction was resolved reportedly. Notes reviewed Temps ok. Not SOB, on RA Has some cough, occ brings up white phlegm 3 BM recorded, C diff negative WBC same 37k CT has been removed Voiding - has condom cath now No rash No itching Overall feels better Antibiotics Rocephin Lines Line sites with no e/o infection Past Medical History reviewed Allergies: Coded Allergies: No Known Allergies (Unverified , 07/08/16) Objective . Vital Signs Date Time Temp Pulse Resp B/P Pulse Ox O2 Delivery O2 Flow Rate FiO2 11/27/16 07:50 96.3 97 20 119/75 94 11/27/16 07:50 96 21 11/27/16 04:00 98.1 98 17 139/86 96 11/26/16 23:48 98.1 95 17 127/83 96 11/26/16 22:00 96 11/26/16 20:05 94 11/26/16 20:00 98.0 90 17 124/74 94 11/26/16 16:30 97.5 78 18 111/82 96 11/26/16 13:25 97.8 8 20 105/66 96 11/26/16 11/26/16 11/27/16 15:00 23:00 07:00 Intake Total 600 ml 720 ml 240 ml Output Total 250 ml 300 ml Balance 350 ml 420 ml 240 ml Intake Oral 600 ml 720 ml 240 ml Output Urine Total 250 ml 300 ml # Voids 0 # Bowel Movements 2 1 0 . Laboratory Tests Test 11/27/16 06:06 White Blood Count 37.0 TH/MM3 Red Blood Count 2.77 MIL/MM3 Hemoglobin 8.0 GM/DL Hematocrit 24.9 % Mean Corpuscular Volume 89.7 FL Mean Corpuscular Hemoglobin 28.8 PG Mean Corpuscular Hemoglobin 32.1 % Concent Red Cell Distribution Width 19.2 % Platelet Count 228 TH/MM3 Mean Platelet Volume 7.1 FL Laboratory Tests Test 11/27/16 06:06 Sodium Level 141 MEQ/L Potassium Level 3.2 MEQ/L Chloride Level 108 MEQ/L Carbon Dioxide Level 22.0 MEQ/L Anion Gap 11 MEQ/L Blood Urea Nitrogen 8 MG/DL Creatinine 0.37 MG/DL Estimat Glomerular Filtration 235 ML/MIN Rate Random Glucose 78 MG/DL Calcium Level 6.8 MG/DL Protein Corrected Calcium 8.2 MG/DL Phosphorus Level 0.9 MG/DL Magnesium Level 1.4 MG/DL Total Protein 4.5 GM/DL Imaging Chest X-Ray 11/23/16 0000 Signed Impressions: Service Date/Time: November 12:24 - CONCLUSION: 1. Small bore chest tube on the left. No pneumothorax. 2. Interval clearing of the pulmonary parenchyma compared to previous. Constantino Huynh MD Chest CT 11/12/16 0000 Signed Impressions: Service Date/Time: Saturday, November 12, 2016 11:23 - CONCLUSION: 1. Bilateral pleural effusions left greater than right. Bilateral dependent parenchymal lung opacity indicating atelectasis. 2. Decrease in size of right hilar and mediastinal mass/enlarged lymph nodes. Prashant Valdez MD Chest X-Ray 11/18/16 0600 Signed Impressions: Service Date/Time: Friday, November 18, 2016 03:34 - CONCLUSION: Bilateral effusions and consolidation are again seen right greater than left. Left subclavian line and left-sided chest tube are present. I do not see a pneumothorax. Heart size normal. Jan Arias MD Chest CT 11/12/16 0000 Signed Impressions: Service Date/Time: Saturday, November 12, 2016 11:23 - CONCLUSION: 1. Bilateral pleural effusions left greater than right. Bilateral dependent parenchymal lung opacity indicating atelectasis. 2. Decrease in size of right hilar and mediastinal mass/enlarged lymph nodes. Prashant Valdez MD Chest X-Ray 11/12/16 0908 Signed Impressions: Service Date/Time: Saturday, November 12, 2016 09:30 - CONCLUSION: Left greater than right pleural effusions. Bilateral patchy parenchymal opacity in the right lung apex and left perihilar region. Prashant Valdez MD Chest CT 11/12/16 0000 Signed Impressions: Service Date/Time: Saturday, November 12, 2016 11:23 - CONCLUSION: 1. Bilateral pleural effusions left greater than right. Bilateral dependent parenchymal lung opacity indicating atelectasis. 2. Decrease in size of right hilar and mediastinal mass/enlarged lymph nodes. Prashant Valdez MD Physical Exam GENERAL: NAD. Awake and alert SKIN: Dry skin, warm. No generalized rash. A lot of purpura and skin tears HEENT: Pale conjunctiva, no petechia or hemorrhage. No scleral icterus. Dry oral mucosa. NECK: Trachea midline. Supple, nontender, no meningeal signs. CARDIOVASCULAR: Heart sounds audible. No murmur appreciated. RESPIRATORY: Breath sounds decreased at both bases. GASTROINTESTINAL: Abdomen soft, non-tender, nondistended. BS (+) MUSCULOSKELETAL: Mild pedal edema. No joint effusions. NEUROLOGICAL: Alert and oriented. Psych Calm and cooperative IV line sites with no evidence of infection. : Has condom cath Assessment & Plan Remarks Septic shock present on admission. Resolved MSSA bacteremia - fup BC negative - last (+) BC 11/13 MSSA in urine : ? translocation. Pneumonia with effusions. Proteus UTI, catheter related Prior h.o cdiff. - has diarrhea but C diff negative - has had jonnie tap, has 2 CT on L Acute anemia: Blood loss query GI versus other site. Acute respiratory failure. Mild abnormal LFTs: ? sepsis related Acute metabolic encephalopathy: Likely infection related. Immune compromised host. Non-small cell adenocarcinoma of the lung with obstruction and mediastinal mass. Leukocytosis, persistent - ?due to underlying malignancy - no new infection found - on adequate Rx for infection identified Recs: Continue Rocephin Monitor progress Follow CBC Monitor temps Explained plan to patient and Rhianna Hardin MD Nov 27, 2016 10:25
--- NOTE | 2016-11-27 12:36 | PD.ONC.PN ---
Subjective Subjective Remarks Afebrile overnight. patient says he has been trying to take a nap, but there have been multiple interruptions. Denies pain. Objective Data Date Time Temp Pulse Resp B/P Pulse Ox O2 Delivery O2 Flow Rate FiO2 11/27/16 10:48 90 11/27/16 07:50 96.3 97 20 119/75 94 11/27/16 07:50 96 21 11/27/16 04:00 98.1 98 17 139/86 96 11/26/16 23:48 98.1 95 17 127/83 96 11/26/16 22:00 96 11/26/16 20:05 94 11/26/16 20:00 98.0 90 17 124/74 94 11/26/16 16:30 97.5 78 18 111/82 96 11/26/16 13:25 97.8 8 20 105/66 96 11/27/16 11/27/16 11/27/16 07:00 15:00 23:00 Intake Total 240 ml Balance 240 ml Result Diagram: 11/27/16 0611/27/16 06 Laboratory Results Laboratory Tests Test 11/27/16 06:06 White Blood Count 37.0 TH/MM3 Red Blood Count 2.77 MIL/MM3 Hemoglobin 8.0 GM/DL Hematocrit 24.9 % Mean Corpuscular Volume 89.7 FL Mean Corpuscular Hemoglobin 28.8 PG Mean Corpuscular Hemoglobin 32.1 % Concent Red Cell Distribution Width 19.2 % Platelet Count 228 TH/MM3 Mean Platelet Volume 7.1 FL Sodium Level 141 MEQ/L Potassium Level 3.2 MEQ/L Chloride Level 108 MEQ/L Carbon Dioxide Level 22.0 MEQ/L Anion Gap 11 MEQ/L Blood Urea Nitrogen 8 MG/DL Creatinine 0.37 MG/DL Estimat Glomerular Filtration 235 ML/MIN Rate Random Glucose 78 MG/DL Calcium Level 6.8 MG/DL Protein Corrected Calcium 8.2 MG/DL Phosphorus Level 0.9 MG/DL Magnesium Level 1.4 MG/DL Total Protein 4.5 GM/DL Administered Medications Medications (Trade) Dose Ordered Sig/Elvia Route PRN Reason Start Time Stop Time Status Last Admin Dose Admin IV Flush (NS Flush) 2 ml UNSCH PRN IV FLUSH FLUSH AFTER USING IV ACCESS 11/12/16 11:00 11/19/16 09:00 IV Flush (NS Flush) 2 ml BID IV FLUSH 11/12/16 21:00 11/27/16 08:44 Acetaminophen (Tylenol) 650 mg Q6H PRN PO PAIN 1-10 AND/OR FEVER >101F 11/12/16 12:00 11/13/16 21:07 Pantoprazole Sodium (Protonix Inj) 40 mg DAILY IV 11/13/16 09:00 11/27/16 08:42 Tiotropium Samaria (Spiriva Inh) 18 mcg DAILY INH 11/13/16 09:00 11/26/16 08:36 Clopidogrel Bisulfate 75 mg 75 mg DAILY PO 11/13/16 09:00 11/27/16 08:43 Norepinephrine Bitartrate (Levophed-Dextrose Drip) 250 ml @ 0 mls/hr TITRATE IV 11/12/16 13:30 11/12/16 18:48 Miscellaneous Information Patient in critical care unit? Ass... Q361D XX 11/12/16 18:30 11/12/16 18:30 Insulin Human Regular 1 1 Q6H SQ 11/13/16 10:15 11/21/16 22:12 Phenylephrine HCl/ Dextrose (Neosynephrine Inj/D5W 500 ml Inj) 500 ml @ 0 mls/hr TITRATE IV 11/14/16 17:15 11/15/16 12:54 Temazepam (Restoril) 7.5 mg HS PRN PO SLEEP 11/15/16 22:45 11/26/16 22:28 Aspirin 81 mg 81 mg DAILY PO 11/16/16 09:00 11/27/16 08:43 Vasopressin/ Dextrose (Pitressin Inj/ D5W 100 ml Inj) 100 ml @ 0 mls/hr Q0M IV 11/18/16 14:45 11/18/16 14:59 Enoxaparin Sodium (Lovenox Inj) 60 mg Q12H SQ 11/20/16 16:00 11/27/16 04:15 Metoprolol Tartrate (Lopressor) 25 mg Q12HR PO 11/22/16 21:00 11/27/16 08:43 Prednisone 20 mg 20 mg DAILY PO 11/23/16 09:00 11/27/16 08:43 Potassium Chloride/Sodium Chloride (NS + KCl 20 Meq Inj) 1,000 ml @ 100 mls/hr Q10H IV 11/23/16 08:00 11/27/16 03:54 Amiodarone HCl (Cordarone) 200 mg DAILY PO 11/23/16 09:00 11/27/16 08:43 Enalapril Maleate (Vasotec) 5 mg DAILY PO 11/26/16 09:00 11/27/16 08:43 Magnesium Oxide 400 mg 400 mg Q12HR PO 11/26/16 21:00 11/27/16 08:43 Ceftriaxone Sodium/Sodium Chloride (Rocephin Inj/NS Inj) 100 ml @ 200 mls/hr Q24H IV 11/27/16 07:00 11/27/16 08:43 Objective Remarks GENERAL: Weak chronically ill male, supine in bed. SKIN: Warm and dry. HEAD: Normocephalic. EYES: No scleral icterus. No injection or drainage. NECK: Supple, trachea midline. CARDIOVASCULAR: +S1/S2 RESPIRATORY: Breath sounds equal bilaterally. No accessory muscle use. GASTROINTESTINAL: Abdomen soft, non-tender, nondistended. EXTREMITIES: No cyanosis. NEUROLOGICAL: awake and alert, normal speech. Assessment/Plan Problem List: (1) Septic shock Status: Acute Plan: --on IV abx --most recent BC with no growth --last positive BC was 11/13 --CT chest showed bilateral pleural effusions, left greater than right. 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 --was some improvement of his tumor bulk with concurrent chemotherapy and radiation. (3) Normocytic anemia Status: Acute Plan: -- recommend keeping his hemoglobin greater than 8. (4) Afib Status: Chronic Plan: --on Lovenox 60mg SQ BID --cardiology following. --on Amiodarone + Lopressor Assessment 65y/o with NSCLC admitted with sepsis. h/o tobacco abuse. COPD. Hypertension. Hyperlipidemia. 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 Pulmonary embolism. Peripheral vascular disease status post revascularization of the lower extremities. History of coronary artery disease/AL, status post cardiac catheterization with PCI and drug eluding stent. Plan 1. monitor CBC, no transfusion today 2. continue antibiotics 3. continue supportive care. Attending Statement The exam, history, and the medical decision-making described in the above note were completed with the assistance of the mid-level provider. I reviewed and agree with the findings presented. I attest that I had a [id number] encounter with the patient on the same day, and personally performed and documented my assessment and findings in the medical record. Lizbeth Cameron Nov 27, 2016 12:36 Rj Monteiro MD Nov 27, 2016 20:55
--- NOTE | 2016-11-27 14:46 | HHI.HCPN ---
Reason for visit a. To assist with evaluation and management of symptoms including: Dyspnea b. To assist medical decision maker(s) with: better understanding of current medical conditions; weighing benefits/burdens of medical treatment options; making medical treatment decisions. . Subjective/Interval History INTERVAL NOTE: The patient says he no longer has dyspnea, and he is not having pain. The chest tube was removed on Sunday/2 days ago, and he says there is no pain there. He is looking forward to his move back to [facility], but it is uncertain what day that will be, but he remains on courses of antibiotics. Although he wants to remain DNR status, he continues to decline the offer of engaging hospice services. . Family/friend interactions is present in the room and participated in the discussion. . Advance Directives Living Will: Never completed Health Care Surrogate: Never completed Durable Power of Customer Assistance Representative: Never completed Objective Vital Signs Date Time Temp Pulse Resp B/P Pulse Ox O2 Delivery O2 Flow Rate FiO2 11/27/16 10:48 90 11/27/16 07:50 96.3 97 20 119/75 94 11/27/16 07:50 96 21 11/27/16 04:00 98.1 98 17 139/86 96 11/26/16 23:48 98.1 95 17 127/83 96 11/26/16 22:00 96 11/26/16 20:05 94 11/26/16 20:00 98.0 90 17 124/74 94 11/26/16 16:30 97.5 78 18 111/82 96 Intake & Output 11/27/16 11/27/16 07:00 19:00 Intake Total 720 ml Output Total 300 ml Balance 420 ml Intake Oral 720 ml Output Urine Total 300 ml # Voids 0 # Bowel Movements 0 Physical Exam CONSTITUTIONAL/GENERAL: This is a profoundly weak and somewhat cachectic patient , in no distress. NECK: Trachea midline. Supple, nontender. No palpable thyroid enlargement or nodularity. CARDIOVASCULAR: Irregularly irregular rhythm without murmurs or rubs. No JVD. Peripheral pulses weak/symmetric. RESPIRATORY/CHEST: Symmetric, mildly labored respirations. Scattered rales and rhonchi. chest tube. GASTROINTESTINAL: Abdomen soft, non-tender, nondistended. No hepato-splenomegaly , or palpable masses. No guarding. Bowel sounds present. MUSCULOSKELETAL: Extremities without clubbing, cyanosis, but there is some 1+ edema in his right arm and both feet.. No joint tenderness or effusion noted. No calf tenderness. No mottling or clubbing. NEUROLOGICAL: Awake and alert. He is weak globally. Follows commands. Cognitively sharp. Moves all extremities. PSYCHIATRIC: No obvious anxiety/depression. no apparent hallucinations or other psychotic thought process. . Diagnostic Tests Laboratory Laboratory Tests Test 11/25/16 11/25/16 11/27/16 06:27 08:28 06:06 White Blood Count 37.4 TH/MM3 37.0 TH/MM3 (4.0-11.0) (4.0-11.0) Red Blood Count 3.15 MIL/MM3 2.77 MIL/MM3 (4.50-5.90) (4.50-5.90) Hemoglobin 8.9 GM/DL 8.0 GM/DL (13.0-17.0) (13.0-17.0) Hematocrit 27.9 % 24.9 % (39.0-51.0) (39.0-51.0) Mean Corpuscular Volume 88.7 FL 89.7 FL (80.0-100.0) (80.0-100.0) Mean Corpuscular Hemoglobin 28.3 PG 28.8 PG (27.0-34.0) (27.0-34.0) Mean Corpuscular Hemoglobin 31.9 % 32.1 % Concent (32.0-36.0) (32.0-36.0) Red Cell Distribution Width 19.2 % 19.2 % (11.6-17.2) (11.6-17.2) Platelet Count 244 TH/MM3 228 TH/MM3 (150-450) (150-450) Mean Platelet Volume 6.9 FL 7.1 FL (7.0-11.0) (7.0-11.0) Phosphorus Level 1.2 MG/DL 0.9 MG/DL (2.5-4.9) (2.5-4.9) Sodium Level 141 MEQ/L 141 MEQ/L (136-145) (136-145) Potassium Level 3.4 MEQ/L 3.2 MEQ/L (3.5-5.1) (3.5-5.1) Chloride Level 109 MEQ/L 108 MEQ/L (98-107) (98-107) Carbon Dioxide Level 22.9 MEQ/L 22.0 MEQ/L (21.0-32.0) (21.0-32.0) Anion Gap 9 MEQ/L (5-15) 11 MEQ/L (5-15) Blood Urea Nitrogen 10 MG/DL (7-18) 8 MG/DL (7-18) Creatinine 0.38 MG/DL 0.37 MG/DL (0.60-1.30) (0.60-1.30) Estimat Glomerular Filtration 228 ML/MIN 235 ML/MIN Rate (>89) (>89) Random Glucose 94 MG/DL 78 MG/DL (74-106) (74-106) Calcium Level 6.8 MG/DL 6.8 MG/DL (8.5-10.1) (8.5-10.1) Protein Corrected Calcium 8.0 MG/DL 8.2 MG/DL (8.5-10.1) (8.5-10.1) Magnesium Level 1.4 MG/DL 1.4 MG/DL (1.5-2.5) (1.5-2.5) Total Protein 4.8 GM/DL 4.5 GM/DL (6.4-8.2) (6.4-8.2) Result Diagram: 11/27/16 0606 11/27/16 0606 Imaging Last Impressions Chest X-Ray 11/23/16 0000 Signed Impressions: Service Date/Time: November 12:24 - CONCLUSION: 1. Small bore chest tube on the left. No pneumothorax. 2. Interval clearing of the pulmonary parenchyma compared to previous. Constantino Huynh MD Chest CT 11/12/16 0000 Signed Impressions: Service Date/Time: Saturday, November 12, 2016 11:23 - CONCLUSION: 1. Bilateral pleural effusions left greater than right. Bilateral dependent parenchymal lung opacity indicating atelectasis. 2. Decrease in size of right hilar and mediastinal mass/enlarged lymph nodes. Prashant Valdez MD Procedures Thoracentesis and thoracostomy, left chest . Assessment and Plan Disease Oriented Problem List: (1) septic shock / UTI / bacteremia (2) hypoxic respiratory failure (3) metastatic adenocarcinoma of lung, s/p radiation and chemotherapy (4) homelessness (5) Pleural effusions, s/p thoracentesis and thoracostomy (6) malnutrition, failure to thrive (7) history of C. 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 They have 2 children locally. Spiritual: He says he is not spiritual or muslim, and he does not desire relay mechanic visits. Legal: The patient has capacity for decision-making at this time. When he loses that capacity in the upcoming days, his will be his proxy decision maker. Ethical issues impacting care: None. . Important Contacts Spouse: Tala Trujillo [phone], but she is almost always at the bedside and staying [place] [facility] [place] essentially [place] . Prognosis The patient is terminal. He likely has just days or weeks to live. . Code Status: No Code Plan * DO NOT RESUSCITATE - per request of patient and spouse 11/16/16. * DECISION-MAKING: The patient has capacity for decision-making at this time. When he loses that capacity in the upcoming days, his will be his proxy decision maker. * GOALS: The patient says that he understands that he is terminal, but he does not want one hospice services at this time. He tells me that his oncologist came by 11/17/16 and informed him that he was too weak to get any more chemotherapy. * SYMPTOMS: The dyspnea has improved, and he has no more pain.. * Hospice will continue to follow. * Palliative Care as well, will continue to follow the patient during this hospitalization. . Time Spent Total Floor Time (mins): 38 Face to Face Time (mins): 20 >50% Counseling/Coord of Care: Yes (d/w Claud[facility] oncology) Attestation To help prompt me to consider important information that might be impacting today's encounter and assessment, information from prior notes written by myself or my colleagues may have been "brought forward" into today's note. My signature on this note, however, is an attestation that I personally performed the exam, history, and/or decision-making noted today, and, unless otherwise indicated, the interactions with patient, family, and staff as well as the review of records all occurred today. I also attest that the listed assessment and stated plan reflect my best clinical judgment today based on the combination of historical information, prior notes, and today's exam/ interactions. When time spent is documented, it refers only to time spent today by the signer, or if indicated, combined time spent today by collaborating physician/nurse practitioner. Luz Martinez MD Nov 27, 2016 14:46
--- NOTE | 2016-11-27 18:18 | HHI.PR ---
Subjective Remarks Better today. Chest tube is out. O2 sat 96 on RA. No fever. On Antibiotics per ID. Objective Vital Signs Date Time Temp Pulse Resp B/P Pulse Ox O2 Delivery O2 Flow Rate FiO2 11/27/16 15:30 97.4 96 20 136/88 95 11/27/16 10:48 90 11/27/16 07:50 96.3 97 20 119/75 94 11/27/16 07:50 96 21 11/27/16 04:00 98.1 98 17 139/86 96 11/26/16 23:48 98.1 95 17 127/83 96 11/26/16 22:00 96 11/26/16 20:05 94 11/26/16 20:00 98.0 90 17 124/74 94 I/O 11/26/16 11/26/16 11/26/16 11/27/16 11/27/16 11/27/16 07:00 15:00 23:00 07:00 15:00 23:00 Intake Total 600 ml 720 ml 240 ml 240 ml 850 ml Output Total 800 ml 250 ml 300 ml 300 ml Balance -800 ml 350 ml 420 ml 240 ml -60 ml 850 ml Intake Oral 600 ml 720 ml 240 ml 240 ml IV Total 850 ml Output Urine Total 800 ml 250 ml 300 ml 300 ml # Voids 0 # Bowel Movements 0 2 1 0 3 Result Diagram: 11/27/1660511/27/16 0606 Procedures Thoracentesis, Pigtail, Chest tube placement. Objective Remarks GENERAL: This is a thinly built elderly man who is pale and and appears chronically ill. HEENT: Head normocephalic. Pupils are reactive. Tongue moist. Throat is dry. Nasal mucosa is clear. NECK: Supple. No bruits or thyroid enlargement. CHEST: Decreased breath sounds at the bases, mostly the right base with occ crackles at the lung bases. HEART: The heart sounds are irregular, S1 and S2, no murmur, no S3. ABDOMEN: Soft, nontender. No organomegaly. Bowel sounds are active. EXTREMITIES: Decreased peripheral pulses. Edema ++ NEUROLOGIC: Reflexes are 1+. The patient does have weakness of the lower extremities with some muscle wasting. SKIN: Dry. MENTAL STATUS: The patient is alert and cooperative. Assessment and Plan Assessment and Plan IMPRESSION 1. Chronic right basilar atelectasis with pleural effusion. 2. Adenocarcinoma of the right lung with metastatic disease. 3. Status post chemotherapy and radiation therapy. 4. History of C. diff colitis. 5. History of coronary artery disease. 6. Hypertension. Plan : 1. O2 at 2 L.PRN and at HS 2. IS q4h at bedside. 3. PT evaluation. 4. Cont Antibiotics Per ID. 5. prednisone 10 mg daily. 6. [place] brown qid. Rubia Lora MD Nov 27, 2016 18:18
[2016-11-27] MEDS: TEMAZEPAM 7.5 MG CAP PO PRN (22:16)
[2016-11-27] MEDS: ACETAMINOPHEN 325 MG TAB PO PRN (22:34)
[2016-11-28] VITALS (9 sets, daily range): BP systolic 99–127; BP diastolic 63–80; PULSE 86–103; RESP 16–18; TEMP 97.2–98.3; O2SAT 93–96
[2016-11-28] MEDS: INSULIN NovoLIN REGULAR SUPPLEMENTAL SCALE SQ SCH ×4 (04:15→22:15)
[2016-11-28] MEDS: ENOXAPARIN SODIUM 60 MG/0.6 ML SYRINGE SQ SCH ×2 (05:16→17:26)
[2016-11-28] MEDS: cefTRIAXone INJ 2,000 MG in SODIUM CHLORIDE 0.9% INJ 100 ML IV SCH (06:08)
[2016-11-28] MEDS ORDERED: POTASSIUM PHOSPHATE INJ 30 MMOL in SODIUM CHLOR 0.9% 250 ML INJ 250 ML IV ONE (08:00)
[2016-11-28] MEDS ORDERED: MAGNESIUM SULFATE 1 GM PREMIX 100 ML IV SCH (08:00)
[2016-11-28] MEDS ORDERED: MAGNESIUM SULFATE 1 GM PREMIX 100 ML IV ONE (08:00)
[2016-11-28] MEDS: MAGNESIUM OXIDE 400 MG TAB PO SCH ×2 (08:25→21:41)
[2016-11-28] MEDS: ENALAPRIL MALEATE 5 MG TAB PO SCH (08:26)
[2016-11-28] MEDS: METOPROLOL TARTRATE 25 MG TAB PO SCH ×2 (08:26→21:41)
[2016-11-28] MEDS: CLOPIDOGREL 75 MG TAB PO SCH (08:26)
[2016-11-28] MEDS: AMIODARONE 200 MG TAB PO SCH (08:26)
[2016-11-28] MEDS: SODIUM CHLORIDE 0.9% FLUSH 5 ML FLUSH IV FLUSH SCH ×2 (08:26→21:00)
[2016-11-28] MEDS: ASPIRIN EC 81 MG TABEC PO SCH (08:26)
[2016-11-28] MEDS: predniSONE 10 MG TAB PO SCH (08:26)
[2016-11-28] MEDS: NS + KCL 20 MEQ INJ 1,000 ML IV SCH ×2 (08:27→17:26)
[2016-11-28] MEDS: PANTOPRAZOLE SODIUM 40 MG VIAL IV SCH (08:27)
[2016-11-28] MEDS: TIOTROPIUM BROMIDE 18 MCG INH INH SCH (09:00)
[2016-11-28] MEDS: RESP: ALBUTEROL 2.5 MG/IPRATROPIUM 0.5 MG NEB (SCH) NEB ×3 (09:27→19:45)
--- NOTE | 2016-11-28 10:33 | PD.ONC.PN ---
Subjective Subjective Remarks Afebrile overnight. patient has no complaints. No overnight events. Objective Data Date Time Temp Pulse Resp B/P Pulse Ox O2 Delivery O2 Flow Rate FiO2 11/28/16 09:27 96 21 11/28/16 08:00 97.6 91 16 127/77 93 11/28/16 04:00 97.6 97 17 112/73 94 11/27/16 20:21 105 11/27/16 20:07 92 11/27/16 20:00 97.4 102 18 129/74 97 11/27/16 15:30 97.4 96 20 136/88 95 11/27/16 10:48 90 11/28/16 11/28/16 11/28/16 07:00 15:00 23:00 Intake Total 800 ml Output Total 300 ml Balance 500 ml Result Diagram: 11/27/16 0606 11/27/16 0606 Administered Medications Medications (Trade) Dose Ordered Sig/Elvia Route PRN Reason Start Time Stop Time Status Last Admin Dose Admin IV Flush (NS Flush) 2 ml UNSCH PRN IV FLUSH FLUSH AFTER USING IV ACCESS 11/12/16 11:00 11/19/16 09:00 IV Flush (NS Flush) 2 ml BID IV FLUSH 11/12/16 21:00 11/28/16 08:26 Acetaminophen (Tylenol) 650 mg Q6H PRN PO PAIN 1-10 AND/OR FEVER >101F 11/12/16 12:00 11/27/16 22:34 Pantoprazole Sodium (Protonix Inj) 40 mg DAILY IV 11/13/16 09:00 11/28/16 08:27 Tiotropium [place] (Spiriva Inh) 18 mcg DAILY INH 11/13/16 09:00 11/26/16 08:36 Clopidogrel Bisulfate 75 mg 75 mg DAILY PO 11/13/16 09:00 11/28/16 08:26 Norepinephrine Bitartrate (Levophed-Dextrose Drip) 250 ml @ 0 mls/hr TITRATE IV 11/12/16 13:30 11/12/16 18:48 Miscellaneous Information Patient in critical care unit? Ass... [id number] XX 11/12/16 18:30 11/12/16 18:30 Insulin Human Regular 1 1 Q6H SQ 11/13/16 10:15 11/21/16 22:12 Phenylephrine HCl/ Dextrose (Neosynephrine Inj/D5W 500 ml Inj) 500 ml @ 0 mls/hr TITRATE IV 11/14/16 17:15 11/15/16 12:54 Temazepam (Restoril) 7.5 mg HS PRN PO SLEEP 11/15/16 22:45 11/27/16 22:16 Aspirin 81 mg 81 mg DAILY PO 11/16/16 09:00 11/28/16 08:26 Vasopressin/ Dextrose (Pitressin Inj/ D5W 100 ml Inj) 100 ml @ 0 mls/hr Q0M IV 11/18/16 14:45 11/18/16 14:59 Enoxaparin Sodium (Lovenox Inj) 60 mg Q12H SQ 11/20/16 16:00 11/28/16 05:16 Metoprolol Tartrate 25 mg 25 mg Q12HR PO 11/22/16 21:00 11/28/16 08:26 Potassium Chloride/Sodium Chloride (NS + KCl 20 Meq Inj) 1,000 ml @ 100 mls/hr Q10H IV 11/23/16 08:00 11/28/16 08:27 Amiodarone HCl (Cordarone) 200 mg DAILY PO 11/23/16 09:00 11/28/16 08:26 Enalapril Maleate (Vasotec) 5 mg DAILY PO 11/26/16 09:00 11/28/16 08:26 Magnesium Oxide 400 mg 400 mg Q12HR PO 11/26/16 21:00 11/28/16 08:25 Ceftriaxone Sodium/Sodium Chloride (Rocephin Inj/NS Inj) 100 ml @ 200 mls/hr Q24H IV 11/27/16 07:00 11/28/16 06:08 Prednisone (Deltasone) 10 mg DAILY PO 11/28/16 09:00 11/28/16 08:26 Objective Remarks GENERAL: Weak male, lying on bed, in upright position SKIN: Warm and dry. HEAD: Normocephalic. EYES: No scleral icterus. No injection or drainage. NECK: Supple, trachea midline. CARDIOVASCULAR: +S1/S2 RESPIRATORY: Breath sounds equal bilaterally. No accessory muscle use. GASTROINTESTINAL: Abdomen soft, non-tender, nondistended. EXTREMITIES: No cyanosis. NEUROLOGICAL: awake, normal speech oriented x 3 Assessment/Plan Problem List: (1) Septic shock Status: Acute Plan: --on IV abx--Rocephin per ID --most recent BC with no growth --last positive BC was 11/13 --CT chest showed bilateral pleural effusions, left greater than right. 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 --was some improvement of his tumor bulk with concurrent chemotherapy and radiation. (3) Normocytic anemia Status: Acute Plan: -- recommend keeping his hemoglobin greater than 8. (4) Afib Status: Chronic Plan: --on Lovenox 60mg SQ BID --cardiology following. --on Amiodarone + Lopressor Assessment 65y/o with NSCLC admitted with sepsis. h/o tobacco abuse. COPD. Hypertension. Hyperlipidemia. 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 Pulmonary embolism. Peripheral vascular disease status post revascularization of the lower extremities. History of coronary artery disease/MD, status post cardiac catheterization with PCI and drug eluding stent. Plan 1. await CBC today--may need transfusion 2. continue supportive care. Attending Statement The exam, history, and the medical decision-making described in the above note were completed with the assistance of the mid-level provider. I reviewed and agree with the findings presented. I attest that I had a [id number] encounter with the patient on the same day, and personally performed and documented my assessment and findings in the medical record. Replace magnesium and Phosph. transfuse 1 unit of pRBC on Lovenox for pulmonary embolism lekocytosis os parttly reactive On ceftriaxone d/w Lizbeth Sims Nov 28, 2016 10:33 Rj Monteiro MD Nov 28, 2016 20:13
--- NOTE | 2016-11-28 11:04 | HHI.PR ---
Subjective Remarks This is a 64-year-old male with history of COPD, hypertension, coronary artery disease, STEMI on 07/08/16 s/p PCI and DELMY (Dr. Crouch), history of C. difficile colitis, non-small cell lung cancer receiving chemoradiation per Dr. Monteiro, history of pulmonary embolism on Lovenox who was admitted to hospital recently from 07/08-08/31/16 with above diagnoses. noted Mediastinal and Lung mass, as Non Small Cell Lung Cancer(Adenocarcinoma), status post Bronchoscopy. Brought from alf with fever, Hypotension, Encephalopathy, Septic, UTI, HCAP, ID specialist following, was in Intensive Care Unit received Zosyn in ER and given Cefepime and Flagyl by adult specialist and Vancomycin. Customer Relations Assistant Notes. 11/13 Patient is on 35% VM, afebrile. Off Levophed 11/14 Patient was started on Cardizem drip 15mg/hr overnight in addition was given Lopressor 2.5mg IV x1 for tachycardia. Afebrile. On Heparin drip. s/p transfusion 1u PRBC for Hgb 6.9 now 8.1. 11/15 Patient is on Neosyn 40 mics, off vasopressin. He was given Amiodarone bolus overnight for Afib with RVR HR remains 120-130's. Afebrile. 11/16: Remains on Cardizem and amiodarone. Off vasopressors. Patient's CXR appears worse. He does not appear in distress. Palliative care consulted and family and patient will decide on hospice after d/w Dr. Monteiro 11/17: Bedside ultrasound shows fairly large left pleural effusion despite chest tube. Possibly loculated. We'll hold off thoracentesis to additional chest tube and the patient makes decisions about comfort measures versus aggressive care. Patient waiting to talk to Dr. Monteiro to decide on hospice 11/18: Patient declined hospice and wants to continue aggressive care at this time. White count has increased to 48.9 with 97% neutrophils, I have requested ID reevaluation. Large right pleural effusion drained today 1.2 L clear fluid. UO 4L in 24 hours 11/19/16: Patient had right thoracentesis yesterday 11/18 with 1.2 L pleural fluid removed. A new left pigtail chest tube was placed also yesterday 11/18 with 580 mL of slightly blood-tinged pleural fluid removal over 24 hours. Patient now on nasal cannula tolerating well. Left 32 Serbian chest tube was removed today 11/20: Breathing more comfortably now. Large bore chest tube removed yesterday. No pneumothorax. WBC count slightly improved from 45.5 to 42.5 11/21 No acute events overnight. Patient is lying in bed in NAD. Afebrile. WBC 43 11/22 Patient is on 2L oxygen with good sats. Afebrile. WBC 39 today from 43. Awake and alert. 11/23 No acute events overnight. WBC trending down 36 today. Afebrile. 11/24 patient transferred to Hospitalist team for today. as per Infectious Disease specialist MSSA Bacteremia, MSSA in Urine, Pneumonia with Effusions, Proteus UTI, Prior history of Diarrhea, Discontinued Vancomycin, Discontinued Micafungin continued Cefepime and Flagyl by mouth, check C Diff PCR. 11/25 Patient stable in his bedroom, discussed with nurse Chio Moreno replacing Phosphorus level. 11/26 Patient stable in his bedroom no nausea, vomit or diarrhea, discussed with patient and his . and nurse 11/27 Seen in the room in the presence of his , unable to continue further management for his Cancer due to multiple comorbidities, editorial specialist recommends to keep Hemoglobin over 8 , continue Lovenox, CAD Cardiology following, to continue supportive care, as per ID specialist MSSA Bacteremia, BC negative, Pneumonia with effusions Proteus UTI catheter related, Prior C Diff, Persistent Leukocytosis, recommended to continue Rocephin 11/28 Seen in his bedroom in the presence of nurse Hailey, continue present care, no complaint of Nausea, vomit or diarrhea multiple generalized Ecchymosis. Objective Vital Signs Date Time Temp Pulse Resp B/P Pulse Ox O2 Delivery O2 Flow Rate FiO2 11/28/16 10:44 86 11/28/16 09:27 96 21 11/28/16 08:00 97.6 91 16 127/77 93 11/28/16 04:00 97.6 97 17 112/73 94 11/27/16 20:21 105 11/27/16 20:07 92 11/27/16 20:00 97.4 102 18 129/74 97 11/27/16 15:30 97.4 96 20 136/88 95 I/O 3/03/1011/27/16 11/27/16 11/28/16 11/28/16 11/28/16 07:00 15:00 23:00 07:00 15:00 23:00 Intake Total 240 ml 240 ml 1700 ml 800 ml Output Total 300 ml 500 ml 300 ml Balance 240 ml -60 ml 1200 ml 500 ml Intake Oral 240 ml 240 ml IV Total 1700 ml 800 ml Output Urine Total 300 ml 500 ml 300 ml # Voids 0 1 # Bowel Movements 0 3 1 1 1 Result Diagram: 11/27/16 0606 11/27/16 0606 Imaging Last Impressions Chest X-Ray 11/23/16 0000 Signed Impressions: Service Date/Time: November 12:24 - CONCLUSION: 1. Small bore chest tube on the left. No pneumothorax. 2. Interval clearing of the pulmonary parenchyma compared to previous. Constantino Huynh MD Chest CT 11/12/16 0000 Signed Impressions: Service Date/Time: Saturday, November 12, 2016 11:23 - CONCLUSION: 1. Bilateral pleural effusions left greater than right. Bilateral dependent parenchymal lung opacity indicating atelectasis. 2. Decrease in size of right hilar and mediastinal mass/enlarged lymph nodes. Prashant Valdez MD Procedures Thoracentesis, Pigtail, Chest tube placement. Other Results Laboratory Tests Test 11/24/16 11/24/16 11/27/16 05:51 10:51 06:06 Total Bilirubin 0.3 MG/DL Aspartate Amino Transf 8 U/L (AST/SGOT) Alanine Aminotransferase LESS THAN 6 U/L (ALT/SGPT) Alkaline Phosphatase 80 U/L Albumin 1.7 GM/DL Neutrophils (%) (Auto) % Lymphocytes (%) (Auto) % Monocytes (%) (Auto) % Eosinophils (%) (Auto) % Basophils (%) (Auto) % Neutrophils # (Auto) TH/MM3 Lymphocytes # (Auto) TH/MM3 Monocytes # (Auto) TH/MM3 Eosinophils # (Auto) TH/MM3 Basophils # (Auto) TH/MM3 CBC Comment AUTO DIFF Differential Total Cells 100 Counted Neutrophils % (Manual) 90 % Lymphocytes % 3 % Monocytes % 7 % Neutrophils # (Manual) 43.7 TH/MM3 Differential Comment FINAL DIFF MANUAL Platelet Estimate NORMAL Platelet Morphology Comment NORMAL Ovalocytes 1+ Acanthocytes OCC Hematology Comments White Blood Count 37.0 TH/MM3 Red Blood Count 2.77 MIL/MM3 Hemoglobin 8.0 GM/DL Hematocrit 24.9 % Mean Corpuscular Volume 89.7 FL Mean Corpuscular Hemoglobin 28.8 PG Mean Corpuscular Hemoglobin 32.1 % Concent Red Cell Distribution Width 19.2 % Platelet Count 228 TH/MM3 Mean Platelet Volume 7.1 FL Sodium Level 141 MEQ/L Potassium Level 3.2 MEQ/L Chloride Level 108 MEQ/L Carbon Dioxide Level 22.0 MEQ/L Anion Gap 11 MEQ/L Blood Urea Nitrogen 8 MG/DL Creatinine 0.37 MG/DL Estimat Glomerular Filtration 235 ML/MIN Rate Random Glucose 78 MG/DL Calcium Level 6.8 MG/DL Protein Corrected Calcium 8.2 MG/DL Phosphorus Level 0.9 MG/DL Magnesium Level 1.4 MG/DL Total Protein 4.5 GM/DL Objective Remarks GENERAL: Patient is lying in be din NAD SKIN: Warm and dry. HEAD: Normocephalic. EYES: No scleral icterus. No injection or drainage. NECK: Supple, trachea midline. No JVD or lymphadenopathy. CARDIOVASCULAR: Regular rate and rhythm without murmurs, gallops, or rubs. RESPIRATORY: Breath sounds equal bilaterally. No accessory muscle use. GASTROINTESTINAL: Abdomen soft, non-tender, nondistended. MUSCULOSKELETAL: No cyanosis, or edema. BACK: Nontender without obvious deformity. No CVA tenderness. Neuro: Awake and alert Medications and IVs Current Medications Medications (Trade) Dose Ordered Sig/Elvia Route Start Time Stop Time Status Last Admin (NS Flush) 2 ml UNSCH PRN IV FLUSH 11/12/16 11:00 11/19/16 09:00 (NS Flush) 2 ml BID IV FLUSH 11/12/16 21:00 11/28/16 08:26 (Tylenol) 650 mg Q6H PRN PO 11/12/16 12:00 11/27/16 22:34 (Protonix Inj) 40 mg DAILY IV 11/13/16 09:00 11/28/16 08:27 (Spiriva Inh) 18 mcg DAILY INH 11/13/16 09:00 11/26/16 08:36 Clopidogrel Bisulfate 75 mg 75 mg DAILY PO 11/13/16 09:00 11/28/16 08:26 (Levophed-Dextrose Drip) 250 ml @ 0 mls/hr TITRATE IV 2/19/17 13:30 11/12/16 18:48 Miscellaneous Information Patient in critical care unit? Ass... Q361D XX 11/12/16 18:30 11/12/16 18:30 (D50w (Vial) Inj) 25 ml UNSCH PRN IV PUSH 11/13/16 10:15 (Glucagon Inj) 1 mg UNSCH PRN OTHER 11/13/16 10:15 Insulin Human Regular 1 1 Q6H SQ 11/13/16 10:15 11/21/16 22:12 (Neosynephrine Inj/D5W 500 ml Inj) 500 ml @ 0 mls/hr TITRATE IV 11/14/16 17:15 11/15/16 12:54 (Brethine Inj) 1 mg UNSCH PRN SQ 11/14/16 16:15 (Restoril) 7.5 mg HS PRN PO 11/15/16 22:45 11/27/16 22:16 Aspirin 81 mg 81 mg DAILY PO 11/16/16 09:00 11/28/16 08:26 (Pitressin Inj/ D5W 100 ml Inj) 100 ml @ 0 mls/hr Q0M IV 11/18/16 14:45 11/18/16 14:59 (Lovenox Inj) 60 mg Q12H SQ 11/20/16 16:00 11/28/16 05:16 (Pill Splitter) 1 ea UNSCH PRN OTHER 11/21/16 11:00 Metoprolol Tartrate 25 mg 25 mg Q12HR PO 11/22/16 21:00 11/28/16 08:26 (NS + KCl 20 Meq Inj) 1,000 ml @ 100 mls/hr Q10H IV 11/23/16 08:00 11/28/16 08:27 (Cordarone) 200 mg DAILY PO 11/23/16 09:00 11/28/16 08:26 (Vasotec) 5 mg DAILY PO 11/26/16 09:00 11/28/16 08:26 Magnesium Oxide 400 mg 400 mg Q12HR PO 11/26/16 21:00 11/28/16 08:25 (Rocephin Inj/NS Inj) 100 ml @ 200 mls/hr Q24H IV 11/27/16 07:00 11/28/16 06:08 Prednisone 10 mg 10 mg DAILY PO 11/28/16 09:00 11/28/16 08:26 (Potassium Phosphate Inj/NS 250 ml Inj) 260 ml @ 43.333 mls/ hr ONCE ONCE IV 11/28/16 08:00 11/28/16 13:59 11/28/16 08:00 A/P Assessment and Plan 1. Acute Metabolic Encephalopathy Resolved. 2. Respiratory Insufficiency/Bilateral Pleural Effusion/Possible HCAP/COPD/ Adenocarcinoma of the lung/History of PE continue to keep oxygen saturation over 92%, Bronchodilator, Mucolytic, incentive spirometry, Steroids. Status post Chest tube placement 11/12 Exudate effusion per LDH criteria, removed 11/19/16 Cytology negative for malignancy, Status post right thoracentesis with 1.2 L fluid removed, Transudate status post Pigtail catheter drainage of Lower pleural effusion, 11/18/16. Removed Chest tube. 3. Acute on chronic systolic heart failure, Ischemic cardiomyopathy, Atrial Fibrillation with RVR. 4. Hypotension/CAD/status post STEMI 07/08/16 with PCI/DELMY to D1, on Amiodarone 400 mg daily and Metoprolol 12.5 mg BID. EF 30-35% Continue Plavix. 5. Diarrhea/History of C Diff Colitis. On Protonix as per Clinical Laboratory Medical Director. 6. Staph aureus Bacteremia/Severe Sepsis with worsening Leukocytosis, UTI/ Possible HCAP, History of C Diff Colitis ID following, he was on Vancomycin, Cefepime, Micafungin, Flagyl by mouth at this time, continue on Ceftriaxone with Diagnosis of MSSA Bacteremia, BC negative, Pneumonia with effusions, Proteus UTI Catheter related. Continue management as per ID specialist Doctor Marilu, IV Vancomycin, Cefepime, Micafungin IV, Flagyl by Mouth Urine Proteus Mirabilis Staph species. Prior C diff. and persistent Leukocytosis. 7. Non Small cell lung cancer/Pulmonary Emboli diagnosed 07/08/16. on Chemoradiation therapy by Doctor Monteiro editorial specialist following, Doctor Monteiro, Lovenox 60 mg q12 hours. 8. Electrolyte derangement Phosphorus and magnesium replaced and following. asked for new BMP, magnesium and phosphorus level. Bilateral lower extremity SCDs. On Lovenox 60 mg subcutaneous every 12, IV Protonix Following recommendations by PT/OT. Discussed with patient and nurse in the room. Discharge Planning Not yet cleared by provider enrollment specialist for discharge. Chaka Larson MD Nov 28, 2016 11:04
[2016-11-28 12:03] LABS: HEMATOCRIT 24.6 % (39.0-51.0); MEAN CELL VOLUME 89.7 FL (80.0-100.0); MEAN CORPUSCULAR HEMOGLOBIN 28.6 PG (27.0-34.0); MEAN CORPUSCULAR HGB CONC 31.9 % (32.0-36.0); PLATELET COUNT 202 TH/MM3 (150-450); RED BLOOD COUNT 2.74 MIL/MM3 (4.50-5.90)
[2016-11-28 12:05] LABS: REVIEW FLAG FINAL
--- NOTE | 2016-11-28 13:02 | RADRPT ---
EXAM DATE/TIME: 11/28/2016 11:38 [facility] COMPARISON: CHEST SINGLE AP, November 23, 2016, 12:24. INDICATIONS : Short of breath. Evaluate for pneumonia per order. MEDICAL HISTORY : Hypertension. Chronic obstructive pulmonary disease. SURGICAL HISTORY : Appendectomy. ENCOUNTER: Subsequent ACUITY: 1 week PAIN SCORE: 4/10 LOCATION: Bilateral chest FINDINGS: Portable AP view of the chest demonstrates a normal-sized cardiac silhouette. There is a stable right basilar pleural-parenchymal opacity. A small left pleural based opacity and hazy opacity left lower lung zone is present. No pneumothorax is visualized. Left chest tube has been removed. Bones and soft tissues demonstrate no acute finding. CONCLUSION: Stable small right pleural effusion with associative volume loss and/or consolidation. Trace left pleural effusion with airspace consolidation in the left lower lung zone. Sy Whitehead MD on November 28, 2016 at 13:00 Board Certified Radiologist. This report was verified electronically.
--- NOTE | 2016-11-28 13:31 | HHI.HCPN ---
Reason for visit a. To assist with evaluation and management of symptoms including: Dyspnea b. To assist medical decision maker(s) with: better understanding of current medical conditions; weighing benefits/burdens of medical treatment options; making medical treatment decisions. . Subjective/Interval History INTERVAL NOTE: The patient says he no longer has dyspnea, and he is not having pain; no new complaints. The chest tube was removed on Sunday/3 days ago, and he says there is no pain there, or any dyspnea. He is looking forward to his move back to [facility], but it is uncertain what day that will be, but he reports that that will be after he concludes the antibiotics (Rocephin now).. He remains afebrile, white count is 34, total protein is down to 4.5, and the new chest x-ray reveals stable pleural effusions. He signed a [facility] DNR form today. . Family/friend interactions present for the discussions . Advance Directives Living Will: Never completed Health Care Surrogate: Never completed Durable Power of Employee Counselor: Never completed Objective Vital Signs Date Time Temp Pulse Resp B/P Pulse Ox O2 Delivery O2 Flow Rate FiO2 11/28/16 12:00 97.6 88 16 110/80 95 11/28/16 10:44 86 11/28/16 09:27 96 21 11/28/16 08:00 97.6 91 16 127/77 93 11/28/16 04:00 97.6 97 17 112/73 94 11/27/16 20:21 105 11/27/16 20:07 92 11/27/16 20:00 97.4 102 18 129/74 97 11/27/16 15:30 97.4 96 20 136/88 95 Intake & Output 11/28/16 11/28/16 07:00 19:00 Intake Total 1650 ml Output Total 800 ml Balance 850 ml IV Total 1650 ml Output Urine Total 800 ml # Voids 1 # Bowel Movements 2 2 Physical Exam CONSTITUTIONAL/GENERAL: This is a profoundly weak and somewhat cachectic patient , in no distress. NECK: Trachea midline. Supple, nontender. No palpable thyroid enlargement or nodularity. CARDIOVASCULAR: Irregularly irregular rhythm without murmurs or rubs. No JVD. Peripheral pulses weak/symmetric. RESPIRATORY/CHEST: Symmetric, mildly labored respirations. Scattered rales and rhonchi. chest tube. GASTROINTESTINAL: Abdomen soft, non-tender, nondistended. No hepato-splenomegaly , or palpable masses. No guarding. Bowel sounds present. MUSCULOSKELETAL: Extremities without clubbing, cyanosis, but there is some 1+ edema in his right arm and both feet.. No joint tenderness or effusion noted. No calf tenderness. No mottling or clubbing. NEUROLOGICAL: Awake and alert. He is weak globally. Follows commands. Cognitively sharp. Moves all extremities. PSYCHIATRIC: No obvious anxiety/depression. no apparent hallucinations or other psychotic thought process. . Diagnostic Tests Laboratory Laboratory Tests Test 11/27/16 11/28/16 06:06 11:35 White Blood Count 37.0 TH/MM3 34.0 TH/MM3 (4.0-11.0) (4.0-11.0) Red Blood Count 2.77 MIL/MM3 2.74 MIL/MM3 (4.50-5.90) (4.50-5.90) Hemoglobin 8.0 GM/DL 7.8 GM/DL (13.0-17.0) (13.0-17.0) Hematocrit 24.9 % 24.6 % (39.0-51.0) (39.0-51.0) Mean Corpuscular Volume 89.7 FL 89.7 FL (80.0-100.0) (80.0-100.0) Mean Corpuscular Hemoglobin 28.8 PG 28.6 PG (27.0-34.0) (27.0-34.0) Mean Corpuscular Hemoglobin 32.1 % 31.9 % Concent (32.0-36.0) (32.0-36.0) Red Cell Distribution Width 19.2 % 19.0 % (11.6-17.2) (11.6-17.2) Platelet Count 228 TH/MM3 202 TH/MM3 (150-450) (150-450) Mean Platelet Volume 7.1 FL 7.0 FL (7.0-11.0) (7.0-11.0) Sodium Level 141 MEQ/L (136-145) Potassium Level 3.2 MEQ/L (3.5-5.1) Chloride Level 108 MEQ/L (98-107) Carbon Dioxide Level 22.0 MEQ/L (21.0-32.0) Anion Gap 11 MEQ/L (5-15) Blood Urea Nitrogen 8 MG/DL (7-18) Creatinine 0.37 MG/DL (0.60-1.30) Estimat Glomerular Filtration 235 ML/MIN Rate (>89) Random Glucose 78 MG/DL (74-106) Calcium Level 6.8 MG/DL (8.5-10.1) Protein Corrected Calcium 8.2 MG/DL (8.5-10.1) Phosphorus Level 0.9 MG/DL (2.5-4.9) Magnesium Level 1.4 MG/DL (1.5-2.5) Total Protein 4.5 GM/DL (6.4-8.2) Result Diagram: 11/28/16 1135 11/27/16 0606 Imaging Last Impressions Chest X-Ray 11/28/16 0000 Signed Impressions: Service Date/Time: Monday, November 28, 2016 11:38 - CONCLUSION: Stable small right pleural effusion with associative volume loss and/or consolidation. Trace left pleural effusion with airspace consolidation in the left lower lung zone. Sy Whitehead MD Chest CT 11/12/16 0000 Signed Impressions: Service Date/Time: Saturday, November 12, 2016 11:23 - CONCLUSION: 1. Bilateral pleural effusions left greater than right. Bilateral dependent parenchymal lung opacity indicating atelectasis. 2. Decrease in size of right hilar and mediastinal mass/enlarged lymph nodes. Prashant Valdez MD Procedures Thoracentesis and thoracostomy, left chest . Assessment and Plan Disease Oriented Problem List: (1) septic shock / UTI / bacteremia (2) hypoxic respiratory failure (3) metastatic adenocarcinoma of lung, s/p radiation and chemotherapy (4) homelessness (5) Pleural effusions, s/p thoracentesis and thoracostomy (6) malnutrition, failure to thrive (7) history of C. 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 They have 2 children locally. Spiritual: He says he is not spiritual or sabianist, and he does not desire permaculture contractor visits. Legal: The patient has capacity for decision-making at this time. When he loses that capacity in the upcoming days, his will be his proxy decision maker. Ethical issues impacting care: None. . Important Contacts Spouse: Tala Trujillo [phone], but she is almost always at the bedside and staying overnight in the [facility] since they are essentially homeless . Prognosis The patient is terminal. He likely has just days or weeks to live. . Code Status: No Code Plan * DO NOT RESUSCITATE - per request of patient and spouse 11/16/16. * DECISION-MAKING: The patient has capacity for decision-making at this time. When he loses that capacity in the upcoming days, his will be his proxy decision maker. * GOALS: The patient says that he understands that he is terminal, but he does not want one hospice services at this time. He tells me that his oncologist came by 11/17/16 and informed him that he was too weak to get any more chemotherapy. * SYMPTOMS: The dyspnea has improved, and he has no more pain.. * Hospice is following this patient. * DISPOSITION: The patient will be returning to [facility] sometime soon. The [facility] DNR form is on his chart. * Palliative Care will continue to follow the patient periodically. . Time Spent Total Floor Time (mins): 29 Face to Face Time (mins): 16 >50% Counseling/Coord of Care: Yes Attestation To help prompt me to consider important information that might be impacting today's encounter and assessment, information from prior notes written by myself or my colleagues may have been "brought forward" into today's note. My signature on this note, however, is an attestation that I personally performed the exam, history, and/or decision-making noted today, and, unless otherwise indicated, the interactions with patient, family, and staff as well as the review of records all occurred today. I also attest that the listed assessment and stated plan reflect my best clinical judgment today based on the combination of historical information, prior notes, and today's exam/ interactions. When time spent is documented, it refers only to time spent today by the signer, or if indicated, combined time spent today by collaborating physician/nurse practitioner. Luz Martinez MD Nov 28, 2016 13:31
--- NOTE | 2016-11-28 14:53 | HHI.IDPN ---
Subjective Subjective Remarks is a 65 y/o CM who looks older than stated age. His PMHx is significant for COPD, pulmonary embolism, non-small cell lung cancer diagnosis adenocarcinoma along with the mediastinal mass status post chemotherapy as well as radiation therapy who follows with Dr. Rj Monteiro. Patient was recently admitted on July 08, 2016 for chest pain diagnosed with ST elevation NH status post PCI and DELMY by Dr. Crouch cardiology. Patient also was admitted between July 08 to August 31, 2016 and underwent evaluation with diagnosis of non-small cell adenoca lung cancer. At that time was noted to have a lung mass which was invading bilateral mainstem bronchi this was diagnosed to be adenocarcinoma non-small cell lung cancer. He had complete atelectasis of the right lung which required bronchoscopy 2. Patient also underwent chemoradiation therapy and the obstruction was resolved reportedly. Notes reviewed Temps ok. Not SOB, on RA Has some cough, occ brings up white phlegm 3 BM recorded, C diff negative WBC same 34k No rash No itching Overall feels better Reports difficulty sleeping: lopez RN to discuss with primary team. Antibiotics Rocephin Lines Line sites with no e/o infection Past Medical History reviewed Allergies: Coded Allergies: No Known Allergies (Unverified , 07/08/16) Objective . Vital Signs Date Time Temp Pulse Resp B/P Pulse Ox O2 Delivery O2 Flow Rate FiO2 11/28/16 12:00 97.6 88 16 110/80 95 11/28/16 10:44 86 11/28/16 09:27 96 21 11/28/16 08:00 97.6 91 16 127/77 93 11/28/16 04:00 97.6 97 17 112/73 94 11/27/16 20:21 105 11/27/16 20:07 92 11/27/16 20:00 97.4 102 18 129/74 97 11/27/16 15:30 97.4 96 20 136/88 95 11/27/16 11/27/16 11/28/16 15:00 23:00 07:00 Intake Total 240 ml 1700 ml 800 ml Output Total 300 ml 500 ml 300 ml Balance -60 ml 1200 ml 500 ml Intake Oral 240 ml IV Total 1700 ml 800 ml Output Urine Total 300 ml 500 ml 300 ml # Bowel Movements 3 1 1 . Laboratory Tests Test 11/27/16 11/28/16 06:06 11:35 White Blood Count 37.0 TH/MM3 34.0 TH/MM3 Red Blood Count 2.77 MIL/MM3 2.74 MIL/MM3 Hemoglobin 8.0 GM/DL 7.8 GM/DL Hematocrit 24.9 % 24.6 % Mean Corpuscular Volume 89.7 FL 89.7 FL Mean Corpuscular Hemoglobin 28.8 PG 28.6 PG Mean Corpuscular Hemoglobin 32.1 % 31.9 % Concent Red Cell Distribution Width 19.2 % 19.0 % Platelet Count 228 TH/MM3 202 TH/MM3 Mean Platelet Volume 7.1 FL 7.0 FL Laboratory Tests Test 11/27/16 06:06 Sodium Level 141 MEQ/L Potassium Level 3.2 MEQ/L Chloride Level 108 MEQ/L Carbon Dioxide Level 22.0 MEQ/L Anion Gap 11 MEQ/L Blood Urea Nitrogen 8 MG/DL Creatinine 0.37 MG/DL Estimat Glomerular Filtration 235 ML/MIN Rate Random Glucose 78 MG/DL Calcium Level 6.8 MG/DL Protein Corrected Calcium 8.2 MG/DL Phosphorus Level 0.9 MG/DL Magnesium Level 1.4 MG/DL Total Protein 4.5 GM/DL Imaging Chest X-Ray 11/23/16 0000 Signed Impressions: Service Date/Time: November 12:24 - CONCLUSION: 1. Small bore chest tube on the left. No pneumothorax. 2. Interval clearing of the pulmonary parenchyma compared to previous. Constantino Huynh MD Chest CT 11/12/16 0000 Signed Impressions: Service Date/Time: Saturday, November 12, 2016 11:23 - CONCLUSION: 1. Bilateral pleural effusions left greater than right. Bilateral dependent parenchymal lung opacity indicating atelectasis. 2. Decrease in size of right hilar and mediastinal mass/enlarged lymph nodes. Prashant Valdez MD Chest X-Ray 11/18/16 0600 Signed Impressions: Service Date/Time: Friday, November 18, 2016 03:34 - CONCLUSION: Bilateral effusions and consolidation are again seen right greater than left. Left subclavian line and left-sided chest tube are present. I do not see a pneumothorax. Heart size normal. Jan Arias MD Chest CT 11/12/16 0000 Signed Impressions: Service Date/Time: Saturday, November 12, 2016 11:23 - CONCLUSION: 1. Bilateral pleural effusions left greater than right. Bilateral dependent parenchymal lung opacity indicating atelectasis. 2. Decrease in size of right hilar and mediastinal mass/enlarged lymph nodes. Prashant Valdez MD Chest X-Ray 11/12/16 0908 Signed Impressions: Service Date/Time: Saturday, November 12, 2016 09:30 - CONCLUSION: Left greater than right pleural effusions. Bilateral patchy parenchymal opacity in the right lung apex and left perihilar region. Prashant Valdez MD Chest CT 11/12/16 0000 Signed Impressions: Service Date/Time: Saturday, November 12, 2016 11:23 - CONCLUSION: 1. Bilateral pleural effusions left greater than right. Bilateral dependent parenchymal lung opacity indicating atelectasis. 2. Decrease in size of right hilar and mediastinal mass/enlarged lymph nodes. Prashant Valdez MD Physical Exam GENERAL: NAD. Awake and alert SKIN: Dry skin, warm. No generalized rash. A lot of purpura and skin tears HEENT: Pale conjunctiva, no petechia or hemorrhage. No scleral icterus. Dry oral mucosa. NECK: Trachea midline. Supple, nontender, no meningeal signs. CARDIOVASCULAR: Heart sounds audible. No murmur appreciated. RESPIRATORY: Breath sounds decreased at both bases. GASTROINTESTINAL: Abdomen soft, non-tender, nondistended. BS (+) MUSCULOSKELETAL: Mild pedal edema. No joint effusions. NEUROLOGICAL: Alert and oriented. Psych Calm and cooperative IV line sites with no evidence of infection. : Has condom cath Assessment & Plan Remarks Septic shock present on admission. Resolved MSSA bacteremia - fup BC negative - last (+) BC 11/13 MSSA in urine : ? translocation. Pneumonia with effusions. Proteus UTI, catheter related Prior h.o cdiff. - has diarrhea but C diff negative - has had jonnie tap, has 2 CT on L Acute anemia: Blood loss query GI versus other site. Acute respiratory failure. Mild abnormal LFTs: ? sepsis related Acute metabolic encephalopathy: Likely infection related. Immune compromised host. Non-small cell adenocarcinoma of the lung with obstruction and mediastinal mass. Leukocytosis, persistent - ?due to underlying malignancy - no new infection found - on adequate Rx for infection identified Recs: Continue Rocephin Monitor progress Follow CBC Monitor temps Explained plan to patient d/w Oncology PA : high WBC could be from ? tumor burden as it is persistently high. Reviewed CXR persistent RLL infiltrate vs atelectasis will review with Pulmonology. Melba Michel MD Nov 28, 2016 14:53
--- NOTE | 2016-11-28 19:21 | HHI.PR ---
Subjective Remarks Improving . Chest tube is out. CXR stable. WBC still high Objective Vital Signs Date Time Temp Pulse Resp B/P Pulse Ox O2 Delivery O2 Flow Rate FiO2 11/28/16 16:00 97.2 89 16 120/77 94 11/28/16 12:00 97.6 88 16 110/80 95 11/28/16 10:44 86 11/28/16 09:27 96 21 11/28/16 08:00 97.6 91 16 127/77 93 11/28/16 04:00 97.6 97 17 112/73 94 11/27/16 20:21 105 11/27/16 20:07 92 11/27/16 20:00 97.4 102 18 129/74 97 I/O 11/27/16 11/27/16 11/27/16 11/28/16 11/28/16 11/28/16 07:00 15:00 23:00 07:00 15:00 23:00 Intake Total 240 ml 240 ml 1700 ml 800 ml 120 ml 832 ml Output Total 300 ml 500 ml 300 ml 350 ml 200 ml Balance 240 ml -60 ml 1200 ml 500 ml -230 ml 632 ml Intake Oral 240 ml 240 ml 120 ml IV Total 1700 ml 800 ml 832 ml Output Urine Total 300 ml 500 ml 300 ml 350 ml 200 ml # Voids 0 1 # Bowel Movements 0 3 1 1 2 Result Diagram: 11/28/16 1135 11/27/16 0606 Procedures Thoracentesis, Pigtail, Chest tube placement. Objective Remarks GENERAL: This is a thinly built elderly man who is pale and and appears chronically ill. HEENT: Head normocephalic. Pupils are reactive. Tongue moist. Throat is clear. Nasal mucosa is clear. NECK: Supple. No bruits or thyroid enlargement. CHEST: Decreased breath sounds at the bases, mostly the right base with occ crackles at the lung bases. HEART: The heart sounds are irregular, S1 and S2, no murmur, no S3. ABDOMEN: Soft, nontender. No organomegaly. Bowel sounds are active. EXTREMITIES: Decreased peripheral pulses. Edema ++ of arms. NEUROLOGIC: Reflexes are 1+. The patient does have weakness of the lower extremities with some muscle wasting. SKIN: Dry. MENTAL STATUS: The patient is alert and cooperative. Assessment and Plan Assessment and Plan IMPRESSION 1. Chronic right basilar atelectasis with pleural effusion. 2. Adenocarcinoma of the right lung with metastatic disease. 3. Status post chemotherapy and radiation therapy. 4. History of C. diff colitis. 5. History of coronary artery disease. 6. Hypertension. Plan : 1. O2 at 2 L.PRN and at HS 2. IS q4h at bedside. 3. PT evaluation. 4. Cont Antibiotics Per ID. 5. prednisone 10 mg daily. 6. Duoneb nebs tid. 7. CBC,BMP in am Rubia Lora MD Nov 28, 2016 19:21
[2016-11-28] MEDS: TEMAZEPAM 7.5 MG CAP PO PRN (21:41)
[2016-11-28] MEDS: ACETAMINOPHEN 325 MG TAB PO PRN (21:41)
[2016-11-29] VITALS (9 sets, daily range): BP systolic 106–126; BP diastolic 66–77; PULSE 82–116; RESP 16–18; TEMP 96.8–98.1; O2SAT 92–98
[2016-11-29] MEDS: ENOXAPARIN SODIUM 60 MG/0.6 ML SYRINGE SQ SCH ×2 (04:09→15:52)
[2016-11-29] MEDS: NS + KCL 20 MEQ INJ 1,000 ML IV SCH (04:10)
[2016-11-29] MEDS: INSULIN NovoLIN REGULAR SUPPLEMENTAL SCALE SQ SCH (04:10)
[2016-11-29] MEDS: cefTRIAXone INJ 2,000 MG in SODIUM CHLORIDE 0.9% INJ 100 ML IV SCH (05:52)
[2016-11-29 07:31] LABS: BICARBONATE 19.9 MEQ/L (21.0-32.0); MAGNESIUM 1.2 MG/DL (1.5-2.5); POTASSIUM 3.8 MEQ/L (3.5-5.1)
[2016-11-29 07:43] LABS: CALCIUM-PROTEIN CORRECTED 7.8 MG/DL (8.5-10.1)
[2016-11-29] MEDS: RESP: ALBUTEROL 2.5 MG/IPRATROPIUM 0.5 MG NEB (SCH) NEB ×2 (07:44→12:58)
[2016-11-29] MEDS: METOPROLOL TARTRATE 25 MG TAB PO SCH ×2 (08:26→21:00)
[2016-11-29] MEDS: PANTOPRAZOLE SODIUM 40 MG VIAL IV SCH (08:26)
[2016-11-29] MEDS: ACETAMINOPHEN 325 MG TAB PO PRN (08:26)
[2016-11-29] MEDS: ENALAPRIL MALEATE 5 MG TAB PO SCH (08:26)
[2016-11-29] MEDS: MAGNESIUM SULFATE 1 GM PREMIX 100 ML IV SCH ×2 (08:26→09:47)
[2016-11-29] MEDS: predniSONE 10 MG TAB PO SCH (08:27)
[2016-11-29] MEDS: AMIODARONE 200 MG TAB PO SCH (08:27)
[2016-11-29] MEDS: MAGNESIUM OXIDE 400 MG TAB PO SCH ×2 (08:27→21:04)
[2016-11-29] MEDS: ASPIRIN EC 81 MG TABEC PO SCH (08:27)
[2016-11-29] MEDS: CLOPIDOGREL 75 MG TAB PO SCH (08:27)
[2016-11-29] MEDS: SODIUM CHLORIDE 0.9% FLUSH 5 ML FLUSH IV FLUSH SCH ×2 (08:36→20:47)
[2016-11-29] MEDS: TIOTROPIUM BROMIDE 18 MCG INH INH SCH (09:00)
--- NOTE | 2016-11-29 09:55 | PD.ONC.PN ---
Subjective Subjective Remarks Afebrile overnight. Pt resting in bed asleep in no distress. Awakens easily to verbal stimuli. He is asking about going back to [facility]. Objective Data Date Time Temp Pulse Resp B/P Pulse Ox O2 Delivery O2 Flow Rate FiO2 11/29/16 08:00 97.1 82 16 125/77 94 11/29/16 07:45 92 21 11/29/16 04:00 98.1 88 17 124/75 95 11/28/16 21:14 103 11/28/16 20:00 98.3 101 18 99/63 93 11/28/16 19:46 93 11/28/16 16:00 97.2 89 16 120/77 94 11/28/16 12:00 97.6 88 16 110/80 95 11/28/16 10:44 86 11/29/16 11/29/16 11/29/16 07:00 15:00 23:00 Intake Total 1000 ml Output Total 450 ml Balance 550 ml Result Diagram: 11/28/16 1135 11/29/16 0640 Laboratory Results Laboratory Tests Test 11/28/16 11/29/16 11:35 06:40 White Blood Count 34.0 TH/MM3 Red Blood Count 2.74 MIL/MM3 Hemoglobin 7.8 GM/DL Hematocrit 24.6 % Mean Corpuscular Volume 89.7 FL Mean Corpuscular Hemoglobin 28.6 PG Mean Corpuscular Hemoglobin 31.9 % Concent Red Cell Distribution Width 19.0 % Platelet Count 202 TH/MM3 Mean Platelet Volume 7.0 FL Sodium Level 139 MEQ/L Potassium Level 3.8 MEQ/L Chloride Level 109 MEQ/L Carbon Dioxide Level 19.9 MEQ/L Anion Gap 10 MEQ/L Blood Urea Nitrogen 7 MG/DL Creatinine 0.30 MG/DL Estimat Glomerular Filtration 299 ML/MIN Rate Random Glucose 57 MG/DL Calcium Level 6.4 MG/DL Protein Corrected Calcium 7.8 MG/DL Phosphorus Level 1.8 MG/DL Magnesium Level 1.2 MG/DL Total Protein 4.3 GM/DL Administered Medications Medications (Trade) Dose Ordered Sig/Elvia Route PRN Reason Start Time Stop Time Status Last Admin Dose Admin IV Flush (NS Flush) 2 ml UNSCH PRN IV FLUSH FLUSH AFTER USING IV ACCESS 11/12/16 11:00 11/19/16 09:00 IV Flush (NS Flush) 2 ml BID IV FLUSH 11/12/16 21:00 11/28/16 08:26 Acetaminophen (Tylenol) 650 mg Q6H PRN PO PAIN 1-10 AND/OR FEVER >101F 11/12/16 12:00 11/29/16 08:26 Pantoprazole Sodium (Protonix Inj) 40 mg DAILY IV 11/13/16 09:00 11/29/16 08:26 Tiotropium [place] (Spiriva Inh) 18 mcg DAILY INH 11/13/16 09:00 11/26/16 08:36 Clopidogrel Bisulfate 75 mg 75 mg DAILY PO 11/13/16 09:00 11/29/16 08:27 Norepinephrine Bitartrate (Levophed-Dextrose Drip) 250 ml @ 0 mls/hr TITRATE IV 11/12/16 13:30 11/12/16 18:48 Miscellaneous Information Patient in critical care unit? Ass... [id number] 11/12/16 18:30 11/12/16 18:30 Insulin Human Regular 1 1 Q6H SQ 11/13/16 10:15 11/21/16 22:12 Phenylephrine HCl/ Dextrose (Neosynephrine Inj/D5W 500 ml Inj) 500 ml @ 0 mls/hr TITRATE IV 11/14/16 17:15 11/15/16 12:54 Temazepam (Restoril) 7.5 mg HS PRN PO SLEEP 11/15/16 22:45 11/28/16 21:41 Aspirin 81 mg 81 mg DAILY PO 11/16/16 09:00 11/29/16 08:27 Vasopressin/ Dextrose (Pitressin Inj/ D5W 100 ml Inj) 100 ml @ 0 mls/hr Q0M IV 11/18/16 14:45 11/18/16 14:59 Enoxaparin Sodium (Lovenox Inj) 60 mg Q12H SQ 11/20/16 16:00 11/29/16 04:09 Metoprolol Tartrate 25 mg 25 mg Q12HR PO 11/22/16 21:00 11/29/16 08:26 Potassium Chloride/Sodium Chloride (NS + KCl 20 Meq Inj) 1,000 ml @ 100 mls/hr Q10H IV 11/23/16 08:00 11/29/16 04:10 Amiodarone HCl (Cordarone) 200 mg DAILY PO 11/23/16 09:00 11/29/16 08:27 Enalapril Maleate (Vasotec) 5 mg DAILY PO 11/26/16 09:00 11/29/16 08:26 Magnesium Oxide 400 mg 400 mg Q12HR PO 11/26/16 21:00 11/29/16 08:27 Ceftriaxone Sodium/Sodium Chloride (Rocephin Inj/NS Inj) 100 ml @ 200 mls/hr Q24H IV 11/27/16 07:00 11/29/16 05:52 Prednisone 10 mg 10 mg DAILY PO 11/28/16 09:00 11/29/16 08:27 Magnesium Sulfate/ Dextrose (Magnesium Sulfate 1 Gm Premix) 100 ml @ 100 mls/hr Q1H IV 11/29/16 08:00 11/29/16 09:59 11/29/16 08:26 Objective Remarks GENERAL: Weak male, lying supine in bed in no distress. SKIN: Warm and dry. Multiple ecchymoses to BUE. HEAD: Normocephalic. EYES: No scleral icterus. No injection or drainage. NECK: Supple, trachea midline. CARDIOVASCULAR: +S1/S2 RESPIRATORY: Breath sounds equal bilaterally. No accessory muscle use. GASTROINTESTINAL: Abdomen soft, non-tender, nondistended. EXTREMITIES: No cyanosis. NEUROLOGICAL: Awake, normal speech oriented x 3 Assessment/Plan Problem List: (1) Septic shock Status: Acute Plan: --on IV abx--Rocephin per ID --most recent BC with no growth --last positive BC was 11/13 --CT chest showed bilateral pleural effusions, left greater than right. 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 --was some improvement of his tumor bulk with concurrent chemotherapy and radiation. (3) Normocytic anemia Status: Acute Plan: -- recommend keeping his hemoglobin greater than 8. (4) Afib Status: Chronic Plan: --on Lovenox 60mg SQ BID --cardiology following. --on Amiodarone + Lopressor Assessment 65y/o with NSCLC admitted with sepsis. h/o tobacco abuse. COPD. Hypertension. Hyperlipidemia. 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 Pulmonary embolism. Peripheral vascular disease status post revascularization of the lower extremities. History of coronary artery disease/IA, status post cardiac catheterization with PCI and drug eluding stent. Plan 1. Replace Mag, Phos today. 2. Hgb was 7.8 yesterday. Will recheck today. If decreasing will transfuse 1 unit PRBC's. 3. From an oncology standpoint, he will not be receiving further chemotherapy at this point due to his performance status. 4. If his blood counts are stable, he can be discharged back to [facility]. Attending Statement The exam, history, and the medical decision-making described in the above note were completed with the assistance of the mid-level provider. I reviewed and agree with the findings presented. I attest that I had a [id number] encounter with the patient on the same day, and personally performed and documented my assessment and findings in the medical record. remains weak and deconditioned. difficult road to any meaningful recovery of performance status continue PT Anemia: transfuse 1 unit of pRBC Hypomagnesemia/Hypophosphatemia: replace mag and phos breathing better. chest x-ray stable small pleural effusion. Should be ready to go to rehab over the next 24-48 hours d/w Kimi Barnhart Nov 29, 2016 09:54 Rj Monteiro MD Nov 29, 2016 23:47
[2016-11-29] MEDS ORDERED: POTASSIUM PHOSPHATE INJ 30 MMOL in SODIUM CHLOR 0.9% 250 ML INJ 250 ML IV ONE (10:00)
[2016-11-29 11:49] LABS: HEMATOCRIT 24.3 % (39.0-51.0); MEAN CELL VOLUME 88.1 FL (80.0-100.0); MEAN CORPUSCULAR HEMOGLOBIN 28.8 PG (27.0-34.0); MEAN CORPUSCULAR HGB CONC 32.6 % (32.0-36.0); PLATELET COUNT 158 TH/MM3 (150-450); RED BLOOD COUNT 2.76 MIL/MM3 (4.50-5.90); RED CELL DISTRIBUTION WIDTH 18.8 % (11.6-17.2); WHITE BLOOD COUNT 37.2 TH/MM3 (4.0-11.0)
[2016-11-29 11:56] LABS: HEMO FLAGS AUTO DIFF
[2016-11-29 12:34] LABS: BANDS 6 % (0-6); NEUTROPHIL # MANUAL DIFF 35.7 TH/MM3 (1.8-7.7); POLYS (SEG NEUTROPHILS) 90 % (16-70); WBC DIFF SAMPLE 100
[2016-11-29 12:35] LABS: TOXIC GRANULATION 1+ (NORMAL)
[2016-11-29 12:36] LABS: HYPERSEGMENTED POLYS 1+ (NORMAL); PLATELET ESTIMATE SMEAR NORMAL (NORMAL); PLATELET MORPHOLOGY NORMAL (NORMAL); SCAN/DIFF FINAL DIFF MANUAL
[2016-11-29] MEDS ORDERED: SODIUM CHLOR 0.9% 250 ML INJ 250 ML IV ONE (16:45)
--- NOTE | 2016-11-29 17:03 | HHI.PR ---
Subjective Remarks No new complaints . CXR stable. WBC still high .Off O2 sat 94. Remains weak. Objective Vital Signs Date Time Temp Pulse Resp B/P Pulse Ox O2 Delivery O2 Flow Rate FiO2 11/29/16 15:40 97.2 90 17 115/75 97 11/29/16 11:50 96.8 83 16 126/71 95 11/29/16 08:00 97.1 82 16 125/77 94 11/29/16 07:45 92 21 11/29/16 04:00 98.1 88 17 124/75 95 11/28/16 21:14 103 11/28/16 20:00 98.3 101 18 99/63 93 11/28/16 19:46 93 I/O 11/28/16 11/28/16 11/28/16 11/29/16 11/29/16 11/29/16 07:00 15:00 23:00 07:00 15:00 23:00 Intake Total 800 ml 120 ml 1332 ml 1000 ml 120 ml Output Total 300 ml 350 ml 350 ml 450 ml 550 ml Balance 500 ml -230 ml 982 ml 550 ml -430 ml Intake Oral 120 ml 200 ml 120 ml IV Total 800 ml 1332 ml 800 ml Output Urine Total 300 ml 350 ml 350 ml 450 ml 550 ml # Voids 1 # Bowel Movements 1 2 3 3 Result Diagram: 11/29/16 1103 11/29/16 0640 Procedures Thoracentesis, Pigtail, Chest tube placement. Objective Remarks GENERAL: This is a thinly built elderly man who is pale and and appears chronically ill. HEENT: Head normocephalic. Pupils are reactive. Tongue moist. Throat is clear. Nasal mucosa is clear. NECK: Supple. No bruits or thyroid enlargement. CHEST: Decreased breath sounds at the bases, mostly the right base with occ crackles at the lung bases. HEART: The heart sounds are irregular, S1 and S2, no murmur, no S3. ABDOMEN: Soft, nontender. No organomegaly. Bowel sounds are active. EXTREMITIES: Decreased peripheral pulses. Edema ++ of arms. NEUROLOGIC: Reflexes are 1+. The patient does have weakness of the lower extremities with some muscle wasting. SKIN: Dry. MENTAL STATUS: The patient is alert and cooperative. Assessment and Plan Assessment and Plan IMPRESSION 1. Chronic right basilar atelectasis with pleural effusion. 2. Adenocarcinoma of the right lung with metastatic disease. 3. Status post chemotherapy and radiation therapy. 4. History of C. diff colitis. 5. History of coronary artery disease. 6. Hypertension. Plan : 1. O2 at 2 L.PRN and at HS 2. IS q4h at bedside. 3. PT evaluation. 4. Cont Antibiotics Per ID. 5. prednisone 5 mg daily. 6. Duoneb nebs tid. 7. Refer back to Ajay rahman when OK with ID Rubia Lora MD Nov 29, 2016 17:03
--- NOTE | 2016-11-29 17:51 | HHI.PR ---
Subjective Remarks This is a 64-year-old male with history of COPD, hypertension, coronary artery disease, STEMI on 07/08/16 s/p PCI and DELMY (Dr. Crouch), history of C. difficile colitis, non-small cell lung cancer receiving chemoradiation per Dr. Monteiro, history of pulmonary embolism on Lovenox who was admitted to hospital recently from 07/08-08/31/16 with above diagnoses. noted Mediastinal and Lung mass, as Non Small Cell Lung Cancer(Adenocarcinoma), status post Bronchoscopy. Brought from long term with fever, Hypotension, Encephalopathy, Septic, UTI, HCAP, ID specialist following, was in Intensive Care Unit received Zosyn in ER and given Cefepime and Flagyl by client resource specialist and Vancomycin. Certified Diabetes Educator Notes. 11/13 Patient is on 35% VM, afebrile. Off Levophed 11/14 Patient was started on Cardizem drip 15mg/hr overnight in addition was given Lopressor 2.5mg IV x1 for tachycardia. Afebrile. On Heparin drip. s/p transfusion 1u PRBC for Hgb 6.9 now 8.1. 11/15 Patient is on Neosyn 40 mics, off vasopressin. He was given Amiodarone bolus overnight for Afib with RVR HR remains 120-130's. Afebrile. 11/16: Remains on Cardizem and amiodarone. Off vasopressors. Patient's CXR appears worse. He does not appear in distress. Palliative care consulted and family and patient will decide on hospice after d/w Dr. Monteiro 11/17: Bedside ultrasound shows fairly large left pleural effusion despite chest tube. Possibly loculated. We'll hold off thoracentesis to additional chest tube and the patient makes decisions about comfort measures versus aggressive care. Patient waiting to talk to Dr. Monteiro to decide on hospice 11/18: Patient declined hospice and wants to continue aggressive care at this time. White count has increased to 48.9 with 97% neutrophils, I have requested ID reevaluation. Large right pleural effusion drained today 1.2 L clear fluid. UO 4L in 24 hours 11/19/16: Patient had right thoracentesis yesterday 11/18 with 1.2 L pleural fluid removed. A new left pigtail chest tube was placed also yesterday 11/18 with 580 mL of slightly blood-tinged pleural fluid removal over 24 hours. Patient now on nasal cannula tolerating well. Left 32 [place] chest tube was removed today 11/20: Breathing more comfortably now. Large bore chest tube removed yesterday. No pneumothorax. WBC count slightly improved from 45.5 to 42.5 11/21 No acute events overnight. Patient is lying in bed in NAD. Afebrile. WBC 43 11/22 Patient is on 2L oxygen with good sats. Afebrile. WBC 39 today from 43. Awake and alert. 11/23 No acute events overnight. WBC trending down 36 today. Afebrile. 11/24 patient transferred to Hospitalist team for today. as per Infectious Disease specialist MSSA Bacteremia, MSSA in Urine, Pneumonia with Effusions, Proteus UTI, Prior history of Diarrhea, Discontinued Vancomycin, Discontinued Micafungin continued Cefepime and Flagyl by mouth, check C Diff PCR. 11/25 Patient stable in his bedroom, discussed with nurse Chio Moreno replacing Phosphorus level. 11/26 Patient stable in his bedroom no nausea, vomit or diarrhea, discussed with patient and his . and nurse 11/27 Seen in the room in the presence of his , unable to continue further management for his Cancer due to multiple comorbidities, visual specialist recommends to keep Hemoglobin over 8 , continue Lovenox, CAD Cardiology following, to continue supportive care, as per ID specialist MSSA Bacteremia, BC negative, Pneumonia with effusions Proteus UTI catheter related, Prior C Diff, Persistent Leukocytosis, recommended to continue Rocephin 11/28 Seen in his bedroom in the presence of nurse Hailey, continue present care, no complaint of Nausea, vomit or diarrhea multiple generalized Ecchymosis. 11/29 Patient seen in his bedroom Continue Rocephin as per ID specialist, No further treatment for his Lung cancer as per ux specialist will be able to discharge during the next 24 to 48 hours. Objective Vital Signs Date Time Temp Pulse Resp B/P Pulse Ox O2 Delivery O2 Flow Rate FiO2 11/29/16 15:40 97.2 90 17 115/75 97 11/29/16 11:50 96.8 83 16 126/71 95 11/29/16 08:05 116 11/29/16 08:00 97.1 82 16 125/77 94 11/29/16 07:45 92 21 11/29/16 04:00 98.1 88 17 124/75 95 11/28/16 21:14 103 11/28/16 20:00 98.3 101 18 99/63 93 11/28/16 19:46 93 I/O 11/28/16 11/28/16 11/28/16 11/29/16 11/29/16 11/29/16 07:00 15:00 23:00 07:00 15:00 23:00 Intake Total 800 ml 120 ml 1332 ml 1000 ml 120 ml Output Total 300 ml 350 ml 350 ml 450 ml 550 ml Balance 500 ml -230 ml 982 ml 550 ml -430 ml Intake Oral 120 ml 200 ml 120 ml IV Total 800 ml 1332 ml 800 ml Output Urine Total 300 ml 350 ml 350 ml 450 ml 550 ml # Voids 1 # Bowel Movements 1 2 3 3 Result Diagram: 11/29/16 1103 11/29/16 0640 Imaging Last Impressions Chest X-Ray 11/28/16 0000 Signed Impressions: Service Date/Time: Monday, November 28, 2016 11:38 - CONCLUSION: Stable small right pleural effusion with associative volume loss and/or consolidation. Trace left pleural effusion with airspace consolidation in the left lower lung zone. yS Whitehead MD Chest CT 11/12/16 0000 Signed Impressions: Service Date/Time: Saturday, November 12, 2016 11:23 - CONCLUSION: 1. Bilateral pleural effusions left greater than right. Bilateral dependent parenchymal lung opacity indicating atelectasis. 2. Decrease in size of right hilar and mediastinal mass/enlarged lymph nodes. Prashant Valdez MD Procedures Thoracentesis, Pigtail, Chest tube placement. Other Results Laboratory Tests Test 11/29/16 11/29/16 06:40 11:03 Sodium Level 139 MEQ/L Potassium Level 3.8 MEQ/L Chloride Level 109 MEQ/L Carbon Dioxide Level 19.9 MEQ/L Anion Gap 10 MEQ/L Blood Urea Nitrogen 7 MG/DL Creatinine 0.30 MG/DL Estimat Glomerular Filtration 299 ML/MIN Rate Random Glucose 57 MG/DL Calcium Level 6.4 MG/DL Protein Corrected Calcium 7.8 MG/DL Phosphorus Level 1.8 MG/DL Magnesium Level 1.2 MG/DL Total Protein 4.3 GM/DL White Blood Count 37.2 TH/MM3 Red Blood Count 2.76 MIL/MM3 Hemoglobin 7.9 GM/DL Hematocrit 24.3 % Mean Corpuscular Volume 88.1 FL Mean Corpuscular Hemoglobin 28.8 PG Mean Corpuscular Hemoglobin 32.6 % Concent Red Cell Distribution Width 18.8 % Platelet Count 158 TH/MM3 Mean Platelet Volume 7.6 FL Neutrophils (%) (Auto) % Lymphocytes (%) (Auto) % Monocytes (%) (Auto) % Eosinophils (%) (Auto) % Basophils (%) (Auto) % Neutrophils # (Auto) TH/MM3 Lymphocytes # (Auto) TH/MM3 Monocytes # (Auto) TH/MM3 Eosinophils # (Auto) TH/MM3 Basophils # (Auto) TH/MM3 CBC Comment AUTO DIFF Differential Total Cells 100 Counted Neutrophils % (Manual) 90 % Band Neutrophils % 6 % Monocytes % 4 % Neutrophils # (Manual) 35.7 TH/MM3 Differential Comment FINAL DIFF MANUAL Hypersegmented Polys 1+ Toxic Granulation 1+ Platelet Estimate NORMAL Platelet Morphology Comment NORMAL Hematology Comments Objective Remarks GENERAL: Patient is lying in be din NAD SKIN: Warm and dry. HEAD: Normocephalic. EYES: No scleral icterus. No injection or drainage. NECK: Supple, trachea midline. No JVD or lymphadenopathy. CARDIOVASCULAR: Regular rate and rhythm without murmurs, gallops, or rubs. RESPIRATORY: Breath sounds equal bilaterally. No accessory muscle use. GASTROINTESTINAL: Abdomen soft, non-tender, nondistended. MUSCULOSKELETAL: No cyanosis, or edema. BACK: Nontender without obvious deformity. No CVA tenderness. Neuro: Awake and alert Medications and IVs Current Medications Medications (Trade) Dose Ordered Sig/Elvia Route Start Time Stop Time Status Last Admin (NS Flush) 2 ml UNSCH PRN IV FLUSH 11/12/16 11:00 11/19/16 09:00 (NS Flush) 2 ml BID IV FLUSH 11/12/16 21:00 11/28/16 08:26 (Tylenol) 650 mg Q6H PRN PO 11/12/16 12:00 11/29/16 08:26 (Protonix Inj) 40 mg DAILY IV 11/13/16 09:00 11/29/16 08:26 (Spiriva Inh) 18 mcg DAILY INH 11/13/16 09:00 11/26/16 08:36 Clopidogrel Bisulfate 75 mg 75 mg DAILY PO 11/13/16 09:00 11/29/16 08:27 (Levophed-Dextrose Drip) 250 ml @ 0 mls/hr TITRATE IV 11/12/16 13:30 11/12/16 18:48 Miscellaneous Information Patient in critical care unit? Ass... Q361D XX 11/12/16 18:30 11/12/16 18:30 (D50w (Vial) Inj) 25 ml UNSCH PRN IV PUSH 11/13/16 10:15 Glucagon 1 mg 1 mg UNSCH PRN OTHER 11/13/16 10:15 (Neosynephrine Inj/D5W 500 ml Inj) 500 ml @ 0 mls/hr TITRATE IV 11/14/16 17:15 11/15/16 12:54 (Brethine Inj) 1 mg UNSCH PRN SQ 11/14/16 16:15 (Restoril) 7.5 mg HS PRN PO 11/15/16 22:45 11/28/16 21:41 Aspirin 81 mg 81 mg DAILY PO 11/16/16 09:00 11/29/16 08:27 (Pitressin Inj/ D5W 100 ml Inj) 100 ml @ 0 mls/hr Q0M IV 11/18/16 14:45 11/18/16 14:59 (Lovenox Inj) 60 mg Q12H SQ 11/20/16 16:00 11/29/16 15:52 (Pill Splitter) 1 ea UNSCH PRN OTHER 11/21/16 11:00 Metoprolol Tartrate 25 mg 25 mg Q12HR PO 11/22/16 21:00 11/29/16 08:26 (NS + KCl 20 Meq Inj) 1,000 ml @ 100 mls/hr Q10H IV 11/23/16 08:00 11/29/16 04:10 (Cordarone) 200 mg DAILY PO 11/23/16 09:00 11/29/16 08:27 (Vasotec) 5 mg DAILY PO 11/26/16 09:00 11/29/16 08:26 Magnesium Oxide 400 mg 400 mg Q12HR PO 11/26/16 21:00 11/29/16 08:27 Ceftriaxone Sodium 2000 mg/ Sodium Chloride 100 ml @ 200 mls/hr Q24H IV 11/27/16 07:00 11/29/16 05:52 (NS 250 ml Inj) 250 ml @ 15 mls/hr ONCE ONCE IV 11/29/16 16:45 11/30/16 09:24 (Deltasone) 5 mg DAILY PO 11/30/16 09:00 A/P Assessment and Plan 1. Acute Metabolic Encephalopathy Resolved. 2. Respiratory Insufficiency/Bilateral Pleural Effusion/Possible HCAP/COPD/ Adenocarcinoma of the lung/History of PE continue to keep oxygen saturation over 92%, Bronchodilator, Mucolytic, incentive spirometry, Steroids. Status post Chest tube placement 11/12 Exudate effusion per LDH criteria, removed 11/19/16 Cytology negative for malignancy, Status post right thoracentesis with 1.2 L fluid removed, Transudate status post Pigtail catheter drainage of Lower pleural effusion, 11/18/16. Removed Chest tube. 3. Acute on chronic systolic heart failure, Ischemic cardiomyopathy, Atrial Fibrillation with RVR. 4. Hypotension/CAD/status post STEMI 07/08/16 with PCI/DELMY to D1, on Amiodarone 400 mg daily and Metoprolol 12.5 mg BID. EF 30-35% Continue Plavix. 5. Diarrhea/History of C Diff Colitis. On Protonix as per Manager Entry. Improving diarrhea. 6. Staph aureus Bacteremia/Severe Sepsis with worsening Leukocytosis, UTI/ Possible HCAP, History of C Diff Colitis ID following, he was on Vancomycin, Cefepime, Micafungin, Flagyl by mouth at this time, continue on Ceftriaxone with Diagnosis of MSSA Bacteremia, BC negative, Pneumonia with effusions, Proteus UTI Catheter related. Urine Proteus Mirabilis Staph species. Prior C diff. and persistent Leukocytosis. 7. Non Small cell lung cancer of Right mainstem bronchus diagnosed with bulky mediastinal disease plus compression of his bronchus, improvement after chemotherapy and radiation therapy, on Lovenox 60 mg BID for atrial fibrillation 8. History of Stroke x 2 with left sided residual weakness. 9. Pulmonary Emboli 10. PAD status post revascularization of the lower extremities. 11. CAD status post [place], status post Cardiac Catheterization with PCI and drug eluting stent. History of coronary artery disease/[place], status post cardiac catheterization with PCI and drug eluding stent. 12. Electrolyte derangement Hypophosphatemia and Hypomagnesemia replaced and following. Bilateral lower extremity SCDs. On Lovenox 60 mg subcutaneous every 12, IV Protonix Following recommendations by PT/OT. Discussed with patient and nurse in the room. Discharge Planning Not yet cleared by ux specialist for discharge. Chaka Larson MD Nov 29, 2016 17:51
[2016-11-30] VITALS (9 sets, daily range): BP systolic 99–117; BP diastolic 60–75; PULSE 82–104; RESP 17–20; TEMP 96.1–97.7; O2SAT 94–97
[2016-11-30] MEDS: TEMAZEPAM 7.5 MG CAP PO PRN ×2 (00:30→21:49)
[2016-11-30] MEDS: ACETAMINOPHEN 325 MG TAB PO PRN (00:30)
[2016-11-30] MEDS: NS + KCL 20 MEQ INJ 1,000 ML IV SCH ×3 (00:35→21:57)
[2016-11-30] MEDS: MORPHINE SULFATE 4 MG/ML INJ IV PUSH PRN ×2 (00:58→05:59)
[2016-11-30] MEDS: cefTRIAXone INJ 2,000 MG in SODIUM CHLORIDE 0.9% INJ 100 ML IV SCH (05:59)
[2016-11-30] MEDS: ENOXAPARIN SODIUM 60 MG/0.6 ML SYRINGE SQ SCH ×2 (06:01→16:03)
[2016-11-30 08:05] LABS: BASOPHIL % 0.1 % (0.0-2.0); HEMATOCRIT 26.3 % (39.0-51.0); LYMPH % 0.7 % (9.0-44.0); LYMPHOCYTE # 0.3 TH/MM3 (1.0-4.8); MEAN CELL VOLUME 90.2 FL (80.0-100.0); MEAN CORPUSCULAR HEMOGLOBIN 29.2 PG (27.0-34.0); MEAN CORPUSCULAR HGB CONC 32.4 % (32.0-36.0); MONO % 4.5 % (0.0-8.0); NEUT % 94.7 % (16.0-70.0); PLATELET COUNT 172 TH/MM3 (150-450); RED BLOOD COUNT 2.92 MIL/MM3 (4.50-5.90); RED CELL DISTRIBUTION WIDTH 17.5 % (11.6-17.2)
[2016-11-30 08:08] LABS: HEMO FLAGS AUTO DIFF
[2016-11-30 08:27] LABS: BICARBONATE 19.3 MEQ/L (21.0-32.0); MAGNESIUM 1.5 MG/DL (1.5-2.5); POTASSIUM 3.8 MEQ/L (3.5-5.1)
[2016-11-30 08:59] LABS: CALCIUM-PROTEIN CORRECTED 8.2 MG/DL (8.5-10.1)
[2016-11-30] MEDS: ENALAPRIL MALEATE 5 MG TAB PO SCH (09:00)
[2016-11-30] MEDS: METOPROLOL TARTRATE 25 MG TAB PO SCH ×2 (09:00→21:00)
[2016-11-30 09:18] LABS: BANDS 9 % (0-6); BURR CELLS 1+ (NORMAL); NEUTROPHIL # MANUAL DIFF 36.3 TH/MM3 (1.8-7.7); OVALOCYTES 1+ (NORMAL); PLATELET ESTIMATE SMEAR NORMAL (NORMAL); PLATELET MORPHOLOGY NORMAL (NORMAL); POLYS (SEG NEUTROPHILS) 89 % (16-70); SCAN/DIFF FINAL DIFF MANUAL; WBC DIFF SAMPLE 100
[2016-11-30 09:19] LABS: TOXIC GRANULATION 1+ (NORMAL)
[2016-11-30] MEDS: ASPIRIN EC 81 MG TABEC PO SCH (10:08)
[2016-11-30] MEDS: predniSONE 5 MG TAB PO SCH (10:08)
[2016-11-30] MEDS: CLOPIDOGREL 75 MG TAB PO SCH (10:09)
[2016-11-30] MEDS: AMIODARONE 200 MG TAB PO SCH (10:09)
[2016-11-30] MEDS: MAGNESIUM OXIDE 400 MG TAB PO SCH ×2 (10:09→21:44)
[2016-11-30] MEDS: TIOTROPIUM BROMIDE 18 MCG INH INH SCH (10:10)
[2016-11-30] MEDS: PANTOPRAZOLE SODIUM 40 MG VIAL IV SCH (10:10)
[2016-11-30] MEDS: SODIUM CHLORIDE 0.9% FLUSH 5 ML FLUSH IV FLUSH SCH ×2 (10:10→21:00)
--- NOTE | 2016-11-30 11:38 | HHI.PR ---
Subjective Remarks This is a 64-year-old male with history of COPD, hypertension, coronary artery disease, STEMI on 07/08/16 s/p PCI and DELMY (Dr. Crouch), history of C. difficile colitis, non-small cell lung cancer receiving chemoradiation per Dr. Monteiro, history of pulmonary embolism on Lovenox who was admitted to hospital recently from 07/08-08/31/16 with above diagnoses. noted Mediastinal and Lung mass, as Non Small Cell Lung Cancer(Adenocarcinoma), status post Bronchoscopy. Brought from [facility] with fever, Hypotension, Encephalopathy, Septic, UTI, HCAP, ID specialist following, was in Intensive Care Unit received Zosyn in ER and given Cefepime and Flagyl by dermatology specialist and Vancomycin. Cardiovascular Disease Specialist Notes. 11/13 Patient is on 35% VM, afebrile. Off Levophed 11/14 Patient was started on Cardizem drip 15mg/hr overnight in addition was given Lopressor 2.5mg IV x1 for tachycardia. Afebrile. On Heparin drip. s/p transfusion 1u PRBC for Hgb 6.9 now 8.1. 11/15 Patient is on Neosyn 40 mics, off vasopressin. He was given Amiodarone bolus overnight for Afib with RVR HR remains 120-130's. Afebrile. 11/16: Remains on Cardizem and amiodarone. Off vasopressors. Patient's CXR appears worse. He does not appear in distress. Palliative care consulted and family and patient will decide on hospice after d/w Dr. Monteiro 11/17: Bedside ultrasound shows fairly large left pleural effusion despite chest tube. Possibly loculated. We'll hold off thoracentesis to additional chest tube and the patient makes decisions about comfort measures versus aggressive care. Patient waiting to talk to Dr. Monteiro to decide on hospice 11/18: Patient declined hospice and wants to continue aggressive care at this time. White count has increased to 48.9 with 97% neutrophils, I have requested ID reevaluation. Large right pleural effusion drained today 1.2 L clear fluid. UO 4L in 24 hours 11/19/16: Patient had right thoracentesis yesterday 11/18 with 1.2 L pleural fluid removed. A new left pigtail chest tube was placed also yesterday 11/18 with 580 mL of slightly blood-tinged pleural fluid removal over 24 hours. Patient now on nasal cannula tolerating well. Left 32 [place] chest tube was removed today 11/20: Breathing more comfortably now. Large bore chest tube removed yesterday. No pneumothorax. WBC count slightly improved from 45.5 to 42.5 11/21 No acute events overnight. Patient is lying in bed in NAD. Afebrile. WBC 43 11/22 Patient is on 2L oxygen with good sats. Afebrile. WBC 39 today from 43. Awake and alert. 11/23 No acute events overnight. WBC trending down 36 today. Afebrile. 11/24 patient transferred to Hospitalist team for today. as per Infectious Disease specialist MSSA Bacteremia, MSSA in Urine, Pneumonia with Effusions, Proteus UTI, Prior history of Diarrhea, Discontinued Vancomycin, Discontinued Micafungin continued Cefepime and Flagyl by mouth, check C Diff PCR. 11/25 Patient stable in his bedroom, discussed with nurse Chio Moreno replacing Phosphorus level. 11/26 Patient stable in his bedroom no nausea, vomit or diarrhea, discussed with patient and his . and nurse 11/27 Seen in the room in the presence of his , unable to continue further management for his Cancer due to multiple comorbidities, medical program specialist recommends to keep Hemoglobin over 8 , continue Lovenox, CAD Cardiology following, to continue supportive care, as per ID specialist MSSA Bacteremia, BC negative, Pneumonia with effusions Proteus UTI catheter related, Prior C Diff, Persistent Leukocytosis, recommended to continue Rocephin 11/28 Seen in his bedroom in the presence of nurse Hailey, continue present care, no complaint of Nausea, vomit or diarrhea multiple generalized Ecchymosis. 11/29 Patient seen in his bedroom Continue Rocephin as per ID specialist, No further treatment for his Lung cancer as per customer experience specialist will be able to discharge during the next 24 to 48 hours. 11/30 No changes to anterior assessment. Objective Vital Signs Date Time Temp Pulse Resp B/P Pulse Ox O2 Delivery O2 Flow Rate FiO2 11/30/16 08:00 96.5 86 18 108/70 94 11/30/16 06:51 16 11/30/16 04:00 97.0 86 17 110/75 97 11/30/16 01:47 96.8 88 18 99/60 96 11/30/16 01:20 18 11/30/16 00:54 97.7 96 17 101/68 97 11/30/16 00:00 97.7 96 17 101/68 97 11/29/16 21:00 96 11/29/16 20:55 95 21 11/29/16 20:00 97.6 96 18 106/66 98 11/29/16 15:40 97.2 90 17 115/75 97 11/29/16 11:50 96.8 83 16 126/71 95 I/O 11/29/16 11/29/16 11/29/16 11/30/16 11/30/16 11/30/16 07:00 15:00 23:00 07:00 15:00 23:00 Intake Total 1000 ml 120 ml Output Total 450 ml 550 ml 400 ml 200 ml Balance 550 ml -430 ml -400 ml -200 ml Intake Oral 200 ml 120 ml IV Total 800 ml Output Urine Total 450 ml 550 ml 400 ml 200 ml # Bowel Movements 3 3 Result Diagram: 11/30/16 0638 11/30/16 0638 Imaging Last Impressions Chest X-Ray 11/28/16 0000 Signed Impressions: Service Date/Time: Monday, November 28, 2016 11:38 - CONCLUSION: Stable small right pleural effusion with associative volume loss and/or consolidation. Trace left pleural effusion with airspace consolidation in the left lower lung zone. Sy Whitehead MD Chest CT 11/12/16 0000 Signed Impressions: Service Date/Time: Saturday, November 12, 2016 11:23 - CONCLUSION: 1. Bilateral pleural effusions left greater than right. Bilateral dependent parenchymal lung opacity indicating atelectasis. 2. Decrease in size of right hilar and mediastinal mass/enlarged lymph nodes. Prashant Valdez MD Procedures Thoracentesis, Pigtail, Chest tube placement. Other Results Laboratory Tests Test 11/29/16 11/29/16 11/30/16 12/01/16 11:03 17:43 06:38 00:09 Hypersegmented Polys 1+ Hematology Comments Antibody Screen NEGATIVE White Blood Count 37.0 TH/MM3 Red Blood Count 2.92 MIL/MM3 Hemoglobin 8.5 GM/DL Hematocrit 26.3 % Mean Corpuscular Volume 90.2 FL Mean Corpuscular Hemoglobin 29.2 PG Mean Corpuscular Hemoglobin 32.4 % Concent Red Cell Distribution Width 17.5 % Platelet Count 172 TH/MM3 Mean Platelet Volume 7.0 FL Neutrophils (%) (Auto) 94.7 % Lymphocytes (%) (Auto) 0.7 % Monocytes (%) (Auto) 4.5 % Eosinophils (%) (Auto) 0.0 % Basophils (%) (Auto) 0.1 % Neutrophils # (Auto) 35.0 TH/MM3 Lymphocytes # (Auto) 0.3 TH/MM3 Monocytes # (Auto) 1.7 TH/MM3 Eosinophils # (Auto) 0.0 TH/MM3 Basophils # (Auto) 0.0 TH/MM3 CBC Comment AUTO DIFF Differential Total Cells 100 Counted Neutrophils % (Manual) 89 % Band Neutrophils % 9 % Lymphocytes % 1 % Monocytes % 1 % Neutrophils # (Manual) 36.3 TH/MM3 Differential Comment FINAL DIFF MANUAL Toxic Granulation 1+ Platelet Estimate NORMAL Platelet Morphology Comment NORMAL Ovalocytes 1+ [place] Cells 1+ Sodium Level 138 MEQ/L Potassium Level 3.8 MEQ/L Chloride Level 107 MEQ/L Carbon Dioxide Level 19.3 MEQ/L Anion Gap 12 MEQ/L Blood Urea Nitrogen 8 MG/DL Creatinine 0.22 MG/DL Estimat Glomerular Filtration 428 ML/MIN Rate Random Glucose 43 MG/DL Calcium Level 6.7 MG/DL Protein Corrected Calcium 8.2 MG/DL Phosphorus Level 2.0 MG/DL Magnesium Level 1.5 MG/DL Total Protein 4.2 GM/DL Blood Type B NEGATIVE Crossmatch Leukocyte-Reduced Red Blood Cells Blood Bank Comment Objective Remarks GENERAL: Patient is lying in be din NAD SKIN: Warm and dry. HEAD: Normocephalic. EYES: No scleral icterus. No injection or drainage. NECK: Supple, trachea midline. No JVD or lymphadenopathy. CARDIOVASCULAR: Regular rate and rhythm without murmurs, gallops, or rubs. RESPIRATORY: Breath sounds equal bilaterally. No accessory muscle use. GASTROINTESTINAL: Abdomen soft, non-tender, nondistended. MUSCULOSKELETAL: No cyanosis, or edema. BACK: Nontender without obvious deformity. No CVA tenderness. Neuro: Awake and alert Medications and IVs Current Medications Medications (Trade) Dose Ordered Sig/Elvia Route Start Time Stop Time Status Last Admin (NS Flush) 2 ml UNSCH PRN IV FLUSH 11/12/16 11:00 11/19/16 09:00 (NS Flush) 2 ml BID IV FLUSH 11/12/16 21:00 11/30/16 10:10 (Tylenol) 650 mg Q6H PRN PO 11/12/16 12:00 11/30/16 00:30 (Protonix Inj) 40 mg DAILY IV 11/13/16 09:00 12/01/16 08:02 (Spiriva Inh) 18 mcg DAILY INH 11/13/16 09:00 12/01/16 08:00 Clopidogrel Bisulfate 75 mg 75 mg DAILY PO 11/13/16 09:00 12/01/16 08:01 (Levophed-Dextrose Drip) 250 ml @ 0 mls/hr TITRATE IV 11/12/16 13:30 11/12/16 18:48 Miscellaneous Information Patient in critical care unit? Ass... Q361D XX 11/12/16 18:30 11/12/16 18:30 (D50w (Vial) Inj) 25 ml UNSCH PRN IV PUSH 11/13/16 10:15 11/30/16 10:03 Glucagon 1 mg 1 mg UNSCH PRN OTHER 11/13/16 10:15 (Neosynephrine Inj/D5W 500 ml Inj) 500 ml @ 0 mls/hr TITRATE IV 11/14/16 17:15 11/15/16 12:54 (Brethine Inj) 1 mg UNSCH PRN SQ 11/14/16 16:15 (Restoril) 7.5 mg HS PRN PO 11/15/16 22:45 11/30/16 21:49 Aspirin 81 mg 81 mg DAILY PO 11/16/16 09:00 12/01/16 08:01 (Pitressin Inj/ D5W 100 ml Inj) 100 ml @ 0 mls/hr Q0M IV 11/18/16 14:45 11/18/16 14:59 (Lovenox Inj) 60 mg Q12H SQ 11/20/16 16:00 12/01/16 04:33 (Pill Splitter) 1 ea UNSCH PRN OTHER 11/21/16 11:00 Metoprolol Tartrate 25 mg 25 mg Q12HR PO 11/22/16 21:00 12/01/16 08:01 (NS + KCl 20 Meq Inj) 1,000 ml @ 100 mls/hr Q10H IV 11/23/16 08:00 12/01/16 08:00 (Cordarone) 200 mg DAILY PO 11/23/16 09:00 12/01/16 08:01 (Vasotec) 5 mg DAILY PO 11/26/16 09:00 12/01/16 08:01 (Mag-Ox) 400 mg Q12HR PO 11/26/16 21:00 12/01/16 08:01 (Deltasone) 5 mg DAILY PO 11/30/16 09:00 12/01/16 08:01 (Morphine Inj) 2 mg Q3H PRN IV PUSH 11/30/16 00:45 11/30/16 05:59 (Levaquin) 500 mg Q24H PO 11/30/16 20:00 11/30/16 21:44 A/P Assessment and Plan 1. Acute Metabolic Encephalopathy Resolved. 2. Respiratory Insufficiency/Bilateral Pleural Effusion/Possible HCAP/COPD/ Adenocarcinoma of the lung/History of PE continue to keep oxygen saturation over 92%, Bronchodilator, Mucolytic, incentive spirometry, Steroids. Status post Chest tube placement 11/12 Exudate effusion per LDH criteria, removed 11/19/16 Cytology negative for malignancy, Status post right thoracentesis with 1.2 L fluid removed, Transudate status post Pigtail catheter drainage of Lower pleural effusion, 11/18/16. Removed Chest tube. as per ID okay to discharge on Levaquin for seven days. 3. Acute on chronic systolic heart failure, Ischemic cardiomyopathy, Atrial Fibrillation with RVR. 4. Hypotension/CAD/status post STEMI 07/08/16 with PCI/DELMY to D1, on Amiodarone 400 mg daily and Metoprolol 12.5 mg BID. EF 30-35% Continue Plavix. 5. Diarrhea/History of C Diff Colitis. On Protonix as per Collection Support Specialist. Improving diarrhea. 6. Staph aureus Bacteremia/Severe Sepsis with worsening Leukocytosis, UTI/ Possible HCAP, History of C Diff Colitis ID following, he was on Vancomycin, Cefepime, Micafungin, Flagyl by mouth at this time, continue on Ceftriaxone with Diagnosis of MSSA Bacteremia, BC negative, Pneumonia with effusions, Proteus UTI Catheter related. Urine Proteus Mirabilis Staph species. Prior C diff. and persistent Leukocytosis. 7. Non Small cell lung cancer of Right mainstem bronchus diagnosed with bulky mediastinal disease plus compression of his bronchus, improvement after chemotherapy and radiation therapy, on Lovenox 60 mg BID for atrial fibrillation 8. History of Stroke x 2 with left sided residual weakness. 9. Pulmonary Emboli 10. PAD status post revascularization of the lower extremities. 11. CAD status post [place], status post Cardiac Catheterization with PCI and drug eluting stent. History of coronary artery disease/[place], status post cardiac catheterization with PCI and drug eluding stent. 12. Electrolyte derangement Hypophosphatemia and Hypomagnesemia replaced and following. Bilateral lower extremity SCDs. On Lovenox 60 mg subcutaneous every 12, IV Protonix Following recommendations by PT/OT. Discussed with patient and nurse in the room. Discharge Planning cleared for discharge by ID specialist on Levaquin Okay to discharge tomorrow by customer experience specialist. Chaka Larson MD Nov 30, 2016 11:38
[2016-11-30] MEDS ORDERED: POTASSIUM PHOSPHATE INJ 15 MMOL in SODIUM CHLORIDE 0.9% INJ 150 ML IV ONE (14:00)
--- NOTE | 2016-11-30 19:21 | HHI.PR ---
Addendum to Inpatient Note Addendum Reason: Additional Documentation Additional Information reviewed pulm notes. Likely has component of post obstructive pneumonia, Lung cancer related burden of disease (high WBC from tumor burden) as well as steroid related (high WBC) DC ceftriaxone IV Start Levaquin recommend a 7 day course on discharge. Ok to DC from ID standpoint. Will sign off please call back if any change in clinical condition or questions. Melba Michel MD Nov 30, 2016 19:21
[2016-11-30] MEDS: LEVOFLOXACIN 500 MG TAB PO SCH (21:44)
--- NOTE | 2016-11-30 23:37 | PD.ONC.PN ---
Subjective Subjective Remarks weak/deconditioned awake and alert no pain no fevers/no chills d/w RN d/w case management Objective Data Date Time Temp Pulse Resp B/P Pulse Ox O2 Delivery O2 Flow Rate FiO2 11/30/16 20:00 97.2 102 18 107/69 94 11/30/16 16:00 96.1 102 20 117/74 94 11/30/16 12:00 96.9 82 20 110/74 94 11/30/16 09:20 92 11/30/16 08:00 96.5 86 18 108/70 94 11/30/16 06:51 16 11/30/16 04:00 97.0 86 17 110/75 97 11/30/16 01:47 96.8 88 18 99/60 96 11/30/16 01:20 18 11/30/16 00:54 97.7 96 17 101/68 97 11/30/16 00:00 97.7 96 17 101/68 97 11/30/16 11/30/16 11/30/16 07:00 15:00 23:00 Intake Total 1420 ml 300 ml Output Total 200 ml 300 ml 300 ml Balance -200 ml 1120 ml 0 ml Result Diagram: 11/30/16 0638 11/30/1638 Laboratory Results Laboratory Tests Test 11/30/16 06:38 White Blood Count 37.0 TH/MM3 Red Blood Count 2.92 MIL/MM3 Hemoglobin 8.5 GM/DL Hematocrit 26.3 % Mean Corpuscular Volume 90.2 FL Mean Corpuscular Hemoglobin 29.2 PG Mean Corpuscular Hemoglobin 32.4 % Concent Red Cell Distribution Width 17.5 % Platelet Count 172 TH/MM3 Mean Platelet Volume 7.0 FL Neutrophils (%) (Auto) 94.7 % Lymphocytes (%) (Auto) 0.7 % Monocytes (%) (Auto) 4.5 % Eosinophils (%) (Auto) 0.0 % Basophils (%) (Auto) 0.1 % Neutrophils # (Auto) 35.0 TH/MM3 Lymphocytes # (Auto) 0.3 TH/MM3 Monocytes # (Auto) 1.7 TH/MM3 Eosinophils # (Auto) 0.0 TH/MM3 Basophils # (Auto) 0.0 TH/MM3 CBC Comment AUTO DIFF Differential Total Cells 100 Counted Neutrophils % (Manual) 89 % Band Neutrophils % 9 % Lymphocytes % 1 % Monocytes % 1 % Neutrophils # (Manual) 36.3 TH/MM3 Differential Comment FINAL DIFF MANUAL Toxic Granulation 1+ Platelet Estimate NORMAL Platelet Morphology Comment NORMAL Ovalocytes 1+ [place] Cells 1+ Sodium Level 138 MEQ/L Potassium Level 3.8 MEQ/L Chloride Level 107 MEQ/L Carbon Dioxide Level 19.3 MEQ/L Anion Gap 12 MEQ/L Blood Urea Nitrogen 8 MG/DL Creatinine 0.22 MG/DL Estimat Glomerular Filtration 428 ML/MIN Rate Random Glucose 43 MG/DL Calcium Level 6.7 MG/DL Protein Corrected Calcium 8.2 MG/DL Phosphorus Level 2.0 MG/DL Magnesium Level 1.5 MG/DL Total Protein 4.2 GM/DL Administered Medications Medications (Trade) Dose Ordered Sig/Elvia Route PRN Reason Start Time Stop Time Status Last Admin Dose Admin IV Flush (NS Flush) 2 ml UNSCH PRN IV FLUSH FLUSH AFTER USING IV ACCESS 11/12/16 11:00 11/19/16 09:00 IV Flush (NS Flush) 2 ml BID IV FLUSH 11/12/16 21:00 11/30/16 10:10 Acetaminophen (Tylenol) 650 mg Q6H PRN PO PAIN 1-10 AND/OR FEVER >101F 11/12/16 12:00 11/30/16 00:30 Pantoprazole Sodium (Protonix Inj) 40 mg DAILY IV 11/13/16 09:00 11/30/16 10:10 Tiotropium [place] (Spiriva Inh) 18 mcg DAILY INH 11/13/16 09:00 11/30/16 10:10 Clopidogrel Bisulfate 75 mg 75 mg DAILY PO 11/13/16 09:00 11/30/16 10:09 Norepinephrine Bitartrate (Levophed-Dextrose Drip) 250 ml @ 0 mls/hr TITRATE IV 11/12/16 13:30 11/12/16 18:48 Miscellaneous Information Patient in critical care unit? Ass... Q361D XX 11/12/16 18:30 11/12/16 18:30 Dextrose 25 ml 25 ml UNSCH PRN IV PUSH HYPOGLYCEMIA-SEE COMMENTS 11/13/16 10:15 11/30/16 10:03 Phenylephrine HCl/ Dextrose (Neosynephrine Inj/D5W 500 ml Inj) 500 ml @ 0 mls/hr TITRATE IV 11/14/16 17:15 11/15/16 12:54 Temazepam (Restoril) 7.5 mg HS PRN PO SLEEP 11/15/16 22:45 11/30/16 21:49 Aspirin 81 mg 81 mg DAILY PO 11/16/16 09:00 11/30/16 10:08 Vasopressin/ Dextrose (Pitressin Inj/ D5W 100 ml Inj) 100 ml @ 0 mls/hr Q0M IV 11/18/16 14:45 11/18/16 14:59 Enoxaparin Sodium (Lovenox Inj) 60 mg Q12H SQ 11/20/16 16:00 11/30/16 16:03 Metoprolol Tartrate 25 mg 25 mg Q12HR PO 11/22/16 21:00 11/30/16 21:00 Potassium Chloride/Sodium Chloride (NS + KCl 20 Meq Inj) 1,000 ml @ 100 mls/hr Q10H IV 11/23/16 08:00 11/30/16 21:57 Amiodarone HCl (Cordarone) 200 mg DAILY PO 11/23/16 09:00 11/30/16 10:09 Enalapril Maleate (Vasotec) 5 mg DAILY PO 11/26/16 09:00 11/29/16 08:26 Magnesium Oxide (Mag-Ox) 400 mg Q12HR PO 11/26/16 21:00 11/30/16 21:44 Prednisone (Deltasone) 5 mg DAILY PO 11/30/16 09:00 11/30/16 10:08 Morphine Sulfate (Morphine Inj) 2 mg Q3H PRN IV PUSH pain >5 11/30/16 00:45 11/30/16 05:59 Levofloxacin (Levaquin) 500 mg Q24H PO 11/30/16 20:00 11/30/16 21:44 Objective Remarks GENERAL: weak and cachectic SKIN: Warm and dry. EYES: No scleral icterus. No injection or drainage. NECK: Supple, trachea midline. No JVD or lymphadenopathy. LYMPHATIC: No adenopathy. CARDIOVASCULAR: Regular rate and rhythm without murmurs. RESPIRATORY: scattered rhonchi GASTROINTESTINAL: Abdomen soft, non-tender, nondistended. EXTREMITIES: No cyanosis, or edema. Assessment/Plan Problem List: (1) Septic shock Status: Acute Plan: --on IV abx--Rocephin per ID --most recent BC with no growth --last positive BC was 11/13 --CT chest showed bilateral pleural effusions, left greater than right. 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 --was some improvement of his tumor bulk with concurrent chemotherapy and radiation. (3) Normocytic anemia Status: Acute Plan: -- recommend keeping his hemoglobin greater than 8. (4) Afib Status: Chronic Plan: --on Lovenox 60mg SQ BID --cardiology following. --on Amiodarone + Lopressor Assessment 65y/o with NSCLC admitted with sepsis. h/o tobacco abuse. COPD. Hypertension. Hyperlipidemia. 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 Pulmonary embolism. Peripheral vascular disease status post revascularization of the lower extremities. History of coronary artery disease/[place], status post cardiac catheterization with PCI and drug eluding stent. Plan - continue PT - Hb 8.5 - 1 unit of pRBC --hx of CAD and weakness. plans for d/c - replace phosp - of IV abx-- on levaquin D/C to rehab tomorrow d/w case management Rj Monteiro MD Nov 30, 2016 23:37
[2016-12-01] VITALS (9 sets, daily range): BP systolic 96–128; BP diastolic 63–84; PULSE 84–99; RESP 16–20; TEMP 96.4–97.3; O2SAT 93–96
[2016-12-01] MEDS ORDERED: ACETAMINOPHEN 325 MG TAB PO SCH (00:45)
[2016-12-01] MEDS ORDERED: diphenhydrAMINE HCL 25 MG CAP PO SCH (00:45)
[2016-12-01] MEDS: ENOXAPARIN SODIUM 60 MG/0.6 ML SYRINGE SQ SCH ×2 (04:33→16:00)
[2016-12-01] MEDS: NS + KCL 20 MEQ INJ 1,000 ML IV SCH (08:00)
[2016-12-01] MEDS: TIOTROPIUM BROMIDE 18 MCG INH INH SCH (08:00)
[2016-12-01] MEDS: ASPIRIN EC 81 MG TABEC PO SCH (08:01)
[2016-12-01] MEDS: METOPROLOL TARTRATE 25 MG TAB PO SCH ×2 (08:01→20:35)
[2016-12-01] MEDS: predniSONE 5 MG TAB PO SCH (08:01)
[2016-12-01] MEDS: AMIODARONE 200 MG TAB PO SCH (08:01)
[2016-12-01] MEDS: MAGNESIUM OXIDE 400 MG TAB PO SCH ×2 (08:01→20:33)
[2016-12-01] MEDS: ENALAPRIL MALEATE 5 MG TAB PO SCH (08:01)
[2016-12-01] MEDS: CLOPIDOGREL 75 MG TAB PO SCH (08:01)
[2016-12-01] MEDS: PANTOPRAZOLE SODIUM 40 MG VIAL IV SCH (08:02)
[2016-12-01] MEDS: SODIUM CHLORIDE 0.9% FLUSH 5 ML FLUSH IV FLUSH SCH ×2 (08:02→20:33)
--- NOTE | 2016-12-01 12:50 | HHI.PR ---
Subjective Remarks This is a 64-year-old male with history of COPD, hypertension, coronary artery disease, STEMI on 07/08/16 s/p PCI and DELMY (Dr. Crouch), history of C. difficile colitis, non-small cell lung cancer receiving chemoradiation per Dr. Monteiro, history of pulmonary embolism on Lovenox who was admitted to hospital recently from 07/08-08/31/16 with above diagnoses. noted Mediastinal and Lung mass, as Non Small Cell Lung Cancer(Adenocarcinoma), status post Bronchoscopy. Brought from snf with fever, Hypotension, Encephalopathy, Septic, UTI, HCAP, ID specialist following, was in Intensive Care Unit received Zosyn in ER and given Cefepime and Flagyl by speech language specialist and Vancomycin. 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 11/13 Patient is on 35% VM, afebrile. Off Levophed 11/14 Patient was started on Cardizem drip 15mg/hr overnight in addition was given Lopressor 2.5mg IV x1 for tachycardia. Afebrile. On Heparin drip. s/p transfusion 1u PRBC for Hgb 6.9 now 8.1. 11/15 Patient is on Neosyn 40 mics, off vasopressin. He was given Amiodarone bolus overnight for Afib with RVR HR remains 120-130's. Afebrile. 11/16: Remains on Cardizem and amiodarone. Off vasopressors. Patient's CXR appears worse. He does not appear in distress. Palliative care consulted and family and patient will decide on hospice after d/w Dr. Monteiro 11/17: Bedside ultrasound shows fairly large left pleural effusion despite chest tube. Possibly loculated. We'll hold off thoracentesis to additional chest tube and the patient makes decisions about comfort measures versus aggressive care. Patient waiting to talk to Dr. Monteiro to decide on hospice 11/18: Patient declined hospice and wants to continue aggressive care at this time. White count has increased to 48.9 with 97% neutrophils, I have requested ID reevaluation. Large right pleural effusion drained today 1.2 L clear fluid. UO 4L in 24 hours 11/19/16: Patient had right thoracentesis yesterday 11/18 with 1.2 L pleural fluid removed. A new left pigtail chest tube was placed also yesterday 11/18 with 580 mL of slightly blood-tinged pleural fluid removal over 24 hours. Patient now on nasal cannula tolerating well. Left 32 D[place]hi chest tube was removed today 11/20: Breathing more comfortably now. Large bore chest tube removed yesterday. No pneumothorax. WBC count slightly improved from 45.5 to 42.5 11/21 No acute events overnight. Patient is lying in bed in NAD. Afebrile. WBC 43 11/22 Patient is on 2L oxygen with good sats. Afebrile. WBC 39 today from 43. Awake and alert. 11/23 No acute events overnight. WBC trending down 36 today. Afebrile. 11/24 patient transferred to Hospitalist team for today. as per Infectious Disease specialist MSSA Bacteremia, MSSA in Urine, Pneumonia with Effusions, Proteus UTI, Prior history of Diarrhea, Discontinued Vancomycin, Discontinued Micafungin continued Cefepime and Flagyl by mouth, check C Diff PCR. 11/25 Patient stable in his bedroom, discussed with nurse Mr. Moreno replacing Phosphorus level. 11/26 Patient stable in his bedroom no nausea, vomit or diarrhea, discussed with patient and his . and nurse 11/27 Seen in the room in the presence of his , unable to continue further management for his Cancer due to multiple comorbidities, pricing specialist recommends to keep Hemoglobin over 8 , continue Lovenox, CAD Cardiology following, to continue supportive care, as per ID specialist MSSA Bacteremia, BC negative, Pneumonia with effusions Proteus UTI catheter related, Prior C Diff, Persistent Leukocytosis, recommended to continue Rocephin 11/28 Seen in his bedroom in the presence of nurse Hailey, continue present care, no complaint of Nausea, vomit or diarrhea multiple generalized Ecchymosis. 11/29 Patient seen in his bedroom Continue Rocephin as per ID specialist, No further treatment for his Lung cancer as per recreational specialist will be able to discharge during the next 24 to 48 hours. 11/30 No changes to anterior assessment. 12/01 stable as per Oncology not able to give more treatment due to comorbidities. stable in his bedroom. Objective Vital Signs Date Time Temp Pulse Resp B/P Pulse Ox O2 Delivery O2 Flow Rate FiO2 12/01/16 07:55 97.0 88 20 128/80 95 12/01/16 04:30 96.8 85 16 121/77 94 12/01/16 04:00 96.8 84 16 121/77 94 12/01/16 02:30 96.9 84 16 110/63 94 12/01/16 02:15 96.8 84 16 107/64 96 12/01/16 00:00 97.3 89 16 106/69 94 11/30/16 20:00 104 11/30/16 20:00 97.2 102 18 107/69 94 11/30/16 16:00 96.1 102 20 117/74 94 I/O 11/30/16 11/30/16 11/30/16 12/01/16 12/01/16 12/01/16 07:00 15:00 23:00 07:00 15:00 23:00 Intake Total 1420 ml 300 ml 60 ml 120 ml Output Total 200 ml 300 ml 300 ml 425 ml Balance -200 ml 1120 ml 0 ml -365 ml 120 ml Intake Oral 720 ml 300 ml 60 ml 120 ml IV Total 700 ml Output Urine Total 200 ml 300 ml 300 ml 425 ml # Bowel Movements 1 2 1 Result Diagram: 11/30/16 0638 11/30/16 0638 Imaging Last Impressions Chest X-Ray 11/28/16 0000 Signed Impressions: Service Date/Time: Monday, November 28, 2016 11:38 - CONCLUSION: Stable small right pleural effusion with associative volume loss and/or consolidation. Trace left pleural effusion with airspace consolidation in the left lower lung zone. Sy Whitehead MD Chest CT 11/12/16 0000 Signed Impressions: Service Date/Time: Saturday, November 12, 2016 11:23 - CONCLUSION: 1. Bilateral pleural effusions left greater than right. Bilateral dependent parenchymal lung opacity indicating atelectasis. 2. Decrease in size of right hilar and mediastinal mass/enlarged lymph nodes. Prashant Valdez MD Procedures Thoracentesis, Pigtail, Chest tube placement. Other Results Laboratory Tests Test 11/29/16 11/29/16 11/30/16 12/01/16 11:03 17:43 06:38 00:09 Hypersegmented Polys 1+ Hematology Comments Antibody Screen NEGATIVE White Blood Count 37.0 TH/MM3 Red Blood Count 2.92 MIL/MM3 Hemoglobin 8.5 GM/DL Hematocrit 26.3 % Mean Corpuscular Volume 90.2 FL Mean Corpuscular Hemoglobin 29.2 PG Mean Corpuscular Hemoglobin 32.4 % Concent Red Cell Distribution Width 17.5 % Platelet Count 172 TH/MM3 Mean Platelet Volume 7.0 FL Neutrophils (%) (Auto) 94.7 % Lymphocytes (%) (Auto) 0.7 % Monocytes (%) (Auto) 4.5 % Eosinophils (%) (Auto) 0.0 % Basophils (%) (Auto) 0.1 % Neutrophils # (Auto) 35.0 TH/MM3 Lymphocytes # (Auto) 0.3 TH/MM3 Monocytes # (Auto) 1.7 TH/MM3 Eosinophils # (Auto) 0.0 TH/MM3 Basophils # (Auto) 0.0 TH/MM3 CBC Comment AUTO DIFF Differential Total Cells 100 Counted Neutrophils % (Manual) 89 % Band Neutrophils % 9 % Lymphocytes % 1 % Monocytes % 1 % Neutrophils # (Manual) 36.3 TH/MM3 Differential Comment FINAL DIFF MANUAL Toxic Granulation 1+ Platelet Estimate NORMAL Platelet Morphology Comment NORMAL Ovalocytes 1+ [place] Cells 1+ Sodium Level 138 MEQ/L Potassium Level 3.8 MEQ/L Chloride Level 107 MEQ/L Carbon Dioxide Level 19.3 MEQ/L Anion Gap 12 MEQ/L Blood Urea Nitrogen 8 MG/DL Creatinine 0.22 MG/DL Estimat Glomerular Filtration 428 ML/MIN Rate Random Glucose 43 MG/DL Calcium Level 6.7 MG/DL Protein Corrected Calcium 8.2 MG/DL Phosphorus Level 2.0 MG/DL Magnesium Level 1.5 MG/DL Total Protein 4.2 GM/DL Blood Type B NEGATIVE Crossmatch Leukocyte-Reduced Red Blood Cells Blood Bank Comment Objective Remarks GENERAL: Patient is lying in be din NAD SKIN: Warm and dry. HEAD: Normocephalic. EYES: No scleral icterus. No injection or drainage. NECK: Supple, trachea midline. No JVD or lymphadenopathy. CARDIOVASCULAR: Regular rate and rhythm without murmurs, gallops, or rubs. RESPIRATORY: Breath sounds equal bilaterally. No accessory muscle use. GASTROINTESTINAL: Abdomen soft, non-tender, nondistended. MUSCULOSKELETAL: No cyanosis, or edema. BACK: Nontender without obvious deformity. No CVA tenderness. Neuro: Awake and alert Medications and IVs Current Medications Medications (Trade) Dose Ordered Sig/Elvia Route Start Time Stop Time Status Last Admin (NS Flush) 2 ml UNSCH PRN IV FLUSH 11/12/16 11:00 11/19/16 09:00 (NS Flush) 2 ml BID IV FLUSH 11/12/16 21:00 11/30/16 10:10 (Tylenol) 650 mg Q6H PRN PO 11/12/16 12:00 11/30/16 00:30 (Protonix Inj) 40 mg DAILY IV 11/13/16 09:00 12/01/16 08:02 (Spiriva Inh) 18 mcg DAILY INH 11/13/16 09:00 12/01/16 08:00 Clopidogrel Bisulfate 75 mg 75 mg DAILY PO 11/13/16 09:00 12/01/16 08:01 (Levophed-Dextrose Drip) 250 ml @ 0 mls/hr TITRATE IV 11/12/16 13:30 11/12/16 18:48 Miscellaneous Information Patient in critical care unit? Ass... Q361D XX 11/12/16 18:30 11/12/16 18:30 (D50w (Vial) Inj) 25 ml UNSCH PRN IV PUSH 11/13/16 10:15 11/30/16 10:03 Glucagon 1 mg 1 mg UNSCH PRN OTHER 11/13/16 10:15 (Neosynephrine Inj/D5W 500 ml Inj) 500 ml @ 0 mls/hr TITRATE IV 11/14/16 17:15 11/15/16 12:54 ([place] Inj) 1 mg UNSCH PRN SQ 11/14/16 16:15 (Restoril) 7.5 mg HS PRN PO 11/15/16 22:45 11/30/16 21:49 Aspirin 81 mg 81 mg DAILY PO 11/16/16 09:00 12/01/16 08:01 (Pitressin Inj/ D5W 100 ml Inj) 100 ml @ 0 mls/hr Q0M IV 11/18/16 14:45 11/18/16 14:59 (Lovenox Inj) 60 mg Q12H SQ 11/20/16 16:00 12/01/16 04:33 (Pill Splitter) 1 ea UNSCH PRN OTHER 11/21/16 11:00 Metoprolol Tartrate 25 mg 25 mg Q12HR PO 11/22/16 21:00 12/01/16 08:01 (NS + KCl 20 Meq Inj) 1,000 ml @ 100 mls/hr Q10H IV 11/23/16 08:00 12/01/16 08:00 (Cordarone) 200 mg DAILY PO 11/23/16 09:00 12/01/16 08:01 (Vasotec) 5 mg DAILY PO 11/26/16 09:00 12/01/16 08:01 (Mag-Ox) 400 mg Q12HR PO 11/26/16 21:00 12/01/16 08:01 (Deltasone) 5 mg DAILY PO 11/30/16 09:00 12/01/16 08:01 (Morphine Inj) 2 mg Q3H PRN IV PUSH 11/30/16 00:45 11/30/16 05:59 (Levaquin) 500 mg Q24H PO 11/30/16 20:00 11/30/16 21:44 A/P Assessment and Plan 1. Acute Metabolic Encephalopathy Resolved. 2. Respiratory Insufficiency/Bilateral Pleural Effusion/Possible HCAP/COPD/ Adenocarcinoma of the lung/History of PE continue to keep oxygen saturation over 92%, Bronchodilator, Mucolytic, incentive spirometry, Steroids. Status post Chest tube placement 11/12 Exudate effusion per LDH criteria, removed 11/19/16 Cytology negative for malignancy, Status post right thoracentesis with 1.2 L fluid removed, Transudate status post Pigtail catheter drainage of Lower pleural effusion, 11/18/16. Removed Chest tube. as per ID okay to discharge on Levaquin for seven days. 3. Acute on chronic systolic heart failure, Ischemic cardiomyopathy, Atrial Fibrillation with RVR. 4. Hypotension/CAD/status post STEMI 07/08/16 with PCI/DELMY to D1, on Amiodarone 400 mg daily and Metoprolol 12.5 mg BID. EF 30-35% Continue Plavix. 5. Diarrhea/History of C Diff Colitis. On Protonix as per Supervisor Lime. Improving diarrhea. 6. Staph aureus Bacteremia/Severe Sepsis with worsening Leukocytosis, UTI/ Possible HCAP, History of C Diff Colitis ID following, he was on Vancomycin, Cefepime, Micafungin, Flagyl by mouth at this time, continue on Ceftriaxone with Diagnosis of MSSA Bacteremia, BC negative, Pneumonia with effusions, Proteus UTI Catheter related. Urine Proteus Mirabilis Staph species. Prior C diff. and persistent Leukocytosis. 7. Non Small cell lung cancer of Right mainstem bronchus diagnosed with bulky mediastinal disease plus compression of his bronchus, improvement after chemotherapy and radiation therapy, on Lovenox 60 mg BID for atrial fibrillation 8. History of Stroke x 2 with left sided residual weakness. 9. Pulmonary Emboli 10. PAD status post revascularization of the lower extremities. 11. CAD status post [place], status post Cardiac Catheterization with PCI and drug eluting stent. History of coronary artery disease/[place], status post cardiac catheterization with PCI and drug eluding stent. 12. Electrolyte derangement Hypophosphatemia and Hypomagnesemia replaced and following. Bilateral lower extremity SCDs. On Lovenox 60 mg subcutaneous every 12, IV Protonix Following recommendations by PT/OT. Discussed with patient and nurse in the room. Discharge Planning cleared for discharge by ID specialist on Levaquin Okay to discharge tomorrow by recreational specialist. Chaka Larson MD Dec 01, 2016 12:50
--- NOTE | 2016-12-01 14:59 | PD.ONC.PN ---
Subjective Subjective Remarks Afebrile overnight. Patient has a skin tear on his chest that has been oozing this afternoon. No bleeding elsewhere. Objective Data Date Time Temp Pulse Resp B/P Pulse Ox O2 Delivery O2 Flow Rate FiO2 12/01/16 12:00 96.9 88 18 121/72 94 12/01/16 07:55 97.0 88 20 128/80 95 12/01/16 04:30 96.8 85 16 121/77 94 12/01/16 04:00 96.8 84 16 121/77 94 12/01/16 02:30 96.9 84 16 110/63 94 12/01/16 02:15 96.8 84 16 107/64 96 12/01/16 00:00 97.3 89 16 106/69 94 11/30/16 20:00 104 11/30/16 20:00 97.2 102 18 107/69 94 11/30/16 16:00 96.1 102 20 117/74 94 12/01/16 12/01/16 12/01/16 07:00 15:00 23:00 Intake Total 60 ml 240 ml Output Total 425 ml Balance -365 ml 240 ml Result Diagram: 11/30/16 0638 11/30/1638 Laboratory Results Laboratory Tests Test 12/01/16 00:09 Blood Type B NEGATIVE Crossmatch Leukocyte-Reduced Red Blood Cells Blood Bank Comment Administered Medications Medications (Trade) Dose Ordered Sig/Elvia Route PRN Reason Start Time Stop Time Status Last Admin Dose Admin IV Flush (NS Flush) 2 ml UNSCH PRN IV FLUSH FLUSH AFTER USING IV ACCESS 11/12/16 11:00 11/19/16 09:00 IV Flush (NS Flush) 2 ml BID IV FLUSH 11/12/16 21:00 11/30/16 10:10 Acetaminophen (Tylenol) 650 mg Q6H PRN PO PAIN 1-10 AND/OR FEVER >101F 11/12/16 12:00 11/30/16 00:30 Pantoprazole Sodium (Protonix Inj) 40 mg DAILY IV 11/13/16 09:00 12/01/16 08:02 Tiotropium [place] (Spiriva Inh) 18 mcg DAILY INH 11/13/16 09:00 12/01/16 08:00 Clopidogrel Bisulfate 75 mg 75 mg DAILY PO 11/13/16 09:00 12/01/16 08:01 Norepinephrine Bitartrate (Levophed-Dextrose Drip) 250 ml @ 0 mls/hr TITRATE IV 11/12/16 13:30 11/12/16 18:48 Miscellaneous Information Patient in critical care unit? Ass... Q361D XX 11/12/16 18:30 11/12/16 18:30 Dextrose 25 ml 25 ml UNSCH PRN IV PUSH HYPOGLYCEMIA-SEE COMMENTS 11/13/16 10:15 11/30/16 10:03 Phenylephrine HCl/ Dextrose (Neosynephrine Inj/D5W 500 ml Inj) 500 ml @ 0 mls/hr TITRATE IV 11/14/16 17:15 11/15/16 12:54 Temazepam (Restoril) 7.5 mg HS PRN PO SLEEP 11/15/16 22:45 11/30/16 21:49 Aspirin 81 mg 81 mg DAILY PO 11/16/16 09:00 12/01/16 08:01 Vasopressin/ Dextrose (Pitressin Inj/ D5W 100 ml Inj) 100 ml @ 0 mls/hr Q0M IV 11/18/16 14:45 11/18/16 14:59 Enoxaparin Sodium (Lovenox Inj) 60 mg Q12H SQ 11/20/16 16:00 12/01/16 04:33 Metoprolol Tartrate (Lopressor) 25 mg Q12HR PO 11/22/16 21:00 12/01/16 08:01 Amiodarone HCl (Cordarone) 200 mg DAILY PO 11/23/16 09:00 12/01/16 08:01 Enalapril Maleate (Vasotec) 5 mg DAILY PO 11/26/16 09:00 12/01/16 08:01 Magnesium Oxide (Mag-Ox) 400 mg Q12HR PO 11/26/16 21:00 12/01/16 08:01 Prednisone (Deltasone) 5 mg DAILY PO 11/30/16 09:00 12/01/16 08:01 Morphine Sulfate (Morphine Inj) 2 mg Q3H PRN IV PUSH pain >5 11/30/16 00:45 11/30/16 05:59 Levofloxacin (Levaquin) 500 mg Q24H PO 11/30/16 20:00 11/30/16 21:44 Objective Remarks GENERAL: Weak male, supine in bed. SKIN: Warm and dry. chest wall with slowly oozing less than 1cm skin tear. HEAD: Normocephalic. EYES: No scleral icterus. No injection or drainage. NECK: Supple, trachea midline. CARDIOVASCULAR: +S1/S2 RESPIRATORY: Breath sounds equal bilaterally. No accessory muscle use. GASTROINTESTINAL: Abdomen soft, non-tender, nondistended. EXTREMITIES: No cyanosis. NEUROLOGICAL: awake, and alert, normal speech. 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 --was some improvement of his tumor bulk with concurrent chemotherapy and radiation. (2) Normocytic anemia Status: Acute Plan: -- recommend keeping his hemoglobin greater than 8. (3) Afib Status: Chronic Plan: --on Lovenox 60mg SQ BID, also on Plavix + ASA --cardiology following. --on Amiodarone + Lopressor Assessment 65y/o with NSCLC admitted with sepsis. h/o tobacco abuse. COPD. Hypertension. Hyperlipidemia. 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 Pulmonary embolism. Peripheral vascular disease status post revascularization of the lower extremities. History of coronary artery disease/[place], status post cardiac catheterization with PCI and drug eluding stent. Plan 1. will check cbc, coags, fibrinogen today. 2. hold afternoon Lovenox. 3. pressure dressing to skin tear Attending Statement The exam, history, and the medical decision-making described in the above note were completed with the assistance of the mid-level provider. I reviewed and agree with the findings presented. I attest that I had a [id number] encounter with the patient on the same day, and personally performed and documented my assessment and findings in the medical record. bleeding stopped from skin tear. if recurs try thrombin powder lovenox held. restart in AM replace Phosph. check daily electrolytes and replete as needed Hb up after transfusion d/w Lizbeth Gutierrez Dec 01, 2016 14:58 Rj Monteiro MD Dec 01, 2016 23:35
--- NOTE | 2016-12-01 18:15 | HHI.PR ---
Subjective Remarks No complaints .Off O2 sat 94. Remains weak. Objective Vital Signs Date Time Temp Pulse Resp B/P Pulse Ox O2 Delivery O2 Flow Rate FiO2 12/01/16 16:30 96.4 92 20 118/84 93 12/01/16 12:00 96.9 88 18 121/72 94 12/01/16 07:55 97.0 88 20 128/80 95 12/01/16 04:30 96.8 85 16 121/77 94 12/01/16 04:00 96.8 84 16 121/77 94 12/01/16 02:30 96.9 84 16 110/63 94 12/01/16 02:15 96.8 84 16 107/64 96 12/01/16 00:00 97.3 89 16 106/69 94 11/30/16 20:00 104 11/30/16 20:00 97.2 102 18 107/69 94 I/O 11/30/16 11/30/16 11/30/16 12/01/16 12/01/16 12/01/16 07:00 15:00 23:00 07:00 15:00 23:00 Intake Total 1420 ml 300 ml 60 ml 480 ml Output Total 200 ml 300 ml 300 ml 425 ml 300 ml 250 ml Balance -200 ml 1120 ml 0 ml -365 ml 180 ml -250 ml Intake Oral 720 ml 300 ml 60 ml 480 ml IV Total 700 ml Output Urine Total 200 ml 300 ml 300 ml 425 ml 300 ml 250 ml # Bowel Movements 1 2 3 1 Result Diagram: 11/30/16 0638 11/30/16 06 Procedures Thoracentesis, Pigtail, Chest tube placement. Objective Remarks GENERAL: This is a thinly built elderly man who is pale and and appears chronically ill. HEENT: Head normocephalic. Pupils are reactive. Tongue moist. Throat is clear. Nasal mucosa is clear. NECK: Supple. No bruits or thyroid enlargement. CHEST: Decreased breath sounds at the bases,with occ crackles at the lung bases. HEART: The heart sounds are irregular, S1 and S2, no murmur, no S3. ABDOMEN: Soft, nontender. No organomegaly. Bowel sounds are active. EXTREMITIES: Decreased peripheral pulses. Edema + of arms. NEUROLOGIC: Reflexes are 1+. The patient does have weakness of the lower extremities with some muscle wasting. SKIN: Dry. MENTAL STATUS: The patient is alert and cooperative. Assessment and Plan Assessment and Plan IMPRESSION 1. Chronic right basilar atelectasis with pleural effusion. 2. Adenocarcinoma of the right lung with metastatic disease. 3. Status post chemotherapy and radiation therapy. 4. History of C. diff colitis. 5. History of coronary artery disease. 6. Hypertension. Plan : 1. O2 at 2 L.PRN and at HS 2. IS q4h at bedside. 3. PT evaluation. 4. Cont Antibiotics Per ID. 5. prednisone 5 mg daily. 6. Daiana brown tiedward. Rubia Lora MD Dec 01, 2016 18:14
[2016-12-01 18:24] LABS: HEMATOCRIT 31.5 % (39.0-51.0); MEAN CELL VOLUME 86.3 FL (80.0-100.0); MEAN CORPUSCULAR HEMOGLOBIN 28.1 PG (27.0-34.0); MEAN CORPUSCULAR HGB CONC 32.6 % (32.0-36.0); PLATELET COUNT 165 TH/MM3 (150-450); RED BLOOD COUNT 3.65 MIL/MM3 (4.50-5.90); RED CELL DISTRIBUTION WIDTH 19.5 % (11.6-17.2); WHITE BLOOD COUNT 39.9 TH/MM3 (4.0-11.0)
[2016-12-01 18:25] LABS: HEMO FLAGS AUTO DIFF
[2016-12-01 18:34] LABS: APTT (PATIENT) 31.7 SEC (24.3-30.1); INTERNATIONAL NORMALIZED RATIO 1.1 RATIO
[2016-12-01 19:59] LABS: ACANTHOCYTES OCC (NORMAL); METAMYELOCYTES 1 % (0-1); NEUTROPHIL # MANUAL DIFF 38.3 TH/MM3 (1.8-7.7); OVALOCYTES 1+ (NORMAL); POLYS (SEG NEUTROPHILS) 95 % (16-70); WBC DIFF SAMPLE 100
[2016-12-01 20:00] LABS: PLATELET ESTIMATE SMEAR NORMAL (NORMAL); PLATELET MORPHOLOGY NORMAL (NORMAL); SCAN/DIFF FINAL DIFF MANUAL
[2016-12-01] MEDS: LEVOFLOXACIN 500 MG TAB PO SCH (20:33)
[2016-12-01] MEDS: ACETAMINOPHEN 325 MG TAB PO PRN (20:34)
[2016-12-01] MEDS: TEMAZEPAM 7.5 MG CAP PO PRN (22:27)
[2016-12-01] MEDS ORDERED: POTASSIUM PHOSPHATE INJ 15 MMOL in SODIUM CHLORIDE 0.9% INJ 150 ML IV ONE (23:30)
[2016-12-02] VITALS (8 sets, daily range): BP systolic 109–144; BP diastolic 69–88; PULSE 82–103; RESP 18–20; TEMP 96.7–98.1; O2SAT 93–97
[2016-12-02] MEDS: MORPHINE SULFATE 4 MG/ML INJ IV PUSH PRN ×2 (01:59→23:16)
[2016-12-02] MEDS: ENOXAPARIN SODIUM 60 MG/0.6 ML SYRINGE SQ SCH ×2 (04:36→14:59)
[2016-12-02 05:47] LABS: AUTOMATED NEUTROPHIL # 28.8 TH/MM3 (1.8-7.7); BASOPHIL % 0.1 % (0.0-2.0); HEMATOCRIT 27.4 % (39.0-51.0); LYMPH % 0.9 % (9.0-44.0); LYMPHOCYTE # 0.3 TH/MM3 (1.0-4.8); MEAN CELL VOLUME 85.7 FL (80.0-100.0); MEAN CORPUSCULAR HEMOGLOBIN 28.4 PG (27.0-34.0); MEAN CORPUSCULAR HGB CONC 33.2 % (32.0-36.0); MONO % 3.9 % (0.0-8.0); NEUT % 95.1 % (16.0-70.0); PLATELET COUNT 143 TH/MM3 (150-450); WHITE BLOOD COUNT 30.3 TH/MM3 (4.0-11.0)
[2016-12-02 05:51] LABS: HEMO FLAGS AUTO DIFF
[2016-12-02 06:14] LABS: BICARBONATE 19.9 MEQ/L (21.0-32.0); CALCIUM-PROTEIN CORRECTED 8.8 MG/DL (8.5-10.1); MAGNESIUM 1.2 MG/DL (1.5-2.5); POTASSIUM 3.8 MEQ/L (3.5-5.1); TOTAL BILIRUBIN ADULT 0.4 MG/DL (0.2-1.0)
[2016-12-02] MEDS: TIOTROPIUM BROMIDE 18 MCG INH INH SCH (09:00)
[2016-12-02] MEDS ORDERED: MAGNESIUM SULFATE 1 GM PREMIX 100 ML IV ONE (09:00)
--- NOTE | 2016-12-02 09:25 | PD.ONC.PN ---
Subjective Subjective Remarks Afebrile overnight. Patient resting comfortably. Bleeding to skin tear stopped. Patient eager to know when he can be d/c back to [facility]. Objective Data Date Time Temp Pulse Resp B/P Pulse Ox O2 Delivery O2 Flow Rate FiO2 12/02/16 04:00 96.7 100 18 109/69 95 12/02/16 00:00 96.7 100 18 109/69 95 12/01/16 20:00 99 12/01/16 20:00 96.6 99 18 96/67 93 12/01/16 16:30 96.4 92 20 118/84 93 12/01/16 12:00 96.9 88 18 121/72 94 Result Diagram: 12/02/16 0456 12/02/16 0456 Laboratory Results Laboratory Tests Test 12/01/16 12/02/16 18:15 04:56 White Blood Count 39.9 TH/MM3 30.3 TH/MM3 Red Blood Count 3.65 MIL/MM3 3.20 MIL/MM3 Hemoglobin 10.3 GM/DL 9.1 GM/DL Hematocrit 31.5 % 27.4 % Mean Corpuscular Volume 86.3 FL 85.7 FL Mean Corpuscular Hemoglobin 28.1 PG 28.4 PG Mean Corpuscular Hemoglobin 32.6 % 33.2 % Concent Red Cell Distribution Width 19.5 % 20.0 % Platelet Count 165 TH/MM3 143 TH/MM3 Mean Platelet Volume 6.9 FL 7.2 FL Neutrophils (%) (Auto) % 95.1 % Lymphocytes (%) (Auto) % 0.9 % Monocytes (%) (Auto) % 3.9 % Eosinophils (%) (Auto) % 0.0 % Basophils (%) (Auto) % 0.1 % Neutrophils # (Auto) TH/MM3 28.8 TH/MM3 Lymphocytes # (Auto) TH/MM3 0.3 TH/MM3 Monocytes # (Auto) TH/MM3 1.2 TH/MM3 Eosinophils # (Auto) TH/MM3 0.0 TH/MM3 Basophils # (Auto) TH/MM3 0.0 TH/MM3 CBC Comment AUTO DIFF AUTO DIFF Differential Total Cells 100 Counted Neutrophils % (Manual) 95 % Monocytes % 4 % Neutrophils # (Manual) 38.3 TH/MM3 Metamyelocytes 1 % Differential Comment FINAL DIFF MANUAL Platelet Estimate NORMAL Platelet Morphology Comment NORMAL Ovalocytes 1+ Acanthocytes OCC Prothrombin Time 12.0 SEC Prothromb Time International 1.1 RATIO Ratio Activated Partial 31.7 SEC Thromboplast Time Fibrinogen 415 mg/dL Sodium Level 138 MEQ/L Potassium Level 3.8 MEQ/L Chloride Level 106 MEQ/L Carbon Dioxide Level 19.9 MEQ/L Anion Gap 12 MEQ/L Blood Urea Nitrogen 8 MG/DL Creatinine 0.25 MG/DL Estimat Glomerular Filtration 369 ML/MIN Rate Random Glucose 65 MG/DL Calcium Level 7.1 MG/DL Protein Corrected Calcium 8.8 MG/DL Phosphorus Level 2.1 MG/DL Magnesium Level 1.2 MG/DL Total Bilirubin 0.4 MG/DL Aspartate Amino Transf 8 U/L (AST/SGOT) Alanine Aminotransferase 7 U/L (ALT/SGPT) Alkaline Phosphatase 78 U/L Total Protein 4.1 GM/DL Albumin 1.4 GM/DL Administered Medications Medications (Trade) Dose Ordered Sig/Elvia Route PRN Reason Start Time Stop Time Status Last Admin Dose Admin IV Flush (NS Flush) 2 ml UNSCH PRN IV FLUSH FLUSH AFTER USING IV ACCESS 11/12/16 11:00 11/19/16 09:00 IV Flush (NS Flush) 2 ml BID IV FLUSH 11/12/16 21:00 12/01/16 20:33 Acetaminophen (Tylenol) 650 mg Q6H PRN PO PAIN 1-10 AND/OR FEVER >101F 11/12/16 12:00 12/01/16 20:34 Pantoprazole Sodium (Protonix Inj) 40 mg DAILY IV 11/13/16 09:00 12/01/16 08:02 Tiotropium [place] (Spiriva Inh) 18 mcg DAILY INH 11/13/16 09:00 12/01/16 08:00 Clopidogrel Bisulfate 75 mg 75 mg DAILY PO 11/13/16 09:00 12/01/16 08:01 Norepinephrine Bitartrate (Levophed-Dextrose Drip) 250 ml @ 0 mls/hr TITRATE IV 11/12/16 13:30 11/12/16 18:48 Miscellaneous Information Patient in critical care unit? Ass... Q361D XX 11/12/16 18:30 11/12/16 18:30 Dextrose 25 ml 25 ml UNSCH PRN IV PUSH HYPOGLYCEMIA-SEE COMMENTS 11/13/16 10:15 11/30/16 10:03 Phenylephrine HCl/ Dextrose (Neosynephrine Inj/D5W 500 ml Inj) 500 ml @ 0 mls/hr TITRATE IV 11/14/16 17:15 11/15/16 12:54 Temazepam (Restoril) 7.5 mg HS PRN PO SLEEP 11/15/16 22:45 12/01/16 22:27 Aspirin 81 mg 81 mg DAILY PO 11/16/16 09:00 12/01/16 08:01 Vasopressin/ Dextrose (Pitressin Inj/ D5W 100 ml Inj) 100 ml @ 0 mls/hr Q0M IV 11/18/16 14:45 11/18/16 14:59 Enoxaparin Sodium (Lovenox Inj) 60 mg Q12H SQ 11/20/16 16:00 12/02/16 04:36 Metoprolol Tartrate (Lopressor) 25 mg Q12HR PO 11/22/16 21:00 12/01/16 08:01 Amiodarone HCl (Cordarone) 200 mg DAILY PO 11/23/16 09:00 12/01/16 08:01 Enalapril Maleate (Vasotec) 5 mg DAILY PO 11/26/16 09:00 12/01/16 08:01 Magnesium Oxide (Mag-Ox) 400 mg Q12HR PO 11/26/16 21:00 12/01/16 20:33 Prednisone (Deltasone) 5 mg DAILY PO 11/30/16 09:00 12/01/16 08:01 Morphine Sulfate (Morphine Inj) 2 mg Q3H PRN IV PUSH pain >5 11/30/16 00:45 12/02/16 01:59 Levofloxacin (Levaquin) 500 mg Q24H PO 11/30/16 20:00 12/01/16 20:33 Objective Remarks GENERAL: chronically ill male, supine in bed. SKIN: Warm and dry. chest wall with bandage in place over skin tear, no active bleeding. HEAD: Normocephalic. EYES: No injection or drainage. NECK: Supple, trachea midline. CARDIOVASCULAR: +S1/S2 RESPIRATORY: Breath sounds equal bilaterally. No accessory muscle use. GASTROINTESTINAL: Abdomen soft, non-tender, nondistended. EXTREMITIES: No cyanosis. NEUROLOGICAL: alert and oriented, normal speech. 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 --was some improvement of his tumor bulk with concurrent chemotherapy and radiation. (2) Normocytic anemia Status: Acute Plan: -- recommend keeping his hemoglobin greater than 8. (3) Afib Status: Chronic Plan: --on Lovenox 60mg SQ BID, also on Plavix + ASA --cardiology following. --on Amiodarone + Lopressor Assessment 65y/o with NSCLC admitted with sepsis. h/o tobacco abuse. COPD. Hypertension. Hyperlipidemia. 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 Pulmonary embolism. Peripheral vascular disease status post revascularization of the lower extremities. History of coronary artery disease/IA, status post cardiac catheterization with PCI and drug eluding stent. Plan 1. skin tear hemostasis achieved 2. monitor CBC 3. ok to resume Lovenox Attending Statement The exam, history, and the medical decision-making described in the above note were completed with the assistance of the mid-level provider. I reviewed and agree with the findings presented. I attest that I had a [id number] encounter with the patient on the same day, and personally performed and documented my assessment and findings in the medical record. Restart lovenox no blood products today Replace Mag and Phosp OK to d/c to rehab from Oncology perspective Continue PT d/w Lizbeth Gutierrez Dec 02, 2016 09:25 Rj Monteiro MD Dec 02, 2016 13:09
[2016-12-02] MEDS: SODIUM CHLORIDE 0.9% FLUSH 5 ML FLUSH IV FLUSH SCH ×2 (09:33→19:39)
[2016-12-02] MEDS: MAGNESIUM OXIDE 400 MG TAB PO SCH ×2 (09:34→19:39)
[2016-12-02] MEDS: predniSONE 5 MG TAB PO SCH (09:34)
[2016-12-02] MEDS: ENALAPRIL MALEATE 5 MG TAB PO SCH (09:35)
[2016-12-02] MEDS: AMIODARONE 200 MG TAB PO SCH (09:35)
[2016-12-02] MEDS: CLOPIDOGREL 75 MG TAB PO SCH (09:35)
[2016-12-02] MEDS: PANTOPRAZOLE SODIUM 40 MG VIAL IV SCH (09:35)
[2016-12-02] MEDS: METOPROLOL TARTRATE 25 MG TAB PO SCH ×2 (09:35→19:39)
[2016-12-02] MEDS: ASPIRIN EC 81 MG TABEC PO SCH (09:35)
[2016-12-02 09:59] LABS: BANDS 4 % (0-6); NEUTROPHIL # MANUAL DIFF 29.7 TH/MM3 (1.8-7.7); POLYS (SEG NEUTROPHILS) 94 % (16-70); WBC DIFF SAMPLE 100
[2016-12-02 10:00] LABS: BURR CELLS 1+ (NORMAL); TOXIC GRANULATION 1+ (NORMAL)
[2016-12-02] MEDS ORDERED: POTASSIUM PHOSPHATE INJ 15 MMOL in SODIUM CHLORIDE 0.9% INJ 150 ML IV ONE (10:00)
[2016-12-02 10:01] LABS: PLATELET ESTIMATE SMEAR LOW (NORMAL); PLATELET MORPHOLOGY NORMAL (NORMAL); SCAN/DIFF FINAL DIFF MANUAL
[2016-12-02] MEDS: RESP: ALBUTEROL 1.25 MG/3 ML NEB (PRN) NEB (11:30)
--- NOTE | 2016-12-02 14:43 | HHI.PR ---
Subjective Remarks No new complaints .Off O2 sat 96. Remains weak. Not able to lift legs. Has some cough. Objective Vital Signs Date Time Temp Pulse Resp B/P Pulse Ox O2 Delivery O2 Flow Rate FiO2 12/02/16 11:50 97.9 82 20 120/76 93 12/02/16 07:50 97.9 103 20 144/88 93 12/02/16 04:00 96.7 100 18 109/69 95 12/02/16 00:00 96.7 100 18 109/69 95 12/01/16 20:00 99 12/01/16 20:00 96.6 99 18 96/67 93 12/01/16 16:30 96.4 92 20 118/84 93 I/O 12/01/16 12/01/16 12/01/16 12/02/16 12/02/16 12/02/16 07:00 15:00 23:00 07:00 15:00 23:00 Intake Total 60 ml 480 ml 240 ml 120 ml Output Total 425 ml 300 ml 500 ml 200 ml Balance -365 ml 180 ml -260 ml -80 ml Intake Oral 60 ml 480 ml 240 ml 120 ml Output Urine Total 425 ml 300 ml 500 ml 200 ml # Bowel Movements 3 4 1 Result Diagram: 12/02/16 0456 12/02/16 0456 Procedures Thoracentesis, Pigtail, Chest tube placement. Objective Remarks GENERAL: This is a thinly built elderly man who is pale and and appears chronically ill. HEENT: Head normocephalic. Pupils are reactive. Tongue moist. Throat is clear. Nasal mucosa is clear. NECK: Supple. No bruits or thyroid enlargement. CHEST: Decreased breath sounds at the bases,with occ crackles at the lung bases.No wheeze HEART: The heart sounds are irregular, S1 and S2, no murmur, no S3. ABDOMEN: Soft, nontender. No organomegaly. Bowel sounds are active. EXTREMITIES: Decreased peripheral pulses. Edema + of arms. NEUROLOGIC: Reflexes are 1+. The patient does have weakness of the lower extremities with some muscle wasting. SKIN: Dry. MENTAL STATUS: The patient is alert and cooperative. Assessment and Plan Assessment and Plan IMPRESSION 1. Chronic right basilar atelectasis with pleural effusion. 2. Adenocarcinoma of the right lung with metastatic disease. 3. Status post chemotherapy and radiation therapy. 4. History of C. diff colitis. 5. History of coronary artery disease. 6. Hypertension. Plan : 1. O2 at 2 L.PRN and at HS 2. IS q4h at bedside. 3. PT evaluation. 4. OK to transfer to [facility]. 5. prednisone 5 mg daily. 6. Duoneb nebs tid.PRN. Rubia Lora MD Dec 02, 2016 14:43
[2016-12-02] MEDS: ACETAMINOPHEN 325 MG TAB PO PRN (14:59)
--- NOTE | 2016-12-02 15:54 | HHI.PR ---
Subjective Remarks This is a 64-year-old male with history of COPD, hypertension, coronary artery disease, STEMI on 07/08/16 s/p PCI and DELMY (Dr. Crouch), history of C. difficile colitis, non-small cell lung cancer receiving chemoradiation per Dr. Monteiro, history of pulmonary embolism on Lovenox who was admitted to hospital recently from 07/08-08/31/16 with above diagnoses. noted Mediastinal and Lung mass, as Non Small Cell Lung Cancer(Adenocarcinoma), status post Bronchoscopy. Brought from halfway with fever, Hypotension, Encephalopathy, Septic, UTI, HCAP, ID specialist following, was in Intensive Care Unit received Zosyn in ER and given Cefepime and Flagyl by certified peer specialist and Vancomycin. Food Products Tester Notes. 11/13 Patient is on 35% VM, afebrile. Off Levophed 11/14 Patient was started on Cardizem drip 15mg/hr overnight in addition was given Lopressor 2.5mg IV x1 for tachycardia. Afebrile. On Heparin drip. s/p transfusion 1u PRBC for Hgb 6.9 now 8.1. 11/15 Patient is on Neosyn 40 mics, off vasopressin. He was given Amiodarone bolus overnight for Afib with RVR HR remains 120-130's. Afebrile. 11/16: Remains on Cardizem and amiodarone. Off vasopressors. Patient's CXR appears worse. He does not appear in distress. Palliative care consulted and family and patient will decide on hospice after d/w Dr. Monteiro 11/17: Bedside ultrasound shows fairly large left pleural effusion despite chest tube. Possibly loculated. We'll hold off thoracentesis to additional chest tube and the patient makes decisions about comfort measures versus aggressive care. Patient waiting to talk to Dr. Monteiro to decide on hospice 11/18: Patient declined hospice and wants to continue aggressive care at this time. White count has increased to 48.9 with 97% neutrophils, I have requested ID reevaluation. Large right pleural effusion drained today 1.2 L clear fluid. UO 4L in 24 hours 11/19/16: Patient had right thoracentesis yesterday 11/18 with 1.2 L pleural fluid removed. A new left pigtail chest tube was placed also yesterday 11/18 with 580 mL of slightly blood-tinged pleural fluid removal over 24 hours. Patient now on nasal cannula tolerating well. Left 32 Tamazight chest tube was removed today 11/20: Breathing more comfortably now. Large bore chest tube removed yesterday. No pneumothorax. WBC count slightly improved from 45.5 to 42.5 11/21 No acute events overnight. Patient is lying in bed in NAD. Afebrile. WBC 43 11/22 Patient is on 2L oxygen with good sats. Afebrile. WBC 39 today from 43. Awake and alert. 11/23 No acute events overnight. WBC trending down 36 today. Afebrile. 11/24 patient transferred to Hospitalist team for today. as per Infectious Disease specialist MSSA Bacteremia, MSSA in Urine, Pneumonia with Effusions, Proteus UTI, Prior history of Diarrhea, Discontinued Vancomycin, Discontinued Micafungin continued Cefepime and Flagyl by mouth, check C Diff PCR. 11/25 Patient stable in his bedroom, discussed with nurse Mr. Moreno replacing Phosphorus level. 11/26 Patient stable in his bedroom no nausea, vomit or diarrhea, discussed with patient and his . and nurse 11/27 Seen in the room in the presence of his , unable to continue further management for his Cancer due to multiple comorbidities, lubricating specialist recommends to keep Hemoglobin over 8 , continue Lovenox, CAD Cardiology following, to continue supportive care, as per ID specialist MSSA Bacteremia, BC negative, Pneumonia with effusions Proteus UTI catheter related, Prior C Diff, Persistent Leukocytosis, recommended to continue Rocephin 11/28 Seen in his bedroom in the presence of nurse Miss Hart, continue present care, no complaint of Nausea, vomit or diarrhea multiple generalized Ecchymosis. 11/29 Patient seen in his bedroom Continue Rocephin as per ID specialist, No further treatment for his Lung cancer as per audio specialist will be able to discharge during the next 24 to 48 hours. 11/30 No changes to anterior assessment. 12/01 stable as per Oncology not able to give more treatment due to comorbidities. stable in his bedroom. 12/02 Seen and discussed with nurse Miss Crooks, he is stable in his bedroom no complaint, no Nausea, vomit or diarrhea. Objective Vital Signs Date Time Temp Pulse Resp B/P Pulse Ox O2 Delivery O2 Flow Rate FiO2 12/02/16 11:50 97.9 82 20 120/76 93 12/02/16 07:50 97.9 103 20 144/88 93 12/02/16 04:00 96.7 100 18 109/69 95 12/02/16 00:00 96.7 100 18 109/69 95 12/01/16 20:00 99 12/01/16 20:00 96.6 99 18 96/67 93 12/01/16 16:30 96.4 92 20 118/84 93 I/O 12/01/16 12/01/16 12/01/16 12/02/16 12/02/16 12/02/16 07:00 15:00 23:00 07:00 15:00 23:00 Intake Total 60 ml 480 ml 240 ml 120 ml Output Total 425 ml 300 ml 500 ml 200 ml Balance -365 ml 180 ml -260 ml -80 ml Intake Oral 60 ml 480 ml 240 ml 120 ml Output Urine Total 425 ml 300 ml 500 ml 200 ml # Bowel Movements 3 4 1 Result Diagram: 12/02/16 0456 12/02/16 0456 Imaging Last Impressions Chest X-Ray 11/28/16 0000 Signed Impressions: Service Date/Time: Monday, November 28, 2016 11:38 - CONCLUSION: Stable small right pleural effusion with associative volume loss and/or consolidation. Trace left pleural effusion with airspace consolidation in the left lower lung zone. Sy Whitehead MD Chest CT 11/12/16 0000 Signed Impressions: Service Date/Time: Saturday, November 12, 2016 11:23 - CONCLUSION: 1. Bilateral pleural effusions left greater than right. Bilateral dependent parenchymal lung opacity indicating atelectasis. 2. Decrease in size of right hilar and mediastinal mass/enlarged lymph nodes. Prashant Valdez MD Procedures Thoracentesis, Pigtail, Chest tube placement. Other Results Laboratory Tests Test 11/29/16 11/29/16 11/30/16 12/01/16 11:03 17:43 06:38 00:09 Hypersegmented Polys 1+ Hematology Comments Antibody Screen NEGATIVE Lymphocytes % 1 % Blood Type B NEGATIVE Crossmatch Leukocyte-Reduced Red Blood Cells Blood Bank Comment Test 12/01/16 12/02/16 18:15 04:56 Metamyelocytes 1 % Ovalocytes 1+ Acanthocytes OCC Prothrombin Time 12.0 SEC Prothromb Time International 1.1 RATIO Ratio Activated Partial 31.7 SEC Thromboplast Time Fibrinogen 415 mg/dL White Blood Count 30.3 TH/MM3 Red Blood Count 3.20 MIL/MM3 Hemoglobin 9.1 GM/DL Hematocrit 27.4 % Mean Corpuscular Volume 85.7 FL Mean Corpuscular Hemoglobin 28.4 PG Mean Corpuscular Hemoglobin 33.2 % Concent Red Cell Distribution Width 20.0 % Platelet Count 143 TH/MM3 Mean Platelet Volume 7.2 FL Neutrophils (%) (Auto) 95.1 % Lymphocytes (%) (Auto) 0.9 % Monocytes (%) (Auto) 3.9 % Eosinophils (%) (Auto) 0.0 % Basophils (%) (Auto) 0.1 % Neutrophils # (Auto) 28.8 TH/MM3 Lymphocytes # (Auto) 0.3 TH/MM3 Monocytes # (Auto) 1.2 TH/MM3 Eosinophils # (Auto) 0.0 TH/MM3 Basophils # (Auto) 0.0 TH/MM3 CBC Comment AUTO DIFF Differential Total Cells 100 Counted Neutrophils % (Manual) 94 % Band Neutrophils % 4 % Monocytes % 2 % Neutrophils # (Manual) 29.7 TH/MM3 Differential Comment FINAL DIFF MANUAL Toxic Granulation 1+ Platelet Estimate LOW Platelet Morphology Comment NORMAL [place] Cells 1+ Sodium Level 138 MEQ/L Potassium Level 3.8 MEQ/L Chloride Level 106 MEQ/L Carbon Dioxide Level 19.9 MEQ/L Anion Gap 12 MEQ/L Blood Urea Nitrogen 8 MG/DL Creatinine 0.25 MG/DL Estimat Glomerular Filtration 369 ML/MIN Rate Random Glucose 65 MG/DL Calcium Level 7.1 MG/DL Protein Corrected Calcium 8.8 MG/DL Phosphorus Level 2.1 MG/DL Magnesium Level 1.2 MG/DL Total Bilirubin 0.4 MG/DL Aspartate Amino Transf 8 U/L (AST/SGOT) Alanine Aminotransferase 7 U/L (ALT/SGPT) Alkaline Phosphatase 78 U/L Total Protein 4.1 GM/DL Albumin 1.4 GM/DL Objective Remarks GENERAL: Patient is lying in be din NAD SKIN: Warm and dry. HEAD: Normocephalic. EYES: No scleral icterus. No injection or drainage. NECK: Supple, trachea midline. No JVD or lymphadenopathy. CARDIOVASCULAR: Regular rate and rhythm without murmurs, gallops, or rubs. RESPIRATORY: Breath sounds equal bilaterally. No accessory muscle use. GASTROINTESTINAL: Abdomen soft, non-tender, nondistended. MUSCULOSKELETAL: No cyanosis, or edema. BACK: Nontender without obvious deformity. No CVA tenderness. Neuro: Awake and alert Medications and IVs Current Medications Medications (Trade) Dose Ordered Sig/Elvia Route Start Time Stop Time Status Last Admin (NS Flush) 2 ml UNSCH PRN IV FLUSH 11/12/16 11:00 11/19/16 09:00 (NS Flush) 2 ml BID IV FLUSH 11/12/16 21:00 12/02/16 09:33 (Tylenol) 650 mg Q6H PRN PO 11/12/16 12:00 12/02/16 14:59 (Protonix Inj) 40 mg DAILY IV 11/13/16 09:00 12/02/16 09:35 (Spiriva Inh) 18 mcg DAILY INH 11/13/16 09:00 12/02/16 09:00 Clopidogrel Bisulfate 75 mg 75 mg DAILY PO 11/13/16 09:00 12/02/16 09:35 (Levophed-Dextrose Drip) 250 ml @ 0 mls/hr TITRATE IV 11/12/16 13:30 11/12/16 18:48 Miscellaneous Information Patient in critical care unit? Ass... Q361D XX 11/12/16 18:30 11/12/16 18:30 (D50w (Vial) Inj) 25 ml UNSCH PRN IV PUSH 11/13/16 10:15 11/30/16 10:03 Glucagon 1 mg 1 mg UNSCH PRN OTHER 11/13/16 10:15 (Neosynephrine Inj/D5W 500 ml Inj) 500 ml @ 0 mls/hr TITRATE IV 11/14/16 17:15 11/15/16 12:54 (Brethine Inj) 1 mg UNSCH PRN SQ 11/14/16 16:15 (Restoril) 7.5 mg HS PRN PO 11/15/16 22:45 12/01/16 22:27 Aspirin 81 mg 81 mg DAILY PO 11/16/16 09:00 12/02/16 09:35 (Pitressin Inj/ D5W 100 ml Inj) 100 ml @ 0 mls/hr Q0M IV 11/18/16 14:45 11/18/16 14:59 (Lovenox Inj) 60 mg Q12H SQ 11/20/16 16:00 12/02/16 14:59 (Pill Splitter) 1 ea UNSCH PRN OTHER 11/21/16 11:00 (Lopressor) 25 mg Q12HR PO 11/22/16 21:00 12/02/16 09:35 (Cordarone) 200 mg DAILY PO 11/23/16 09:00 12/02/16 09:35 (Vasotec) 5 mg DAILY PO 11/26/16 09:00 12/02/16 09:35 (Mag-Ox) 400 mg Q12HR PO 11/26/16 21:00 12/02/16 09:34 (Deltasone) 5 mg DAILY PO 11/30/16 09:00 12/02/16 09:34 (Morphine Inj) 2 mg Q3H PRN IV PUSH 11/30/16 00:45 12/02/16 01:59 (Levaquin) 500 mg Q24H PO 11/30/16 20:00 12/01/16 20:33 A/P Assessment and Plan 1. Acute Metabolic Encephalopathy Resolved. 2. Respiratory Insufficiency/Bilateral Pleural Effusion/Possible HCAP/COPD/ Adenocarcinoma of the lung/History of PE continue to keep oxygen saturation over 92%, Bronchodilator, Mucolytic, incentive spirometry, Steroids. Status post Chest tube placement 11/12 Exudate effusion per LDH criteria, removed 11/19/16 Cytology negative for malignancy, Status post right thoracentesis with 1.2 L fluid removed, Transudate status post Pigtail catheter drainage of Lower pleural effusion, 11/18/16. Removed Chest tube. as per ID okay to discharge on Levaquin for seven days. 3. Acute on chronic systolic heart failure, Ischemic cardiomyopathy, Atrial Fibrillation with RVR. 4. Hypotension/CAD/status post STEMI 07/08/16 with PCI/DELMY to D1, on Amiodarone 400 mg daily and Metoprolol 12.5 mg BID. EF 30-35% Continue Plavix. 5. Diarrhea/History of C Diff Colitis. On Protonix as per Medical Technologist Generalist. Improving diarrhea. 6. Staph aureus Bacteremia/Severe Sepsis with worsening Leukocytosis, UTI/ Possible HCAP, History of C Diff Colitis ID following, he was on Vancomycin, Cefepime, Micafungin, Flagyl by mouth at this time, continue on Ceftriaxone with Diagnosis of MSSA Bacteremia, BC negative, Pneumonia with effusions, Proteus UTI Catheter related. Urine Proteus Mirabilis Staph species. Prior C diff. and persistent Leukocytosis. 7. Non Small cell lung cancer of Right mainstem bronchus diagnosed with bulky mediastinal disease plus compression of his bronchus, improvement after chemotherapy and radiation therapy, on Lovenox 60 mg BID for atrial fibrillation 8. History of Stroke x 2 with left sided residual weakness. 9. Pulmonary Emboli 10. PAD status post revascularization of the lower extremities. 11. CAD status post AR, status post Cardiac Catheterization with PCI and drug eluting stent. History of coronary artery disease/AR, status post cardiac catheterization with PCI and drug eluding stent. 12. Electrolyte derangement Hypophosphatemia and Hypomagnesemia replaced and following. Bilateral lower extremity SCDs. On Lovenox 60 mg subcutaneous every 12, IV Protonix Following recommendations by PT/OT. Discussed with patient and nurse in the room. Discharge Planning cleared for discharge by ID specialist on Levaquin Okay to discharge tomorrow by audio specialist. Chaka Larson MD Dec 02, 2016 15:54
[2016-12-02] MEDS: MAGNESIUM SULFATE 1 GM PREMIX 100 ML IV SCH ×2 (16:42→18:28)
[2016-12-02] MEDS: LEVOFLOXACIN 500 MG TAB PO SCH (19:39)
[2016-12-02] MEDS: TEMAZEPAM 7.5 MG CAP PO PRN (21:35)
[2016-12-03] VITALS (7 sets, daily range): BP systolic 94–115; BP diastolic 50–70; PULSE 78–103; RESP 18–20; TEMP 96.6–98; O2SAT 93–94
[2016-12-03] MEDS: MORPHINE SULFATE 4 MG/ML INJ IV PUSH PRN (02:06)
[2016-12-03] MEDS: ENOXAPARIN SODIUM 60 MG/0.6 ML SYRINGE SQ SCH ×2 (04:03→14:51)
[2016-12-03 07:11] LABS: BICARBONATE 22.2 MEQ/L (21.0-32.0); MAGNESIUM 1.6 MG/DL (1.5-2.5); POTASSIUM 3.7 MEQ/L (3.5-5.1)
[2016-12-03 07:24] LABS: CALCIUM-PROTEIN CORRECTED 8.8 MG/DL (8.5-10.1)
[2016-12-03] MEDS: AMIODARONE 200 MG TAB PO SCH (08:55)
[2016-12-03] MEDS: METOPROLOL TARTRATE 25 MG TAB PO SCH ×2 (08:56→20:29)
[2016-12-03] MEDS: ASPIRIN EC 81 MG TABEC PO SCH (08:56)
[2016-12-03] MEDS: ENALAPRIL MALEATE 5 MG TAB PO SCH (08:56)
[2016-12-03] MEDS: CLOPIDOGREL 75 MG TAB PO SCH (08:56)
[2016-12-03] MEDS: predniSONE 5 MG TAB PO SCH (08:56)
--- NOTE | 2016-12-03 08:56 | HHI.PR ---
Subjective Remarks This is a 64-year-old male with history of COPD, hypertension, coronary artery disease, STEMI on 07/08/16 s/p PCI and DELMY (Dr. Crouch), history of C. difficile colitis, non-small cell lung cancer receiving chemoradiation per Dr. Monteiro, history of pulmonary embolism on Lovenox who was admitted to hospital recently from 07/08-08/31/16 with above diagnoses. noted Mediastinal and Lung mass, as Non Small Cell Lung Cancer(Adenocarcinoma), status post Bronchoscopy. Brought from jail with fever, Hypotension, Encephalopathy, Septic, UTI, HCAP, ID specialist following, was in Intensive Care Unit received Zosyn in ER and given Cefepime and Flagyl by technical customer support specialist and Vancomycin. Electronics Engineering Professor Notes. 11/13 Patient is on 35% VM, afebrile. Off Levophed 11/14 Patient was started on Cardizem drip 15mg/hr overnight in addition was given Lopressor 2.5mg IV x1 for tachycardia. Afebrile. On Heparin drip. s/p transfusion 1u PRBC for Hgb 6.9 now 8.1. 11/15 Patient is on Neosyn 40 mics, off vasopressin. He was given Amiodarone bolus overnight for Afib with RVR HR remains 120-130's. Afebrile. 11/16: Remains on Cardizem and amiodarone. Off vasopressors. Patient's CXR appears worse. He does not appear in distress. Palliative care consulted and family and patient will decide on hospice after d/w Dr. Monteiro 11/17: Bedside ultrasound shows fairly large left pleural effusion despite chest tube. Possibly loculated. We'll hold off thoracentesis to additional chest tube and the patient makes decisions about comfort measures versus aggressive care. Patient waiting to talk to Dr. Monteiro to decide on hospice 11/18: Patient declined hospice and wants to continue aggressive care at this time. White count has increased to 48.9 with 97% neutrophils, I have requested ID reevaluation. Large right pleural effusion drained today 1.2 L clear fluid. UO 4L in 24 hours 11/19/16: Patient had right thoracentesis yesterday 11/18 with 1.2 L pleural fluid removed. A new left pigtail chest tube was placed also yesterday 11/18 with 580 mL of slightly blood-tinged pleural fluid removal over 24 hours. Patient now on nasal cannula tolerating well. Left 32 Latvian chest tube was removed today 11/20: Breathing more comfortably now. Large bore chest tube removed yesterday. No pneumothorax. WBC count slightly improved from 45.5 to 42.5 11/21 No acute events overnight. Patient is lying in bed in NAD. Afebrile. WBC 43 11/22 Patient is on 2L oxygen with good sats. Afebrile. WBC 39 today from 43. Awake and alert. 11/23 No acute events overnight. WBC trending down 36 today. Afebrile. 11/24 patient transferred to Hospitalist team for today. as per Infectious Disease specialist MSSA Bacteremia, MSSA in Urine, Pneumonia with Effusions, Proteus UTI, Prior history of Diarrhea, Discontinued Vancomycin, Discontinued Micafungin continued Cefepime and Flagyl by mouth, check C Diff PCR. 11/25 Patient stable in his bedroom, discussed with nurse Mr. Moreno replacing Phosphorus level. 11/26 Patient stable in his bedroom no nausea, vomit or diarrhea, discussed with patient and his . and nurse 11/27 Seen in the room in the presence of his , unable to continue further management for his Cancer due to multiple comorbidities, pheresis specialist recommends to keep Hemoglobin over 8 , continue Lovenox, CAD Cardiology following, to continue supportive care, as per ID specialist MSSA Bacteremia, BC negative, Pneumonia with effusions Proteus UTI catheter related, Prior C Diff, Persistent Leukocytosis, recommended to continue Rocephin 11/28 Seen in his bedroom in the presence of nurse Miss Hart, continue present care, no complaint of Nausea, vomit or diarrhea multiple generalized Ecchymosis. 11/29 Patient seen in his bedroom Continue Rocephin as per ID specialist, No further treatment for his Lung cancer as per franchise specialist will be able to discharge during the next 24 to 48 hours. 11/30 No changes to anterior assessment. 12/01 stable as per Oncology not able to give more treatment due to comorbidities. stable in his bedroom. 12/02 Seen and discussed with nurse Miss Crooks, he is stable in his bedroom no complaint, no Nausea, vomit or diarrhea. 12/03 Discussed with patient and his they accept to talk about Hospice and May go to SNF with Hospice. asked for consult and placed for Discharge when arrangements performed. Objective Vital Signs Date Time Temp Pulse Resp B/P Pulse Ox O2 Delivery O2 Flow Rate FiO2 12/03/16 04:00 96.6 85 20 108/68 93 12/03/16 00:00 97.8 81 20 115/67 94 12/02/16 20:06 94 12/02/16 20:00 98.1 95 19 136/81 93 12/02/16 15:50 97.9 90 20 138/85 97 12/02/16 15:45 98 12/02/16 11:50 97.9 82 20 120/76 93 I/O 12/02/16 12/02/16 12/02/16 12/03/16 12/03/16 12/03/16 07:00 15:00 23:00 07:00 15:00 23:00 Intake Total 120 ml 300 ml 590 ml 120 ml Output Total 200 ml 400 ml 450 ml 200 ml Balance -80 ml -100 ml 140 ml -80 ml Intake Oral 120 ml 300 ml 240 ml 120 ml IV Total 350 ml Output Urine Total 200 ml 400 ml 450 ml 200 ml # Bowel Movements 1 0 Result Diagram: 12/02/16 0456 12/03/16 0528 Imaging Last Impressions Chest X-Ray 11/28/16 0000 Signed Impressions: Service Date/Time: Monday, November 28, 2016 11:38 - CONCLUSION: Stable small right pleural effusion with associative volume loss and/or consolidation. Trace left pleural effusion with airspace consolidation in the left lower lung zone. Sy Whitehead MD Chest CT 11/12/16 0000 Signed Impressions: Service Date/Time: Saturday, November 12, 2016 11:23 - CONCLUSION: 1. Bilateral pleural effusions left greater than right. Bilateral dependent parenchymal lung opacity indicating atelectasis. 2. Decrease in size of right hilar and mediastinal mass/enlarged lymph nodes. Prashant Valdez MD Procedures Thoracentesis, Pigtail, Chest tube placement. Other Results Laboratory Tests Test 11/29/16 11/29/16 11/30/16 12/01/16 11:03 17:43 06:38 00:09 Hypersegmented Polys 1+ Hematology Comments Antibody Screen NEGATIVE Lymphocytes % 1 % Blood Type B NEGATIVE Crossmatch Leukocyte-Reduced Red Blood Cells Blood Bank Comment Test 12/01/16 12/02/16 12/03/16 18:15 04:56 05:28 Metamyelocytes 1 % Ovalocytes 1+ Acanthocytes OCC Prothrombin Time 12.0 SEC Prothromb Time International 1.1 RATIO Ratio Activated Partial 31.7 SEC Thromboplast Time Fibrinogen 415 mg/dL White Blood Count 30.3 TH/MM3 Red Blood Count 3.20 MIL/MM3 Hemoglobin 9.1 GM/DL Hematocrit 27.4 % Mean Corpuscular Volume 85.7 FL Mean Corpuscular Hemoglobin 28.4 PG Mean Corpuscular Hemoglobin 33.2 % Concent Red Cell Distribution Width 20.0 % Platelet Count 143 TH/MM3 Mean Platelet Volume 7.2 FL Neutrophils (%) (Auto) 95.1 % Lymphocytes (%) (Auto) 0.9 % Monocytes (%) (Auto) 3.9 % Eosinophils (%) (Auto) 0.0 % Basophils (%) (Auto) 0.1 % Neutrophils # (Auto) 28.8 TH/MM3 Lymphocytes # (Auto) 0.3 TH/MM3 Monocytes # (Auto) 1.2 TH/MM3 Eosinophils # (Auto) 0.0 TH/MM3 Basophils # (Auto) 0.0 TH/MM3 CBC Comment AUTO DIFF Differential Total Cells 100 Counted Neutrophils % (Manual) 94 % Band Neutrophils % 4 % Monocytes % 2 % Neutrophils # (Manual) 29.7 TH/MM3 Differential Comment FINAL DIFF MANUAL Toxic Granulation 1+ Platelet Estimate LOW Platelet Morphology Comment NORMAL Orange Cells 1+ Total Bilirubin 0.4 MG/DL Aspartate Amino Transf 8 U/L (AST/SGOT) Alanine Aminotransferase 7 U/L (ALT/SGPT) Alkaline Phosphatase 78 U/L Albumin 1.4 GM/DL Sodium Level 135 MEQ/L Potassium Level 3.7 MEQ/L Chloride Level 102 MEQ/L Carbon Dioxide Level 22.2 MEQ/L Anion Gap 11 MEQ/L Blood Urea Nitrogen 7 MG/DL Creatinine 0.20 MG/DL Estimat Glomerular Filtration 477 ML/MIN Rate Random Glucose 74 MG/DL Calcium Level 7.1 MG/DL Protein Corrected Calcium 8.8 MG/DL Phosphorus Level 1.9 MG/DL Magnesium Level 1.6 MG/DL Total Protein 4.1 GM/DL Objective Remarks GENERAL: Patient is lying in be din NAD SKIN: Warm and dry. HEAD: Normocephalic. EYES: No scleral icterus. No injection or drainage. NECK: Supple, trachea midline. No JVD or lymphadenopathy. CARDIOVASCULAR: Regular rate and rhythm without murmurs, gallops, or rubs. RESPIRATORY: Breath sounds equal bilaterally. No accessory muscle use. GASTROINTESTINAL: Abdomen soft, non-tender, nondistended. MUSCULOSKELETAL: No cyanosis, or edema. BACK: Nontender without obvious deformity. No CVA tenderness. Neuro: Awake and alert Medications and IVs Current Medications Medications (Trade) Dose Ordered Sig/Elvia Route Start Time Stop Time Status Last Admin (NS Flush) 2 ml UNSCH PRN IV FLUSH 11/12/16 11:00 11/19/16 09:00 (NS Flush) 2 ml BID IV FLUSH 11/12/16 21:00 12/02/16 09:33 (Tylenol) 650 mg Q6H PRN PO 11/12/16 12:00 12/02/16 14:59 (Protonix Inj) 40 mg DAILY IV 11/13/16 09:00 12/02/16 09:35 (Spiriva Inh) 18 mcg DAILY INH 11/13/16 09:00 12/02/16 09:00 Clopidogrel Bisulfate 75 mg 75 mg DAILY PO 11/13/16 09:00 12/02/16 09:35 (Levophed-Dextrose Drip) 250 ml @ 0 mls/hr TITRATE IV 11/12/16 13:30 11/12/16 18:48 Miscellaneous Information Patient in critical care unit? Ass... Q361D XX 11/12/16 18:30 11/12/16 18:30 (D50w (Vial) Inj) 25 ml UNSCH PRN IV PUSH 11/13/16 10:15 11/30/16 10:03 Glucagon 1 mg 1 mg UNSCH PRN OTHER 11/13/16 10:15 (Neosynephrine Inj/D5W 500 ml Inj) 500 ml @ 0 mls/hr TITRATE IV 11/14/16 17:15 11/15/16 12:54 (Brethine Inj) 1 mg UNSCH PRN SQ 11/14/16 16:15 (Restoril) 7.5 mg HS PRN PO 11/15/16 22:45 12/02/16 21:35 Aspirin 81 mg 81 mg DAILY PO 11/16/16 09:00 12/02/16 09:35 (Pitressin Inj/ D5W 100 ml Inj) 100 ml @ 0 mls/hr Q0M IV 11/18/16 14:45 11/18/16 14:59 (Lovenox Inj) 60 mg Q12H SQ 11/20/16 16:00 12/03/16 04:03 (Pill Splitter) 1 ea UNSCH PRN OTHER 11/21/16 11:00 (Lopressor) 25 mg Q12HR PO 11/22/16 21:00 12/02/16 19:39 (Cordarone) 200 mg DAILY PO 11/23/16 09:00 12/02/16 09:35 (Vasotec) 5 mg DAILY PO 11/26/16 09:00 12/02/16 09:35 (Mag-Ox) 400 mg Q12HR PO 11/26/16 21:00 12/02/16 19:39 (Deltasone) 5 mg DAILY PO 11/30/16 09:00 12/02/16 09:34 (Morphine Inj) 2 mg Q3H PRN IV PUSH 11/30/16 00:45 12/03/16 02:06 (Levaquin) 500 mg Q24H PO 11/30/16 20:00 12/02/16 19:39 A/P Assessment and Plan 1. Acute Metabolic Encephalopathy Resolved. 2. Respiratory Insufficiency/Bilateral Pleural Effusion/Possible HCAP/COPD/ Adenocarcinoma of the lung/History of PE continue to keep oxygen saturation over 92%, Bronchodilator, Mucolytic, incentive spirometry, Steroids. Status post Chest tube placement 11/12 Exudate effusion per LDH criteria, removed 11/19/16 Cytology negative for malignancy, Status post right thoracentesis with 1.2 L fluid removed, Transudate status post Pigtail catheter drainage of Lower pleural effusion, 11/18/16. Removed Chest tube. as per ID okay to discharge on Levaquin for seven days. 3. Acute on chronic systolic heart failure, Ischemic cardiomyopathy, Atrial Fibrillation with RVR. 4. Hypotension/CAD/status post STEMI 07/08/16 with PCI/DELMY to D1, on Amiodarone 400 mg daily and Metoprolol 12.5 mg BID. EF 30-35% Continue Plavix. 5. Diarrhea/History of C Diff Colitis. On Protonix as per Practice Management Consultant. Improving diarrhea. 6. Staph aureus Bacteremia/Severe Sepsis with worsening Leukocytosis, UTI/ Possible HCAP, History of C Diff Colitis ID following, he was on Vancomycin, Cefepime, Micafungin, Flagyl by mouth at this time, continue on Ceftriaxone with Diagnosis of MSSA Bacteremia, BC negative, Pneumonia with effusions, Proteus UTI Catheter related. Urine Proteus Mirabilis Staph species. Prior C diff. and persistent Leukocytosis. 7. Non Small cell lung cancer of Right mainstem bronchus diagnosed with bulky mediastinal disease plus compression of his bronchus, improvement after chemotherapy and radiation therapy, on Lovenox 60 mg BID for atrial fibrillation 8. History of Stroke x 2 with left sided residual weakness. 9. Pulmonary Emboli on Lovenox 60 mg BID. 10. PAD status post revascularization of the lower extremities. 11. CAD status post LA, status post Cardiac Catheterization with PCI and drug eluting stent. History of coronary artery disease/LA, status post cardiac catheterization with PCI and drug eluding stent. 12. Electrolyte derangement Hypophosphatemia and Hypomagnesemia replaced and following. Bilateral lower extremity SCDs. On Lovenox 60 mg subcutaneous every 12, IV Protonix Following recommendations by PT/OT. Discussed with patient and nurse in the room. and his . more than 30 minutes discussed the case Discharge Planning cleared for discharge by ID specialist on Levaquin Okay to discharge by franchise specialist. Discharge to SNF on Hospice. Chaka Larson MD Dec 03, 2016 08:56
[2016-12-03] MEDS: PANTOPRAZOLE SODIUM 40 MG VIAL IV SCH (08:57)
[2016-12-03] MEDS: SODIUM CHLORIDE 0.9% FLUSH 5 ML FLUSH IV FLUSH SCH ×2 (08:57→20:29)
[2016-12-03] MEDS ORDERED: POTASSIUM PHOSPHATE INJ 21 MMOL in SODIUM CHLORIDE 0.9% INJ 150 ML IV ONE (09:00)
[2016-12-03] MEDS: MAGNESIUM SULFATE 1 GM PREMIX 100 ML IV SCH ×2 (09:00→14:49)
[2016-12-03] MEDS: TIOTROPIUM BROMIDE 18 MCG INH INH SCH (09:00)
[2016-12-03] MEDS ORDERED: LEVA500T PO (09:08)
[2016-12-03] MEDS ORDERED: PRED5TAB PO (09:08)
[2016-12-03] MEDS ORDERED: ENAL5TAB PO (09:08)
[2016-12-03] MEDS ORDERED: METO25TA3 PO (09:08)
[2016-12-03] MEDS ORDERED: AMIO200T PO (09:08)
[2016-12-03] MEDS ORDERED: MAGN400T3 PO (09:08)
[2016-12-03] MEDS ORDERED: ENOX60P SQ (09:08)
[2016-12-03] MEDS ORDERED: ASPI81TA11 PO (09:08)
[2016-12-03] MEDS ORDERED: TEMA7.5C9 PO (09:08)
[2016-12-03] MEDS ORDERED: HYDR-3533 PO (09:42)
[2016-12-03 11:32] LABS: HEMATOCRIT 27.4 % (39.0-51.0); MEAN CORPUSCULAR HEMOGLOBIN 28.4 PG (27.0-34.0); PLATELET COUNT 136 TH/MM3 (150-450); RED BLOOD COUNT 3.19 MIL/MM3 (4.50-5.90); RED CELL DISTRIBUTION WIDTH 20.1 % (11.6-17.2); WHITE BLOOD COUNT 30.7 TH/MM3 (4.0-11.0)
[2016-12-03 11:34] LABS: HEMO FLAGS AUTO DIFF
[2016-12-03 12:04] LABS: BANDS 10 % (0-6); NEUTROPHIL # MANUAL DIFF 28.2 TH/MM3 (1.8-7.7); OVALOCYTES 1+ (NORMAL); PLATELET ESTIMATE SMEAR LOW (NORMAL); PLATELET MORPHOLOGY NORMAL (NORMAL); POLYS (SEG NEUTROPHILS) 82 % (16-70); SCAN/DIFF FINAL DIFF MANUAL; WBC DIFF SAMPLE 100
[2016-12-03 12:05] LABS: TOXIC GRANULATION 1+ (NORMAL); TOXIC VACUOLATION PRESENT (NONE SEEN)
[2016-12-03] MEDS: RESP: ALBUTEROL 1.25 MG/3 ML NEB (PRN) NEB ×2 (13:25→16:13)
--- NOTE | 2016-12-03 14:18 | HHI.DS ---
Discharge Summary Admission Date Nov 12, 2016 at 11:12 Discharge Date: Dec 03, 2016 Admitting Diagnosis (1) Septic shock ICD Code: A41.9 Diagnosis: Principal (2) UTI (urinary tract infection) ICD Code: N39.0 Diagnosis: Principal (3) Acute encephalopathy ICD Code: G93.40 Diagnosis: Principal (4) HCAP (healthcare-associated pneumonia) ICD Code: J18.9 Diagnosis: Principal (5) Anemia ICD Code: D64.9 Diagnosis: Principal (6) STEMI (ST elevation myocardial infarction) ICD Code: I21.3 Diagnosis: Secondary (7) Afib ICD Code: I48.91 Diagnosis: Secondary (8) Pulmonary embolism ICD Code: I26.99 Diagnosis: Secondary (9) Non-small cell lung cancer (NSCLC) ICD Code: C34.90 Diagnosis: Secondary (10) COPD (chronic obstructive pulmonary disease) ICD Code: J44.9 Diagnosis: Secondary Procedures Thoracentesis, Pigtail, Chest tube placement. Brief History - From Admission This is a 64-year-old male with history of COPD, hypertension, coronary artery disease, STEMI on 07/08/16 s/p PCI and DELMY (Dr. Crouch), history of C. difficile colitis, non-small cell lung cancer receiving chemoradiation per Dr. Monteiro, history of pulmonary embolism on Lovenox who was admitted to hospital recently from 07/08-08/31/16 with above diagnoses. During that admission he was noted to have a mediastinal and lung mass which was invading bilateral mainstem bronchi- subsequently diagnosed as a non-small cell lung cancer(adenocarcinoma). He had complete atelectasis of the right lung last admission which required bronchoscopy 2. With chemoradiation obstruction improved with resolution of atelectasis. Today patient was brought from the intermediate for fever, hypotension, confusion. Apparently patient was to be started on antibiotics for a UTI however prior to starting the antibiotics, he was found to be profoundly hypotensive, confused and was sent to ER. The patient also was noted to have diarrhea. His initial systolic blood pressure was in the 70s, rectal temperature of 100.4 and also tachycardic with a heart rate in 100's. Source of infection seems to be UTI, though HCAP cannot be ruled out. X-ray and CT of the chest shows bilateral pleural effusions left larger than right associated with infiltrate/atelectasis. He has multiple skin ulcers including his sacral area and his bilateral ankles. Patient received 3 L normal saline bolus with improvement in blood pressure. Levophed ordered. I have started patient on stress dose steroids as he was receiving prednisone at the intermediate . Patient received Zosyn in the ED. I will place patient on cefepime, Flagyl (hx of C Diff) and IV vancomycin. Infectious disease consulted for septic shock in an immunocompromised patient. CBC/BMP: 12/03/16 1113 12/03/16 0528 Significant Findings Laboratory Tests Test 12/01/16 12/02/16 12/03/16 12/03/16 18:15 04:56 05:28 11:13 White Blood Count 39.9 TH/MM3 30.3 TH/MM3 30.7 TH/MM3 (4.0-11.0) (4.0-11.0) (4.0-11.0) Red Blood Count 3.65 MIL/MM3 3.20 MIL/MM3 3.19 MIL/MM3 (4.50-5.90) (4.50-5.90) (4.50-5.90) Hemoglobin 10.3 GM/DL 9.1 GM/DL 9.0 GM/DL (13.0-17.0) (13.0-17.0) (13.0-17.0) Hematocrit 31.5 % 27.4 % 27.4 % (39.0-51.0) (39.0-51.0) (39.0-51.0) Red Cell Distribution Width 19.5 % 20.0 % 20.1 % (11.6-17.2) (11.6-17.2) (11.6-17.2) Mean Platelet Volume 6.9 FL (7.0-11.0) Neutrophils % (Manual) 95 % (16-70) 94 % (16-70) 82 % (16-70) Neutrophils # (Manual) 38.3 TH/MM3 29.7 TH/MM3 28.2 TH/MM3 (1.8-7.7) (1.8-7.7) (1.8-7.7) Ovalocytes 1+ (NORMAL) 1+ (NORMAL) Prothrombin Time 12.0 SEC (9.8-11.6) Activated Partial 31.7 SEC Thromboplast Time (24.3-30.1) Fibrinogen 415 mg/dL (227-377) Platelet Count 143 TH/MM3 136 TH/MM3 (150-450) (150-450) Neutrophils (%) (Auto) 95.1 % (16.0-70.0) Lymphocytes (%) (Auto) 0.9 % (9.0-44.0) Neutrophils # (Auto) 28.8 TH/MM3 (1.8-7.7) Lymphocytes # (Auto) 0.3 TH/MM3 (1.0-4.8) Monocytes # (Auto) 1.2 TH/MM3 (0-0.9) Toxic Granulation 1+ (NORMAL) 1+ (NORMAL) Platelet Estimate LOW (NORMAL) LOW (NORMAL) Yulissa Cells 1+ (NORMAL) Carbon Dioxide Level 19.9 MEQ/L (21.0-32.0) Creatinine 0.25 MG/DL 0.20 MG/DL (0.60-1.30) (0.60-1.30) Random Glucose 65 MG/DL (74-106) Calcium Level 7.1 MG/DL 7.1 MG/DL (8.5-10.1) (8.5-10.1) Phosphorus Level 2.1 MG/DL 1.9 MG/DL (2.5-4.9) (2.5-4.9) Magnesium Level 1.2 MG/DL (1.5-2.5) Aspartate Amino Transf 8 U/L (15-37) (AST/SGOT) Alanine Aminotransferase 7 U/L (12-78) (ALT/SGPT) Total Protein 4.1 GM/DL 4.1 GM/DL (6.4-8.2) (6.4-8.2) Albumin 1.4 GM/DL (3.4-5.0) Sodium Level 135 MEQ/L (136-145) Band Neutrophils % 10 % (0-6) Lymphocytes % 4 % (9-44) Toxic Vacuolation PRESENT (NONE SEEN) Imaging Last Impressions Chest X-Ray 11/28/16 0000 Signed Impressions: Service Date/Time: Monday, November 28, 2016 11:38 - CONCLUSION: Stable small right pleural effusion with associative volume loss and/or consolidation. Trace left pleural effusion with airspace consolidation in the left lower lung zone. Sy Whitehead MD Chest CT 11/12/16 0000 Signed Impressions: Service Date/Time: Saturday, November 12, 2016 11:23 - CONCLUSION: 1. Bilateral pleural effusions left greater than right. Bilateral dependent parenchymal lung opacity indicating atelectasis. 2. Decrease in size of right hilar and mediastinal mass/enlarged lymph nodes. Prashant Valdez MD PE at Discharge GENERAL: Patient is lying in be din NAD SKIN: Warm and dry. HEAD: Normocephalic. EYES: No scleral icterus. No injection or drainage. NECK: Supple, trachea midline. No JVD or lymphadenopathy. CARDIOVASCULAR: Regular rate and rhythm without murmurs, gallops, or rubs. RESPIRATORY: Breath sounds equal bilaterally. No accessory muscle use. GASTROINTESTINAL: Abdomen soft, non-tender, nondistended. MUSCULOSKELETAL: No cyanosis, or edema. BACK: Nontender without obvious deformity. No CVA tenderness. Neuro: Awake and alert Hospital Course This is a 64-year-old male with history of COPD, hypertension, coronary artery disease, STEMI on 07/08/16 s/p PCI and DELMY (Dr. Crouch), history of C. difficile colitis, non-small cell lung cancer receiving chemoradiation per Dr. Monteiro, history of pulmonary embolism on Lovenox who was admitted to hospital recently from 07/08-08/31/16 with above diagnoses. noted Mediastinal and Lung mass, as Non Small Cell Lung Cancer(Adenocarcinoma), status post Bronchoscopy. [facility] with fever, Hypotension, Encephalopathy, Septic, UTI, HCAP, ID specialist following, was in Intensive Care Unit received Zosyn in ER and given Cefepime and Flagyl by international specialist and Vancomycin. Line Cleaner Notes. 11/13 Patient is on 35% VM, afebrile. Off Levophed 11/14 Patient was started on Cardizem drip 15mg/hr overnight in addition was given Lopressor 2.5mg IV x1 for tachycardia. Afebrile. On Heparin drip. s/p transfusion 1u PRBC for Hgb 6.9 now 8.1. 11/15 Patient is on Neosyn 40 mics, off vasopressin. He was given Amiodarone bolus overnight for Afib with RVR HR remains 120-130's. Afebrile. 11/16: Remains on Cardizem and amiodarone. Off vasopressors. Patient's CXR appears worse. He does not appear in distress. Palliative care consulted and family and patient will decide on hospice after d/w Dr. Monteiro 11/17: Bedside ultrasound shows fairly large left pleural effusion despite chest tube. Possibly loculated. We'll hold off thoracentesis to additional chest tube and the patient makes decisions about comfort measures versus aggressive care. Patient waiting to talk to Dr. Monteiro to decide on hospice 11/18: Patient declined hospice and wants to continue aggressive care at this time. White count has increased to 48.9 with 97% neutrophils, I have requested ID reevaluation. Large right pleural effusion drained today 1.2 L clear fluid. UO 4L in 24 hours 11/19/16: Patient had right thoracentesis yesterday 11/18 with 1.2 L pleural fluid removed. A new left pigtail chest tube was placed also yesterday 11/18 with 580 mL of slightly blood-tinged pleural fluid removal over 24 hours. Patient now on nasal cannula tolerating well. Left 32 Swedish chest tube was removed today 11/20: Breathing more comfortably now. Large bore chest tube removed yesterday. No pneumothorax. WBC count slightly improved from 45.5 to 42.5 11/21 No acute events overnight. Patient is lying in bed in NAD. Afebrile. WBC 43 11/22 Patient is on 2L oxygen with good sats. Afebrile. WBC 39 today from 43. Awake and alert. 11/23 No acute events overnight. WBC trending down 36 today. Afebrile. 11/24 patient transferred to Hospitalist team for today. as per Infectious Disease specialist MSSA Bacteremia, MSSA in Urine, Pneumonia with Effusions, Proteus UTI, Prior history of Diarrhea, Discontinued Vancomycin, Discontinued Micafungin continued Cefepime and Flagyl by mouth, check C Diff PCR. 11/25 Patient stable in his bedroom, discussed with nurse Mr. Moreno replacing Phosphorus level. 11/26 Patient stable in his bedroom no nausea, vomit or diarrhea, discussed with patient and his . and nurse 3/6 Seen in the room in the presence of his , unable to continue further management for his Cancer due to multiple comorbidities, electronic health records specialist recommends to keep Hemoglobin over 8 , continue Lovenox, CAD Cardiology following, to continue supportive care, as per ID specialist MSSA Bacteremia, BC negative, Pneumonia with effusions Proteus UTI catheter related, Prior C Diff, Persistent Leukocytosis, recommended to continue Rocephin 11/28 Seen in his bedroom in the presence of nurse Miss Hart, continue present care, no complaint of Nausea, vomit or diarrhea multiple generalized Ecchymosis. 11/29 Patient seen in his bedroom Continue Rocephin as per ID specialist, No further treatment for his Lung cancer as per inventory specialist manager will be able to discharge during the next 24 to 48 hours. 11/30 No changes to anterior assessment. 12/01 stable as per Oncology not able to give more treatment due to comorbidities. stable in his bedroom. 12/02 Seen and discussed with nurse Miss Crooks, he is stable in his bedroom no complaint, no Nausea, vomit or diarrhea. 12/03 Discussed with patient and his they accept to talk about Hospice and May go to SNF with Hospice. asked for consult and placed for Discharge when arrangements performed. 12/04 Seen in his bedroom and awaiting for final recommendations from Hospice specialist for discharge. No nausea, vomit or diarrhea Assessment and Plan 1. Acute Metabolic Encephalopathy Resolved. 2. Respiratory Insufficiency/Bilateral Pleural Effusion/Possible HCAP/COPD/ Adenocarcinoma of the lung/History of PE continue to keep oxygen saturation over 92%, Bronchodilator, Mucolytic, incentive spirometry, Steroids. Status post Chest tube placement 11/12 Exudate effusion per LDH criteria, removed 11/19/16 Cytology negative for malignancy, Status post right thoracentesis with 1.2 L fluid removed, Transudate status post Pigtail catheter drainage of Lower pleural effusion, 11/18/16. Removed Chest tube. as per ID okay to discharge on Levaquin for seven days. 3. Acute on chronic systolic heart failure, Ischemic cardiomyopathy, Atrial Fibrillation with RVR. 4. Hypotension/CAD/status post STEMI 07/08/16 with PCI/DELMY to D1, on Amiodarone 400 mg daily and Metoprolol 12.5 mg BID. EF 30-35% Continue Plavix. 5. Diarrhea/History of C Diff Colitis. On Protonix as per [employer]. Improving diarrhea. 6. Staph aureus Bacteremia/Severe Sepsis with worsening Leukocytosis, UTI/ Possible HCAP, History of C Diff Colitis ID following, he was on Vancomycin, Cefepime, Micafungin, Flagyl by mouth at this time, continue on Ceftriaxone with Diagnosis of MSSA Bacteremia, BC negative, Pneumonia with effusions, Proteus UTI Catheter related. Urine Proteus Mirabilis Staph species. Prior C diff. and persistent Leukocytosis. 7. Non Small cell lung cancer of Right mainstem bronchus diagnosed with bulky mediastinal disease plus compression of his bronchus, improvement after chemotherapy and radiation therapy, on Lovenox 60 mg BID for atrial fibrillation 8. History of Stroke x 2 with left sided residual weakness. 9. Pulmonary Emboli on Lovenox 60 mg BID. 10. PAD status post revascularization of the lower extremities. 11. CAD status post PA, status post Cardiac Catheterization with PCI and drug eluting stent. History of coronary artery disease/PA, status post cardiac catheterization with PCI and drug eluding stent. 12. Electrolyte derangement Hypophosphatemia and Hypomagnesemia replaced Bilateral lower extremity SCDs. On Lovenox 60 mg subcutaneous every 12, IV Protonix Following recommendations by PT/OT. Discussed with patient and nurse in the room. he agrees with Hospice consult. Discharge Planning cleared for discharge by ID specialist on Levaquin Okay to discharge by inventory specialist manager. Discharge to SNF on Hospice. Pt Condition on Discharge: Guarded Discharge Disposition: Hospice/Med Facility Discharge Time: > 30 minutes Discharge Instructions DIET: Follow Instructions for: Heart Healthy Diet Speech Therapy-Diet Recommends: Mechanical Soft Activities you can perform: Regular-No Restrictions Chaka Larson MD Dec 03, 2016 14:17
[2016-12-03] MEDS ORDERED: MAGNESIUM SULFATE 1 GM PREMIX 100 ML ONE (14:45)
[2016-12-03] MEDS: LEVOFLOXACIN 500 MG TAB PO SCH (20:29)
[2016-12-03] MEDS: TEMAZEPAM 7.5 MG CAP PO PRN (22:03)
[2016-12-04] VITALS (9 sets, daily range): BP systolic 73–98; BP diastolic 54–66; PULSE 83–99; RESP 17–20; TEMP 96–98.4; O2SAT 92–95
[2016-12-04] MEDS: MORPHINE SULFATE 4 MG/ML INJ IV PUSH PRN (00:11)
[2016-12-04] MEDS: ENOXAPARIN SODIUM 60 MG/0.6 ML SYRINGE SQ SCH ×2 (03:59→15:09)
[2016-12-04] MEDS: RESP: ALBUTEROL 1.25 MG/3 ML NEB (PRN) NEB ×2 (10:03→22:02)
[2016-12-04] MEDS: MAGNESIUM OXIDE 400 MG TAB PO SCH ×2 (11:46→20:39)
[2016-12-04] MEDS: ENALAPRIL MALEATE 5 MG TAB PO SCH (11:46)
[2016-12-04] MEDS: CLOPIDOGREL 75 MG TAB PO SCH (11:47)
[2016-12-04] MEDS: METOPROLOL TARTRATE 25 MG TAB PO SCH ×3 (11:47→12:54)
[2016-12-04] MEDS: ASPIRIN EC 81 MG TABEC PO SCH (11:47)
[2016-12-04] MEDS: AMIODARONE 200 MG TAB PO SCH (11:47)
[2016-12-04] MEDS: predniSONE 5 MG TAB PO SCH (11:47)
[2016-12-04] MEDS: PANTOPRAZOLE SODIUM 40 MG VIAL IV SCH (11:48)
[2016-12-04] MEDS: SODIUM CHLORIDE 0.9% FLUSH 5 ML FLUSH IV FLUSH SCH ×2 (11:48→20:39)
[2016-12-04] MEDS: TIOTROPIUM BROMIDE 18 MCG INH INH SCH (11:49)
--- NOTE | 2016-12-04 15:48 | HHI.PR ---
Subjective Remarks This is a 64-year-old male with history of COPD, hypertension, coronary artery disease, STEMI on 07/08/16 s/p PCI and DELMY (Dr. Crouch), history of C. difficile colitis, non-small cell lung cancer receiving chemoradiation per Dr. Monteiro, history of pulmonary embolism on Lovenox who was admitted to hospital recently from 07/08-08/31/16 with above diagnoses. noted Mediastinal and Lung mass, as Non Small Cell Lung Cancer(Adenocarcinoma), status post Bronchoscopy. Brought from [facility] with fever, Hypotension, Encephalopathy, Septic, UTI, HCAP, ID specialist following, was in Intensive Care Unit received Zosyn in ER and given Cefepime and Flagyl by azure principal solution specialist and Vancomycin. Chemical Strength Tester Notes. 11/13 Patient is on 35% VM, afebrile. Off Levophed 11/14 Patient was started on Cardizem drip 15mg/hr overnight in addition was given Lopressor 2.5mg IV x1 for tachycardia. Afebrile. On Heparin drip. s/p transfusion 1u PRBC for Hgb 6.9 now 8.1. 11/15 Patient is on Neosyn 40 mics, off vasopressin. He was given Amiodarone bolus overnight for Afib with RVR HR remains 120-130's. Afebrile. 11/16: Remains on Cardizem and amiodarone. Off vasopressors. Patient's CXR appears worse. He does not appear in distress. Palliative care consulted and family and patient will decide on hospice after d/w Dr. Monteiro 11/17: Bedside ultrasound shows fairly large left pleural effusion despite chest tube. Possibly loculated. We'll hold off thoracentesis to additional chest tube and the patient makes decisions about comfort measures versus aggressive care. Patient waiting to talk to Dr. Monteiro to decide on hospice 11/18: Patient declined hospice and wants to continue aggressive care at this time. White count has increased to 48.9 with 97% neutrophils, I have requested ID reevaluation. Large right pleural effusion drained today 1.2 L clear fluid. UO 4L in 24 hours 11/19/16: Patient had right thoracentesis yesterday 11/18 with 1.2 L pleural fluid removed. A new left pigtail chest tube was placed also yesterday 11/18 with 580 mL of slightly blood-tinged pleural fluid removal over 24 hours. Patient now on nasal cannula tolerating well. Left 32 Lao chest tube was removed today 11/20: Breathing more comfortably now. Large bore chest tube removed yesterday. No pneumothorax. WBC count slightly improved from 45.5 to 42.5 11/21 No acute events overnight. Patient is lying in bed in NAD. Afebrile. WBC 43 11/22 Patient is on 2L oxygen with good sats. Afebrile. WBC 39 today from 43. Awake and alert. 11/23 No acute events overnight. WBC trending down 36 today. Afebrile. 11/24 patient transferred to Hospitalist team for today. as per Infectious Disease specialist MSSA Bacteremia, MSSA in Urine, Pneumonia with Effusions, Proteus UTI, Prior history of Diarrhea, Discontinued Vancomycin, Discontinued Micafungin continued Cefepime and Flagyl by mouth, check C Diff PCR. 11/25 Patient stable in his bedroom, discussed with nurse Mr. Moreno replacing Phosphorus level. 11/26 Patient stable in his bedroom no nausea, vomit or diarrhea, discussed with patient and his . and nurse 11/27 Seen in the room in the presence of his , unable to continue further management for his Cancer due to multiple comorbidities, data warehouse specialist recommends to keep Hemoglobin over 8 , continue Lovenox, CAD Cardiology following, to continue supportive care, as per ID specialist MSSA Bacteremia, BC negative, Pneumonia with effusions Proteus UTI catheter related, Prior C Diff, Persistent Leukocytosis, recommended to continue Rocephin 11/28 Seen in his bedroom in the presence of nurse Miss Hart, continue present care, no complaint of Nausea, vomit or diarrhea multiple generalized Ecchymosis. 11/29 Patient seen in his bedroom Continue Rocephin as per ID specialist, No further treatment for his Lung cancer as per research quality assurance specialist will be able to discharge during the next 24 to 48 hours. 11/30 No changes to anterior assessment. 12/01 stable as per Oncology not able to give more treatment due to comorbidities. stable in his bedroom. 12/02 Seen and discussed with nurse Miss Crooks, he is stable in his bedroom no complaint, no Nausea, vomit or diarrhea. 12/03 Discussed with patient and his they accept to talk about Hospice and May go to SNF with Hospice. asked for consult and placed for Discharge when arrangements performed. 12/04 Seen in his bedroom and awaiting for final recommendations from Hospice specialist for discharge. No nausea, vomit or diarrhea Objective Vital Signs Date Time Temp Pulse Resp B/P Pulse Ox O2 Delivery O2 Flow Rate FiO2 12/04/16 12:00 96.4 95 20 96/54 93 12/04/16 10:05 95 21 12/04/16 08:00 96.1 85 20 98/66 93 12/04/16 04:00 96.0 83 18 87/60 92 12/04/16 00:00 97.2 99 19 93/62 93 12/03/16 20:04 102 12/03/16 20:00 97.3 103 18 94/50 94 12/03/16 15:50 98.0 89 20 97/70 93 I/O 12/03/16 12/03/16 12/03/16 12/04/16 12/04/16 12/04/16 07:00 15:00 23:00 07:00 15:00 23:00 Intake Total 120 ml 240 ml 240 ml 240 ml Output Total 200 ml 400 ml 400 ml 200 ml 250 ml Balance -80 ml -160 ml -160 ml 40 ml -250 ml Intake Oral 120 ml 240 ml 240 ml 240 ml Output Urine Total 200 ml 400 ml 400 ml 200 ml 250 ml # Bowel Movements 0 1 Result Diagram: 12/03/16 1113 12/03/16 0528 Imaging Last Impressions Chest X-Ray 11/28/16 0000 Signed Impressions: Service Date/Time: Monday, November 28, 2016 11:38 - CONCLUSION: Stable small right pleural effusion with associative volume loss and/or consolidation. Trace left pleural effusion with airspace consolidation in the left lower lung zone. Sy Whitehead MD Chest CT 11/12/16 0000 Signed Impressions: Service Date/Time: Saturday, November 12, 2016 11:23 - CONCLUSION: 1. Bilateral pleural effusions left greater than right. Bilateral dependent parenchymal lung opacity indicating atelectasis. 2. Decrease in size of right hilar and mediastinal mass/enlarged lymph nodes. Prashant Valdez MD Procedures Thoracentesis, Pigtail, Chest tube placement. Other Results Laboratory Tests Test 11/29/16 12/01/16 12/01/16 12/02/16 17:43 00:09 18:15 04:56 Antibody Screen NEGATIVE Blood Type B NEGATIVE Crossmatch Leukocyte-Reduced Red Blood Cells Blood Bank Comment Metamyelocytes 1 % Acanthocytes OCC Prothrombin Time 12.0 SEC Prothromb Time International 1.1 RATIO Ratio Activated Partial 31.7 SEC Thromboplast Time Fibrinogen 415 mg/dL [place] Cells 1+ Total Bilirubin 0.4 MG/DL Aspartate Amino Transf 8 U/L (AST/SGOT) Alanine Aminotransferase 7 U/L (ALT/SGPT) Alkaline Phosphatase 78 U/L Albumin 1.4 GM/DL Test 12/03/16 12/03/16 05:28 11:13 Sodium Level 135 MEQ/L Potassium Level 3.7 MEQ/L Chloride Level 102 MEQ/L Carbon Dioxide Level 22.2 MEQ/L Anion Gap 11 MEQ/L Blood Urea Nitrogen 7 MG/DL Creatinine 0.20 MG/DL Estimat Glomerular Filtration 477 ML/MIN Rate Random Glucose 74 MG/DL Calcium Level 7.1 MG/DL Protein Corrected Calcium 8.8 MG/DL Phosphorus Level 1.9 MG/DL Magnesium Level 1.6 MG/DL Total Protein 4.1 GM/DL White Blood Count 30.7 TH/MM3 Red Blood Count 3.19 MIL/MM3 Hemoglobin 9.0 GM/DL Hematocrit 27.4 % Mean Corpuscular Volume 86.0 FL Mean Corpuscular Hemoglobin 28.4 PG Mean Corpuscular Hemoglobin 33.0 % Concent Red Cell Distribution Width 20.1 % Platelet Count 136 TH/MM3 Mean Platelet Volume 7.1 FL Neutrophils (%) (Auto) % Lymphocytes (%) (Auto) % Monocytes (%) (Auto) % Eosinophils (%) (Auto) % Basophils (%) (Auto) % Neutrophils # (Auto) TH/MM3 Lymphocytes # (Auto) TH/MM3 Monocytes # (Auto) TH/MM3 Eosinophils # (Auto) TH/MM3 Basophils # (Auto) TH/MM3 CBC Comment AUTO DIFF Differential Total Cells 100 Counted Neutrophils % (Manual) 82 % Band Neutrophils % 10 % Lymphocytes % 4 % Monocytes % 4 % Neutrophils # (Manual) 28.2 TH/MM3 Differential Comment FINAL DIFF MANUAL Toxic Granulation 1+ Toxic Vacuolation PRESENT Platelet Estimate LOW Platelet Morphology Comment NORMAL Ovalocytes 1+ Objective Remarks GENERAL: Patient is lying in be din NAD SKIN: Warm and dry. HEAD: Normocephalic. EYES: No scleral icterus. No injection or drainage. NECK: Supple, trachea midline. No JVD or lymphadenopathy. CARDIOVASCULAR: Regular rate and rhythm without murmurs, gallops, or rubs. RESPIRATORY: Breath sounds equal bilaterally. No accessory muscle use. GASTROINTESTINAL: Abdomen soft, non-tender, nondistended. MUSCULOSKELETAL: No cyanosis, or edema. BACK: Nontender without obvious deformity. No CVA tenderness. Neuro: Awake and alert Medications and IVs Current Medications Medications (Trade) Dose Ordered Sig/Elvia Route Start Time Stop Time Status Last Admin (NS Flush) 2 ml UNSCH PRN IV FLUSH 11/12/16 11:00 11/19/16 09:00 (NS Flush) 2 ml BID IV FLUSH 11/12/16 21:00 12/04/16 11:48 (Tylenol) 650 mg Q6H PRN PO 11/12/16 12:00 12/02/16 14:59 (Protonix Inj) 40 mg DAILY IV 11/13/16 09:00 12/04/16 11:48 (Spiriva Inh) 18 mcg DAILY INH 11/13/16 09:00 12/04/16 11:49 Clopidogrel Bisulfate 75 mg 75 mg DAILY PO 11/13/16 09:00 12/04/16 11:47 (Levophed-Dextrose Drip) 250 ml @ 0 mls/hr TITRATE IV 11/12/16 13:30 11/12/16 18:48 Miscellaneous Information Patient in critical care unit? Ass... Q361D XX 11/12/16 18:30 11/12/16 18:30 (D50w (Vial) Inj) 25 ml UNSCH PRN IV PUSH 11/13/16 10:15 11/30/16 10:03 Glucagon 1 mg 1 mg UNSCH PRN OTHER 11/13/16 10:15 (Neosynephrine Inj/D5W 500 ml Inj) 500 ml @ 0 mls/hr TITRATE IV 11/14/16 17:15 11/15/16 12:54 (Brethine Inj) 1 mg UNSCH PRN SQ 11/14/16 16:15 (Restoril) 7.5 mg HS PRN PO 11/15/16 22:45 12/03/16 22:03 Aspirin 81 mg 81 mg DAILY PO 11/16/16 09:00 12/04/16 11:47 (Pitressin Inj/ D5W 100 ml Inj) 100 ml @ 0 mls/hr Q0M IV 11/18/16 14:45 11/18/16 14:59 (Lovenox Inj) 60 mg Q12H SQ 11/20/16 16:00 12/04/16 15:09 (Pill Splitter) 1 ea UNSCH PRN OTHER 11/21/16 11:00 (Lopressor) 25 mg Q12HR PO 11/22/16 21:00 12/04/16 12:54 (Cordarone) 200 mg DAILY PO 11/23/16 09:00 12/04/16 11:47 (Vasotec) 5 mg DAILY PO 11/26/16 09:00 12/04/16 11:46 (Deltasone) 5 mg DAILY PO 11/30/16 09:00 12/04/16 11:47 (Morphine Inj) 2 mg Q3H PRN IV PUSH 11/30/16 00:45 12/04/16 00:11 (Levaquin) 500 mg Q24H PO 11/30/16 20:00 12/03/16 20:29 (Mag-Ox) 400 mg Q12HR PO 12/04/16 09:00 12/04/16 11:46 A/P Assessment and Plan 1. Acute Metabolic Encephalopathy Resolved. 2. Respiratory Insufficiency/Bilateral Pleural Effusion/Possible HCAP/COPD/ Adenocarcinoma of the lung/History of PE continue to keep oxygen saturation over 92%, Bronchodilator, Mucolytic, incentive spirometry, Steroids. Status post Chest tube placement 11/12 Exudate effusion per LDH criteria, removed 11/19/16 Cytology negative for malignancy, Status post right thoracentesis with 1.2 L fluid removed, Transudate status post Pigtail catheter drainage of Lower pleural effusion, 11/18/16. Removed Chest tube. as per ID rodri to discharge on Levaquin for seven days. 3. Acute on chronic systolic heart failure, Ischemic cardiomyopathy, Atrial Fibrillation with RVR. 4. Hypotension/CAD/status post STEMI 07/08/16 with PCI/DELMY to D1, on Amiodarone 400 mg daily and Metoprolol 12.5 mg BID. EF 30-35% Continue Plavix. 5. Diarrhea/History of C Diff Colitis. On Protonix as per Passenger Train Braker. Improving diarrhea. 6. Staph aureus Bacteremia/Severe Sepsis with worsening Leukocytosis, UTI/ Possible HCAP, History of C Diff Colitis ID following, he was on Vancomycin, Cefepime, Micafungin, Flagyl by mouth at this time, continue on Ceftriaxone with Diagnosis of MSSA Bacteremia, BC negative, Pneumonia with effusions, Proteus UTI Catheter related. Urine Proteus Mirabilis Staph species. Prior C diff. and persistent Leukocytosis. 7. Non Small cell lung cancer of Right mainstem bronchus diagnosed with bulky mediastinal disease plus compression of his bronchus, improvement after chemotherapy and radiation therapy, on Lovenox 60 mg BID for atrial fibrillation 8. History of Stroke x 2 with left sided residual weakness. 9. Pulmonary Emboli on Lovenox 60 mg BID. 10. PAD status post revascularization of the lower extremities. 11. CAD status post VT, status post Cardiac Catheterization with PCI and drug eluting stent. History of coronary artery disease/VT, status post cardiac catheterization with PCI and drug eluding stent. 12. Electrolyte derangement Hypophosphatemia and Hypomagnesemia replaced Bilateral lower extremity SCDs. On Lovenox 60 mg subcutaneous every 12, IV Protonix Following recommendations by PT/OT. Discussed with patient and nurse in the room. he agrees with Hospice consult. Discharge Planning cleared for discharge by ID specialist on Levaquin Okay to discharge by research quality assurance specialist. Discharge to SNF on Hospice. Chaka Larson MD Dec 04, 2016 15:48
[2016-12-04] MEDS ORDERED: SODIUM CHLORID 0.9% 500 ML INJ 500 ML IV ONE (20:30)
[2016-12-04] MEDS: LEVOFLOXACIN 500 MG TAB PO SCH (20:39)
[2016-12-04] MEDS: ACETAMINOPHEN 325 MG TAB PO PRN (22:26)
[2016-12-05] VITALS: BP 93/65; PULSE 95; RESP 18; TEMP 97; O2SAT 93
[2016-12-05 00:30] VITALS: BP 82/55
[2016-12-05] MEDS ORDERED: diphenhydrAMINE HCL 25 MG CAP PO ONE (00:45)
[2016-12-05] MEDS ORDERED: SODIUM CHLORID 0.9% 500 ML INJ 500 ML IV ONE (01:00)
[2016-12-05 02:03] VITALS: BP 88/60
[2016-12-05] MEDS: ENOXAPARIN SODIUM 60 MG/0.6 ML SYRINGE SQ SCH (04:44)
[2016-12-05 04:48] VITALS: BP 89/58; PULSE 94; RESP 16; TEMP 96.7; O2SAT 93
[2016-12-05 08:00] VITALS: BP 100/75; PULSE 82; RESP 16; TEMP 96.3; O2SAT 94
[2016-12-05] MEDS: AMIODARONE 200 MG TAB PO SCH (09:00)
[2016-12-05] MEDS: METOPROLOL TARTRATE 25 MG TAB PO SCH (09:00)
--- NOTE | 2016-12-05 09:11 | HHI.DS ---
Discharge Summary Admission Date Nov 12, 2016 at 11:12 Discharge Date: Dec 05, 2016 Admitting Diagnosis (1) Septic shock ICD Code: A41.9 Diagnosis: Principal (2) UTI (urinary tract infection) ICD Code: N39.0 Diagnosis: Principal (3) Acute encephalopathy ICD Code: G93.40 Diagnosis: Principal (4) HCAP (healthcare-associated pneumonia) ICD Code: J18.9 Diagnosis: Principal (5) Anemia ICD Code: D64.9 Diagnosis: Principal (6) STEMI (ST elevation myocardial infarction) ICD Code: I21.3 Diagnosis: Secondary (7) Afib ICD Code: I48.91 Diagnosis: Secondary (8) Pulmonary embolism ICD Code: I26.99 Diagnosis: Secondary (9) Non-small cell lung cancer (NSCLC) ICD Code: C34.90 Diagnosis: Principal (10) COPD (chronic obstructive pulmonary disease) ICD Code: J44.9 Diagnosis: Secondary Procedures See hospital course. Brief History - From Admission This is a 64-year-old male with history of COPD, hypertension, coronary artery disease, STEMI on 07/08/16 s/p PCI and DELMY (Dr. Crouch), history of C. difficile colitis, non-small cell lung cancer receiving chemoradiation per Dr. Monteiro, history of pulmonary embolism on Lovenox who was admitted to hospital recently from 07/08-08/31/16 with above diagnoses. During that admission he was noted to have a mediastinal and lung mass which was invading bilateral mainstem bronchi- subsequently diagnosed as a non-small cell lung cancer(adenocarcinoma). He had complete atelectasis of the right lung last admission which required bronchoscopy 2. With chemoradiation obstruction improved with resolution of atelectasis. Today patient was brought [facility] for fever, hypotension, confusion. Apparently patient was to be started on antibiotics for a UTI however prior to starting the antibiotics, he was found to be profoundly hypotensive, confused and was sent to ER. The patient also was noted to have diarrhea. His initial systolic blood pressure was in the 70s, rectal temperature of 100.4 and also tachycardic with a heart rate in 100's. Source of infection seems to be UTI, though HCAP cannot be ruled out. X-ray and CT of the chest shows bilateral pleural effusions left larger than right associated with infiltrate/atelectasis. He has multiple skin ulcers including his sacral area and his bilateral ankles. Patient received 3 L normal saline bolus with improvement in blood pressure. Levophed ordered. I have started patient on stress dose steroids as he was receiving prednisone at the retirement . Patient received Zosyn in the ED. I will place patient on cefepime, Flagyl (hx of C Diff) and IV vancomycin. Infectious disease consulted for septic shock in an immunocompromised patient. CBC/BMP: 12/03/16 1113 12/03/16 0528 Significant Findings Laboratory Tests Test 12/03/16 12/03/16 05:28 11:13 Sodium Level 135 MEQ/L (136-145) Creatinine 0.20 MG/DL (0.60-1.30) Calcium Level 7.1 MG/DL (8.5-10.1) Phosphorus Level 1.9 MG/DL (2.5-4.9) Total Protein 4.1 GM/DL (6.4-8.2) White Blood Count 30.7 TH/MM3 (4.0-11.0) Red Blood Count 3.19 MIL/MM3 (4.50-5.90) Hemoglobin 9.0 GM/DL (13.0-17.0) Hematocrit 27.4 % (39.0-51.0) Red Cell Distribution Width 20.1 % (11.6-17.2) Platelet Count 136 TH/MM3 (150-450) Neutrophils % (Manual) 82 % (16-70) Band Neutrophils % 10 % (0-6) Lymphocytes % 4 % (9-44) Neutrophils # (Manual) 28.2 TH/MM3 (1.8-7.7) Toxic Granulation 1+ (NORMAL) Toxic Vacuolation PRESENT (NONE SEEN) Platelet Estimate LOW (NORMAL) Ovalocytes 1+ (NORMAL) Imaging Last Impressions Chest X-Ray 11/28/16 0000 Signed Impressions: Service Date/Time: Monday, November 28, 2016 11:38 - CONCLUSION: Stable small right pleural effusion with associative volume loss and/or consolidation. Trace left pleural effusion with airspace consolidation in the left lower lung zone. yS Whitehead MD Chest CT 11/12/16 0000 Signed Impressions: Service Date/Time: Saturday, November 12, 2016 11:23 - CONCLUSION: 1. Bilateral pleural effusions left greater than right. Bilateral dependent parenchymal lung opacity indicating atelectasis. 2. Decrease in size of right hilar and mediastinal mass/enlarged lymph nodes. Prashant Valdez MD Hospital Course The patient was brought from the retirement for fever, hypotension and confusion. The patient also was noted to have diarrhea. His initial systolic blood pressure was in the 70s, rectal temperature of 100.4 and also tachycardic with a heart rate in 100's. X-ray and CT of the chest shows bilateral pleural effusions left larger than right associated with infiltrate/atelectasis. He had multiple skin ulcers including his sacral area and his bilateral ankles. The patient was started on stress dose steroids as he was receiving prednisone at the retirement. Infectious disease was consulted for septic shock in an immunocompromised patient. He was started on pressors, Cardizem and amiodarone. Palliative care was consulted. Bedside ultrasound showed fairly large left pleural effusion despite chest tube. Large right pleural effusion drained. A new left pigtail chest tube was placed. Cytology was negative for malignancy. He received bronchodilators, mucolytics, incentive spirometry and steroids. The pt was hypotensive so holding parameters were placed on his amiodarone and metoprolol. Per ID he was on vancomycin, Cefepime, Micafungin and Flagyl with diagnosis of MSSA bacteremia , pneumonia with effusions, proteus UTI (catheter related). The pt also with non small cell lung cancer of right mainstem bronchus diagnosed with bulky mediastinal disease plus compression of his bronchus, on chemotherapy and radiation therapy per oncology. On Lovenox 60 mg BID for atrial fibrillation and pulmonary emboli. Hospice was consulted but the pt declines that service at this time. Pt Condition on Discharge: Stable Discharge Disposition: Discharge to SNF Discharge Time: > 30 minutes Discharge Instructions DIET: Follow Instructions for: Heart Healthy Diet Speech Therapy-Diet Recommends: Mechanical Soft Activities you can perform: Regular-No Restrictions Follow up Referrals: Oncology - 1 Week PCP Follow-up - 1 Week Pulmonology - 1 Week New Medications: Hydrocodone-Acetaminophen (Lortab) 5-325 Mg Tab 1 TAB PO Q4H Do not take this medicine if you will drive a car or use a machine , only use it when resting at home PRN PAIN #12 Ref 0 TAB Amiodarone (Amiodarone) 200 Mg Tab 200 MG PO DAILY arrhythmia #[address] (Aspirin EC) 81 Mg Tabdr 81 MG PO DAILY CAD #30 Ref 0 TAB Enalapril (Enalapril) 5 Mg Tab 5 MG PO DAILY CAD #30 Ref 0 TAB Enoxaparin Inj (Lovenox Inj) 60 Mg/0.6 Ml Syr 60 MG SQ Q12H Arrhythmia #60 Ref 0 INJECTION Levofloxacin (Levaquin) 500 Mg Tab 500 MG PO Q24H Infection #7 Ref 0 TAB Magnesium Oxide (Magnesium Oxide) 241.3 Mg Tab 400 MG PO Q12HR Mag replacement #60 Ref 0 TAB Metoprolol Tartrate (Metoprolol Tartrate) 25 Mg Tab 25 MG PO Q12HR CAD #60 Ref 0 TAB Prednisone (Prednisone) 5 Mg Tab 5 MG PO DAILY COPD #30 Ref 0 TAB Temazepam (Restoril) 7.5 Mg Cap 7.5 MG PO HS PRN SLEEP #12 Ref 0 CAP Continued Medications: Acetaminophen (Tylenol) 325 Mg Tab 650 MG PO Q4H PRN Generalized Discomfort/Fever Ref 0 TAB Albuterol 18 GM Inh (Ventolin Hfa 18 GM Inh) 90 Mcg/Act Aer 2 PUFF INH Q6H COPD Days 30 INHALER Albuterol 18 GM Inh (Ventolin Hfa 18 GM Inh) 90 Mcg/Act Aer 2 PUFF INH Q4H PRN SHORTNESS OF BREATH #1 Ref 0 INHALER Albuterol Neb (Albuterol Neb) 2.5 Mg/3 Ml Neb 2.5 MG NEB QID Shortness Of Breath #1 Ref 0 NEBULE Albuterol Neb (Albuterol Neb) 2.5 Mg/3 Ml Neb 2.5 MG NEB Q2HR PRN SHORTNESS OF BREATH #1 Ref 0 NEBULE Ascorbic Acid (Vitamin C) 500 Mg Tab 500 MG PO BID supplement #60 TAB Atorvastatin (Lipitor) 40 Mg Tab 40 MG PO HS STEMI #30 TAB Bisacodyl Supp (Dulcolax Supp) 10 Mg Supp 10 MG RECTAL DAILY PRN OF NO RESULTS FROM MILK OF MAG #12 Ref 0 SUPP Clopidogrel (Plavix) 75 Mg Tab 75 MG PO DAILY Blood Clot Prevention #30 Ref 0 TAB Folic Acid (Folate) 1 Mg Tab 1 MG PO DAILY Nutritional Supplement Ref 0 TAB Lactic Acid (Ammonium Lactate) (Lac-Hydrin) 12% Lotn 1 APPLIC TOPICAL BID Apply to entire body excluding skin folds and web spaces # 225 Ref 0 ML Magnesium Citrate Liq (Citroma Liq) 300 Ml Liq 300 ML PO DAILY PRN IF NO RESULTS FROM ENEMA #1 Ref 0 BOTTLE Magnesium Hydroxide Liq (Milk of Magnesia Liq) 400 Mg/5 Ml Susp 30 ML PO DAILY PRN FOR NO BM IN 3 DAYS #1 Ref 0 BOTTLE Magnesium Oxide (Magnesium Oxide) 400 Mg Tab 400 MG PO BID Nutritional Supplement Ref 0 TAB Mirtazapine (Remeron) 15 Mg Tab 15 MG PO HS Depression Control #30 Ref 0 TAB Multiple Vitamin (Thera/Beta-Carotene) 1 Tab Tab 1 TAB PO DAILY suppl Days 30 TAB Nutritional Supplements (Prosource Plus) 1 Liq Liq 30 ML PO TID Nutritional Supplement Ondansetron (Zofran) 8 Mg Tab 8 MG PO Q8HR PRN NAUSEA OR VOMITING Ref 0 TAB Phenazopyridine (Pyridium) 100 Mg Tab 100 MG PO TID START:11/13/2016 UTI Ref 0 TAB Sodium Phosphates (Enema Disposable) 1 Veronica Veronica 1 APPLIC MI DAILY PRN IF NO RESULTS FROM DULCOLAX Thiamine (Vitamin B-1) 100 Mg Tab 100 MG PO DAILY supplement #30 TAB Tiotropium Inh (Spiriva Handihaler) 18 Mcg Cap 18 MCG INH DAILY COPD Days 30 CAP Zinc Sulfate (Zinc Sulfate) 220 Mg Cap 220 MG PO DAILY supplement #30 CAP Discontinued Medications: Atenolol (Atenolol) 25 Mg Tab 12.5 MG PO DAILY Blood Pressure Management #30 TAB Ciprofloxacin (Cipro) 500 Mg Tab 500 MG PO BID Infection Days 7 Ref 0 TAB Diltiazem CD 24 HR (Cardizem CD 24 HR) 180 Mg Caper 180 MG PO DAILY heart #30 CAP Enoxaparin Inj (Lovenox Inj) 100 Mg/Ml Syr 90 MG SQ DAILY Blood Clot Prevention Ref 0 SYRINGE Lisinopril (Lisinopril) 5 Mg Tab 2.5 MG PO DAILY STEMI #30 TAB Lorazepam (Ativan) 0.5 Mg Tab 0.5 MG PO Q8H PRN ANXIETY Ref 0 TAB Melatonin (Melatonin) 3 Mg Tab 3 MG PO HS SLEEP Prednisone (Prednisone) 10 Mg Tab 10 MG PO DAILY Ref 0 TAB Temazepam (Restoril) 15 Mg Cap 15 MG PO HS SLEEP #30 Ref 0 CAP Abraham Todd DO Dec 05, 2016 09:11
--- NOTE | 2016-12-05 09:17 | HHI.PR ---
Subjective Remarks The patient said he was unable to get his sleeping pill last night because of his blood pressure. He currently has no pain. He was resting comfortably. He was interested in being discharged to hospice. He says he has been too weak to get out of bed. Discussed with nursing. Objective Vitals Vital Signs Date Time Temp Pulse Resp B/P Pulse Ox O2 Delivery O2 Flow Rate FiO2 12/05/16 08:00 96.3 82 16 100/75 94 12/05/16 04:48 96.7 94 16 89/58 93 12/05/16 02:03 88/60 12/05/16 00:30 82/55 12/05/16 00:00 97.0 95 18 93/65 93 12/04/16 22:45 93/58 12/04/16 22:02 92 12/04/16 20:00 97.0 99 17 76/54 94 12/04/16 15:48 98.4 91 20 73/56 95 12/04/16 12:00 96.4 95 20 96/54 93 12/04/16 10:05 95 21 I/O 12/04/16 12/04/16 12/04/16 12/05/16 12/05/16 12/05/16 07:00 15:00 23:00 07:00 15:00 23:00 Intake Total 240 ml 240 ml Output Total 200 ml 250 ml 150 ml Balance 40 ml -250 ml 90 ml Intake Oral 240 ml 240 ml Output Urine Total 200 ml 250 ml 150 ml # Bowel Movements 1 Result Diagram: 12/03/16 1113 12/03/16 0528 Imaging Last Impressions Chest X-Ray 11/28/16 0000 Signed Impressions: Service Date/Time: Monday, November 28, 2016 11:38 - CONCLUSION: Stable small right pleural effusion with associative volume loss and/or consolidation. Trace left pleural effusion with airspace consolidation in the left lower lung zone. Sy Whitehead MD Chest CT 11/12/16 0000 Signed Impressions: Service Date/Time: Saturday, November 12, 2016 11:23 - CONCLUSION: 1. Bilateral pleural effusions left greater than right. Bilateral dependent parenchymal lung opacity indicating atelectasis. 2. Decrease in size of right hilar and mediastinal mass/enlarged lymph nodes. Prashant Valdez MD Objective Remarks GENERAL: Patient is lying in bed and in NAD. SKIN: Warm and dry. HEAD: Normocephalic. EYES: No scleral icterus. No injection or drainage. NECK: Supple, trachea midline. No JVD or lymphadenopathy. CARDIOVASCULAR: Regular rate and rhythm without murmurs, gallops, or rubs. RESPIRATORY: Breath sounds equal bilaterally. No accessory muscle use. GASTROINTESTINAL: Abdomen soft, non-tender, nondistended. MUSCULOSKELETAL: No cyanosis, or edema. BACK: Nontender without obvious deformity. No CVA tenderness. NEURO: Awake and alert. PSYCH: Mood and affect appropriate. Medications and IVs Current Medications Medications (Trade) Dose Ordered Sig/Elvia Route Start Time Stop Time Status Last Admin (NS Flush) 2 ml UNSCH PRN IV FLUSH 11/12/16 11:00 11/19/16 09:00 (NS Flush) 2 ml BID IV FLUSH 11/12/16 21:00 12/04/16 20:39 (Tylenol) 650 mg Q6H PRN PO 11/12/16 12:00 12/04/16 22:26 (Protonix Inj) 40 mg DAILY IV 11/13/16 09:00 12/04/16 11:48 (Spiriva Inh) 18 mcg DAILY INH 11/13/16 09:00 12/04/16 11:49 Clopidogrel Bisulfate 75 mg 75 mg DAILY PO 11/13/16 09:00 12/04/16 11:47 (Levophed-Dextrose Drip) 250 ml @ 0 mls/hr TITRATE IV 11/12/16 13:30 11/12/16 18:48 Miscellaneous Information Patient in critical care unit? Ass... Q361D XX 11/12/16 18:30 11/12/16 18:30 (D50w (Vial) Inj) 25 ml UNSCH PRN IV PUSH 11/13/16 10:15 11/30/16 10:03 Glucagon 1 mg 1 mg UNSCH PRN OTHER 11/13/16 10:15 (Neosynephrine Inj/D5W 500 ml Inj) 500 ml @ 0 mls/hr TITRATE IV 11/14/16 17:15 11/15/16 12:54 (Brethine Inj) 1 mg UNSCH PRN SQ 11/14/16 16:15 (Restoril) 7.5 mg HS PRN PO 11/15/16 22:45 12/03/16 22:03 Aspirin 81 mg 81 mg DAILY PO 11/16/16 09:00 12/04/16 11:47 (Pitressin Inj/ D5W 100 ml Inj) 100 ml @ 0 mls/hr Q0M IV 11/18/16 14:45 11/18/16 14:59 (Lovenox Inj) 60 mg Q12H SQ 11/20/16 16:00 12/05/16 04:44 (Pill Splitter) 1 ea UNSCH PRN OTHER 11/21/16 11:00 (Lopressor) 25 mg Q12HR PO 11/22/16 21:00 12/04/16 12:54 (Cordarone) 200 mg DAILY PO 11/23/16 09:00 12/04/16 11:47 (Vasotec) 5 mg DAILY PO 11/26/16 09:00 12/04/16 11:46 (Deltasone) 5 mg DAILY PO 11/30/16 09:00 12/04/16 11:47 (Morphine Inj) 2 mg Q3H PRN IV PUSH 11/30/16 00:45 12/04/16 00:11 (Levaquin) 500 mg Q24H PO 11/30/16 20:00 12/04/16 20:39 (Mag-Ox) 400 mg Q12HR PO 12/04/16 09:00 12/04/16 20:39 A/P Problem List: (1) Septic shock ICD Code: A41.9 Status: Acute (2) UTI (urinary tract infection) ICD Code: N39.0 Status: Acute (3) Acute encephalopathy ICD Code: G93.40 Status: Acute (4) HCAP (healthcare-associated pneumonia) ICD Code: J18.9 Status: Acute (5) Anemia ICD Code: D64.9 Status: Acute (6) STEMI (ST elevation myocardial infarction) ICD Code: I21.3 Status: Chronic (7) Afib ICD Code: I48.91 Status: Chronic (8) Pulmonary embolism ICD Code: I26.99 Status: Acute (9) Non-small cell lung cancer (NSCLC) ICD Code: C34.90 Status: Acute (10) COPD (chronic obstructive pulmonary disease) ICD Code: J44.9 Status: Acute Assessment and Plan 1. Acute Metabolic Encephalopathy Resolved. 2. Respiratory Insufficiency/Bilateral Pleural Effusion/Possible HCAP/COPD/ Adenocarcinoma of the lung/History of PE continue to keep oxygen saturation over 92%, Bronchodilator, Mucolytic, incentive spirometry, Steroids. Status post Chest tube placement 11/12 Exudate effusion per LDH criteria, removed 11/19/16 Cytology negative for malignancy, Status post right thoracentesis with 1.2 L fluid removed, Transudate status post Pigtail catheter drainage of Lower pleural effusion, 11/18/16. Removed Chest tube. as per ID okay to discharge on Levaquin for seven days. 3. Acute on chronic systolic heart failure, Ischemic cardiomyopathy, Atrial Fibrillation with RVR. 4. Hypotension/CAD/status post STEMI 07/08/16 with PCI/DELMY to D1, on Amiodarone 400 mg daily and Metoprolol 12.5 mg BID. EF 30-35% Continue Plavix. Holding parameters for amiodarone and metoprolol. 5. Diarrhea/History of C Diff Colitis. On Protonix as per [employer]. Improving diarrhea. 6. Staph aureus Bacteremia/Severe Sepsis with worsening Leukocytosis, UTI/ Possible HCAP, History of C Diff Colitis ID following, he was on Vancomycin, Cefepime, Micafungin, Flagyl by mouth at this time, continue on Ceftriaxone with Diagnosis of MSSA Bacteremia, BC negative, Pneumonia with effusions, Proteus UTI Catheter related. Urine Proteus Mirabilis Staph species. Prior C diff. and persistent Leukocytosis. 7. Non Small cell lung cancer of Right mainstem bronchus diagnosed with bulky mediastinal disease plus compression of his bronchus, improvement after chemotherapy and radiation therapy, on Lovenox 60 mg BID for atrial fibrillation 8. History of Stroke x 2 with left sided residual weakness. 9. Pulmonary Emboli on Lovenox 60 mg BID. 10. PAD status post revascularization of the lower extremities. 11. CAD status post NH, status post Cardiac Catheterization with PCI and drug eluting stent. History of coronary artery disease/NH, status post cardiac catheterization with PCI and drug eluding stent. 12. Electrolyte derangement Hypophosphatemia and Hypomagnesemia replaced PPx: Bilateral lower extremity SCDs, On Lovenox 60 mg subcutaneous every 12; Protonix. Discharge Planning Likely d/c to hospice. Problem Qualifiers (1) UTI (urinary tract infection): (2) Anemia: (3) STEMI (ST elevation myocardial infarction): Qualified Code: I21.3 - ST elevation myocardial infarction (STEMI), unspecified artery Abraham Todd DO Dec 05, 2016 09:17
[2016-12-05] MEDS: RESP: ALBUTEROL 1.25 MG/3 ML NEB (PRN) NEB (11:14)
[2016-12-05 12:00] VITALS: BP 105/68; PULSE 101; RESP 16; TEMP 96.2; O2SAT 94; O2SAT 95
== END 2016-12-05 15:33 | DRG 698 ==
LOC: NEPE 08:51 → NEDA 11:12 → HIME 12:09 → HOCA 11-24 22:19
PROVIDERS: ADMIT Internal Medicine; ATTEND Hospitalist
PROC: 02HV33Z Insertion of Infusion Device into Superior Vena Cava, Percutaneous Approach (ICD-10-PCS; principal; 2016-11-12)
PROC: 0W9B3ZX Drainage of Left Pleural Cavity, Percutaneous Approach, Diagnostic (ICD-10-PCS; 2016-11-12)
PROC: 0W9B30Z Drainage of Left Pleural Cavity with Drainage Device, Percutaneous Approach (ICD-10-PCS; 2016-11-12)
PROC: 30233N1 Transfusion of Nonautologous Red Blood Cells into Peripheral Vein, Percutaneous Approach (ICD-10-PCS; 2016-11-12)
PROC: 0W9B3ZX Drainage of Left Pleural Cavity, Percutaneous Approach, Diagnostic (ICD-10-PCS; 2016-11-18)
PROC: 0W993ZX Drainage of Right Pleural Cavity, Percutaneous Approach, Diagnostic (ICD-10-PCS; 2016-11-18)
DX: T83.511A Infection and inflammatory reaction due to indwelling urethral catheter, initial encounter (principal); A41.01 Sepsis due to Methicillin susceptible Staphylococcus aureus; R65.21 Severe sepsis with septic shock; J96.01 Acute respiratory failure with hypoxia; J69.0 Pneumonitis due to inhalation of food and vomit; G93.41 Metabolic encephalopathy; I50.23 Acute on chronic systolic (congestive) heart failure; J90 Pleural effusion, not elsewhere classified; J18.9 Pneumonia, unspecified organism; R64 Cachexia; E87.2 Acidosis; I42.0 Dilated cardiomyopathy; I69.354 Hemiplegia and hemiparesis following cerebral infarction affecting left non-dominant side; C34.01 Malignant neoplasm of right main bronchus; J44.0 Chronic obstructive pulmonary disease with (acute) lower respiratory infection; E46 Unspecified protein-calorie malnutrition; J98.11 Atelectasis; N39.0 Urinary tract infection, site not specified; I48.0 Paroxysmal atrial fibrillation; I25.10 Atherosclerotic heart disease of native coronary artery without angina pectoris; I49.1 Atrial premature depolarization; I25.2 Old myocardial infarction; I73.9 Peripheral vascular disease, unspecified; R62.7 Adult failure to thrive; Y95 Nosocomial condition; E78.5 Hyperlipidemia, unspecified; E83.39 Other disorders of phosphorus metabolism; E83.42 Hypomagnesemia; E87.6 Hypokalemia; I25.5 Ischemic cardiomyopathy; B96.4 Proteus (mirabilis) (morganii) as the cause of diseases classified elsewhere; D64.9 Anemia, unspecified; R19.7 Diarrhea, unspecified; I10 Essential (primary) hypertension; Y84.6 Urinary catheterization as the cause of abnormal reaction of the patient, or of later complication, without mention of misadventure at the time of the procedure; Z87.891 Personal history of nicotine dependence; Z68.25 Body mass index [BMI] 25.0-25.9, adult; Z86.718 Personal history of other venous thrombosis and embolism; Z92.21 Personal history of antineoplastic chemotherapy; Z86.711 Personal history of pulmonary embolism; Z95.5 Presence of coronary angioplasty implant and graft; Z92.3 Personal history of irradiation; Z79.52 Long term (current) use of systemic steroids
CPT/HCPCS: 32551; 32554; 36430; 36556; 36600; 71010; 71250; 76937; 80048; 80053; 80202; 81001; 82150; 82550; 82805; 82945; 82948; 83605; 83615; 83735; 83986; 84100; 84132; 84155; 84157; 84443; 84484; 85007; 85027; 85384; 85610; 85730; 86403; 86850; 86900; 86901; 86920; 87015; 87040; 87070; 87071; 87077; 87086; 87102; 87116; 87186; 87205; 87206; 87449; 87493; 87641; 88112; 88305; 89051; 93005; 93306; 94640; 94664; 96365; C9113; J0282; J0690; J0692; J0696; J1160; J1580; J1644; J1650; J1720; J1940; J2060; J2248; J2270; J2370; J2543; J3370; J3475; J3480; J7030; J7040; J7050; J7060; J7512; J7613; P9016; P9047

== ENCOUNTER 2016-12-08 00:12 | Emergency (ER) | payer MEDICARE, OTHER ==
[~2016-12-08] VITALS: Ht 177.8 cm; Wt 70.5 kg
[~2016-12-08 00:12] MED LIST changes: +AMIO200T PO; +ASPI81TA11 PO; -ATEN25TA PO; -CARD180C5 PO; +CITRSOL4 PO; +ENAL5TAB PO; +ENEMENE5 PR; +HYDR-3533 PO; +LAC-12LO3 TOPICAL; +LEVA500T PO; -LEVA750T PO; -LISI-519 PO; +MAGN400T2 PO; -METR-1 PO; +MILKSUS PO; +PHEN0.4T PO; -PRED10 PO; +PRED5TAB PO; +PROSLIQ PO; +REME15TA PO; -REST15CA PO; +TEMA7.5C9 PO; +TYLE325T PO; +ZOFR8TAB PO
[2016-12-08 00:23] VITALS: PULSE 106; RESP 22; TEMP 98.4
--- NOTE | 2016-12-08 00:25 | PD ---
HPI Chief Complaint: shortness of breath, generalized weakness Time Seen by Provider: 00:23 Travel History International Travel<30 days: No Contact w/Intl Traveler<30days: No Traveled to known affect area: No History of Present Illness HPI 65-year-old male with history of lung cancer was just discharged from this hospital 3 days ago and went to rehabilitation was sent back because he was progressively getting short of breath. His is here who is giving most of the history and says that he had pleural fluid taken out on the left side of his chest about 2 weeks ago when he first came in. His chemotherapy was stopped since he was very weak. His last chemotherapy was about a month ago. He has been getting frequent skin tears and skin weeping. He is swelling up all over his body. And the shortness of breath was getting worse. Patient seemed in a terrible state. He was complaining of his lower back hurting because he had a "sore" there. His said that he has not eaten much in past 2 days given his condition. His heart rate was in 100s. I asked the nurse to take a rectal temperature which was 98.5. He seemed to be mostly bedbound with bilateral ankle and feet cushioning to prevent decubitus. The "sore" on his bottom happens to be a stage 3 decubitus ulcer. Upon asking regarding the prognosis that was explained to them for this cancer the said she was not sure however during his last hospitalization he was asked about hospice and he was not decided on that yet. [facility] Past Medical History Narrative Medical List of his past medical, surgical, social and family history was reviewed from the nursing note. Arthritis: No Asthma: No Autoimmune Disease: No Anxiety: No Depression: No Heart Rhythm Problems: No Cancer: Yes Cardiovascular Problems: No High Cholesterol: No Chemotherapy: Yes Congestive Heart Failure: No COPD: Yes Cerebrovascular Accident: Yes (34 years ago) Diabetes: No Diminished Hearing: No Endocrine: No GERD: Yes Genitourinary: No Hepatitis: No Hiatal Hernia: No Hypertension: Yes Immune Disorder: No Kidney Stones: No Musculoskeletal: No Neurologic: No Psychiatric: No Reproductive: No Respiratory: Yes (COPD) Migraines: No Radiation Therapy: Yes Renal Failure: No Seizures: No Sickle Cell Disease: No Sleep Apnea: No Thyroid Disease: No Ulcer: No Past Surgical History Abdominal Surgery: Yes (left inguinal hernia repair x2) AICD: No Appendectomy: Yes Arteriovenous Shunt: No Cardiac Surgery: No Ear Surgery: No Endocrine Surgery: No Eye Surgery: No Genitourinary Surgery: No Gynecologic Surgery: No Insulin Pump: No Joint Replacement: No Oral Surgery: Yes (t&a) Pacemaker: No Tonsillectomy: Yes (ADENOIDS) Other Surgery: Yes Social History Alcohol Use: No Tobacco Use: No Substance Use: No Allergies-Medications (Allergen,Severity, Reaction): Coded Allergies: No Known Allergies (Unverified , 07/08/16) Comments No known drug allergies. Reported Meds & Prescriptions Reported Meds & Active Scripts Active Lortab (Hydrocodone-Acetaminophen) 5-325 Mg Tab 1 Tab PO Q4H PRN Do not take this medicine if you will drive a car or use a machine, only use it when resting at home Restoril (Temazepam) 7.5 Mg Cap 7.5 Mg PO HS PRN Prednisone 5 Mg Tab 5 Mg PO DAILY Metoprolol Tartrate 25 Mg Tab 25 Mg PO Q12HR Magnesium Oxide 241.3 Mg Tab 400 Mg PO Q12HR Levaquin (Levofloxacin) 500 Mg Tab 500 Mg PO Q24H Lovenox Inj (Enoxaparin Sodium) 60 Mg/0.6 Ml Syr 60 Mg SQ Q12H Enalapril (Enalapril Maleate) 5 Mg Tab 5 Mg PO DAILY Aspirin EC (Aspirin) 81 Mg Tabdr 81 Mg PO DAILY Amiodarone (Amiodarone HCl) 200 Mg Tab 200 Mg PO DAILY Spiriva Handihaler (Tiotropium Inh) 18 Mcg Cap 18 Mcg INH DAILY 30 Days Ventolin Hfa 18 GM Inh (Albuterol Sulfate) 90 Mcg/Act Aer 2 Puff INH Q6H 30 Days Thera/Beta-Carotene (Multiple Vitamin) 1 Tab Tab 1 Tab PO DAILY 30 Days Zinc Sulfate 220 Mg Cap 220 Mg PO DAILY Vitamin B-1 (Thiamine HCl) 100 Mg Tab 100 Mg PO DAILY Lipitor (Atorvastatin Calcium) 40 Mg Tab 40 Mg PO HS Vitamin C (Ascorbic Acid) 500 Mg Tab 500 Mg PO BID Reported Pyridium (Phenazopyridine HCl) 100 Mg Tab 100 Mg PO TID START:11/13/2016 Prosource Plus (Nutritional Supplements) 1 Liq Liq 30 Ml PO TID Lac-Hydrin (Lactic Acid (Ammonium Lactate)) 12% Lotn 1 Applic TOPICAL BID Apply to entire body excluding skin folds and web spaces Remeron (Mirtazapine) 15 Mg Tab 15 Mg PO HS Ventolin Hfa 18 GM Inh (Albuterol Sulfate) 90 Mcg/Act Aer 2 Puff INH Q4H PRN Zofran (Ondansetron HCl) 8 Mg Tab 8 Mg PO Q8HR PRN Citroma Liq (Magnesium Citrate) 300 Ml Liq 300 Ml PO DAILY PRN Enema Disposable (Sodium Phosphates) 1 Veronica Veronica 1 Applic PA DAILY PRN Milk of Magnesia Liq (Magnesium Hydroxide) 400 Mg/5 Ml Susp 30 Ml PO DAILY PRN Magnesium Oxide 400 Mg Tab 400 Mg PO BID Albuterol Neb (Albuterol Sulfate) 2.5 Mg/3 Ml Neb 2.5 Mg NEB Q2HR PRN Albuterol Neb (Albuterol Sulfate) 2.5 Mg/3 Ml Neb 2.5 Mg NEB QID Tylenol (Acetaminophen) 325 Mg Tab 650 Mg PO Q4H PRN Plavix (Clopidogrel Bisulfate) 75 Mg Tab 75 Mg PO DAILY Folate (Folic Acid) 1 Mg Tab 1 Mg PO DAILY Dulcolax Supp (Bisacodyl) 10 Mg Supp 10 Mg RECTAL DAILY PRN Narrative Medication List of his home medications reviewed from the nursing note. Review of Systems Except as stated in HPI: all other systems reviewed are Neg Physical Exam Narrative GENERAL: Lethargic, moderate to significant respiratory distress, looks older than his age SKIN: Warm and dry. Pale, multiple skin tears and ecchymosis. From the skin tear area serous fluid is noticed to be weeping out. Patient has a stage III decubitus ulcer over the sacral area that is 1 cm in diameter HEAD: Atraumatic. Normocephalic. EYES: Pupils equal and round. No scleral icterus. No injection or drainage. Pallor ENT: No nasal bleeding or discharge. Mucous membranes pink and moist. NECK: Trachea midline. No JVD. CARDIOVASCULAR: Regular rate and rhythm. No murmur appreciated. RESPIRATORY: Respiratory distress, tachypnea, want to words per breath. Diminished air entry on the right side GASTROINTESTINAL: Abdomen soft, non-tender, nondistended. Hepatic and splenic margins not palpable. MUSCULOSKELETAL: No obvious deformities. No clubbing. No cyanosis. No edema. NEUROLOGICAL: Lethargic but answering questions appropriately. No obvious cranial nerve deficits. Motor grossly within normal limits. Normal speech. PSYCHIATRIC: Appropriate mood and affect; insight and judgment normal. Data Data Last Documented VS Orders Chest, Single Ap (12/08/16 ) Morphine Inj (Morphine Inj) (12/08/16 01:00) Hospice Consult (12/08/16 00:52) [facility] Medical Decision Making Medical Screen Exam Complete: Yes Emergency Medical Condition: Yes Medical Record Reviewed: Yes Differential Diagnosis Worsening lung mass/cancer, recurrent pleural effusion, pneumonia, anemia, PE Narrative Course 2:18 AM given patient's clinical condition it did not seem to be a good prognosis. Especially since he returned within 3 days of being discharged from the hospital. I had a discussion with his and patient regarding the practical course of his disease and the obvious poor prognosis given his current condition. I gave the patient the option whether he wanted me to go ahead and order all kinds of blood test. There was a good chance he would be anemic that would require blood transfusion and quite possibly abnormal chest x- ray. However, in spite of currently fixing these situations there was still the medical futility of his ultimate underlying condition. Prolonging this would seem to be prolonging his pain and misery. Patient opted not to have any blood test done. He was okay with a chest x-ray which definitely showed almost a white out on the right side. He wanted hospice to be called. The hospice nurse is currently in the room talking to the patient. I would hope that they will be able to get him situated at a hospice facility. I gave the patient 5 mg of IV morphine for pain control and comfort. 2:36 AM the hospice nurse had done her intake and I spoke with her. She would [facility] the [facility] and they will be sending orders for comfort care as per hospice protocol. In the morning the hospice nurse will go to the [facility] and talk with the and the further care and expectations would be rolled out. I'm going to discharge the patient at this point. Procedures EKG Prior to Arrival: No Diagnosis Primary Impression: end-stage lung cancer Additional Impressions: Respiratory distress Pleural effusion Additional Instructions: Hospice nurse will make sure in the morning had the [facility]. There will be standing orders for comfort care medication. Please call the hospice nurse if there is any questions at the number that has been provided to you. Disposition: [facility] H[facility] FACILITY Condition: Serious Andrea,Shravanti R. MD Dec 08, 2016 00:25 if there is any questions at the number that has been provided to you. Disposition: [facility] Condition: Sammy Almanzar MD Dec 08, 2016 00:25
[2016-12-08] MEDS ORDERED: MORPHINE SULFATE 8 MG/ML INJ IV PUSH ONE (01:00)
--- NOTE | 2016-12-08 01:35 | RADRPT ---
EXAM DATE/TIME: 12/08/2016 00:54 [facility] COMPARISON: CHEST SINGLE AP, November 28, 2016, 11:38. INDICATIONS : Short of breath. MEDICAL HISTORY : Hypertension. Chronic obstructive pulmonary disease. SURGICAL HISTORY : None. ENCOUNTER: Initial ACUITY: 2 days PAIN SCORE: 0/10 LOCATION: chest FINDINGS: There is a large right-sided pleural effusion, increased in size since November 28. Small left effusion. There is compressive atelectasis in the right lung. There is mild left basilar airspace disease that could represent mild edema. CONCLUSION: 1. Large right pleural effusion increased in size from November 28. Small left effusion. 2. Hazy airspace disease left lung. Differential diagnosis includes mild pulmonary edema. No pneumoth orax. Cj Crouch MD on December 08, 2016 at 1:33 Board Certified Radiologist. This report was verified electronically.
== END 2016-12-08 04:26 | disposition hospice, inpatient (51) ==
LOC: NEPE 00:12
DX: C34.90 Malignant neoplasm of unspecified part of unspecified bronchus or lung (principal); R06.00 Dyspnea, unspecified; J90 Pleural effusion, not elsewhere classified; L89.153 Pressure ulcer of sacral region, stage 3; I10 Essential (primary) hypertension; Z87.09 Personal history of other diseases of the respiratory system; Z87.19 Personal history of other diseases of the digestive system
CPT/HCPCS: 71010; 96374; 99285; J2270